=== PATIENT | male | born 1935 | race African-American/Black ===

== ENCOUNTER 2016-07-03 15:00 | Inpatient (IN) | payer MEDICARE, OTHER ==
--- NOTE | 2016-07-03 16:14 | ER Document Report ---
ED General - General Chief Complaint: High Blood Sugar Stated Complaint: BLOOD SUGAR ISSUE Notes: This is a 72-year-old male diabetes, history of a flutter who presents to the ER with increased lethargy, elevated blood sugars, right foot pain and frequent falling over the past several days. Family states he's been stuck on the floor a few times for several hours because he could not get himself up. He does live alone but has a nephew that checks on him daily. He denies fevers but states he's had some chills and sweats. He's had some nausea but no vomiting. He states blood sugars up and running in the 3-400 range which is high for him. He notes that the foot has been bleeding and had a bad odor. TRAVEL OUTSIDE OF THE [place] IN LAST 30 DAYS: No - HPI Onset/Duration: Gradual - Related Data Allergies/Adverse Reactions: No Known Allergies Allergy (Unverified 02/20/14 21:28) Home Medications: Current Home Medications Amlodipine Besylate [Norvasc 10 mg Tablet] 10 mg PO DAILY 07/03/16 [History] Apixaban [Eliquis 5 mg Tablet] 5 mg PO Q12 07/03/16 [History] Aspirin [Ecotrin] 325 mg PO DAILY 07/03/16 [History] B Complex & C No.20/Folic Acid [Renal Caps Softgel] 1 cap PO DAILY 07/03/16 [ History] Bumetanide [Bumex 1 mg Tablet] 1 mg PO DAILY 07/03/16 [History] Colchicine [Colcrys 0.6 mg Tablet] 0.6 mg PO DAILY 07/03/16 [History] Ergocalciferol (Vitamin D2) [Vitamin D2] 50,000 units PO ABDALLA 07/03/16 [History] Ferrous Sulfate [Feosol 325 mg Tablet] 325 mg PO BID 07/03/16 [History] Glipizide [Glucotrol 10 mg Tablet] 10 mg PO DAILY 07/03/16 [History] Insulin Glargine,Hum.rec.anlog [Lantus] 40 units SQ QHS 07/03/16 [History] Isosorbide Mononitrate [Imdur 30 mg Tablet.er] 30 mg PO DAILY 07/03/16 [History] Metoprolol Tartrate [Lopressor 25 mg Tablet] 25 mg PO DAILY 07/03/16 [History] Pantoprazole Sodium [Protonix] 40 mg PO DAILY 07/03/16 [History] Potassium Chloride [Klor-Con 10] 10 meq PO DAILY 07/03/16 [History] Red Yeast Rice 1 cap PO DAILY 07/03/16 [History] Tiotropium [place] [Spiriva Handihaler 18 mcg/dose (30 Dose)] 1 cap IH DAILY 05/09 [History] Past Medical History - General Information source: Patient - Social History Smoking Status: Unknown if Ever Smoked Frequency of alcohol use: None Drug Abuse: None Family History: Reviewed & Not Pertinent - Past Medical History Cardiac Medical History: Reports: Hx Atrial Fibrillation, Hx Congestive Heart Failure, Hx Hypercholesterolemia, Hx Hypertension Pulmonary Medical History: Reports: Hx COPD Endocrine Medical History: Reports: Hx Diabetes Mellitus Type 2 - SINCE 1985 Malignancy Medical History: Reports Hx Prostate Cancer Psychiatric Medical History: Reports: Hx Depression Past Surgical History: Reports: Hx Nose Surgery - WHILE IN SERVICES. Denies: Hx Adenoidectomy - Immunizations Hx Diphtheria, Pertussis, Tetanus Vaccination: Yes Hx Pneumococcal Vaccination: 03/23/15 Review of Systems - Review of Systems Constitutional: Chills, Fever, Malaise, Weakness Cardiovascular: Lightheaded. denies: Chest pain, Syncope Respiratory: denies: Wheezing Musculoskeletal: Leg swelling Skin: Rash Hematologic/Lymphatic: denies: Swollen glands Neurological/Psychological: Numbness - Diabetic neuropathy Physical Exam - Vital signs Vitals: Resp Pulse Ox 29 H 95 07/03/16 15:29 07/03/16 15:29 - General General appearance: Appears well, Alert In distress: None Notes: Very pleasant jovial male in no distress - HEENT Head: Normocephalic Conjunctiva: Normal Pupils: PERRL - Respiratory Respiratory status: No respiratory distress Breath sounds: Normal - Cardiovascular Rhythm: Irregularly irregular Murmur: No - Abdominal Inspection: Normal Tenderness: Nontender - Back Back: Normal - Extremities General upper extremity: Normal inspection General lower extremity: Other - Chronic brawny edema bilateral lower extremities with severe dermatitis, the right foot has an open ulcer on the lateral aspect with a foul odor, sloughing skin and gross purulence - Neurological Orientation: AAOx4 - Psychological Associated symptoms: Normal affect - Skin Skin Temperature: Warm Skin Moisture: Dry Skin Color: Normal Course - Re-evaluation Re-evalutation: 07/03/16 18:13 discussed with Mago who will admit. Consulted Dr. Cárdenas regarding diabetic foot wound and osteomyelitis. 07/03/16 22:07 - Vital Signs Vital signs: Temp Pulse Resp BP Pulse Ox 98.0 F 78 27 H 190/72 H 95 07/03/16 18:16 07/03/16 18:16 07/03/16 19:01 07/03/16 19:01 07/03/16 19:01 - Laboratory Result Diagrams: 07/03/16 15:34 07/03/16 15:34 Laboratory results interpreted by me: 07/03/16 07/03/16 07/03/16 15:13 15:34 15:34 WBC 15.9 H RBC 4.24 L Hgb 10.7 L Hct 32.7 L MCV 77 L MCH 25.2 L RDW 14.4 H Seg Neuts % (Manual) 84 H Lymphocytes % (Manual) 5 L Abs Neuts (Manual) 13.4 H Abs Monocytes (Manual) 1.6 H PT 23.2 H APTT 48.6 H Sodium Carbon Dioxide BUN Creatinine Est GFR ( Amer) Est GFR (Non-Af Amer) Glucose POC Glucose 399 H AST ALT Creatine Kinase CK-MB (CK-2) Albumin Urine Protein Urine Glucose (UA) Urine Ketones Urine Blood 07/03/16 07/03/16 07/03/16 15:34 15:34 17:30 WBC RBC Hgb Hct MCV MCH RDW Seg Neuts % (Manual) Lymphocytes % (Manual) Abs Neuts (Manual) Abs Monocytes (Manual) PT APTT Sodium 136.9 L Carbon Dioxide 19 L BUN 34 H Creatinine 1.47 H Est GFR ( Amer) 56 L Est GFR (Non-Af Amer) 46 L Glucose 390 H POC Glucose AST 133 H ALT 88 H Creatine Kinase 4657 H CK-MB (CK-2) 7.23 H Albumin 3.2 L Urine Protein 100 H Urine Glucose (UA) >=500 H Urine Ketones 20 H Urine Blood MODERATE H Discharge - Discharge Clinical Impression: Osteomyelitis Qualifiers: Osteomyelitis location: foot Laterality: right Chronicity: acute Qualified Code (s): M86.171 - Other acute osteomyelitis, right ankle and foot Diabetic ketoacidosis Qualifiers: Diabetes mellitus type: due to underlying condition Diabetes mellitus complication detail: without coma Qualified Code(s): E08.10 - Diabetes mellitus due to underlying condition with ketoacidosis without coma Condition: Stable Disposition: ADMITTED INPATIENT Admitting Provider: [facility] Unit Admitted: SARA
[2016-07-03 16:23] LABS: HEMATOCRIT 32.7 % (37.9-51.0); HEMOGLOBIN 10.7 g/dL (13.5-17.0); HGB HCT DIFFERENCE -0.6; MEAN CORPUSCULAR HEMOGLOBIN 25.2 pg (27.0-33.4); MEAN CORPUSCULAR HGB CONC 32.7 g/dL (32.0-36.0); MEAN CORPUSCULAR VOLUME 77 fl (80-97); RED BLOOD COUNT 4.24 10^6/uL (4.35-5.55); RED CELL DISTRIBUTION WIDTH 14.4 % (11.5-14.0); WHITE BLOOD COUNT 15.9 10^3/uL (4.0-10.5)
[2016-07-03 16:26] LABS: PROTHROMBIN TIME 23.2 SEC (11.4-15.4)
[2016-07-03 16:27] LABS: PARTIAL THROMBOPLASTIN TIME 48.6 SEC (23.5-35.8)
[2016-07-03 16:34] LABS: ALANINE AMINOTRANSFERASE 88 U/L (21-72); ALBUMIN 3.2 g/dL (3.5-5.0); ALKALINE PHOSPHATASE 116 U/L (38-126); ANION GAP 19 (5-19); ASPARTATE AMINO TRANSFERASE 133 U/L (17-59); BLOOD UREA NITROGEN 34 mg/dL (7-20); CALCIUM 8.8 mg/dL (8.4-10.2); CARBON DIOXIDE 19 mmol/L (22-30); CHLORIDE 99 mmol/L (98-107); CREATININE RESULT 1.47 mg/dL (0.52-1.25); GLUCOSE 390 mg/dL (75-110); POTASSIUM 4.2 mmol/L (3.6-5.0); SODIUM 136.9 mmol/L (137-145); TOTAL PROTEIN 7.5 g/dL (6.3-8.2)
[2016-07-03 16:45] LABS: BASOPHILS % (MANUAL) 0 % (0-2); EOSINOPHILS % (MANUAL) 1 % (0-6); LYMPHOCYTES % (MANUAL) 5 % (13-45); TOTAL CELLS COUNTED 100
[2016-07-03 16:47] LABS: ANISOCYTOSIS SLIGHT; HYPOCHROMASIA SLIGHT; MICROCYTOSIS SLIGHT; TOXIC GRANULATION SLIGHT
[2016-07-03 16:52] LABS: CREATINE KINASE 4657 U/L (55-170)
[2016-07-03 17:01] LABS: CREATINE KINASE MB 7.23 ng/mL (<4.55)
[2016-07-03 17:08] LABS: TROPONIN I 0.1 ng/mL
[2016-07-03 17:56] LABS: AMORPHOUS SEDIMENT,URINE TRACE /HPF; APPEARANCE,URINE SLIGHTLY-CLOUDY; BILIRUBIN,URINE NEGATIVE (NEGATIVE); GLUCOSE, URINE >=500 mg/dL (NEGATIVE); KETONES,URINE 20 mg/dL (NEGATIVE); LEUKOCYTE ESTERASE,URINE NEGATIVE (NEGATIVE); NITRITE,URINE NEGATIVE (NEGATIVE); PROTEIN,URINE 100 mg/dL (NEGATIVE); URINE SPECIFIC GRAVITY 1.016; UROBILINOGEN,URINE NEGATIVE mg/dL (<2.0)
[2016-07-03] MEDS ORDERED: PIPERACILLIN/TAZOBACTAM 3.375 GM VIAL IV ONE (18:06)
[2016-07-03] MEDS ORDERED: VANCOMYCIN HCL INJ 1000 MG VIAL IV ONE (18:06)
[2016-07-03] MEDS ORDERED: NORMAL SALINE 1000 ML 1,000 ML IV ONE (18:06)
[2016-07-03] MEDS ORDERED: INSULIN LISPRO 100 UNIT/ML 3 ML VIAL SUBCUT ONE (18:07)
[2016-07-03] MEDS ORDERED: VANCOMYCIN HCL INJ 1000 MG VIAL ONE (21:12)
[2016-07-04] MEDS ORDERED: OXYCODONE-ACETAMINOPHEN 5-325 MG TABLET PO PRN (04:05)
[2016-07-04] MEDS ORDERED: IPRATROPIUM/ALBUTEROL 0.5-2.5 MG/3 ML AMPUL NEB PRN (04:06)
[2016-07-04] MEDS ORDERED: ZOLPIDEM TARTRATE 5 MG TABLET PO PRN (04:06)
[2016-07-04] MEDS ORDERED: PIPERACILLIN/TAZOBACTAM 2.25 GM VIAL IV PRN (04:14)
[2016-07-04] MEDS: NORMAL SALINE 1000 ML 1,000 ML IV PRN ×3 (05:43→16:16)
[2016-07-04] MEDS ORDERED: PIPERACILLIN SODIUM/TAZOBACTAM 2.25 GM in NORMAL SALINE 50 ML IV SCH (06:00)
[2016-07-04] MEDS ORDERED: PIPERACILLIN/TAZOBACTAM 2.25 GM VIAL IV ONE (06:23)
[2016-07-04] MEDS ORDERED: DEXTROSE 40% GEL 15 GM TUBE PO PRN (08:03)
[2016-07-04] MEDS ORDERED: DEXTROSE 50%-WATER SYRINGE 25 GM/50 ML DOSE IV PRN (08:03)
[2016-07-04] MEDS ORDERED: DEXTROSE 40% GEL 15 GM TUBE X 2 PO PRN (08:03)
[2016-07-04] MEDS ORDERED: DEXTROSE 50%-WATER SYRINGE 12.5 GM/25 ML DOSE IV PRN (08:03)
[2016-07-04] MEDS ORDERED: GLUCAGON,HUMAN RECOMB 1 MG INJ IM PRN (08:03)
--- NOTE | 2016-07-04 08:09 | PDOC CONSULTATION ---
History of Present Illness Admission Date/PCP: 07/04/16 05:33 SUDEEP CHEUNG History of Present Illness: CHARLA WEBB JR is a 80 year old -[place] male, poor historian, with multiple comorbidities including diabetes, a flutter/A. fib, CHF, hypertension, hypercholesterolemia, COPD, prostate cancer, depression, diabetic peripheral neuropathy, chronic lymphedema, chronic leg wounds. Patient reports that the problems with his feet began years ago when he twisted his knee on a pile of void. He has been seen locally by Dr. Curry. He does not have an accurate report for when his right foot wounds worsened to the current state. He is being admitted for uncontrolled blood sugars, lethargy, frequent falls recently , chills and sweats, right foot pain with drainage, bleeding and bad odor. X-ray of the right foot revealed degenerative changes of the right fifth phalanx and right fifth metatarsal as well as soft tissue swelling, is highly suspicious for osteomyelitis. Past Medical History Cardiac Medical History: Reports: Atrial Fibrillation, Congestive Heart Failure , Hyperlipidema, Hypertension Pulmonary Medical History: Reports: Chronic Obstructive Pulmonary Disease (COPD) Neurological Medical History: Reports: Other - Diabetic peripheral neuropathy. Frequent falls. Endocrine Medical History: Reports: Diabetes Mellitus Type 2 - SINCE 1985 Psychiatric Medical History: Reports: Depression Past Surgical History Past Surgical History: Reports: Other - No surgery many years ago while in the [place]. Social History Information Source: Patient Lives with: Alone - , no kids. Has a nephew that looks in on him occasionally. Smoking Status: Former Smoker Last Time Smoked: at least 10 years ago Frequency of Alcohol Use: None Hx Recreational Drug Use: No Drugs: None Hx Prescription Drug Abuse: No - Advance Directive Resuscitation Status: Full Code Family History Family History: CAD, CVA, DM Parental Family History Reviewed: Yes Children Family History Reviewed: NA Sibling(s) Family History Reviewed.: Yes Medication/Allergy Home Medications: Amlodipine Besylate [Norvasc 10 mg Tablet] 10 mg PO DAILY 07/03/16 Apixaban [Eliquis 5 mg Tablet] 5 mg PO Q12 07/03/16 Aspirin [Ecotrin] 325 mg PO DAILY 07/03/16 B Complex & C No.20/Folic Acid [Renal Caps Softgel] 1 cap PO DAILY 07/03/16 Bumetanide [Bumex 1 mg Tablet] 1 mg PO DAILY 07/03/16 Colchicine [Colcrys 0.6 mg Tablet] 0.6 mg PO DAILY 07/03/16 Ergocalciferol (Vitamin D2) [Vitamin D2] 50,000 units PO ABDALLA 07/03/16 Ferrous Sulfate [Feosol 325 mg Tablet] 325 mg PO BID 07/03/16 Glipizide [Glucotrol 10 mg Tablet] 10 mg PO DAILY 07/03/16 Insulin Glargine,Hum.rec.anlog [Lantus] 40 units SQ QHS 07/03/16 Isosorbide Mononitrate [Imdur 30 mg Tablet.er] 30 mg PO DAILY 07/03/16 Metoprolol Tartrate [Lopressor 25 mg Tablet] 25 mg PO DAILY 07/03/16 Pantoprazole Sodium [Protonix] 40 mg PO DAILY 07/03/16 Potassium Chloride [Klor-Con 10] 10 meq PO DAILY 07/03/16 Red Yeast Rice 1 cap PO DAILY 07/03/16 Tiotropium [place] [Spiriva Handihaler 18 mcg/dose (30 Dose)] 1 cap IH DAILY 05/09 Allergies/Adverse Reactions: No Known Allergies Allergy (Unverified 02/20/14 21:28) Review of Systems All systems: reviewed and no additional remarkable complaints except as stated Physical Exam Vital Signs: Temp Pulse Resp BP Pulse Ox 98.5 F 102 H 20 152/76 H 93 07/04/16 05:12 07/04/16 05:12 07/04/16 05:12 07/04/16 05:12 07/04/16 04:02 General appearance: PRESENT: no acute distress Head exam: PRESENT: normocephalic Eye exam: PRESENT: EOMI Mouth exam: PRESENT: tongue midline Teeth exam: PRESENT: poor dentation Neck exam: ABSENT: JVD, lymphadenopathy, thyromegaly, tracheal deviation Respiratory exam: PRESENT: clear to auscultation cornell Cardiovascular exam: PRESENT: irregular rhythm GI/Abdominal exam: PRESENT: soft. ABSENT: distended, tenderness Extremities exam: PRESENT: tenderness, +2 edema, other - Bilateral lower extremities with chronic venous stasis and lymphedema changes. Elephantiasis of the skin. Changes of the nails. No cellulitic changes in the left leg, however the right leg has erythema, induration and tenderness from the mid calf down through the foot. The foot has 3 open draining wounds oriented on the lateral and plantar surfaces. The fifth digit and surrounding areas have compromise and blisters. There is purulent drainage from the open wounds. Debridement is done. See accompanying operative note. Musculoskeletal exam: PRESENT: tenderness Neurological exam: PRESENT: alert, oriented to person, oriented to place, oriented to situation Psychiatric exam: PRESENT: appropriate affect, normal mood Skin exam: PRESENT: other - Severe skin changes to his lower extremities. Results Impressions: Chest X-Ray 07/03/16 16:13 IMPRESSION: No significant interval change. Cardiomegaly with mild pulmonary vascular congestion. No acute consolidations or pleural effusions are identified. Foot X-Ray 07/03/16 16:14 IMPRESSION: EROSIVE CHANGES INVOLVING THE HEAD OF THE 5TH METATARSAL AND BASE OF THE PROXIMAL PHALANX OF THE 5TH TOE. FINDINGS ARE SUSPICIOUS FOR OSTEOMYELITIS, PROBABLY CHRONIC. GENERAL SOFT TISSUE SWELLING. NO ACUTE FINDINGS. Assessment & Plan - Diagnosis (1) Diabetic ketoacidosis Qualifiers: Diabetes mellitus type: type 2 Diabetes mellitus complication detail: without coma Qualified Code(s): E13.10 - Other specified diabetes mellitus with ketoacidosis without coma Is this a current diagnosis for this admission?: Yes (2) Osteomyelitis Qualifiers: Osteomyelitis location: foot Laterality: right Chronicity: acute Qualified Code(s): M86.171 - Other acute osteomyelitis, right ankle and foot Is this a current diagnosis for this admission?: YesPlan: Right foot with infected, necrotic diabetic foot wounds. Consent was obtained and a bedside debridement was performed. See operative note. Recommend antibiotics, daily wound care. He will probably need more debridements and eventual amputation, but blood sugars and infection must be controlled before definitive amputation is performed. (3) Anemia of chronic disease Is this a current diagnosis for this admission?: Yes (4) Atrial flutter Is this a current diagnosis for this admission?: Yes (6) CHF exacerbation Qualifiers: Congestive heart failure type: unspecified congestive heart failure type Qualified Code(s): I50.9 - Heart failure, unspecified Is this a current diagnosis for this admission?: Yes (7) Diabetes mellitus type 2 in obese Is this a current diagnosis for this admission?: Yes (8) COPD (chronic obstructive pulmonary disease) Is this a current diagnosis for this admission?: Yes
--- NOTE | 2016-07-04 08:19 | Operative Report ---
Operative Report DATE OF SURGERY: 07/04/16 PREOPERATIVE DIAGNOSIS: Right foot diabetic wound POSTOPERATIVE DIAGNOSIS: Right foot diabetic wound OPERATION: Debridement of right foot diabetic wound SURGEON: JENNY GONZALEZ ANESTHESIA: Local TISSUE REMOVED OR ALTERED: Necrotic tissue from lateral aspect of right foot near fifth toe and fifth metatarsal. Full-thickness debridement down to tendon/ bone/ligament. COMPLICATIONS: None noted ESTIMATED BLOOD LOSS: 20 mL INTRAOPERATIVE FINDINGS: Large wound with undermining encompassing significant portion of the distal, lateral and mid foot. Necrotic tissue from lateral aspect of right foot near fifth toe and fifth metatarsal. PROCEDURE: Consent was obtained. We discussed incision and debridement of right foot diabetic wound. We discussed risks benefits alternatives. Risk included but not limited to damage to surrounding structures, bleeding, infection, reaction to local anesthetic. He understands and wishes to proceed. Time out was performed. The patient's right foot was prepped and draped in the normal sterile fashion with chlorhexidine and then again around the open wounds with Betadine swabs. The around the open wounds was infiltrated with local anesthetic. An 11 blade was used to excise skin and subcutaneous tissue connecting all 3 open wounds. There was copious return of purulent material. A culture was taken and sent to lab for analysis. The cavity was irrigated and debrided with hydrogen peroxide and swabs. The wound tracked into the medial midfoot as well as the medial forefoot. The cavity was further debrided with gauze. The cavity was packed with quarter-inch iodoform gauze. Dressing was placed over that. Patient tolerated the procedure well. All sharps were counted for and disposed of properly. There was some skin edge and wound bed bleeding. This was poorly controlled with a hand-held battery cautery. The patient is on aliquots. Direct pressure help control the uterus. The wound was then packed above the iodoform gauze with gauze 4 x 4's and then wrapped with Kerlix roll and Coban.
[2016-07-04 08:34] LABS: HEMATOCRIT 31.3 % (37.9-51.0); HGB HCT DIFFERENCE -1.3; MEAN CORPUSCULAR HEMOGLOBIN 24.6 pg (27.0-33.4); MEAN CORPUSCULAR HGB CONC 32.1 g/dL (32.0-36.0); MEAN CORPUSCULAR VOLUME 77 fl (80-97); RED BLOOD COUNT 4.08 10^6/uL (4.35-5.55); RED CELL DISTRIBUTION WIDTH 14.2 % (11.5-14.0); WHITE BLOOD COUNT 14.5 10^3/uL (4.0-10.5)
[2016-07-04 08:56] LABS: ALANINE AMINOTRANSFERASE 75 U/L (21-72); ALBUMIN 2.5 g/dL (3.5-5.0); ALKALINE PHOSPHATASE 97 U/L (38-126); ANION GAP 16 (5-19); ASPARTATE AMINO TRANSFERASE 105 U/L (17-59); BILIRUBIN,TOTAL 0.6 mg/dL (0.2-1.3); BLOOD UREA NITROGEN 27 mg/dL (7-20); CALCIUM 8.7 mg/dL (8.4-10.2); CARBON DIOXIDE 21 mmol/L (22-30); CHLORIDE 104 mmol/L (98-107); CHOLESTEROL 112.47 mg/dL (0-200); CREATININE RESULT 1.11 mg/dL (0.52-1.25); Direct HDL 23 mg/dL (>40); GLUCOSE 284 mg/dL (75-110); POTASSIUM 4.1 mmol/L (3.6-5.0); SODIUM 140.9 mmol/L (137-145); TOTAL PROTEIN 6.8 g/dL (6.3-8.2); TRIGLYCERIDES 116 mg/dL (<150)
[2016-07-04 09:08] LABS: DIRECT LDL 52 mg/dL (<100)
[2016-07-04 09:11] LABS: CREATINE KINASE 2326 U/L (55-170)
--- NOTE | 2016-07-04 09:43 | EKG REPORT ---
SEVERITY:- ABNORMAL ECG - ATRIAL FLUTTER/FIBRILLATION, A-RATE 240 PROLONGED QT INTERVAL : Confirmed by: Maria D Orourke MD 04-Jul-2016 09:41:27
[2016-07-04] MEDS ORDERED: ENOXAPARIN SODIUM INJ 30 MG/0.3 ML DISP.SYRIN SUBCUT SCH (10:00)
[2016-07-04] MEDS ORDERED: LANSOPRAZOLE 15 MG TAB.RAP.DR PO SCH (10:00)
[2016-07-04] MEDS: PIPERACILLIN SODIUM/TAZOBACTAM 3.375 GM in NORMAL SALINE 100 ML IV SCH ×3 (12:08→21:17)
[2016-07-04] MEDS: ACETAMINOPHEN 325 MG TABLET PO PRN (12:15)
[2016-07-04] MEDS: LANSOPRAZOLE 30 MG TAB.RAP.DR PO SCH (12:16)
[2016-07-04] MEDS: ASPIRIN 325 MG TABLET PO SCH (12:16)
[2016-07-04] MEDS: POTASSIUM CHLORIDE 10 MEQ TABLET.SA PO SCH (12:17)
[2016-07-04] MEDS: APIXABAN 5 MG TABLET PO SCH ×2 (12:17→21:19)
[2016-07-04] MEDS: GLIPIZIDE 10 MG TABLET PO SCH (12:17)
[2016-07-04] MEDS: AMLODIPINE BESYLATE 10 MG TABLET PO SCH (12:18)
[2016-07-04] MEDS: FERROUS SULFATE 325 MG TABLET PO SCH ×2 (12:18→16:15)
[2016-07-04] MEDS: ISOSORBIDE MONONITRATE 30 MG TAB.ER.24H PO SCH (12:18)
[2016-07-04] MEDS: TIOTROPIUM BROMIDE DPI 5 CAP/KIT (18 MCG/CAP) IH SCH (12:19)
[2016-07-04] MEDS: INSULIN LISPRO 100 UNIT/ML 3 ML VIAL SUBCUT PRN ×2 (12:21→23:43)
--- NOTE | 2016-07-04 13:36 | PDOC H&P ---
History of Present Illness Admission Date/PCP: 07/04/16 05:33 SUDEEP CHEUNG History of Present Illness: 80 yr old man with h xof DM2/DM neuropathy/HTN/Hyperlipidemia/COPD/CHF/A-fib/ JUNIOR on CPAP/CKD stage 3/Fe def. anemia/Vitamin D def/Gout/Osteoarthritis/ Ca Prostate who is non-compliant with medications, diet and follow up with his physicians. He has been having worsening wound right foot that is draining foul smelling fluid and bleeding in the past 1 week.He has had several falls lately.His BG is high due to non-compliance. He is admitted for DM right foot ulcer/Osteomyelitis of right foot/Rhabdomyolysis/DKA/CHF decompensation. Past Medical History Cardiac Medical History: Reports: Atrial Fibrillation, Congestive Heart Failure , Hyperlipidema, Hypertension Pulmonary Medical History: Reports: Chronic Obstructive Pulmonary Disease (COPD) Neurological Medical History: Reports: Other - Diabetic peripheral neuropathy. Frequent falls. Endocrine Medical History: Reports: Diabetes Mellitus Type 2 - SINCE 1985 Psychiatric Medical History: Reports: Depression Past Surgical History Past Surgical History: Reports: Other - No surgery many years ago while in the [employer]. Social History Lives with: Alone - , no kids. Has a nephew that looks in on him occasionally. Smoking Status: Former Smoker Last Time Smoked: at least 10 years ago Frequency of Alcohol Use: None Hx Recreational Drug Use: No Drugs: None Hx Prescription Drug Abuse: No - Advance Directive Resuscitation Status: Full Code Family History Family History: CAD, CVA, DM Parental Family History Reviewed: Yes Children Family History Reviewed: Yes Sibling(s) Family History Reviewed.: Yes Medication/Allergy Home Medications: Amlodipine Besylate [Norvasc 10 mg Tablet] 10 mg PO DAILY 07/03/16 Apixaban [Eliquis 5 mg Tablet] 5 mg PO Q12 07/03/16 Aspirin [Ecotrin] 325 mg PO DAILY 07/03/16 B Complex & C No.20/Folic Acid [Renal Caps Softgel] 1 cap PO DAILY 07/03/16 Bumetanide [Bumex 1 mg Tablet] 1 mg PO DAILY 07/03/16 Colchicine [Colcrys 0.6 mg Tablet] 0.6 mg PO DAILY 07/03/16 Ergocalciferol (Vitamin D2) [Vitamin D2] 50,000 units PO ABDALLA 07/03/16 Ferrous Sulfate [Feosol 325 mg Tablet] 325 mg PO BID 07/03/16 Glipizide [Glucotrol 10 mg Tablet] 10 mg PO DAILY 07/03/16 Insulin Glargine,Hum.rec.anlog [Lantus] 40 units SQ QHS 07/03/16 Isosorbide Mononitrate [Imdur 30 mg Tablet.er] 30 mg PO DAILY 07/03/16 Metoprolol Tartrate [Lopressor 25 mg Tablet] 25 mg PO DAILY 07/03/16 Pantoprazole Sodium [Protonix] 40 mg PO DAILY 07/03/16 Potassium Chloride [Klor-Con 10] 10 meq PO DAILY 07/03/16 Red Yeast Rice 1 cap PO DAILY 07/03/16 Tiotropium [place] [Spiriva Handihaler 18 mcg/dose (30 Dose)] 1 cap IH DAILY 05/09 Allergies/Adverse Reactions: No Known Allergies Allergy (Unverified 02/20/14 21:28) Review of Systems All systems: as per PMH Constitutional: PRESENT: as per HPI Nose, Mouth, and Throat: PRESENT: as per HPI Cardiovascular: PRESENT: as per HPI Respiratory: PRESENT: as per HPI Gastrointestinal: PRESENT: as per HPI Genitourinary: PRESENT: as per HPI Musculoskeletal: PRESENT: as per HPI Integumentary: PRESENT: as per HPI, erythema, wounds Neurological: PRESENT: as per HPI Psychiatric: PRESENT: as per HPI Endocrine: PRESENT: as per HPI Hematologic/Lymphatic: PRESENT: as per HPI Physical Exam Vital Signs: Temp Pulse Resp BP Pulse Ox 98.2 F 87 18 179/53 H 98 07/04/16 11:55 07/04/16 11:55 07/04/16 11:55 07/04/16 11:55 07/04/16 11:55 Intake & Output 07/03/16 07/04/16 07/05/16 06:59 06:59 06:59 Intake Total 250 Balance 250 General appearance: PRESENT: no acute distress, morbidly obese, well-developed, well-nourished Head exam: PRESENT: atraumatic, normocephalic Eye exam: PRESENT: EOMI, PERRLA Ear exam: PRESENT: normal external ear exam, TM's normal bilaterally Mouth exam: PRESENT: neck supple, tongue midline Neck exam: PRESENT: full ROM Respiratory exam: PRESENT: decreased breath sounds, symmetrical Cardiovascular exam: PRESENT: irregular rhythm, +S1, +S2 Pulses: PRESENT: +1 pedal pulses bilateral GI/Abdominal exam: PRESENT: normal bowel sounds, soft Extremities exam: PRESENT: other - Right foot- necrotic ulcer with foul smelling pus more at 4th and 5th toes with induration. Psychiatric exam: PRESENT: normal mood Results Laboratory Results: 07/04/16 07:46 07/04/16 07:46 07/04/16 07/04/16 07/04/16 07:46 07:46 07:46 WBC 14.5 H RBC 4.08 L Hgb 10.0 L Hct 31.3 L MCV 77 L MCH 24.6 L MCHC 32.1 RDW 14.2 H Plt Count 316 Sodium 140.9 Potassium 4.1 Chloride 104 Carbon Dioxide 21 L Anion Gap 16 BUN 27 H Creatinine 1.11 Est GFR ( Amer) > 60 Est GFR (Non-Af Amer) > 60 Glucose 284 H Calcium 8.7 Total Bilirubin 0.6 AST 105 H ALT 75 H Alkaline Phosphatase 97 Total Protein 6.8 Albumin 2.5 L Triglycerides 116 Cholesterol 112.47 LDL Cholesterol Direct 52 VLDL Cholesterol 23.0 HDL Cholesterol 23 L TSH 1.54 07/04/16 07/04/16 07:46 07:46 Creatine Kinase 2326 H NT-Pro-B Natriuret Pep 82460 H Impressions: Chest X-Ray 07/03/16 16:13 IMPRESSION: No significant interval change. Cardiomegaly with mild pulmonary vascular congestion. No acute consolidations or pleural effusions are identified. Foot X-Ray 07/03/16 16:14 IMPRESSION: EROSIVE CHANGES INVOLVING THE HEAD OF THE 5TH METATARSAL AND BASE OF THE PROXIMAL PHALANX OF THE 5TH TOE. FINDINGS ARE SUSPICIOUS FOR OSTEOMYELITIS, PROBABLY CHRONIC. GENERAL SOFT TISSUE SWELLING. NO ACUTE FINDINGS. Lower Extremity MRI 07/04/16 09:00 IMPRESSION: 5th metatarsal and 5th proximal phalanx osteomyelitis Extensive deep tissue cellulitis right foot without gross evidence of abscess Assessment & Plan - Diagnosis (1) Osteomyelitis of right foot Qualifiers: Chronicity: acute Qualified Code(s): M86.171 - Other acute osteomyelitis, right ankle and foot Is this a current diagnosis for this admission?: YesPlan: Ct with Zosyn 3.375 G IV q6h; IV Vancomycin as per OM protocol; Percocet 5/325 1 Q^H prn; F/u blood and wound cultures; F/u general surgeon for wound debridement. (2) Rhabdomyolysis Is this a current diagnosis for this admission?: YesPlan: Ct with IV fluids normal saline at 125cc/hour; Monitor chemistries and CK daily ; Strict input/out put chart. (3) Diabetic ketoacidosis Qualifiers: Diabetes mellitus type: type 2 Diabetes mellitus complication detail: without coma Qualified Code(s): E13.10 - Other specified diabetes mellitus with ketoacidosis without coma Plan: Ct with IV fluid normal saline at 125 cc/hr; Slidding scale with humalog insulin [facility] protocol; Lantus insulin 40 iu qhs sucut; 1800 calorie ADA diet. (4) CHF exacerbation Qualifiers: Congestive heart failure type: unspecified congestive heart failure type Qualified Code(s): I50.9 - Heart failure, unspecified Is this a current diagnosis for this admission?: YesPlan: Ct with Bumetanide 1 mg daily po; KCL 10 mEQ daily po; Isosorbide mononitrate 30 mg daily po; serial EKG/cardiac enzymes; Daily wt; strict input/out put chart ; monitor chemistries daily. (5) Atrial fibrillation Qualifiers: Atrial fibrillation type: paroxysmal Qualified Code(s): I48.0 - Paroxysmal atrial fibrillation Is this a current diagnosis for this admission?: YesPlan: Ct with Eliquis 5 mg BID po; Metoprolol 25 mg BID po. (6) Hypertension Is this a current diagnosis for this admission?: YesPlan: Ct with Amlodipine 10 mg daily po; Metoprolol 25 mg BID po; 2g sodium diet. (7) Hyperlipidemia Is this a current diagnosis for this admission?: YesPlan: Hold Atorvastatin due to rhabdomyolysis; ct with 200 mg cholesterol diet. (8) COPD (chronic obstructive pulmonary disease) Is this a current diagnosis for this admission?: YesPlan: Ct with Duonebs q6h pr; Spiriva 18 mcg daily; Oxygen by N/C 2 L/min. (9) Chronic kidney disease (CKD) Is this a current diagnosis for this admission?: YesPlan: Avoid nephrotoxics; daily chemistries; daily wt; strict input/out put chart. (10) Obstructive sleep apnea Is this a current diagnosis for this admission?: YesPlan: Ct with CPAP at night. (11) Iron deficiency anemia Is this a current diagnosis for this admission?: YesPlan: Ct with Ferrous sulfate 325 mg BID po; monitor CBC daily. (12) Vitamin D deficiency Is this a current diagnosis for this admission?: YesPlan: Ct with Vitamin D 64638ht weekly. (13) GERD (gastroesophageal reflux disease) Is this a current diagnosis for this admission?: YesPlan: Ct with Prevacid 30 mg daily po. (14) Prostate cancer Is this a current diagnosis for this admission?: NoPlan: Ct with Alfuzosin 10 mg qd po. (15) Morbid obesity Is this a current diagnosis for this admission?: YesPlan: Cty with diet/exercise counseling. (16) DVT prophylaxis Is this a current diagnosis for this admission?: YesPlan: Ct with Eliquis 5 mg BID po; SCD. - Time Time Spent: 30 to 50 Minutes Medications reviewed and adjusted accordingly: Yes Anticipated discharge: Home Within: within 72 hours - Inpatient Certification Medical Necessity: Failure to Improve With Outpatient Therapy, Significant Comorbidiites Make Outpatient Treatment Too Risky, Need Close Monitoring Due to Risk of Patient Decompensation, Need For IV Fluids, Need For Continuous Telemetry Monitoring, Need for Pain Control, Need for IV Antibiotics, Need for Surgery
[2016-07-04] MEDS: BUMETANIDE 1 MG TABLET PO SCH (13:41)
--- NOTE | 2016-07-04 14:34 | PDOC PROGRESS REPORT ---
Subjective Progress Note for:: 07/04/16 Subjective:: nad Physical Exam Vital Signs: Temp Pulse Resp BP Pulse Ox 98.2 F 87 18 179/53 H 98 07/04/16 11:55 07/04/16 11:55 07/04/16 11:55 07/04/16 11:55 07/04/16 11:55 Intake & Output 07/03/16 07/04/16 07/05/16 06:59 06:59 06:59 Intake Total 250 Balance 250 General appearance: PRESENT: no acute distress Extremities exam: PRESENT: other - right mid foot plantar wound wide open with scant drainage. minimal surrounding erythema. no grossly necrotic tissue. surprisingly clean. Results Laboratory Results: 07/04/16 07:46 07/04/16 07:46 07/04/16 07/04/16 07/04/16 07:46 07:46 07:46 WBC 14.5 H RBC 4.08 L Hgb 10.0 L Hct 31.3 L MCV 77 L MCH 24.6 L MCHC 32.1 RDW 14.2 H Plt Count 316 Sodium 140.9 Potassium 4.1 Chloride 104 Carbon Dioxide 21 L Anion Gap 16 BUN 27 H Creatinine 1.11 Est GFR ( Amer) > 60 Est GFR (Non-Af Amer) > 60 Glucose 284 H Calcium 8.7 Total Bilirubin 0.6 AST 105 H ALT 75 H Alkaline Phosphatase 97 Total Protein 6.8 Albumin 2.5 L Triglycerides 116 Cholesterol 112.47 LDL Cholesterol Direct 52 VLDL Cholesterol 23.0 HDL Cholesterol 23 L TSH 1.54 07/04/16 07/04/16 07:46 07:46 Creatine Kinase 2326 H NT-Pro-B Natriuret Pep 53598 H Impressions: Chest X-Ray 07/03/16 16:13 IMPRESSION: No significant interval change. Cardiomegaly with mild pulmonary vascular congestion. No acute consolidations or pleural effusions are identified. Foot X-Ray 07/03/16 16:14 IMPRESSION: EROSIVE CHANGES INVOLVING THE HEAD OF THE 5TH METATARSAL AND BASE OF THE PROXIMAL PHALANX OF THE 5TH TOE. FINDINGS ARE SUSPICIOUS FOR OSTEOMYELITIS, PROBABLY CHRONIC. GENERAL SOFT TISSUE SWELLING. NO ACUTE FINDINGS. Lower Extremity MRI 07/04/16 09:00 IMPRESSION: 5th metatarsal and 5th proximal phalanx osteomyelitis Extensive deep tissue cellulitis right foot without gross evidence of abscess Assessment & Plan - Diagnosis (1) Osteomyelitis of right foot Qualifiers: Chronicity: acute Qualified Code(s): M86.171 - Other acute osteomyelitis, right ankle and foot Is this a current diagnosis for this admission?: YesPlan: Evidence of osteomyelitis of the fifth metatarsal. Patient will require additional debridement but the the bedside debridement that was done yesterday has been effective in the controlling the infection for now. Will obtain cardiology consultation for guidance the concerning his anticoagulation. Considerable bleeding risk with attempt at extensive debridement on anticoagulation. Local wound care for now.
[2016-07-04] MEDS: VANCOMYCIN HCL 1,250 MG in DEXTROSE 5%-WATER 250 ML IV SCH (16:14)
[2016-07-04] MEDS: INSULIN GLARGINE,HUM.REC.ANLOG 300 UNIT/3 ML INSULN.PEN SUBCUT SCH (21:17)
[2016-07-05] MEDS: NORMAL SALINE 1000 ML 1,000 ML IV PRN ×2 (01:40→20:18)
[2016-07-05] MEDS: VANCOMYCIN HCL 1,250 MG in DEXTROSE 5%-WATER 250 ML IV SCH ×2 (02:16→13:47)
[2016-07-05] MEDS: PIPERACILLIN SODIUM/TAZOBACTAM 3.375 GM in NORMAL SALINE 100 ML IV SCH ×4 (04:00→20:44)
[2016-07-05] MEDS: INSULIN LISPRO 100 UNIT/ML 3 ML VIAL SUBCUT PRN ×3 (07:57→23:41)
[2016-07-05] MEDS: FERROUS SULFATE 325 MG TABLET PO SCH ×2 (07:58→17:29)
[2016-07-05] MEDS: GLIPIZIDE 10 MG TABLET PO SCH (07:58)
[2016-07-05] MEDS: TIOTROPIUM BROMIDE DPI 5 CAP/KIT (18 MCG/CAP) IH SCH (10:00)
[2016-07-05] MEDS: BUMETANIDE 1 MG TABLET PO SCH (11:00)
[2016-07-05] MEDS: ISOSORBIDE MONONITRATE 30 MG TAB.ER.24H PO SCH (11:01)
[2016-07-05] MEDS: AMLODIPINE BESYLATE 10 MG TABLET PO SCH (11:01)
[2016-07-05] MEDS: ASPIRIN 325 MG TABLET PO SCH (11:01)
[2016-07-05] MEDS: APIXABAN 5 MG TABLET PO SCH ×2 (11:02→21:39)
[2016-07-05] MEDS: POTASSIUM CHLORIDE 10 MEQ TABLET.SA PO SCH (11:02)
[2016-07-05] MEDS: LANSOPRAZOLE 30 MG TAB.RAP.DR PO SCH (11:02)
--- NOTE | 2016-07-05 12:26 | PDOC PROGRESS REPORT ---
Subjective Progress Note for:: 07/05/16 Subjective:: He had debridement of right foot ulcer on 07/04/2016. He is feeling much better and his BP is still uncontrolled. WE will restart his Valsartan 320 mg qd and Metoprolol 25 mg BID; add Clonidine 0.1mg q6h prn. F/u PT/OT consult. F/u Gen. surgery for wound mgt. Physical Exam Vital Signs: Temp Pulse Resp BP Pulse Ox 98.7 F 70 16 183/78 H 97 07/05/16 07:34 07/05/16 08:00 07/05/16 08:00 07/05/16 07:34 07/05/16 08:00 Intake & Output 07/04/16 07/05/16 07/06/16 06:59 06:59 06:59 Intake Total 250 3230 Output Total 875 Balance 250 2355 Weight 122.2 kg General appearance: PRESENT: no acute distress, morbidly obese, well-developed, well-nourished Head exam: PRESENT: atraumatic, normocephalic Eye exam: PRESENT: EOMI, PERRLA Ear exam: PRESENT: TM's normal bilaterally Mouth exam: PRESENT: neck supple, tongue midline Neck exam: PRESENT: full ROM Respiratory exam: PRESENT: decreased breath sounds Cardiovascular exam: PRESENT: irregular rhythm, +S1, +S2 Pulses: PRESENT: +1 pedal pulses bilateral GI/Abdominal exam: PRESENT: normal bowel sounds - [place]. lower extremities- hyperpigmented, stasis dermatitis; right foot- minimal drainage, clean, no necrotic tissue., soft Musculoskeletal exam: PRESENT: full ROM Neurological exam: PRESENT: alert, oriented to person, oriented to place, oriented to time, CN II-XII grossly intact Psychiatric exam: PRESENT: normal mood Results Laboratory Results: 07/04/16 07:46 07/04/16 07:46 07/04/16 07/04/16 07:46 07:46 Creatine Kinase 2326 H NT-Pro-B Natriuret Pep 80421 H Impressions: Chest X-Ray 07/03/16 16:13 IMPRESSION: No significant interval change. Cardiomegaly with mild pulmonary vascular congestion. No acute consolidations or pleural effusions are identified. Foot X-Ray 07/03/16 16:14 IMPRESSION: EROSIVE CHANGES INVOLVING THE HEAD OF THE 5TH METATARSAL AND BASE OF THE PROXIMAL PHALANX OF THE 5TH TOE. FINDINGS ARE SUSPICIOUS FOR OSTEOMYELITIS, PROBABLY CHRONIC. GENERAL SOFT TISSUE SWELLING. NO ACUTE FINDINGS. Lower Extremity MRI 07/04/16 09:00 IMPRESSION: 5th metatarsal and 5th proximal phalanx osteomyelitis Extensive deep tissue cellulitis right foot without gross evidence of abscess Assessment & Plan - Diagnosis (1) Osteomyelitis of right foot Qualifiers: Chronicity: acute Qualified Code(s): M86.171 - Other acute osteomyelitis, right ankle and foot Is this a current diagnosis for this admission?: YesPlan: Ct with Zosyn 3.375 G IV q6h; IV Vancom[facility]; Percocet 5/325 1 Q^H prn; F/u blood and wound cultures; F/u general surgeon for wound care post debridement. (2) Rhabdomyolysis Is this a current diagnosis for this admission?: YesPlan: Ct with IV fluids normal saline at 125cc/hour; Monitor chemistries and CK daily ; Strict input/out put chart. (3) Diabetic ketoacidosis Qualifiers: Diabetes mellitus type: type 2 Diabetes mellitus complication detail: without coma Qualified Code(s): E13.10 - Other specified diabetes mellitus with ketoacidosis without coma Is this a current diagnosis for this admission?: YesPlan: Ct with IV fluid normal saline at 125 cc/hr; Slidding scale with humalog insulin [facility] protocol; Lantus insulin 40 iu qhs sucut; 1800 calorie ADA diet. (4) CHF exacerbation Qualifiers: Congestive heart failure type: unspecified congestive heart failure type Qualified Code(s): I50.9 - Heart failure, unspecified Is this a current diagnosis for this admission?: YesPlan: Ct with Bumetanide 1 mg daily po; KCL 10 mEQ daily po; Isosorbide mononitrate 30 mg daily po; serial EKG/cardiac enzymes; Daily wt; strict input/out put chart ; monitor chemistries daily. (5) Atrial fibrillation Qualifiers: Atrial fibrillation type: paroxysmal Qualified Code(s): I48.0 - Paroxysmal atrial fibrillation Is this a current diagnosis for this admission?: YesPlan: Ct with Eliquis 5 mg BID po; Metoprolol 25 mg BID po. (6) Hypertension Is this a current diagnosis for this admission?: YesPlan: Ct with Amlodipine 10 mg daily po; Metoprolol 25 mg BID po; 2g sodium diet. Restart Valsartan 320 mg daily po; add clonidine 0.1mg q6h prn po for SBP>150 or DBP >100. (7) Hyperlipidemia Is this a current diagnosis for this admission?: YesPlan: Hold Atorvastatin due to rhabdomyolysis; ct with 200 mg cholesterol diet. (8) COPD (chronic obstructive pulmonary disease) Is this a current diagnosis for this admission?: YesPlan: Ct with Duonebs q6h pr; Spiriva 18 mcg daily; Oxygen by N/C 2 L/min. (9) Chronic kidney disease (CKD) Is this a current diagnosis for this admission?: YesPlan: Avoid nephrotoxics; daily chemistries; daily wt; strict input/out put chart. (10) Obstructive sleep apnea Is this a current diagnosis for this admission?: YesPlan: Ct with CPAP at night. (11) Iron deficiency anemia Is this a current diagnosis for this admission?: YesPlan: Ct with Ferrous sulfate 325 mg BID po; monitor CBC daily. (12) Vitamin D deficiency Is this a current diagnosis for this admission?: YesPlan: Ct with Vitamin D [id number] weekly. (13) GERD (gastroesophageal reflux disease) Is this a current diagnosis for this admission?: YesPlan: Ct with Prevacid 30 mg daily po. (14) Prostate cancer Is this a current diagnosis for this admission?: NoPlan: Ct with Alfuzosin 10 mg qd po. (15) Morbid obesity Is this a current diagnosis for this admission?: YesPlan: Cty with diet/exercise counseling. (16) DVT prophylaxis Is this a current diagnosis for this admission?: YesPlan: Ct with Eliquis 5 mg BID po; SCD.
[2016-07-05] MEDS ORDERED: VALSARTAN 160 MG TABLET PO ONE (12:30)
--- NOTE | 2016-07-05 18:38 | PROGRESS NOTE E ---
Progress Note NAME: CHARLA WEBB : 1935 AGE: 80Y DATE: 07/05/2016 ROOM: 326 SUBJECTIVE: The patient is without complaints at this time. OBJECTIVE: VITAL SIGNS: Vital signs are noted and stable. Blood pressure 163/62, temperature 98.4, pulse rate 67, respirations 18, saturation is 100%. EXTREMITIES: The patient's dressing was removed and his right foot is inspected. The patient is noted to have osteo of the fifth metatarsal head and there appears to be an ulcer at the lateral aspect of the midportion of the fifth metatarsal. This ulcer extends laterally and posteriorly at the midfoot level with some degree of exudate at the base noted. The ulcer measures approximately 6 x 3-cm. LABORATORY: The patient's white count is down to 14.5. His electrolytes are within normal limits except for mildly elevated BUN 27, creatinine 1.1. Patient's glucose is 166 today. ASSESSMENT: OSTEOMYELITIS FIFTH METATARSAL ASPECT OF THE RIGHT FOOT. I am not sure that the patient's foot is salvageable given the location and extent of the ulcer at the lateral aspect of the fifth metatarsal which extends to the plantar aspect of the right foot at the midfoot level. The patient may need an either Syme or right below-knee amputation in the future as it is questionable whether this right foot is salvageable. DICTATING PHYSICIAN: JONNY SAUER M.D. [id number] PHY#: [id number] ID: [id number] JOB#: [id number] ACCT: [id number] cc: >
[2016-07-05] MEDS: METOPROLOL TARTRATE 25 MG TABLET PO SCH (21:39)
[2016-07-05] MEDS: INSULIN GLARGINE,HUM.REC.ANLOG 300 UNIT/3 ML INSULN.PEN SUBCUT SCH (21:39)
[2016-07-06 02:28] LABS: CREATININE RESULT 1.05 mg/dL (0.52-1.25)
[2016-07-06] MEDS: VANCOMYCIN HCL 1,250 MG in DEXTROSE 5%-WATER 250 ML IV SCH ×2 (02:52→13:20)
[2016-07-06] MEDS: PIPERACILLIN SODIUM/TAZOBACTAM 3.375 GM in NORMAL SALINE 100 ML IV SCH ×4 (04:25→20:34)
[2016-07-06 06:56] LABS: ABSOLUTE BASOPHILS # (AUTO) 0.1 10^3/uL (0.0-0.2); ABSOLUTE EOSINOPHILS # (AUTO) 0.1 10^3/uL (0.0-0.6); ABSOLUTE LYMPHOCYTES (AUTO) 1.3 10^3/uL (0.5-4.7); ABSOLUTE NEUT (AUTO) 8.9 10^3/uL (1.7-8.2); BASOPHILS % (AUTO) 0.6 % (0-2); EOSINOPHILS % (AUTO) 1.2 % (0-6); HEMATOCRIT 27.7 % (37.9-51.0); HEMOGLOBIN 8.5 g/dL (13.5-17.0); HGB HCT DIFFERENCE -2.2; LYMPHOCYTES % (AUTO) 11.5 % (13-45); MEAN CORPUSCULAR HGB CONC 30.8 g/dL (32.0-36.0); MEAN CORPUSCULAR VOLUME 78 fl (80-97); MONOCYTES % (AUTO) 8.5 % (3-13); RED BLOOD COUNT 3.56 10^6/uL (4.35-5.55); RED CELL DISTRIBUTION WIDTH 14.7 % (11.5-14.0); SEGMENTED NEUTROPHILS % (AUTO) 78.2 % (42-78); WHITE BLOOD COUNT 11.4 10^3/uL (4.0-10.5)
[2016-07-06 07:15] LABS: ALANINE AMINOTRANSFERASE 78 U/L (21-72); ALBUMIN 2.6 g/dL (3.5-5.0); ALKALINE PHOSPHATASE 86 U/L (38-126); ANION GAP 10 (5-19); ASPARTATE AMINO TRANSFERASE 94 U/L (17-59); BILIRUBIN,TOTAL 0.9 mg/dL (0.2-1.3); BLOOD UREA NITROGEN 12 mg/dL (7-20); CARBON DIOXIDE 24 mmol/L (22-30); CHLORIDE 105 mmol/L (98-107); CREATINE KINASE 691 U/L (55-170); CREATININE RESULT 1.05 mg/dL (0.52-1.25); GLUCOSE 123 mg/dL (75-110); POTASSIUM 3.4 mmol/L (3.6-5.0); SODIUM 138.8 mmol/L (137-145); TOTAL PROTEIN 6.4 g/dL (6.3-8.2)
[2016-07-06] MEDS: GLIPIZIDE 10 MG TABLET PO SCH (07:52)
[2016-07-06] MEDS: FERROUS SULFATE 325 MG TABLET PO SCH ×2 (07:52→17:02)
[2016-07-06] MEDS: POTASSIUM CHLORIDE 10 MEQ TABLET.SA PO SCH (10:32)
[2016-07-06] MEDS: LANSOPRAZOLE 30 MG TAB.RAP.DR PO SCH (10:32)
[2016-07-06] MEDS: METOPROLOL TARTRATE 25 MG TABLET PO SCH ×2 (10:32→22:11)
[2016-07-06] MEDS: ISOSORBIDE MONONITRATE 30 MG TAB.ER.24H PO SCH (10:33)
[2016-07-06] MEDS: VALSARTAN 160 MG TABLET PO SCH (10:33)
[2016-07-06] MEDS: ASPIRIN 325 MG TABLET PO SCH (10:33)
[2016-07-06] MEDS: AMLODIPINE BESYLATE 10 MG TABLET PO SCH (10:33)
[2016-07-06] MEDS: TIOTROPIUM BROMIDE DPI 5 CAP/KIT (18 MCG/CAP) IH SCH (10:34)
[2016-07-06] MEDS: APIXABAN 5 MG TABLET PO SCH ×2 (10:34→22:11)
[2016-07-06] MEDS: BUMETANIDE 1 MG TABLET PO SCH (10:34)
[2016-07-06] MEDS ORDERED: NORMAL SALINE 1000 ML 1,000 ML IV PRN (11:42)
--- NOTE | 2016-07-06 11:57 | PDOC PROGRESS REPORT ---
Subjective Progress Note for:: 07/06/16 Subjective:: Patient reports that he is doing well. Denies any chills or fever. Denies any diarrhea. No chest pain or shortness of breath. No orthopnea nor paroxysmal nocturnal dyspnea. Hemoglobin and hematocrit dropped today. Potassium is low. Physical Exam Vital Signs: Temp Pulse Resp BP Pulse Ox 99.1 F 61 18 156/72 H 99 07/06/16 07:09 07/06/16 07:09 07/06/16 07:09 07/06/16 07:09 07/06/16 07:09 Intake & Output 07/05/16 07/06/16 07/07/16 06:59 06:59 06:59 Intake Total 3230 4386 Output Total 875 300 Balance 2355 4086 Weight 122.2 kg 122.3 kg General appearance: PRESENT: no acute distress, cooperative, morbidly obese Head exam: PRESENT: normocephalic Eye exam: PRESENT: EOMI Mouth exam: PRESENT: moist, neck supple Neck exam: ABSENT: JVD Respiratory exam: PRESENT: clear to auscultation cornell. ABSENT: rhonchi, wheezes Cardiovascular exam: PRESENT: irregular rhythm. ABSENT: gallop GI/Abdominal exam: PRESENT: normal bowel sounds, soft. ABSENT: distended, tenderness Extremities exam: PRESENT: +1 edema, other - Skin with lichenification bilateral lower extremity. Wound dressing on the right foot clean and dry. Neurological exam: PRESENT: alert, awake, oriented to situation Skin exam: PRESENT: dry, warm. ABSENT: cyanosis Results Laboratory Results: 07/06/16 06:05 07/06/16 06:05 07/06/16 07/06/16 07/06/16 01:52 06:05 06:05 WBC 11.4 H RBC 3.56 L Hgb 8.5 L Hct 27.7 L MCV 78 L MCH 24.0 L MCHC 30.8 L RDW 14.7 H Plt Count 270 Seg Neutrophils % 78.2 H Lymphocytes % 11.5 L Monocytes % 8.5 Eosinophils % 1.2 Basophils % 0.6 Absolute Neutrophils 8.9 H Absolute Lymphocytes 1.3 Absolute Monocytes 1.0 Absolute Eosinophils 0.1 Absolute Basophils 0.1 Sodium 138.8 Potassium 3.4 L Chloride 105 Carbon Dioxide 24 Anion Gap 10 BUN 12 Creatinine 1.05 1.05 Est GFR ( Amer) > 60 > 60 Est GFR (Non-Af Amer) > 60 > 60 Glucose 123 H Calcium 8.0 L Total Bilirubin 0.9 AST 94 H ALT 78 H Alkaline Phosphatase 86 Total Protein 6.4 Albumin 2.6 L 07/04/16 07/04/16 07/06/16 07:46 07:46 06:05 Creatine Kinase 2326 H 691 H NT-Pro-B Natriuret Pep 18244 H Impressions: Chest X-Ray 07/03/16 16:13 IMPRESSION: No significant interval change. Cardiomegaly with mild pulmonary vascular congestion. No acute consolidations or pleural effusions are identified. Foot X-Ray 07/03/16 16:14 IMPRESSION: EROSIVE CHANGES INVOLVING THE HEAD OF THE 5TH METATARSAL AND BASE OF THE PROXIMAL PHALANX OF THE 5TH TOE. FINDINGS ARE SUSPICIOUS FOR OSTEOMYELITIS, PROBABLY CHRONIC. GENERAL SOFT TISSUE SWELLING. NO ACUTE FINDINGS. Lower Extremity MRI 07/04/16 09:00 IMPRESSION: 5th metatarsal and 5th proximal phalanx osteomyelitis Extensive deep tissue cellulitis right foot without gross evidence of abscess Assessment & Plan - Diagnosis (1) Osteomyelitis of right foot Qualifiers: Chronicity: acute Qualified Code(s): M86.171 - Other acute osteomyelitis, right ankle and foot Is this a current diagnosis for this admission?: Yes (2) Cellulitis of foot, right Is this a current diagnosis for this admission?: Yes (3) Rhabdomyolysis Qualifiers: Rhabdomyolysis type: non-traumatic Qualified Code(s): M62.82 - Rhabdomyolysis Is this a current diagnosis for this admission?: Yes (4) Hypokalemia Is this a current diagnosis for this admission?: Yes (5) Coagulopathy Is this a current diagnosis for this admission?: Yes (6) Abnormal liver function tests Is this a current diagnosis for this admission?: Yes (7) Type 2 diabetes mellitus with hyperglycemia Qualifiers: Diabetes mellitus intermediate card tender insulin use: unspecified intermediate card tender insulin use status Qualified Code(s): E11.65 - Type 2 diabetes mellitus with hyperglycemia Is this a current diagnosis for this admission?: Yes (8) Atrial fibrillation Qualifiers: Atrial fibrillation type: paroxysmal Qualified Code(s): I48.0 - Paroxysmal atrial fibrillation Is this a current diagnosis for this admission?: Yes (9) GERD (gastroesophageal reflux disease) Qualifiers: Esophagitis presence: without esophagitis Qualified Code(s): K21.9 - Gastro-esophageal reflux disease without esophagitis Is this a current diagnosis for this admission?: Yes (10) Hyperlipidemia Qualifiers: Hyperlipidemia type: unspecified Qualified Code(s): E78.5 - Hyperlipidemia, unspecified Is this a current diagnosis for this admission?: Yes (11) Morbid obesity Qualifiers: Obesity type: unspecified obesity type Qualified Code(s): E66.01 - Morbid (severe) obesity due to excess calories Is this a current diagnosis for this admission?: Yes (12) Obstructive sleep apnea Is this a current diagnosis for this admission?: Yes (13) Vitamin D deficiency Is this a current diagnosis for this admission?: Yes (14) Anemia of chronic disease Is this a current diagnosis for this admission?: Yes (15) Gout Qualifiers: Gout site: unspecified site Gout etiology: unspecified cause Chronicity: unspecified Qualified Code(s): M10.9 - Gout, unspecified Is this a current diagnosis for this admission?: Yes (16) Hypertension Qualifiers: Hypertension type: essential hypertension Qualified Code(s): I10 - Essential (primary) hypertension Is this a current diagnosis for this admission?: Yes (17) Prostate cancer Is this a current diagnosis for this admission?: No (18) COPD (chronic obstructive pulmonary disease) Qualifiers: COPD type: unspecified COPD Qualified Code(s): J44.9 - Chronic obstructive pulmonary disease, unspecified Is this a current diagnosis for this admission?: Yes - Time Time Spent with patient: 25-34 minutes - Plan Summary Plan Summary: Continue antibiotics. Decrease intravenous fluids. Replace potassium and monitor electrolytes. Recheck hemoglobin and hematocrit. Possible amputation.
[2016-07-06] MEDS ORDERED: POTASSIUM CHLORIDE 10 MEQ TABLET.SA PO ONE (13:00)
--- NOTE | 2016-07-06 21:33 | PDOC PROGRESS REPORT ---
Subjective Progress Note for:: 07/06/16 Subjective:: Pt. has no chest pain today Physical Exam Vital Signs: Temp Pulse Resp BP Pulse Ox 98.1 F 65 18 155/75 H 98 07/06/16 15:59 07/06/16 19:00 07/06/16 15:59 07/06/16 15:59 07/06/16 15:59 Intake & Output 07/05/16 07/06/16 07/07/16 06:59 06:59 06:59 Intake Total 3230 4386 815 Output Total 875 300 325 Balance 2355 4086 490 Weight 122.2 kg 122.3 kg General appearance: PRESENT: no acute distress GI/Abdominal exam: PRESENT: normal bowel sounds, soft. ABSENT: distended, guarding, mass, organolmegaly, rebound, tenderness Results Laboratory Results: 07/06/16 06:05 07/06/16 06:05 07/06/16 07/06/16 07/06/16 01:52 06:05 06:05 WBC 11.4 H RBC 3.56 L Hgb 8.5 L Hct 27.7 L MCV 78 L MCH 24.0 L MCHC 30.8 L RDW 14.7 H Plt Count 270 Seg Neutrophils % 78.2 H Lymphocytes % 11.5 L Monocytes % 8.5 Eosinophils % 1.2 Basophils % 0.6 Absolute Neutrophils 8.9 H Absolute Lymphocytes 1.3 Absolute Monocytes 1.0 Absolute Eosinophils 0.1 Absolute Basophils 0.1 Sodium 138.8 Potassium 3.4 L Chloride 105 Carbon Dioxide 24 Anion Gap 10 BUN 12 Creatinine 1.05 1.05 Est GFR ( Amer) > 60 > 60 Est GFR (Non-Af Amer) > 60 > 60 Glucose 123 H Calcium 8.0 L Total Bilirubin 0.9 AST 94 H ALT 78 H Alkaline Phosphatase 86 Total Protein 6.4 Albumin 2.6 L 07/04/16 07/04/16 07/06/16 07:46 07:46 06:05 Creatine Kinase 2326 H 691 H NT-Pro-B Natriuret Pep 54353 H Impressions: Chest X-Ray 07/03/16 16:13 IMPRESSION: No significant interval change. Cardiomegaly with mild pulmonary vascular congestion. No acute consolidations or pleural effusions are identified. Foot X-Ray 07/03/16 16:14 IMPRESSION: EROSIVE CHANGES INVOLVING THE HEAD OF THE 5TH METATARSAL AND BASE OF THE PROXIMAL PHALANX OF THE 5TH TOE. FINDINGS ARE SUSPICIOUS FOR OSTEOMYELITIS, PROBABLY CHRONIC. GENERAL SOFT TISSUE SWELLING. NO ACUTE FINDINGS. Lower Extremity MRI 07/04/16 09:00 IMPRESSION: 5th metatarsal and 5th proximal phalanx osteomyelitis Extensive deep tissue cellulitis right foot without gross evidence of abscess Assessment & Plan - Plan Summary Plan Summary: Hida Scan ordered for to r/o GB dyskinesia. Pt. has intractable nausea,post-prandial bloating, gaseousness, and early satiety. These soft symtoms are most often associated with GB dysfunction.
[2016-07-06] MEDS: INSULIN GLARGINE,HUM.REC.ANLOG 300 UNIT/3 ML INSULN.PEN SUBCUT SCH (22:16)
[2016-07-07] MEDS: VANCOMYCIN HCL 1,250 MG in DEXTROSE 5%-WATER 250 ML IV SCH ×2 (01:05→14:47)
[2016-07-07] MEDS: PIPERACILLIN SODIUM/TAZOBACTAM 3.375 GM in NORMAL SALINE 100 ML IV SCH ×4 (03:00→20:27)
[2016-07-07] MEDS: CLONIDINE HCL 0.1 MG TABLET PO PRN ×2 (04:23→20:27)
[2016-07-07 06:40] LABS: ABSOLUTE BASOPHILS # (AUTO) 0.1 10^3/uL (0.0-0.2); ABSOLUTE EOSINOPHILS # (AUTO) 0.1 10^3/uL (0.0-0.6); ABSOLUTE MONOCYTES (AUTO) 0.9 10^3/uL (0.1-1.4); ABSOLUTE NEUT (AUTO) 7.5 10^3/uL (1.7-8.2); BASOPHILS % (AUTO) 0.6 % (0-2); EOSINOPHILS % (AUTO) 1.3 % (0-6); HEMATOCRIT 28.9 % (37.9-51.0); HEMOGLOBIN 9.1 g/dL (13.5-17.0); HGB HCT DIFFERENCE -1.6; LYMPHOCYTES % (AUTO) 10.9 % (13-45); MEAN CORPUSCULAR HEMOGLOBIN 24.4 pg (27.0-33.4); MEAN CORPUSCULAR HGB CONC 31.4 g/dL (32.0-36.0); MEAN CORPUSCULAR VOLUME 78 fl (80-97); RED BLOOD COUNT 3.73 10^6/uL (4.35-5.55); RED CELL DISTRIBUTION WIDTH 14.6 % (11.5-14.0); SEGMENTED NEUTROPHILS % (AUTO) 78.2 % (42-78); WHITE BLOOD COUNT 9.5 10^3/uL (4.0-10.5)
[2016-07-07 07:04] LABS: ALANINE AMINOTRANSFERASE 80 U/L (21-72); ALBUMIN 2.4 g/dL (3.5-5.0); ALKALINE PHOSPHATASE 95 U/L (38-126); ANION GAP 12 (5-19); ASPARTATE AMINO TRANSFERASE 93 U/L (17-59); BILIRUBIN,TOTAL 0.9 mg/dL (0.2-1.3); BLOOD UREA NITROGEN 11 mg/dL (7-20); CARBON DIOXIDE 23 mmol/L (22-30); CHLORIDE 104 mmol/L (98-107); CREATINE KINASE 502 U/L (55-170); CREATININE RESULT 1.23 mg/dL (0.52-1.25); GLUCOSE 92 mg/dL (75-110); POTASSIUM 3.8 mmol/L (3.6-5.0); SODIUM 139.1 mmol/L (137-145); TOTAL PROTEIN 6.6 g/dL (6.3-8.2)
[2016-07-07] MEDS: GLIPIZIDE 10 MG TABLET PO SCH (08:46)
[2016-07-07] MEDS: FERROUS SULFATE 325 MG TABLET PO SCH ×2 (08:46→17:27)
[2016-07-07] MEDS: VALSARTAN 160 MG TABLET PO SCH (10:52)
[2016-07-07] MEDS: TIOTROPIUM BROMIDE DPI 5 CAP/KIT (18 MCG/CAP) IH SCH (10:52)
[2016-07-07] MEDS: METOPROLOL TARTRATE 25 MG TABLET PO SCH ×2 (10:53→21:08)
[2016-07-07] MEDS: AMLODIPINE BESYLATE 10 MG TABLET PO SCH (10:53)
[2016-07-07] MEDS: LANSOPRAZOLE 30 MG TAB.RAP.DR PO SCH (10:53)
[2016-07-07] MEDS: BUMETANIDE 1 MG TABLET PO SCH (10:53)
[2016-07-07] MEDS: ASPIRIN 325 MG TABLET PO SCH (10:54)
[2016-07-07] MEDS: POTASSIUM CHLORIDE 10 MEQ TABLET.SA PO SCH (10:54)
[2016-07-07] MEDS: ISOSORBIDE MONONITRATE 30 MG TAB.ER.24H PO SCH (10:57)
[2016-07-07] MEDS: APIXABAN 5 MG TABLET PO SCH ×2 (10:57→21:07)
--- NOTE | 2016-07-07 10:59 | PDOC PROGRESS REPORT ---
Subjective Progress Note for:: 07/07/16 Subjective:: Patient reports that he fine. Denies any chills or fever. Denies any diarrhea at all. No chest pain or shortness of breath. No orthopnea nor paroxysmal nocturnal dyspnea. Physical Exam Vital Signs: Temp Pulse Resp BP Pulse Ox 98.0 F 61 20 167/62 H 99 07/07/16 07:23 07/07/16 07:23 07/07/16 07:23 07/07/16 07:23 07/07/16 07:23 Intake & Output 07/06/16 07/07/16 07/08/16 06:59 06:59 06:59 Intake Total 4386 1705 Output Total 300 615 Balance 4086 1090 Weight 122.3 kg 121.653 kg General appearance: PRESENT: no acute distress, cooperative, obese Head exam: PRESENT: normocephalic Eye exam: PRESENT: EOMI Mouth exam: PRESENT: moist, neck supple Neck exam: ABSENT: JVD Respiratory exam: PRESENT: unlabored. ABSENT: crackles, rhonchi, wheezes Cardiovascular exam: PRESENT: RRR. ABSENT: gallop GI/Abdominal exam: PRESENT: hypoactive bowel sounds, soft. ABSENT: distended, tenderness Extremities exam: PRESENT: +1 edema, other - Wound dressing on the foot is clean and dry Neurological exam: PRESENT: alert, awake, oriented to situation Results Laboratory Results: 07/07/16 05:43 07/07/16 05:43 07/07/16 07/07/16 05:43 05:43 WBC 9.5 RBC 3.73 L Hgb 9.1 L Hct 28.9 L MCV 78 L MCH 24.4 L MCHC 31.4 L RDW 14.6 H Plt Count 274 Seg Neutrophils % 78.2 H Lymphocytes % 10.9 L Monocytes % 9.0 Eosinophils % 1.3 Basophils % 0.6 Absolute Neutrophils 7.5 Absolute Lymphocytes 1.0 Absolute Monocytes 0.9 Absolute Eosinophils 0.1 Absolute Basophils 0.1 Sodium 139.1 Potassium 3.8 Chloride 104 Carbon Dioxide 23 Anion Gap 12 BUN 11 Creatinine 1.23 Est GFR ( Amer) > 60 Est GFR (Non-Af Amer) 57 L Glucose 92 Calcium 8.0 L Total Bilirubin 0.9 AST 93 H ALT 80 H Alkaline Phosphatase 95 Total Protein 6.6 Albumin 2.4 L 07/04/16 07/04/16 07/06/16 07:46 07:46 06:05 Creatine Kinase 2326 H 691 H NT-Pro-B Natriuret Pep 81973 H 07/07/16 05:43 Creatine Kinase 502 H NT-Pro-B Natriuret Pep Impressions: Chest X-Ray 07/03/16 16:13 IMPRESSION: No significant interval change. Cardiomegaly with mild pulmonary vascular congestion. No acute consolidations or pleural effusions are identified. Foot X-Ray 07/03/16 16:14 IMPRESSION: EROSIVE CHANGES INVOLVING THE HEAD OF THE 5TH METATARSAL AND BASE OF THE PROXIMAL PHALANX OF THE 5TH TOE. FINDINGS ARE SUSPICIOUS FOR OSTEOMYELITIS, PROBABLY CHRONIC. GENERAL SOFT TISSUE SWELLING. NO ACUTE FINDINGS. Lower Extremity MRI 07/04/16 09:00 IMPRESSION: 5th metatarsal and 5th proximal phalanx osteomyelitis Extensive deep tissue cellulitis right foot without gross evidence of abscess Assessment & Plan - Diagnosis (1) Osteomyelitis of right foot Qualifiers: Chronicity: acute Qualified Code(s): M86.171 - Other acute osteomyelitis, right ankle and foot Is this a current diagnosis for this admission?: Yes (2) Cellulitis of foot, right Is this a current diagnosis for this admission?: Yes (3) Rhabdomyolysis Qualifiers: Rhabdomyolysis type: non-traumatic Qualified Code(s): M62.82 - Rhabdomyolysis Is this a current diagnosis for this admission?: Yes (4) Hypokalemia Is this a current diagnosis for this admission?: Yes (5) Coagulopathy Is this a current diagnosis for this admission?: Yes (6) Abnormal liver function tests Is this a current diagnosis for this admission?: Yes (7) Type 2 diabetes mellitus with hyperglycemia Qualifiers: Diabetes mellitus terminal makeup operator insulin use: unspecified fci insulin use status Qualified Code(s): E11.65 - Type 2 diabetes mellitus with hyperglycemia Is this a current diagnosis for this admission?: Yes (8) Atrial fibrillation Qualifiers: Atrial fibrillation type: paroxysmal Qualified Code(s): I48.0 - Paroxysmal atrial fibrillation Is this a current diagnosis for this admission?: Yes (9) GERD (gastroesophageal reflux disease) Qualifiers: Esophagitis presence: without esophagitis Qualified Code(s): K21.9 - Gastro-esophageal reflux disease without esophagitis Is this a current diagnosis for this admission?: Yes (10) Hyperlipidemia Qualifiers: Hyperlipidemia type: unspecified Qualified Code(s): E78.5 - Hyperlipidemia, unspecified Is this a current diagnosis for this admission?: Yes (11) Morbid obesity Qualifiers: Obesity type: unspecified obesity type Qualified Code(s): E66.01 - Morbid (severe) obesity due to excess calories Is this a current diagnosis for this admission?: Yes (12) Obstructive sleep apnea Is this a current diagnosis for this admission?: Yes (13) Vitamin D deficiency Is this a current diagnosis for this admission?: Yes (14) Anemia of chronic disease Is this a current diagnosis for this admission?: Yes (15) Gout Qualifiers: Gout site: unspecified site Gout etiology: unspecified cause Chronicity: unspecified Qualified Code(s): M10.9 - Gout, unspecified Is this a current diagnosis for this admission?: Yes (16) Hypertension Qualifiers: Hypertension type: essential hypertension Qualified Code(s): I10 - Essential (primary) hypertension Is this a current diagnosis for this admission?: Yes (17) Prostate cancer Is this a current diagnosis for this admission?: No (18) COPD (chronic obstructive pulmonary disease) Qualifiers: COPD type: unspecified COPD Qualified Code(s): J44.9 - Chronic obstructive pulmonary disease, unspecified Is this a current diagnosis for this admission?: Yes - Time Time Spent with patient: Less than 15 minutes - Plan Summary Plan Summary: Continue current antibiotics for now. Blood culture likely a contamination. Will keep the vancomycin pending identity of the gram-positive organism in the wound. Awaiting decision by surgery for amputation. Continue other medications and supportive care. Continue hydration gently and recheck liver functions and repeat CPK.
[2016-07-07] MEDS: NORMAL SALINE 1000 ML 1,000 ML IV PRN (19:30)
[2016-07-07] MEDS: INSULIN GLARGINE,HUM.REC.ANLOG 300 UNIT/3 ML INSULN.PEN SUBCUT SCH (21:41)
[2016-07-08] MEDS: VANCOMYCIN HCL 1,250 MG in DEXTROSE 5%-WATER 250 ML IV SCH ×2 (01:11→15:28)
[2016-07-08] MEDS: PIPERACILLIN SODIUM/TAZOBACTAM 3.375 GM in NORMAL SALINE 100 ML IV SCH ×4 (03:16→20:45)
[2016-07-08] MEDS: CLONIDINE HCL 0.1 MG TABLET PO PRN (05:50)
[2016-07-08 06:02] LABS: ABSOLUTE BASOPHILS # (AUTO) 0.1 10^3/uL (0.0-0.2); ABSOLUTE EOSINOPHILS # (AUTO) 0.1 10^3/uL (0.0-0.6); ABSOLUTE LYMPHOCYTES (AUTO) 0.8 10^3/uL (0.5-4.7); ABSOLUTE MONOCYTES (AUTO) 0.7 10^3/uL (0.1-1.4); ABSOLUTE NEUT (AUTO) 6.2 10^3/uL (1.7-8.2); BASOPHILS % (AUTO) 0.9 % (0-2); EOSINOPHILS % (AUTO) 1.2 % (0-6); HEMOGLOBIN 9.3 g/dL (13.5-17.0); HGB HCT DIFFERENCE -2.1; LYMPHOCYTES % (AUTO) 10.6 % (13-45); MEAN CORPUSCULAR HEMOGLOBIN 24.4 pg (27.0-33.4); MEAN CORPUSCULAR VOLUME 79 fl (80-97); MONOCYTES % (AUTO) 9.3 % (3-13); RED BLOOD COUNT 3.81 10^6/uL (4.35-5.55); RED CELL DISTRIBUTION WIDTH 14.8 % (11.5-14.0); WHITE BLOOD COUNT 7.9 10^3/uL (4.0-10.5)
[2016-07-08 06:26] LABS: ALBUMIN 2.5 g/dL (3.5-5.0); GLUCOSE 109 mg/dL (75-110); POTASSIUM 3.8 mmol/L (3.6-5.0); TOTAL PROTEIN 6.6 g/dL (6.3-8.2)
[2016-07-08 06:28] LABS: ALANINE AMINOTRANSFERASE 71 U/L (21-72); ALKALINE PHOSPHATASE 110 U/L (38-126); ANION GAP 11 (5-19); ASPARTATE AMINO TRANSFERASE 75 U/L (17-59); BLOOD UREA NITROGEN 11 mg/dL (7-20); CALCIUM 8.1 mg/dL (8.4-10.2); CARBON DIOXIDE 26 mmol/L (22-30); CHLORIDE 103 mmol/L (98-107); CREATINE KINASE 355 U/L (55-170); CREATININE RESULT 1.33 mg/dL (0.52-1.25); SODIUM 139.6 mmol/L (137-145)
[2016-07-08] MEDS: FERROUS SULFATE 325 MG TABLET PO SCH ×2 (09:37→15:28)
[2016-07-08] MEDS: BUMETANIDE 1 MG TABLET PO SCH (09:37)
[2016-07-08] MEDS: GLIPIZIDE 10 MG TABLET PO SCH (09:37)
[2016-07-08] MEDS: VALSARTAN 160 MG TABLET PO SCH (09:37)
[2016-07-08] MEDS: AMLODIPINE BESYLATE 10 MG TABLET PO SCH (09:38)
[2016-07-08] MEDS: POTASSIUM CHLORIDE 10 MEQ TABLET.SA PO SCH (09:38)
[2016-07-08] MEDS: ERGOCALCIFEROL (VITAMIN D2) 50000 UNIT (1.25 MG) CAPSULE PO SCH (09:38)
[2016-07-08] MEDS: METOPROLOL TARTRATE 25 MG TABLET PO SCH ×2 (09:38→22:28)
[2016-07-08] MEDS: ISOSORBIDE MONONITRATE 30 MG TAB.ER.24H PO SCH (09:38)
[2016-07-08] MEDS: LANSOPRAZOLE 30 MG TAB.RAP.DR PO SCH (09:38)
[2016-07-08] MEDS: APIXABAN 5 MG TABLET PO SCH ×2 (09:38→22:23)
[2016-07-08] MEDS: TIOTROPIUM BROMIDE DPI 5 CAP/KIT (18 MCG/CAP) IH SCH (12:18)
[2016-07-08] MEDS: HYDRALAZINE HCL 25 MG TABLET PO SCH ×2 (15:28→22:27)
--- NOTE | 2016-07-08 17:28 | PDOC PROGRESS REPORT ---
Subjective Progress Note for:: 07/15/16 Subjective:: He had debridement of right foot ulcer on 07/04/2016. He is feeling much better and his BP is still uncontrolled. We will restart his Valsartan 320 mg qd and Metoprolol 25 mg BID; add Clonidine 0.1mg q6h prn. F/u PT/OT consult. F/u Gen. surgery for wound mgt. We will add Hydralazine 25 mg q8h PO to help optimize BP control. The surgeons plan possible right BKA ; f/u with surgeons for that. Physical Exam Vital Signs: Temp Pulse Resp BP Pulse Ox 97.7 F 81 20 162/74 H 97 07/08/16 16:07 07/08/16 16:07 07/08/16 16:07 07/08/16 16:07 07/08/16 16:07 Intake & Output 07/07/16 07/08/16 07/09/16 06:59 06:59 06:59 Intake Total 1705 1464 941 Output Total 615 350 Balance 1090 1114 941 Weight 121.653 kg 122.8 kg General appearance: PRESENT: no acute distress, morbidly obese, well-developed, well-nourished Head exam: PRESENT: atraumatic, normocephalic Eye exam: PRESENT: EOMI, PERRLA Ear exam: PRESENT: normal external ear exam, TM's normal bilaterally Mouth exam: PRESENT: moist, neck supple, tongue midline Neck exam: PRESENT: full ROM Respiratory exam: PRESENT: decreased breath sounds Cardiovascular exam: PRESENT: irregular rhythm, +S1, +S2 Pulses: PRESENT: +1 pedal pulses bilateral GI/Abdominal exam: PRESENT: normal bowel sounds, soft Musculoskeletal exam: PRESENT: ambulatory Neurological exam: PRESENT: alert, awake, oriented to person, oriented to place , oriented to time, CN II-XII grossly intact Psychiatric exam: PRESENT: normal mood Results Laboratory Results: 07/08/16 05:43 07/08/16 05:43 07/08/16 07/08/16 05:43 05:43 WBC 7.9 RBC 3.81 L Hgb 9.3 L Hct 30.0 L MCV 79 L MCH 24.4 L MCHC 31.0 L RDW 14.8 H Plt Count 272 Seg Neutrophils % 78.0 Lymphocytes % 10.6 L Monocytes % 9.3 Eosinophils % 1.2 Basophils % 0.9 Absolute Neutrophils 6.2 Absolute Lymphocytes 0.8 Absolute Monocytes 0.7 Absolute Eosinophils 0.1 Absolute Basophils 0.1 Sodium 139.6 Potassium 3.8 Chloride 103 Carbon Dioxide 26 Anion Gap 11 BUN 11 Creatinine 1.33 H Est GFR ( Amer) > 60 Est GFR (Non-Af Amer) 52 L Glucose 109 Calcium 8.1 L Total Bilirubin 1.0 AST 75 H ALT 71 Alkaline Phosphatase 110 Total Protein 6.6 Albumin 2.5 L 07/04/16 08:00 Foot - Right Gram Stain - Final 07/04/16 08:00 Foot - Right Wound Culture - Final Proteus Vulgaris Morganella Morganii Mrsa (Meth Resis Staph Aureus) Enterococcus Faecalis(Group D) No Anaerobic Organisms 07/04/16 07/04/16 07/06/16 07:46 07:46 06:05 Creatine Kinase 2326 H 691 H NT-Pro-B Natriuret Pep 05732 H 07/07/16 07/08/16 05:43 05:43 Creatine Kinase 502 H 355 H NT-Pro-B Natriuret Pep Impressions: Chest X-Ray 07/03/16 16:13 IMPRESSION: No significant interval change. Cardiomegaly with mild pulmonary vascular congestion. No acute consolidations or pleural effusions are identified. Foot X-Ray 07/03/16 16:14 IMPRESSION: EROSIVE CHANGES INVOLVING THE HEAD OF THE 5TH METATARSAL AND BASE OF THE PROXIMAL PHALANX OF THE 5TH TOE. FINDINGS ARE SUSPICIOUS FOR OSTEOMYELITIS, PROBABLY CHRONIC. GENERAL SOFT TISSUE SWELLING. NO ACUTE FINDINGS. Lower Extremity MRI 07/04/16 09:00 IMPRESSION: 5th metatarsal and 5th proximal phalanx osteomyelitis Extensive deep tissue cellulitis right foot without gross evidence of abscess Assessment & Plan - Diagnosis (1) Osteomyelitis of right foot Qualifiers: Chronicity: acute Qualified Code(s): M86.171 - Other acute osteomyelitis, right ankle and foot Is this a current diagnosis for this admission?: YesPlan: Ct with Zosyn 3.375 G IV q6h; IV Vancomycin as per OM protocol; Percocet 5/325 1 Q^H prn; F/u blood and wound cultures; F/u general surgeon for wound care post debridement. (2) Hypertensive urgency Is this a current diagnosis for this admission?: YesPlan: Ct with Amlodipine 10 mg daily po; Diovan 320 mg daily po; Metoprolol 25 mg BID PO; Clonidine 0.1mg q6h prn po; we will add Hydralazine 25 mg q8h PO to optimize BP control. Ct with 2 G sodium diet. (3) Diabetic ketoacidosis Qualifiers: Diabetes mellitus type: type 2 Diabetes mellitus complication detail: without coma Qualified Code(s): E13.10 - Other specified diabetes mellitus with ketoacidosis without coma Is this a current diagnosis for this admission?: YesPlan: Ct with IV fluid normal saline at 125 cc/hr; Slidding scale with humalog insulin OM protocol; Lantus insulin 40 iu qhs sucut; 1800 calorie ADA diet. (4) Rhabdomyolysis Qualifiers: Rhabdomyolysis type: non-traumatic Qualified Code(s): M62.82 - Rhabdomyolysis Is this a current diagnosis for this admission?: YesPlan: Ct with IV fluids normal saline at 125cc/hour; Monitor chemistries and CK daily ; Strict input/out put chart. (5) CHF exacerbation Qualifiers: Congestive heart failure type: unspecified congestive heart failure type Qualified Code(s): I50.9 - Heart failure, unspecified Is this a current diagnosis for this admission?: YesPlan: Ct with Bumetanide 1 mg daily po; KCL 10 mEQ daily po; Isosorbide mononitrate 30 mg daily po; serial EKG/cardiac enzymes; Daily wt; strict input/out put chart ; monitor chemistries daily. (6) Atrial fibrillation Qualifiers: Atrial fibrillation type: paroxysmal Qualified Code(s): I48.0 - Paroxysmal atrial fibrillation Is this a current diagnosis for this admission?: YesPlan: Ct with Eliquis 5 mg BID po; Metoprolol 25 mg BID po. (7) COPD (chronic obstructive pulmonary disease) Qualifiers: COPD type: unspecified COPD Qualified Code(s): J44.9 - Chronic obstructive pulmonary disease, unspecified Is this a current diagnosis for this admission?: YesPlan: Ct with Duonebs q6h pr; Spiriva 18 mcg daily; Oxygen by N/C 2 L/min. (8) Hypertension Qualifiers: Hypertension type: essential hypertension Qualified Code(s): I10 - Essential (primary) hypertension Is this a current diagnosis for this admission?: YesPlan: Ct with Amlodipine 10 mg daily po; Metoprolol 25 mg BID po; 2g sodium diet. Restart Valsartan 320 mg daily po; add clonidine 0.1mg q6h prn po for SBP>150 or DBP >100. (9) Hyperlipidemia Qualifiers: Hyperlipidemia type: unspecified Qualified Code(s): E78.5 - Hyperlipidemia, unspecified Is this a current diagnosis for this admission?: YesPlan: Hold Atorvastatin due to rhabdomyolysis; ct with 200 mg cholesterol diet. (10) Chronic kidney disease (CKD) Is this a current diagnosis for this admission?: YesPlan: Avoid nephrotoxics; daily chemistries; daily wt; strict input/out put chart. (11) Obstructive sleep apnea Is this a current diagnosis for this admission?: YesPlan: Ct with CPAP at night. (12) Iron deficiency anemia Qualifiers: Iron deficiency anemia type: unspecified iron deficiency Qualified Code(s): D50.9 - Iron deficiency anemia, unspecified Is this a current diagnosis for this admission?: YesPlan: Ct with Ferrous sulfate 325 mg BID po; monitor CBC daily. (13) Vitamin D deficiency Is this a current diagnosis for this admission?: YesPlan: Ct with Vitamin D 15674nc weekly. (14) GERD (gastroesophageal reflux disease) Qualifiers: Esophagitis presence: without esophagitis Qualified Code(s): K21.9 - Gastro-esophageal reflux disease without esophagitis Is this a current diagnosis for this admission?: YesPlan: Ct with Prevacid 30 mg daily po. (15) Prostate cancer Is this a current diagnosis for this admission?: NoPlan: Ct with Alfuzosin 10 mg qd po. (16) Morbid obesity Qualifiers: Obesity type: unspecified obesity type Qualified Code(s): E66.01 - Morbid (severe) obesity due to excess calories Is this a current diagnosis for this admission?: YesPlan: Cty with diet/exercise counseling. (17) DVT prophylaxis Is this a current diagnosis for this admission?: YesPlan: Ct with Eliquis 5 mg BID po; SCD.
--- NOTE | 2016-07-08 17:41 | PDOC PROGRESS REPORT ---
Subjective Progress Note for:: 07/08/16 Subjective:: No complaints Physical Exam Vital Signs: Temp Pulse Resp BP Pulse Ox 97.7 F 81 20 162/74 H 97 07/08/16 16:07 07/08/16 16:07 07/08/16 16:07 07/08/16 16:07 07/08/16 16:07 Intake & Output 07/07/16 07/08/16 07/09/16 06:59 06:59 06:59 Intake Total 1705 1464 941 Output Total 615 350 Balance 1090 1114 941 Weight 121.653 kg 122.8 kg General appearance: PRESENT: no acute distress Extremities exam: PRESENT: other - Unable to palpate pulses in the knee or foot ; there is marked venous stasis changes, with sloughing exfoliating skin; edema reasonably controlled at the foot and ankle. Open wound plantar fifth metatarsal region. Lateral fifth metatarsal region with second wound. Chronic overlying nonviable tissue 2 x 3 cm. There is purulent drainage coming from the lateral and plantar sides of the right foot. Results Laboratory Results: 07/08/16 05:43 07/08/16 05:43 07/08/16 07/08/16 05:43 05:43 WBC 7.9 RBC 3.81 L Hgb 9.3 L Hct 30.0 L MCV 79 L MCH 24.4 L MCHC 31.0 L RDW 14.8 H Plt Count 272 Seg Neutrophils % 78.0 Lymphocytes % 10.6 L Monocytes % 9.3 Eosinophils % 1.2 Basophils % 0.9 Absolute Neutrophils 6.2 Absolute Lymphocytes 0.8 Absolute Monocytes 0.7 Absolute Eosinophils 0.1 Absolute Basophils 0.1 Sodium 139.6 Potassium 3.8 Chloride 103 Carbon Dioxide 26 Anion Gap 11 BUN 11 Creatinine 1.33 H Est GFR ( Amer) > 60 Est GFR (Non-Af Amer) 52 L Glucose 109 Calcium 8.1 L Total Bilirubin 1.0 AST 75 H ALT 71 Alkaline Phosphatase 110 Total Protein 6.6 Albumin 2.5 L 07/04/16 08:00 Foot - Right Gram Stain - Final 07/04/16 08:00 Foot - Right Wound Culture - Final Proteus Vulgaris Morganella Morganii Mrsa (Meth Resis Staph Aureus) Enterococcus Faecalis(Group D) No Anaerobic Organisms 07/04/16 07/04/16 07/06/16 07:46 07:46 06:05 Creatine Kinase 2326 H 691 H NT-Pro-B Natriuret Pep 74051 H 07/07/16 07/08/16 05:43 05:43 Creatine Kinase 502 H 355 H NT-Pro-B Natriuret Pep Impressions: Chest X-Ray 07/03/16 16:13 IMPRESSION: No significant interval change. Cardiomegaly with mild pulmonary vascular congestion. No acute consolidations or pleural effusions are identified. Foot X-Ray 07/03/16 16:14 IMPRESSION: EROSIVE CHANGES INVOLVING THE HEAD OF THE 5TH METATARSAL AND BASE OF THE PROXIMAL PHALANX OF THE 5TH TOE. FINDINGS ARE SUSPICIOUS FOR OSTEOMYELITIS, PROBABLY CHRONIC. GENERAL SOFT TISSUE SWELLING. NO ACUTE FINDINGS. Lower Extremity MRI 07/04/16 09:00 IMPRESSION: 5th metatarsal and 5th proximal phalanx osteomyelitis Extensive deep tissue cellulitis right foot without gross evidence of abscess Assessment & Plan - Diagnosis (1) Cellulitis of foot, right Is this a current diagnosis for this admission?: YesPlan: 1. The right foot has purulent discharge emanating from multiple surfaces. Right foot needs operative debridement. We'll keep the patient nothing by mouth after midnight, plan for right foot debridement, likely right fifth toe amputation including the metatarsal head. 2. Will pursue results of arterial duplex study and determine whether patient needs angiographic evaluation and/or angioplasty, versus eventual amputation. - Time Time Spent with patient: 15-24 minutes
[2016-07-08] MEDS: INSULIN GLARGINE,HUM.REC.ANLOG 300 UNIT/3 ML INSULN.PEN SUBCUT SCH (22:24)
[2016-07-08] MEDS: INSULIN LISPRO 100 UNIT/ML 3 ML VIAL SUBCUT PRN (22:27)
[2016-07-09] MEDS: CLONIDINE HCL 0.1 MG TABLET PO PRN ×2 (00:42→14:21)
[2016-07-09] MEDS: VANCOMYCIN HCL 1,250 MG in DEXTROSE 5%-WATER 250 ML IV SCH ×2 (01:24→14:13)
[2016-07-09] MEDS: PIPERACILLIN SODIUM/TAZOBACTAM 3.375 GM in NORMAL SALINE 100 ML IV SCH ×4 (03:08→22:46)
[2016-07-09] MEDS: HYDRALAZINE HCL 25 MG TABLET PO SCH ×3 (05:12→22:46)
[2016-07-09 06:37] LABS: ABSOLUTE EOSINOPHILS # (AUTO) 0.1 10^3/uL (0.0-0.6); ABSOLUTE LYMPHOCYTES (AUTO) 0.9 10^3/uL (0.5-4.7); ABSOLUTE MONOCYTES (AUTO) 0.9 10^3/uL (0.1-1.4); BASOPHILS % (AUTO) 0.5 % (0-2); EOSINOPHILS % (AUTO) 0.7 % (0-6); HEMATOCRIT 29.4 % (37.9-51.0); HEMOGLOBIN 9.2 g/dL (13.5-17.0); HGB HCT DIFFERENCE -1.8; LYMPHOCYTES % (AUTO) 11.3 % (13-45); MEAN CORPUSCULAR HEMOGLOBIN 24.2 pg (27.0-33.4); MEAN CORPUSCULAR HGB CONC 31.2 g/dL (32.0-36.0); MEAN CORPUSCULAR VOLUME 78 fl (80-97); MONOCYTES % (AUTO) 11.7 % (3-13); RED BLOOD COUNT 3.79 10^6/uL (4.35-5.55); RED CELL DISTRIBUTION WIDTH 15.1 % (11.5-14.0); SEGMENTED NEUTROPHILS % (AUTO) 75.8 % (42-78); WHITE BLOOD COUNT 7.9 10^3/uL (4.0-10.5)
[2016-07-09 06:56] LABS: ALANINE AMINOTRANSFERASE 65 U/L (21-72); ALBUMIN 2.3 g/dL (3.5-5.0); ALKALINE PHOSPHATASE 115 U/L (38-126); ANION GAP 13 (5-19); ASPARTATE AMINO TRANSFERASE 59 U/L (17-59); BILIRUBIN,TOTAL 0.9 mg/dL (0.2-1.3); BLOOD UREA NITROGEN 11 mg/dL (7-20); CALCIUM 7.9 mg/dL (8.4-10.2); CARBON DIOXIDE 22 mmol/L (22-30); CHLORIDE 102 mmol/L (98-107); CREATININE RESULT 1.29 mg/dL (0.52-1.25); GLUCOSE 193 mg/dL (75-110); POTASSIUM 3.6 mmol/L (3.6-5.0); SODIUM 137.4 mmol/L (137-145); TOTAL PROTEIN 6.4 g/dL (6.3-8.2)
--- NOTE | 2016-07-09 09:51 | PDOC PROGRESS REPORT ---
Subjective Progress Note for:: 07/09/16 Subjective:: Feels well. No complaints. Physical Exam Vital Signs: Temp Pulse Resp BP Pulse Ox 98.7 F 62 19 180/77 H 97 07/09/16 07:19 07/09/16 07:19 07/09/16 07:19 07/09/16 07:19 07/09/16 07:19 Intake & Output 07/08/16 07/09/16 07/10/16 06:59 06:59 06:59 Intake Total 1464 2447 Output Total 350 Balance 1114 2447 Weight 122.8 kg 124.7 kg General appearance: PRESENT: no acute distress Respiratory exam: PRESENT: clear to auscultation cornell Cardiovascular exam: PRESENT: irregular rhythm GI/Abdominal exam: PRESENT: other - Soft, nondistended nontender to palpation Extremities exam: PRESENT: other - Right mid lateral foot at the plantar surface with wound defect with necrotic tissue laterally with the small amount of purulent drainage at the base of the wound. Results Laboratory Results: 07/09/16 06:24 07/09/16 06:24 07/09/16 07/09/16 06:24 06:24 WBC 7.9 RBC 3.79 L Hgb 9.2 L Hct 29.4 L MCV 78 L MCH 24.2 L MCHC 31.2 L RDW 15.1 H Plt Count 260 Seg Neutrophils % 75.8 Lymphocytes % 11.3 L Monocytes % 11.7 Eosinophils % 0.7 Basophils % 0.5 Absolute Neutrophils 6.0 Absolute Lymphocytes 0.9 Absolute Monocytes 0.9 Absolute Eosinophils 0.1 Absolute Basophils 0.0 Sodium 137.4 Potassium 3.6 Chloride 102 Carbon Dioxide 22 Anion Gap 13 BUN 11 Creatinine 1.29 H Est GFR ( Amer) > 60 Est GFR (Non-Af Amer) 54 L Glucose 193 H Calcium 7.9 L Total Bilirubin 0.9 AST 59 ALT 65 Alkaline Phosphatase 115 Total Protein 6.4 Albumin 2.3 L 07/04/16 08:00 Foot - Right Gram Stain - Final 07/04/16 08:00 Foot - Right Wound Culture - Final Proteus Vulgaris Morganella Morganii Mrsa (Meth Resis Staph Aureus) Enterococcus Faecalis(Group D) No Anaerobic Organisms 07/04/16 07/04/16 07/06/16 07:46 07:46 06:05 Creatine Kinase 2326 H 691 H NT-Pro-B Natriuret Pep 18351 H 07/07/16 07/08/16 05:43 05:43 Creatine Kinase 502 H 355 H NT-Pro-B Natriuret Pep Impressions: Chest X-Ray 07/03/16 16:13 IMPRESSION: No significant interval change. Cardiomegaly with mild pulmonary vascular congestion. No acute consolidations or pleural effusions are identified. Foot X-Ray 07/03/16 16:14 IMPRESSION: EROSIVE CHANGES INVOLVING THE HEAD OF THE 5TH METATARSAL AND BASE OF THE PROXIMAL PHALANX OF THE 5TH TOE. FINDINGS ARE SUSPICIOUS FOR OSTEOMYELITIS, PROBABLY CHRONIC. GENERAL SOFT TISSUE SWELLING. NO ACUTE FINDINGS. Lower Extremity MRI 07/04/16 09:00 IMPRESSION: 5th metatarsal and 5th proximal phalanx osteomyelitis Extensive deep tissue cellulitis right foot without gross evidence of abscess Assessment & Plan - Diagnosis (1) Osteomyelitis of right foot Qualifiers: Chronicity: acute Qualified Code(s): M86.171 - Other acute osteomyelitis, right ankle and foot Is this a current diagnosis for this admission?: Yes (2) Osteomyelitis Qualifiers: Osteomyelitis location: foot Laterality: right Chronicity: acute Qualified Code(s): M86.171 - Other acute osteomyelitis, right ankle and foot Is this a current diagnosis for this admission?: YesPlan: Osteomyelitis involving the fifth metatarsal head and the base of the fifth phalanx. Diabetic foot infection not sufficiently debrided. Plan excisional debridement today. We'll plan fifth toe amputation and will plan partial excision of the fifth metatarsal. I have discussed with the patient the risk and benefits of the procedure including risk of worsening infection and possible loss of limb, risk of bleeding, risk of cardiopulmonary complications. Patient understands and agrees to proceed.
[2016-07-09] MEDS ORDERED: LIDOCAINE 2% INJ-PF (20 MG/ML) 10 ML AMPUL ONE (10:20)
[2016-07-09] MEDS: POTASSIUM CHLORIDE 10 MEQ TABLET.SA PO SCH (10:26)
[2016-07-09] MEDS: METOPROLOL TARTRATE 25 MG TABLET PO SCH ×2 (10:26→22:47)
[2016-07-09] MEDS: ISOSORBIDE MONONITRATE 30 MG TAB.ER.24H PO SCH (10:26)
[2016-07-09] MEDS: LANSOPRAZOLE 30 MG TAB.RAP.DR PO SCH (10:26)
[2016-07-09] MEDS: FERROUS SULFATE 325 MG TABLET PO SCH ×2 (10:26→20:02)
[2016-07-09] MEDS: VALSARTAN 160 MG TABLET PO SCH (10:26)
[2016-07-09] MEDS: AMLODIPINE BESYLATE 10 MG TABLET PO SCH (10:26)
[2016-07-09] MEDS: GLIPIZIDE 10 MG TABLET PO SCH (10:27)
[2016-07-09] MEDS: APIXABAN 5 MG TABLET PO SCH ×2 (10:42→22:47)
[2016-07-09] MEDS: ASPIRIN 325 MG TABLET PO SCH (10:42)
[2016-07-09] MEDS: BUMETANIDE 1 MG TABLET PO SCH (10:46)
[2016-07-09] MEDS: TIOTROPIUM BROMIDE DPI 5 CAP/KIT (18 MCG/CAP) IH SCH (10:46)
--- NOTE | 2016-07-09 17:07 | PDOC PROGRESS REPORT ---
Subjective Progress Note for:: 07/09/16 Subjective:: He had debridement of right foot ulcer on 07/04/2016. He is feeling much better and his BP is still uncontrolled. We will restart his Valsartan 320 mg qd and Metoprolol 25 mg BID; add Clonidine 0.1mg q6h prn. F/u PT/OT consult. F/u Gen. surgery for wound mgt. We will add Hydralazine 25 mg q8h PO to help optimize BP control. He is for repeat debridement and amputation of right 5th toe and partial excision of 5th metatarsal today. Physical Exam Vital Signs: Temp Pulse Resp BP Pulse Ox 98.2 F 40 L 19 183/64 H 93 07/09/16 15:05 07/09/16 15:05 07/09/16 15:05 07/09/16 15:05 07/09/16 15:05 Intake & Output 07/08/16 07/09/16 07/10/16 06:59 06:59 06:59 Intake Total 1464 2447 0 Output Total 350 Balance 1114 2447 0 Weight 122.8 kg 124.7 kg General appearance: PRESENT: no acute distress, morbidly obese, well-developed, well-nourished Head exam: PRESENT: atraumatic, normocephalic Eye exam: PRESENT: EOMI, PERRLA Ear exam: PRESENT: normal external ear exam Mouth exam: PRESENT: moist, neck supple Respiratory exam: PRESENT: decreased breath sounds, symmetrical Cardiovascular exam: PRESENT: irregular rhythm, +S1, +S2 GI/Abdominal exam: PRESENT: normal bowel sounds, soft Neurological exam: PRESENT: alert, awake, oriented to person, oriented to place , oriented to time, CN II-XII grossly intact Psychiatric exam: PRESENT: normal mood Results Laboratory Results: 07/09/16 06:24 07/09/16 06:24 07/09/16 07/09/16 06:24 06:24 WBC 7.9 RBC 3.79 L Hgb 9.2 L Hct 29.4 L MCV 78 L MCH 24.2 L MCHC 31.2 L RDW 15.1 H Plt Count 260 Seg Neutrophils % 75.8 Lymphocytes % 11.3 L Monocytes % 11.7 Eosinophils % 0.7 Basophils % 0.5 Absolute Neutrophils 6.0 Absolute Lymphocytes 0.9 Absolute Monocytes 0.9 Absolute Eosinophils 0.1 Absolute Basophils 0.0 Sodium 137.4 Potassium 3.6 Chloride 102 Carbon Dioxide 22 Anion Gap 13 BUN 11 Creatinine 1.29 H Est GFR ( Amer) > 60 Est GFR (Non-Af Amer) 54 L Glucose 193 H Calcium 7.9 L Total Bilirubin 0.9 AST 59 ALT 65 Alkaline Phosphatase 115 Total Protein 6.4 Albumin 2.3 L 07/04/16 07/04/16 07/06/16 07:46 07:46 06:05 Creatine Kinase 2326 H 691 H NT-Pro-B Natriuret Pep 89698 H 07/07/16 07/08/16 05:43 05:43 Creatine Kinase 502 H 355 H NT-Pro-B Natriuret Pep Impressions: Chest X-Ray 07/03/16 16:13 IMPRESSION: No significant interval change. Cardiomegaly with mild pulmonary vascular congestion. No acute consolidations or pleural effusions are identified. Foot X-Ray 07/03/16 16:14 IMPRESSION: EROSIVE CHANGES INVOLVING THE HEAD OF THE 5TH METATARSAL AND BASE OF THE PROXIMAL PHALANX OF THE 5TH TOE. FINDINGS ARE SUSPICIOUS FOR OSTEOMYELITIS, PROBABLY CHRONIC. GENERAL SOFT TISSUE SWELLING. NO ACUTE FINDINGS. Lower Extremity MRI 07/04/16 09:00 IMPRESSION: 5th metatarsal and 5th proximal phalanx osteomyelitis Extensive deep tissue cellulitis right foot without gross evidence of abscess Assessment & Plan - Diagnosis (1) Osteomyelitis of right foot Qualifiers: Chronicity: acute Qualified Code(s): M86.171 - Other acute osteomyelitis, right ankle and foot Is this a current diagnosis for this admission?: YesPlan: Ct with Zosyn 3.375 G IV q6h; IV Vancomycin as per [facility] protocol; Percocet 5/325 1 Q^H prn; F/u blood and wound cultures; F/u DR Blankenship for repeat debridement and amputation of 5th toe and 5th metatarsal today. (2) Hypertensive urgency Is this a current diagnosis for this admission?: YesPlan: Ct with Amlodipine 10 mg daily po; Diovan 320 mg daily po; Metoprolol 25 mg BID PO; Clonidine 0.1mg q6h prn po; we will add Hydralazine 25 mg q8h PO to optimize BP control. Ct with 2 G sodium diet. (3) Diabetic ketoacidosis Qualifiers: Diabetes mellitus type: type 2 Diabetes mellitus complication detail: without coma Qualified Code(s): E13.10 - Other specified diabetes mellitus with ketoacidosis without coma Is this a current diagnosis for this admission?: YesPlan: Ct with IV fluid normal saline at 125 cc/hr; Slidding scale with humalog insulin [facility] protocol; Lantus insulin 40 iu qhs sucut; 1800 calorie ADA diet. (4) Rhabdomyolysis Qualifiers: Rhabdomyolysis type: non-traumatic Qualified Code(s): M62.82 - Rhabdomyolysis Is this a current diagnosis for this admission?: YesPlan: Ct with IV fluids normal saline at 125cc/hour; Monitor chemistries and CK daily ; Strict input/out put chart. (5) CHF exacerbation Qualifiers: Congestive heart failure type: unspecified congestive heart failure type Qualified Code(s): I50.9 - Heart failure, unspecified Is this a current diagnosis for this admission?: YesPlan: Ct with Bumetanide 1 mg daily po; KCL 10 mEQ daily po; Isosorbide mononitrate 30 mg daily po; serial EKG/cardiac enzymes; Daily wt; strict input/out put chart ; monitor chemistries daily. (6) Atrial fibrillation Qualifiers: Atrial fibrillation type: paroxysmal Qualified Code(s): I48.0 - Paroxysmal atrial fibrillation Is this a current diagnosis for this admission?: YesPlan: Ct with Eliquis 5 mg BID po; Metoprolol 25 mg BID po. (7) COPD (chronic obstructive pulmonary disease) Qualifiers: COPD type: unspecified COPD Qualified Code(s): J44.9 - Chronic obstructive pulmonary disease, unspecified Is this a current diagnosis for this admission?: YesPlan: Ct with Duonebs q6h pr; Spiriva 18 mcg daily; Oxygen by N/C 2 L/min. (8) Hypertension Qualifiers: Hypertension type: essential hypertension Qualified Code(s): I10 - Essential (primary) hypertension Is this a current diagnosis for this admission?: YesPlan: Ct with Amlodipine 10 mg daily po; Metoprolol 25 mg BID po; 2g sodium diet. Restart Valsartan 320 mg daily po; add clonidine 0.1mg q6h prn po for SBP>150 or DBP >100. (9) Hyperlipidemia Qualifiers: Hyperlipidemia type: unspecified Qualified Code(s): E78.5 - Hyperlipidemia, unspecified Is this a current diagnosis for this admission?: YesPlan: Hold Atorvastatin due to rhabdomyolysis; ct with 200 mg cholesterol diet. (10) Chronic kidney disease (CKD) Is this a current diagnosis for this admission?: YesPlan: Avoid nephrotoxics; daily chemistries; daily wt; strict input/out put chart. (11) Obstructive sleep apnea Is this a current diagnosis for this admission?: YesPlan: Ct with CPAP at night. (12) Iron deficiency anemia Qualifiers: Iron deficiency anemia type: unspecified iron deficiency Qualified Code(s): D50.9 - Iron deficiency anemia, unspecified Is this a current diagnosis for this admission?: YesPlan: Ct with Ferrous sulfate 325 mg BID po; monitor CBC daily. (13) Vitamin D deficiency Is this a current diagnosis for this admission?: YesPlan: Ct with Vitamin D [id number] weekly. (14) GERD (gastroesophageal reflux disease) Qualifiers: Esophagitis presence: without esophagitis Qualified Code(s): K21.9 - Gastro-esophageal reflux disease without esophagitis Is this a current diagnosis for this admission?: YesPlan: Ct with Prevacid 30 mg daily po. (15) Prostate cancer Is this a current diagnosis for this admission?: NoPlan: Ct with Alfuzosin 10 mg qd po. (16) Morbid obesity Qualifiers: Obesity type: unspecified obesity type Qualified Code(s): E66.01 - Morbid (severe) obesity due to excess calories Is this a current diagnosis for this admission?: YesPlan: Cty with diet/exercise counseling. (17) DVT prophylaxis Is this a current diagnosis for this admission?: YesPlan: Ct with Eliquis 5 mg BID po; SCD.
[2016-07-09] MEDS ORDERED: BUPIVACAINE HCL 0.25 % INJ/PF (2.5 MG/1 ML) 30 ML VIAL ONE (17:49)
[2016-07-09] MEDS ORDERED: LIDOCAINE 1%/EPINEPHRINE INJ 20 ML VIAL ONE (17:49)
[2016-07-09] MEDS ORDERED: PROPOFOL INJ 200 MG/20 ML VIAL IV ONE (18:26)
[2016-07-09] MEDS ORDERED: DEXMEDETOMIDINE INJ 80 MCG/20 ML VIAL IV ONE (19:01)
[2016-07-09] MEDS ORDERED: MORPHINE SULFATE 10 MG/ML INJ IV PRN (19:50)
--- NOTE | 2016-07-09 21:45 | Operative Report ---
Operative Report DATE OF SURGERY: 07/04/16 PREOPERATIVE DIAGNOSIS: Right foot diabetic wound POSTOPERATIVE DIAGNOSIS: Right foot diabetic wound OPERATION: Excisional debridement of right foot diabetic wound with right fifth toe amputation and partial amputation of fifth metatarsal bone. SURGEON: MAL ERWIN ANESTHESIA: LMAC TISSUE REMOVED OR ALTERED: Necrotic tissue from lateral aspect of right foot near fifth toe and fifth metatarsal. Full-thickness debridement down to tendon/ bone/ligament. COMPLICATIONS: none ESTIMATED BLOOD LOSS: 100 mL INTRAOPERATIVE FINDINGS: Large wound with undermining encompassing significant portion of the distal, lateral and mid foot. Necrotic tissue from lateral aspect of right foot near fifth toe and fifth metatarsal. Pus around fifth prox phalanx and metatarsal head. PROCEDURE: Informed consent obtained. Patient was brought to the operating room placed operating table in supine position. Since patient had little to no sensation of his right foot, procedure was done under LMAC. Patient's right foot was prepped and draped in usual sterile fashion. Local anesthetic was injected. Necrotic the skin edges from his open wound was sharply debrided with a scalpel. There was a opening at the base of the fifth toe with purulent drainage the skin overlying the base of the fifth toe appeared discolored. Fifth toe amputation was performed and this was taken in continuity with the proximal two third of the fifth metatarsal which was transected with a bone cutter. There was copious amounts of pus around the base of the fifth toe soft tissue space tissue in this area was sharply debrided down to viable tissue all necrotic tissue was debrided using combination of cautery and the scalpel. At the plantar aspect of the wound there were some necrotic tissue which was also sharply debrided. skin edges were trimmed back to viable skin edges that bled. Hemostasis was achieved with electrocautery. All tissue left behind appeared viable. The wound was then irrigated and the wound was packed with gauze patient tolerated procedure well with no apparent complications and was taken to the recovery area in stable condition.
[2016-07-09] MEDS: INSULIN GLARGINE,HUM.REC.ANLOG 300 UNIT/3 ML INSULN.PEN SUBCUT SCH (22:46)
[2016-07-09] MEDS: INSULIN LISPRO 100 UNIT/ML 3 ML VIAL SUBCUT PRN (22:46)
[2016-07-10] MEDS: VANCOMYCIN HCL 1,250 MG in DEXTROSE 5%-WATER 250 ML IV SCH ×2 (02:02→15:09)
[2016-07-10] MEDS: PIPERACILLIN SODIUM/TAZOBACTAM 3.375 GM in NORMAL SALINE 100 ML IV SCH ×4 (03:46→20:59)
[2016-07-10 05:09] LABS: ABSOLUTE EOSINOPHILS # (AUTO) 0.1 10^3/uL (0.0-0.6); ABSOLUTE LYMPHOCYTES (AUTO) 0.9 10^3/uL (0.5-4.7); ABSOLUTE NEUT (AUTO) 5.9 10^3/uL (1.7-8.2); BASOPHILS % (AUTO) 0.5 % (0-2); EOSINOPHILS % (AUTO) 1.2 % (0-6); HEMATOCRIT 27.3 % (37.9-51.0); HEMOGLOBIN 8.9 g/dL (13.5-17.0); HGB HCT DIFFERENCE -0.6; LYMPHOCYTES % (AUTO) 11.2 % (13-45); MEAN CORPUSCULAR HEMOGLOBIN 25.1 pg (27.0-33.4); MEAN CORPUSCULAR HGB CONC 32.4 g/dL (32.0-36.0); MEAN CORPUSCULAR VOLUME 77 fl (80-97); MONOCYTES % (AUTO) 12.8 % (3-13); RED BLOOD COUNT 3.53 10^6/uL (4.35-5.55); RED CELL DISTRIBUTION WIDTH 14.9 % (11.5-14.0); SEGMENTED NEUTROPHILS % (AUTO) 74.3 % (42-78)
[2016-07-10 05:28] LABS: ALANINE AMINOTRANSFERASE 56 U/L (21-72); ALBUMIN 2.7 g/dL (3.5-5.0); ALKALINE PHOSPHATASE 108 U/L (38-126); ANION GAP 10 (5-19); ASPARTATE AMINO TRANSFERASE 52 U/L (17-59); BILIRUBIN,TOTAL 0.8 mg/dL (0.2-1.3); BLOOD UREA NITROGEN 11 mg/dL (7-20); CALCIUM 8.1 mg/dL (8.4-10.2); CARBON DIOXIDE 26 mmol/L (22-30); CHLORIDE 103 mmol/L (98-107); CREATININE RESULT 1.36 mg/dL (0.52-1.25); GLUCOSE 190 mg/dL (75-110); POTASSIUM 3.7 mmol/L (3.6-5.0); SODIUM 139.1 mmol/L (137-145); TOTAL PROTEIN 6.6 g/dL (6.3-8.2)
[2016-07-10] MEDS: HYDRALAZINE HCL 25 MG TABLET PO SCH (05:43)
--- NOTE | 2016-07-10 07:55 | XCELERA REPORT ---
[address] [address] Lower Extremity Arterial Evaluation Name: CHARLA WEBB JR Age: 80 yrs Gender: Male : 1935 Patient Status: Inpatient Patient Location: [id number]\326\[id number] Study Date: 07/08/2016 10:05 AM Procedure: A color flow and duplex scan of the lower extremity arteries was performed on the right with velocity and waveform anaylsis. Reason For Study: osteo right fifth MT Ordering Physician: [employer] Performed By: May Jennings Measurements and Calculations Right Left PEANUT SHELLER PSV 164.2 cm/sec Prox PFA PSV -154.5 cm/sec Prox SFA PSV 79.5 cm/sec Mid SFA PSV -142.1 cm/sec Dist SFA PSV -92.1 cm/sec Prox Pop A PSV 87.3 cm/sec Dist Pop A PSV -77.3 cm/sec Dist DAVIS PSV 55.2 cm/sec Dist TRAFFIC INVESTIGATOR PSV -76.8 cm/sec Casey Pedis PSV -108.7 70.1 cm/sec Right Side Arterial Evaluation Normal velocity, waveform and triphasic flow are present, from the Common Femoral artery to the Femoral. Biphasic in the Popliteal, then monophasic in the infrageniculate vessels. The ankle-brachial index was not done. 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 With sequential disease. Left Side Arterial Evaluation Limited study on the left, showing monophasic, decreased flow in the Dorsalis Pedis. Interpretation Summary Severe hemodynamically significant lesions in the right lower extremity only, on duplex imaging, at rest. Severe disease suggested on very limited study on the left. : [employer] [place]
[2016-07-10] MEDS: INSULIN LISPRO 100 UNIT/ML 3 ML VIAL SUBCUT PRN (08:51)
[2016-07-10] MEDS: FERROUS SULFATE 325 MG TABLET PO SCH ×2 (08:52→17:48)
[2016-07-10] MEDS: GLIPIZIDE 10 MG TABLET PO SCH (08:52)
[2016-07-10] MEDS: POTASSIUM CHLORIDE 10 MEQ TABLET.SA PO SCH (11:01)
[2016-07-10] MEDS: ISOSORBIDE MONONITRATE 30 MG TAB.ER.24H PO SCH (11:01)
[2016-07-10] MEDS: BUMETANIDE 1 MG TABLET PO SCH (11:01)
[2016-07-10] MEDS: LANSOPRAZOLE 30 MG TAB.RAP.DR PO SCH (11:02)
[2016-07-10] MEDS: VALSARTAN 160 MG TABLET PO SCH (11:02)
[2016-07-10] MEDS: ASPIRIN 325 MG TABLET PO SCH (11:02)
[2016-07-10] MEDS: METOPROLOL TARTRATE 25 MG TABLET PO SCH ×2 (11:02→22:36)
[2016-07-10] MEDS: AMLODIPINE BESYLATE 10 MG TABLET PO SCH (11:02)
[2016-07-10] MEDS: TIOTROPIUM BROMIDE DPI 5 CAP/KIT (18 MCG/CAP) IH SCH (11:03)
--- NOTE | 2016-07-10 12:13 | PDOC PROGRESS REPORT ---
Subjective Progress Note for:: 07/10/16 Subjective:: He had debridement of right foot ulcer on 07/04/2016. He is feeling much better and his BP is still uncontrolled. We will restart his Valsartan 320 mg qd and Metoprolol 25 mg BID; add Clonidine 0.1mg q6h prn. F/u PT/OT consult. F/u Gen. surgery for wound mgt. We will increase to Hydralazine 50 mg q8h PO to help optimize BP control. He had repeat debridement and amputation of right 5th toe and partial excision of 5th metatarsal today. Physical Exam Vital Signs: Temp Pulse Resp BP Pulse Ox 98.3 F 58 L 18 183/68 H 100 07/10/16 07:04 07/10/16 07:04 07/10/16 07:04 07/10/16 07:04 07/10/16 07:04 Intake & Output 07/09/16 07/10/16 07/11/16 06:59 06:59 06:59 Intake Total 2447 4014 Output Total 750 Balance 2447 3264 Weight 124.7 kg 125.5 kg General appearance: PRESENT: no acute distress, morbidly obese, well-developed, well-nourished Head exam: PRESENT: atraumatic, normocephalic Eye exam: PRESENT: EOMI, PERRLA Mouth exam: PRESENT: moist, neck supple, tongue midline Respiratory exam: PRESENT: decreased breath sounds Cardiovascular exam: PRESENT: irregular rhythm, +S1, +S2 GI/Abdominal exam: PRESENT: normal bowel sounds, soft Neurological exam: PRESENT: alert, awake, oriented to person, oriented to place , oriented to time, CN II-XII grossly intact Psychiatric exam: PRESENT: normal mood Results Laboratory Results: 07/10/16 04:27 07/10/16 04:27 07/10/16 07/10/16 04:27 04:27 WBC 8.0 RBC 3.53 L Hgb 8.9 L Hct 27.3 L MCV 77 L MCH 25.1 L MCHC 32.4 RDW 14.9 H Plt Count 249 Seg Neutrophils % 74.3 Lymphocytes % 11.2 L Monocytes % 12.8 Eosinophils % 1.2 Basophils % 0.5 Absolute Neutrophils 5.9 Absolute Lymphocytes 0.9 Absolute Monocytes 1.0 Absolute Eosinophils 0.1 Absolute Basophils 0.0 Sodium 139.1 Potassium 3.7 Chloride 103 Carbon Dioxide 26 Anion Gap 10 BUN 11 Creatinine 1.36 H Est GFR ( Amer) > 60 Est GFR (Non-Af Amer) 51 L Glucose 190 H Calcium 8.1 L Total Bilirubin 0.8 AST 52 ALT 56 Alkaline Phosphatase 108 Total Protein 6.6 Albumin 2.7 L 07/04/16 07/04/16 07/06/16 07:46 07:46 06:05 Creatine Kinase 2326 H 691 H NT-Pro-B Natriuret Pep 33845 H 07/07/16 07/08/16 05:43 05:43 Creatine Kinase 502 H 355 H NT-Pro-B Natriuret Pep Impressions: Chest X-Ray 07/03/16 16:13 IMPRESSION: No significant interval change. Cardiomegaly with mild pulmonary vascular congestion. No acute consolidations or pleural effusions are identified. Foot X-Ray 07/03/16 16:14 IMPRESSION: EROSIVE CHANGES INVOLVING THE HEAD OF THE 5TH METATARSAL AND BASE OF THE PROXIMAL PHALANX OF THE 5TH TOE. FINDINGS ARE SUSPICIOUS FOR OSTEOMYELITIS, PROBABLY CHRONIC. GENERAL SOFT TISSUE SWELLING. NO ACUTE FINDINGS. Lower Extremity MRI 07/04/16 09:00 IMPRESSION: 5th metatarsal and 5th proximal phalanx osteomyelitis Extensive deep tissue cellulitis right foot without gross evidence of abscess Assessment & Plan - Diagnosis (1) Osteomyelitis of right foot Qualifiers: Chronicity: acute Qualified Code(s): M86.171 - Other acute osteomyelitis, right ankle and foot Is this a current diagnosis for this admission?: YesPlan: Ct with Zosyn 3.375 G IV q6h; IV Vancomycin as per [facility] protocol; Percocet 5/325 1 Q6H prn; F/u blood and wound cultures; He had repeat debridement and amputation of 5th toe and 5th metatarsal yesterday by Dr Blankenship. (2) Hypertensive urgency Is this a current diagnosis for this admission?: YesPlan: Ct with Amlodipine 10 mg daily po; Diovan 320 mg daily po; Metoprolol 25 mg BID PO; Clonidine 0.1mg q6h prn po; we will increase Hydralazine to 50 mg q8h PO to optimize BP control. Ct with 2 G sodium diet. (3) Diabetic ketoacidosis Qualifiers: Diabetes mellitus type: type 2 Diabetes mellitus complication detail: without coma Qualified Code(s): E13.10 - Other specified diabetes mellitus with ketoacidosis without coma Is this a current diagnosis for this admission?: YesPlan: Ct with IV fluid normal saline at 125 cc/hr; Slidding scale with humalog insulin [facility] protocol; Lantus insulin 40 iu qhs sucut; 1800 calorie ADA diet. (4) Rhabdomyolysis Qualifiers: Rhabdomyolysis type: non-traumatic Qualified Code(s): M62.82 - Rhabdomyolysis Is this a current diagnosis for this admission?: YesPlan: Ct with IV fluids normal saline at 125cc/hour; Monitor chemistries and CK daily ; Strict input/out put chart. 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 (6) CHF exacerbation Qualifiers: Congestive heart failure type: unspecified congestive heart failure type Qualified Code(s): I50.9 - Heart failure, unspecified Is this a current diagnosis for this admission?: Yes (7) Atrial fibrillation Qualifiers: Atrial fibrillation type: paroxysmal Qualified Code(s): I48.0 - Paroxysmal atrial fibrillation Is this a current diagnosis for this admission?: YesPlan: Ct with Eliquis 5 mg BID po; Metoprolol 25 mg BID po. (8) COPD (chronic obstructive pulmonary disease) Qualifiers: COPD type: unspecified COPD Qualified Code(s): J44.9 - Chronic obstructive pulmonary disease, unspecified Is this a current diagnosis for this admission?: YesPlan: Ct with Duonebs q6h pr; Spiriva 18 mcg daily; Oxygen by N/C 2 L/min. (9) Hypertension Qualifiers: Hypertension type: essential hypertension Qualified Code(s): I10 - Essential (primary) hypertension Is this a current diagnosis for this admission?: YesPlan: Ct with Amlodipine 10 mg daily po; Metoprolol 25 mg BID po; 2g sodium diet. Restart Valsartan 320 mg daily po; add clonidine 0.1mg q6h prn po for SBP>150 or DBP >100. (10) Hyperlipidemia Qualifiers: Hyperlipidemia type: unspecified Qualified Code(s): E78.5 - Hyperlipidemia, unspecified Is this a current diagnosis for this admission?: YesPlan: Hold Atorvastatin due to rhabdomyolysis; ct with 200 mg cholesterol diet. (11) Chronic kidney disease (CKD) Is this a current diagnosis for this admission?: YesPlan: Avoid nephrotoxics; daily chemistries; daily wt; strict input/out put chart. (12) Obstructive sleep apnea Is this a current diagnosis for this admission?: YesPlan: Ct with CPAP at night. (13) Iron deficiency anemia Qualifiers: Iron deficiency anemia type: unspecified iron deficiency Qualified Code(s): D50.9 - Iron deficiency anemia, unspecified Is this a current diagnosis for this admission?: YesPlan: Ct with Ferrous sulfate 325 mg BID po; monitor CBC daily. (14) Vitamin D deficiency Is this a current diagnosis for this admission?: YesPlan: Ct with Vitamin D 49279nb weekly. (15) GERD (gastroesophageal reflux disease) Qualifiers: Esophagitis presence: without esophagitis Qualified Code(s): K21.9 - Gastro-esophageal reflux disease without esophagitis Is this a current diagnosis for this admission?: YesPlan: Ct with Prevacid 30 mg daily po. (16) Prostate cancer Is this a current diagnosis for this admission?: NoPlan: Ct with Alfuzosin 10 mg qd po. (17) Morbid obesity Qualifiers: Obesity type: unspecified obesity type Qualified Code(s): E66.01 - Morbid (severe) obesity due to excess calories Is this a current diagnosis for this admission?: YesPlan: Cty with diet/exercise counseling. (18) DVT prophylaxis Is this a current diagnosis for this admission?: YesPlan: Ct with Eliquis 5 mg BID po; SCD.
[2016-07-10] MEDS: HYDRALAZINE HCL 50 MG TABLET PO SCH ×2 (15:08→22:35)
[2016-07-10] MEDS: INSULIN GLARGINE,HUM.REC.ANLOG 300 UNIT/3 ML INSULN.PEN SUBCUT SCH (22:37)
[2016-07-11] MEDS: VANCOMYCIN HCL 1,250 MG in DEXTROSE 5%-WATER 250 ML IV SCH (01:45)
[2016-07-11] MEDS: NORMAL SALINE 1000 ML 1,000 ML IV PRN (01:45)
[2016-07-11] MEDS: PIPERACILLIN SODIUM/TAZOBACTAM 3.375 GM in NORMAL SALINE 100 ML IV SCH (03:54)
[2016-07-11] MEDS: HYDRALAZINE HCL 50 MG TABLET PO SCH ×3 (05:49→22:04)
--- NOTE | 2016-07-11 08:17 | PDOC PROGRESS REPORT ---
Subjective Progress Note for:: 07/10/16 Subjective:: The patient was seen earlier. He had an additional operative debridement with Dr. Blankenship yesterday. No complaints. Physical Exam Vital Signs: Temp Pulse Resp BP Pulse Ox 97.6 F 57 L 20 146/63 H 99 07/11/16 04:16 07/11/16 04:16 07/11/16 04:16 07/11/16 04:16 07/11/16 04:16 Intake & Output 07/10/16 07/11/16 07/12/16 06:59 06:59 06:59 Intake Total 4014 1877 Output Total 750 Balance 3264 1877 Weight 125.5 kg General appearance: PRESENT: no acute distress Head exam: PRESENT: normocephalic Respiratory exam: PRESENT: unlabored Extremities exam: PRESENT: other - Right foot dressing removed. Extensive wound with lateral aspect of right foot open and fifth toe and metatarsal amp. Wound extends to midfoot with undermining and some forefoot undermining. Both the undermined areas are probed with hydrogen peroxide soaked Q-tips. Scant fibril purulent material. Wound is scrubbed with hydrogen peroxide and gauze and then repacked with iodoform gauze, gauze 4 x 4's and Kerlix roll. Patient tolerated with some discomfort. Neurological exam: PRESENT: alert, oriented to situation Results Laboratory Results: 07/10/16 04:27 07/10/16 04:27 07/09/16 19:32 Toe - Right Fifth Gram Stain - Final 07/04/16 07/04/16 07/06/16 07:46 07:46 06:05 Creatine Kinase 2326 H 691 H NT-Pro-B Natriuret Pep 08170 H 07/07/16 07/08/16 05:43 05:43 Creatine Kinase 502 H 355 H NT-Pro-B Natriuret Pep Impressions: Chest X-Ray 07/03/16 16:13 IMPRESSION: No significant interval change. Cardiomegaly with mild pulmonary vascular congestion. No acute consolidations or pleural effusions are identified. Foot X-Ray 07/03/16 16:14 IMPRESSION: EROSIVE CHANGES INVOLVING THE HEAD OF THE 5TH METATARSAL AND BASE OF THE PROXIMAL PHALANX OF THE 5TH TOE. FINDINGS ARE SUSPICIOUS FOR OSTEOMYELITIS, PROBABLY CHRONIC. GENERAL SOFT TISSUE SWELLING. NO ACUTE FINDINGS. Lower Extremity MRI 07/04/16 09:00 IMPRESSION: 5th metatarsal and 5th proximal phalanx osteomyelitis Extensive deep tissue cellulitis right foot without gross evidence of abscess Assessment & Plan - Diagnosis (1) Diabetic ketoacidosis Qualifiers: Diabetes mellitus type: type 2 Diabetes mellitus complication detail: without coma Qualified Code(s): E13.10 - Other specified diabetes mellitus with ketoacidosis without coma Is this a current diagnosis for this admission?: Yes (2) Osteomyelitis Qualifiers: Osteomyelitis location: foot Laterality: right Chronicity: acute Qualified Code(s): M86.171 - Other acute osteomyelitis, right ankle and foot Is this a current diagnosis for this admission?: Yes (3) Anemia of chronic disease Is this a current diagnosis for this admission?: Yes (4) Atrial flutter Is this a current diagnosis for this admission?: Yes (6) CHF exacerbation Qualifiers: Congestive heart failure type: unspecified congestive heart failure type Qualified Code(s): I50.9 - Heart failure, unspecified Is this a current diagnosis for this admission?: Yes (7) Diabetes mellitus type 2 in obese Is this a current diagnosis for this admission?: Yes (8) COPD (chronic obstructive pulmonary disease) Qualifiers: COPD type: unspecified COPD Qualified Code(s): J44.9 - Chronic obstructive pulmonary disease, unspecified Is this a current diagnosis for this admission?: Yes (9) Osteomyelitis of right foot Qualifiers: Chronicity: acute Qualified Code(s): M86.171 - Other acute osteomyelitis, right ankle and foot Is this a current diagnosis for this admission?: YesPlan: Doing well from yesterday's surgery. The wound is still extensive with some undermining. Still declaring itself, may need further debridement in the future. Continue daily wound care.
[2016-07-11] MEDS: POTASSIUM CHLORIDE 10 MEQ TABLET.SA PO SCH (09:06)
[2016-07-11] MEDS: VALSARTAN 160 MG TABLET PO SCH (09:06)
[2016-07-11] MEDS: LANSOPRAZOLE 30 MG TAB.RAP.DR PO SCH (09:06)
[2016-07-11] MEDS: ASPIRIN 325 MG TABLET PO SCH (09:06)
[2016-07-11] MEDS: ISOSORBIDE MONONITRATE 30 MG TAB.ER.24H PO SCH (09:09)
[2016-07-11] MEDS: AMLODIPINE BESYLATE 10 MG TABLET PO SCH (09:09)
[2016-07-11] MEDS: FERROUS SULFATE 325 MG TABLET PO SCH ×2 (09:09→17:05)
[2016-07-11] MEDS: METOPROLOL TARTRATE 25 MG TABLET PO SCH ×2 (09:09→22:04)
[2016-07-11] MEDS: BUMETANIDE 1 MG TABLET PO SCH (09:10)
[2016-07-11] MEDS: TIOTROPIUM BROMIDE DPI 5 CAP/KIT (18 MCG/CAP) IH SCH (09:11)
[2016-07-11] MEDS: GLIPIZIDE 10 MG TABLET PO SCH (09:11)
[2016-07-11 11:17] LABS: ABSOLUTE EOSINOPHILS # (AUTO) 0.2 10^3/uL (0.0-0.6); ABSOLUTE MONOCYTES (AUTO) 0.8 10^3/uL (0.1-1.4); ABSOLUTE NEUT (AUTO) 4.4 10^3/uL (1.7-8.2); BASOPHILS % (AUTO) 0.7 % (0-2); EOSINOPHILS % (AUTO) 2.5 % (0-6); HEMATOCRIT 26.6 % (37.9-51.0); HEMOGLOBIN 8.2 g/dL (13.5-17.0); LYMPHOCYTES % (AUTO) 15.7 % (13-45); MEAN CORPUSCULAR HEMOGLOBIN 24.3 pg (27.0-33.4); MEAN CORPUSCULAR HGB CONC 30.8 g/dL (32.0-36.0); MEAN CORPUSCULAR VOLUME 79 fl (80-97); MONOCYTES % (AUTO) 12.7 % (3-13); RED BLOOD COUNT 3.37 10^6/uL (4.35-5.55); RED CELL DISTRIBUTION WIDTH 15.3 % (11.5-14.0); SEGMENTED NEUTROPHILS % (AUTO) 68.4 % (42-78); WHITE BLOOD COUNT 6.5 10^3/uL (4.0-10.5)
[2016-07-11 11:34] LABS: ALANINE AMINOTRANSFERASE 51 U/L (21-72); ALBUMIN 2.6 g/dL (3.5-5.0); ALKALINE PHOSPHATASE 109 U/L (38-126); ANION GAP 10 (5-19); ASPARTATE AMINO TRANSFERASE 49 U/L (17-59); BILIRUBIN,TOTAL 0.7 mg/dL (0.2-1.3); BLOOD UREA NITROGEN 10 mg/dL (7-20); CALCIUM 8.3 mg/dL (8.4-10.2); CARBON DIOXIDE 27 mmol/L (22-30); CHLORIDE 104 mmol/L (98-107); GLUCOSE 101 mg/dL (75-110); POTASSIUM 3.8 mmol/L (3.6-5.0); SODIUM 140.8 mmol/L (137-145); TOTAL PROTEIN 6.3 g/dL (6.3-8.2)
--- NOTE | 2016-07-11 16:51 | PDOC PROGRESS REPORT ---
Subjective Progress Note for:: 07/11/16 Subjective:: He had debridement of right foot ulcer on 07/04/2016. He is feeling much better and his BP is still uncontrolled. We will restart his Valsartan 320 mg qd and Metoprolol 25 mg BID; add Clonidine 0.1mg q6h prn. F/u PT/OT consult. F/u Gen. surgery for wound mgt. We will increase to Hydralazine 50 mg q8h PO to help optimize BP control. He had repeat debridement and amputation of right 5th toe and partial excision of 5th metatarsal on 07/09/2016. Physical Exam Vital Signs: Temp Pulse Resp BP Pulse Ox 97.6 F 57 L 22 H 143/61 H 100 07/11/16 11:17 07/11/16 14:00 07/11/16 11:17 07/11/16 11:17 07/11/16 11:17 Intake & Output 07/10/16 07/11/16 07/12/16 06:59 06:59 06:59 Intake Total 4014 1877 Output Total 750 Balance 3264 1877 Weight 125.5 kg 124.9 kg General appearance: PRESENT: morbidly obese, well-developed, well-nourished Head exam: PRESENT: atraumatic, normocephalic Eye exam: PRESENT: EOMI, PERRLA Ear exam: PRESENT: TM's normal bilaterally Neck exam: PRESENT: full ROM Respiratory exam: PRESENT: clear to auscultation [place], symmetrical Cardiovascular exam: PRESENT: +S1, +S2 Pulses: PRESENT: +1 pedal pulses bilateral GI/Abdominal exam: PRESENT: normal bowel sounds - Right foot covered with dressing., soft Neurological exam: PRESENT: alert, awake, oriented to person, oriented to place , oriented to time Psychiatric exam: PRESENT: normal mood Results Laboratory Results: 07/11/16 10:56 07/11/16 10:56 07/11/16 07/11/16 10:56 10:56 WBC 6.5 RBC 3.37 L Hgb 8.2 L Hct 26.6 L MCV 79 L MCH 24.3 L MCHC 30.8 L RDW 15.3 H Plt Count 247 Seg Neutrophils % 68.4 Lymphocytes % 15.7 Monocytes % 12.7 Eosinophils % 2.5 Basophils % 0.7 Absolute Neutrophils 4.4 Absolute Lymphocytes 1.0 Absolute Monocytes 0.8 Absolute Eosinophils 0.2 Absolute Basophils 0.0 Sodium 140.8 Potassium 3.8 Chloride 104 Carbon Dioxide 27 Anion Gap 10 BUN 10 Creatinine 1.60 H Est GFR ( Amer) 51 L Est GFR (Non-Af Amer) 42 L Glucose 101 Calcium 8.3 L Total Bilirubin 0.7 AST 49 ALT 51 Alkaline Phosphatase 109 Total Protein 6.3 Albumin 2.6 L 07/09/16 19:32 Toe - Right Fifth Gram Stain - Final 07/04/16 07/04/16 07/06/16 07:46 07:46 06:05 Creatine Kinase 2326 H 691 H NT-Pro-B Natriuret Pep 11340 H 07/07/16 07/08/16 05:43 05:43 Creatine Kinase 502 H 355 H NT-Pro-B Natriuret Pep Impressions: Chest X-Ray 07/03/16 16:13 IMPRESSION: No significant interval change. Cardiomegaly with mild pulmonary vascular congestion. No acute consolidations or pleural effusions are identified. Foot X-Ray 07/03/16 16:14 IMPRESSION: EROSIVE CHANGES INVOLVING THE HEAD OF THE 5TH METATARSAL AND BASE OF THE PROXIMAL PHALANX OF THE 5TH TOE. FINDINGS ARE SUSPICIOUS FOR OSTEOMYELITIS, PROBABLY CHRONIC. GENERAL SOFT TISSUE SWELLING. NO ACUTE FINDINGS. Lower Extremity MRI 07/04/16 09:00 IMPRESSION: 5th metatarsal and 5th proximal phalanx osteomyelitis Extensive deep tissue cellulitis right foot without gross evidence of abscess Assessment & Plan - Diagnosis (1) Osteomyelitis of right foot Qualifiers: Chronicity: acute Qualified Code(s): M86.171 - Other acute osteomyelitis, right ankle and foot Is this a current diagnosis for this admission?: YesPlan: Ct with Zosyn 3.375 G IV q6h; IV Vancomycin as per [facility] protocol; Percocet 5/325 1 Q6H prn; F/u blood and wound cultures; He had repeat debridement and amputation of 5th toe and 5th metatarsal on 07/09/[address] Blankenship. (2) Hypertensive urgency Is this a current diagnosis for this admission?: YesPlan: Ct with Amlodipine 10 mg daily po; Diovan 320 mg daily po; Metoprolol 25 mg BID PO; Clonidine 0.1mg q6h prn po; we will increase Hydralazine to 50 mg q8h PO to optimize BP control. Ct with 2 G sodium diet. (3) Diabetic ketoacidosis Qualifiers: Diabetes mellitus type: type 2 Diabetes mellitus complication detail: without coma Qualified Code(s): E13.10 - Other specified diabetes mellitus with ketoacidosis without coma Is this a current diagnosis for this admission?: YesPlan: Ct with IV fluid normal saline at 125 cc/hr; Slidding scale with humalog insulin [facility] protocol; Lantus insulin 40 iu qhs sucut; 1800 calorie ADA diet. (4) Rhabdomyolysis Qualifiers: Rhabdomyolysis type: non-traumatic Qualified Code(s): M62.82 - Rhabdomyolysis Is this a current diagnosis for this admission?: YesPlan: Ct with IV fluids normal saline at 125cc/hour; Monitor chemistries and CK daily ; Strict input/out put chart. 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 (6) CHF exacerbation Qualifiers: Congestive heart failure type: unspecified congestive heart failure type Qualified Code(s): I50.9 - Heart failure, unspecified Is this a current diagnosis for this admission?: YesPlan: Ct with Bumetanide 1 mg daily po; KCL 10 mEQ daily po; Isosorbide mononitrate 30 mg daily po; serial EKG/cardiac enzymes; Daily wt; strict input/out put chart ; monitor chemistries daily. (7) Atrial fibrillation Qualifiers: Atrial fibrillation type: paroxysmal Qualified Code(s): I48.0 - Paroxysmal atrial fibrillation Is this a current diagnosis for this admission?: YesPlan: Ct with Eliquis 5 mg BID po; Metoprolol 25 mg BID po. (8) COPD (chronic obstructive pulmonary disease) Qualifiers: COPD type: unspecified COPD Qualified Code(s): J44.9 - Chronic obstructive pulmonary disease, unspecified Is this a current diagnosis for this admission?: YesPlan: Ct with Duonebs q6h pr; Spiriva 18 mcg daily; Oxygen by N/C 2 L/min. (9) Hypertension Qualifiers: Hypertension type: essential hypertension Qualified Code(s): I10 - Essential (primary) hypertension Is this a current diagnosis for this admission?: YesPlan: Ct with Amlodipine 10 mg daily po; Metoprolol 25 mg BID po; 2g sodium diet. Restart Valsartan 320 mg daily po; add clonidine 0.1mg q6h prn po for SBP>150 or DBP >100. (10) Hyperlipidemia Qualifiers: Hyperlipidemia type: unspecified Qualified Code(s): E78.5 - Hyperlipidemia, unspecified Is this a current diagnosis for this admission?: YesPlan: Hold Atorvastatin due to rhabdomyolysis; ct with 200 mg cholesterol diet. (11) Chronic kidney disease (CKD) Is this a current diagnosis for this admission?: YesPlan: Avoid nephrotoxics; daily chemistries; daily wt; strict input/out put chart. (12) Obstructive sleep apnea Is this a current diagnosis for this admission?: YesPlan: Ct with CPAP at night. (13) Iron deficiency anemia Qualifiers: Iron deficiency anemia type: unspecified iron deficiency Qualified Code(s): D50.9 - Iron deficiency anemia, unspecified Is this a current diagnosis for this admission?: YesPlan: Ct with Ferrous sulfate 325 mg BID po; monitor CBC daily. (14) Vitamin D deficiency Is this a current diagnosis for this admission?: YesPlan: Ct with Vitamin D 54282bv weekly. (15) GERD (gastroesophageal reflux disease) Qualifiers: Esophagitis presence: without esophagitis Qualified Code(s): K21.9 - Gastro-esophageal reflux disease without esophagitis Is this a current diagnosis for this admission?: YesPlan: Ct with Prevacid 30 mg daily po. (16) Prostate cancer Is this a current diagnosis for this admission?: NoPlan: Ct with Alfuzosin 10 mg qd po. (17) Morbid obesity Qualifiers: Obesity type: unspecified obesity type Qualified Code(s): E66.01 - Morbid (severe) obesity due to excess calories Is this a current diagnosis for this admission?: YesPlan: Cty with diet/exercise counseling. (18) DVT prophylaxis Is this a current diagnosis for this admission?: YesPlan: Ct with Eliquis 5 mg BID po; SCD.
[2016-07-11] MEDS: INSULIN GLARGINE,HUM.REC.ANLOG 300 UNIT/3 ML INSULN.PEN SUBCUT SCH (22:05)
[2016-07-12 05:07] LABS: ABSOLUTE EOSINOPHILS # (AUTO) 0.1 10^3/uL (0.0-0.6); ABSOLUTE LYMPHOCYTES (AUTO) 1.1 10^3/uL (0.5-4.7); ABSOLUTE MONOCYTES (AUTO) 0.7 10^3/uL (0.1-1.4); ABSOLUTE NEUT (AUTO) 4.1 10^3/uL (1.7-8.2); BASOPHILS % (AUTO) 0.4 % (0-2); HEMATOCRIT 27.4 % (37.9-51.0); HEMOGLOBIN 8.4 g/dL (13.5-17.0); HGB HCT DIFFERENCE -2.2; LYMPHOCYTES % (AUTO) 18.2 % (13-45); MEAN CORPUSCULAR HEMOGLOBIN 24.2 pg (27.0-33.4); MEAN CORPUSCULAR HGB CONC 30.9 g/dL (32.0-36.0); MEAN CORPUSCULAR VOLUME 78 fl (80-97); MONOCYTES % (AUTO) 12.4 % (3-13); RED CELL DISTRIBUTION WIDTH 14.9 % (11.5-14.0)
[2016-07-12 05:30] LABS: ALANINE AMINOTRANSFERASE 53 U/L (21-72); ALBUMIN 2.7 g/dL (3.5-5.0); ALKALINE PHOSPHATASE 121 U/L (38-126); ANION GAP 10 (5-19); ASPARTATE AMINO TRANSFERASE 49 U/L (17-59); BILIRUBIN,TOTAL 0.7 mg/dL (0.2-1.3); BLOOD UREA NITROGEN 9 mg/dL (7-20); CALCIUM 8.5 mg/dL (8.4-10.2); CARBON DIOXIDE 28 mmol/L (22-30); CHLORIDE 104 mmol/L (98-107); CREATININE RESULT 1.55 mg/dL (0.52-1.25); GLUCOSE 58 mg/dL (75-110); POTASSIUM 3.8 mmol/L (3.6-5.0); SODIUM 141.6 mmol/L (137-145); TOTAL PROTEIN 6.7 g/dL (6.3-8.2)
[2016-07-12] MEDS: HYDRALAZINE HCL 50 MG TABLET PO SCH ×3 (05:52→22:55)
--- NOTE | 2016-07-12 09:01 | PDOC PROGRESS REPORT ---
Subjective Subjective:: No complaints. Physical Exam Vital Signs: Temp Pulse Resp BP Pulse Ox 97.6 F 58 L 20 173/73 H 97 07/12/16 07:15 07/12/16 07:15 07/12/16 07:15 07/12/16 07:15 07/12/16 07:15 Intake & Output 07/11/16 07/12/16 07/13/16 06:59 06:59 06:59 Intake Total 1877 1771 Balance 1877 1771 Weight 124.9 kg 124.9 kg General appearance: PRESENT: no acute distress Head exam: PRESENT: normocephalic Extremities exam: PRESENT: other - Right foot wound. Status post 2 debridements. Fifth toe/metatarsal area. Wound still has 2 areas of undermining. Wound looks better than yesterday. Less erythema, induration, edema. Both undermined areas are probed and debrided with hygiene peroxide Q- tips. The wound is repacked with iodoform gauze and redressed with gauze 4 x 4' s and Kerlix roll. Patient tolerated with some pain. Neurological exam: PRESENT: alert, oriented to situation Results Laboratory Results: 07/12/16 04:17 07/12/16 04:17 07/11/16 07/11/16 07/12/16 10:56 10:56 04:17 WBC 6.5 6.0 RBC 3.37 L 3.50 L Hgb 8.2 L 8.4 L Hct 26.6 L 27.4 L MCV 79 L 78 L MCH 24.3 L 24.2 L MCHC 30.8 L 30.9 L RDW 15.3 H 14.9 H Plt Count 247 262 Seg Neutrophils % 68.4 67.0 Lymphocytes % 15.7 18.2 Monocytes % 12.7 12.4 Eosinophils % 2.5 2.0 Basophils % 0.7 0.4 Absolute Neutrophils 4.4 4.1 Absolute Lymphocytes 1.0 1.1 Absolute Monocytes 0.8 0.7 Absolute Eosinophils 0.2 0.1 Absolute Basophils 0.0 0.0 Sodium 140.8 Potassium 3.8 Chloride 104 Carbon Dioxide 27 Anion Gap 10 BUN 10 Creatinine 1.60 H Est GFR ( Amer) 51 L Est GFR (Non-Af Amer) 42 L Glucose 101 Calcium 8.3 L Total Bilirubin 0.7 AST 49 ALT 51 Alkaline Phosphatase 109 Total Protein 6.3 Albumin 2.6 L 07/12/16 04:17 WBC RBC Hgb Hct MCV MCH MCHC RDW Plt Count Seg Neutrophils % Lymphocytes % Monocytes % Eosinophils % Basophils % Absolute Neutrophils Absolute Lymphocytes Absolute Monocytes Absolute Eosinophils Absolute Basophils Sodium 141.6 Potassium 3.8 Chloride 104 Carbon Dioxide 28 Anion Gap 10 BUN 9 Creatinine 1.55 H Est GFR ( Amer) 53 L Est GFR (Non-Af Amer) 44 L Glucose 58 L Calcium 8.5 Total Bilirubin 0.7 AST 49 ALT 53 Alkaline Phosphatase 121 Total Protein 6.7 Albumin 2.7 L 07/09/16 19:32 Toe - Right Fifth Gram Stain - Final 07/04/16 07/04/16 07/06/16 07:46 07:46 06:05 Creatine Kinase 2326 H 691 H NT-Pro-B Natriuret Pep 55210 H 07/07/16 07/08/16 05:43 05:43 Creatine Kinase 502 H 355 H NT-Pro-B Natriuret Pep Impressions: Chest X-Ray 07/03/16 16:13 IMPRESSION: No significant interval change. Cardiomegaly with mild pulmonary vascular congestion. No acute consolidations or pleural effusions are identified. Foot X-Ray 07/03/16 16:14 IMPRESSION: EROSIVE CHANGES INVOLVING THE HEAD OF THE 5TH METATARSAL AND BASE OF THE PROXIMAL PHALANX OF THE 5TH TOE. FINDINGS ARE SUSPICIOUS FOR OSTEOMYELITIS, PROBABLY CHRONIC. GENERAL SOFT TISSUE SWELLING. NO ACUTE FINDINGS. Lower Extremity MRI 07/04/16 09:00 IMPRESSION: 5th metatarsal and 5th proximal phalanx osteomyelitis Extensive deep tissue cellulitis right foot without gross evidence of abscess Assessment & Plan - Diagnosis (1) Diabetic ketoacidosis Qualifiers: Diabetes mellitus type: type 2 Diabetes mellitus complication detail: without coma Qualified Code(s): E13.10 - Other specified diabetes mellitus with ketoacidosis without coma Is this a current diagnosis for this admission?: Yes (2) Osteomyelitis Qualifiers: Osteomyelitis location: foot Laterality: right Chronicity: acute Qualified Code(s): M86.171 - Other acute osteomyelitis, right ankle and foot Is this a current diagnosis for this admission?: Yes (3) Anemia of chronic disease Is this a current diagnosis for this admission?: Yes (4) Atrial flutter Is this a current diagnosis for this admission?: Yes (6) CHF exacerbation Qualifiers: Congestive heart failure type: unspecified congestive heart failure type Qualified Code(s): I50.9 - Heart failure, unspecified Is this a current diagnosis for this admission?: Yes (7) Diabetes mellitus type 2 in obese Is this a current diagnosis for this admission?: Yes (8) COPD (chronic obstructive pulmonary disease) Qualifiers: COPD type: unspecified COPD Qualified Code(s): J44.9 - Chronic obstructive pulmonary disease, unspecified Is this a current diagnosis for this admission?: Yes (9) Osteomyelitis of right foot Qualifiers: Chronicity: acute Qualified Code(s): M86.171 - Other acute osteomyelitis, right ankle and foot Is this a current diagnosis for this admission?: YesPlan: Late note. Rounding late for 07/11/2016. Wound Care performed. Doing well. Foot is looking better. Continue daily wound care..
[2016-07-12] MEDS: ASPIRIN 325 MG TABLET PO SCH (09:14)
[2016-07-12] MEDS: FERROUS SULFATE 325 MG TABLET PO SCH ×2 (09:14→18:06)
[2016-07-12] MEDS: LANSOPRAZOLE 30 MG TAB.RAP.DR PO SCH (09:15)
[2016-07-12] MEDS: VALSARTAN 160 MG TABLET PO SCH (09:15)
[2016-07-12] MEDS: BUMETANIDE 1 MG TABLET PO SCH (09:16)
[2016-07-12] MEDS: AMLODIPINE BESYLATE 10 MG TABLET PO SCH (09:16)
[2016-07-12] MEDS: POTASSIUM CHLORIDE 10 MEQ TABLET.SA PO SCH (09:16)
[2016-07-12] MEDS: METOPROLOL TARTRATE 25 MG TABLET PO SCH ×2 (09:16→22:55)
[2016-07-12] MEDS: TIOTROPIUM BROMIDE DPI 5 CAP/KIT (18 MCG/CAP) IH SCH (09:16)
[2016-07-12] MEDS: ISOSORBIDE MONONITRATE 30 MG TAB.ER.24H PO SCH (09:16)
[2016-07-12] MEDS: GLIPIZIDE 10 MG TABLET PO SCH (09:17)
--- NOTE | 2016-07-12 12:55 | PDOC PROGRESS REPORT ---
Subjective Progress Note for:: 07/12/16 Subjective:: He had debridement of right foot ulcer on 07/04/2016. He is feeling much better and his BP is still uncontrolled. We restarted his Valsartan 320 mg qd and Metoprolol 25 mg BID; add Clonidine 0.1mg q6h prn. F/u PT/OT consult. F/u Gen. surgery for wound mgt. We increased Hydralazine 50 mg q8h PO to help optimize BP control. He had repeat debridement and amputation of right 5th toe and partial excision of 5th metatarsal on 07/09/2016. Physical Exam Vital Signs: Temp Pulse Resp BP Pulse Ox 97.6 F 58 L 20 173/73 H 97 07/12/16 07:15 07/12/16 07:15 07/12/16 07:15 07/12/16 07:15 07/12/16 07:15 Intake & Output 07/11/16 07/12/16 07/13/16 06:59 06:59 06:59 Intake Total 1876 1771 Balance 187 1771 Weight 124.9 kg 124.9 kg General appearance: PRESENT: morbidly obese, well-developed, well-nourished Head exam: PRESENT: atraumatic, normocephalic Eye exam: PRESENT: EOMI, PERRLA Ear exam: PRESENT: normal external ear exam, TM's normal bilaterally Mouth exam: PRESENT: moist, neck supple Neck exam: PRESENT: full ROM Respiratory exam: PRESENT: decreased breath sounds Cardiovascular exam: PRESENT: irregular rhythm, +S1, +S2 GI/Abdominal exam: PRESENT: normal bowel sounds - Right foot wound- covered with dressing but is healing., soft Neurological exam: PRESENT: alert, oriented to person, oriented to place, oriented to time Psychiatric exam: PRESENT: normal mood Results Laboratory Results: 07/12/16 04:17 07/12/16 04:17 07/12/16 07/12/16 04: 04:17 WBC 6.0 RBC 3.50 L Hgb 8.4 L Hct 27.4 L MCV 78 L MCH 24.2 L MCHC 30.9 L RDW 14.9 H Plt Count 262 Seg Neutrophils % 67.0 Lymphocytes % 18.2 Monocytes % 12.4 Eosinophils % 2.0 Basophils % 0.4 Absolute Neutrophils 4.1 Absolute Lymphocytes 1.1 Absolute Monocytes 0.7 Absolute Eosinophils 0.1 Absolute Basophils 0.0 Sodium 141.6 Potassium 3.8 Chloride 104 Carbon Dioxide 28 Anion Gap 10 BUN 9 Creatinine 1.55 H Est GFR ( Amer) 53 L Est GFR (Non-Af Amer) 44 L Glucose 58 L Calcium 8.5 Total Bilirubin 0.7 AST 49 ALT 53 Alkaline Phosphatase 121 Total Protein 6.7 Albumin 2.7 L 07/09/16 19:32 Toe - Right Fifth Gram Stain - Final 07/09/16 19:32 Toe - Right Fifth Wound Culture - Final Mrsa (Meth Resis Staph Aureus) Proteus Vulgaris Corynebacterium Species No Anaerobic Organisms 07/04/16 07/04/16 07/06/16 07:46 07:46 06:05 Creatine Kinase 2326 H 691 H NT-Pro-B Natriuret Pep 96886 H 07/07/16 07/08/16 05:43 05:43 Creatine Kinase 502 H 355 H NT-Pro-B Natriuret Pep Impressions: Chest X-Ray 07/03/16 16:13 IMPRESSION: No significant interval change. Cardiomegaly with mild pulmonary vascular congestion. No acute consolidations or pleural effusions are identified. Foot X-Ray 07/03/16 16:14 IMPRESSION: EROSIVE CHANGES INVOLVING THE HEAD OF THE 5TH METATARSAL AND BASE OF THE PROXIMAL PHALANX OF THE 5TH TOE. FINDINGS ARE SUSPICIOUS FOR OSTEOMYELITIS, PROBABLY CHRONIC. GENERAL SOFT TISSUE SWELLING. NO ACUTE FINDINGS. Lower Extremity MRI 07/04/16 09:00 IMPRESSION: 5th metatarsal and 5th proximal phalanx osteomyelitis Extensive deep tissue cellulitis right foot without gross evidence of abscess Assessment & Plan - Diagnosis (1) Osteomyelitis of right foot Qualifiers: Chronicity: acute Qualified Code(s): M86.171 - Other acute osteomyelitis, right ankle and foot Is this a current diagnosis for this admission?: YesPlan: Ct with Zosyn 3.375 G IV q6h; IV Vancomycin as per OM protocol; Percocet 5/325 1 Q6H prn; F/u blood and wound cultures; He had repeat debridement and amputation of 5th toe and 5th metatarsal on 07/09/[address] Blankenship. (2) Hypertensive urgency Is this a current diagnosis for this admission?: YesPlan: Ct with Amlodipine 10 mg daily po; Diovan 320 mg daily po; Metoprolol 25 mg BID PO; Clonidine 0.1mg q6h prn po; we will increase Hydralazine to 50 mg q8h PO to optimize BP control. Ct with 2 G sodium diet. (3) Diabetic ketoacidosis Qualifiers: Diabetes mellitus type: type 2 Diabetes mellitus complication detail: without coma Qualified Code(s): E13.10 - Other specified diabetes mellitus with ketoacidosis without coma Is this a current diagnosis for this admission?: YesPlan: Ct with IV fluid normal saline at 125 cc/hr; Slidding scale with humalog insulin [facility] protocol; Lantus insulin 40 iu qhs sucut; 1800 calorie ADA diet. (4) Rhabdomyolysis Qualifiers: Rhabdomyolysis type: non-traumatic Qualified Code(s): M62.82 - Rhabdomyolysis Is this a current diagnosis for this admission?: YesPlan: Ct with IV fluids normal saline at 125cc/hour; Monitor chemistries and CK daily ; Strict input/out put chart. 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 (6) CHF exacerbation Qualifiers: Congestive heart failure type: unspecified congestive heart failure type Qualified Code(s): I50.9 - Heart failure, unspecified Is this a current diagnosis for this admission?: Yes (7) Atrial fibrillation Qualifiers: Atrial fibrillation type: paroxysmal Qualified Code(s): I48.0 - Paroxysmal atrial fibrillation Is this a current diagnosis for this admission?: YesPlan: Ct with Eliquis 5 mg BID po; Metoprolol 25 mg BID po. (8) COPD (chronic obstructive pulmonary disease) Qualifiers: COPD type: unspecified COPD Qualified Code(s): J44.9 - Chronic obstructive pulmonary disease, unspecified Is this a current diagnosis for this admission?: YesPlan: Ct with Duonebs q6h pr; Spiriva 18 mcg daily; Oxygen by N/C 2 L/min. (9) Hypertension Qualifiers: Hypertension type: essential hypertension Qualified Code(s): I10 - Essential (primary) hypertension Is this a current diagnosis for this admission?: Yes (10) Hyperlipidemia Qualifiers: Hyperlipidemia type: unspecified Qualified Code(s): E78.5 - Hyperlipidemia, unspecified Is this a current diagnosis for this admission?: YesPlan: Hold Atorvastatin due to rhabdomyolysis; ct with 200 mg cholesterol diet. (11) Chronic kidney disease (CKD) Is this a current diagnosis for this admission?: YesPlan: Avoid nephrotoxics; daily chemistries; daily wt; strict input/out put chart. (12) Obstructive sleep apnea Is this a current diagnosis for this admission?: YesPlan: Ct with CPAP at night. (13) Iron deficiency anemia Qualifiers: Iron deficiency anemia type: unspecified iron deficiency Qualified Code(s): D50.9 - Iron deficiency anemia, unspecified Is this a current diagnosis for this admission?: YesPlan: Ct with Ferrous sulfate 325 mg BID po; monitor CBC daily. (14) Vitamin D deficiency Is this a current diagnosis for this admission?: YesPlan: Ct with Vitamin D 39398mj weekly. (15) GERD (gastroesophageal reflux disease) Qualifiers: Esophagitis presence: without esophagitis Qualified Code(s): K21.9 - Gastro-esophageal reflux disease without esophagitis Is this a current diagnosis for this admission?: YesPlan: Ct with Prevacid 30 mg daily po. (16) Prostate cancer Is this a current diagnosis for this admission?: NoPlan: Ct with Alfuzosin 10 mg qd po. (17) Morbid obesity Qualifiers: Obesity type: unspecified obesity type Qualified Code(s): E66.01 - Morbid (severe) obesity due to excess calories Is this a current diagnosis for this admission?: YesPlan: Cty with diet/exercise counseling. (18) DVT prophylaxis Is this a current diagnosis for this admission?: YesPlan: Ct with Eliquis 5 mg BID po; SCD.
--- NOTE | 2016-07-12 17:28 | PROGRESS NOTE E ---
Progress Note NAME: CHARLA WEBB : 1935 AGE: 80Y DATE: 07/12/2016 ROOM: [facility] SUBJECTIVE: The patient is without complaints at this time. As noted above, the patient is status post debridement of the right lower extremity foot ulcer x2 by Dr. Blankenship and *------*. OBJECTIVE: VITAL SIGNS: Noted. Blood pressure 161/68, temperature 98.1, pulse 57, respirations 20, saturations 96% on room air. ASSESSMENT: ABOVE, STATUS POST DEBRIDEMENT OF RIGHT LOWER EXTREMITY FOOT ULCER. PLAN: The patient is to be started back on Eliquis, which will be noted for the Internal Medicine physician to resume. DICTATING PHYSICIAN: JONNY SAUER M.D. [id number] PHY#: [id number] ID: [id number] JOB#: [id number] ACCT: [id number] cc: >
[2016-07-12] MEDS: APIXABAN 5 MG TABLET PO SCH (18:06)
[2016-07-12] MEDS: INSULIN GLARGINE,HUM.REC.ANLOG 300 UNIT/3 ML INSULN.PEN SUBCUT SCH (22:55)
[2016-07-13] MEDS: INSULIN LISPRO 100 UNIT/ML 3 ML VIAL SUBCUT PRN ×3 (02:43→22:54)
[2016-07-13] MEDS: HYDRALAZINE HCL 50 MG TABLET PO SCH ×3 (05:07→22:51)
[2016-07-13] MEDS: NORMAL SALINE 1000 ML 1,000 ML IV PRN (05:08)
[2016-07-13 06:07] LABS: ABSOLUTE EOSINOPHILS # (AUTO) 0.1 10^3/uL (0.0-0.6); ABSOLUTE LYMPHOCYTES (AUTO) 0.8 10^3/uL (0.5-4.7); ABSOLUTE MONOCYTES (AUTO) 0.5 10^3/uL (0.1-1.4); ABSOLUTE NEUT (AUTO) 4.2 10^3/uL (1.7-8.2); BASOPHILS % (AUTO) 0.8 % (0-2); HEMATOCRIT 27.7 % (37.9-51.0); HEMOGLOBIN 8.6 g/dL (13.5-17.0); HGB HCT DIFFERENCE -1.9; LYMPHOCYTES % (AUTO) 14.2 % (13-45); MEAN CORPUSCULAR HEMOGLOBIN 24.1 pg (27.0-33.4); MEAN CORPUSCULAR HGB CONC 30.9 g/dL (32.0-36.0); MEAN CORPUSCULAR VOLUME 78 fl (80-97); MONOCYTES % (AUTO) 9.4 % (3-13); RED BLOOD COUNT 3.54 10^6/uL (4.35-5.55); RED CELL DISTRIBUTION WIDTH 15.7 % (11.5-14.0); SEGMENTED NEUTROPHILS % (AUTO) 74.6 % (42-78); WHITE BLOOD COUNT 5.7 10^3/uL (4.0-10.5)
[2016-07-13 06:26] LABS: ALANINE AMINOTRANSFERASE 51 U/L (21-72); ALBUMIN 2.5 g/dL (3.5-5.0); ALKALINE PHOSPHATASE 142 U/L (38-126); ANION GAP 11 (5-19); ASPARTATE AMINO TRANSFERASE 54 U/L (17-59); BILIRUBIN,TOTAL 0.6 mg/dL (0.2-1.3); BLOOD UREA NITROGEN 11 mg/dL (7-20); CALCIUM 8.6 mg/dL (8.4-10.2); CARBON DIOXIDE 26 mmol/L (22-30); CHLORIDE 104 mmol/L (98-107); CREATININE RESULT 1.41 mg/dL (0.52-1.25); GLUCOSE 133 mg/dL (75-110); POTASSIUM 3.7 mmol/L (3.6-5.0); SODIUM 140.6 mmol/L (137-145); TOTAL PROTEIN 6.7 g/dL (6.3-8.2)
[2016-07-13] MEDS: FERROUS SULFATE 325 MG TABLET PO SCH ×2 (08:52→18:23)
[2016-07-13] MEDS: GLIPIZIDE 10 MG TABLET PO SCH (08:53)
[2016-07-13] MEDS: ASPIRIN 325 MG TABLET PO SCH (09:05)
[2016-07-13] MEDS: METOPROLOL TARTRATE 25 MG TABLET PO SCH ×2 (09:06→22:35)
[2016-07-13] MEDS: AMLODIPINE BESYLATE 10 MG TABLET PO SCH (09:06)
[2016-07-13] MEDS: LANSOPRAZOLE 30 MG TAB.RAP.DR PO SCH (09:06)
[2016-07-13] MEDS: APIXABAN 5 MG TABLET PO SCH ×2 (09:07→18:23)
[2016-07-13] MEDS: ISOSORBIDE MONONITRATE 30 MG TAB.ER.24H PO SCH (09:07)
[2016-07-13] MEDS: VALSARTAN 160 MG TABLET PO SCH (09:07)
[2016-07-13] MEDS: BUMETANIDE 1 MG TABLET PO SCH (09:08)
[2016-07-13] MEDS: POTASSIUM CHLORIDE 10 MEQ TABLET.SA PO SCH (09:08)
--- NOTE | 2016-07-13 11:09 | PDOC PROGRESS REPORT ---
Subjective Progress Note for:: 07/13/16 Subjective:: Denies any complaints. Physical Exam Vital Signs: Temp Pulse Resp BP Pulse Ox 98.1 F 57 L 20 168/69 H 100 07/13/16 07:46 07/13/16 07:46 07/13/16 07:46 07/13/16 07:46 07/13/16 07:46 Intake & Output 07/12/16 07/13/16 07/14/16 06:59 06:59 06:59 Intake Total 1771 2734 Output Total 450 Balance 1771 2284 Weight 124.9 kg 125.6 kg General appearance: PRESENT: no acute distress Eye exam: PRESENT: conjunctiva pink. ABSENT: scleral icterus Mouth exam: PRESENT: moist, tongue midline Neck exam: ABSENT: JVD Respiratory exam: PRESENT: clear to auscultation [place]ell. ABSENT: rales, rhonchi, wheezes Cardiovascular exam: PRESENT: RRR. ABSENT: diastolic murmur, rubs, systolic murmur GI/Abdominal exam: PRESENT: normal bowel sounds, soft. ABSENT: distended, guarding, mass, organolmegaly, rebound, tenderness Extremities exam: PRESENT: other - Dressing in place on the right foot.. ABSENT : calf tenderness, clubbing, pedal edema Neurological exam: PRESENT: alert, awake, oriented to person, oriented to place , oriented to time, oriented to situation Psychiatric exam: PRESENT: appropriate affect Skin exam: PRESENT: other Results Laboratory Results: 07/13/16 05:44 07/13/16 05:44 07/13/16 07/13/16 05:44 05:44 WBC 5.7 RBC 3.54 L Hgb 8.6 L Hct 27.7 L MCV 78 L MCH 24.1 L MCHC 30.9 L RDW 15.7 H Plt Count 264 Seg Neutrophils % 74.6 Lymphocytes % 14.2 Monocytes % 9.4 Eosinophils % 1.0 Basophils % 0.8 Absolute Neutrophils 4.2 Absolute Lymphocytes 0.8 Absolute Monocytes 0.5 Absolute Eosinophils 0.1 Absolute Basophils 0.0 Sodium 140.6 Potassium 3.7 Chloride 104 Carbon Dioxide 26 Anion Gap 11 BUN 11 Creatinine 1.41 H Est GFR ( Amer) 59 L Est GFR (Non-Af Amer) 49 L Glucose 133 H Calcium 8.6 Total Bilirubin 0.6 AST 54 ALT 51 Alkaline Phosphatase 142 H Total Protein 6.7 Albumin 2.5 L 07/09/16 19:32 Toe - Right Fifth Gram Stain - Final 07/09/16 19:32 Toe - Right Fifth Wound Culture - Final Mrsa (Meth Resis Staph Aureus) Proteus Vulgaris Corynebacterium Species No Anaerobic Organisms 07/04/16 07/04/16 07/06/16 07:46 07:46 06:05 Creatine Kinase 2326 H 691 H NT-Pro-B Natriuret Pep [id number] H 07/07/16 07/08/16 05:43 05:43 Creatine Kinase 502 H 355 H NT-Pro-B Natriuret Pep Impressions: Chest X-Ray 07/03/16 16:13 IMPRESSION: No significant interval change. Cardiomegaly with mild pulmonary vascular congestion. No acute consolidations or pleural effusions are identified. Foot X-Ray 07/03/16 16:14 IMPRESSION: EROSIVE CHANGES INVOLVING THE HEAD OF THE 5TH METATARSAL AND BASE OF THE PROXIMAL PHALANX OF THE 5TH TOE. FINDINGS ARE SUSPICIOUS FOR OSTEOMYELITIS, PROBABLY CHRONIC. GENERAL SOFT TISSUE SWELLING. NO ACUTE FINDINGS. Lower Extremity MRI 07/04/16 09:00 IMPRESSION: 5th metatarsal and 5th proximal phalanx osteomyelitis Extensive deep tissue cellulitis right foot without gross evidence of abscess Assessment & Plan - Diagnosis (1) Osteomyelitis of right foot Qualifiers: Chronicity: acute Qualified Code(s): M86.171 - Other acute osteomyelitis, right ankle and foot Is this a current diagnosis for this admission?: YesPlan: Patient has had amputation of the fifth toe on the right. We'll continue with the vancomycin and Zosyn for treatment of the osteomyelitis. (2) Rhabdomyolysis Qualifiers: Rhabdomyolysis type: non-traumatic Qualified Code(s): M62.82 - Rhabdomyolysis Is this a current diagnosis for this admission?: YesPlan: Resolving. (3) Acute on chronic diastolic congestive heart failure Is this a current diagnosis for this admission?: YesPlan: Patient is euvolemic on exam today. (4) Atrial fibrillation Qualifiers: Atrial fibrillation type: paroxysmal Qualified Code(s): I48.0 - Paroxysmal atrial fibrillation Is this a current diagnosis for this admission?: YesPlan: Patient is rate controlled today. (5) GERD (gastroesophageal reflux disease) Qualifiers: Esophagitis presence: without esophagitis Qualified Code(s): K21.9 - Gastro-esophageal reflux disease without esophagitis Is this a current diagnosis for this admission?: Yes (6) Hyperlipidemia Qualifiers: Hyperlipidemia type: unspecified Qualified Code(s): E78.5 - Hyperlipidemia, unspecified Is this a current diagnosis for this admission?: Yes (7) Hypokalemia Is this a current diagnosis for this admission?: YesPlan: Resolved. (8) Morbid obesity Qualifiers: Obesity type: unspecified obesity type Qualified Code(s): E66.01 - Morbid (severe) obesity due to excess calories Is this a current diagnosis for this admission?: Yes (9) Obstructive sleep apnea Is this a current diagnosis for this admission?: YesPlan: Continue CPAP daily at bedtime (10) Type 2 diabetes mellitus with hyperglycemia Qualifiers: Diabetes mellitus buttermaker helper insulin use: unspecified jail insulin use status Qualified Code(s): E11.65 - Type 2 diabetes mellitus with hyperglycemia Is this a current diagnosis for this admission?: YesPlan: Continue with his Lantus, glipizide and sliding scale insulin. (11) Gout Qualifiers: Gout site: unspecified site Gout etiology: unspecified cause Chronicity: unspecified Qualified Code(s): M10.9 - Gout, unspecified Is this a current diagnosis for this admission?: YesPlan: Asymptomatic (12) Hypertension Qualifiers: Hypertension type: essential hypertension Qualified Code(s): I10 - Essential (primary) hypertension Is this a current diagnosis for this admission?: YesPlan: Patient's blood pressure is elevated in spite of being on Diovan, Lopressor, clonidine, Norvasc, hydralazine. (13) COPD (chronic obstructive pulmonary disease) Qualifiers: COPD type: unspecified COPD Qualified Code(s): J44.9 - Chronic obstructive pulmonary disease, unspecified Is this a current diagnosis for this admission?: YesPlan: Stable. (14) Chronic kidney disease (CKD) Is this a current diagnosis for this admission?: YesPlan: His creatinine is elevated at 1.4 but this appears to be his baseline. - Time Time Spent with patient: 25-34 minutes - Inpatient Certification Medical Necessity: Need for IV Antibiotics
[2016-07-13] MEDS ORDERED: VANCOMYCIN HCL 1,250 MG in DEXTROSE 5%-WATER 250 ML IV ONE (13:45)
[2016-07-13] MEDS: TIOTROPIUM BROMIDE DPI 5 CAP/KIT (18 MCG/CAP) IH SCH (14:20)
[2016-07-13] MEDS: PIPERACILLIN SODIUM/TAZOBACTAM 3.375 GM in NORMAL SALINE 100 ML IV SCH (18:23)
[2016-07-13 22:35] LABS: CREATININE RESULT 1.54 mg/dL (0.52-1.25)
[2016-07-13] MEDS: INSULIN GLARGINE,HUM.REC.ANLOG 300 UNIT/3 ML INSULN.PEN SUBCUT SCH (22:48)
[2016-07-13] MEDS: VANCOMYCIN HCL 1,250 MG in DEXTROSE 5%-WATER 250 ML IV SCH (22:52)
[2016-07-14] MEDS: PIPERACILLIN SODIUM/TAZOBACTAM 3.375 GM in NORMAL SALINE 100 ML IV SCH ×4 (01:11→19:00)
[2016-07-14] MEDS: NORMAL SALINE 1000 ML 1,000 ML IV PRN (01:12)
[2016-07-14] MEDS: CLONIDINE HCL 0.1 MG TABLET PO PRN (02:02)
[2016-07-14] MEDS: HYDRALAZINE HCL 50 MG TABLET PO SCH ×3 (05:40→23:00)
[2016-07-14 05:45] LABS: ABSOLUTE EOSINOPHILS # (AUTO) 0.1 10^3/uL (0.0-0.6); ABSOLUTE LYMPHOCYTES (AUTO) 0.5 10^3/uL (0.5-4.7); ABSOLUTE MONOCYTES (AUTO) 0.4 10^3/uL (0.1-1.4); ABSOLUTE NEUT (AUTO) 3.7 10^3/uL (1.7-8.2); BASOPHILS % (AUTO) 0.7 % (0-2); EOSINOPHILS % (AUTO) 1.3 % (0-6); HEMOGLOBIN 8.3 g/dL (13.5-17.0); HGB HCT DIFFERENCE -1.1; LYMPHOCYTES % (AUTO) 11.1 % (13-45); MEAN CORPUSCULAR HEMOGLOBIN 24.7 pg (27.0-33.4); MEAN CORPUSCULAR HGB CONC 31.9 g/dL (32.0-36.0); MEAN CORPUSCULAR VOLUME 77 fl (80-97); MONOCYTES % (AUTO) 9.1 % (3-13); RED BLOOD COUNT 3.36 10^6/uL (4.35-5.55); RED CELL DISTRIBUTION WIDTH 15.3 % (11.5-14.0); SEGMENTED NEUTROPHILS % (AUTO) 77.8 % (42-78); WHITE BLOOD COUNT 4.8 10^3/uL (4.0-10.5)
[2016-07-14 06:16] LABS: ALANINE AMINOTRANSFERASE 50 U/L (21-72); ALBUMIN 2.7 g/dL (3.5-5.0); ALKALINE PHOSPHATASE 126 U/L (38-126); ANION GAP 10 (5-19); ASPARTATE AMINO TRANSFERASE 39 U/L (17-59); BILIRUBIN,TOTAL 0.5 mg/dL (0.2-1.3); BLOOD UREA NITROGEN 10 mg/dL (7-20); CALCIUM 8.4 mg/dL (8.4-10.2); CARBON DIOXIDE 28 mmol/L (22-30); CHLORIDE 104 mmol/L (98-107); CREATININE RESULT 1.48 mg/dL (0.52-1.25); GLUCOSE 166 mg/dL (75-110); POTASSIUM 3.7 mmol/L (3.6-5.0); SODIUM 141.7 mmol/L (137-145); TOTAL PROTEIN 6.3 g/dL (6.3-8.2)
[2016-07-14] MEDS: FERROUS SULFATE 325 MG TABLET PO SCH ×2 (08:56→19:00)
[2016-07-14] MEDS: GLIPIZIDE 10 MG TABLET PO SCH (08:57)
[2016-07-14] MEDS: VANCOMYCIN HCL 1,250 MG in DEXTROSE 5%-WATER 250 ML IV SCH ×2 (10:30→23:02)
[2016-07-14] MEDS: BUMETANIDE 1 MG TABLET PO SCH (10:31)
[2016-07-14] MEDS: METOPROLOL TARTRATE 25 MG TABLET PO SCH ×2 (10:32→23:01)
[2016-07-14] MEDS: POTASSIUM CHLORIDE 10 MEQ TABLET.SA PO SCH (10:32)
[2016-07-14] MEDS: VALSARTAN 160 MG TABLET PO SCH (10:32)
[2016-07-14] MEDS: ISOSORBIDE MONONITRATE 30 MG TAB.ER.24H PO SCH (10:32)
[2016-07-14] MEDS: APIXABAN 5 MG TABLET PO SCH ×2 (10:33→18:59)
[2016-07-14] MEDS: ASPIRIN 325 MG TABLET PO SCH (10:33)
[2016-07-14] MEDS: LANSOPRAZOLE 30 MG TAB.RAP.DR PO SCH (10:33)
[2016-07-14] MEDS: TIOTROPIUM BROMIDE DPI 5 CAP/KIT (18 MCG/CAP) IH SCH (10:33)
[2016-07-14] MEDS: AMLODIPINE BESYLATE 10 MG TABLET PO SCH (10:41)
--- NOTE | 2016-07-14 11:58 | PDOC PROGRESS REPORT ---
Subjective Progress Note for:: 07/14/16 Subjective:: Denies any complaints. Physical Exam Vital Signs: Temp Pulse Resp BP Pulse Ox 97.8 F 57 L 24 H 160/62 H 100 07/14/16 07:58 07/14/16 07:58 07/14/16 07:58 07/14/16 07:58 07/14/16 07:58 Intake & Output 07/13/16 07/14/16 07/15/16 06:59 06:59 06:59 Intake Total 2734 2962 Output Total 450 1175 Balance 2284 1787 Weight 125.6 kg 125.8 kg General appearance: PRESENT: no acute distress Eye exam: PRESENT: conjunctiva pink. ABSENT: scleral icterus Ear exam: PRESENT: normal external ear exam Mouth exam: PRESENT: moist, tongue midline Neck exam: ABSENT: JVD Respiratory exam: PRESENT: clear to auscultation cornell. ABSENT: rales, rhonchi, wheezes Cardiovascular exam: PRESENT: RRR. ABSENT: diastolic murmur, rubs, systolic murmur GI/Abdominal exam: PRESENT: normal bowel sounds, soft. ABSENT: distended, guarding, mass, organolmegaly, rebound, tenderness Extremities exam: PRESENT: other - Dressing in place on the foot Neurological exam: PRESENT: alert, awake, oriented to person, oriented to place , oriented to time, oriented to situation Psychiatric exam: PRESENT: appropriate affect Skin exam: PRESENT: other - Dressing in place on his foot Results Laboratory Results: 07/14/16 04:58 07/14/16 04:58 07/13/16 07/14/16 07/14/16 21:45 04:58 04:58 WBC 4.8 RBC 3.36 L Hgb 8.3 L Hct 26.0 L MCV 77 L MCH 24.7 L MCHC 31.9 L RDW 15.3 H Plt Count 234 Seg Neutrophils % 77.8 Lymphocytes % 11.1 L Monocytes % 9.1 Eosinophils % 1.3 Basophils % 0.7 Absolute Neutrophils 3.7 Absolute Lymphocytes 0.5 Absolute Monocytes 0.4 Absolute Eosinophils 0.1 Absolute Basophils 0.0 Sodium 141.7 Potassium 3.7 Chloride 104 Carbon Dioxide 28 Anion Gap 10 BUN 10 Creatinine 1.54 H 1.48 H Est GFR ( Amer) 53 L 56 L Est GFR (Non-Af Amer) 44 L 46 L Glucose 166 H Calcium 8.4 Total Bilirubin 0.5 AST 39 ALT 50 Alkaline Phosphatase 126 Total Protein 6.3 Albumin 2.7 L 07/09/16 19:32 Toe - Right Fifth Gram Stain - Final 07/09/16 19:32 Toe - Right Fifth Wound Culture - Final Mrsa (Meth Resis Staph Aureus) Proteus Vulgaris Corynebacterium Species No Anaerobic Organisms 07/04/16 07/04/16 07/06/16 07:46 07:46 06:05 Creatine Kinase 2326 H 691 H NT-Pro-B Natriuret Pep 16945 H 07/07/16 07/08/16 05:43 05:43 Creatine Kinase 502 H 355 H NT-Pro-B Natriuret Pep Impressions: Chest X-Ray 07/03/16 16:13 IMPRESSION: No significant interval change. Cardiomegaly with mild pulmonary vascular congestion. No acute consolidations or pleural effusions are identified. Foot X-Ray 07/03/16 16:14 IMPRESSION: EROSIVE CHANGES INVOLVING THE HEAD OF THE 5TH METATARSAL AND BASE OF THE PROXIMAL PHALANX OF THE 5TH TOE. FINDINGS ARE SUSPICIOUS FOR OSTEOMYELITIS, PROBABLY CHRONIC. GENERAL SOFT TISSUE SWELLING. NO ACUTE FINDINGS. Lower Extremity MRI 07/04/16 09:00 IMPRESSION: 5th metatarsal and 5th proximal phalanx osteomyelitis Extensive deep tissue cellulitis right foot without gross evidence of abscess Assessment & Plan - Diagnosis (1) Osteomyelitis of right foot Qualifiers: Chronicity: acute Qualified Code(s): M86.171 - Other acute osteomyelitis, right ankle and foot Is this a current diagnosis for this admission?: YesPlan: Patient has had amputation of the fifth toe on the right. We'll continue with the vancomycin and Zosyn for treatment of the osteomyelitis. (2) Rhabdomyolysis Qualifiers: Rhabdomyolysis type: non-traumatic Qualified Code(s): M62.82 - Rhabdomyolysis Is this a current diagnosis for this admission?: YesPlan: Resolving. (3) Acute on chronic diastolic congestive heart failure Is this a current diagnosis for this admission?: YesPlan: Patient is euvolemic on exam today. (4) Atrial fibrillation Qualifiers: Atrial fibrillation type: paroxysmal Qualified Code(s): I48.0 - Paroxysmal atrial fibrillation Is this a current diagnosis for this admission?: YesPlan: Patient is rate controlled today. (5) GERD (gastroesophageal reflux disease) Qualifiers: Esophagitis presence: without esophagitis Qualified Code(s): K21.9 - Gastro-esophageal reflux disease without esophagitis Is this a current diagnosis for this admission?: Yes (6) Hyperlipidemia Qualifiers: Hyperlipidemia type: unspecified Qualified Code(s): E78.5 - Hyperlipidemia, unspecified Is this a current diagnosis for this admission?: Yes (7) Hypokalemia Is this a current diagnosis for this admission?: YesPlan: Resolved. (8) Morbid obesity Qualifiers: Obesity type: unspecified obesity type Qualified Code(s): E66.01 - Morbid (severe) obesity due to excess calories Is this a current diagnosis for this admission?: Yes (9) Obstructive sleep apnea Is this a current diagnosis for this admission?: YesPlan: Continue CPAP daily at bedtime (10) Type 2 diabetes mellitus with hyperglycemia Qualifiers: Diabetes mellitus senior living insulin use: unspecified termite inspector insulin use status Qualified Code(s): E11.65 - Type 2 diabetes mellitus with hyperglycemia Is this a current diagnosis for this admission?: YesPlan: Continue with his Lantus, glipizide and sliding scale insulin. (11) Gout Qualifiers: Gout site: unspecified site Gout etiology: unspecified cause Chronicity: unspecified Qualified Code(s): M10.9 - Gout, unspecified Is this a current diagnosis for this admission?: YesPlan: Asymptomatic (12) Hypertension Qualifiers: Hypertension type: essential hypertension Qualified Code(s): I10 - Essential (primary) hypertension Is this a current diagnosis for this admission?: YesPlan: Patient's blood pressure is elevated in spite of being on Diovan, Lopressor, clonidine, Norvasc, hydralazine. (13) COPD (chronic obstructive pulmonary disease) Qualifiers: COPD type: unspecified COPD Qualified Code(s): J44.9 - Chronic obstructive pulmonary disease, unspecified Is this a current diagnosis for this admission?: YesPlan: Stable. (14) Chronic kidney disease (CKD) Is this a current diagnosis for this admission?: YesPlan: His creatinine is elevated at 1.4 but this appears to be his baseline. - Time Time Spent with patient: 25-34 minutes - Inpatient Certification Medical Necessity: Need for IV Antibiotics
[2016-07-14] MEDS: INSULIN LISPRO 100 UNIT/ML 3 ML VIAL SUBCUT PRN (12:54)
--- NOTE | 2016-07-14 19:43 | PROGRESS NOTE E ---
Progress Note NAME: CHARLA WEBB : 1935 AGE: 80Y DATE: 07/14/2016 ROOM: 326 SUBJECTIVE: The patient remains somnolent throughout my visits each day. He has not received any narcotics. OBJECTIVE: VITAL SIGNS: Blood pressure 142/58. Temperature 97.8. Pulse 56. Respirations 22. Saturations 100%. EXTREMITIES: The patient's dressing on the right foot ulcer has not been changed today as of yet. Nurses report no changes in the wound. ASSESSMENT: THE PATIENT IS STATUS POST DEBRIDEMENT X2 BY DR. GONZALEZ. PLAN: The patient's Eliquis has been resumed, and his right foot ulcer will be inspected in the a.m. for any adjustment in the wound care. DICTATING PHYSICIAN: JONNY SAUER M.D. [id number] PHY#: [id number] ID: [id number] JOB#: [id number] ACCT: [id number] cc:JONNY SAUER M.D. >
[2016-07-14 22:18] LABS: CREATININE RESULT 1.73 mg/dL (0.52-1.25)
[2016-07-14] MEDS: INSULIN GLARGINE,HUM.REC.ANLOG 300 UNIT/3 ML INSULN.PEN SUBCUT SCH (23:04)
[2016-07-15] MEDS: PIPERACILLIN SODIUM/TAZOBACTAM 3.375 GM in NORMAL SALINE 100 ML IV SCH ×4 (00:54→17:55)
[2016-07-15] MEDS: NORMAL SALINE 1000 ML 1,000 ML IV PRN (00:55)
[2016-07-15 05:32] LABS: ABSOLUTE EOSINOPHILS # (AUTO) 0.1 10^3/uL (0.0-0.6); ABSOLUTE LYMPHOCYTES (AUTO) 0.9 10^3/uL (0.5-4.7); ABSOLUTE MONOCYTES (AUTO) 0.5 10^3/uL (0.1-1.4); ABSOLUTE NEUT (AUTO) 3.9 10^3/uL (1.7-8.2); BASOPHILS % (AUTO) 0.7 % (0-2); EOSINOPHILS % (AUTO) 1.5 % (0-6); HEMATOCRIT 28.9 % (37.9-51.0); HEMOGLOBIN 8.9 g/dL (13.5-17.0); HGB HCT DIFFERENCE -2.2; LYMPHOCYTES % (AUTO) 16.7 % (13-45); MEAN CORPUSCULAR HEMOGLOBIN 24.2 pg (27.0-33.4); MEAN CORPUSCULAR HGB CONC 30.8 g/dL (32.0-36.0); MEAN CORPUSCULAR VOLUME 79 fl (80-97); MONOCYTES % (AUTO) 8.8 % (3-13); RED BLOOD COUNT 3.67 10^6/uL (4.35-5.55); RED CELL DISTRIBUTION WIDTH 15.8 % (11.5-14.0); SEGMENTED NEUTROPHILS % (AUTO) 72.3 % (42-78); WHITE BLOOD COUNT 5.4 10^3/uL (4.0-10.5)
[2016-07-15 05:52] LABS: ANION GAP 10 (5-19); BLOOD UREA NITROGEN 9 mg/dL (7-20); CALCIUM 8.6 mg/dL (8.4-10.2); CARBON DIOXIDE 30 mmol/L (22-30); CHLORIDE 104 mmol/L (98-107); CREATININE RESULT 1.76 mg/dL (0.52-1.25); GLUCOSE 101 mg/dL (75-110); POTASSIUM 4.1 mmol/L (3.6-5.0); SODIUM 143.7 mmol/L (137-145)
[2016-07-15] MEDS: HYDRALAZINE HCL 50 MG TABLET PO SCH ×3 (06:53→23:05)
[2016-07-15] MEDS: FERROUS SULFATE 325 MG TABLET PO SCH ×2 (08:33→17:56)
[2016-07-15] MEDS: GLIPIZIDE 10 MG TABLET PO SCH (08:33)
[2016-07-15] MEDS: TIOTROPIUM BROMIDE DPI 5 CAP/KIT (18 MCG/CAP) IH SCH (10:39)
[2016-07-15] MEDS: ERGOCALCIFEROL (VITAMIN D2) 50000 UNIT (1.25 MG) CAPSULE PO SCH (10:39)
[2016-07-15] MEDS: VALSARTAN 160 MG TABLET PO SCH (10:39)
[2016-07-15] MEDS: AMLODIPINE BESYLATE 10 MG TABLET PO SCH (10:39)
[2016-07-15] MEDS: APIXABAN 5 MG TABLET PO SCH ×2 (10:39→17:56)
[2016-07-15] MEDS: BUMETANIDE 1 MG TABLET PO SCH (10:39)
[2016-07-15] MEDS: ISOSORBIDE MONONITRATE 30 MG TAB.ER.24H PO SCH (10:39)
[2016-07-15] MEDS: LANSOPRAZOLE 30 MG TAB.RAP.DR PO SCH (10:39)
[2016-07-15] MEDS: POTASSIUM CHLORIDE 10 MEQ TABLET.SA PO SCH (10:39)
[2016-07-15] MEDS: ASPIRIN 325 MG TABLET PO SCH (10:39)
[2016-07-15] MEDS: METOPROLOL TARTRATE 25 MG TABLET PO SCH ×2 (10:39→23:05)
--- NOTE | 2016-07-15 17:03 | PDOC PROGRESS REPORT ---
Subjective Progress Note for:: 07/15/16 Subjective:: He had debridement of right foot ulcer on 07/04/2016. He is feeling much better and his BP is still uncontrolled. We restarted his Valsartan 320 mg qd and Metoprolol 25 mg BID; add Clonidine 0.1mg q6h prn. F/u PT/OT consult. F/u Gen. surgery for wound mgt. We increased Hydralazine 100 mg q8h PO to help optimize BP control. He had repeat debridement and amputation of right 5th toe and partial excision of 5th metatarsal on 07/09/2016. Physical Exam Vital Signs: Temp Pulse Resp BP Pulse Ox 97.4 F 65 18 176/73 H 99 07/15/16 15:10 07/15/16 15:10 07/15/16 15:10 07/15/16 15:10 07/15/16 15:10 Intake & Output 07/14/16 07/15/16 07/16/16 06:59 06:59 06:59 Intake Total 2962 2910 473 Output Total 1175 500 200 Balance 1787 2410 273 Weight 125.8 kg 129 kg General appearance: PRESENT: no acute distress, morbidly obese, well-developed, well-nourished Head exam: PRESENT: atraumatic, normocephalic Eye exam: PRESENT: EOMI, PERRLA Ear exam: PRESENT: TM's normal bilaterally Mouth exam: PRESENT: moist, tongue midline Respiratory exam: PRESENT: decreased breath sounds, symmetrical Cardiovascular exam: PRESENT: irregular rhythm, +S1, +S2 GI/Abdominal exam: PRESENT: normal bowel sounds, soft Neurological exam: PRESENT: alert, awake, oriented to person, oriented to place , oriented to time Psychiatric exam: PRESENT: normal mood Results Laboratory Results: 07/15/16 04:40 07/15/16 04:40 07/14/16 07/15/16 07/15/16 21:30 04:40 04:40 WBC 5.4 RBC 3.67 L Hgb 8.9 L Hct 28.9 L MCV 79 L MCH 24.2 L MCHC 30.8 L RDW 15.8 H Plt Count 229 Seg Neutrophils % 72.3 Lymphocytes % 16.7 Monocytes % 8.8 Eosinophils % 1.5 Basophils % 0.7 Absolute Neutrophils 3.9 Absolute Lymphocytes 0.9 Absolute Monocytes 0.5 Absolute Eosinophils 0.1 Absolute Basophils 0.0 Sodium 143.7 Potassium 4.1 Chloride 104 Carbon Dioxide 30 Anion Gap 10 BUN 9 Creatinine 1.73 H 1.76 H Est GFR ( Amer) 46 L 46 L Est GFR (Non-Af Amer) 38 L 38 L Glucose 101 Calcium 8.6 07/04/16 07/04/16 07/06/16 07:46 07:46 06:05 Creatine Kinase 2326 H 691 H NT-Pro-B Natriuret Pep 92467 H 07/07/16 07/08/16 05:43 05:43 Creatine Kinase 502 H 355 H NT-Pro-B Natriuret Pep Impressions: Chest X-Ray 07/03/16 16:13 IMPRESSION: No significant interval change. Cardiomegaly with mild pulmonary vascular congestion. No acute consolidations or pleural effusions are identified. Foot X-Ray 07/03/16 16:14 IMPRESSION: EROSIVE CHANGES INVOLVING THE HEAD OF THE 5TH METATARSAL AND BASE OF THE PROXIMAL PHALANX OF THE 5TH TOE. FINDINGS ARE SUSPICIOUS FOR OSTEOMYELITIS, PROBABLY CHRONIC. GENERAL SOFT TISSUE SWELLING. NO ACUTE FINDINGS. Lower Extremity MRI 07/04/16 09:00 IMPRESSION: 5th metatarsal and 5th proximal phalanx osteomyelitis Extensive deep tissue cellulitis right foot without gross evidence of abscess Assessment & Plan - Diagnosis (1) Osteomyelitis of right foot Qualifiers: Chronicity: acute Qualified Code(s): M86.171 - Other acute osteomyelitis, right ankle and foot Is this a current diagnosis for this admission?: YesPlan: Ct with Zosyn 3.375 G IV q6h; IV Vancomycin as per [facility] protocol; Percocet 5/325 1 Q6H prn; F/u blood and wound cultures; He had repeat debridement and amputation of 5th toe and 5th metatarsal on 07/09/[address] Blankenship. (2) Hypertensive urgency Is this a current diagnosis for this admission?: YesPlan: Ct with Amlodipine 10 mg daily po; Diovan 320 mg daily po; Metoprolol 25 mg BID PO; Clonidine 0.1mg q6h prn po; we will increase Hydralazine to 100 mg q8h PO to optimize BP control. Ct with 2 G sodium diet. (3) Diabetic ketoacidosis Qualifiers: Diabetes mellitus type: type 2 Diabetes mellitus complication detail: without coma Qualified Code(s): E13.10 - Other specified diabetes mellitus with ketoacidosis without coma Is this a current diagnosis for this admission?: YesPlan: Ct with IV fluid normal saline at 125 cc/hr; Slidding scale with humalog insulin [facility] protocol; Lantus insulin 40 iu qhs sucut; 1800 calorie ADA diet. (4) Rhabdomyolysis Qualifiers: Rhabdomyolysis type: non-traumatic Qualified Code(s): M62.82 - Rhabdomyolysis Is this a current diagnosis for this admission?: YesPlan: Ct with IV fluids normal saline at 125cc/hour; Monitor chemistries and CK daily ; Strict input/out put chart. 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 (6) CHF exacerbation Qualifiers: Congestive heart failure type: unspecified congestive heart failure type Qualified Code(s): I50.9 - Heart failure, unspecified Is this a current diagnosis for this admission?: Yes (7) Atrial fibrillation Qualifiers: Atrial fibrillation type: paroxysmal Qualified Code(s): I48.0 - Paroxysmal atrial fibrillation Is this a current diagnosis for this admission?: YesPlan: Ct with Eliquis 5 mg BID po; Metoprolol 25 mg BID po. (8) COPD (chronic obstructive pulmonary disease) Qualifiers: COPD type: unspecified COPD Qualified Code(s): J44.9 - Chronic obstructive pulmonary disease, unspecified Is this a current diagnosis for this admission?: YesPlan: Ct with Duonebs q6h pr; Spiriva 18 mcg daily; Oxygen by N/C 2 L/min. (9) Hypertension Qualifiers: Hypertension type: essential hypertension Qualified Code(s): I10 - Essential (primary) hypertension Is this a current diagnosis for this admission?: Yes (10) Hyperlipidemia Qualifiers: Hyperlipidemia type: unspecified Qualified Code(s): E78.5 - Hyperlipidemia, unspecified Is this a current diagnosis for this admission?: YesPlan: Hold Atorvastatin due to rhabdomyolysis; ct with 200 mg cholesterol diet. (11) Chronic kidney disease (CKD) Is this a current diagnosis for this admission?: YesPlan: Avoid nephrotoxics; daily chemistries; daily wt; strict input/out put chart. (12) Obstructive sleep apnea Is this a current diagnosis for this admission?: YesPlan: Ct with CPAP at night. (13) Iron deficiency anemia Qualifiers: Iron deficiency anemia type: unspecified iron deficiency Qualified Code(s): D50.9 - Iron deficiency anemia, unspecified Is this a current diagnosis for this admission?: YesPlan: Ct with Ferrous sulfate 325 mg BID po; monitor CBC daily. (14) Vitamin D deficiency Is this a current diagnosis for this admission?: YesPlan: Ct with Vitamin D 49578em weekly. (15) GERD (gastroesophageal reflux disease) Qualifiers: Esophagitis presence: without esophagitis Qualified Code(s): K21.9 - Gastro-esophageal reflux disease without esophagitis Is this a current diagnosis for this admission?: YesPlan: Ct with Prevacid 30 mg daily po. (16) Prostate cancer Is this a current diagnosis for this admission?: NoPlan: Ct with Alfuzosin 10 mg qd po. (17) Morbid obesity Qualifiers: Obesity type: unspecified obesity type Qualified Code(s): E66.01 - Morbid (severe) obesity due to excess calories Is this a current diagnosis for this admission?: YesPlan: Cty with diet/exercise counseling. (18) DVT prophylaxis Is this a current diagnosis for this admission?: YesPlan: Ct with Eliquis 5 mg BID po; SCD.
--- NOTE | 2016-07-15 21:01 | Operative Report ---
Nonrecallable Operative Report DATE OF SURGERY: 07/15/16 PREOPERATIVE DIAGNOSIS: Open Right Foot wound POSTOPERATIVE DIAGNOSIS: same with necrotis tissue, tendon OPERATION: Sharp debridement right foot including skin, tendons, SQ tissue SURGEON: [employer] ANESTHESIA: Other - none TISSUE REMOVED OR ALTERED: skin, fascia, tendon COMPLICATIONS: none ESTIMATED BLOOD LOSS: scant INTRAOPERATIVE FINDINGS: see below PROCEDURE: Consent provided. Right foot elevated, exposed. Timeout conducted. RIght foot sharply debrided of skin, eschar, and tendon with knife and tenotomy scissors. Tissue was on the lateral and plantar aspects of the exposed wound. There are pockets exposing the lateral aspect of the right third toe, and the deeper plantar bed. Amount of tissue debrided was approximately 3 x 2 x 2 cm. Wound irrigated, dressed with wet-to-dry dressing. Plan: 1. Anticipate VAC placement tomorrow.
[2016-07-15] MEDS: INSULIN GLARGINE,HUM.REC.ANLOG 300 UNIT/3 ML INSULN.PEN SUBCUT SCH (23:04)
[2016-07-15] MEDS: INSULIN LISPRO 100 UNIT/ML 3 ML VIAL SUBCUT PRN (23:04)
[2016-07-15] MEDS: VANCOMYCIN HCL 1,500 MG in DEXTROSE 5%-WATER 250 ML IV SCH (23:04)
[2016-07-16] MEDS: PIPERACILLIN SODIUM/TAZOBACTAM 3.375 GM in NORMAL SALINE 100 ML IV SCH ×4 (01:22→17:16)
[2016-07-16 06:36] LABS: ABSOLUTE BASOPHILS # (AUTO) 0.1 10^3/uL (0.0-0.2); ABSOLUTE EOSINOPHILS # (AUTO) 0.1 10^3/uL (0.0-0.6); ABSOLUTE LYMPHOCYTES (AUTO) 0.9 10^3/uL (0.5-4.7); ABSOLUTE MONOCYTES (AUTO) 0.6 10^3/uL (0.1-1.4); ABSOLUTE NEUT (AUTO) 4.1 10^3/uL (1.7-8.2); BASOPHILS % (AUTO) 1.2 % (0-2); EOSINOPHILS % (AUTO) 0.9 % (0-6); HEMATOCRIT 27.5 % (37.9-51.0); HEMOGLOBIN 8.8 g/dL (13.5-17.0); HGB HCT DIFFERENCE -1.1; LYMPHOCYTES % (AUTO) 15.9 % (13-45); MEAN CORPUSCULAR HEMOGLOBIN 24.8 pg (27.0-33.4); MEAN CORPUSCULAR VOLUME 78 fl (80-97); MONOCYTES % (AUTO) 11.1 % (3-13); RED BLOOD COUNT 3.55 10^6/uL (4.35-5.55); RED CELL DISTRIBUTION WIDTH 15.8 % (11.5-14.0); SEGMENTED NEUTROPHILS % (AUTO) 70.9 % (42-78); WHITE BLOOD COUNT 5.8 10^3/uL (4.0-10.5)
[2016-07-16] MEDS: HYDRALAZINE HCL 50 MG TABLET PO SCH ×3 (06:50→22:30)
[2016-07-16 07:58] LABS: ALANINE AMINOTRANSFERASE 52 U/L (21-72); ALBUMIN 2.8 g/dL (3.5-5.0); ALKALINE PHOSPHATASE 136 U/L (38-126); ANION GAP 11 (5-19); ASPARTATE AMINO TRANSFERASE 46 U/L (17-59); BLOOD UREA NITROGEN 11 mg/dL (7-20); CALCIUM 8.9 mg/dL (8.4-10.2); CARBON DIOXIDE 29 mmol/L (22-30); CHLORIDE 103 mmol/L (98-107); CREATININE RESULT 1.71 mg/dL (0.52-1.25); GLUCOSE 130 mg/dL (75-110); POTASSIUM 4.1 mmol/L (3.6-5.0); SODIUM 142.5 mmol/L (137-145); TOTAL PROTEIN 7.2 g/dL (6.3-8.2)
[2016-07-16] MEDS: NORMAL SALINE 1000 ML 1,000 ML IV PRN (09:09)
[2016-07-16] MEDS: TIOTROPIUM BROMIDE DPI 5 CAP/KIT (18 MCG/CAP) IH SCH (09:09)
[2016-07-16] MEDS: BUMETANIDE 1 MG TABLET PO SCH (09:10)
[2016-07-16] MEDS: GLIPIZIDE 10 MG TABLET PO SCH (09:10)
[2016-07-16] MEDS: LANSOPRAZOLE 30 MG TAB.RAP.DR PO SCH (09:10)
[2016-07-16] MEDS: POTASSIUM CHLORIDE 10 MEQ TABLET.SA PO SCH (09:10)
[2016-07-16] MEDS: APIXABAN 5 MG TABLET PO SCH ×2 (09:11→17:16)
[2016-07-16] MEDS: ASPIRIN 325 MG TABLET PO SCH (09:11)
[2016-07-16] MEDS: AMLODIPINE BESYLATE 10 MG TABLET PO SCH (09:11)
[2016-07-16] MEDS: METOPROLOL TARTRATE 25 MG TABLET PO SCH ×2 (09:11→22:30)
[2016-07-16] MEDS: VALSARTAN 160 MG TABLET PO SCH (09:11)
[2016-07-16] MEDS: ISOSORBIDE MONONITRATE 30 MG TAB.ER.24H PO SCH (09:11)
[2016-07-16] MEDS: FERROUS SULFATE 325 MG TABLET PO SCH ×2 (09:11→17:16)
[2016-07-16] MEDS: INSULIN LISPRO 100 UNIT/ML 3 ML VIAL SUBCUT PRN ×3 (11:51→22:30)
--- NOTE | 2016-07-16 17:03 | PDOC PROGRESS REPORT ---
Subjective Progress Note for:: 07/16/16 Subjective:: He had debridement of right foot ulcer on 07/04/2016. He is feeling much better and his BP is still uncontrolled. We restarted his Valsartan 320 mg qd and Metoprolol 25 mg BID; add Clonidine 0.1mg q6h prn. F/u PT/OT consult. F/u Gen. surgery for wound mgt. We increased Hydralazine 100 mg q8h PO to help optimize BP control. He had repeat debridement and amputation of right 5th toe and partial excision of 5th metatarsal on 07/09/2016. He had another debridement at bedside on 07/15/[address] Rosa[address]The plan is to start him on wound VAC on 07/16/2016. Physical Exam Vital Signs: Temp Pulse Resp BP Pulse Ox 97.3 F 57 L 20 151/60 H 95 07/16/16 11:14 07/16/16 14:00 07/16/16 11:14 07/16/16 11:14 07/16/16 11:14 Intake & Output 07/15/16 07/16/16 07/17/16 06:59 06:59 06:59 Intake Total 2910 2608 695 Output Total 500 500 100 Balance 2410 2108 595 Weight 129 kg 129 kg General appearance: PRESENT: no acute distress Head exam: PRESENT: atraumatic, normocephalic Eye exam: PRESENT: EOMI, PERRLA Mouth exam: PRESENT: moist, neck supple Neck exam: PRESENT: full ROM Respiratory exam: PRESENT: decreased breath sounds Cardiovascular exam: PRESENT: irregular rhythm, +S1, +S2 Pulses: PRESENT: +1 pedal pulses bilateral GI/Abdominal exam: PRESENT: normal bowel sounds, soft Neurological exam: PRESENT: alert, awake, oriented to person, oriented to place , oriented to time Psychiatric exam: PRESENT: normal mood Skin exam: PRESENT: normal color Results Laboratory Results: 07/16/16 06:00 07/16/16 07:16 07/16/16 07/16/16 07/16/16 06:00 06:00 07:16 WBC 5.8 RBC 3.55 L Hgb 8.8 L Hct 27.5 L MCV 78 L MCH 24.8 L MCHC 32.0 RDW 15.8 H Plt Count 256 Seg Neutrophils % 70.9 Lymphocytes % 15.9 Monocytes % 11.1 Eosinophils % 0.9 Basophils % 1.2 Absolute Neutrophils 4.1 Absolute Lymphocytes 0.9 Absolute Monocytes 0.6 Absolute Eosinophils 0.1 Absolute Basophils 0.1 Sodium Cancelled 142.5 Potassium Cancelled 4.1 Chloride Cancelled 103 Carbon Dioxide Cancelled 29 Anion Gap Cancelled 11 BUN Cancelled 11 Creatinine Cancelled 1.71 H Est GFR ( Amer) Cancelled 47 L Est GFR (Non-Af Amer) Cancelled 39 L Glucose Cancelled 130 H Calcium Cancelled 8.9 Total Bilirubin Cancelled 1.0 AST Cancelled 46 ALT Cancelled 52 Alkaline Phosphatase Cancelled 136 H Total Protein Cancelled 7.2 Albumin Cancelled 2.8 L 07/04/16 07/04/16 07/06/16 07:46 07:46 06:05 Creatine Kinase 2326 H 691 H NT-Pro-B Natriuret Pep 92022 H 07/07/16 07/08/16 05:43 05:43 Creatine Kinase 502 H 355 H NT-Pro-B Natriuret Pep Impressions: Chest X-Ray 07/03/16 16:13 IMPRESSION: No significant interval change. Cardiomegaly with mild pulmonary vascular congestion. No acute consolidations or pleural effusions are identified. Foot X-Ray 07/03/16 16:14 IMPRESSION: EROSIVE CHANGES INVOLVING THE HEAD OF THE 5TH METATARSAL AND BASE OF THE PROXIMAL PHALANX OF THE 5TH TOE. FINDINGS ARE SUSPICIOUS FOR OSTEOMYELITIS, PROBABLY CHRONIC. GENERAL SOFT TISSUE SWELLING. NO ACUTE FINDINGS. Lower Extremity MRI 07/04/16 09:00 IMPRESSION: 5th metatarsal and 5th proximal phalanx osteomyelitis Extensive deep tissue cellulitis right foot without gross evidence of abscess Assessment & Plan - Diagnosis (1) Osteomyelitis of right foot Qualifiers: Chronicity: acute Qualified Code(s): M86.171 - Other acute osteomyelitis, right ankle and foot Is this a current diagnosis for this admission?: YesPlan: Ct with Zosyn 3.375 G IV q6h; IV Vancomycin as per [facility] protocol; Percocet 5/325 1 Q6H prn; F/u blood and wound cultures; He had repeat debridement and amputation of 5th toe and 5th metatarsal on 07/09/[address] Blankenship. (2) Hypertensive urgency Is this a current diagnosis for this admission?: YesPlan: Ct with Amlodipine 10 mg daily po; Diovan 320 mg daily po; Metoprolol 25 mg BID PO; Clonidine 0.1mg q6h prn po; we will increase Hydralazine to 100 mg q8h PO to optimize BP control. Ct with 2 G sodium diet. (3) Diabetic ketoacidosis Qualifiers: Diabetes mellitus type: type 2 Diabetes mellitus complication detail: without coma Qualified Code(s): E13.10 - Other specified diabetes mellitus with ketoacidosis without coma Is this a current diagnosis for this admission?: YesPlan: Ct with IV fluid normal saline at 125 cc/hr; Slidding scale with humalog insulin [facility] protocol; Lantus insulin 40 iu qhs sucut; 1800 calorie ADA diet. (4) Rhabdomyolysis Qualifiers: Rhabdomyolysis type: non-traumatic Qualified Code(s): M62.82 - Rhabdomyolysis Is this a current diagnosis for this admission?: YesPlan: Ct with IV fluids normal saline at 125cc/hour; Monitor chemistries and CK daily ; Strict input/out put chart. 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 (6) CHF exacerbation Qualifiers: Congestive heart failure type: unspecified congestive heart failure type Qualified Code(s): I50.9 - Heart failure, unspecified Is this a current diagnosis for this admission?: Yes (7) Atrial fibrillation Qualifiers: Atrial fibrillation type: paroxysmal Qualified Code(s): I48.0 - Paroxysmal atrial fibrillation Is this a current diagnosis for this admission?: YesPlan: Ct with Eliquis 5 mg BID po; Metoprolol 25 mg BID po. (8) COPD (chronic obstructive pulmonary disease) Qualifiers: COPD type: unspecified COPD Qualified Code(s): J44.9 - Chronic obstructive pulmonary disease, unspecified Is this a current diagnosis for this admission?: YesPlan: Ct with Duonebs q6h pr; Spiriva 18 mcg daily; Oxygen by N/C 2 L/min. (9) Hypertension Qualifiers: Hypertension type: essential hypertension Qualified Code(s): I10 - Essential (primary) hypertension Is this a current diagnosis for this admission?: Yes (10) Hyperlipidemia Qualifiers: Hyperlipidemia type: unspecified Qualified Code(s): E78.5 - Hyperlipidemia, unspecified Is this a current diagnosis for this admission?: YesPlan: Hold Atorvastatin due to rhabdomyolysis; ct with 200 mg cholesterol diet. (11) Chronic kidney disease (CKD) Is this a current diagnosis for this admission?: YesPlan: Avoid nephrotoxics; daily chemistries; daily wt; strict input/out put chart. (12) Obstructive sleep apnea Is this a current diagnosis for this admission?: YesPlan: Ct with CPAP at night. (13) Iron deficiency anemia Qualifiers: Iron deficiency anemia type: unspecified iron deficiency Qualified Code(s): D50.9 - Iron deficiency anemia, unspecified Is this a current diagnosis for this admission?: YesPlan: Ct with Ferrous sulfate 325 mg BID po; monitor CBC daily. (14) Vitamin D deficiency Is this a current diagnosis for this admission?: YesPlan: Ct with Vitamin D 63284bl weekly. (15) GERD (gastroesophageal reflux disease) Qualifiers: Esophagitis presence: without esophagitis Qualified Code(s): K21.9 - Gastro-esophageal reflux disease without esophagitis Is this a current diagnosis for this admission?: YesPlan: Ct with Prevacid 30 mg daily po. (16) Prostate cancer Is this a current diagnosis for this admission?: NoPlan: Ct with Alfuzosin 10 mg qd po. (17) Morbid obesity Qualifiers: Obesity type: unspecified obesity type Qualified Code(s): E66.01 - Morbid (severe) obesity due to excess calories Is this a current diagnosis for this admission?: YesPlan: Cty with diet/exercise counseling. (18) DVT prophylaxis Is this a current diagnosis for this admission?: YesPlan: Ct with Eliquis 5 mg BID po; SCD.
[2016-07-16] MEDS: CLONIDINE HCL 0.1 MG TABLET PO PRN (18:58)
--- NOTE | 2016-07-16 20:31 | PDOC PROGRESS REPORT ---
Subjective Subjective:: Denies any problems. Patient is found sitting at the bedside with feet on the ground. Nursing reports he's been noncompliant with leg elevation. Physical Exam Vital Signs: Temp Pulse Resp BP Pulse Ox 97.5 F 59 L 20 182/70 H 98 07/16/16 16:21 07/16/16 16:21 07/16/16 16:21 07/16/16 16:21 07/16/16 19:10 Intake & Output 07/15/16 07/16/16 07/17/16 06:59 06:59 06:59 Intake Total 2910 2608 1797 Output Total 500 500 101 Balance 2410 2108 1696 Weight 129 kg 129 kg General appearance: PRESENT: no acute distress Head exam: PRESENT: normocephalic Extremities exam: PRESENT: other - Right foot status post fifth toe and metatarsal amputation. Wound bed appears clean with granulation tissue. Undermining in 2 parts the wound is probed with Q-tip. No purulent pockets discovered. The wound is packed with half-inch iodoform gauze, then dressed with 4 x 4's and Kerlix roll. Patient tolerated with some discomfort. Neurological exam: PRESENT: alert, oriented to situation Results Laboratory Results: 07/16/16 06:00 07/16/16 07:16 07/16/16 07/16/16 07/16/16 06:00 06:00 07:16 WBC 5.8 RBC 3.55 L Hgb 8.8 L Hct 27.5 L MCV 78 L MCH 24.8 L MCHC 32.0 RDW 15.8 H Plt Count 256 Seg Neutrophils % 70.9 Lymphocytes % 15.9 Monocytes % 11.1 Eosinophils % 0.9 Basophils % 1.2 Absolute Neutrophils 4.1 Absolute Lymphocytes 0.9 Absolute Monocytes 0.6 Absolute Eosinophils 0.1 Absolute Basophils 0.1 Sodium Cancelled 142.5 Potassium Cancelled 4.1 Chloride Cancelled 103 Carbon Dioxide Cancelled 29 Anion Gap Cancelled 11 BUN Cancelled 11 Creatinine Cancelled 1.71 H Est GFR ( Amer) Cancelled 47 L Est GFR (Non-Af Amer) Cancelled 39 L Glucose Cancelled 130 H Calcium Cancelled 8.9 Total Bilirubin Cancelled 1.0 AST Cancelled 46 ALT Cancelled 52 Alkaline Phosphatase Cancelled 136 H Total Protein Cancelled 7.2 Albumin Cancelled 2.8 L 07/04/16 07/04/16 07/06/16 07:46 07:46 06:05 Creatine Kinase 2326 H 691 H NT-Pro-B Natriuret Pep 95371 H 07/07/16 07/08/16 05:43 05:43 Creatine Kinase 502 H 355 H NT-Pro-B Natriuret Pep Impressions: Chest X-Ray 07/03/16 16:13 IMPRESSION: No significant interval change. Cardiomegaly with mild pulmonary vascular congestion. No acute consolidations or pleural effusions are identified. Foot X-Ray 07/03/16 16:14 IMPRESSION: EROSIVE CHANGES INVOLVING THE HEAD OF THE 5TH METATARSAL AND BASE OF THE PROXIMAL PHALANX OF THE 5TH TOE. FINDINGS ARE SUSPICIOUS FOR OSTEOMYELITIS, PROBABLY CHRONIC. GENERAL SOFT TISSUE SWELLING. NO ACUTE FINDINGS. Lower Extremity MRI 07/04/16 09:00 IMPRESSION: 5th metatarsal and 5th proximal phalanx osteomyelitis Extensive deep tissue cellulitis right foot without gross evidence of abscess Assessment & Plan - Diagnosis (1) Diabetic ketoacidosis Qualifiers: Diabetes mellitus type: type 2 Diabetes mellitus complication detail: without coma Qualified Code(s): E13.10 - Other specified diabetes mellitus with ketoacidosis without coma Is this a current diagnosis for this admission?: Yes (2) Osteomyelitis Qualifiers: Osteomyelitis location: foot Laterality: right Chronicity: acute Qualified Code(s): M86.171 - Other acute osteomyelitis, right ankle and foot Is this a current diagnosis for this admission?: Yes (3) Anemia of chronic disease Is this a current diagnosis for this admission?: Yes (4) Atrial flutter Is this a current diagnosis for this admission?: Yes (6) CHF exacerbation Qualifiers: Congestive heart failure type: unspecified congestive heart failure type Qualified Code(s): I50.9 - Heart failure, unspecified Is this a current diagnosis for this admission?: Yes (7) Diabetes mellitus type 2 in obese Is this a current diagnosis for this admission?: Yes (8) COPD (chronic obstructive pulmonary disease) Qualifiers: COPD type: unspecified COPD Qualified Code(s): J44.9 - Chronic obstructive pulmonary disease, unspecified Is this a current diagnosis for this admission?: Yes (9) Osteomyelitis of right foot Qualifiers: Chronicity: acute Qualified Code(s): M86.171 - Other acute osteomyelitis, right ankle and foot Is this a current diagnosis for this admission?: YesPlan: Status post fifth toe and metatarsal amputation. Debrided skin at bedside last evening by Dr. Rosa. Wound bed looks good, although still has 2 areas of undermining. Consider wound VAC tomorrow versus continue dressing changes. Both legs still with considerable edema, reemphasized the need for elevation.
[2016-07-16] MEDS: VANCOMYCIN HCL 1,500 MG in DEXTROSE 5%-WATER 250 ML IV SCH (22:29)
[2016-07-16] MEDS: INSULIN GLARGINE,HUM.REC.ANLOG 300 UNIT/3 ML INSULN.PEN SUBCUT SCH (22:30)
[2016-07-17] MEDS: PIPERACILLIN SODIUM/TAZOBACTAM 3.375 GM in NORMAL SALINE 100 ML IV SCH ×4 (00:44→18:05)
[2016-07-17 05:50] LABS: ABSOLUTE EOSINOPHILS # (AUTO) 0.1 10^3/uL (0.0-0.6); ABSOLUTE LYMPHOCYTES (AUTO) 1.1 10^3/uL (0.5-4.7); ABSOLUTE MONOCYTES (AUTO) 0.7 10^3/uL (0.1-1.4); ABSOLUTE NEUT (AUTO) 3.7 10^3/uL (1.7-8.2); BASOPHILS % (AUTO) 0.5 % (0-2); EOSINOPHILS % (AUTO) 1.6 % (0-6); HEMATOCRIT 27.5 % (37.9-51.0); HEMOGLOBIN 8.7 g/dL (13.5-17.0); HGB HCT DIFFERENCE -1.4; LYMPHOCYTES % (AUTO) 19.4 % (13-45); MEAN CORPUSCULAR HEMOGLOBIN 24.6 pg (27.0-33.4); MEAN CORPUSCULAR HGB CONC 31.7 g/dL (32.0-36.0); MEAN CORPUSCULAR VOLUME 78 fl (80-97); MONOCYTES % (AUTO) 12.5 % (3-13); RED BLOOD COUNT 3.54 10^6/uL (4.35-5.55); RED CELL DISTRIBUTION WIDTH 15.9 % (11.5-14.0); WHITE BLOOD COUNT 5.6 10^3/uL (4.0-10.5)
[2016-07-17 06:14] LABS: ALANINE AMINOTRANSFERASE 48 U/L (21-72); ALBUMIN 3.1 g/dL (3.5-5.0); ALKALINE PHOSPHATASE 122 U/L (38-126); ANION GAP 12 (5-19); ASPARTATE AMINO TRANSFERASE 35 U/L (17-59); BILIRUBIN,TOTAL 0.7 mg/dL (0.2-1.3); BLOOD UREA NITROGEN 11 mg/dL (7-20); CALCIUM 8.8 mg/dL (8.4-10.2); CARBON DIOXIDE 27 mmol/L (22-30); CHLORIDE 105 mmol/L (98-107); CREATININE RESULT 1.68 mg/dL (0.52-1.25); GLUCOSE 61 mg/dL (75-110); POTASSIUM 3.7 mmol/L (3.6-5.0); SODIUM 143.6 mmol/L (137-145); TOTAL PROTEIN 7.1 g/dL (6.3-8.2)
[2016-07-17] MEDS: HYDRALAZINE HCL 50 MG TABLET PO SCH ×3 (06:20→20:48)
[2016-07-17] MEDS: NORMAL SALINE 1000 ML 1,000 ML IV PRN (06:24)
[2016-07-17] MEDS: TIOTROPIUM BROMIDE DPI 5 CAP/KIT (18 MCG/CAP) IH SCH (09:21)
[2016-07-17] MEDS: ASPIRIN 325 MG TABLET PO SCH (09:22)
[2016-07-17] MEDS: VALSARTAN 160 MG TABLET PO SCH (09:22)
[2016-07-17] MEDS: APIXABAN 5 MG TABLET PO SCH ×2 (09:23→18:05)
[2016-07-17] MEDS: LANSOPRAZOLE 30 MG TAB.RAP.DR PO SCH (09:23)
[2016-07-17] MEDS: ISOSORBIDE MONONITRATE 30 MG TAB.ER.24H PO SCH (09:23)
[2016-07-17] MEDS: FERROUS SULFATE 325 MG TABLET PO SCH ×2 (09:23→18:04)
[2016-07-17] MEDS: AMLODIPINE BESYLATE 10 MG TABLET PO SCH (09:23)
[2016-07-17] MEDS: METOPROLOL TARTRATE 25 MG TABLET PO SCH ×2 (09:23→20:49)
[2016-07-17] MEDS: POTASSIUM CHLORIDE 10 MEQ TABLET.SA PO SCH (09:23)
[2016-07-17] MEDS: GLIPIZIDE 10 MG TABLET PO SCH (09:23)
[2016-07-17] MEDS: BUMETANIDE 1 MG TABLET PO SCH (10:30)
--- NOTE | 2016-07-17 12:29 | PDOC PROGRESS REPORT ---
Subjective Progress Note for:: 07/17/16 Subjective:: He had debridement of right foot ulcer on 07/04/2016. He is feeling much better and his BP is still uncontrolled. We restarted his Valsartan 320 mg qd and Metoprolol 25 mg BID; add Clonidine 0.1mg q6h prn. F/u PT/OT consult. F/u Gen. surgery for wound mgt. We increased Hydralazine 100 mg q8h PO to help optimize BP control. He had repeat debridement and amputation of right 5th toe and partial excision of 5th metatarsal on 07/09/2016. He had another debridement at bedside on 07/15/[address] Rosa[address]The plan is to consider him on wound VAC on 07/17/2016 vs continuing with dressing . Pt refused both physical therapy and assistant track coach on 07/17/2016 and they have signed off on him. Physical Exam Vital Signs: Temp Pulse Resp BP Pulse Ox 98.1 F 57 L 16 158/65 H 100 07/17/16 11:11 07/17/16 11:11 07/17/16 11:11 07/17/16 11:11 07/17/16 11:11 Intake & Output 07/16/16 07/17/16 07/18/16 06:59 06:59 06:59 Intake Total 2608 3092 Output Total 500 101 Balance 2108 2991 Weight 129 kg 130.7 kg General appearance: PRESENT: no acute distress, morbidly obese, well-developed, well-nourished Head exam: PRESENT: atraumatic, normocephalic Eye exam: PRESENT: EOMI, PERRLA Ear exam: PRESENT: normal external ear exam Mouth exam: PRESENT: moist, neck supple Neck exam: PRESENT: full ROM Respiratory exam: PRESENT: decreased breath sounds Cardiovascular exam: PRESENT: irregular rhythm, +S1, +S2 GI/Abdominal exam: PRESENT: normal bowel sounds, soft Additional comments: Right foot- covered with dressing- not soaked; wound is healing as per surgical note. Musculoskeletal exam: PRESENT: ambulatory Neurological exam: PRESENT: awake, oriented to person, oriented to place, oriented to time Psychiatric exam: PRESENT: normal mood Results Laboratory Results: 07/17/16 05:33 07/17/16 05:33 07/17/16 07/17/16 05:33 05:33 WBC 5.6 RBC 3.54 L Hgb 8.7 L Hct 27.5 L MCV 78 L MCH 24.6 L MCHC 31.7 L RDW 15.9 H Plt Count 212 Seg Neutrophils % 66.0 Lymphocytes % 19.4 Monocytes % 12.5 Eosinophils % 1.6 Basophils % 0.5 Absolute Neutrophils 3.7 Absolute Lymphocytes 1.1 Absolute Monocytes 0.7 Absolute Eosinophils 0.1 Absolute Basophils 0.0 Sodium 143.6 Potassium 3.7 Chloride 105 Carbon Dioxide 27 Anion Gap 12 BUN 11 Creatinine 1.68 H Est GFR ( Amer) 48 L Est GFR (Non-Af Amer) 40 L Glucose 61 L Calcium 8.8 Total Bilirubin 0.7 AST 35 ALT 48 Alkaline Phosphatase 122 Total Protein 7.1 Albumin 3.1 L 07/04/16 07/04/16 07/06/16 07:46 07:46 06:05 Creatine Kinase 2326 H 691 H NT-Pro-B Natriuret Pep 10952 H 07/07/16 07/08/16 05:43 05:43 Creatine Kinase 502 H 355 H NT-Pro-B Natriuret Pep Impressions: Chest X-Ray 07/03/16 16:13 IMPRESSION: No significant interval change. Cardiomegaly with mild pulmonary vascular congestion. No acute consolidations or pleural effusions are identified. Foot X-Ray 07/03/16 16:14 IMPRESSION: EROSIVE CHANGES INVOLVING THE HEAD OF THE 5TH METATARSAL AND BASE OF THE PROXIMAL PHALANX OF THE 5TH TOE. FINDINGS ARE SUSPICIOUS FOR OSTEOMYELITIS, PROBABLY CHRONIC. GENERAL SOFT TISSUE SWELLING. NO ACUTE FINDINGS. Lower Extremity MRI 07/04/16 09:00 IMPRESSION: 5th metatarsal and 5th proximal phalanx osteomyelitis Extensive deep tissue cellulitis right foot without gross evidence of abscess Assessment & Plan - Diagnosis (1) Osteomyelitis of right foot Qualifiers: Chronicity: acute Qualified Code(s): M86.171 - Other acute osteomyelitis, right ankle and foot Is this a current diagnosis for this admission?: YesPlan: Ct with Zosyn 3.375 G IV q6h; IV Vancomycin as per [facility] protocol; Percocet 5/325 1 Q6H prn; F/u blood and wound cultures; He had repeat debridement and amputation of 5th toe and 5th metatarsal on 07/09/[address] Blankenship. (2) Hypertensive urgency Is this a current diagnosis for this admission?: YesPlan: Ct with Amlodipine 10 mg daily po; Diovan 320 mg daily po; Metoprolol 25 mg BID PO; Clonidine 0.1mg q6h prn po; we will increase Hydralazine to 100 mg q8h PO to optimize BP control. Ct with 2 G sodium diet. (3) Diabetic ketoacidosis Qualifiers: Diabetes mellitus type: type 2 Diabetes mellitus complication detail: without coma Qualified Code(s): E13.10 - Other specified diabetes mellitus with ketoacidosis without coma Is this a current diagnosis for this admission?: YesPlan: Ct with IV fluid normal saline at 125 cc/hr; Slidding scale with humalog insulin [facility] protocol; Lantus insulin 40 iu qhs sucut; 1800 calorie ADA diet. (4) Rhabdomyolysis Qualifiers: Rhabdomyolysis type: non-traumatic Qualified Code(s): M62.82 - Rhabdomyolysis Is this a current diagnosis for this admission?: YesPlan: Ct with IV fluids normal saline at 125cc/hour; Monitor chemistries and CK daily ; Strict input/out put chart. 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 (6) CHF exacerbation Qualifiers: Congestive heart failure type: unspecified congestive heart failure type Qualified Code(s): I50.9 - Heart failure, unspecified Is this a current diagnosis for this admission?: Yes (7) Atrial fibrillation Qualifiers: Atrial fibrillation type: paroxysmal Qualified Code(s): I48.0 - Paroxysmal atrial fibrillation Is this a current diagnosis for this admission?: YesPlan: Ct with Eliquis 5 mg BID po; Metoprolol 25 mg BID po. (8) COPD (chronic obstructive pulmonary disease) Qualifiers: COPD type: unspecified COPD Qualified Code(s): J44.9 - Chronic obstructive pulmonary disease, unspecified Is this a current diagnosis for this admission?: YesPlan: Ct with Duonebs q6h pr; Spiriva 18 mcg daily; Oxygen by N/C 2 L/min. (9) Hypertension Qualifiers: Hypertension type: essential hypertension Qualified Code(s): I10 - Essential (primary) hypertension Is this a current diagnosis for this admission?: Yes (10) Hyperlipidemia Qualifiers: Hyperlipidemia type: unspecified Qualified Code(s): E78.5 - Hyperlipidemia, unspecified Is this a current diagnosis for this admission?: YesPlan: Hold Atorvastatin due to rhabdomyolysis; ct with 200 mg cholesterol diet. (11) Chronic kidney disease (CKD) Is this a current diagnosis for this admission?: YesPlan: Avoid nephrotoxics; daily chemistries; daily wt; strict input/out put chart. (12) Obstructive sleep apnea Is this a current diagnosis for this admission?: YesPlan: Ct with CPAP at night. (13) Iron deficiency anemia Qualifiers: Iron deficiency anemia type: unspecified iron deficiency Qualified Code(s): D50.9 - Iron deficiency anemia, unspecified Is this a current diagnosis for this admission?: YesPlan: Ct with Ferrous sulfate 325 mg BID po; monitor CBC daily. (14) Vitamin D deficiency Is this a current diagnosis for this admission?: YesPlan: Ct with Vitamin D [id number] weekly. (15) GERD (gastroesophageal reflux disease) Qualifiers: Esophagitis presence: without esophagitis Qualified Code(s): K21.9 - Gastro-esophageal reflux disease without esophagitis Is this a current diagnosis for this admission?: YesPlan: Ct with Prevacid 30 mg daily po. (16) Prostate cancer Is this a current diagnosis for this admission?: NoPlan: Ct with Alfuzosin 10 mg qd po. (17) Morbid obesity Qualifiers: Obesity type: unspecified obesity type Qualified Code(s): E66.01 - Morbid (severe) obesity due to excess calories Is this a current diagnosis for this admission?: YesPlan: Cty with diet/exercise counseling. (18) DVT prophylaxis Is this a current diagnosis for this admission?: YesPlan: Ct with Eliquis 5 mg BID po; SCD.
[2016-07-17] MEDS: VANCOMYCIN HCL 1,500 MG in DEXTROSE 5%-WATER 250 ML IV SCH (20:57)
[2016-07-17] MEDS: INSULIN GLARGINE,HUM.REC.ANLOG 300 UNIT/3 ML INSULN.PEN SUBCUT SCH (22:31)
[2016-07-18] MEDS: PIPERACILLIN SODIUM/TAZOBACTAM 3.375 GM in NORMAL SALINE 100 ML IV SCH ×5 (00:10→23:15)
[2016-07-18] MEDS: HYDRALAZINE HCL 50 MG TABLET PO SCH ×3 (05:19→21:02)
[2016-07-18 06:01] LABS: ABSOLUTE EOSINOPHILS # (AUTO) 0.1 10^3/uL (0.0-0.6); ABSOLUTE LYMPHOCYTES (AUTO) 1.1 10^3/uL (0.5-4.7); ABSOLUTE MONOCYTES (AUTO) 0.6 10^3/uL (0.1-1.4); ABSOLUTE NEUT (AUTO) 3.2 10^3/uL (1.7-8.2); BASOPHILS % (AUTO) 0.8 % (0-2); EOSINOPHILS % (AUTO) 1.9 % (0-6); HEMATOCRIT 26.4 % (37.9-51.0); HEMOGLOBIN 8.3 g/dL (13.5-17.0); HGB HCT DIFFERENCE -1.5; LYMPHOCYTES % (AUTO) 21.2 % (13-45); MEAN CORPUSCULAR HEMOGLOBIN 24.7 pg (27.0-33.4); MEAN CORPUSCULAR HGB CONC 31.6 g/dL (32.0-36.0); MEAN CORPUSCULAR VOLUME 78 fl (80-97); MONOCYTES % (AUTO) 12.2 % (3-13); RED BLOOD COUNT 3.38 10^6/uL (4.35-5.55); RED CELL DISTRIBUTION WIDTH 16.3 % (11.5-14.0); SEGMENTED NEUTROPHILS % (AUTO) 63.9 % (42-78)
[2016-07-18 06:21] LABS: ALANINE AMINOTRANSFERASE 51 U/L (21-72); ALBUMIN 2.6 g/dL (3.5-5.0); ALKALINE PHOSPHATASE 123 U/L (38-126); ANION GAP 10 (5-19); ASPARTATE AMINO TRANSFERASE 39 U/L (17-59); BILIRUBIN,TOTAL 0.7 mg/dL (0.2-1.3); BLOOD UREA NITROGEN 12 mg/dL (7-20); CALCIUM 8.6 mg/dL (8.4-10.2); CARBON DIOXIDE 27 mmol/L (22-30); CHLORIDE 105 mmol/L (98-107); CREATININE RESULT 1.76 mg/dL (0.52-1.25); GLUCOSE 122 mg/dL (75-110); POTASSIUM 4.2 mmol/L (3.6-5.0); SODIUM 142.4 mmol/L (137-145)
--- NOTE | 2016-07-18 06:58 | PDOC PROGRESS REPORT ---
Subjective Progress Note for:: 07/17/16 Subjective:: Late entry. No complaints with foot. With multiple comorbidities, PCP still working on blood pressure control and management of multiple comorbidities. On Eliquis for A. fib. Physical Exam Vital Signs: Temp Pulse Resp BP Pulse Ox 97.7 F 57 L 20 173/65 H 100 07/18/16 05:21 07/18/16 05:21 07/18/16 05:21 07/18/16 05:21 07/18/16 05:21 Intake & Output 07/16/16 07/17/16 07/18/16 06:59 06:59 06:59 Intake Total 2608 3092 2820 Output Total 471 639 1679 Balance 2108 2991 970 Weight 129 kg 130.7 kg 128.5 kg General appearance: PRESENT: no acute distress Head exam: PRESENT: normocephalic Extremities exam: PRESENT: other - Right foot status post multiple debridements for osteomyelitis. Wound is probed with Q-tips. No purulence in the undermined areas. The wound is repacked with iodoform gauze, dressed with gauze 4 x 4's, Kerlix roll. Neurological exam: PRESENT: alert, oriented to situation Psychiatric exam: PRESENT: appropriate affect, normal mood Results Laboratory Results: 07/18/16 05:26 07/18/16 05:26 07/18/16 07/18/16 05:26 05:26 WBC 5.0 RBC 3.38 L Hgb 8.3 L Hct 26.4 L MCV 78 L MCH 24.7 L MCHC 31.6 L RDW 16.3 H Plt Count 219 Seg Neutrophils % 63.9 Lymphocytes % 21.2 Monocytes % 12.2 Eosinophils % 1.9 Basophils % 0.8 Absolute Neutrophils 3.2 Absolute Lymphocytes 1.1 Absolute Monocytes 0.6 Absolute Eosinophils 0.1 Absolute Basophils 0.0 Sodium 142.4 Potassium 4.2 Chloride 105 Carbon Dioxide 27 Anion Gap 10 BUN 12 Creatinine 1.76 H Est GFR ( Amer) 46 L Est GFR (Non-Af Amer) 38 L Glucose 122 H Calcium 8.6 Total Bilirubin 0.7 AST 39 ALT 51 Alkaline Phosphatase 123 Total Protein 7.0 Albumin 2.6 L 07/04/16 07/04/16 07/06/16 07:46 07:46 06:05 Creatine Kinase 2326 H 691 H NT-Pro-B Natriuret Pep 81954 H 07/07/16 07/08/16 05:43 05:43 Creatine Kinase 502 H 355 H NT-Pro-B Natriuret Pep Impressions: Chest X-Ray 07/03/16 16:13 IMPRESSION: No significant interval change. Cardiomegaly with mild pulmonary vascular congestion. No acute consolidations or pleural effusions are identified. Foot X-Ray 07/03/16 16:14 IMPRESSION: EROSIVE CHANGES INVOLVING THE HEAD OF THE 5TH METATARSAL AND BASE OF THE PROXIMAL PHALANX OF THE 5TH TOE. FINDINGS ARE SUSPICIOUS FOR OSTEOMYELITIS, PROBABLY CHRONIC. GENERAL SOFT TISSUE SWELLING. NO ACUTE FINDINGS. Lower Extremity MRI 07/04/16 09:00 IMPRESSION: 5th metatarsal and 5th proximal phalanx osteomyelitis Extensive deep tissue cellulitis right foot without gross evidence of abscess Assessment & Plan - Diagnosis (1) Diabetic ketoacidosis Qualifiers: Diabetes mellitus type: type 2 Diabetes mellitus complication detail: without coma Qualified Code(s): E13.10 - Other specified diabetes mellitus with ketoacidosis without coma Is this a current diagnosis for this admission?: Yes (2) Osteomyelitis Qualifiers: Osteomyelitis location: foot Laterality: right Chronicity: acute Qualified Code(s): M86.171 - Other acute osteomyelitis, right ankle and foot Is this a current diagnosis for this admission?: YesPlan: Foot looks good with bed of healthy-appearing granulation tissue. Undermined areas have no pockets of purulence. Plan is to apply wound VAC in the a.m. With multiple comorbidities managed by [facility] for A. fib, DVT PE prophylaxis. (3) Anemia of chronic disease Is this a current diagnosis for this admission?: Yes (4) Atrial flutter Is this a current diagnosis for this admission?: Yes (6) CHF exacerbation Qualifiers: Congestive heart failure type: unspecified congestive heart failure type Qualified Code(s): I50.9 - Heart failure, unspecified Is this a current diagnosis for this admission?: Yes (7) Diabetes mellitus type 2 in obese Is this a current diagnosis for this admission?: Yes (8) COPD (chronic obstructive pulmonary disease) Qualifiers: COPD type: unspecified COPD Qualified Code(s): J44.9 - Chronic obstructive pulmonary disease, unspecified Is this a current diagnosis for this admission?: Yes (9) Osteomyelitis of right foot Qualifiers: Chronicity: acute Qualified Code(s): M86.171 - Other acute osteomyelitis, right ankle and foot Is this a current diagnosis for this admission?: Yes
[2016-07-18] MEDS: FERROUS SULFATE 325 MG TABLET PO SCH ×2 (08:06→17:20)
[2016-07-18] MEDS: GLIPIZIDE 10 MG TABLET PO SCH (08:06)
[2016-07-18] MEDS: AMLODIPINE BESYLATE 10 MG TABLET PO SCH (09:46)
[2016-07-18] MEDS: POTASSIUM CHLORIDE 10 MEQ TABLET.SA PO SCH (09:46)
[2016-07-18] MEDS: ASPIRIN 325 MG TABLET PO SCH (09:46)
[2016-07-18] MEDS: VALSARTAN 160 MG TABLET PO SCH (09:48)
[2016-07-18] MEDS: BUMETANIDE 1 MG TABLET PO SCH (09:48)
[2016-07-18] MEDS: LANSOPRAZOLE 30 MG TAB.RAP.DR PO SCH (09:49)
[2016-07-18] MEDS: ISOSORBIDE MONONITRATE 30 MG TAB.ER.24H PO SCH (09:49)
[2016-07-18] MEDS: APIXABAN 5 MG TABLET PO SCH ×2 (09:49→17:20)
[2016-07-18] MEDS: METOPROLOL TARTRATE 25 MG TABLET PO SCH ×2 (09:49→21:02)
[2016-07-18] MEDS: TIOTROPIUM BROMIDE DPI 5 CAP/KIT (18 MCG/CAP) IH SCH (09:49)
--- NOTE | 2016-07-18 13:33 | PDOC PROGRESS REPORT ---
Subjective Progress Note for:: 07/18/16 Subjective:: No complaints Physical Exam Vital Signs: Temp Pulse Resp BP Pulse Ox 98.2 F 51 L 24 H 143/54 H 94 07/18/16 11:42 07/18/16 11:42 07/18/16 11:42 07/18/16 11:42 07/18/16 11:42 Intake & Output 07/17/16 07/18/16 07/19/16 06:59 06:59 06:59 Intake Total 3092 2820 Output Total 101 1850 Balance 2991 970 Weight 130.7 kg 128.5 kg Extremities exam: PRESENT: other - Foot wound clean with no necrotic necrotic debris no drainage. Results Laboratory Results: 07/18/16 05:26 07/18/16 05:26 07/18/16 07/18/16 05:26 05:26 WBC 5.0 RBC 3.38 L Hgb 8.3 L Hct 26.4 L MCV 78 L MCH 24.7 L MCHC 31.6 L RDW 16.3 H Plt Count 219 Seg Neutrophils % 63.9 Lymphocytes % 21.2 Monocytes % 12.2 Eosinophils % 1.9 Basophils % 0.8 Absolute Neutrophils 3.2 Absolute Lymphocytes 1.1 Absolute Monocytes 0.6 Absolute Eosinophils 0.1 Absolute Basophils 0.0 Sodium 142.4 Potassium 4.2 Chloride 105 Carbon Dioxide 27 Anion Gap 10 BUN 12 Creatinine 1.76 H Est GFR ( Amer) 46 L Est GFR (Non-Af Amer) 38 L Glucose 122 H Calcium 8.6 Total Bilirubin 0.7 AST 39 ALT 51 Alkaline Phosphatase 123 Total Protein 7.0 Albumin 2.6 L 07/04/16 07/04/16 07/06/16 07:46 07:46 06:05 Creatine Kinase 2326 H 691 H NT-Pro-B Natriuret Pep [id number] H 07/07/16 07/08/16 05:43 05:43 Creatine Kinase 502 H 355 H NT-Pro-B Natriuret Pep Impressions: Chest X-Ray 07/03/16 16:13 IMPRESSION: No significant interval change. Cardiomegaly with mild pulmonary vascular congestion. No acute consolidations or pleural effusions are identified. Foot X-Ray 07/03/16 16:14 IMPRESSION: EROSIVE CHANGES INVOLVING THE HEAD OF THE 5TH METATARSAL AND BASE OF THE PROXIMAL PHALANX OF THE 5TH TOE. FINDINGS ARE SUSPICIOUS FOR OSTEOMYELITIS, PROBABLY CHRONIC. GENERAL SOFT TISSUE SWELLING. NO ACUTE FINDINGS. Lower Extremity MRI 07/04/16 09:00 IMPRESSION: 5th metatarsal and 5th proximal phalanx osteomyelitis Extensive deep tissue cellulitis right foot without gross evidence of abscess Assessment & Plan - Diagnosis (1) Osteomyelitis of right foot Qualifiers: Chronicity: acute Qualified Code(s): M86.171 - Other acute osteomyelitis, right ankle and foot Is this a current diagnosis for this admission?: YesPlan: Status post multiple debridements. Wound looks very clean. Will apply wound VAC today. (2) Osteomyelitis Qualifiers: Osteomyelitis location: foot Laterality: right Chronicity: acute Qualified Code(s): M86.171 - Other acute osteomyelitis, right ankle and foot Is this a current diagnosis for this admission?: Yes
--- NOTE | 2016-07-18 17:09 | PDOC PROGRESS REPORT ---
Subjective Progress Note for:: 07/18/16 Subjective:: He had debridement of right foot ulcer on 07/04/2016. He is feeling much better and his BP is still uncontrolled. We restarted his Valsartan 320 mg qd and Metoprolol 25 mg BID; add Clonidine 0.1mg q6h prn. F/u PT/OT consult. F/u Gen. surgery for wound mgt. We increased Hydralazine 100 mg q8h PO to help optimize BP control. He had repeat debridement and amputation of right 5th toe and partial excision of 5th metatarsal on 07/09/2016. He had another debridement at bedside on 07/15/[address] Rosa. Pt refused both physical therapy and transitional care nurse on 07/17/2016 and they have signed off on him. Wound VAC applied today. Physical Exam Vital Signs: Temp Pulse Resp BP Pulse Ox 98.2 F 79 24 H 143/54 H 94 07/18/16 11:42 07/18/16 14:00 07/18/16 11:42 07/18/16 11:42 07/18/16 11:42 Intake & Output 07/17/16 07/18/16 07/19/16 06:59 06:59 06:59 Intake Total 3092 2820 118 Output Total 101 1850 0 Balance 2991 970 118 Weight 130.7 kg 128.5 kg General appearance: PRESENT: no acute distress, morbidly obese, well-developed, well-nourished Head exam: PRESENT: atraumatic, normocephalic Eye exam: PRESENT: EOMI, PERRLA Ear exam: PRESENT: normal external ear exam, TM's normal bilaterally Mouth exam: PRESENT: neck supple, tongue midline Neck exam: PRESENT: full ROM Respiratory exam: PRESENT: decreased breath sounds Cardiovascular exam: PRESENT: irregular rhythm, +S1, +S2 Pulses: PRESENT: +1 pedal pulses bilateral GI/Abdominal exam: PRESENT: normal bowel sounds, soft Neurological exam: PRESENT: alert, awake, oriented to person, oriented to place , oriented to time Psychiatric exam: PRESENT: normal mood Results Laboratory Results: 07/18/16 05:26 07/18/16 05:26 07/18/16 07/18/16 05:26 05:26 WBC 5.0 RBC 3.38 L Hgb 8.3 L Hct 26.4 L MCV 78 L MCH 24.7 L MCHC 31.6 L RDW 16.3 H Plt Count 219 Seg Neutrophils % 63.9 Lymphocytes % 21.2 Monocytes % 12.2 Eosinophils % 1.9 Basophils % 0.8 Absolute Neutrophils 3.2 Absolute Lymphocytes 1.1 Absolute Monocytes 0.6 Absolute Eosinophils 0.1 Absolute Basophils 0.0 Sodium 142.4 Potassium 4.2 Chloride 105 Carbon Dioxide 27 Anion Gap 10 BUN 12 Creatinine 1.76 H Est GFR ( Amer) 46 L Est GFR (Non-Af Amer) 38 L Glucose 122 H Calcium 8.6 Total Bilirubin 0.7 AST 39 ALT 51 Alkaline Phosphatase 123 Total Protein 7.0 Albumin 2.6 L 07/04/16 07/04/16 07/06/16 07:46 07:46 06:05 Creatine Kinase 2326 H 691 H NT-Pro-B Natriuret Pep 79538 H 07/07/16 07/08/16 05:43 05:43 Creatine Kinase 502 H 355 H NT-Pro-B Natriuret Pep Impressions: Chest X-Ray 07/03/16 16:13 IMPRESSION: No significant interval change. Cardiomegaly with mild pulmonary vascular congestion. No acute consolidations or pleural effusions are identified. Foot X-Ray 07/03/16 16:14 IMPRESSION: EROSIVE CHANGES INVOLVING THE HEAD OF THE 5TH METATARSAL AND BASE OF THE PROXIMAL PHALANX OF THE 5TH TOE. FINDINGS ARE SUSPICIOUS FOR OSTEOMYELITIS, PROBABLY CHRONIC. GENERAL SOFT TISSUE SWELLING. NO ACUTE FINDINGS. Lower Extremity MRI 07/04/16 09:00 IMPRESSION: 5th metatarsal and 5th proximal phalanx osteomyelitis Extensive deep tissue cellulitis right foot without gross evidence of abscess Assessment & Plan - Diagnosis (1) Osteomyelitis of right foot Qualifiers: Chronicity: acute Qualified Code(s): M86.171 - Other acute osteomyelitis, right ankle and foot Is this a current diagnosis for this admission?: YesPlan: Ct with Zosyn 3.375 G IV q6h; IV Vancomycin as per [facility] protocol; Percocet 5/325 1 Q6H prn; F/u blood and wound cultures; He had repeat debridement and amputation of 5th toe and 5th metatarsal on 07/09/[address] Blankenship. Wound VAC applied on 07/18/2016. (2) Hypertensive urgency Is this a current diagnosis for this admission?: YesPlan: Ct with Amlodipine 10 mg daily po; Diovan 320 mg daily po; Metoprolol 25 mg BID PO; Clonidine 0.1mg q6h prn po; we will increase Hydralazine to 100 mg q8h PO to optimize BP control. Ct with 2 G sodium diet. (3) Diabetic ketoacidosis Qualifiers: Diabetes mellitus type: type 2 Diabetes mellitus complication detail: without coma Qualified Code(s): E13.10 - Other specified diabetes mellitus with ketoacidosis without coma Is this a current diagnosis for this admission?: YesPlan: Ct with IV fluid normal saline at 125 cc/hr; Slidding scale with humalog insulin [facility] protocol; Lantus insulin 40 iu qhs sucut; 1800 calorie ADA diet. (4) Rhabdomyolysis Qualifiers: Rhabdomyolysis type: non-traumatic Qualified Code(s): M62.82 - Rhabdomyolysis Is this a current diagnosis for this admission?: YesPlan: Ct with IV fluids normal saline at 125cc/hour; Monitor chemistries and CK daily ; Strict input/out put chart. 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 (6) CHF exacerbation Qualifiers: Congestive heart failure type: unspecified congestive heart failure type Qualified Code(s): I50.9 - Heart failure, unspecified Is this a current diagnosis for this admission?: Yes (7) Atrial fibrillation Qualifiers: Atrial fibrillation type: paroxysmal Qualified Code(s): I48.0 - Paroxysmal atrial fibrillation Is this a current diagnosis for this admission?: YesPlan: Ct with Eliquis 5 mg BID po; Metoprolol 25 mg BID po. (8) COPD (chronic obstructive pulmonary disease) Qualifiers: COPD type: unspecified COPD Qualified Code(s): J44.9 - Chronic obstructive pulmonary disease, unspecified Is this a current diagnosis for this admission?: YesPlan: Ct with Duonebs q6h pr; Spiriva 18 mcg daily; Oxygen by N/C 2 L/min. (9) Hypertension Qualifiers: Hypertension type: essential hypertension Qualified Code(s): I10 - Essential (primary) hypertension Is this a current diagnosis for this admission?: Yes (10) Hyperlipidemia Qualifiers: Hyperlipidemia type: unspecified Qualified Code(s): E78.5 - Hyperlipidemia, unspecified Is this a current diagnosis for this admission?: YesPlan: Hold Atorvastatin due to rhabdomyolysis; ct with 200 mg cholesterol diet. (11) Chronic kidney disease (CKD) Is this a current diagnosis for this admission?: YesPlan: Avoid nephrotoxics; daily chemistries; daily wt; strict input/out put chart. (12) Obstructive sleep apnea Is this a current diagnosis for this admission?: YesPlan: Ct with CPAP at night. (13) Iron deficiency anemia Qualifiers: Iron deficiency anemia type: unspecified iron deficiency Qualified Code(s): D50.9 - Iron deficiency anemia, unspecified Is this a current diagnosis for this admission?: YesPlan: Ct with Ferrous sulfate 325 mg BID po; monitor CBC daily. (14) Vitamin D deficiency Is this a current diagnosis for this admission?: YesPlan: Ct with Vitamin D 27164va weekly. (15) GERD (gastroesophageal reflux disease) Qualifiers: Esophagitis presence: without esophagitis Qualified Code(s): K21.9 - Gastro-esophageal reflux disease without esophagitis Is this a current diagnosis for this admission?: YesPlan: Ct with Prevacid 30 mg daily po. (16) Prostate cancer Is this a current diagnosis for this admission?: NoPlan: Ct with Alfuzosin 10 mg qd po. (17) Morbid obesity Qualifiers: Obesity type: unspecified obesity type Qualified Code(s): E66.01 - Morbid (severe) obesity due to excess calories Is this a current diagnosis for this admission?: YesPlan: Cty with diet/exercise counseling. (18) DVT prophylaxis Is this a current diagnosis for this admission?: YesPlan: Ct with Eliquis 5 mg BID po; SCD.
[2016-07-18] MEDS: VANCOMYCIN HCL 1,500 MG in DEXTROSE 5%-WATER 250 ML IV SCH (21:01)
[2016-07-19] MEDS: HYDRALAZINE HCL 50 MG TABLET PO SCH ×3 (05:10→22:09)
[2016-07-19] MEDS: PIPERACILLIN SODIUM/TAZOBACTAM 3.375 GM in NORMAL SALINE 100 ML IV SCH ×2 (05:10→12:49)
[2016-07-19 06:40] LABS: ABSOLUTE BASOPHILS # (AUTO) 0.1 10^3/uL (0.0-0.2); ABSOLUTE LYMPHOCYTES (AUTO) 1.4 10^3/uL (0.5-4.7); ABSOLUTE MONOCYTES (AUTO) 0.7 10^3/uL (0.1-1.4); ABSOLUTE NEUT (AUTO) 4.1 10^3/uL (1.7-8.2); BASOPHILS % (AUTO) 1.1 % (0-2); EOSINOPHILS % (AUTO) 0.7 % (0-6); HEMATOCRIT 27.7 % (37.9-51.0); HEMOGLOBIN 8.6 g/dL (13.5-17.0); HGB HCT DIFFERENCE -1.9; LYMPHOCYTES % (AUTO) 21.7 % (13-45); MEAN CORPUSCULAR HEMOGLOBIN 24.4 pg (27.0-33.4); MEAN CORPUSCULAR HGB CONC 31.2 g/dL (32.0-36.0); MEAN CORPUSCULAR VOLUME 78 fl (80-97); MONOCYTES % (AUTO) 10.5 % (3-13); RED BLOOD COUNT 3.54 10^6/uL (4.35-5.55); RED CELL DISTRIBUTION WIDTH 16.6 % (11.5-14.0); WHITE BLOOD COUNT 6.2 10^3/uL (4.0-10.5)
[2016-07-19 06:58] LABS: ALANINE AMINOTRANSFERASE 54 U/L (21-72); ALBUMIN 3.3 g/dL (3.5-5.0); ALKALINE PHOSPHATASE 148 U/L (38-126); ANION GAP 14 (5-19); ASPARTATE AMINO TRANSFERASE 39 U/L (17-59); BILIRUBIN,TOTAL 0.9 mg/dL (0.2-1.3); BLOOD UREA NITROGEN 13 mg/dL (7-20); CARBON DIOXIDE 24 mmol/L (22-30); CHLORIDE 106 mmol/L (98-107); CREATININE RESULT 1.76 mg/dL (0.52-1.25); GLUCOSE 156 mg/dL (75-110); POTASSIUM 4.3 mmol/L (3.6-5.0); SODIUM 143.5 mmol/L (137-145); TOTAL PROTEIN 7.5 g/dL (6.3-8.2)
[2016-07-19] MEDS: INSULIN LISPRO 100 UNIT/ML 3 ML VIAL SUBCUT PRN ×3 (08:02→22:45)
[2016-07-19] MEDS: TIOTROPIUM BROMIDE DPI 5 CAP/KIT (18 MCG/CAP) IH SCH (09:41)
[2016-07-19] MEDS: VALSARTAN 160 MG TABLET PO SCH (09:42)
[2016-07-19] MEDS: LANSOPRAZOLE 30 MG TAB.RAP.DR PO SCH (09:42)
[2016-07-19] MEDS: ISOSORBIDE MONONITRATE 30 MG TAB.ER.24H PO SCH (09:43)
[2016-07-19] MEDS: AMLODIPINE BESYLATE 10 MG TABLET PO SCH (09:44)
[2016-07-19] MEDS: METOPROLOL TARTRATE 25 MG TABLET PO SCH ×2 (09:44→22:12)
[2016-07-19] MEDS: ASPIRIN 325 MG TABLET PO SCH (09:44)
[2016-07-19] MEDS: BUMETANIDE 1 MG TABLET PO SCH (09:45)
[2016-07-19] MEDS: POTASSIUM CHLORIDE 10 MEQ TABLET.SA PO SCH (09:45)
[2016-07-19] MEDS: APIXABAN 5 MG TABLET PO SCH (09:47)
[2016-07-19] MEDS: GLIPIZIDE 10 MG TABLET PO SCH (09:47)
[2016-07-19] MEDS: FERROUS SULFATE 325 MG TABLET PO SCH ×2 (09:48→18:08)
--- NOTE | 2016-07-19 13:35 | PDOC PROGRESS REPORT ---
Subjective Subjective:: The patient is sitting at bedside again. He is refusing to elevate legs because it makes his breathing worse. No other complaints. VAC is in place was placed yesterday. Physical Exam Vital Signs: Temp Pulse Resp BP Pulse Ox 97.5 F 64 24 H 159/97 H 94 07/19/16 11:51 07/19/16 11:51 07/19/16 11:51 07/19/16 11:51 07/19/16 11:51 Intake & Output 07/18/16 07/19/16 07/20/16 06:59 06:59 06:59 Intake Total 2820 2676 Output Total 1850 550 Balance 970 2126 Weight 128.5 kg 127.732 kg General appearance: PRESENT: obese Head exam: PRESENT: normocephalic Respiratory exam: PRESENT: other - Breathing is labored while in supine position. Extremities exam: PRESENT: other - Moderate to severe bilateral lower extremity edema. Right foot with VAC in place. Good seal. No erythema or induration around the wound edge. Neurological exam: PRESENT: alert, oriented to situation Psychiatric exam: PRESENT: normal mood Results Laboratory Results: 07/19/16 05:47 07/19/16 05:47 07/19/16 07/19/16 05:47 05:47 WBC 6.2 RBC 3.54 L Hgb 8.6 L Hct 27.7 L MCV 78 L MCH 24.4 L MCHC 31.2 L RDW 16.6 H Plt Count 224 Seg Neutrophils % 66.0 Lymphocytes % 21.7 Monocytes % 10.5 Eosinophils % 0.7 Basophils % 1.1 Absolute Neutrophils 4.1 Absolute Lymphocytes 1.4 Absolute Monocytes 0.7 Absolute Eosinophils 0.0 Absolute Basophils 0.1 Sodium 143.5 Potassium 4.3 Chloride 106 Carbon Dioxide 24 Anion Gap 14 BUN 13 Creatinine 1.76 H Est GFR ( Amer) 46 L Est GFR (Non-Af Amer) 38 L Glucose 156 H Calcium 9.0 Total Bilirubin 0.9 AST 39 ALT 54 Alkaline Phosphatase 148 H Total Protein 7.5 Albumin 3.3 L 07/04/16 07/04/16 07/06/16 07:46 07:46 06:05 Creatine Kinase 2326 H 691 H NT-Pro-B Natriuret Pep 38654 H 07/07/16 07/08/16 07/19/16 05:43 05:43 05:47 Creatine Kinase 502 H 355 H NT-Pro-B Natriuret Pep [id number] H Impressions: Chest X-Ray 07/03/16 16:13 IMPRESSION: No significant interval change. Cardiomegaly with mild pulmonary vascular congestion. No acute consolidations or pleural effusions are identified. Foot X-Ray 07/03/16 16:14 IMPRESSION: EROSIVE CHANGES INVOLVING THE HEAD OF THE 5TH METATARSAL AND BASE OF THE PROXIMAL PHALANX OF THE 5TH TOE. FINDINGS ARE SUSPICIOUS FOR OSTEOMYELITIS, PROBABLY CHRONIC. GENERAL SOFT TISSUE SWELLING. NO ACUTE FINDINGS. Lower Extremity MRI 07/04/16 09:00 IMPRESSION: 5th metatarsal and 5th proximal phalanx osteomyelitis Extensive deep tissue cellulitis right foot without gross evidence of abscess Assessment & Plan - Diagnosis (1) Diabetic ketoacidosis Qualifiers: Diabetes mellitus type: type 2 Diabetes mellitus complication detail: without coma Qualified Code(s): E13.10 - Other specified diabetes mellitus with ketoacidosis without coma Is this a current diagnosis for this admission?: Yes (2) Osteomyelitis Qualifiers: Osteomyelitis location: foot Laterality: right Chronicity: acute Qualified Code(s): M86.171 - Other acute osteomyelitis, right ankle and foot Is this a current diagnosis for this admission?: YesPlan: Status post right fifth toe and fifth metatarsal amputation. Wound is progressing nicely. VAC was placed yesterday. VAC is in place with good seal. Spoke to the patient extensively about control of his blood pressure, diabetes , congestive heart failure and bilateral lower extremity edema. Concerned about some degree of heart failure. Spoke with Dr. Mercedes as well as the hospitalist service which will be taking over this weekend. Stopped his maintenance IV fluids. Ordered a BNP, which is elevated. Touched base with hospitalist about elevated BNP. Encouraged the patient to consider discharge to rehabilitation instead of discharge home. Ordered a PICC line, as he will need long-term IV antibiotics. He grew MRSA from the wound as well as several other bacteria. (3) Anemia of chronic disease Is this a current diagnosis for this admission?: Yes (4) Atrial flutter Is this a current diagnosis for this admission?: Yes (6) CHF exacerbation Qualifiers: Congestive heart failure type: unspecified congestive heart failure type Qualified Code(s): I50.9 - Heart failure, unspecified Is this a current diagnosis for this admission?: Yes (7) Diabetes mellitus type 2 in obese Is this a current diagnosis for this admission?: Yes (8) COPD (chronic obstructive pulmonary disease) Qualifiers: COPD type: unspecified COPD Qualified Code(s): J44.9 - Chronic obstructive pulmonary disease, unspecified Is this a current diagnosis for this admission?: Yes (9) Osteomyelitis of right foot Qualifiers: Chronicity: acute Qualified Code(s): M86.171 - Other acute osteomyelitis, right ankle and foot Is this a current diagnosis for this admission?: Yes
[2016-07-19] MEDS ORDERED: FUROSEMIDE INJ/PF 20 MG/2 ML SDV IV ONE (14:30)
[2016-07-19] MEDS ORDERED: NORMAL SALINE 10 ML SDV (AFTER EACH USE) IV PRN (14:47)
--- NOTE | 2016-07-19 15:20 | PDOC PROGRESS REPORT ---
Subjective Progress Note for:: 07/19/16 Subjective:: Patient has had increased lower extremity swelling and increasing shortness of breath. He normally does not require oxygen but has become hypoxic in the hospital. He does require CPAP at home for obstructive sleep apnea. Patient denies fever, chills, headache, new focal weakness, chest pain, abdominal pain, nausea, vomiting, diarrhea, constipation. Physical Exam Vital Signs: Temp Pulse Resp BP Pulse Ox 97.5 F 64 24 H 159/97 H 94 07/19/16 11:51 07/19/16 11:51 07/19/16 11:51 07/19/16 11:51 07/19/16 11:51 Intake & Output 07/18/16 07/19/16 07/20/16 06:59 06:59 06:59 Intake Total 2820 2676 237 Output Total 1850 550 100 Balance 970 2126 137 Weight 128.5 kg 127.732 kg GENERAL: No acute distress HEENT: Conjunctiva clear, nonicteric, moist mucous membranes, no JVD, midline trachea RESPIRATORY: Bibasilar crackles CARDIAC: Irregular ABDOMEN: Soft, nondistended, nontender, positive bowel sounds, no rebound, no guarding EXTREMETIES: 3+ edema in bilateral lower extremities with chronic skin changes NEUROLOGIC: Alert, oriented to person/place/time, CN's grossly intact, no focal deficits SKIN: Skin changes in bilateral lower extremities consistent with chronic venous stasis, dressing to right foot intact PSYCH: Normal mood, normal affect Results Laboratory Results: 07/19/16 05:47 07/19/16 05:47 07/19/16 07/19/16 07/19/16 05:47 05:47 05:47 WBC 6.2 RBC 3.54 L Hgb 8.6 L Hct 27.7 L MCV 78 L MCH 24.4 L MCHC 31.2 L RDW 16.6 H Plt Count 224 Seg Neutrophils % 66.0 Lymphocytes % 21.7 Monocytes % 10.5 Eosinophils % 0.7 Basophils % 1.1 Absolute Neutrophils 4.1 Absolute Lymphocytes 1.4 Absolute Monocytes 0.7 Absolute Eosinophils 0.0 Absolute Basophils 0.1 Retic Count (auto) 3.51 H Absolute Retic 0.124 H Sodium 143.5 Potassium 4.3 Chloride 106 Carbon Dioxide 24 Anion Gap 14 BUN 13 Creatinine 1.76 H Est GFR ( Amer) 46 L Est GFR (Non-Af Amer) 38 L Glucose 156 H Calcium 9.0 Total Bilirubin 0.9 AST 39 ALT 54 Alkaline Phosphatase 148 H Total Protein 7.5 Albumin 3.3 L 07/04/16 07/04/16 07/06/16 07:46 07:46 06:05 Creatine Kinase 2326 H 691 H NT-Pro-B Natriuret Pep 76899 H 07/07/16 07/08/16 07/19/16 05:43 05:43 05:47 Creatine Kinase 502 H 355 H NT-Pro-B Natriuret Pep 95734 H Impressions: Foot X-Ray 07/03/16 16:14 IMPRESSION: EROSIVE CHANGES INVOLVING THE HEAD OF THE 5TH METATARSAL AND BASE OF THE PROXIMAL PHALANX OF THE 5TH TOE. FINDINGS ARE SUSPICIOUS FOR OSTEOMYELITIS, PROBABLY CHRONIC. GENERAL SOFT TISSUE SWELLING. NO ACUTE FINDINGS. Lower Extremity MRI 07/04/16 09:00 IMPRESSION: 5th metatarsal and 5th proximal phalanx osteomyelitis Extensive deep tissue cellulitis right foot without gross evidence of abscess Guidance Fluoroscopy 07/19/16 00:00 IMPRESSION: SUCCESSFUL PLACEMENT OF A 5 FR DUAL LUMEN 40 CM PICC IN THE left basilic VEIN. Interventional Vascular Procedure 07/19/16 00:00 IMPRESSION: SUCCESSFUL PLACEMENT OF A 5 FR DUAL LUMEN 40 CM PICC IN THE left basilic VEIN. PICC Line Insertion 07/19/16 00:00 IMPRESSION: SUCCESSFUL PLACEMENT OF A 5 FR DUAL LUMEN 40 CM PICC IN THE left basilic VEIN. Chest X-Ray 07/19/16 13:44 IMPRESSION: Left PICC line tip superior vena cava Diffuse airspace disease left lung, asymmetric edema versus pneumonia Assessment & Plan - Diagnosis (1) Acute hypoxemic respiratory failure Is this a current diagnosis for this admission?: YesPlan: Continue oxygen supplementation to maintain O2 sat greater than 93%. (2) Acute on chronic diastolic congestive heart failure Is this a current diagnosis for this admission?: YesPlan: Patient has acutely decompensated congestive heart failure with reported diastolic dysfunction. There is no echocardiogram in electronic medical record. I will check echocardiogram. Discontinue IV fluids. Start Lasix 40 mg IV every 12 hours. Monitor strict I's/O. Follow-up chest x-ray. Continue metoprolol tartrate 25 mg twice daily. Patient is followed by Dr. Orourke as an outpatient. (3) Atrial fibrillation Qualifiers: Atrial fibrillation type: paroxysmal Qualified Code(s): I48.0 - Paroxysmal atrial fibrillation Is this a current diagnosis for this admission?: YesPlan: Continue metoprolol. Continue Eliquis (this may need dose adjustment if renal function worsens). (4) Osteomyelitis of right foot Qualifiers: Chronicity: acute Qualified Code(s): M86.171 - Other acute osteomyelitis, right ankle and foot Is this a current diagnosis for this admission?: YesPlan: Status post right fifth toe and fifth metatarsal amputation. Surgery following. VAC was placed yesterday. Wound culture with Proteus, Morganella, enterococcus, MRSA. Discontinue Zosyn and vancomycin. Start ertapenem and Zyvox. PICC line has been placed for prolonged antibiotic course. (5) Cellulitis of foot, right Is this a current diagnosis for this admission?: Yes (6) Chronic kidney disease (CKD) Is this a current diagnosis for this admission?: YesPlan: Patient has acute kidney injury/chronic kidney disease stage III. I will discontinue Diovan for now due to worsening renal function. Treat decompensated CHF as mentioned above. Monitor renal function closely with aggressive diuresis. Discontinue IV fluids. (7) Iron deficiency anemia Qualifiers: Iron deficiency anemia type: unspecified iron deficiency Qualified Code(s): D50.9 - Iron deficiency anemia, unspecified Is this a current diagnosis for this admission?: YesPlan: Check anemia panel. Monitor H&H for stability. (8) Type 2 diabetes mellitus with hyperglycemia Qualifiers: Diabetes mellitus exterminator termite insulin use: unspecified exterminator termite insulin use status Qualified Code(s): E11.65 - Type 2 diabetes mellitus with hyperglycemia Is this a current diagnosis for this admission?: YesPlan: Continue glipizide. Continue sliding scale insulin. (9) Vitamin D deficiency Is this a current diagnosis for this admission?: Yes (10) Prostate cancer Is this a current diagnosis for this admission?: Yes (11) COPD (chronic obstructive pulmonary disease) Qualifiers: COPD type: unspecified COPD Qualified Code(s): J44.9 - Chronic obstructive pulmonary disease, unspecified Is this a current diagnosis for this admission?: Yes (12) Hypertension Qualifiers: Hypertension type: essential hypertension Qualified Code(s): I10 - Essential (primary) hypertension Is this a current diagnosis for this admission?: YesPlan: Continue Norvasc, metoprolol, hydralazine. Discontinue Diovan secondary to worsening renal function. (13) Obstructive sleep apnea Is this a current diagnosis for this admission?: YesPlan: Patient has home CPAP unit but does not have this device in the hospital. - Time Time Spent with patient: 35 or more minutes - Inpatient Certification Based on my medical assessment, after consideration of the patient's comorbidities, presenting symptoms, or acuity I expect that the services needed warrant INPATIENT care.: Yes I certify that my determination is in accordance with my understanding of Medicare's requirements for reasonable and necessary INPATIENT services [42 CFR 412.3e].: Yes Medical Necessity: Need For Continuous Telemetry Monitoring, Need for IV Antibiotics
[2016-07-19] MEDS: ERTAPENEM SODIUM 1 GM in NORMAL SALINE 50 ML IV SCH (18:08)
[2016-07-19] MEDS ORDERED: VANCOMYCIN HCL 1,000 MG in DEXTROSE 5%-WATER 250 ML IV SCH (22:00)
[2016-07-19] MEDS: FUROSEMIDE INJ/PF 20 MG/2 ML SDV IV SCH (22:13)
[2016-07-19] MEDS: LINEZOLID 300 ML IV SCH (22:17)
[2016-07-19] MEDS: NORMAL SALINE 10 ML SDV (SCHEDULED) IV SCH (22:23)
[2016-07-20] MEDS: CLONIDINE HCL 0.1 MG TABLET PO PRN ×2 (04:41→12:07)
[2016-07-20] MEDS: ACETAMINOPHEN 325 MG TABLET PO PRN (05:47)
[2016-07-20] MEDS: HYDRALAZINE HCL 50 MG TABLET PO SCH ×3 (05:56→21:59)
[2016-07-20 06:14] LABS: ABSOLUTE LYMPHOCYTES (AUTO) 1.2 10^3/uL (0.5-4.7); ABSOLUTE MONOCYTES (AUTO) 0.5 10^3/uL (0.1-1.4); ABSOLUTE NEUT (AUTO) 4.5 10^3/uL (1.7-8.2); BASOPHILS % (AUTO) 0.6 % (0-2); EOSINOPHILS % (AUTO) 0.1 % (0-6); HEMATOCRIT 26.7 % (37.9-51.0); HEMOGLOBIN 8.4 g/dL (13.5-17.0); HGB HCT DIFFERENCE -1.5; LYMPHOCYTES % (AUTO) 18.8 % (13-45); MEAN CORPUSCULAR HEMOGLOBIN 24.6 pg (27.0-33.4); MEAN CORPUSCULAR HGB CONC 31.4 g/dL (32.0-36.0); MEAN CORPUSCULAR VOLUME 79 fl (80-97); RED CELL DISTRIBUTION WIDTH 17.1 % (11.5-14.0); SEGMENTED NEUTROPHILS % (AUTO) 72.5 % (42-78); WHITE BLOOD COUNT 6.2 10^3/uL (4.0-10.5)
[2016-07-20 06:38] LABS: ALANINE AMINOTRANSFERASE 48 U/L (21-72); ALKALINE PHOSPHATASE 132 U/L (38-126); ANION GAP 14 (5-19); ASPARTATE AMINO TRANSFERASE 36 U/L (17-59); BILIRUBIN,TOTAL 0.8 mg/dL (0.2-1.3); BLOOD UREA NITROGEN 16 mg/dL (7-20); CALCIUM 8.8 mg/dL (8.4-10.2); CARBON DIOXIDE 25 mmol/L (22-30); CHLORIDE 105 mmol/L (98-107); GLUCOSE 173 mg/dL (75-110); MAGNESIUM 1.9 mg/dL (1.6-2.3); SODIUM 143.8 mmol/L (137-145); TOTAL PROTEIN 7.6 g/dL (6.3-8.2)
[2016-07-20] MEDS: GLIPIZIDE 10 MG TABLET PO SCH (08:18)
[2016-07-20] MEDS: INSULIN LISPRO 100 UNIT/ML 3 ML VIAL SUBCUT PRN ×4 (08:18→21:59)
[2016-07-20] MEDS: FERROUS SULFATE 325 MG TABLET PO SCH ×2 (08:18→16:52)
[2016-07-20] MEDS: POTASSIUM CHLORIDE 10 MEQ TABLET.SA PO SCH (09:25)
[2016-07-20] MEDS: AMLODIPINE BESYLATE 10 MG TABLET PO SCH (09:25)
[2016-07-20] MEDS: ASPIRIN 325 MG TABLET PO SCH (09:25)
[2016-07-20] MEDS: METOPROLOL TARTRATE 25 MG TABLET PO SCH ×2 (09:25→22:00)
[2016-07-20] MEDS: ISOSORBIDE MONONITRATE 30 MG TAB.ER.24H PO SCH (09:25)
[2016-07-20] MEDS: LANSOPRAZOLE 30 MG TAB.RAP.DR PO SCH (09:25)
[2016-07-20] MEDS: APIXABAN 5 MG TABLET PO SCH ×2 (09:25→16:51)
[2016-07-20] MEDS: FUROSEMIDE INJ/PF 20 MG/2 ML SDV IV SCH ×2 (09:26→21:59)
[2016-07-20] MEDS: NORMAL SALINE 10 ML SDV (SCHEDULED) IV SCH ×2 (09:26→22:08)
[2016-07-20] MEDS: TIOTROPIUM BROMIDE DPI 5 CAP/KIT (18 MCG/CAP) IH SCH (09:26)
[2016-07-20] MEDS: LINEZOLID 300 ML IV SCH ×2 (09:27→22:08)
--- NOTE | 2016-07-20 10:43 | PROGRESS NOTE E ---
Progress Note NAME: CHARLA WEBB : 1935 AGE: 80Y DATE: 07/20/2016 ROOM: 326 SUBJECTIVE: The patient is a pleasant 80-year-old male who had chronic lower extremity swelling. The patient had a history of osteomyelitis of the right foot, iron deficiency anemia, type-2 diabetes. He was admitted with osteomyelitis of the right foot. He is on antibiotic and he had wound debridement. OBJECTIVE: GENERAL: The patient is lying in bed, comfortable, not in distress. The patient is very obese. VITAL SIGNS: Temperature 97.6, heart rate 49, respiratory rate 18, blood pressure 169/52, saturation is 98% on 3 L. HEENT: Head normocephalic, atraumatic. Pupils are round, reactive to light and accommodation bilaterally. Ears: Tympanic membranes are intact bilaterally. NECK: No thyromegaly. No lymphadenopathy. CARDIOVASCULAR: Normal S1, S2. Regular rate and rhythm. No murmur. No gallops. RESPIRATORY: Lungs are clear. ABDOMEN: Obese. Bowel sounds active. MUSCULOSKELETAL: Swollen. NEUROLOGICAL: Awake, alert. SKIN: Intact. LABORATORY DATA: White blood count 6.2, hemoglobin 8.4, hematocrit 26.7, creatinine 1.8, sodium 142. ASSESSMENT: 1. ACUTE HYPOXIC RESPIRATORY FAILURE. 2. [id number] DIASTOLIC CONGESTIVE HEART FAILURE. 3. ATRIAL FIBRILLATION. 4. CELLULITIS OF THE RIGHT FOOT. 5. OSTEOMYELITIS OF THE RIGHT FOOT. 6. CHRONIC KIDNEY DISEASE STAGE 3. 7. IRON DEFICIENCY ANEMIA. 8. 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 9. VITAMIN D DEFICIENCY. 10. PROSTATE CANCER. 11. COPD. 12. HYPERTENSION. 13. OBSTRUCTIVE SLEEP APNEA. PLAN: 1. Continue antibiotics. 2. Surgery on case for wound debridement and a wound VAC was placed. MEDICAL NECESSITY: The patient is expected to stay here, as he had a wound infection with osteomyelitis and he is on IV antibiotics. This qualifies for inpatient status and he will need wound debridement. TIME SPENT: Thirty-five minutes. DICTATING PHYSICIAN: ORTIZ MORAN M.D. [id number] PHY#: [id number] ID: [id number] JOB#: [id number] ACCT: [id number] cc: >
--- NOTE | 2016-07-20 13:34 | XCELERA REPORT ---
[address] [address] Transthoracic Echocardiogram Report Name: CHRALA WEBB JR Age: 80 yrs Gender: Male : 1935 Patient Status: Inpatient Patient Location: 3S\S\326\S\A Study Date: 07/19/2016 06:41 PM Height: 73 in Weight: 281 lb BSA: 2.5 m2 Procedure: A complete two-dimensional transthoracic echocardiogram was performed (2D, M-mode, spectral and color flow Doppler). The study was technically difficult with many images being suboptimal in quality. Reason For Study: CHF Ordering Physician: SHAYY PRATT Performed By: Eva Robertson Interpretation Summary The left ventricular ejection fraction is normal. There is mild concentric left ventricular hypertrophy. The left ventricle is grossly normal size. Doppler measurements suggest reversible restrictive left ventricular relaxation, which is associated with grade III/IV or moderate diastolic dysfunction Wall motion cannot be accurately commented on, but no definite regional wall motion abnormalities noted. The right ventricle is moderately dilated. There is normal right ventricular wall thickness. The right atrium is mildly dilated. The left atrium is moderately dilated. There is no mitral valve stenosis. There is a mild to moderate amount of mitral regurgitation There is no aortic valve stenosis No aortic regurgitation is present. There is a trace to mild amount of tricuspid regurgitation There is moderate pulmonary hypertension by echo Right ventricular systolic pressure is estimated to be elevated at 50- 60mmHg. There is no pericardial effusion. MMode/2D Measurements \T\ Calculations RVDd: 3.7 cm LVIDd: 4.9 cmFS: 34.1 % Ao root diam: 3.2 cm IVSd: 1.4 cm LVIDs: 3.2 cmEDV(Teich): 110.6 ml LVPWd: 1.3 cmESV(Teich): 41.1 ml Ao root area: 7.9 cm2 EF(Teich): 62.9 % LA dimension: 4.7 cm LVOT diam: 2.0 cm LVOT area: 3.2 cm2 Doppler Measurements \T\ Calculations MV E max radha: MV P1/2t max radha: Ao V2 max: LV V1 max P.6 cm/sec 156.1 cm/sec 149.5 cm/sec 5.3 mmHg MV A max radha: MV P1/2t: 41.2 msec Ao max PG: LV V1 max: 71.0 cm/sec MVA(P1/2t): 5.3 cm2 8.9 mmHg 115.2 cm/sec MV E/A: 2.2 MV dec slope: YENIFER(V,D): 2.4 cm2 1110 cm/sec2 MV dec time: 0.15 sec MR max radha: PA V2 max: TR max radha: 506.8 cm/sec 82.9 cm/sec 369.2 cm/sec MR max PG: PA max P.8 mmHg TR max P.8 mmHg 54.5 mmHg Left Ventricle The left ventricle is grossly normal size. There is mild concentric left ventricular hypertrophy. The left ventricular ejection fraction is normal. Doppler measurements suggest reversible restrictive left ventricular relaxation, which is associated with grade III/IV or moderate diastolic dysfunction. Wall motion cannot be accurately commented on, but no definite regional wall motion abnormalities noted. Right Ventricle The right ventricle is moderately dilated. There is normal right ventricular wall thickness. The right ventricular systolic function is normal. Atria The right atrium is mildly dilated. The left atrium is moderately dilated. Interarterial septum not well visualized and not well dopplered. Cannot comment on ASD/PFO presence. Mitral Valve The mitral valve is grossly normal. There is no mitral valve stenosis. There is a mild to moderate amount of mitral regurgitation. Aortic Valve The aortic valve is sclerotic, but shows no functional abnormality. There is no aortic valve stenosis. No aortic regurgitation is present. Tricuspid Valve The tricuspid valve is not well visualized secondary to technical limitations. There is no tricuspid stenosis. There is a trace to mild amount of tricuspid regurgitation. There is moderate pulmonary hypertension by echo. Right ventricular systolic pressure is estimated to be elevated at 50-60mmHg. Pulmonic Valve The pulmonic valve is not well visualized. Great Vessels The aortic root is not well visualized. The inferior vena cava appeared normal and decreased < 50% with respiration (RAP 10-15 mmHg). Effusions There is no pericardial effusion. : SHAYY PRATT > Rehan Lloyd
[2016-07-20] MEDS: ERTAPENEM SODIUM 1 GM in NORMAL SALINE 50 ML IV SCH (16:52)
--- NOTE | 2016-07-20 19:05 | PDOC PROGRESS REPORT ---
Physical Exam Vital Signs: Temp Pulse Resp BP Pulse Ox 97.6 F 49 L 18 169/52 H 98 07/20/16 07:16 07/20/16 07:16 07/20/16 07:16 07/20/16 07:16 07/20/16 07:16 Intake & Output 07/19/16 07/20/16 07/21/16 06:59 06:59 06:59 Intake Total 2676 1671 Output Total 550 450 Balance 2126 1221 Weight 127.732 kg 127.051 kg Extremities exam: PRESENT: other - right leg and foot, chronic edema with ulcer in the foot clean, wound vac in place Results Laboratory Results: 07/20/16 05:59 07/20/16 05:59 07/19/16 07/19/16 07/20/16 05:47 05:47 05:59 WBC RBC Hgb Hct MCV MCH MCHC RDW Plt Count Seg Neutrophils % Lymphocytes % Monocytes % Eosinophils % Basophils % Absolute Neutrophils Absolute Lymphocytes Absolute Monocytes Absolute Eosinophils Absolute Basophils Retic Count (auto) 3.51 H Absolute Retic 0.124 H Sodium 143.8 Potassium 4.0 Chloride 105 Carbon Dioxide 25 Anion Gap 14 BUN 16 Creatinine 1.80 H Est GFR ( Amer) 44 L Est GFR (Non-Af Amer) 37 L Glucose 173 H Calcium 8.8 Magnesium 1.9 Iron 56 TIBC 214 L % Saturation 26 Ferritin 223.00 Total Bilirubin 0.8 AST 36 ALT 48 Alkaline Phosphatase 132 H Total Protein 7.6 Albumin 3.0 L Vitamin B12 > 1000.0 H Folate 17.00 07/20/16 05:59 WBC 6.2 RBC 3.40 L Hgb 8.4 L Hct 26.7 L MCV 79 L MCH 24.6 L MCHC 31.4 L RDW 17.1 H Plt Count 212 Seg Neutrophils % 72.5 Lymphocytes % 18.8 Monocytes % 8.0 Eosinophils % 0.1 Basophils % 0.6 Absolute Neutrophils 4.5 Absolute Lymphocytes 1.2 Absolute Monocytes 0.5 Absolute Eosinophils 0.0 Absolute Basophils 0.0 Retic Count (auto) Absolute Retic Sodium Potassium Chloride Carbon Dioxide Anion Gap BUN Creatinine Est GFR ( Amer) Est GFR (Non-Af Amer) Glucose Calcium Magnesium Iron TIBC % Saturation Ferritin Total Bilirubin AST ALT Alkaline Phosphatase Total Protein Albumin Vitamin B12 Folate 07/04/16 07/04/16 07/06/16 07:46 07:46 06:05 Creatine Kinase 2326 H 691 H NT-Pro-B Natriuret Pep 06151 H 07/07/16 07/08/16 07/19/16 05:43 05:43 05:47 Creatine Kinase 502 H 355 H NT-Pro-B Natriuret Pep 60823 H Impressions: Foot X-Ray 07/03/16 16:14 IMPRESSION: EROSIVE CHANGES INVOLVING THE HEAD OF THE 5TH METATARSAL AND BASE OF THE PROXIMAL PHALANX OF THE 5TH TOE. FINDINGS ARE SUSPICIOUS FOR OSTEOMYELITIS, PROBABLY CHRONIC. GENERAL SOFT TISSUE SWELLING. NO ACUTE FINDINGS. Lower Extremity MRI 07/04/16 09:00 IMPRESSION: 5th metatarsal and 5th proximal phalanx osteomyelitis Extensive deep tissue cellulitis right foot without gross evidence of abscess Guidance Fluoroscopy 07/19/16 00:00 IMPRESSION: SUCCESSFUL PLACEMENT OF A 5 FR DUAL LUMEN 40 CM PICC IN THE left basilic VEIN. Interventional Vascular Procedure 07/19/16 00:00 IMPRESSION: SUCCESSFUL PLACEMENT OF A 5 FR DUAL LUMEN 40 CM PICC IN THE left basilic VEIN. PICC Line Insertion 07/19/16 00:00 IMPRESSION: SUCCESSFUL PLACEMENT OF A 5 FR DUAL LUMEN 40 CM PICC IN THE left basilic VEIN. Chest X-Ray 07/20/16 06:00 IMPRESSION: Fluid overload or congestive failure with bilateral alveolar and interstitial edema, increased compared to 07/19/2016.
[2016-07-21] MEDS: CLONIDINE HCL 0.1 MG TABLET PO PRN (03:35)
[2016-07-21 04:59] LABS: ABSOLUTE EOSINOPHILS # (AUTO) 0.1 10^3/uL (0.0-0.6); ABSOLUTE LYMPHOCYTES (AUTO) 1.1 10^3/uL (0.5-4.7); ABSOLUTE MONOCYTES (AUTO) 0.6 10^3/uL (0.1-1.4); ABSOLUTE NEUT (AUTO) 3.7 10^3/uL (1.7-8.2); BASOPHILS % (AUTO) 0.8 % (0-2); HEMATOCRIT 26.9 % (37.9-51.0); HEMOGLOBIN 8.4 g/dL (13.5-17.0); HGB HCT DIFFERENCE -1.7; LYMPHOCYTES % (AUTO) 20.3 % (13-45); MEAN CORPUSCULAR HEMOGLOBIN 24.7 pg (27.0-33.4); MEAN CORPUSCULAR HGB CONC 31.3 g/dL (32.0-36.0); MEAN CORPUSCULAR VOLUME 79 fl (80-97); MONOCYTES % (AUTO) 10.2 % (3-13); RED BLOOD COUNT 3.42 10^6/uL (4.35-5.55); RED CELL DISTRIBUTION WIDTH 17.4 % (11.5-14.0); SEGMENTED NEUTROPHILS % (AUTO) 67.7 % (42-78); WHITE BLOOD COUNT 5.4 10^3/uL (4.0-10.5)
[2016-07-21 05:23] LABS: ALANINE AMINOTRANSFERASE 45 U/L (21-72); ALBUMIN 3.3 g/dL (3.5-5.0); ALKALINE PHOSPHATASE 139 U/L (38-126); ANION GAP 13 (5-19); ASPARTATE AMINO TRANSFERASE 32 U/L (17-59); BILIRUBIN,TOTAL 0.6 mg/dL (0.2-1.3); BLOOD UREA NITROGEN 16 mg/dL (7-20); CALCIUM 8.7 mg/dL (8.4-10.2); CARBON DIOXIDE 27 mmol/L (22-30); CHLORIDE 103 mmol/L (98-107); GLUCOSE 169 mg/dL (75-110); POTASSIUM 3.9 mmol/L (3.6-5.0); TOTAL PROTEIN 7.2 g/dL (6.3-8.2)
[2016-07-21] MEDS: HYDRALAZINE HCL 50 MG TABLET PO SCH ×3 (05:30→21:10)
[2016-07-21] MEDS: FERROUS SULFATE 325 MG TABLET PO SCH ×2 (08:24→17:10)
[2016-07-21] MEDS: INSULIN LISPRO 100 UNIT/ML 3 ML VIAL SUBCUT PRN ×4 (08:25→22:14)
[2016-07-21] MEDS: GLIPIZIDE 10 MG TABLET PO SCH (08:25)
[2016-07-21] MEDS: POTASSIUM CHLORIDE 10 MEQ TABLET.SA PO SCH (10:59)
[2016-07-21] MEDS: LANSOPRAZOLE 30 MG TAB.RAP.DR PO SCH (10:59)
[2016-07-21] MEDS: AMLODIPINE BESYLATE 10 MG TABLET PO SCH (10:59)
[2016-07-21] MEDS: APIXABAN 5 MG TABLET PO SCH ×2 (10:59→17:10)
[2016-07-21] MEDS: METOPROLOL TARTRATE 25 MG TABLET PO SCH ×2 (10:59→22:15)
[2016-07-21] MEDS: ASPIRIN 325 MG TABLET PO SCH (10:59)
[2016-07-21] MEDS: NORMAL SALINE 10 ML SDV (SCHEDULED) IV SCH ×2 (11:00→21:16)
[2016-07-21] MEDS: FUROSEMIDE INJ/PF 20 MG/2 ML SDV IV SCH ×2 (11:00→21:11)
[2016-07-21] MEDS: TIOTROPIUM BROMIDE DPI 5 CAP/KIT (18 MCG/CAP) IH SCH (11:00)
[2016-07-21] MEDS: ISOSORBIDE MONONITRATE 30 MG TAB.ER.24H PO SCH (11:01)
[2016-07-21] MEDS: LINEZOLID 300 ML IV SCH ×2 (11:01→21:15)
--- NOTE | 2016-07-21 11:53 | PROGRESS NOTE E ---
Progress Note NAME: CHARLA WEBB : 1935 AGE: 80Y DATE: 07/21/2016 ROOM: 326 SUBJECTIVE: The patient is a pleasant 80-year-old male who has a past medical history of diabetes, iron deficiency anemia, COPD, morbid obesity, sleep apnea. Admitted with wound to the right foot suspicious for osteomyelitis and he had a wound VAC placed as well as he also is on IV antibiotic. He is doing better today. OBJECTIVE: GENERAL: The patient looks very obese. VITAL SIGNS: Temperature 97.6, heart rate 58, blood pressure 162/60, saturation is 97% on 3 L, respiratory is 16. HEENT: Head normocephalic, atraumatic. Ears: Tympanic membranes are intact bilaterally. No discharge from the ears. Eyes: Pupils are round, reactive to light and accommodation bilaterally. Conjunctive is clear. Extraocular movements intact. Nose: There is no discharge from the nose. NECK: Supple. No JVD. No thyromegaly. No lymphadenopathy. RESPIRATORY: Lungs are clear. Good air entry bilaterally. No deformity of the chest. CARDIOVASCULAR: Normal S1, S2. Edema +1-2 edema. No murmur. ABDOMEN: Very obese. No organomegaly. Nontender. No guarding. Bowel sounds active. MUSCULOSKELETAL: He has edema and wound in the right leg. NEUROLOGICAL: Awake, alert, grossly intact. No focal deficit. HEMOCYTIC/LYMPHACYTIC: No lymphadenopathy. Had anemia. LABORATORY DATA: White blood count 5.9, hemoglobin 8.4, hematocrit 26.9. Sodium 143, potassium 3.9, chloride 103, creatinine is 1.8. ASSESSMENT: 1. ACUTE HYPOXIC RESPIRATORY FAILURE. 2. [id number] DIASTOLIC CONGESTIVE HEART FAILURE. 3. ATRIAL FIBRILLATION. 4. CELLULITIS OF THE RIGHT FOOT POSSIBLE OSTEOMYELITIS. 5. OSTEOMYELITIS OF THE RIGHT FOOT STATUS POST WOUND VAC PLACEMENT. 6. CHRONIC KIDNEY DISEASE STAGE 3. 7. IRON DEFICIENCY ANEMIA. 8. TYPE 2 DIABETES POORLY CONTROLLED WITH PERIPHERAL VASCULAR DISEASE. 9. VITAMIN D DEFICIENCY. 10. PROSTATE CANCER. 11. COPD. 12. HYPERTENSION. 13. OBSTRUCTIVE SLEEP APNEA. 14. MORBID OBESITY. PLAN: 1. Continue antibiotics as the patient is now on Zyvox IV. Continue Zyvox IV. 2. Adjust his blood pressure medication. His blood pressure is still high. MEDICAL NECESSITY: The patient is on IV antibiotic. DICTATING PHYSICIAN: ORTIZ MORAN M.D. [id number] PHY#: [id number] ID: [id number] JOB#: [id number] ACCT: [id number] cc: >
--- NOTE | 2016-07-21 14:05 | PDOC PROGRESS REPORT ---
Subjective Progress Note for:: 07/21/16 Subjective:: feels comfortable , no pain Physical Exam Vital Signs: Temp Pulse Resp BP Pulse Ox 97.3 F 53 L 20 164/67 H 99 07/21/16 11:37 07/21/16 11:37 07/21/16 11:37 07/21/16 11:37 07/21/16 11:37 Intake & Output 07/20/16 07/21/16 07/22/16 06:59 06:59 06:59 Intake Total 1671 1700 Output Total 450 125 Balance 1221 1575 Weight 127.051 kg 130.2 kg Extremities exam: PRESENT: other - Right foot - wound clean , granulating. Wound vac and dressings changed . Chronic Lymphadema Results Laboratory Results: 07/21/16 03:35 07/21/16 03:35 07/19/16 07/21/16 07/21/16 05:47 03:35 03:35 WBC 5.4 RBC 3.42 L Hgb 8.4 L Hct 26.9 L MCV 79 L MCH 24.7 L MCHC 31.3 L RDW 17.4 H Plt Count 222 Seg Neutrophils % 67.7 Lymphocytes % 20.3 Monocytes % 10.2 Eosinophils % 1.0 Basophils % 0.8 Absolute Neutrophils 3.7 Absolute Lymphocytes 1.1 Absolute Monocytes 0.6 Absolute Eosinophils 0.1 Absolute Basophils 0.0 Sodium 143.0 Potassium 3.9 Chloride 103 Carbon Dioxide 27 Anion Gap 13 BUN 16 Creatinine 1.80 H Est GFR ( Amer) 44 L Est GFR (Non-Af Amer) 37 L Glucose 169 H Calcium 8.7 Transferrin 155 L Total Bilirubin 0.6 AST 32 ALT 45 Alkaline Phosphatase 139 H Total Protein 7.2 Albumin 3.3 L 07/04/16 07/04/16 07/06/16 07:46 07:46 06:05 Creatine Kinase 2326 H 691 H NT-Pro-B Natriuret Pep 46326 H 07/07/16 07/08/16 07/19/16 05:43 05:43 05:47 Creatine Kinase 502 H 355 H NT-Pro-B Natriuret Pep [id number] H Impressions: Foot X-Ray 07/03/16 16:14 IMPRESSION: EROSIVE CHANGES INVOLVING THE HEAD OF THE 5TH METATARSAL AND BASE OF THE PROXIMAL PHALANX OF THE 5TH TOE. FINDINGS ARE SUSPICIOUS FOR OSTEOMYELITIS, PROBABLY CHRONIC. GENERAL SOFT TISSUE SWELLING. NO ACUTE FINDINGS. Lower Extremity MRI 07/04/16 09:00 IMPRESSION: 5th metatarsal and 5th proximal phalanx osteomyelitis Extensive deep tissue cellulitis right foot without gross evidence of abscess Guidance Fluoroscopy 07/19/16 00:00 IMPRESSION: SUCCESSFUL PLACEMENT OF A 5 FR DUAL LUMEN 40 CM PICC IN THE left basilic VEIN. Interventional Vascular Procedure 07/19/16 00:00 IMPRESSION: SUCCESSFUL PLACEMENT OF A 5 FR DUAL LUMEN 40 CM PICC IN THE left basilic VEIN. PICC Line Insertion 07/19/16 00:00 IMPRESSION: SUCCESSFUL PLACEMENT OF A 5 FR DUAL LUMEN 40 CM PICC IN THE left basilic VEIN. Chest X-Ray 07/20/16 06:00 IMPRESSION: Fluid overload or congestive failure with bilateral alveolar and interstitial edema, increased compared to 07/19/2016.
[2016-07-21] MEDS: ERTAPENEM SODIUM 1 GM in NORMAL SALINE 50 ML IV SCH (17:10)
[2016-07-22] MEDS: CLONIDINE HCL 0.1 MG TABLET PO PRN (03:37)
[2016-07-22] MEDS: HYDRALAZINE HCL 50 MG TABLET PO SCH ×3 (05:05→22:47)
[2016-07-22 06:58] LABS: ABSOLUTE EOSINOPHILS # (AUTO) 0.1 10^3/uL (0.0-0.6); ABSOLUTE LYMPHOCYTES (AUTO) 1.1 10^3/uL (0.5-4.7); ABSOLUTE MONOCYTES (AUTO) 0.5 10^3/uL (0.1-1.4); ABSOLUTE NEUT (AUTO) 2.8 10^3/uL (1.7-8.2); EOSINOPHILS % (AUTO) 1.6 % (0-6); HEMATOCRIT 26.2 % (37.9-51.0); HEMOGLOBIN 8.1 g/dL (13.5-17.0); HGB HCT DIFFERENCE -1.9; LYMPHOCYTES % (AUTO) 23.9 % (13-45); MEAN CORPUSCULAR HEMOGLOBIN 24.7 pg (27.0-33.4); MEAN CORPUSCULAR VOLUME 79 fl (80-97); RED CELL DISTRIBUTION WIDTH 17.7 % (11.5-14.0); SEGMENTED NEUTROPHILS % (AUTO) 62.5 % (42-78); WHITE BLOOD COUNT 4.5 10^3/uL (4.0-10.5)
[2016-07-22 07:14] LABS: ALBUMIN 2.7 g/dL (3.5-5.0); ANION GAP 10 (5-19); BLOOD UREA NITROGEN 16 mg/dL (7-20); CALCIUM 8.6 mg/dL (8.4-10.2); CARBON DIOXIDE 30 mmol/L (22-30); CHLORIDE 103 mmol/L (98-107); CREATININE RESULT 1.84 mg/dL (0.52-1.25); GLUCOSE 127 mg/dL (75-110); PHOSPHORUS 4.2 mg/dL (2.5-4.5); POTASSIUM 3.8 mmol/L (3.6-5.0); SODIUM 142.6 mmol/L (137-145)
[2016-07-22] MEDS: GLIPIZIDE 10 MG TABLET PO SCH (08:00)
[2016-07-22] MEDS: FERROUS SULFATE 325 MG TABLET PO SCH ×2 (08:01→17:13)
--- NOTE | 2016-07-22 10:16 | PDOC PROGRESS REPORT ---
Subjective Progress Note for:: 07/22/16 Subjective:: No complaints Physical Exam Vital Signs: Temp Pulse Resp BP Pulse Ox 97.3 F 58 L 20 157/58 H 100 07/22/16 07:12 07/22/16 07:12 07/22/16 07:12 07/22/16 07:12 07/22/16 07:12 Intake & Output 07/21/16 07/22/16 07/23/16 06:59 06:59 06:59 Intake Total 1700 1015 Output Total 125 301 Balance 1575 714 Weight 130.2 kg 130 kg General appearance: PRESENT: no acute distress Extremities exam: PRESENT: other - VAC in place, good suction limited drainage Results Laboratory Results: 07/22/16 05:52 07/22/16 05:52 07/22/16 07/22/16 05:52 05:52 WBC 4.5 RBC 3.30 L Hgb 8.1 L Hct 26.2 L MCV 79 L MCH 24.7 L MCHC 31.0 L RDW 17.7 H Plt Count 203 Seg Neutrophils % 62.5 Lymphocytes % 23.9 Monocytes % 11.0 Eosinophils % 1.6 Basophils % 1.0 Absolute Neutrophils 2.8 Absolute Lymphocytes 1.1 Absolute Monocytes 0.5 Absolute Eosinophils 0.1 Absolute Basophils 0.0 Sodium 142.6 Potassium 3.8 Chloride 103 Carbon Dioxide 30 Anion Gap 10 BUN 16 Creatinine 1.84 H Est GFR ( Amer) 43 L Est GFR (Non-Af Amer) 36 L Glucose 127 H Calcium 8.6 Phosphorus 4.2 Albumin 2.7 L 07/04/16 07/04/16 07/06/16 07:46 07:46 06:05 Creatine Kinase 2326 H 691 H NT-Pro-B Natriuret Pep 19981 H 07/07/16 07/08/16 07/19/16 05:43 05:43 05:47 Creatine Kinase 502 H 355 H NT-Pro-B Natriuret Pep [id number] H Impressions: Foot X-Ray 07/03/16 16:14 IMPRESSION: EROSIVE CHANGES INVOLVING THE HEAD OF THE 5TH METATARSAL AND BASE OF THE PROXIMAL PHALANX OF THE 5TH TOE. FINDINGS ARE SUSPICIOUS FOR OSTEOMYELITIS, PROBABLY CHRONIC. GENERAL SOFT TISSUE SWELLING. NO ACUTE FINDINGS. Lower Extremity MRI 07/04/16 09:00 IMPRESSION: 5th metatarsal and 5th proximal phalanx osteomyelitis Extensive deep tissue cellulitis right foot without gross evidence of abscess Guidance Fluoroscopy 07/19/16 00:00 IMPRESSION: SUCCESSFUL PLACEMENT OF A 5 FR DUAL LUMEN 40 CM PICC IN THE left basilic VEIN. Interventional Vascular Procedure 07/19/16 00:00 IMPRESSION: SUCCESSFUL PLACEMENT OF A 5 FR DUAL LUMEN 40 CM PICC IN THE left basilic VEIN. PICC Line Insertion 07/19/16 00:00 IMPRESSION: SUCCESSFUL PLACEMENT OF A 5 FR DUAL LUMEN 40 CM PICC IN THE left basilic VEIN. Chest X-Ray 07/20/16 06:00 IMPRESSION: Fluid overload or congestive failure with bilateral alveolar and interstitial edema, increased compared to 07/19/2016. Assessment & Plan - Diagnosis (1) Cellulitis of foot, right Is this a current diagnosis for this admission?: Yes (2) Osteomyelitis of right foot Qualifiers: Chronicity: acute Qualified Code(s): M86.171 - Other acute osteomyelitis, right ankle and foot Is this a current diagnosis for this admission?: YesPlan: 1. Continue VAC therapy 2. [facility] with wound VAC in place 3. Patient needs to be on intravenous antibiotics or several more weeks to dress the deep soft tissue infection and osteomyelitis secondary to polymicrobial sepsis; patient does have a PICC line. 4. [facility] care
[2016-07-22] MEDS: LANSOPRAZOLE 30 MG TAB.RAP.DR PO SCH (10:36)
[2016-07-22] MEDS: ERGOCALCIFEROL (VITAMIN D2) 50000 UNIT (1.25 MG) CAPSULE PO SCH (10:36)
[2016-07-22] MEDS: ASPIRIN 325 MG TABLET PO SCH (10:36)
[2016-07-22] MEDS: POTASSIUM CHLORIDE 10 MEQ TABLET.SA PO SCH (10:36)
[2016-07-22] MEDS: APIXABAN 5 MG TABLET PO SCH ×2 (10:36→17:13)
[2016-07-22] MEDS: ISOSORBIDE MONONITRATE 30 MG TAB.ER.24H PO SCH (10:37)
[2016-07-22] MEDS: AMLODIPINE BESYLATE 10 MG TABLET PO SCH (10:37)
[2016-07-22] MEDS: FUROSEMIDE INJ/PF 20 MG/2 ML SDV IV SCH (10:37)
[2016-07-22] MEDS: METOPROLOL TARTRATE 25 MG TABLET PO SCH ×2 (10:37→22:48)
[2016-07-22] MEDS: NORMAL SALINE 10 ML SDV (SCHEDULED) IV SCH ×2 (10:38→22:50)
[2016-07-22] MEDS: LINEZOLID 300 ML IV SCH ×2 (10:38→22:49)
[2016-07-22] MEDS: TIOTROPIUM BROMIDE DPI 5 CAP/KIT (18 MCG/CAP) IH SCH (10:39)
[2016-07-22] MEDS: INSULIN LISPRO 100 UNIT/ML 3 ML VIAL SUBCUT PRN ×2 (13:44→22:47)
--- NOTE | 2016-07-22 16:45 | PDOC PROGRESS REPORT ---
Subjective Progress Note for:: 07/22/16 Subjective:: He had debridement of right foot ulcer on 07/04/2016. He is feeling much better and his BP is still uncontrolled. We restarted his Valsartan 320 mg qd and Metoprolol 25 mg BID; add Clonidine 0.1mg q6h prn. F/u PT/OT consult. F/u Gen. surgery for wound mgt. We increased Hydralazine 100 mg q8h PO to help optimize BP control. He had repeat debridement and amputation of right 5th toe and partial excision of 5th metatarsal on 07/09/2016. He had another debridement at bedside on 07/15/[address] Rosa. Pt refused both physical therapy and cricket coach on 07/17/2016 and they have signed off on him. Wound VAC applied on 07/18/2016. I followed up with pt's nurse and discharge concerning transfer to SNF. I left a message with manufacturing planner that pt does not have cancer presently and not on chemotherapy. Pt will be transferred to SNF as soon bed is available on wound VAC with PICC line for IV antibiotics. Physical Exam Vital Signs: Temp Pulse Resp BP Pulse Ox 97.4 F 57 L 21 H 169/58 H 100 07/22/16 11:29 07/22/16 14:00 07/22/16 11:29 07/22/16 11:29 07/22/16 11:29 Intake & Output 07/21/16 07/22/16 07/23/16 06:59 06:59 06:59 Intake Total 1700 1015 0 Output Total 125 301 Balance 1575 714 0 Weight 130.2 kg 130 kg General appearance: PRESENT: no acute distress, morbidly obese, well-developed, well-nourished Head exam: PRESENT: atraumatic, normocephalic Eye exam: PRESENT: EOMI, PERRLA Ear exam: PRESENT: normal external ear exam Mouth exam: PRESENT: moist, neck supple, tongue midline Neck exam: PRESENT: full ROM Respiratory exam: PRESENT: decreased breath sounds Cardiovascular exam: PRESENT: RRR, +S2 GI/Abdominal exam: PRESENT: normal bowel sounds, soft Neurological exam: PRESENT: alert, awake, oriented to person, oriented to place , oriented to time Psychiatric exam: PRESENT: normal mood Results Laboratory Results: 07/22/16 05:52 07/22/16 05:52 07/22/16 07/22/16 05:52 05:52 WBC 4.5 RBC 3.30 L Hgb 8.1 L Hct 26.2 L MCV 79 L MCH 24.7 L MCHC 31.0 L RDW 17.7 H Plt Count 203 Seg Neutrophils % 62.5 Lymphocytes % 23.9 Monocytes % 11.0 Eosinophils % 1.6 Basophils % 1.0 Absolute Neutrophils 2.8 Absolute Lymphocytes 1.1 Absolute Monocytes 0.5 Absolute Eosinophils 0.1 Absolute Basophils 0.0 Sodium 142.6 Potassium 3.8 Chloride 103 Carbon Dioxide 30 Anion Gap 10 BUN 16 Creatinine 1.84 H Est GFR ( Amer) 43 L Est GFR (Non-Af Amer) 36 L Glucose 127 H Calcium 8.6 Phosphorus 4.2 Albumin 2.7 L 07/04/16 07/04/16 07/06/16 07:46 07:46 06:05 Creatine Kinase 2326 H 691 H NT-Pro-B Natriuret Pep [id number] H 07/07/16 07/08/16 07/19/16 05:43 05:43 05:47 Creatine Kinase 502 H 355 H NT-Pro-B Natriuret Pep [id number] H Impressions: Foot X-Ray 07/03/16 16:14 IMPRESSION: EROSIVE CHANGES INVOLVING THE HEAD OF THE 5TH METATARSAL AND BASE OF THE PROXIMAL PHALANX OF THE 5TH TOE. FINDINGS ARE SUSPICIOUS FOR OSTEOMYELITIS, PROBABLY CHRONIC. GENERAL SOFT TISSUE SWELLING. NO ACUTE FINDINGS. Lower Extremity MRI 07/04/16 09:00 IMPRESSION: 5th metatarsal and 5th proximal phalanx osteomyelitis Extensive deep tissue cellulitis right foot without gross evidence of abscess Guidance Fluoroscopy 07/19/16 00:00 IMPRESSION: SUCCESSFUL PLACEMENT OF A 5 FR DUAL LUMEN 40 CM PICC IN THE left basilic VEIN. Interventional Vascular Procedure 07/19/16 00:00 IMPRESSION: SUCCESSFUL PLACEMENT OF A 5 FR DUAL LUMEN 40 CM PICC IN THE left basilic VEIN. PICC Line Insertion 07/19/16 00:00 IMPRESSION: SUCCESSFUL PLACEMENT OF A 5 FR DUAL LUMEN 40 CM PICC IN THE left basilic VEIN. Chest X-Ray 07/20/16 06:00 IMPRESSION: Fluid overload or congestive failure with bilateral alveolar and interstitial edema, increased compared to 07/19/2016. Assessment & Plan - Diagnosis (1) Osteomyelitis of right foot Qualifiers: Chronicity: acute Qualified Code(s): M86.171 - Other acute osteomyelitis, right ankle and foot Is this a current diagnosis for this admission?: YesPlan: Ct with ERtapenem 1 daily IV; Linezolid 600 mg q12h IV; Percocet 5/325 1 Q6H prn ; F/u blood and wound cultures; He had repeat debridement and amputation of 5th toe and 5th metatarsal on 07/09/[address] Blankenship. Wound VAC applied on 2016. (2) Hypertensive urgency Is this a current diagnosis for this admission?: YesPlan: Ct with Amlodipine 10 mg daily po; Diovan 320 mg daily po; Metoprolol 25 mg BID PO; Clonidine 0.1mg q6h prn po; we will increase Hydralazine to 100 mg q8h PO to optimize BP control. Ct with 2 G sodium diet. (3) Diabetic ketoacidosis Qualifiers: Diabetes mellitus type: type 2 Diabetes mellitus complication detail: without coma Qualified Code(s): E13.10 - Other specified diabetes mellitus with ketoacidosis without coma Is this a current diagnosis for this admission?: YesPlan: Ct with IV fluid normal saline at 125 cc/hr; Slidding scale with humalog insulin [facility] protocol; Lantus insulin 40 iu qhs sucut; 1800 calorie ADA diet. (4) Rhabdomyolysis Qualifiers: Rhabdomyolysis type: non-traumatic Qualified Code(s): M62.82 - Rhabdomyolysis Is this a current diagnosis for this admission?: YesPlan: Ct with IV fluids normal saline at 125cc/hour; Monitor chemistries and CK daily ; Strict input/out put chart. (5) Acute on chronic diastolic congestive heart failure Is this a current diagnosis for this admission?: YesPlan: Ct with Lasix 40 mg q12h IV; Isosorbide mononitrate 30 mg daily po; KCL 10 MEQ daily po; daily wt; strict input/out put chart; monitor chemistries daily. (6) CHF exacerbation Qualifiers: Congestive heart failure type: unspecified congestive heart failure type Qualified Code(s): I50.9 - Heart failure, unspecified Is this a current diagnosis for this admission?: Yes (7) Atrial fibrillation Qualifiers: Atrial fibrillation type: paroxysmal Qualified Code(s): I48.0 - Paroxysmal atrial fibrillation Is this a current diagnosis for this admission?: YesPlan: Ct with Eliquis 5 mg BID po; Metoprolol 25 mg BID po. (8) COPD (chronic obstructive pulmonary disease) Qualifiers: COPD type: unspecified COPD Qualified Code(s): J44.9 - Chronic obstructive pulmonary disease, unspecified Is this a current diagnosis for this admission?: YesPlan: Ct with Duonebs q6h pr; Spiriva 18 mcg daily; Oxygen by N/C 2 L/min. (9) Hypertension Qualifiers: Hypertension type: essential hypertension Qualified Code(s): I10 - Essential (primary) hypertension Is this a current diagnosis for this admission?: Yes (10) Hyperlipidemia Qualifiers: Hyperlipidemia type: unspecified Qualified Code(s): E78.5 - Hyperlipidemia, unspecified Is this a current diagnosis for this admission?: YesPlan: Hold Atorvastatin due to rhabdomyolysis; ct with 200 mg cholesterol diet. (11) Chronic kidney disease (CKD) Is this a current diagnosis for this admission?: YesPlan: Avoid nephrotoxics; daily chemistries; daily wt; strict input/out put chart. (12) Obstructive sleep apnea Is this a current diagnosis for this admission?: YesPlan: Ct with CPAP at night. (13) Iron deficiency anemia Qualifiers: Iron deficiency anemia type: unspecified iron deficiency Qualified Code(s): D50.9 - Iron deficiency anemia, unspecified Is this a current diagnosis for this admission?: YesPlan: Ct with Ferrous sulfate 325 mg BID po; monitor CBC daily. (14) Vitamin D deficiency Is this a current diagnosis for this admission?: YesPlan: Ct with Vitamin D 13935mv weekly. (15) GERD (gastroesophageal reflux disease) Qualifiers: Esophagitis presence: without esophagitis Qualified Code(s): K21.9 - Gastro-esophageal reflux disease without esophagitis Is this a current diagnosis for this admission?: YesPlan: Ct with Prevacid 30 mg daily po. (16) Prostate cancer Is this a current diagnosis for this admission?: YesPlan: Ct with Alfuzosin 10 mg qd po. (17) Morbid obesity Qualifiers: Obesity type: unspecified obesity type Qualified Code(s): E66.01 - Morbid (severe) obesity due to excess calories Is this a current diagnosis for this admission?: YesPlan: Cty with diet/exercise counseling. (18) DVT prophylaxis Is this a current diagnosis for this admission?: YesPlan: Ct with Eliquis 5 mg BID po; SCD. - Time Time Spent with patient: 35 or more minutes Medications reviewed and adjusted accordingly: Yes Anticipated discharge: SNF Within: within 24 hours
[2016-07-22] MEDS: FUROSEMIDE INJ/PF 40 MG/4 ML SDV IV SCH (17:13)
[2016-07-22] MEDS: ERTAPENEM SODIUM 1 GM in NORMAL SALINE 50 ML IV SCH (19:09)
[2016-07-23] MEDS: HYDRALAZINE HCL 50 MG TABLET PO SCH ×3 (06:47→21:46)
[2016-07-23] MEDS: FUROSEMIDE INJ/PF 40 MG/4 ML SDV IV SCH (06:47)
[2016-07-23 07:17] LABS: ABSOLUTE MONOCYTES (AUTO) 0.5 10^3/uL (0.1-1.4); ABSOLUTE NEUT (AUTO) 2.9 10^3/uL (1.7-8.2); EOSINOPHILS % (AUTO) 0.9 % (0-6); HEMATOCRIT 27.5 % (37.9-51.0); HEMOGLOBIN 8.7 g/dL (13.5-17.0); HGB HCT DIFFERENCE -1.4; LYMPHOCYTES % (AUTO) 22.6 % (13-45); MEAN CORPUSCULAR HEMOGLOBIN 24.9 pg (27.0-33.4); MEAN CORPUSCULAR HGB CONC 31.7 g/dL (32.0-36.0); MEAN CORPUSCULAR VOLUME 79 fl (80-97); MONOCYTES % (AUTO) 10.5 % (3-13); RED CELL DISTRIBUTION WIDTH 17.5 % (11.5-14.0); WHITE BLOOD COUNT 4.5 10^3/uL (4.0-10.5)
[2016-07-23 07:31] LABS: ALANINE AMINOTRANSFERASE 50 U/L (21-72); ALBUMIN 2.9 g/dL (3.5-5.0); ALKALINE PHOSPHATASE 134 U/L (38-126); ANION GAP 11 (5-19); ASPARTATE AMINO TRANSFERASE 42 U/L (17-59); BILIRUBIN,TOTAL 0.7 mg/dL (0.2-1.3); BLOOD UREA NITROGEN 15 mg/dL (7-20); CARBON DIOXIDE 32 mmol/L (22-30); CHLORIDE 100 mmol/L (98-107); CREATININE RESULT 1.97 mg/dL (0.52-1.25); GLUCOSE 132 mg/dL (75-110); SODIUM 142.9 mmol/L (137-145); TOTAL PROTEIN 7.3 g/dL (6.3-8.2)
[2016-07-23] MEDS: GLIPIZIDE 10 MG TABLET PO SCH (08:37)
[2016-07-23] MEDS: FERROUS SULFATE 325 MG TABLET PO SCH ×2 (08:37→17:37)
[2016-07-23] MEDS: POTASSIUM CHLORIDE 10 MEQ TABLET.SA PO SCH (09:15)
[2016-07-23] MEDS: ASPIRIN 325 MG TABLET PO SCH (09:15)
[2016-07-23] MEDS: LANSOPRAZOLE 30 MG TAB.RAP.DR PO SCH (09:16)
[2016-07-23] MEDS: ISOSORBIDE MONONITRATE 30 MG TAB.ER.24H PO SCH (09:16)
[2016-07-23] MEDS: METOPROLOL TARTRATE 25 MG TABLET PO SCH ×2 (09:16→21:46)
[2016-07-23] MEDS: NORMAL SALINE 10 ML SDV (SCHEDULED) IV SCH ×2 (09:16→22:01)
[2016-07-23] MEDS: AMLODIPINE BESYLATE 10 MG TABLET PO SCH (09:16)
[2016-07-23] MEDS: APIXABAN 5 MG TABLET PO SCH ×2 (09:16→17:37)
[2016-07-23] MEDS: LINEZOLID 300 ML IV SCH ×2 (09:18→21:47)
[2016-07-23] MEDS: TIOTROPIUM BROMIDE DPI 5 CAP/KIT (18 MCG/CAP) IH SCH (09:18)
[2016-07-23] MEDS: INSULIN LISPRO 100 UNIT/ML 3 ML VIAL SUBCUT PRN (12:37)
[2016-07-23] MEDS ORDERED: POLYETHYLENE GLYCOL 3350 POWDER 17 GM/1 PACKET PO ONE (15:00)
[2016-07-23] MEDS: ERTAPENEM SODIUM 1 GM in NORMAL SALINE 50 ML IV SCH (17:37)
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
[2016-07-23] MEDS ORDERED: NA PHOS,M-B/NA PHOS,DI-BA (ADULT) 133 ML ENEMA PR ONE (19:30)
[2016-07-24] MEDS: HYDRALAZINE HCL 50 MG TABLET PO SCH (05:20)
[2016-07-24 06:35] LABS: ABSOLUTE LYMPHOCYTES (AUTO) 1.6 10^3/uL (0.5-4.7); ABSOLUTE MONOCYTES (AUTO) 0.5 10^3/uL (0.1-1.4); ABSOLUTE NEUT (AUTO) 3.1 10^3/uL (1.7-8.2); BASOPHILS % (AUTO) 0.6 % (0-2); EOSINOPHILS % (AUTO) 0.8 % (0-6); LYMPHOCYTES % (AUTO) 30.5 % (13-45); MEAN CORPUSCULAR HEMOGLOBIN 25.4 pg (27.0-33.4); MEAN CORPUSCULAR HGB CONC 32.2 g/dL (32.0-36.0); MEAN CORPUSCULAR VOLUME 79 fl (80-97); MONOCYTES % (AUTO) 10.2 % (3-13); RED BLOOD COUNT 3.56 10^6/uL (4.35-5.55); RED CELL DISTRIBUTION WIDTH 17.9 % (11.5-14.0); SEGMENTED NEUTROPHILS % (AUTO) 57.9 % (42-78); WHITE BLOOD COUNT 5.4 10^3/uL (4.0-10.5)
[2016-07-24 06:56] LABS: ALANINE AMINOTRANSFERASE 52 U/L (21-72); ALBUMIN 2.9 g/dL (3.5-5.0); ALKALINE PHOSPHATASE 137 U/L (38-126); ANION GAP 11 (5-19); ASPARTATE AMINO TRANSFERASE 45 U/L (17-59); BILIRUBIN,TOTAL 0.7 mg/dL (0.2-1.3); BLOOD UREA NITROGEN 16 mg/dL (7-20); CARBON DIOXIDE 32 mmol/L (22-30); CHLORIDE 99 mmol/L (98-107); CREATININE RESULT 1.81 mg/dL (0.52-1.25); GLUCOSE 150 mg/dL (75-110); POTASSIUM 3.9 mmol/L (3.6-5.0); SODIUM 142.4 mmol/L (137-145); TOTAL PROTEIN 7.3 g/dL (6.3-8.2)
[2016-07-24] MEDS: ASPIRIN 325 MG TABLET PO SCH (09:14)
[2016-07-24] MEDS: GLIPIZIDE 10 MG TABLET PO SCH (09:15)
[2016-07-24] MEDS: METOPROLOL TARTRATE 25 MG TABLET PO SCH (09:16)
[2016-07-24] MEDS: AMLODIPINE BESYLATE 10 MG TABLET PO SCH (09:16)
[2016-07-24] MEDS: APIXABAN 5 MG TABLET PO SCH (09:16)
[2016-07-24] MEDS: FERROUS SULFATE 325 MG TABLET PO SCH (09:16)
[2016-07-24] MEDS: POTASSIUM CHLORIDE 10 MEQ TABLET.SA PO SCH (09:16)
[2016-07-24] MEDS: ISOSORBIDE MONONITRATE 30 MG TAB.ER.24H PO SCH (09:16)
[2016-07-24] MEDS: LANSOPRAZOLE 30 MG TAB.RAP.DR PO SCH (09:16)
[2016-07-24] MEDS: NORMAL SALINE 10 ML SDV (SCHEDULED) IV SCH (09:17)
[2016-07-24] MEDS: INSULIN LISPRO 100 UNIT/ML 3 ML VIAL SUBCUT PRN (09:17)
[2016-07-24] MEDS ORDERED: POLYETHYLENE GLYCOL 3350 POWDER 17 GM/1 PACKET PO SCH (10:00)
[2016-07-24] MEDS ORDERED: FUROSEMIDE 40 MG TABLET PO SCH (10:00)
--- NOTE | 2016-07-24 10:10 | PDOC DISCHARGE SUMMARY ---
General - Admit/Disc Date/PCP Admission Date/Primary Care Provider: 07/04/16 05:33 SUDEEP CHEUNG 81 yr old man who was admitted for right foot acute osteomyelitis s.p amputation of 5th metatarsal/debridementx2/Rhabdomyolysis- resolved/DKA- resolved/Acute on chronic CHF decompensation- diastolic dysfunction/HTN urgency. He had wound cultures and blood cultures that confirmed mutiple organisms including MRSA that are multi resistant. He was initially on Vancomycin and Zosyn and was later switched to Ertapenem and Linezolid. He also had PICC line and wound VAC in situ. He was been accepted at [facility] for REHAB and to continue with IV Ertapenem for 2 more weeks together with Bactrim DS for 2 weeks and wound care- instructions to be given by surgeons.He will continue with Wound VAC and will need to follow up with [facility] wound for wound care. Both patient and his nephew, Mr Linder are in agreement with this plan of care. Discharge Date: 07/24/16 - Discharge Diagnosis (1) Osteomyelitis of right foot Is this a current diagnosis for this admission?: Yes (2) Hypertensive urgency Is this a current diagnosis for this admission?: Yes (3) Diabetic ketoacidosis Is this a current diagnosis for this admission?: Yes (4) Rhabdomyolysis Is this a current diagnosis for this admission?: Yes (5) Acute on chronic diastolic congestive heart failure Is this a current diagnosis for this admission?: Yes (6) CHF exacerbation Is this a current diagnosis for this admission?: Yes (7) Atrial fibrillation Is this a current diagnosis for this admission?: Yes (8) COPD (chronic obstructive pulmonary disease) Is this a current diagnosis for this admission?: Yes (9) Hypertension Is this a current diagnosis for this admission?: Yes (10) Hyperlipidemia Is this a current diagnosis for this admission?: Yes (11) Chronic kidney disease (CKD) Is this a current diagnosis for this admission?: Yes (12) Obstructive sleep apnea Is this a current diagnosis for this admission?: Yes (13) Iron deficiency anemia Is this a current diagnosis for this admission?: Yes (14) Vitamin D deficiency Is this a current diagnosis for this admission?: Yes (15) GERD (gastroesophageal reflux disease) Is this a current diagnosis for this admission?: Yes (16) Prostate cancer Is this a current diagnosis for this admission?: Yes (17) Morbid obesity Is this a current diagnosis for this admission?: Yes (18) DVT prophylaxis Is this a current diagnosis for this admission?: Yes (19) Constipation Is this a current diagnosis for this admission?: Yes - Additional Information Resuscitation Status: Full Code Discharge Activity: Activity As Tolerated, Balance Activity w/Rest, Weigh Daily Home Medications: Amlodipine Besylate [Norvasc 10 mg Tablet] 10 mg PO DAILY 07/03/16 Apixaban [Eliquis 5 mg Tablet] 5 mg PO Q12 07/03/16 Aspirin [Ecotrin] 325 mg PO DAILY 07/03/16 B Complex & C No.20/Folic Acid [Renal Caps Softgel] 1 cap PO DAILY 07/03/16 Ergocalciferol (Vitamin D2) [Vitamin D2] 50,000 units PO ABDALLA 07/03/16 Ferrous Sulfate [Feosol 325 mg Tablet] 325 mg PO BID 07/03/16 Glipizide [Glucotrol 10 mg Tablet] 10 mg PO DAILY 07/03/16 Isosorbide Mononitrate [Imdur 30 mg Tablet.er] 30 mg PO DAILY 07/03/16 Metoprolol Tartrate [Lopressor 25 mg Tablet] 25 mg PO DAILY 07/03/16 Pantoprazole Sodium [Protonix] 40 mg PO DAILY 07/03/16 Potassium Chloride [Klor-Con 10] 10 meq PO DAILY 07/03/16 Tiotropium [place] [Spiriva Handihaler 18 mcg/dose (30 Dose)] 1 cap IH DAILY 05/09 Ertapenem Sodium [Invanz Inj 1 gm Vial] 1 gm IV QPM #0 vial 07/24/16 Furosemide [Lasix 40 mg Tablet] 40 mg PO DAILY #0 tablet 07/24/16 Hydralazine HCl [Apresoline 50 mg Tablet] 100 mg PO Q8 #0 tablet 07/24/16 Insulin Glargine,Hum.rec.anlog [Lantus] 30 units SQ QHS #0 07/24/16 Insulin Lispro [Humalog Insulin (Lispro) 100 unit/mL] 0 - 12 unit SUBCUT ACHSP PRN #0 unit 07/24/16 Ipratropium/Albuterol Sulfate [Duoneb 3 ml Ampul] 3 ml NEB [id number] PRN #0 vial.neb 07/24/16 Polyethylene Glycol 3350 [Miralax Powder 17 gm/Packet] 17 gm PO DAILY #0 powd.pack 07/24/16 Sulfamethoxazole/Trimethoprim [Bactrim Ds Tablet] 1 each PO BID #28 tablet 07/24 Hospital Course Hospital Course: 81 yr old man who was admitted for right foot acute osteomyelitis s.p amputation of 5th metatarsal/debridementx2/Rhabdomyolysis- resolved/DKA- resolved/Acute on chronic CHF decompensation- diastolic dysfunction/HTN urgency. He had wound cultures and blood cultures that confirmed mutiple organisms including MRSA that are multi resistant. He was initially on Vancomycin and Zosyn and was later switched to Ertapenem and Linezolid. He also had PICC line and wound VAC in situ. He was been accepted at [facility] for REHAB and to continue with IV Ertapenem for 2 more weeks together with Bactrim DS for 2 weeks and wound care- instructions to be given by surgeons.He will continue with Wound VAC and will need to follow up with [facility] wound for wound care. Both patient and his nephew, Mr Linder are in agreement with this plan of care. Physical Exam Vital Signs: Temp Pulse Resp BP Pulse Ox 98.2 F 58 L 20 174/59 H 98 07/24/16 07:20 07/24/16 07:20 07/24/16 07:20 07/24/16 07:20 07/24/16 07:20 Intake & Output 07/23/16 07/24/16 07/25/16 06:59 06:59 06:59 Intake Total 1314 1942 Output Total 675 1120 Balance 639 822 Weight 129.3 kg 127 kg General appearance: PRESENT: morbidly obese, well-developed, well-nourished Head exam: PRESENT: atraumatic, normocephalic Eye exam: PRESENT: EOMI, PERRLA Ear exam: PRESENT: normal external ear exam Mouth exam: PRESENT: moist, neck supple, tongue midline Respiratory exam: PRESENT: decreased breath sounds Cardiovascular exam: PRESENT: irregular rhythm, +S1, +S2 Additional comments: Wound VAC in situ on right foot Neurological exam: PRESENT: alert, awake, oriented to person, oriented to place , oriented to time, CN II-XII grossly intact Psychiatric exam: PRESENT: normal mood Results Laboratory Results: 07/24/16 05:33 07/24/16 05:33 07/24/16 07/24/16 05:33 05:33 WBC 5.4 RBC 3.56 L Hgb 9.0 L Hct 28.0 L MCV 79 L MCH 25.4 L MCHC 32.2 RDW 17.9 H Plt Count 236 Seg Neutrophils % 57.9 Lymphocytes % 30.5 Monocytes % 10.2 Eosinophils % 0.8 Basophils % 0.6 Absolute Neutrophils 3.1 Absolute Lymphocytes 1.6 Absolute Monocytes 0.5 Absolute Eosinophils 0.0 Absolute Basophils 0.0 Sodium 142.4 Potassium 3.9 Chloride 99 Carbon Dioxide 32 H Anion Gap 11 BUN 16 Creatinine 1.81 H Est GFR ( Amer) 44 L Est GFR (Non-Af Amer) 36 L Glucose 150 H Calcium 9.0 Total Bilirubin 0.7 AST 45 ALT 52 Alkaline Phosphatase 137 H Total Protein 7.3 Albumin 2.9 L 07/04/16 07/04/16 07/06/16 07:46 07:46 06:05 Creatine Kinase 2326 H 691 H NT-Pro-B Natriuret Pep 43097 H 07/07/16 07/08/16 07/19/16 05:43 05:43 05:47 Creatine Kinase 502 H 355 H NT-Pro-B Natriuret Pep 37093 H Impressions: Foot X-Ray 07/03/16 16:14 IMPRESSION: EROSIVE CHANGES INVOLVING THE HEAD OF THE 5TH METATARSAL AND BASE OF THE PROXIMAL PHALANX OF THE 5TH TOE. FINDINGS ARE SUSPICIOUS FOR OSTEOMYELITIS, PROBABLY CHRONIC. GENERAL SOFT TISSUE SWELLING. NO ACUTE FINDINGS. Lower Extremity MRI 07/04/16 09:00 IMPRESSION: 5th metatarsal and 5th proximal phalanx osteomyelitis Extensive deep tissue cellulitis right foot without gross evidence of abscess Guidance Fluoroscopy 07/19/16 00:00 IMPRESSION: SUCCESSFUL PLACEMENT OF A 5 FR DUAL LUMEN 40 CM PICC IN THE left basilic VEIN. Interventional Vascular Procedure 07/19/16 00:00 IMPRESSION: SUCCESSFUL PLACEMENT OF A 5 FR DUAL LUMEN 40 CM PICC IN THE left basilic VEIN. PICC Line Insertion 07/19/16 00:00 IMPRESSION: SUCCESSFUL PLACEMENT OF A 5 FR DUAL LUMEN 40 CM PICC IN THE left basilic VEIN. Chest X-Ray 07/20/16 06:00 IMPRESSION: Fluid overload or congestive failure with bilateral alveolar and interstitial edema, increased compared to 07/19/2016.
[2016-07-24] MEDS: LINEZOLID 300 ML IV SCH (10:58)
[2016-07-24 11:48] VITALS: BP 147/53
[2016-07-24] MEDS: TIOTROPIUM BROMIDE DPI 5 CAP/KIT (18 MCG/CAP) IH SCH (13:32)
== END 2016-07-24 14:02 | DRG 616 ==
LOC: ER 15:00 → UNDOADMIN 18:19 → EH 18:19 → 3S 07-04 05:10 → EH 07-04 05:10 → 3S 07-04 05:33
PROVIDERS: ADMIT Internal Medicine; ATTEND Internal Medicine
PROC: 0Y6X0Z0 Detachment at Right 5th Toe, Complete, Open Approach (ICD-10-PCS; principal; 2016-07-04)
PROC: 0LBN0ZZ Excision of Right Lower Leg Tendon, Open Approach (ICD-10-PCS; 2016-07-04)
PROC: 0LBN0ZZ Excision of Right Lower Leg Tendon, Open Approach (ICD-10-PCS; 2016-07-04)
PROC: 3E0F73Z Introduction of Anti-inflammatory into Respiratory Tract, Via Natural or Artificial Opening (ICD-10-PCS; 2016-07-04)
PROC: 3E0F73Z Introduction of Anti-inflammatory into Respiratory Tract, Via Natural or Artificial Opening (ICD-10-PCS; 2016-07-04)
PROC: 0JBQ0ZZ Excision of Right Foot Subcutaneous Tissue and Fascia, Open Approach (ICD-10-PCS; 2016-07-15)
PROC: 02HV33Z Insertion of Infusion Device into Superior Vena Cava, Percutaneous Approach (ICD-10-PCS; 2016-07-19)
PROC: B518ZZA Fluoroscopy of Superior Vena Cava, Guidance (ICD-10-PCS; 2016-07-19)
DX: E11.621 Type 2 diabetes mellitus with foot ulcer (principal); I50.33 Acute on chronic diastolic (congestive) heart failure; J96.01 Acute respiratory failure with hypoxia; I13.0 Hypertensive heart and chronic kidney disease with heart failure and stage 1 through stage 4 chronic kidney disease, or unspecified chronic kidney disease; M86.171 Other acute osteomyelitis, right ankle and foot; M62.82 Rhabdomyolysis; M86.671 Other chronic osteomyelitis, right ankle and foot; L03.115 Cellulitis of right lower limb; I48.92 Unspecified atrial flutter; E13.10 Other specified diabetes mellitus with ketoacidosis without coma; I16.0 Hypertensive urgency; E11.69 Type 2 diabetes mellitus with other specified complication; Z22.322 Carrier or suspected carrier of Methicillin resistant Staphylococcus aureus; I48.0 Paroxysmal atrial fibrillation; J44.9 Chronic obstructive pulmonary disease, unspecified; E78.5 Hyperlipidemia, unspecified; N18.9 Chronic kidney disease, unspecified; G47.33 Obstructive sleep apnea (adult) (pediatric); D50.9 Iron deficiency anemia, unspecified; E55.9 Vitamin D deficiency, unspecified; K21.9 Gastro-esophageal reflux disease without esophagitis; C61 Malignant neoplasm of prostate; E66.01 Morbid (severe) obesity due to excess calories; Z68.39 Body mass index [BMI] 39.0-39.9, adult; K59.00 Constipation, unspecified; E78.00 Pure hypercholesterolemia, unspecified; F32.9 Major depressive disorder, single episode, unspecified; E11.42 Type 2 diabetes mellitus with diabetic polyneuropathy; I89.0 Lymphedema, not elsewhere classified; D63.1 Anemia in chronic kidney disease; M10.9 Gout, unspecified; E87.6 Hypokalemia; B96.4 Proteus (mirabilis) (morganii) as the cause of diseases classified elsewhere; B95.62 Methicillin resistant Staphylococcus aureus infection as the cause of diseases classified elsewhere; B95.2 Enterococcus as the cause of diseases classified elsewhere; Z60.2 Problems related to living alone; Z91.11 Patient's noncompliance with dietary regimen; Z91.14 Patient's other noncompliance with medication regimen; Z91.19 Patient's noncompliance with other medical treatment and regimen; Z87.891 Personal history of nicotine dependence; Z79.899 Other long term (current) drug therapy; Z83.3 Family history of diabetes mellitus; Z82.3 Family history of stroke; Z82.49 Family history of ischemic heart disease and other diseases of the circulatory system
CPT/HCPCS: 01480; 36415; 36569; 71010; 71020; 76937; 77001; 80048; 80053; 80061; 80069; 80202; 81001; 82550; 82553; 82565; 82607; 82728; 82746; 82962; 83036; 83540; 83550; 83735; 83880; 84443; 84466; 84484; 85025; 85027; 85045; 85610; 85730; 87040; 87070; 87075; 87077; 87186; 87205; 88305; 93005; 93010; 93306; 93926; 99285; G8978-GP; G8979-GP; G8987-GO; G8988-GO; J1335; J1642; J1815; J1940; J2020; J2543; J2704; J3370; J3490; J7030; J7060

== ENCOUNTER → 2016-08-02 | Day surgery (SDC) | payer MEDICARE, OTHER | LOC: RAD 13:05 | PROVIDERS: ATTEND Internal Medicine | PROC: 05HC33Z Insertion of Infusion Device into Left Basilic Vein, Percutaneous Approach (ICD-10-PCS; principal; 2016-08-02) | DX: A49.02 Methicillin resistant Staphylococcus aureus infection, unspecified site (principal) | CPT/HCPCS: 36569; 77001; 76937; J1642 ==

== ENCOUNTER 2016-08-04 16:04 | Inpatient (IN) | payer MEDICARE, OTHER ==
--- NOTE | 2016-08-04 19:31 | ER Document Report ---
ED General - General Chief Complaint: Other Stated Complaint: PICC LINE REPLACEMENT Time seen by provider: 19:31 Mode of Arrival: Medic Information source: Patient TRAVEL OUTSIDE OF THE [place] IN LAST 30 DAYS: No - HPI Patient complains to provider of: PICC line accidentally removed Onset: Just prior to arrival Onset/Duration: Sudden Quality of pain: No pain Associated symptoms: None Exacerbated by: Denies Relieved by: Denies Similar symptoms previously: No Recently seen / treated by doctor: Yes Notes: Patient is a 81-year-old male sent from [facility] because his PICC line accidentally was removed this evening, patient has a PICC line in place for delivery of IV antibiotics related to osteomyelitis, he denies any complaints at time of evaluation - Related Data Allergies/Adverse Reactions: PPD black rubber mix Allergy (Verified 08/05/16 00:06) Home Medications: Current Home Medications Insulin Lispro [Humalog] See Protocol SQ ACHS PRN 08/05/16 [History] Past Medical History - General Information source: Patient, Outside Facility Records - Social History Smoking Status: Unknown if Ever Smoked Family History: CAD, CVA, DM - Past Medical History Cardiac Medical History: Reports: Hx Atrial Fibrillation, Hx Congestive Heart Failure, Hx Hypercholesterolemia, Hx Hypertension Pulmonary Medical History: Reports: Hx COPD Endocrine Medical History: Reports: Hx Diabetes Mellitus Type 2 - SINCE 1985 Malignancy Medical History: Reports Hx Prostate Cancer Psychiatric Medical History: Reports: Hx Depression Past Surgical History: Reports: Hx 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 Denies: Hx Adenoidectomy - Immunizations Hx Diphtheria, Pertussis, Tetanus Vaccination: Yes Hx Pneumococcal Vaccination: 03/23/15 Review of Systems - Review of Systems Constitutional: No symptoms reported EENT: No symptoms reported Cardiovascular: No symptoms reported Respiratory: No symptoms reported Gastrointestinal: No symptoms reported Genitourinary: No symptoms reported Male Genitourinary: No symptoms reported Musculoskeletal: No symptoms reported Skin: No symptoms reported Hematologic/Lymphatic: No symptoms reported Neurological/Psychological: No symptoms reported -: Yes All other systems reviewed and negative Physical Exam - Vital signs Vitals: Temp Pulse Resp BP Pulse Ox 98.4 F 65 18 124/83 97 08/04/16 16:51 08/04/16 16:51 08/04/16 16:51 08/04/16 16:51 08/04/16 16:51 Interpretation: Normal - General General appearance: Appears well, Alert - HEENT Head: Normocephalic, Atraumatic Eyes: Normal Pupils: PERRL - Respiratory Respiratory status: No respiratory distress Chest status: Nontender Breath sounds: Normal Chest palpation: Normal - Cardiovascular Rhythm: Regular Heart sounds: Normal auscultation Murmur: No - Abdominal Inspection: Normal Distension: No distension Bowel sounds: Normal Tenderness: Nontender Organomegaly: No organomegaly - Back Back: Normal, Nontender - Extremities General upper extremity: Nontender, Normal color, Normal ROM, Normal temperature , Other - Small amount of blood coming from left upper arm where PICC line was previously placed General lower extremity: No: Kojo's sign - Neurological Neuro grossly intact: Yes Cognition: Normal Orientation: AAOx4 Bren Coma Scale Eye Opening: Spontaneous Bren Coma Scale Verbal: Oriented [place] Coma Scale Motor: Obeys Commands [place] Coma Scale Total: 15 Speech: Normal Motor strength normal: LUE, RUE, LLE, RLE Sensory: Normal - Psychological Associated symptoms: Normal affect, Normal mood - Skin Skin Temperature: Warm Skin Moisture: Dry Skin Color: Normal Course - Re-evaluation Re-evalutation: 08/04/16 19:35 [employer] Painter to hernando Mercedes 08/04/16 19:57 Spoke with Julia in the radiology department who spoke with , who states patient simply needs an order to have an elevation PICC line placed, he can be given information to call and schedule as an outpatient which can be passed on to the [facility] so that they can call tomorrow and schedule him for this procedure, they request that basic labs to rule out renal disease and coagulation studies be ordered this evening 08/05/16 03:49 Patient's lab consistent with anemia, with a hemoglobin is 7.1, potassium is increased with worsening kidney function than previous studies, patient was discussed with the hospitalist who agrees to admit for further evaluation and treatment - Vital Signs Vital signs: Temp Pulse Resp BP Pulse Ox 97.9 F 79 26 H 126/55 H 90 L 08/05/16 02:51 08/05/16 02:51 08/05/16 02:51 08/05/16 02:51 08/05/16 02:51 - Laboratory Result Diagrams: 08/04/16 20:01 08/05/16 02:57 Laboratory results interpreted by me: 08/04/16 08/04/16 08/04/16 20:01 20:01 20:01 RBC 2.77 L Hgb 7.1 L Hct 22.2 L MCH 25.6 L MCHC 31.8 L RDW 20.7 H PT 17.5 H APTT 48.9 H Potassium 5.7 H BUN 45 H Creatinine 3.71 H Est GFR ( Amer) 19 L Est GFR (Non-Af Amer) 16 L Glucose 197 H POC Glucose Crossmatch 08/04/16 08/04/16 22:18 22:54 RBC Hgb Hct MCH MCHC RDW PT APTT Potassium BUN Creatinine Est GFR ( Amer) Est GFR (Non-Af Amer) Glucose POC Glucose 233 H Crossmatch See Detail - Diagnostic Test Radiology reviewed: Image reviewed, Reports reviewed Discharge - Discharge Clinical Impression: Anemia of chronic disease, Acute on chronic renal failure, Hyperkalemia Condition: Fair Disposition: ADMITTED INPATIENT Admitting Provider: Hospitalist Unit Admitted: Telemetry
[2016-08-04 20:40] LABS: PROTHROMBIN TIME 17.5 SEC (11.4-15.4)
[2016-08-04 20:41] LABS: PARTIAL THROMBOPLASTIN TIME 48.9 SEC (23.5-35.8)
[2016-08-04] MEDS ORDERED: ERTAPENEM SODIUM INJ 1 GM VIAL IV ONE (20:42)
[2016-08-04 20:47] LABS: ABSOLUTE LYMPHOCYTES (AUTO) 1.1 10^3/uL (0.5-4.7); ABSOLUTE MONOCYTES (AUTO) 0.6 10^3/uL (0.1-1.4); ABSOLUTE NEUT (AUTO) 4.4 10^3/uL (1.7-8.2); BASOPHILS % (AUTO) 0.5 % (0-2); EOSINOPHILS % (AUTO) 0.8 % (0-6); HEMATOCRIT 22.2 % (37.9-51.0); HGB HCT DIFFERENCE -0.9; LYMPHOCYTES % (AUTO) 17.6 % (13-45); MEAN CORPUSCULAR HEMOGLOBIN 25.6 pg (27.0-33.4); MEAN CORPUSCULAR HGB CONC 31.8 g/dL (32.0-36.0); MEAN CORPUSCULAR VOLUME 80 fl (80-97); MONOCYTES % (AUTO) 9.5 % (3-13); RED BLOOD COUNT 2.77 10^6/uL (4.35-5.55); RED CELL DISTRIBUTION WIDTH 20.7 % (11.5-14.0); SEGMENTED NEUTROPHILS % (AUTO) 71.6 % (42-78); WHITE BLOOD COUNT 6.1 10^3/uL (4.0-10.5)
[2016-08-04 20:51] LABS: ANION GAP 9 (5-19); BLOOD UREA NITROGEN 45 mg/dL (7-20); CALCIUM 8.5 mg/dL (8.4-10.2); CARBON DIOXIDE 29 mmol/L (22-30); CHLORIDE 99 mmol/L (98-107); CREATININE RESULT 3.71 mg/dL (0.52-1.25); GLUCOSE 197 mg/dL (75-110); POTASSIUM 5.7 mmol/L (3.6-5.0); SODIUM 137.4 mmol/L (137-145)
[2016-08-04 20:59] LABS: HEMOGLOBIN 7.1 g/dL (13.5-17.0)
--- NOTE | 2016-08-04 21:39 | EKG REPORT ---
SEVERITY:- ABNORMAL ECG - A-FLUTTER W/ PREDOM 3:1 AV BLOCK, A-RATE 220 NONSPECIFIC T ABNORMALITIES, LATERAL LEADS : Confirmed by: Suhail Kaufman MD 04-Aug-2016 21:38:49
[2016-08-04] MEDS ORDERED: NORMAL SALINE 250 ML IV PRN (21:41)
[2016-08-04] MEDS ORDERED: CALCIUM GLUCONATE 1000 MG/10 ML INJ IV ONE (22:23)
[2016-08-04] MEDS ORDERED: DEXTROSE 50%-WATER 25 GM/50 ML DISP.SYRIN IV ONE (22:23)
[2016-08-04] MEDS ORDERED: SODIUM POLYSTYRENE SULFONATE 15 GM/60 ML PO ONE (22:23)
[2016-08-04] MEDS ORDERED: INSULIN REG, HUMAN 100 UNIT/ML 3 ML VIAL (PYX) IV ONE (22:23)
[2016-08-04] MEDS ORDERED: DEXTROSE 50%-WATER 25 GM/50 ML DISP.SYRIN IV PRN ×2 (23:28)
[2016-08-04] MEDS ORDERED: GLUCAGON,HUMAN RECOMB 1 MG INJ IM PRN (23:28)
[2016-08-04] MEDS ORDERED: DEXTROSE 40% GEL 15 GM TUBE PO PRN ×2 (23:28)
[2016-08-04] MEDS ORDERED: GENTAMICIN SULFATE 0 MG in DEXTROSE 5%-WATER 100 ML IV NR (23:45)
[2016-08-04] MEDS ORDERED: ACETAMINOPHEN 325 MG TABLET PO PRN (23:47)
--- NOTE | 2016-08-05 00:24 | PDOC H&P ---
History of Present Illness Admission Date/PCP: 08/04/16 22:18 SUDEEP [place] Patient complains of: PICC line out History of Present Illness: CHARLA WEBB JR is a 81 year old morbidly obese -Hungarian male, with multiple chronic comorbidities, including type I diabetes mellitus, stage III chronic kidney disease, atrial fibrillation, on Eliquis for same, currently undergoing 2-week regimen of ertapenem for osteomyelitis of the right foot, transferred from [facility] after his PICC line came out. Basic labs were drawn, revealing multiple abnormalities. Otherwise, patient has no specific complaint, including nausea vomiting, fever or chills, diarrhea or dysuria, chest or abdominal pain. Patient has been discussed with emergency room physician who evaluated the patient. . Hospitalized on the service of his primary care provider July 04 through 06/2016 with discharge diagnoses including osteomyelitis of the right foot, rhabdomyolysis, diabetic ketoacidosis, hypertensive urgency, and acute on chronic diastolic congestive heart failure. Underwent a number of procedures during that hospital stay, including amputation of the right fifth metatarsal. Several week regimen of intravenous antibiotics, including an additional 2 weeks of ertapenem at discharge. Bactrim double strength was also ordered. Copies of the history and physical and discharge summary have been reviewed. Laboratory results are listed in [facility] and are reviewed. X-ray summary results are listed below, with full report(s) reviewed. . EKG reviewed. And compared to tracing from 07/03/2016. Social history/personal habits: . Retired. No children. Prior to the above hospital stay, lived alone; discharged for the above antibiotic regimen and rehabilitation. No tobacco or alcohol use for many years. No illicit drug use. Allergies/adverse reactions are listed in [facility] and are reviewed. Home medications are reviewed from a copy of the medication administration record from [facility] [place] and are to be reconciled by nursing staff in [facility]. Home medications initially autopopulated into [facility] may not accurately reflect patient's true medications, dosages, and/or frequencies. REVIEW OF SYSTEMS: Constitutional: No fever or chills. Eyes: Wears glasses. ENT: No swallowing problems or complaints. No hearing problems or complaints. Pulmonary: No current complaints. Cardiovascular: No current complaints, including chest pain. Gastrointestinal: No current complaints, including nausea or vomiting. Skin: No current complaints, including rashes. Hematologic: Easy bruising. Neurologic: No current complaints, including numbness or tingling. Musculoskeletal: No current complaints, including painful joints. Psychiatric: Mild depression; denies suicidal or homicidal ideation. Endocrine: No current complaints, including polyuria. Genitourinary: No current complaints, including dysuria. PHYSICAL EXAMINATION: Neither height nor weight are recorded on the chart. Temperature 98.4. Blood pressure 154/68. Pulse 75 and regular. 94% saturation on 4 L oxygen per nasal cannula. Respirations are 24 and unlabored. Morbidly obese otherwise well-developed -Hungarian male who appears a number of years younger than his stated age. Sitting up in bed, Pleasant awake alert and cooperative. No obvious distress other than mildly anxious. Emergency room nurse Jackelin is present. Skin is warm and dry. No grossly obvious evidence of rash in areas of skin examined. No subcutaneous nodules palpated. ENT: Hearing grossly normal to normal conversation. Tongue midline on protrusion pink and slightly moist. Eyes: No scleral icterus. Pupils equal and reactive to light at 4 mm. [place] conjunctivae. Neck is supple and nontender to gentle active range of motion and palpation. Midline trachea. No palpable thyroid nodule mass enlargement or tenderness. Lymphatic: No palpable cervical or clavicular nodes. Neck and lymphatic exams limited by patient body habitus. Psychiatric: Reasonable insight into acute and chronic medical issues. Oriented to time location and why here. Lungs: Auscultation reveals clear and equal breath sounds bilaterally. No use of accessory respiratory muscles. Cardiovascular: Heart regular rate and rhythm, without gallop murmur or rub. No carotid or abdominal aortic bruits. Bilateral mild to moderate slightly pitting ankle and pedal edema. Not able to detect left posterior tibial or dorsalis pedis pulses due to edema; similar limitation in terms of the right posterior tibial pulse.. Right foot exam slightly limited by dressing in place , circumferentially covering mid- and distal aspect of foot. This is clean dry and intact and is left in place. Right toes are warm and dry with quite acceptable capillary refill. Abdomen: soft, obese, nontender with positive bowel sounds. Unable to adequately evaluate abdomen for masses or organomegaly due to body habitus. Extremities: Feet are warm and dry. No calf tenderness to compression. No grossly obvious visual evidence of calf swelling. Gentle manipulation of lower extremities fails to reveal any obvious evidence of injury or instability to ankles. 2 clean dry and intact opaque adherent dressings on his anterior medial left lower leg, as result of patient scratching himself. Nontender to compression of the area. Dressings are left in place. Neurologic: Moves upper extremities grossly normally. Patellar reflexes absent. Absent left Babinski; can't adequately check on right due to dressing on right foot.. Light touch is intact at feet. Dorsiflexion and plantarflexion of feet 5 / 5 and symmetric. Past Medical History Cardiac Medical History: Reports: Atrial Fibrillation, Congestive Heart Failure - Diastolic, Hyperlipidema, Hypertension Denies: DVT, Myocardial Infarction, Pulmonary Embolism Pulmonary Medical History: Reports: Chronic Obstructive Pulmonary Disease (COPD) , Sleep Apnea EENT Medical History: Reports: Eyes - Reading glasses Denies: Ears, Throat Neurological Medical History: Denies: Hemorrhagic CVA, Ischemic CVA, Seizures Endocrine Medical History: Reports: Diabetes Mellitus Type 1, Diabetes Mellitus Type 2 Denies: Hyperthyroidism, Hypothyroidism Renal/ Medical History: Reports: Chronic Kidney Disease GI Medical History: Denies: Gastroesophageal Reflux Disease, Peptic Ulcer Disease Musculoskeltal Medical History: Denies: Arthritis Skin Medical History: Reports: None Psychiatric Medical History: Reports: Depression Denies: Alcohol Dependency, Substance Abuse, Tobacco Dependency Hematology: Reports: Anemia Infectious Medical History: Reports: Methicillin-Resistant Staph Aureus Past Surgical History Past Surgical History: Reports: Orthopedic Surgery - Right fifth metatarsal amputation, Other - Nasal surgery many years ago while in the [facility]). Social History Information Source: Patient, Emergency Med Personnel, [facility] Records Lives with: [facility] Smoking Status: Former Smoker Frequency of Alcohol Use: None Hx Recreational Drug Use: No Drugs: None Hx Prescription Drug Abuse: No - Advance Directive Resuscitation Status: Full Code Surrogate healthcare decision maker:: Nephew Enoch Angulo Family History Family History: CAD, CVA, DM Parental Family History Reviewed: Yes Children Family History Reviewed: NA Sibling(s) Family History Reviewed.: Yes Medication/Allergy Home Medications: RX: Amlodipine Besylate [Norvasc 10 mg Tablet] 10 mg PO DAILY 07/03/16 RX: Apixaban [Eliquis 5 mg Tablet] 5 mg PO Q12 07/03/16 RX: Aspirin [Ecotrin] 325 mg PO DAILY 07/03/16 RX: B Complex & C No.20/Folic Acid [Renal Caps Softgel] 1 cap PO DAILY 07/03/16 RX: Ergocalciferol (Vitamin D2) [Vitamin D2] 50,000 units PO ABDALLA 07/03/16 RX: Ferrous Sulfate [Feosol 325 mg Tablet] 325 mg PO BID 07/03/16 RX: Glipizide [Glucotrol 10 mg Tablet] 10 mg PO DAILY 07/03/16 RX: Isosorbide Mononitrate [Imdur 30 mg Tablet.er] 30 mg PO DAILY 07/03/16 RX: Metoprolol Tartrate [Lopressor 25 mg Tablet] 25 mg PO DAILY 07/03/16 RX: Pantoprazole Sodium [Protonix] 40 mg PO DAILY 07/03/16 RX: Potassium Chloride [Klor-Con 10] 10 meq PO DAILY 07/03/16 RX: Tiotropium [place] [Spiriva Handihaler 18 mcg/dose (30 Dose)] 1 cap IH DAILY 07/03/16 RX: Ertapenem Sodium [Invanz Inj 1 gm Vial] 1 gm IV QPM #0 vial 07/24/16 RX: Furosemide [Lasix 40 mg Tablet] 40 mg PO DAILY #0 tablet 07/24/16 RX: Hydralazine HCl [Apresoline 50 mg Tablet] 100 mg PO Q8 #0 tablet 07/24/16 RX: Insulin Glargine,Hum.rec.anlog [Lantus] 30 units SQ QHS #0 07/24/16 RX: Ipratropium/Albuterol Sulfate [Duoneb 3 ml Ampul] 3 ml [facility] [id number] PRN #0 vial.neb 07/24/16 RX: Polyethylene Glycol 3350 [Miralax Powder 17 gm/Packet] 17 gm PO DAILY #0 powd.pack 07/24/16 Sulfamethoxazole/Trimethoprim [Bactrim Ds Tablet] 1 each PO BID #28 tablet 07/24 Insulin Lispro [Humalog] See Protocol SQ ACHS PRN 08/05/16 Allergies/Adverse Reactions: PPD black rubber mix Allergy (Verified 08/05/16 00:06) Physical Exam Vital Signs: Temp Pulse Resp BP Pulse Ox 98.4 F 65 22 H 154/68 H 92 08/04/16 16:51 08/04/16 16:51 08/04/16 22:18 08/04/16 22:02 08/04/16 22:17 Results Impressions: Chest X-Ray 08/04/16 00:00 IMPRESSION: PULMONARY EDEMA. SLIGHT IMPROVEMENT SINCE THE PRIOR STUDY. NO RADIOPAQUE FOREIGN BODY. Humerus X-Ray 08/04/16 00:00 IMPRESSION: NO SIGNIFICANT RADIOGRAPHIC ABNORMALITY. NO RADIOPAQUE FOREIGN BODY. Assessment & Plan - Diagnosis (1) Diastolic CHF Qualifiers: Congestive heart failure chronicity: chronic Qualified Code(s): I50.32 - Chronic diastolic (congestive) heart failure Is this a current diagnosis for this admission?: YesPlan: Clinically stable at present.Resume home medications as appropriate once these have been reviewed. (2) Acute worsening of stage 3 chronic kidney disease Is this a current diagnosis for this admission?: YesPlan: Renal ultrasound. Nephrology consult. Serial chemistry. Consider judicious use of IV fluid, with patient's underlying congestive heart failure, with acute on chronic episode during above recent hospital stay. I have strongly encouraged patient not to get out of bed without notifying staff , to avoid a fall with injury. Knee high SCDs to be held, due to osteomyelitis of the right foot, along with left leg wounds. Patient already on Eliquis; will therefore hold Lovenox or heparin. Impression and plans were discussed with patient, who concurs. Time spent in evaluation and management of patient: 73 minutes. (3) Hyperkalemia Is this a current diagnosis for this admission?: YesPlan: Hyperkalemia protocol per emergency room physician. Follow-up chemistry. (4) Osteomyelitis of right foot Is this a current diagnosis for this admission?: YesPlan: Wound culture results from recent hospital stay reviewed. Antibiotics changed to gentamicin. Pharmacy to assist with dosing. (5) Anemia Qualifiers: Anemia type: unspecified type Qualified Code(s): D64.9 - Anemia, unspecified Is this a current diagnosis for this admission?: YesPlan: 2 units ordered transfused by emergency room physician. Follow-up posttransfusion hemoglobin and hematocrit. No outward evidence of active bleeding at present time. Chronic anemia. (6) Anticoagulated Is this a current diagnosis for this admission?: YesPlan: Resume home medications as appropriate once these have been reviewed. (7) Atrial fibrillation Qualifiers: Atrial fibrillation type: unspecified Qualified Code(s): I48.91 - Unspecified atrial fibrillation Is this a current diagnosis for this admission?: YesPlan: Clinically stable at present.Resume home medications as appropriate once these have been reviewed. (8) COPD (chronic obstructive pulmonary disease) Qualifiers: COPD type: unspecified COPD Qualified Code(s): J44.9 - Chronic obstructive pulmonary disease, unspecified Is this a current diagnosis for this admission?: YesPlan: Clinically stable at present.Resume home medications as appropriate once these have been reviewed. (9) Obstructive sleep apnea Is this a current diagnosis for this admission?: YesPlan: At bedtime and when necessary CPAP. (10) Diabetes mellitus type 1 with complications Is this a current diagnosis for this admission?: YesPlan: Accuchecks with appropriate sliding scale coverage. Home medications to be reviewed and resumed as appropriate. - Inpatient Certification Based on my medical assessment, after consideration of the patient's comorbidities, presenting symptoms, or acuity I expect that the services needed warrant INPATIENT care.: Yes I certify that my determination is in accordance with my understanding of Medicare's requirements for reasonable and necessary INPATIENT services [42 CFR 412.3e].: Yes Medical Necessity: Significant Comorbidiites Make Outpatient Treatment Too Risky , Need Close Monitoring Due to Risk of Patient Decompensation, Need For Continuous Telemetry Monitoring, Need for IV Antibiotics, Risk of Diagnosis Which Will Require Inpatient Eval/Care/Monitoring Post Hospital Care: D/C or Transfer Summary
[2016-08-05] MEDS ORDERED: TIOTROPIUM BROMIDE DPI 5 CAP/KIT (18 MCG/CAP) IH SCH ×2 (00:45→10:00)
[2016-08-05 03:26] LABS: ALANINE AMINOTRANSFERASE 70 U/L (21-72); ALKALINE PHOSPHATASE 149 U/L (38-126); ANION GAP 11 (5-19); ASPARTATE AMINO TRANSFERASE 97 U/L (17-59); BILIRUBIN,TOTAL 0.6 mg/dL (0.2-1.3); BLOOD UREA NITROGEN 42 mg/dL (7-20); CALCIUM 8.8 mg/dL (8.4-10.2); CARBON DIOXIDE 27 mmol/L (22-30); CHLORIDE 101 mmol/L (98-107); CREATININE RESULT 3.79 mg/dL (0.52-1.25); GLUCOSE 195 mg/dL (75-110); SODIUM 138.6 mmol/L (137-145); TOTAL PROTEIN 7.4 g/dL (6.3-8.2)
[2016-08-05] MEDS ORDERED: TIOTROPIUM BROMIDE DPI 5 CAP/KIT (18 MCG/CAP) IH ONE (04:06)
[2016-08-05] MEDS ORDERED: NORMAL SALINE 1000 ML 500 ML IV PRN (04:16)
[2016-08-05] MEDS: HYDRALAZINE HCL 50 MG TABLET PO SCH ×3 (05:20→21:53)
[2016-08-05] MEDS ORDERED: GENTAMICIN SULFATE/PF INJ 20 MG/2 ML VIAL ONE (05:36)
[2016-08-05] MEDS ORDERED: GENTAMICIN SULFATE INJ 80 MG/2 ML VIAL ONE (05:36)
[2016-08-05] MEDS: IPRATROPIUM/ALBUTEROL 0.5-2.5 MG/3 ML AMPUL NEB PRN ×2 (05:51→09:00)
[2016-08-05] MEDS ORDERED: GENTAMICIN SULFATE INJ 80 MG/2 ML VIAL IV PRN (06:00)
[2016-08-05] MEDS ORDERED: GENTAMICIN SULFATE 120 MG in DEXTROSE 5%-WATER 100 ML IV ONE (06:00)
--- NOTE | 2016-08-05 07:33 | CONSULTATION REPORT E ---
Consultation Report NAME: CHARLA WEBB : 1935 AGE: 81Y DATE: 08/05/2016 323 A TO: CHRISTINA PENNY M.D. FROM: NAVYA KIRBY M.D. Requesting Physician HISTORY: A 81-year-old male with patient morbidly obese with diabetes, COPD, peripheral vascular disease, chronic renal stasis, lymphedema with right foot lateral aspect chronic wound with possible osteomyelitis, admitted. Consulted for the same. PAST MEDICAL HISTORY: 1. History of COPD. 2. Diabetes. 3. Morbid obesity. 4. Peripheral vascular disease. 5. Venous stasis. 6. Osteomyelitis. 7. Right foot ulcer. 8. Amputation of the 4th toe done in the past. PHYSICAL EXAMINATION: GENERAL: He is in respiratory difficulty to some degree. Afebrile. HEENT: Head is atraumatic, normocephalic. NECK: No lymphadenopathy in the neck. CHEST: Both lungs good air entry, but some wheeze present. CARDIOVASCULAR: Both heart sounds are regular. ABDOMEN: Soft, nontender. EXTREMITIES: Warm, well perfused. He has a chronic edema, venous stasis. Right foot lateral aspect open wound with small amount of debris. No obvious necrotic tissue. IMPRESSION: Possible osteomyelitis, peripheral vascular studies, but mostly medical management at this point and wound care. DICTATING PHYSICIAN: CHRISTINA PENNY M.D. [id number] PHY#: [id number] ID: [id number] JOB#: [id number] ACCT: [id number] cc:CHRISTINA PENNY M.D. >
[2016-08-05] MEDS ORDERED: METOPROLOL SUCCINATE 25 MG TAB.SR.24H PO SCH (10:00)
[2016-08-05] MEDS ORDERED: AMLODIPINE BESYLATE 10 MG TABLET PO SCH (10:00)
[2016-08-05 10:29] LABS: ABSOLUTE LYMPHOCYTES (AUTO) 0.4 10^3/uL (0.5-4.7); ABSOLUTE MONOCYTES (AUTO) 0.4 10^3/uL (0.1-1.4); ABSOLUTE NEUT (AUTO) 6.5 10^3/uL (1.7-8.2); BASOPHILS % (AUTO) 0.4 % (0-2); EOSINOPHILS % (AUTO) 0.1 % (0-6); HEMATOCRIT 24.9 % (37.9-51.0); HGB HCT DIFFERENCE -0.9; LYMPHOCYTES % (AUTO) 5.7 % (13-45); MEAN CORPUSCULAR HEMOGLOBIN 25.8 pg (27.0-33.4); MEAN CORPUSCULAR VOLUME 81 fl (80-97); MONOCYTES % (AUTO) 4.9 % (3-13); RED BLOOD COUNT 3.08 10^6/uL (4.35-5.55); RED CELL DISTRIBUTION WIDTH 20.7 % (11.5-14.0); SEGMENTED NEUTROPHILS % (AUTO) 88.9 % (42-78); WHITE BLOOD COUNT 7.3 10^3/uL (4.0-10.5)
[2016-08-05] MEDS: GLIPIZIDE 10 MG TABLET PO SCH (10:40)
[2016-08-05] MEDS: POLYETHYLENE GLYCOL 3350 POWDER 17 GM/1 PACKET PO SCH (10:40)
[2016-08-05] MEDS: FOLIC ACID/VITAMIN B COMP W-C CAPSULE PO SCH (10:41)
[2016-08-05] MEDS: ASPIRIN 325 MG TABLET, ENT COATED PO SCH (10:41)
[2016-08-05] MEDS: DOCUSATE SODIUM 100 MG CAPSULE PO SCH ×2 (10:41→18:32)
[2016-08-05] MEDS: APIXABAN 5 MG TABLET PO SCH ×2 (10:42→21:54)
[2016-08-05] MEDS: FERROUS SULFATE 325 MG TABLET PO SCH ×2 (10:42→18:32)
[2016-08-05] MEDS: ISOSORBIDE MONONITRATE 30 MG TAB.ER.24H PO SCH (10:43)
[2016-08-05] MEDS ORDERED: NORMAL SALINE 10 ML SDV (AFTER EACH USE) IV PRN (10:44)
[2016-08-05 10:48] LABS: ANION GAP 11 (5-19); BLOOD UREA NITROGEN 39 mg/dL (7-20); CALCIUM 8.9 mg/dL (8.4-10.2); CARBON DIOXIDE 27 mmol/L (22-30); CHLORIDE 100 mmol/L (98-107); CREATININE RESULT 3.64 mg/dL (0.52-1.25); GLUCOSE 261 mg/dL (75-110); POTASSIUM 5.3 mmol/L (3.6-5.0); SODIUM 138.4 mmol/L (137-145)
[2016-08-05] MEDS ORDERED: LEVALBUTEROL HCL NEB 1.25 MG/3 ML AMPUL NEB PRN (11:01)
--- NOTE | 2016-08-05 11:13 | PDOC PROGRESS REPORT ---
Subjective Progress Note for:: 08/05/16 Subjective:: Patient reports that his foot is getting better in terms of the infection. Patient however has shortness of breath. Minimal coughing. Intermittent wheezing. No nausea or vomiting. No chills or fever. No chest pain. Patient has pulmonary edema findings on chest x-ray on presentation. Patient received intravenous fluids and packed RBC Physical Exam Vital Signs: Temp Pulse Resp BP Pulse Ox 98.0 F 85 26 H 152/70 H 94 08/05/16 07:47 08/05/16 08:52 08/05/16 08:52 08/05/16 07:47 08/05/16 08:52 Intake & Output 08/04/16 08/05/16 08/06/16 06:59 06:59 06:59 Intake Total 733 Balance 733 Weight 124.3 kg General appearance: PRESENT: no acute distress, obese Head exam: PRESENT: normocephalic Eye exam: PRESENT: conjunctiva pale, EOMI Mouth exam: PRESENT: moist, neck supple Neck exam: ABSENT: JVD Respiratory exam: PRESENT: rales - few on the lower lung garcia. ABSENT: crackles, wheezes Cardiovascular exam: PRESENT: RRR. ABSENT: gallop GI/Abdominal exam: PRESENT: soft. ABSENT: distended, tenderness Extremities exam: PRESENT: +1 edema, other - For dressing and the right clean, no foul-smelling drainage noted Neurological exam: PRESENT: alert, awake Skin exam: PRESENT: dry, warm. ABSENT: cyanosis Results Laboratory Results: 08/05/16 10:08 08/05/16 10:08 08/05/16 08/05/16 08/05/16 02:57 10:08 10:08 WBC 7.3 RBC 3.08 L Hgb 8.0 L Hct 24.9 L MCV 81 MCH 25.8 L MCHC 32.0 RDW 20.7 H Plt Count 237 Seg Neutrophils % 88.9 H Lymphocytes % 5.7 L Monocytes % 4.9 Eosinophils % 0.1 Basophils % 0.4 Absolute Neutrophils 6.5 Absolute Lymphocytes 0.4 L Absolute Monocytes 0.4 Absolute Eosinophils 0.0 Absolute Basophils 0.0 Sodium 138.6 138.4 Potassium 5.0 5.3 H Chloride 101 100 Carbon Dioxide 27 27 Anion Gap 11 11 BUN 42 H 39 H Creatinine 3.79 H 3.64 H Est GFR ( Amer) 19 L 20 L Est GFR (Non-Af Amer) 15 L 16 L Glucose 195 H 261 H Calcium 8.8 8.9 Total Bilirubin 0.6 AST 97 H ALT 70 Alkaline Phosphatase 149 H Total Protein 7.4 Albumin 3.0 L Impressions: Humerus X-Ray 08/04/16 00:00 IMPRESSION: NO SIGNIFICANT RADIOGRAPHIC ABNORMALITY. NO RADIOPAQUE FOREIGN BODY. Renal Ultrasound 08/05/16 00:00 IMPRESSION: No hydronephrosis. Increased echogenicity of the bilateral renal parenchyma, may be seen with medical renal disease. Chest X-Ray 08/05/16 06:30 IMPRESSION: Rehydration versus progressing sepsis or edema. Assessment & Plan - Diagnosis (1) Fluid overload Qualifiers: Hypervolemia type: unspecified Qualified Code(s): E87.70 - Fluid overload, unspecified Is this a current diagnosis for this admission?: Yes (2) Acute on chronic renal failure Is this a current diagnosis for this admission?: Yes (3) Anemia of chronic disease Is this a current diagnosis for this admission?: Yes (4) Osteomyelitis of right foot Qualifiers: Qualified Code(s): M86.171 - Other acute osteomyelitis, right ankle and foot Is this a current diagnosis for this admission?: Yes (5) Hyperlipidemia Qualifiers: Hyperlipidemia type: unspecified Qualified Code(s): E78.5 - Hyperlipidemia, unspecified Is this a current diagnosis for this admission?: Yes (6) Hypertension Qualifiers: Hypertension type: essential hypertension Qualified Code(s): I10 - Essential (primary) hypertension Is this a current diagnosis for this admission?: Yes (7) COPD (chronic obstructive pulmonary disease) Qualifiers: COPD type: unspecified COPD Qualified Code(s): J44.9 - Chronic obstructive pulmonary disease, unspecified Is this a current diagnosis for this admission?: Yes (8) Diabetes mellitus type 2 in obese Is this a current diagnosis for this admission?: Yes (9) Atrial fibrillation Qualifiers: Atrial fibrillation type: chronic Qualified Code(s): I48.2 - Chronic atrial fibrillation Is this a current diagnosis for this admission?: Yes (10) Obstructive sleep apnea Is this a current diagnosis for this admission?: Yes - Time Time Spent with patient: 25-34 minutes - Plan Summary Plan Summary: We are going to start the patient on intravenous Lasix and oral Zaroxolyn. Monitor creatinine as well as hematocrit. We will give as needed bronchodilators for wheezing. Awaiting nephrology evaluation. We will discontinue gentamicin and keep prior antibiotic with Invanz and Zyvox. Continue wound care.
[2016-08-05] MEDS ORDERED: METOLAZONE 5 MG TABLET PO ONE (11:30)
[2016-08-05] MEDS ORDERED: FUROSEMIDE INJ/PF 40 MG/4 ML SDV IV ONE (11:30)
--- NOTE | 2016-08-05 14:46 | Physician Advisory Note ---
Physician Advisor ProgressNote .: [facility] medical [facility] for this patient. Physician Advisor Statement: Nice documentation of chronic diastolic CHF, (& then acute on chronic diastolic CHF), ARF, CKD-stage 3, chronic Afib. Possible documentation opportunities if attending agrees: 1. "Anemia of acute blood loss due to accidental removal of PICC line (Hgb drop from 9.0 this mo), on top of chronic anemia of chronic kidney dz & chronic blood loss from labs" [Hgb was 9.0 on 07/24/16; RDW steadily increasing since 14's in mid-Jun up to 17s @end Jun.) 2. "ARF, suspected ____ type, on top of CKD stage 3 with baseline Cr 1.8" [ATN , Acute cortical necrosis, medullary necrosis, post-procedural, post-traumatic , SPECIFY other type ] 3. Please make it very clear which type of DM this pt has. H&P states DM type 1 in HPI, then both DM-1 & DM-2 under PMH. 1st PN states DM type 2. As always, if concerned about any unstable VS or abnormal labs, please comment on them & note what doing about them, & please document each day the potential clinical problems you are concerned could occur if pt not kept in hospital for tx at this time. Discussion: 81yo male w/ chronic co-morbidities including chronic Afib, HTN, diastolic CHF, CKD-3, COPD, DM type __, prostate CA, depression, obesity - presented 2/12 PM to ED w/recent accidental removal of PICC line he's needing for IV abx for osteomyelitis. (+) "small amt of blood at the site" on arm in ED per ED dr. farooq,, HR 65, RR18- 26, BP 124/83. Hgb 7.1, K 5.7, BUN 42, Cr 3.71. CXR w/pulm edema pattern & cardiomegaly. Attending ordered renal U/S, change in IV abx to gent, nephrol consult, serial labs, judicious IVF given CHF tendency. Status: Pt with ARF/hyperkalemia, need for transfusion for chronic anemia, is most appropriate for Outpt Obs status initially. However, this pt also at high risk for developing acute CHF with IVF/transfusion, especially given the initial CXR info, and indeed has done so while still having no appreciable improvement in ARF (Cr 3.79 then 3.64), recurrent hypokalemia to 5.3, & Hgb only coming up to 8.0 after transfusion. Pt now w/new sx of SOB, with coughing. Needing IV Lasix with close monitoring of lytes & renal fn, nephrol consult input. Pt requiring O2 for hypoxemia recurrently since arrival, even when not middle of night/CPAP times for his JUNIOR. Ongoing tx in inpatient hospital setting definitely medically reasonable & necessary to protect pt's health, safety, & medical condition. This pt clearly appropriate for Inpt status at present. Thanks for your help with documentation accuracy/specificity improvement! Tanika Mathews MD [facility] Physician Advisor, Fellow of Hospital Medicine
[2016-08-05] MEDS ORDERED: ERTAPENEM SODIUM 0.5 GM in NORMAL SALINE 50 ML IV ONE (15:00)
[2016-08-05] MEDS ORDERED: FUROSEMIDE INJ/PF 40 MG/4 ML SDV IV SCH (18:00)
[2016-08-05] MEDS ORDERED: LINEZOLID 600 MG RTU 300 ML IV SCH ×2 (18:00→22:00)
[2016-08-05] MEDS: INSULIN LISPRO 100 UNIT/ML 3 ML VIAL SUBCUT PRN (18:36)
[2016-08-05] MEDS ORDERED: FUROSEMIDE INJ/PF 40 MG/4 ML SDV IV PRN (19:09)
--- NOTE | 2016-08-05 19:25 | PDOC CONSULTATION ---
Consultation Consult Date: 08/05/16 Consult reason:: Acute on chronic kidney disease in the setting of the right foot osteomyelitis on chronic antibiotics. History of Present Illness Admission Date/PCP: 08/04/16 23:47 SUDEEP CHEUNG History of Present Illness: Mr. 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 His discharge creatinine in the middle of June was 1.7-1.9 and present admission creatinine is 3.7. Past Medical History Cardiac Medical History: Reports: Atrial Fibrillation, Hyperlipidemia, Hypertension-primary Denies: DVT, Myocardial Infarction, Pulmonary Embolism Pulmonary Medical History: Reports: Chronic Obstructive Pulmonary Disease (COPD) , Sleep Apnea EENT Medical History: Reports: Eyes - Reading glasses Denies: Ears, Throat Neurological Medical History: Denies: Hemorrhagic CVA, Ischemic CVA, Seizures Endocrine Medical History: Reports: Diabetes Mellitus Type 2 - SINCE 1985 Denies: Hyperthyroidism, Hypothyroidism Renal/ Medical History: Reports: Chronic Kidney Disease Stage III GI Medical History: Denies: Gastroesophageal Reflux Disease, Peptic Ulcer Disease Musculoskeltal Medical History: Denies: Arthritis Skin Medical History: Reports: None Psychiatric Medical History: Reports: Depression Denies: Alcohol Dependency, Substance Abuse, Tobacco Dependency Infectious Medical History: Reports: Methicillin-resist Staph Aureus Hematology Medical History: Reports Anemia of Chronic Kidney Disease Past Surgical History Past Surgical History: Reports: Orthopedic Surgery - Right fifth metatarsal amputation, Other - No surgery many years ago while in the [place]. Social History Lives with: Halfway Smoking Status: Unknown if Ever Smoked Frequency of Alcohol Use: None Hx Recreational Drug Use: No Drugs: None Hx Prescription Drug Abuse: No - Advance Directive Resuscitation Status: Full Code Family History Parental Family History Reviewed: Yes - negative for ESRD Children Family History Reviewed: No Sibling(s) Family History Reviewed.: No Medication/Allergy Home Medications: Amlodipine Besylate [Norvasc 10 mg Tablet] 10 mg PO DAILY 07/03/16 Apixaban [Eliquis 5 mg Tablet] 5 mg PO Q12 07/03/16 Aspirin [Ecotrin] 325 mg PO DAILY 07/03/16 B Complex & C No.20/Folic Acid [Renal Caps Softgel] 1 cap PO DAILY 07/03/16 Ergocalciferol (Vitamin D2) [Vitamin D2] 50,000 units PO ABDALLA 07/03/16 Ferrous Sulfate [Feosol 325 mg Tablet] 325 mg PO BID 07/03/16 Glipizide [Glucotrol 10 mg Tablet] 10 mg PO DAILY 07/03/16 Isosorbide Mononitrate [Imdur 30 mg Tablet.er] 30 mg PO DAILY 07/03/16 Metoprolol Tartrate [Lopressor 25 mg Tablet] 25 mg PO DAILY 07/03/16 Pantoprazole Sodium [Protonix] 40 mg PO DAILY 07/03/16 Potassium Chloride [Klor-Con 10] 10 meq PO DAILY 07/03/16 Tiotropium Pitts [Spiriva Handihaler 18 mcg/dose (30 Dose)] 1 cap IH DAILY 05/09 Ertapenem Sodium [Invanz Inj 1 gm Vial] 1 gm IV QPM #0 vial 07/24/16 Furosemide [Lasix 40 mg Tablet] 40 mg PO DAILY #0 tablet 07/24/16 Hydralazine HCl [Apresoline 50 mg Tablet] 100 mg PO Q8 #0 tablet 07/24/16 Insulin Glargine,Hum.rec.anlog [Lantus] 30 units SQ QHS #0 07/24/16 Ipratropium/Albuterol Sulfate [Duoneb 3 ml Ampul] 3 ml NEB [id number] PRN #0 vial.neb 07/24/16 Polyethylene Glycol 3350 [Miralax Powder 17 gm/Packet] 17 gm PO DAILY #0 powd.pack 07/24/16 Sulfamethoxazole/Trimethoprim [Bactrim Ds Tablet] 1 each PO BID #28 tablet 07/24 Insulin Lispro [Humalog] See Protocol SQ ACHS PRN 08/05/16 Allergies/Adverse Reactions: PPD black rubber mix Allergy (Verified 08/05/16 00:06) Review of Systems Constitutional: PRESENT: weakness. ABSENT: fever(s), headache(s), night sweats Nose, Mouth, and Throat: ABSENT: mouth pain Cardiovascular: PRESENT: dyspnea on exertion, edema. ABSENT: orthropnea Respiratory: PRESENT: dyspnea. ABSENT: hemoptysis Gastrointestinal: ABSENT: abdominal pain, bloating, coffee ground emesis, diarrhea, heartburn, hematochezia, melena, nausea, vomiting Genitourinary: ABSENT: dysuria, hematuria Integumentary: ABSENT: pruritus Neurological: ABSENT: confusion, focal weakness Physical Exam Vital Signs: Temp Pulse Resp BP Pulse Ox 97.7 F 72 23 H 144/52 H 92 08/05/16 16:10 08/05/16 16:10 08/05/16 16:10 08/05/16 16:10 08/05/16 16:10 Intake & Output 08/04/16 08/05/16 08/06/16 06:59 06:59 06:59 Intake Total 733 290 Balance 733 290 Weight 124.3 kg General appearance: PRESENT: mild distress Eye exam: PRESENT: EOMI, PERRLA. ABSENT: nystagmus Ear exam: PRESENT: normal external ear exam Mouth exam: PRESENT: moist Neck exam: ABSENT: lymphadenopathy, meningismus, tenderness, thyromegaly, tracheal deviation Respiratory exam: PRESENT: clear to auscultation cornell, symmetrical. ABSENT: crackles - In basis, rhonchi, unlabored Cardiovascular exam: PRESENT: irregular rhythm, +S1, +S2 GI/Abdominal exam: PRESENT: distended, soft. ABSENT: firm, guarding, mass, tenderness Extremities exam: PRESENT: +2 edema - with changes of combination of venous stasis and lymphedema Neurological exam: PRESENT: alert, awake, oriented to person, oriented to place , oriented to time Psychiatric exam: PRESENT: appropriate affect Skin exam: PRESENT: mottled - The lower extremities with diffuse venostasis changes. ABSENT: cyanosis, erythema, skin tears, vesicles Results Laboratory Results: 08/05/16 10:08 08/05/16 10:08 08/05/16 08/05/16 08/05/16 02:57 10:08 10:08 WBC 7.3 RBC 3.08 L Hgb 8.0 L Hct 24.9 L MCV 81 MCH 25.8 L MCHC 32.0 RDW 20.7 H Plt Count 237 Seg Neutrophils % 88.9 H Lymphocytes % 5.7 L Monocytes % 4.9 Eosinophils % 0.1 Basophils % 0.4 Absolute Neutrophils 6.5 Absolute Lymphocytes 0.4 L Absolute Monocytes 0.4 Absolute Eosinophils 0.0 Absolute Basophils 0.0 Sodium 138.6 138.4 Potassium 5.0 5.3 H Chloride 101 100 Carbon Dioxide 27 27 Anion Gap 11 11 BUN 42 H 39 H Creatinine 3.79 H 3.64 H Est GFR ( Amer) 19 L 20 L Est GFR (Non-Af Amer) 15 L 16 L Glucose 195 H 261 H Calcium 8.8 8.9 Total Bilirubin 0.6 AST 97 H ALT 70 Alkaline Phosphatase 149 H Total Protein 7.4 Albumin 3.0 L Impressions: Humerus X-Ray 08/04/16 00:00 IMPRESSION: NO SIGNIFICANT RADIOGRAPHIC ABNORMALITY. NO RADIOPAQUE FOREIGN BODY. Guidance Fluoroscopy 08/05/16 00:00 IMPRESSION: SUCCESSFUL PLACEMENT OF A 5 FR DUAL LUMEN 44 CM PICC IN THE left basilic VEIN. Interventional Vascular Procedure 08/05/16 00:00 IMPRESSION: SUCCESSFUL PLACEMENT OF A 5 FR DUAL LUMEN 44 CM PICC IN THE left basilic VEIN. PICC Line Insertion 08/05/16 00:00 IMPRESSION: SUCCESSFUL PLACEMENT OF A 5 FR DUAL LUMEN 44 CM PICC IN THE left basilic VEIN. Renal Ultrasound 08/05/16 00:00 IMPRESSION: No hydronephrosis. Increased echogenicity of the bilateral renal parenchyma, may be seen with medical renal disease. Chest X-Ray 08/05/16 06:30 IMPRESSION: Rehydration versus progressing sepsis or edema. Assessment & Plan - Diagnosis (1) Acute on chronic renal failure Is this a current diagnosis for this admission?: YesPlan: Patient is having worsening of his ckd stage III. Most likely causes would be ATN and worsening heart failure. I did review his echo from June of this year which shows that he has moderate diastolic heart failure in combination with cor pulmonale and raise right ventricular pressure of 50-60 mmHg. Most likely a combination of sleep apnea and pickwickian syndrome. Obviously if the osteomyelitis is nonhealing and it is highly likely that it that could be a possibility given his morbid obesity and the fact that it could be having vascular lesions given the long-standing history of diabetes hypertension and ckd. If that's the case to treatments he is currently on for MRSA might not be helping in the long run which could reflect in his worsening renal functions. Signs that he is also showing for evidences of oh worsening heart failure predominantly right heart even though obviously she has got diastolic left ventricular dysfunction as well. His attention is also rising. The overall situation looks quite leading to a possibility of he needing to be on dialysis for both congestive heart failure and electrolytes issues. Continue to monitor this high-risk patient (2) Anemia of chronic disease Is this a current diagnosis for this admission?: Yes (3) Atrial fibrillation Qualifiers: Atrial fibrillation type: chronic Qualified Code(s): I48.2 - Chronic atrial fibrillation Is this a current diagnosis for this admission?: YesPlan: On Elquis. Please dose for GFR of approximately 25 mL/m. (4) Diastolic CHF Qualifiers: Congestive heart failure chronicity: chronic Qualified Code(s): I50.32 - Chronic diastolic (congestive) heart failure Is this a current diagnosis for this admission?: YesPlan: He is in a combination of left or right heart failure. See his response to current diuretic regimen and if he is not responding he'll need to go on dialysis. Discussed the pros and cons of dialysis patient willing to proceed. (5) Fluid overload Qualifiers: Hypervolemia type: unspecified Qualified Code(s): E87.70 - Fluid overload, unspecified Is this a current diagnosis for this admission?: Yes (6) Hyperkalemia Is this a current diagnosis for this admission?: YesPlan: Put on low K diet and monitor. (7) Acute on chronic diastolic congestive heart failure Plan: As mentioned earlier. See response to current diuretic regimen. (8) Acute worsening of stage 3 chronic kidney disease Is this a current diagnosis for this admission?: YesPlan: Patient is proceeded into ckd stage IV with fluid overload and electrolyte disturbances in the form of hyperkalemia. If patient is not responding to current medication regimen he will need to go on dialysis. (9) Anemia due to acute blood loss Plan: Check iron status and see if he needs iron replacement (11) Hypertension Qualifiers: Hypertension type: essential hypertension Qualified Code(s): I10 - Essential (primary) hypertension Is this a current diagnosis for this admission?: Yes (12) Morbid obesity Qualifiers: Obesity type: unspecified obesity type Qualified Code(s): E66.01 - Morbid (severe) obesity due to excess calories (13) Osteomyelitis of right foot Qualifiers: Qualified Code(s): M86.171 - Other acute osteomyelitis, right ankle and foot Is this a current diagnosis for this admission?: YesPlan: With MRSA osteomyelitis. Patient currently on ertapenem and linezolid (14) Atrial fibrillation Qualifiers: Atrial fibrillation type: unspecified Qualified Code(s): I48.91 - Unspecified atrial fibrillation Is this a current diagnosis for this admission?: Yes (15) Obstructive sleep apnea Is this a current diagnosis for this admission?: YesPlan: She should be on C Pap. Obviously he has got features of cor pulmonale
[2016-08-05] MEDS: METOPROLOL SUCCINATE 50 MG TAB.SR.24H PO SCH (21:51)
[2016-08-05] MEDS: METOLAZONE 5 MG TABLET PO SCH (21:52)
[2016-08-05] MEDS: NORMAL SALINE 10 ML SDV (SCHEDULED) IV SCH (21:56)
[2016-08-05] MEDS: INSULIN GLARGINE,HUM.REC.ANLOG 300 UNIT/3 ML INSULN.PEN SUBCUT SCH (21:57)
[2016-08-05] MEDS ORDERED: ERTAPENEM SODIUM 0.5 GM in NORMAL SALINE 50 ML IV SCH (22:00)
[2016-08-05] MEDS ORDERED: INSULIN GLARGINE,HUM.REC.ANLOG 1,000 UNIT/10 ML UNIT SUBCUT SCH (22:00)
[2016-08-05] MEDS: LINEZOLID 600 MG RTU 300 ML IV SCH (22:16)
[2016-08-06 01:14] LABS: APPEARANCE,URINE SLIGHTLY-CLOUDY; BILIRUBIN,URINE NEGATIVE (NEGATIVE); GLUCOSE, URINE 50 mg/dL (NEGATIVE); KETONES,URINE NEGATIVE (NEGATIVE); LEUKOCYTE ESTERASE,URINE NEGATIVE (NEGATIVE); NITRITE,URINE NEGATIVE (NEGATIVE); PROTEIN,URINE 30 mg/dL (NEGATIVE); URINE SPECIFIC GRAVITY 1.011; UROBILINOGEN,URINE NEGATIVE mg/dL (<2.0)
[2016-08-06 02:37] LABS: ABSOLUTE LYMPHOCYTES (AUTO) 0.8 10^3/uL (0.5-4.7); ABSOLUTE MONOCYTES (AUTO) 0.6 10^3/uL (0.1-1.4); ABSOLUTE NEUT (AUTO) 6.2 10^3/uL (1.7-8.2); BASOPHILS % (AUTO) 0.1 % (0-2); EOSINOPHILS % (AUTO) 0.3 % (0-6); HEMOGLOBIN 8.8 g/dL (13.5-17.0); HGB HCT DIFFERENCE -0.6; LYMPHOCYTES % (AUTO) 10.3 % (13-45); MEAN CORPUSCULAR HEMOGLOBIN 26.1 pg (27.0-33.4); MEAN CORPUSCULAR HGB CONC 32.5 g/dL (32.0-36.0); MEAN CORPUSCULAR VOLUME 80 fl (80-97); MONOCYTES % (AUTO) 7.5 % (3-13); RED BLOOD COUNT 3.36 10^6/uL (4.35-5.55); RED CELL DISTRIBUTION WIDTH 19.7 % (11.5-14.0); SEGMENTED NEUTROPHILS % (AUTO) 81.8 % (42-78); WHITE BLOOD COUNT 7.6 10^3/uL (4.0-10.5)
[2016-08-06] MEDS: HYDRALAZINE HCL 50 MG TABLET PO SCH ×3 (05:13→21:28)
[2016-08-06 05:35] LABS: HEMATOCRIT 25.9 % (37.9-51.0); HEMOGLOBIN 8.5 g/dL (13.5-17.0); HGB HCT DIFFERENCE -0.4; MEAN CORPUSCULAR HEMOGLOBIN 26.5 pg (27.0-33.4); MEAN CORPUSCULAR HGB CONC 32.8 g/dL (32.0-36.0); MEAN CORPUSCULAR VOLUME 81 fl (80-97); RED BLOOD COUNT 3.21 10^6/uL (4.35-5.55); RED CELL DISTRIBUTION WIDTH 19.7 % (11.5-14.0); WHITE BLOOD COUNT 7.6 10^3/uL (4.0-10.5)
[2016-08-06 05:50] LABS: ANION GAP 11 (5-19); BLOOD UREA NITROGEN 39 mg/dL (7-20); CALCIUM 8.6 mg/dL (8.4-10.2); CARBON DIOXIDE 27 mmol/L (22-30); CHLORIDE 100 mmol/L (98-107); CREATININE RESULT 3.33 mg/dL (0.52-1.25); GLUCOSE 134 mg/dL (75-110); PHOSPHORUS 5.2 mg/dL (2.5-4.5); POTASSIUM 4.9 mmol/L (3.6-5.0); SODIUM 138.2 mmol/L (137-145)
[2016-08-06] MEDS ORDERED: FUROSEMIDE INJ/PF 40 MG/4 ML SDV IV SCH (09:54)
--- NOTE | 2016-08-06 10:00 | PDOC PROGRESS REPORT ---
Subjective Progress Note for:: 08/06/16 Subjective:: Patient reports that his foot is getting better in terms of the infection. Patient however has shortness of breath but improved compared to yesterday. Minimal coughing. Intermittent wheezing. No nausea or vomiting. No chills or fever. No chest pain. Patient has pulmonary edema findings on chest x-ray on presentation. No increasing congestion after transfusion. Physical Exam Vital Signs: Temp Pulse Resp BP Pulse Ox 98.1 F 70 24 H 139/60 H 90 L 08/06/16 05:00 08/06/16 07:00 08/06/16 05:00 08/06/16 05:00 08/06/16 05:00 Intake & Output 08/05/16 08/06/16 08/07/16 06:59 06:59 06:59 Intake Total 733 1884 Output Total 200 Balance 733 1684 Weight 124.3 kg 122.9 kg General appearance: PRESENT: no acute distress, obese Head exam: PRESENT: normocephalic Eye exam: PRESENT: EOMI Mouth exam: PRESENT: moist, neck supple Neck exam: ABSENT: JVD Respiratory exam: PRESENT: rales - Bilateral. ABSENT: rhonchi, wheezes Cardiovascular exam: PRESENT: RRR. ABSENT: gallop GI/Abdominal exam: PRESENT: distended - Obese, soft. ABSENT: tenderness Extremities exam: PRESENT: +2 edema Neurological exam: PRESENT: alert, awake, oriented to situation Skin exam: PRESENT: dry, warm. ABSENT: cyanosis Results Laboratory Results: 08/06/16 04:51 08/06/16 04:51 08/05/16 08/05/16 08/06/16 10:08 10:08 00:34 WBC 7.3 RBC 3.08 L Hgb 8.0 L Hct 24.9 L MCV 81 MCH 25.8 L MCHC 32.0 RDW 20.7 H Plt Count 237 Seg Neutrophils % 88.9 H Lymphocytes % 5.7 L Monocytes % 4.9 Eosinophils % 0.1 Basophils % 0.4 Absolute Neutrophils 6.5 Absolute Lymphocytes 0.4 L Absolute Monocytes 0.4 Absolute Eosinophils 0.0 Absolute Basophils 0.0 Retic Count (auto) Absolute Retic Sodium 138.4 Potassium 5.3 H Chloride 100 Carbon Dioxide 27 Anion Gap 11 BUN 39 H Creatinine 3.64 H Est GFR ( Amer) 20 L Est GFR (Non-Af Amer) 16 L Glucose 261 H Calcium 8.9 Phosphorus Iron TIBC % Saturation Transferrin Ferritin Vitamin B12 Folate Urine Color YELLOW Urine Appearance SLIGHTLY-CLOUDY Urine pH 5.0 Ur Specific Randle 1.011 Urine Protein 30 H Urine Glucose (UA) 50 H Urine Ketones NEGATIVE Urine Blood NEGATIVE Urine Nitrite NEGATIVE Ur Leukocyte Esterase NEGATIVE Urine WBC (Auto) 1 Urine RBC (Auto) 1 08/06/16 08/06/16 08/06/16 02:17 04:51 04:51 WBC 7.6 7.6 RBC 3.36 L 3.21 L Hgb 8.8 L 8.5 L Hct 27.0 L 25.9 L MCV 80 81 MCH 26.1 L 26.5 L MCHC 32.5 32.8 RDW 19.7 H 19.7 H Plt Count 236 231 Seg Neutrophils % 81.8 H Lymphocytes % 10.3 L Monocytes % 7.5 Eosinophils % 0.3 Basophils % 0.1 Absolute Neutrophils 6.2 Absolute Lymphocytes 0.8 Absolute Monocytes 0.6 Absolute Eosinophils 0.0 Absolute Basophils 0.0 Retic Count (auto) 3.55 H Absolute Retic 0.114 Sodium 138.2 Potassium 4.9 Chloride 100 Carbon Dioxide 27 Anion Gap 11 BUN 39 H Creatinine 3.33 H Est GFR ( Amer) 22 L Est GFR (Non-Af Amer) 18 L Glucose 134 H Calcium 8.6 Phosphorus 5.2 H Iron 21 L TIBC 208 L % Saturation 10 Transferrin Ferritin 222.00 Vitamin B12 890.0 Folate 14.80 Urine Color Urine Appearance Urine pH Ur Specific Randle Urine Protein Urine Glucose (UA) Urine Ketones Urine Blood Urine Nitrite Ur Leukocyte Esterase Urine WBC (Auto) Urine RBC (Auto) 08/06/16 09:05 WBC RBC Hgb Hct MCV MCH MCHC RDW Plt Count Seg Neutrophils % Lymphocytes % Monocytes % Eosinophils % Basophils % Absolute Neutrophils Absolute Lymphocytes Absolute Monocytes Absolute Eosinophils Absolute Basophils Retic Count (auto) Absolute Retic Sodium Potassium Chloride Carbon Dioxide Anion Gap BUN Creatinine Est GFR ( Amer) Est GFR (Non-Af Amer) Glucose Calcium Phosphorus Iron TIBC % Saturation Transferrin Cancelled Ferritin Vitamin B12 Folate Urine Color Urine Appearance Urine pH Ur Specific Randle Urine Protein Urine Glucose (UA) Urine Ketones Urine Blood Urine Nitrite Ur Leukocyte Esterase Urine WBC (Auto) Urine RBC (Auto) Impressions: Humerus X-Ray 08/04/16 00:00 IMPRESSION: NO SIGNIFICANT RADIOGRAPHIC ABNORMALITY. NO RADIOPAQUE FOREIGN BODY. Guidance Fluoroscopy 08/05/16 00:00 IMPRESSION: SUCCESSFUL PLACEMENT OF A 5 FR DUAL LUMEN 44 CM PICC IN THE left basilic VEIN. Interventional Vascular Procedure 08/05/16 00:00 IMPRESSION: SUCCESSFUL PLACEMENT OF A 5 FR DUAL LUMEN 44 CM PICC IN THE left basilic VEIN. PICC Line Insertion 08/05/16 00:00 IMPRESSION: SUCCESSFUL PLACEMENT OF A 5 FR DUAL LUMEN 44 CM PICC IN THE left basilic VEIN. Renal Ultrasound 08/05/16 00:00 IMPRESSION: No hydronephrosis. Increased echogenicity of the bilateral renal parenchyma, may be seen with medical renal disease. Chest X-Ray 08/05/16 06:30 IMPRESSION: Rehydration versus progressing sepsis or edema. Assessment & Plan - Diagnosis (1) Fluid overload Qualifiers: Hypervolemia type: unspecified Qualified Code(s): E87.70 - Fluid overload, unspecified Is this a current diagnosis for this admission?: Yes (2) Diastolic CHF Qualifiers: Congestive heart failure chronicity: chronic Qualified Code(s): I50.32 - Chronic diastolic (congestive) heart failure Is this a current diagnosis for this admission?: Yes (3) Acute on chronic renal failure Is this a current diagnosis for this admission?: Yes (4) Anemia of chronic disease Is this a current diagnosis for this admission?: Yes (5) Osteomyelitis of right foot Qualifiers: Qualified Code(s): M86.171 - Other acute osteomyelitis, right ankle and foot Is this a current diagnosis for this admission?: Yes (6) Hyperlipidemia Qualifiers: Hyperlipidemia type: unspecified Qualified Code(s): E78.5 - Hyperlipidemia, unspecified Is this a current diagnosis for this admission?: Yes (7) Hypertension Qualifiers: Hypertension type: essential hypertension Qualified Code(s): I10 - Essential (primary) hypertension Is this a current diagnosis for this admission?: Yes (8) COPD (chronic obstructive pulmonary disease) Qualifiers: COPD type: unspecified COPD Qualified Code(s): J44.9 - Chronic obstructive pulmonary disease, unspecified Is this a current diagnosis for this admission?: Yes (9) Diabetes mellitus type 2 in obese Is this a current diagnosis for this admission?: Yes (10) Atrial fibrillation Qualifiers: Atrial fibrillation type: chronic Qualified Code(s): I48.2 - Chronic atrial fibrillation Is this a current diagnosis for this admission?: Yes (11) Obstructive sleep apnea Is this a current diagnosis for this admission?: Yes - Time Time Spent with patient: 25-34 minutes - Plan Summary Plan Summary: Patient seems to have a positive balance posttransfusion. I am going to increase the patient's diuretic dose today and recheck chest x-ray in the morning. Continue to monitor strict input and output. Continue other medications and supportive care. Continue antibiotics.
[2016-08-06] MEDS: FOLIC ACID/VITAMIN B COMP W-C CAPSULE PO SCH (10:38)
[2016-08-06] MEDS: DOCUSATE SODIUM 100 MG CAPSULE PO SCH ×2 (10:38→17:47)
[2016-08-06] MEDS: APIXABAN 5 MG TABLET PO SCH ×2 (10:39→21:28)
[2016-08-06] MEDS: GLIPIZIDE 10 MG TABLET PO SCH (10:40)
[2016-08-06] MEDS: ASPIRIN 325 MG TABLET, ENT COATED PO SCH (10:40)
[2016-08-06] MEDS: METOLAZONE 5 MG TABLET PO SCH ×2 (10:41→21:25)
[2016-08-06] MEDS: FERROUS SULFATE 325 MG TABLET PO SCH ×2 (10:41→17:47)
[2016-08-06] MEDS: POLYETHYLENE GLYCOL 3350 POWDER 17 GM/1 PACKET PO SCH (10:42)
[2016-08-06] MEDS: ISOSORBIDE MONONITRATE 30 MG TAB.ER.24H PO SCH (10:42)
[2016-08-06] MEDS: NORMAL SALINE 10 ML SDV (SCHEDULED) IV SCH ×2 (10:43→21:25)
[2016-08-06] MEDS: LINEZOLID 600 MG RTU 300 ML IV SCH ×2 (10:43→21:21)
[2016-08-06] MEDS ORDERED: FUROSEMIDE INJ/PF 100 MG/10 ML SDV IV ONE (11:30)
[2016-08-06] MEDS: ERTAPENEM SODIUM 0.5 GM in NORMAL SALINE 50 ML IV SCH (11:58)
[2016-08-06] MEDS: INSULIN LISPRO 100 UNIT/ML 3 ML VIAL SUBCUT PRN ×2 (12:13→19:01)
[2016-08-06] MEDS: FUROSEMIDE INJ/PF 100 MG/10 ML SDV IV SCH (17:48)
--- NOTE | 2016-08-06 18:26 | PDOC PROGRESS REPORT ---
Subjective Progress Note for:: 08/06/16 Subjective:: Seen in the hospital today. Patient seems to be late in labored breathing and admits to some progressive worsening of his breathing difficulty. Patient denies any of chest pain no history of any coughing spells fever chills. His legs are still quite distended and swollen. Denies any history of fever or chills. IV Lasix for modified by me is in the morning and it was modified further by Dr. Hernandez/hospitalist because of decreasing urinary output. We again discussed the possibility of hemodialysis if these measures are not enough to relieve him of his heart failure. I am also going to increase his metolazone to10 twice daily. Physical Exam Vital Signs: Temp Pulse Resp BP Pulse Ox 97.5 F 111 H 24 H 144/73 H 90 L 08/06/16 15:23 08/06/16 15:23 08/06/16 15:23 08/06/16 15:23 08/06/16 15:23 Intake & Output 08/05/16 08/06/16 08/07/16 06:59 06:59 06:59 Intake Total 733 1884 358 Output Total 200 Balance 733 1684 358 Weight 124.3 kg 122.9 kg Cardiovascular exam: PRESENT: irregular rhythm, +S1, +S2 GI/Abdominal exam: PRESENT: distended, soft. ABSENT: firm, guarding, mass, tenderness Results Laboratory Results: 08/06/16 04:51 08/06/16 04:51 08/06/16 08/06/16 08/06/16 00:34 02: 04:51 WBC 7.6 7.6 RBC 3.36 L 3.21 L Hgb 8.8 L 8.5 L Hct 27.0 L 25.9 L MCV 80 81 MCH 26.1 L 26.5 L MCHC 32.5 32.8 RDW 19.7 H 19.7 H Plt Count 236 231 Seg Neutrophils % 81.8 H Lymphocytes % 10.3 L Monocytes % 7.5 Eosinophils % 0.3 Basophils % 0.1 Absolute Neutrophils 6.2 Absolute Lymphocytes 0.8 Absolute Monocytes 0.6 Absolute Eosinophils 0.0 Absolute Basophils 0.0 Retic Count (auto) 3.55 H Absolute Retic 0.114 Sodium Potassium Chloride Carbon Dioxide Anion Gap BUN Creatinine Est GFR ( Amer) Est GFR (Non-Af Amer) Glucose Calcium Phosphorus Iron TIBC % Saturation Transferrin Ferritin Vitamin B12 Folate Urine Color YELLOW Urine Appearance SLIGHTLY-CLOUDY Urine pH 5.0 Ur Specific Calhoun 1.011 Urine Protein 30 H Urine Glucose (UA) 50 H Urine Ketones NEGATIVE Urine Blood NEGATIVE Urine Nitrite NEGATIVE Ur Leukocyte Esterase NEGATIVE Urine WBC (Auto) 1 Urine RBC (Auto) 1 08/06/16 08/06/16 04:51 09:05 WBC RBC Hgb Hct MCV MCH MCHC RDW Plt Count Seg Neutrophils % Lymphocytes % Monocytes % Eosinophils % Basophils % Absolute Neutrophils Absolute Lymphocytes Absolute Monocytes Absolute Eosinophils Absolute Basophils Retic Count (auto) Absolute Retic Sodium 138.2 Potassium 4.9 Chloride 100 Carbon Dioxide 27 Anion Gap 11 BUN 39 H Creatinine 3.33 H Est GFR ( Amer) 22 L Est GFR (Non-Af Amer) 18 L Glucose 134 H Calcium 8.6 Phosphorus 5.2 H Iron 21 L TIBC 208 L % Saturation 10 Transferrin Cancelled Ferritin 222.00 Vitamin B12 890.0 Folate 14.80 Urine Color Urine Appearance Urine pH Ur Specific Calhoun Urine Protein Urine Glucose (UA) Urine Ketones Urine Blood Urine Nitrite Ur Leukocyte Esterase Urine WBC (Auto) Urine RBC (Auto) Impressions: Humerus X-Ray 08/04/16 00:00 IMPRESSION: NO SIGNIFICANT RADIOGRAPHIC ABNORMALITY. NO RADIOPAQUE FOREIGN BODY. Guidance Fluoroscopy 08/05/16 00:00 IMPRESSION: SUCCESSFUL PLACEMENT OF A 5 FR DUAL LUMEN 44 CM PICC IN THE left basilic VEIN. Interventional Vascular Procedure 08/05/16 00:00 IMPRESSION: SUCCESSFUL PLACEMENT OF A 5 FR DUAL LUMEN 44 CM PICC IN THE left basilic VEIN. PICC Line Insertion 08/05/16 00:00 IMPRESSION: SUCCESSFUL PLACEMENT OF A 5 FR DUAL LUMEN 44 CM PICC IN THE left basilic VEIN. Renal Ultrasound 08/05/16 00:00 IMPRESSION: No hydronephrosis. Increased echogenicity of the bilateral renal parenchyma, may be seen with medical renal disease. Chest X-Ray 08/05/16 06:30 IMPRESSION: Rehydration versus progressing sepsis or edema. Assessment & Plan - Diagnosis (1) Acute on chronic renal failure Is this a current diagnosis for this admission?: Yes (2) Anemia of chronic disease Is this a current diagnosis for this admission?: YesPlan: History of CKD induced anemia and also has got moderate iron deficiency. We will plan to infuse IV iron. Discussed the pros and cons of the infusion patient willing to proceed. (3) Atrial fibrillation Qualifiers: Atrial fibrillation type: chronic Qualified Code(s): I48.2 - Chronic atrial fibrillation Is this a current diagnosis for this admission?: Yes (4) Diastolic CHF Qualifiers: Congestive heart failure chronicity: chronic Qualified Code(s): I50.32 - Chronic diastolic (congestive) heart failure Is this a current diagnosis for this admission?: YesPlan: He is in a combination of left and right heart failure. See how he responds to the above measures. Patient has not been so compliant with the CPAP for his sleep apnea. He met probably be ending on dialysis if he is not responding to the current measures. (5) Fluid overload Qualifiers: Hypervolemia type: unspecified Qualified Code(s): E87.70 - Fluid overload, unspecified Is this a current diagnosis for this admission?: Yes (6) Hyperkalemia Is this a current diagnosis for this admission?: YesPlan: Stable. Monitor (8) Acute worsening of stage 3 chronic kidney disease Is this a current diagnosis for this admission?: YesPlan: Patient is still having worsening of his renal functions with the heart failure as an added on feature. Currently patient seems to be having decreasing urine output along with progression of his heart failure. We have adjusted his medications and and diuretics and will see how he responds. Is quite likely that he is going to end up on dialysis. We again discussed the procedure of dialysis including the placement of right IJ catheter. Patient willing to proceed if needs be. (9) Anemia due to acute blood loss Plan: Combination of CKD plus some blood loss from pulling out his catheter. We will infuse IV iron and monitor. We will also start him on erythropoietin. (11) Hypertension Qualifiers: Hypertension type: essential hypertension Qualified Code(s): I10 - Essential (primary) hypertension Is this a current diagnosis for this admission?: YesPlan: Monitor. (12) Morbid obesity Qualifiers: Obesity type: unspecified obesity type Qualified Code(s): E66.01 - Morbid (severe) obesity due to excess calories (13) Osteomyelitis of right foot Qualifiers: Qualified Code(s): M86.171 - Other acute osteomyelitis, right ankle and foot Is this a current diagnosis for this admission?: YesPlan: Patient on antibiotics for MRSA. The patient obviously looks like he has got lymphedema and venous stasis. Besides that being a diabetic vascular and hypertensive with CKD it is quite likely he has got vascular insult also which might mean that he has got difficulty in healing of his infections down below. Surgical monitoring is quite important. (14) Atrial fibrillation Qualifiers: Atrial fibrillation type: unspecified Qualified Code(s): I48.91 - Unspecified atrial fibrillation Is this a current diagnosis for this admission?: Yes (15) Obstructive sleep apnea Is this a current diagnosis for this admission?: YesPlan: He should be on C Pap. Obviously he has got features of cor pulmonale
[2016-08-06] MEDS ORDERED: HYDRALAZINE HCL INJ/PF 20 MG/1 ML SDV ONE (19:56)
[2016-08-06 20:03] LABS: ARTERIAL BLOOD BASE EXCESS 1.3 mmol/L; ARTERIAL BLOOD O2 SATURATION 95.8 % (94-98)
[2016-08-06 20:04] LABS: ABSOLUTE LYMPHOCYTES (AUTO) 1.2 10^3/uL (0.5-4.7); ABSOLUTE MONOCYTES (AUTO) 0.5 10^3/uL (0.1-1.4); ABSOLUTE NEUT (AUTO) 6.5 10^3/uL (1.7-8.2); BASOPHILS % (AUTO) 0.4 % (0-2); EOSINOPHILS % (AUTO) 0.3 % (0-6); HEMATOCRIT 26.7 % (37.9-51.0); HEMOGLOBIN 8.6 g/dL (13.5-17.0); HGB HCT DIFFERENCE -0.9; LYMPHOCYTES % (AUTO) 14.6 % (13-45); MEAN CORPUSCULAR HEMOGLOBIN 26.2 pg (27.0-33.4); MEAN CORPUSCULAR HGB CONC 32.4 g/dL (32.0-36.0); MEAN CORPUSCULAR VOLUME 81 fl (80-97); MONOCYTES % (AUTO) 5.6 % (3-13); RED CELL DISTRIBUTION WIDTH 19.3 % (11.5-14.0); SEGMENTED NEUTROPHILS % (AUTO) 79.1 % (42-78); WHITE BLOOD COUNT 8.2 10^3/uL (4.0-10.5)
[2016-08-06 20:29] LABS: ANION GAP 12 (5-19); BLOOD UREA NITROGEN 39 mg/dL (7-20); CALCIUM 8.7 mg/dL (8.4-10.2); CARBON DIOXIDE 28 mmol/L (22-30); CHLORIDE 96 mmol/L (98-107); GLUCOSE 242 mg/dL (75-110); POTASSIUM 4.6 mmol/L (3.6-5.0); SODIUM 135.8 mmol/L (137-145)
[2016-08-06] MEDS: METOPROLOL SUCCINATE 50 MG TAB.SR.24H PO SCH (21:28)
[2016-08-06] MEDS: INSULIN GLARGINE,HUM.REC.ANLOG 300 UNIT/3 ML INSULN.PEN SUBCUT SCH (21:29)
[2016-08-06] MEDS ORDERED: AMLODIPINE BESYLATE 5 MG TABLET PO ONE (23:45)
[2016-08-07] MEDS: INSULIN LISPRO 100 UNIT/ML 3 ML VIAL SUBCUT PRN (00:36)
[2016-08-07] MEDS: HYDRALAZINE HCL INJ/PF 20 MG/1 ML SDV IV PRN ×2 (02:24→18:23)
[2016-08-07] MEDS ORDERED: AMLODIPINE BESYLATE 5 MG TABLET PO ONE (04:30)
[2016-08-07] MEDS: HYDRALAZINE HCL 50 MG TABLET PO SCH ×3 (05:48→21:22)
[2016-08-07] MEDS: FUROSEMIDE INJ/PF 100 MG/10 ML SDV IV SCH ×2 (05:49→17:26)
[2016-08-07 06:39] LABS: ANION GAP 9 (5-19); BLOOD UREA NITROGEN 38 mg/dL (7-20); CALCIUM 8.8 mg/dL (8.4-10.2); CARBON DIOXIDE 31 mmol/L (22-30); CHLORIDE 99 mmol/L (98-107); CREATININE RESULT 2.97 mg/dL (0.52-1.25); GLUCOSE 67 mg/dL (75-110); POTASSIUM 4.4 mmol/L (3.6-5.0); SODIUM 138.9 mmol/L (137-145)
[2016-08-07 08:36] LABS: TRANSFERRIN 164 mg/dL (200-370)
[2016-08-07] MEDS ORDERED: FERUMOXYTOL 510 MG in NORMAL SALINE 100 ML IV ONE (09:00)
[2016-08-07] MEDS ORDERED: INSULIN GLARGINE,HUM.REC.ANLOG 300 UNIT/3 ML INSULN.PEN SUBCUT SCH (09:07)
--- NOTE | 2016-08-07 09:17 | PDOC PROGRESS REPORT ---
Subjective Progress Note for:: 08/07/16 Subjective:: Patient is breathing better. Last night the patient developed confusion and alteration in mental status, reportedly he was sundowning. Blood pressure was noted to be elevated and was given Norvasc. Patient without any hypoxia reported. Patient was brought back to bed and was placed on BiPAP. This morning he is more awake and responsive. Patient somehow does not remember what happened. Patient has some mild wheezing. Likewise on chemistry his blood sugar is low. Chest x-ray shows significant improvement in congestion. Physical Exam Vital Signs: Temp Pulse Resp BP Pulse Ox 98.2 F 59 L 25 H 139/54 H 95 08/07/16 07:40 08/07/16 07:53 08/07/16 07:53 08/07/16 07:40 08/07/16 07:53 Intake & Output 08/06/16 08/07/16 08/08/16 06:59 06:59 06:59 Intake Total 1884 1358 Output Total 200 Balance 1684 1358 Weight 122.9 kg General appearance: PRESENT: no acute distress, cooperative, morbidly obese, other - On BiPAP Head exam: PRESENT: normocephalic Eye exam: PRESENT: conjunctiva pale, EOMI Mouth exam: PRESENT: moist, neck supple Neck exam: ABSENT: JVD Respiratory exam: PRESENT: unlabored, wheezes - Mild bilateral Cardiovascular exam: PRESENT: irregular rhythm. ABSENT: gallop GI/Abdominal exam: PRESENT: distended - Obese, soft, other - Slight tympany to percussion. ABSENT: tenderness Extremities exam: PRESENT: other - Lower extremity edema decreased. Skin is dry with multiple scaling bilaterally. Foot dressing on the right is clean. Neurological exam: PRESENT: alert, awake, other - Appropriately responds to questions Skin exam: PRESENT: dry, warm. ABSENT: cyanosis Results Laboratory Results: 08/06/16 19:50 08/07/16 05:59 08/06/16 08/06/16 08/06/16 05:49 09:05 19:47 WBC RBC Hgb Hct MCV MCH MCHC RDW Plt Count Seg Neutrophils % Lymphocytes % Monocytes % Eosinophils % Basophils % Absolute Neutrophils Absolute Lymphocytes Absolute Monocytes Absolute Eosinophils Absolute Basophils Carbonic Acid 1.33 HCO3/H2CO3 Ratio 19:1 ABG pH 7.39 ABG pCO2 44.3 ABG pO2 80.5 ABG HCO3 26.5 H ABG O2 Saturation 95.8 ABG Base Excess 1.3 FiO2 100% Sodium Potassium Chloride Carbon Dioxide Anion Gap BUN Creatinine Est GFR ( Amer) Est GFR (Non-Af Amer) Glucose Calcium Transferrin 164 L Cancelled 08/06/16 08/06/16 08/07/16 19:50 19:50 05:59 WBC 8.2 RBC 3.30 L Hgb 8.6 L Hct 26.7 L MCV 81 MCH 26.2 L MCHC 32.4 RDW 19.3 H Plt Count 219 Seg Neutrophils % 79.1 H Lymphocytes % 14.6 Monocytes % 5.6 Eosinophils % 0.3 Basophils % 0.4 Absolute Neutrophils 6.5 Absolute Lymphocytes 1.2 Absolute Monocytes 0.5 Absolute Eosinophils 0.0 Absolute Basophils 0.0 Carbonic Acid HCO3/H2CO3 Ratio ABG pH ABG pCO2 ABG pO2 ABG HCO3 ABG O2 Saturation ABG Base Excess FiO2 Sodium 135.8 L 138.9 Potassium 4.6 4.4 Chloride 96 L 99 Carbon Dioxide 28 31 H Anion Gap 12 9 BUN 39 H 38 H Creatinine 3.20 H 2.97 H Est GFR ( Amer) 23 L 25 L Est GFR (Non-Af Amer) 19 L 21 L Glucose 242 H 67 L Calcium 8.7 8.8 Transferrin Impressions: Humerus X-Ray 08/04/16 00:00 IMPRESSION: NO SIGNIFICANT RADIOGRAPHIC ABNORMALITY. NO RADIOPAQUE FOREIGN BODY. Guidance Fluoroscopy 08/05/16 00:00 IMPRESSION: SUCCESSFUL PLACEMENT OF A 5 FR DUAL LUMEN 44 CM PICC IN THE left basilic VEIN. Interventional Vascular Procedure 08/05/16 00:00 IMPRESSION: SUCCESSFUL PLACEMENT OF A 5 FR DUAL LUMEN 44 CM PICC IN THE left basilic VEIN. PICC Line Insertion 08/05/16 00:00 IMPRESSION: SUCCESSFUL PLACEMENT OF A 5 FR DUAL LUMEN 44 CM PICC IN THE left basilic VEIN. Renal Ultrasound 08/05/16 00:00 IMPRESSION: No hydronephrosis. Increased echogenicity of the bilateral renal parenchyma, may be seen with medical renal disease. Chest X-Ray 08/07/16 06:00 IMPRESSION: Significant improvement both lungs particular on the left with considerable residual opacity bilaterally. Tip of the left PICC line is now at or near the junction of the right internal jugular and right subclavian veins. Assessment & Plan - Diagnosis (1) Fluid overload Qualifiers: Hypervolemia type: unspecified Qualified Code(s): E87.70 - Fluid overload, unspecified Is this a current diagnosis for this admission?: Yes (2) Diastolic CHF Qualifiers: Congestive heart failure chronicity: chronic Qualified Code(s): I50.32 - Chronic diastolic (congestive) heart failure Is this a current diagnosis for this admission?: Yes (3) Acute on chronic renal failure Is this a current diagnosis for this admission?: Yes (4) Anemia of chronic disease Is this a current diagnosis for this admission?: Yes (5) Osteomyelitis of right foot Qualifiers: Qualified Code(s): M86.171 - Other acute osteomyelitis, right ankle and foot Is this a current diagnosis for this admission?: Yes (6) Hyperlipidemia Qualifiers: Hyperlipidemia type: unspecified Qualified Code(s): E78.5 - Hyperlipidemia, unspecified Is this a current diagnosis for this admission?: Yes (7) Hypertension Qualifiers: Hypertension type: essential hypertension Qualified Code(s): I10 - Essential (primary) hypertension Is this a current diagnosis for this admission?: Yes (8) COPD (chronic obstructive pulmonary disease) Qualifiers: COPD type: unspecified COPD Qualified Code(s): J44.9 - Chronic obstructive pulmonary disease, unspecified Is this a current diagnosis for this admission?: Yes (9) Diabetes mellitus type 2 in obese Is this a current diagnosis for this admission?: Yes (10) Atrial fibrillation Qualifiers: Atrial fibrillation type: chronic Qualified Code(s): I48.2 - Chronic atrial fibrillation Is this a current diagnosis for this admission?: Yes (11) Obstructive sleep apnea Is this a current diagnosis for this admission?: Yes - Time Time Spent with patient: 25-34 minutes - Plan Summary Plan Summary: We will continue ventilatory support for now and wean it. Begin intravenous steroids. Possible COPD exacerbation. We will give scheduled bronchodilator treatment. I will discontinue the patient's glipizide and decrease the basal insulin dose due to hypoglycemia. Continue current diuretics, as chest x-ray improving and creatinine continues to improve. We will continue supportive care. Continue antibiotics for the osteomyelitis.
[2016-08-07 09:50] LABS: PTH INTACT 65 pg/mL (15-65)
[2016-08-07] MEDS: ERTAPENEM SODIUM 0.5 GM in NORMAL SALINE 50 ML IV SCH (10:02)
[2016-08-07] MEDS: NORMAL SALINE 10 ML SDV (SCHEDULED) IV SCH ×2 (10:03→21:24)
[2016-08-07] MEDS: POLYETHYLENE GLYCOL 3350 POWDER 17 GM/1 PACKET PO SCH (10:05)
[2016-08-07] MEDS: DOCUSATE SODIUM 100 MG CAPSULE PO SCH ×2 (10:07→17:28)
[2016-08-07] MEDS: METOLAZONE 5 MG TABLET PO SCH ×2 (10:07→21:22)
[2016-08-07] MEDS: APIXABAN 5 MG TABLET PO SCH ×2 (10:08→21:20)
[2016-08-07] MEDS: FOLIC ACID/VITAMIN B COMP W-C CAPSULE PO SCH (10:08)
[2016-08-07] MEDS: ISOSORBIDE MONONITRATE 30 MG TAB.ER.24H PO SCH (10:10)
[2016-08-07] MEDS: LINEZOLID 600 MG RTU 300 ML IV SCH ×2 (10:10→21:25)
[2016-08-07] MEDS: ASPIRIN 325 MG TABLET, ENT COATED PO SCH (10:10)
[2016-08-07] MEDS ORDERED: METHYLPREDNISOLONE INJ 40 MG/1 ML SDV IV SCH (14:00)
[2016-08-07] MEDS: IPRATROPIUM/ALBUTEROL 0.5-2.5 MG/3 ML AMPUL NEB SCH ×2 (14:01→20:37)
[2016-08-07] MEDS: METHYLPREDNISOLONE INJ 125 MG/2 ML SDV IV SCH ×2 (14:56→21:23)
[2016-08-07 16:39] LABS: A/G RATIO 0.6 (0.7-1.7); ALBUMIN 2 2.7 g/dL (2.9-4.4); ALPHA-1-GLOBULIN 2 0.4 g/dL (0.0-0.4); GAMMA GLOBULIN 1.7 g/dL (0.4-1.8); PROTEIN TOTAL SERUM 6.9 g/dL (6.0-8.5)
--- NOTE | 2016-08-07 17:01 | PDOC PROGRESS REPORT ---
Subjective Progress Note for:: 08/07/16 Subjective:: Patient was seen this morning. Discussed this case with the treating nurse Porsche. Patient had some altered mental status last night and was found to be confused. Even though he was not desaturating he had BiPAP put on him and he is doing well this morning. This morning he is got the BiPAP on but feels much better. He says his breathing is much better. He is awake and oriented 3. Patient has had not much urine output but he says he feels the urge. No history of any fever chills no history of any chest pain. Medications were reviewed. Physical Exam Vital Signs: Temp Pulse Resp BP Pulse Ox 98.7 F 57 L 29 H 164/65 H 94 08/07/16 15:28 08/07/16 15:28 08/07/16 16:49 08/07/16 16:02 08/07/16 16:49 Intake & Output 08/06/16 08/07/16 08/08/16 06:59 06:59 06:59 Intake Total 1884 1358 75 Output Total 200 1400 Balance 1684 1358 -1325 Weight 122.9 kg General appearance: PRESENT: mild distress - He is on BiPAP but comfortable. Respiratory exam: PRESENT: clear to auscultation cornell, rales - Few basilar crackles was heard., rhonchi - Few scattered were heard.. ABSENT: stridor Cardiovascular exam: PRESENT: irregular rhythm, +S1, +S2 GI/Abdominal exam: PRESENT: distended, soft. ABSENT: firm, guarding, mass, tenderness Extremities exam: PRESENT: +2 edema Neurological exam: PRESENT: awake, oriented to person, oriented to place, oriented to time. ABSENT: aphasic Psychiatric exam: PRESENT: flat affect. ABSENT: agitated Skin exam: PRESENT: rash - On both lower extremities with venous stasis changes.. ABSENT: erythema Results Laboratory Results: 08/06/16 19:50 08/07/16 05:59 08/06/16 08/06/16 08/06/16 05:49 19:47 19:50 WBC 8.2 RBC 3.30 L Hgb 8.6 L Hct 26.7 L MCV 81 MCH 26.2 L MCHC 32.4 RDW 19.3 H Plt Count 219 Seg Neutrophils % 79.1 H Lymphocytes % 14.6 Monocytes % 5.6 Eosinophils % 0.3 Basophils % 0.4 Absolute Neutrophils 6.5 Absolute Lymphocytes 1.2 Absolute Monocytes 0.5 Absolute Eosinophils 0.0 Absolute Basophils 0.0 Carbonic Acid 1.33 HCO3/H2CO3 Ratio 19:1 ABG pH 7.39 ABG pCO2 44.3 ABG pO2 80.5 ABG HCO3 26.5 H ABG O2 Saturation 95.8 ABG Base Excess 1.3 FiO2 100% Sodium Potassium Chloride Carbon Dioxide Anion Gap BUN Creatinine Est GFR ( Amer) Est GFR (Non-Af Amer) Glucose Calcium Transferrin 164 L PTH Intact 65 08/06/16 08/07/16 19:50 05:59 WBC RBC Hgb Hct MCV MCH MCHC RDW Plt Count Seg Neutrophils % Lymphocytes % Monocytes % Eosinophils % Basophils % Absolute Neutrophils Absolute Lymphocytes Absolute Monocytes Absolute Eosinophils Absolute Basophils Carbonic Acid HCO3/H2CO3 Ratio ABG pH ABG pCO2 ABG pO2 ABG HCO3 ABG O2 Saturation ABG Base Excess FiO2 Sodium 135.8 L 138.9 Potassium 4.6 4.4 Chloride 96 L 99 Carbon Dioxide 28 31 H Anion Gap 12 9 BUN 39 H 38 H Creatinine 3.20 H 2.97 H Est GFR ( Amer) 23 L 25 L Est GFR (Non-Af Amer) 19 L 21 L Glucose 242 H 67 L Calcium 8.7 8.8 Transferrin PTH Intact Impressions: Humerus X-Ray 08/04/16 00:00 IMPRESSION: NO SIGNIFICANT RADIOGRAPHIC ABNORMALITY. NO RADIOPAQUE FOREIGN BODY. Guidance Fluoroscopy 08/05/16 00:00 IMPRESSION: SUCCESSFUL PLACEMENT OF A 5 FR DUAL LUMEN 44 CM PICC IN THE left basilic VEIN. Interventional Vascular Procedure 08/05/16 00:00 IMPRESSION: SUCCESSFUL PLACEMENT OF A 5 FR DUAL LUMEN 44 CM PICC IN THE left basilic VEIN. PICC Line Insertion 08/05/16 00:00 IMPRESSION: SUCCESSFUL PLACEMENT OF A 5 FR DUAL LUMEN 44 CM PICC IN THE left basilic VEIN. Renal Ultrasound 08/05/16 00:00 IMPRESSION: No hydronephrosis. Increased echogenicity of the bilateral renal parenchyma, may be seen with medical renal disease. Chest X-Ray 08/07/16 06:00 IMPRESSION: Significant improvement both lungs particular on the left with considerable residual opacity bilaterally. Tip of the left PICC line is now at or near the junction of the right internal jugular and right subclavian veins. Assessment & Plan - Diagnosis (1) Acute on chronic renal failure Is this a current diagnosis for this admission?: YesPlan: His renal numbers are better but he is not making much of urine output. I wonder if he has got some evidences of prostatic hypertrophy. Discussed with the patient and will introduce a Daniels catheter and see the response. No evidence as to start him on dialysis in the moment especially if his urine output is better. Will follow up on the chest x-ray ordered this morning. He seems to have improved his breathing. Heart failure seems improving and maybe he has an element of COPD. (2) Anemia of chronic disease Is this a current diagnosis for this admission?: YesPlan: He also had moderate iron deficiency for which 1 dose of IV Feraheme was ordered this morning. See response and if later on will need to start him on erythropoietin. (3) Atrial fibrillation Qualifiers: Atrial fibrillation type: chronic Qualified Code(s): I48.2 - Chronic atrial fibrillation Is this a current diagnosis for this admission?: YesPlan: Rate controlled (4) Diastolic CHF Qualifiers: Congestive heart failure chronicity: chronic Qualified Code(s): I50.32 - Chronic diastolic (congestive) heart failure Is this a current diagnosis for this admission?: YesPlan: Patient is a combination of diastolic left heart failure along with the right heart failure. Patient seems to be responding to current medications including enhanced doses of diuretics. Hopefully will be able to get off without the need to be on dialysis. (5) Fluid overload Qualifiers: Hypervolemia type: unspecified Qualified Code(s): E87.70 - Fluid overload, unspecified Is this a current diagnosis for this admission?: Yes (6) Hyperkalemia Is this a current diagnosis for this admission?: YesPlan: Stable. Monitor (7) Acute worsening of stage 3 chronic kidney disease Is this a current diagnosis for this admission?: Yes (8) Acute on chronic diastolic congestive heart failure Plan: As mentioned earlier. See response to current diuretic regimen. (9) Anemia due to acute blood loss Plan: Is got IV iron. Stable numbers and will monitor. (10) History of MRSA infection Plan: With osteomyelitis. Patient on on appropriate antibiotics. Will monitor response. (11) Hypertension Qualifiers: Hypertension type: essential hypertension Qualified Code(s): I10 - Essential (primary) hypertension Is this a current diagnosis for this admission?: YesPlan: Monitor. (12) Morbid obesity Qualifiers: Obesity type: unspecified obesity type Qualified Code(s): E66.01 - Morbid (severe) obesity due to excess calories (13) Osteomyelitis of right foot Qualifiers: Qualified Code(s): M86.171 - Other acute osteomyelitis, right ankle and foot Is this a current diagnosis for this admission?: YesPlan: Patient on antibiotics for MRSA. See the clinical response to the antibiotics and as well as the renal response to them. . (14) Atrial fibrillation Qualifiers: Atrial fibrillation type: unspecified Qualified Code(s): I48.91 - Unspecified atrial fibrillation Is this a current diagnosis for this admission?: Yes (15) Obstructive sleep apnea Is this a current diagnosis for this admission?: YesPlan: Recommend that he be put on BiPAP every night so that he does not have further altered mental status and secondary to possible CO2 narcosis and such.
[2016-08-07] MEDS: METOPROLOL SUCCINATE 50 MG TAB.SR.24H PO SCH (21:23)
[2016-08-07] MEDS: INSULIN GLARGINE,HUM.REC.ANLOG 300 UNIT/3 ML INSULN.PEN SUBCUT SCH (23:23)
[2016-08-08] MEDS: HYDRALAZINE HCL INJ/PF 20 MG/1 ML SDV IV PRN ×2 (01:15→15:18)
[2016-08-08] MEDS: IPRATROPIUM/ALBUTEROL 0.5-2.5 MG/3 ML AMPUL NEB SCH ×4 (02:11→20:00)
[2016-08-08] MEDS: FUROSEMIDE INJ/PF 100 MG/10 ML SDV IV SCH ×2 (05:59→18:18)
[2016-08-08] MEDS: METHYLPREDNISOLONE INJ 125 MG/2 ML SDV IV SCH (06:00)
[2016-08-08] MEDS: HYDRALAZINE HCL 50 MG TABLET PO SCH ×3 (06:00→22:37)
[2016-08-08 06:47] LABS: ANION GAP 10 (5-19); BLOOD UREA NITROGEN 37 mg/dL (7-20); CALCIUM 8.7 mg/dL (8.4-10.2); CARBON DIOXIDE 30 mmol/L (22-30); CHLORIDE 96 mmol/L (98-107); GLUCOSE 158 mg/dL (75-110); POTASSIUM 4.9 mmol/L (3.6-5.0); SODIUM 136.1 mmol/L (137-145)
[2016-08-08] MEDS ORDERED: METHYLPREDNISOLONE INJ 125 MG/2 ML SDV IV SCH (07:41)
[2016-08-08 09:08] LABS: ABSOLUTE LYMPHOCYTES (AUTO) 0.4 10^3/uL (0.5-4.7); ABSOLUTE MONOCYTES (AUTO) 0.1 10^3/uL (0.1-1.4); ABSOLUTE NEUT (AUTO) 4.8 10^3/uL (1.7-8.2); BASOPHILS % (AUTO) 0.4 % (0-2); EOSINOPHILS % (AUTO) 0.1 % (0-6); HEMATOCRIT 27.3 % (37.9-51.0); HEMOGLOBIN 8.9 g/dL (13.5-17.0); HGB HCT DIFFERENCE -0.6; LYMPHOCYTES % (AUTO) 7.3 % (13-45); MEAN CORPUSCULAR HEMOGLOBIN 26.2 pg (27.0-33.4); MEAN CORPUSCULAR HGB CONC 32.4 g/dL (32.0-36.0); MEAN CORPUSCULAR VOLUME 81 fl (80-97); MONOCYTES % (AUTO) 1.8 % (3-13); RED BLOOD COUNT 3.39 10^6/uL (4.35-5.55); RED CELL DISTRIBUTION WIDTH 19.5 % (11.5-14.0); SEGMENTED NEUTROPHILS % (AUTO) 90.4 % (42-78); WHITE BLOOD COUNT 5.3 10^3/uL (4.0-10.5)
[2016-08-08] MEDS: APIXABAN 5 MG TABLET PO SCH ×2 (10:00→22:37)
[2016-08-08] MEDS ORDERED: PHARMACY COMMUNICATION ORDER MC NR ×2 (10:45→23:30)
[2016-08-08] MEDS ORDERED: TIOTROPIUM BROMIDE DPI 5 CAP/KIT (18 MCG/CAP) IH SCH (12:00)
[2016-08-08] MEDS: ERTAPENEM SODIUM 0.5 GM in NORMAL SALINE 50 ML IV SCH (12:13)
[2016-08-08] MEDS: METOLAZONE 5 MG TABLET PO SCH ×2 (12:14→22:35)
[2016-08-08] MEDS: LINEZOLID 600 MG TABLET PO SCH ×2 (12:14→22:38)
[2016-08-08] MEDS: FOLIC ACID/VITAMIN B COMP W-C CAPSULE PO SCH (12:14)
[2016-08-08] MEDS: ASPIRIN 325 MG TABLET, ENT COATED PO SCH (12:14)
[2016-08-08] MEDS: ISOSORBIDE MONONITRATE 30 MG TAB.ER.24H PO SCH (12:14)
[2016-08-08] MEDS: NITROGLYCERIN 2% OINTMENT 1 GM PACKET TP SCH ×3 (12:16→23:15)
[2016-08-08] MEDS: DOCUSATE SODIUM 100 MG CAPSULE PO SCH ×2 (12:32→18:22)
[2016-08-08] MEDS: POLYETHYLENE GLYCOL 3350 POWDER 17 GM/1 PACKET PO SCH (12:32)
[2016-08-08] MEDS: METHYLPREDNISOLONE INJ 40 MG/1 ML SDV IV SCH ×2 (15:17→22:38)
[2016-08-08] MEDS: NORMAL SALINE 10 ML SDV (SCHEDULED) IV SCH ×2 (15:18→22:39)
[2016-08-08] MEDS: INSULIN LISPRO 100 UNIT/ML 3 ML VIAL SUBCUT PRN ×2 (18:43→23:16)
--- NOTE | 2016-08-08 18:56 | PDOC PROGRESS REPORT ---
Subjective Progress Note for:: 08/08/16 Subjective:: Good urine output after placement of olvera catheter.Generally feeling better with some improvement in his dyspnea. Also has noticed some decrease in swelling of legs.No fever or chills. Physical Exam Vital Signs: Temp Pulse Resp BP Pulse Ox 98.6 F 70 19 151/65 H 96 08/08/16 15:48 08/08/16 15:48 08/08/16 15:48 08/08/16 15:48 08/08/16 15:48 Intake & Output 08/07/16 08/08/16 08/09/16 06:59 06:59 06:59 Intake Total 1358 1590 627 Output Total 3950 800 Balance 3838 -7080 -108 Weight 120.1 kg General appearance: PRESENT: mild distress Respiratory exam: PRESENT: clear to auscultation cornell, crackles, tachypnea. ABSENT: rhonchi, unlabored Cardiovascular exam: PRESENT: irregular rhythm, +S1, +S2 GI/Abdominal exam: PRESENT: distended, soft. ABSENT: firm, guarding, mass, tenderness Extremities exam: PRESENT: +2 edema Neurological exam: PRESENT: oriented to person, oriented to place, oriented to time Psychiatric exam: PRESENT: appropriate affect Skin exam: PRESENT: mottled Results Laboratory Results: 08/08/16 08:58 08/08/16 06:10 08/06/16 08/08/16 08/08/16 05:49 06:10 08:58 WBC 5.3 RBC 3.39 L Hgb 8.9 L Hct 27.3 L MCV 81 MCH 26.2 L MCHC 32.4 RDW 19.5 H Plt Count 240 Seg Neutrophils % 90.4 H Lymphocytes % 7.3 L Monocytes % 1.8 L Eosinophils % 0.1 Basophils % 0.4 Absolute Neutrophils 4.8 Absolute Lymphocytes 0.4 L Absolute Monocytes 0.1 Absolute Eosinophils 0.0 Absolute Basophils 0.0 Sodium 136.1 L Potassium 4.9 Chloride 96 L Carbon Dioxide 30 Anion Gap 10 BUN 37 H Creatinine 2.90 H Est GFR ( Amer) 26 L Est GFR (Non-Af Amer) 21 L Glucose 158 H Calcium 8.7 Transferrin 164 L Total Protein 6.9 Albumin 2.7 L PTH Intact 65 Impressions: Humerus X-Ray 08/04/16 00:00 IMPRESSION: NO SIGNIFICANT RADIOGRAPHIC ABNORMALITY. NO RADIOPAQUE FOREIGN BODY. Guidance Fluoroscopy 08/05/16 00:00 IMPRESSION: SUCCESSFUL PLACEMENT OF A 5 FR DUAL LUMEN 44 CM PICC IN THE left basilic VEIN. Interventional Vascular Procedure 08/05/16 00:00 IMPRESSION: SUCCESSFUL PLACEMENT OF A 5 FR DUAL LUMEN 44 CM PICC IN THE left basilic VEIN. PICC Line Insertion 08/05/16 00:00 IMPRESSION: SUCCESSFUL PLACEMENT OF A 5 FR DUAL LUMEN 44 CM PICC IN THE left basilic VEIN. Renal Ultrasound 08/05/16 00:00 IMPRESSION: No hydronephrosis. Increased echogenicity of the bilateral renal parenchyma, may be seen with medical renal disease. Chest X-Ray 08/07/16 06:00 IMPRESSION: Significant improvement both lungs particular on the left with considerable residual opacity bilaterally. Tip of the left PICC line is now at or near the junction of the right internal jugular and right subclavian veins. Assessment & Plan - Diagnosis (1) Acute on chronic renal failure Is this a current diagnosis for this admission?: YesPlan: some better. non oliguric.continue same (2) Anemia of chronic disease Is this a current diagnosis for this admission?: YesPlan: stable.S/P IV Iron.Start Procrit now. (3) Atrial fibrillation Qualifiers: Atrial fibrillation type: chronic Qualified Code(s): I48.2 - Chronic atrial fibrillation Is this a current diagnosis for this admission?: Yes (4) Diastolic CHF Qualifiers: Congestive heart failure chronicity: chronic Qualified Code(s): I50.32 - Chronic diastolic (congestive) heart failure Is this a current diagnosis for this admission?: Yes (5) Fluid overload Qualifiers: Hypervolemia type: unspecified Qualified Code(s): E87.70 - Fluid overload, unspecified Is this a current diagnosis for this admission?: Yes (6) Hyperkalemia Is this a current diagnosis for this admission?: Yes (7) Acute worsening of stage 3 chronic kidney disease Is this a current diagnosis for this admission?: Yes (8) Acute on chronic diastolic congestive heart failure Plan: improving. Better response to current diuretic regimen.no indications for dialysis. (11) Hypertension Qualifiers: Hypertension type: essential hypertension Qualified Code(s): I10 - Essential (primary) hypertension Is this a current diagnosis for this admission?: Yes (12) Morbid obesity Qualifiers: Obesity type: unspecified obesity type Qualified Code(s): E66.01 - Morbid (severe) obesity due to excess calories (13) Osteomyelitis of right foot Qualifiers: Qualified Code(s): M86.171 - Other acute osteomyelitis, right ankle and foot Is this a current diagnosis for this admission?: YesPlan: Patient on antibiotics for MRSA. See the clinical response to the antibiotics and as well as the renal response to them. . (14) Atrial fibrillation Qualifiers: Atrial fibrillation type: unspecified Qualified Code(s): I48.91 - Unspecified atrial fibrillation Is this a current diagnosis for this admission?: Yes (15) Obstructive sleep apnea Is this a current diagnosis for this admission?: YesPlan: Recommend that he be put on BiPAP every night so that he does not have further altered mental status and secondary to possible CO2 narcosis and such.
[2016-08-08] MEDS ORDERED: EPOETIN ALFA INJ 20000 UNIT/1 ML VIAL (RENAL) SUBCUT SCH (22:00)
[2016-08-08] MEDS: METOPROLOL SUCCINATE 50 MG TAB.SR.24H PO SCH (22:37)
[2016-08-08] MEDS: SENNOSIDES/DOCUSATE 8.6-50 MG 1 EACH TABLET PO SCH (22:39)
[2016-08-08] MEDS: INSULIN GLARGINE,HUM.REC.ANLOG 300 UNIT/3 ML INSULN.PEN SUBCUT SCH (23:16)
--- NOTE | 2016-08-09 00:25 | PDOC PROGRESS REPORT ---
Subjective Progress Note for:: 08/08/16 Subjective:: Patient is seen this morning and is currently on BiPAP. He reports he feels better wearing BiPAP. Patient denies chest pain, abdominal pain, nausea, vomiting, fevers, chills, diarrhea, constipation, headache, new onset weakness. Physical Exam Vital Signs: Temp Pulse Resp BP Pulse Ox 99.7 F 64 28 H 164/59 H 94 08/08/16 00:00 08/08/16 02:11 08/08/16 05:19 08/08/16 00:00 08/08/16 05:19 Intake & Output 08/07/16 08/08/16 08/09/16 06:59 06:59 06:59 Intake Total 1358 1200 Output Total 3200 Balance 1358 -2000 Exam: General: Awake alert and oriented x3, mild to moderate respiratory distress HEENT: AT/NC, PERRL, EOMI, oropharynx is moist, pink, no scleral icterus, no conjunctival injection Neck: +JVD, trachea midline Chest: Bilateral bibasilar rales, tachypnea, no retractions, CV: IRR, normal S1 and S2, no rub or gallop Abdomen: Soft, nontender to palpation, mildly distended, active bowel sounds; no rebound, rigidity, or guarding Extremities: No cyanosis, clubbing; 2+edema Neuro: Cranial nerves II through XII are grossly intact without focal deficits; awake alert and oriented x3 Psych: Normal mood and affect Results Laboratory Results: 08/06/16 19:50 08/08/16 06:10 08/06/16 08/08/16 05:49 06:10 Sodium 136.1 L Potassium 4.9 Chloride 96 L Carbon Dioxide 30 Anion Gap 10 BUN 37 H Creatinine 2.90 H Est GFR ( Amer) 26 L Est GFR (Non-Af Amer) 21 L Glucose 158 H Calcium 8.7 Transferrin 164 L PTH Intact 65 Impressions: Humerus X-Ray 08/04/16 00:00 IMPRESSION: NO SIGNIFICANT RADIOGRAPHIC ABNORMALITY. NO RADIOPAQUE FOREIGN BODY. Guidance Fluoroscopy 08/05/16 00:00 IMPRESSION: SUCCESSFUL PLACEMENT OF A 5 FR DUAL LUMEN 44 CM PICC IN THE left basilic VEIN. Interventional Vascular Procedure 08/05/16 00:00 IMPRESSION: SUCCESSFUL PLACEMENT OF A 5 FR DUAL LUMEN 44 CM PICC IN THE left basilic VEIN. PICC Line Insertion 08/05/16 00:00 IMPRESSION: SUCCESSFUL PLACEMENT OF A 5 FR DUAL LUMEN 44 CM PICC IN THE left basilic VEIN. Renal Ultrasound 08/05/16 00:00 IMPRESSION: No hydronephrosis. Increased echogenicity of the bilateral renal parenchyma, may be seen with medical renal disease. Chest X-Ray 08/07/16 06:00 IMPRESSION: Significant improvement both lungs particular on the left with considerable residual opacity bilaterally. Tip of the left PICC line is now at or near the junction of the right internal jugular and right subclavian veins. Assessment & Plan - Diagnosis (1) Acute on chronic diastolic (congestive) heart failure Is this a current diagnosis for this admission?: YesPlan: Patient has grade 3 diastolic congestive heart failure. No David/ARB secondary to renal failure. Preserved EF. Also with pulmonary hypertension. Patient on metoprolol, Lasix, Eliquis, Imdur, and have added Nitropaste. (2) Acute on chronic renal failure Is this a current diagnosis for this admission?: YesPlan: Appreciate nephrology input (3) Anemia of chronic disease Is this a current diagnosis for this admission?: YesPlan: Patient receiving Procrit every 7 days (4) Atrial fibrillation Qualifiers: Atrial fibrillation type: chronic Qualified Code(s): I48.2 - Chronic atrial fibrillation Is this a current diagnosis for this admission?: Yes (5) Acute worsening of stage 3 chronic kidney disease Is this a current diagnosis for this admission?: Yes (6) BPH (benign prostatic hyperplasia) Qualifiers: Prostatic enlargement morphology: unspecified morphology Lower urinary tract symptom presence: symptoms present Qualified Code(s): N40.1 - Benign prostatic hyperplasia with lower urinary tract symptoms Is this a current diagnosis for this admission?: YesPlan: Continue use Daniels catheter as needed (7) Hyperlipidemia Qualifiers: Hyperlipidemia type: unspecified Qualified Code(s): E78.5 - Hyperlipidemia, unspecified Is this a current diagnosis for this admission?: Yes (8) Hypertensive urgency Is this a current diagnosis for this admission?: YesPlan: Have given Nitropaste. 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 Is this a current diagnosis for this admission?: Yes (11) Osteomyelitis of right foot Qualifiers: Qualified Code(s): M86.171 - Other acute osteomyelitis, right ankle and foot Is this a current diagnosis for this admission?: YesPlan: Continue antibiotics (12) Prostate cancer Is this a current diagnosis for this admission?: Yes (13) Type 2 diabetes mellitus with hyperglycemia Qualifiers: Diabetes mellitus terminal press operator insulin use: unspecified skilled nursing insulin use status Qualified Code(s): E11.65 - Type 2 diabetes mellitus with hyperglycemia Is this a current diagnosis for this admission?: Yes (14) Vitamin D deficiency Is this a current diagnosis for this admission?: Yes (15) Anticoagulated Is this a current diagnosis for this admission?: Yes (16) Atrial fibrillation Qualifiers: Atrial fibrillation type: unspecified Qualified Code(s): I48.91 - Unspecified atrial fibrillation Is this a current diagnosis for this admission?: Yes (17) COPD (chronic obstructive pulmonary disease) Qualifiers: COPD type: unspecified COPD Qualified Code(s): J44.9 - Chronic obstructive pulmonary disease, unspecified Is this a current diagnosis for this admission?: YesPlan: Decrease IV steroids. Feel these are contributing to volume overload. (18) Diabetes mellitus type 2 in obese Is this a current diagnosis for this admission?: Yes (19) Obstructive sleep apnea Is this a current diagnosis for this admission?: YesPlan: Continue BiPAP as needed. Patient reports that he's had positive sleep study in the past. - Time Time Spent with patient: 25-34 minutes Medications reviewed and adjusted accordingly: Yes
[2016-08-09] MEDS: IPRATROPIUM/ALBUTEROL 0.5-2.5 MG/3 ML AMPUL NEB SCH ×3 (02:28→13:57)
[2016-08-09] MEDS: HYDRALAZINE HCL 50 MG TABLET PO SCH ×3 (07:12→22:28)
[2016-08-09] MEDS: FUROSEMIDE INJ/PF 100 MG/10 ML SDV IV SCH ×2 (07:12→17:31)
[2016-08-09] MEDS: NITROGLYCERIN 2% OINTMENT 1 GM PACKET TP SCH ×2 (07:13→12:00)
[2016-08-09] MEDS: METHYLPREDNISOLONE INJ 40 MG/1 ML SDV IV SCH ×2 (07:13→14:00)
[2016-08-09 07:56] LABS: ABSOLUTE LYMPHOCYTES (AUTO) 0.3 10^3/uL (0.5-4.7); ABSOLUTE MONOCYTES (AUTO) 0.3 10^3/uL (0.1-1.4); ABSOLUTE NEUT (AUTO) 4.1 10^3/uL (1.7-8.2); HEMATOCRIT 26.4 % (37.9-51.0); HEMOGLOBIN 8.3 g/dL (13.5-17.0); HGB HCT DIFFERENCE -1.5; LYMPHOCYTES % (AUTO) 6.8 % (13-45); MEAN CORPUSCULAR HEMOGLOBIN 25.7 pg (27.0-33.4); MEAN CORPUSCULAR HGB CONC 31.5 g/dL (32.0-36.0); MEAN CORPUSCULAR VOLUME 82 fl (80-97); MONOCYTES % (AUTO) 5.5 % (3-13); RED BLOOD COUNT 3.23 10^6/uL (4.35-5.55); RED CELL DISTRIBUTION WIDTH 19.8 % (11.5-14.0); SEGMENTED NEUTROPHILS % (AUTO) 87.7 % (42-78); WHITE BLOOD COUNT 4.7 10^3/uL (4.0-10.5)
[2016-08-09 08:02] LABS: ALANINE AMINOTRANSFERASE 54 U/L (21-72); ALBUMIN 3.3 g/dL (3.5-5.0); ALKALINE PHOSPHATASE 106 U/L (38-126); ANION GAP 9 (5-19); ASPARTATE AMINO TRANSFERASE 40 U/L (17-59); BILIRUBIN,TOTAL 0.7 mg/dL (0.2-1.3); BLOOD UREA NITROGEN 48 mg/dL (7-20); CARBON DIOXIDE 32 mmol/L (22-30); CHLORIDE 96 mmol/L (98-107); CREATININE RESULT 2.93 mg/dL (0.52-1.25); GLUCOSE 211 mg/dL (75-110); MAGNESIUM 2.6 mg/dL (1.6-2.3); PHOSPHORUS 6.3 mg/dL (2.5-4.5); POTASSIUM 4.9 mmol/L (3.6-5.0); SODIUM 137.2 mmol/L (137-145)
[2016-08-09 08:09] LABS: PREALBUMIN 11.4 mg/dL (17.6-36.0)
[2016-08-09] MEDS: FOLIC ACID/VITAMIN B COMP W-C CAPSULE PO SCH (09:51)
[2016-08-09] MEDS: METOLAZONE 5 MG TABLET PO SCH ×2 (09:51→22:27)
[2016-08-09] MEDS: ISOSORBIDE MONONITRATE 30 MG TAB.ER.24H PO SCH (09:52)
[2016-08-09] MEDS: LINEZOLID 600 MG TABLET PO SCH ×2 (09:52→22:28)
[2016-08-09] MEDS: ASPIRIN 325 MG TABLET, ENT COATED PO SCH (09:52)
[2016-08-09] MEDS: NORMAL SALINE 10 ML SDV (SCHEDULED) IV SCH ×2 (09:53→22:29)
[2016-08-09] MEDS: APIXABAN 5 MG TABLET PO SCH ×2 (09:55→22:28)
[2016-08-09] MEDS: INSULIN LISPRO 100 UNIT/ML 3 ML VIAL SUBCUT PRN ×3 (09:59→22:28)
[2016-08-09] MEDS: ERTAPENEM SODIUM 0.5 GM in NORMAL SALINE 50 ML IV SCH (10:00)
[2016-08-09] MEDS: POLYETHYLENE GLYCOL 3350 POWDER 17 GM/1 PACKET PO SCH (10:02)
[2016-08-09] MEDS: DOCUSATE SODIUM 100 MG CAPSULE PO SCH ×2 (10:02→17:38)
--- NOTE | 2016-08-09 17:04 | PDOC PROGRESS REPORT ---
Subjective Progress Note for:: 08/09/16 Subjective:: Patient's blood pressure is improved over last 24 hours. His breathing is also improved according to him. Patient denies chest pain, abdominal pain, nausea, vomiting, fevers, chills, diarrhea, constipation, headache, new onset weakness. Physical Exam Vital Signs: Temp Pulse Resp BP Pulse Ox 98.2 F 56 L 23 H 154/63 H 98 08/09/16 04:18 08/09/16 04:18 08/09/16 04:30 08/09/16 04:18 08/09/16 04:18 Intake & Output 08/08/16 08/09/16 08/10/16 06:59 06:59 06:59 Intake Total 1590 1287 Output Total 3950 1900 Balance -2360 -613 Weight 120.1 kg Exam: General: Awake alert and oriented x3, no acute respiratory distress HEENT: AT/NC, PERRL, EOMI, oropharynx is moist, pink, no scleral icterus, no conjunctival injection Neck: +JVD, trachea midline Chest: Bilateral bibasilar rales, mild tachypnea, no retractions, CV: IRR, normal S1 and S2, no rub or gallop Abdomen: Soft, nontender to palpation, not distended, active bowel sounds; no rebound, rigidity, or guarding Extremities: No cyanosis, clubbing; trace edema Neuro: Cranial nerves II through XII are grossly intact without focal deficits; awake alert and oriented x3 Psych: Normal mood and affect Results Laboratory Results: 08/09/16 07:20 08/06/16 08/08/16 08/09/16 05:49 08:58 07:20 WBC 5.3 4.7 RBC 3.39 L 3.23 L Hgb 8.9 L 8.3 L Hct 27.3 L 26.4 L MCV 81 82 MCH 26.2 L 25.7 L MCHC 32.4 31.5 L RDW 19.5 H 19.8 H Plt Count 240 233 Seg Neutrophils % 90.4 H 87.7 H Lymphocytes % 7.3 L 6.8 L Monocytes % 1.8 L 5.5 Eosinophils % 0.1 0.0 Basophils % 0.4 0.0 Absolute Neutrophils 4.8 4.1 Absolute Lymphocytes 0.4 L 0.3 L Absolute Monocytes 0.1 0.3 Absolute Eosinophils 0.0 0.0 Absolute Basophils 0.0 0.0 Transferrin 164 L Total Protein 6.9 Albumin 2.7 L PTH Intact 65 Impressions: Humerus X-Ray 08/04/16 00:00 IMPRESSION: NO SIGNIFICANT RADIOGRAPHIC ABNORMALITY. NO RADIOPAQUE FOREIGN BODY. Guidance Fluoroscopy 08/05/16 00:00 IMPRESSION: SUCCESSFUL PLACEMENT OF A 5 FR DUAL LUMEN 44 CM PICC IN THE left basilic VEIN. Interventional Vascular Procedure 08/05/16 00:00 IMPRESSION: SUCCESSFUL PLACEMENT OF A 5 FR DUAL LUMEN 44 CM PICC IN THE left basilic VEIN. PICC Line Insertion 08/05/16 00:00 IMPRESSION: SUCCESSFUL PLACEMENT OF A 5 FR DUAL LUMEN 44 CM PICC IN THE left basilic VEIN. Renal Ultrasound 08/05/16 00:00 IMPRESSION: No hydronephrosis. Increased echogenicity of the bilateral renal parenchyma, may be seen with medical renal disease. Chest X-Ray 08/07/16 06:00 IMPRESSION: Significant improvement both lungs particular on the left with considerable residual opacity bilaterally. Tip of the left PICC line is now at or near the junction of the right internal jugular and right subclavian veins. Assessment & Plan - Diagnosis (1) Acute on chronic diastolic (congestive) heart failure Is this a current diagnosis for this admission?: YesPlan: Patient has grade 3 diastolic congestive heart failure. No David/ARB secondary to renal failure. Preserved EF. Also with pulmonary hypertension. Patient on metoprolol, Lasix, Eliquis, Imdur, and have added Nitropaste. Transition Nitropaste to Imdur. (2) Acute on chronic renal failure Is this a current diagnosis for this admission?: YesPlan: Patient appears to have a baseline creatinine of 1.6 to 1.8. Currently 2.93. Appreciate nephrology input (3) Anemia of chronic disease Is this a current diagnosis for this admission?: Yes (4) Atrial fibrillation Qualifiers: Atrial fibrillation type: chronic Qualified Code(s): I48.2 - Chronic atrial fibrillation Is this a current diagnosis for this admission?: Yes (5) Acute worsening of stage 3 chronic kidney disease Is this a current diagnosis for this admission?: Yes (6) BPH (benign prostatic hyperplasia) Qualifiers: Prostatic enlargement morphology: unspecified morphology Lower urinary tract symptom presence: symptoms present Qualified Code(s): N40.1 - Benign prostatic hyperplasia with lower urinary tract symptoms Is this a current diagnosis for this admission?: YesPlan: Continue use Daniels catheter as needed (7) Hyperlipidemia Qualifiers: Hyperlipidemia type: unspecified Qualified Code(s): E78.5 - Hyperlipidemia, unspecified Is this a current diagnosis for this admission?: Yes (8) Hypertensive urgency Is this a current diagnosis for this admission?: YesPlan: Have place when necessary hydralazine (9) Iron deficiency anemia Qualifiers: Iron deficiency anemia type: unspecified iron deficiency Qualified Code(s): D50.9 - Iron deficiency anemia, unspecified Is this a current diagnosis for this admission?: Yes (10) Osteomyelitis of right foot Is this a current diagnosis for this admission?: Yes (11) Prostate cancer Is this a current diagnosis for this admission?: Yes (12) Type 2 diabetes mellitus with hyperglycemia Qualifiers: Diabetes mellitus superintendent terminal insulin use: unspecified superintendent terminal insulin use status Qualified Code(s): E11.65 - Type 2 diabetes mellitus with hyperglycemia Is this a current diagnosis for this admission?: YesPlan: Have increased Lantus and will likely improve as steroids are tapered off. (13) Vitamin D deficiency Is this a current diagnosis for this admission?: Yes (14) Anticoagulated Is this a current diagnosis for this admission?: Yes (15) Atrial fibrillation Qualifiers: Atrial fibrillation type: unspecified Qualified Code(s): I48.91 - Unspecified atrial fibrillation Is this a current diagnosis for this admission?: Yes (16) COPD (chronic obstructive pulmonary disease) Qualifiers: COPD type: unspecified COPD Qualified Code(s): J44.9 - Chronic obstructive pulmonary disease, unspecified Is this a current diagnosis for this admission?: Yes (17) Diabetes mellitus type 2 in obese Is this a current diagnosis for this admission?: Yes (18) Obstructive sleep apnea Is this a current diagnosis for this admission?: Yes (19) Morbid obesity Qualifiers: Obesity type: with alveolar hypoventilation Qualified Code(s): E66.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
[2016-08-09] MEDS: PREDNISONE 20 MG TABLET PO SCH (17:31)
[2016-08-09] MEDS: ISOSORBIDE MONONITRATE 60 MG TAB.ER.24H PO SCH (17:32)
[2016-08-09] MEDS ORDERED: ISOSORBIDE MONONITRATE 30 MG TAB.ER.24H PO SCH (18:00)
--- NOTE | 2016-08-09 19:24 | PDOC PROGRESS REPORT ---
Subjective Progress Note for:: 08/09/16 Subjective:: She is seen today in the hospital. He is feeling better. His breathing satisfactorily with the nasal cannula. He states he tries to use the BiPAP at night. He denies any history of chest pains no history of any fever chills. Good Urinary output to the current diuretic regimen. Physical Exam Vital Signs: Temp Pulse Resp BP Pulse Ox 97.4 F 58 L 17 161/65 H 92 08/09/16 11:48 08/09/16 14:00 08/09/16 13:57 08/09/16 11:48 08/09/16 11:48 Intake & Output 08/08/16 08/09/16 08/10/16 06:59 06:59 06:59 Intake Total 1590 1347 992 Output Total 3950 1900 1550 Balance -3210 -553 -558 Weight 120.1 kg General appearance: PRESENT: no acute distress Respiratory exam: PRESENT: clear to auscultation cornell, crackles, symmetrical, tachypnea Cardiovascular exam: PRESENT: irregular rhythm, +S1, +S2 GI/Abdominal exam: PRESENT: distended, soft. ABSENT: firm, guarding, mass, tenderness Extremities exam: PRESENT: +2 edema Neurological exam: PRESENT: alert, awake, oriented to person, oriented to place , oriented to time Skin exam: PRESENT: mottled, rash Results Laboratory Results: 08/09/16 07:20 08/09/16 07:20 08/09/16 08/09/16 07:20 07:20 WBC 4.7 RBC 3.23 L Hgb 8.3 L Hct 26.4 L MCV 82 MCH 25.7 L MCHC 31.5 L RDW 19.8 H Plt Count 233 Seg Neutrophils % 87.7 H Lymphocytes % 6.8 L Monocytes % 5.5 Eosinophils % 0.0 Basophils % 0.0 Absolute Neutrophils 4.1 Absolute Lymphocytes 0.3 L Absolute Monocytes 0.3 Absolute Eosinophils 0.0 Absolute Basophils 0.0 Sodium 137.2 Potassium 4.9 Chloride 96 L Carbon Dioxide 32 H Anion Gap 9 BUN 48 H Creatinine 2.93 H Est GFR ( Amer) 25 L Est GFR (Non-Af Amer) 21 L Glucose 211 H Calcium 9.0 Phosphorus 6.3 H Magnesium 2.6 H Total Bilirubin 0.7 AST 40 ALT 54 Alkaline Phosphatase 106 Total Protein 7.0 Albumin 3.3 L Prealbumin 11.4 L Impressions: Humerus X-Ray 08/04/16 00:00 IMPRESSION: NO SIGNIFICANT RADIOGRAPHIC ABNORMALITY. NO RADIOPAQUE FOREIGN BODY. Guidance Fluoroscopy 08/05/16 00:00 IMPRESSION: SUCCESSFUL PLACEMENT OF A 5 FR DUAL LUMEN 44 CM PICC IN THE left basilic VEIN. Interventional Vascular Procedure 08/05/16 00:00 IMPRESSION: SUCCESSFUL PLACEMENT OF A 5 FR DUAL LUMEN 44 CM PICC IN THE left basilic VEIN. PICC Line Insertion 08/05/16 00:00 IMPRESSION: SUCCESSFUL PLACEMENT OF A 5 FR DUAL LUMEN 44 CM PICC IN THE left basilic VEIN. Renal Ultrasound 08/05/16 00:00 IMPRESSION: No hydronephrosis. Increased echogenicity of the bilateral renal parenchyma, may be seen with medical renal disease. Chest X-Ray 08/09/16 06:00 IMPRESSION: No change in the diffuse bilateral airspace disease compared to Assessment & Plan - Diagnosis (1) Acute on chronic renal failure Is this a current diagnosis for this admission?: YesPlan: Nonoliguric. Stable renal functions currently. Continue present medications. No indications for dialysis. (2) Anemia of chronic disease Is this a current diagnosis for this admission?: YesPlan: Began on erythropoietin. Monitor. (3) Atrial fibrillation Qualifiers: Atrial fibrillation type: chronic Qualified Code(s): I48.2 - Chronic atrial fibrillation Is this a current diagnosis for this admission?: Yes (4) Diastolic CHF Qualifiers: Congestive heart failure chronicity: chronic Qualified Code(s): I50.32 - Chronic diastolic (congestive) heart failure Is this a current diagnosis for this admission?: Yes (5) Fluid overload Qualifiers: Hypervolemia type: unspecified Qualified Code(s): E87.70 - Fluid overload, unspecified Is this a current diagnosis for this admission?: Yes (6) Hyperkalemia Is this a current diagnosis for this admission?: Yes (7) Acute worsening of stage 3 chronic kidney disease Is this a current diagnosis for this admission?: YesPlan: Mentioned earlier. See response to current medications. (8) Acute on chronic diastolic congestive heart failure Plan: improving. Better response to current diuretic regimen.no indications for dialysis. 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 See the clinical response to the antibiotics and as well as the renal response to them. . (14) Atrial fibrillation Qualifiers: Atrial fibrillation type: unspecified Qualified Code(s): I48.91 - Unspecified atrial fibrillation Is this a current diagnosis for this admission?: Yes (15) Obstructive sleep apnea Is this a current diagnosis for this admission?: YesPlan: Recommend that he be put on BiPAP every night so that he does not have further altered mental status and secondary to possible CO2 narcosis and such.
[2016-08-09] MEDS ORDERED: IPRATROPIUM/ALBUTEROL 0.5-2.5 MG/3 ML AMPUL NEB SCH (20:00)
[2016-08-09] MEDS ORDERED: INSULIN GLARGINE,HUM.REC.ANLOG 300 UNIT/3 ML INSULN.PEN SUBCUT SCH (22:00)
[2016-08-09] MEDS: METOPROLOL SUCCINATE 50 MG TAB.SR.24H PO SCH (22:42)
[2016-08-09] MEDS: SENNOSIDES/DOCUSATE 8.6-50 MG 1 EACH TABLET PO SCH (22:42)
[2016-08-10] MEDS: FUROSEMIDE INJ/PF 100 MG/10 ML SDV IV SCH (06:30)
[2016-08-10] MEDS: HYDRALAZINE HCL 50 MG TABLET PO SCH ×3 (06:31→21:46)
[2016-08-10] MEDS: INSULIN LISPRO 100 UNIT/ML 3 ML VIAL SUBCUT PRN ×4 (08:40→21:45)
[2016-08-10 09:02] LABS: ABSOLUTE BASOPHILS # (AUTO) 0.1 10^3/uL (0.0-0.2); ABSOLUTE LYMPHOCYTES (AUTO) 0.4 10^3/uL (0.5-4.7); ABSOLUTE MONOCYTES (AUTO) 0.4 10^3/uL (0.1-1.4); ABSOLUTE NEUT (AUTO) 6.6 10^3/uL (1.7-8.2); BASOPHILS % (AUTO) 0.9 % (0-2); HEMATOCRIT 27.9 % (37.9-51.0); HEMOGLOBIN 8.8 g/dL (13.5-17.0); HGB HCT DIFFERENCE -1.5; LYMPHOCYTES % (AUTO) 5.8 % (13-45); MEAN CORPUSCULAR HEMOGLOBIN 25.8 pg (27.0-33.4); MEAN CORPUSCULAR HGB CONC 31.5 g/dL (32.0-36.0); MEAN CORPUSCULAR VOLUME 82 fl (80-97); MONOCYTES % (AUTO) 5.6 % (3-13); RED CELL DISTRIBUTION WIDTH 18.9 % (11.5-14.0); SEGMENTED NEUTROPHILS % (AUTO) 87.7 % (42-78); WHITE BLOOD COUNT 7.5 10^3/uL (4.0-10.5)
[2016-08-10 09:20] LABS: ANION GAP 9 (5-19); BLOOD UREA NITROGEN 58 mg/dL (7-20); CALCIUM 9.1 mg/dL (8.4-10.2); CARBON DIOXIDE 35 mmol/L (22-30); CHLORIDE 94 mmol/L (98-107); CREATININE RESULT 2.85 mg/dL (0.52-1.25); GLUCOSE 261 mg/dL (75-110); POTASSIUM 4.9 mmol/L (3.6-5.0); SODIUM 138.3 mmol/L (137-145)
[2016-08-10] MEDS: IPRATROPIUM/ALBUTEROL 0.5-2.5 MG/3 ML AMPUL NEB PRN ×2 (09:54→10:36)
[2016-08-10] MEDS: LINEZOLID 600 MG TABLET PO SCH ×2 (11:07→21:46)
[2016-08-10] MEDS: METOLAZONE 5 MG TABLET PO SCH ×2 (11:07→21:46)
[2016-08-10] MEDS: ISOSORBIDE MONONITRATE 60 MG TAB.ER.24H PO SCH ×2 (11:07→18:20)
[2016-08-10] MEDS: ASPIRIN 325 MG TABLET, ENT COATED PO SCH (11:09)
[2016-08-10] MEDS: PREDNISONE 20 MG TABLET PO SCH ×2 (11:09→18:20)
[2016-08-10] MEDS: TIOTROPIUM BROMIDE DPI 5 CAP/KIT (18 MCG/CAP) IH SCH (11:09)
[2016-08-10] MEDS: FOLIC ACID/VITAMIN B COMP W-C CAPSULE PO SCH (11:09)
[2016-08-10] MEDS: NORMAL SALINE 10 ML SDV (SCHEDULED) IV SCH ×2 (11:10→21:47)
[2016-08-10] MEDS: APIXABAN 5 MG TABLET PO SCH ×2 (11:11→21:45)
[2016-08-10] MEDS: DOCUSATE SODIUM 100 MG CAPSULE PO SCH ×2 (11:22→18:21)
[2016-08-10] MEDS: ERTAPENEM SODIUM 0.5 GM in NORMAL SALINE 50 ML IV SCH (11:22)
[2016-08-10] MEDS: POLYETHYLENE GLYCOL 3350 POWDER 17 GM/1 PACKET PO SCH (11:22)
[2016-08-10] MEDS ORDERED: AMLODIPINE BESYLATE 10 MG TABLET PO ONE (13:15)
[2016-08-10] MEDS: BUMETANIDE INJ/PF 1 MG/4 ML SDV IV SCH ×2 (15:15→21:44)
--- NOTE | 2016-08-10 16:15 | PDOC PROGRESS REPORT ---
Subjective Progress Note for:: 08/10/16 Subjective:: He is looking better. He admits to improving breathing as well. No complaints of any chest pain, fever chills or Rigor's. Physical Exam Vital Signs: Temp Pulse Resp BP Pulse Ox 97.6 F 59 L 23 H 154/56 H 98 08/10/16 15:57 08/10/16 15:57 08/10/16 15:57 08/10/16 15:57 08/10/16 15:57 Intake & Output 08/09/16 08/10/16 08/11/16 06:59 06:59 06:59 Intake Total 1347 1457 Output Total 1900 3645 Balance -553 -5217 Weight 117.7 kg General appearance: PRESENT: no acute distress Respiratory exam: PRESENT: clear to auscultation cornell, symmetrical. ABSENT: crackles, rhonchi Cardiovascular exam: PRESENT: irregular rhythm, +S1, +S2 GI/Abdominal exam: PRESENT: distended, soft. ABSENT: firm, guarding, mass, tenderness Extremities exam: PRESENT: +1 edema Neurological exam: PRESENT: alert, awake, oriented to person, oriented to place , oriented to time Results Laboratory Results: 08/10/16 08:40 08/10/16 08:40 08/10/16 08/10/16 08:40 08:40 WBC 7.5 RBC 3.40 L Hgb 8.8 L Hct 27.9 L MCV 82 MCH 25.8 L MCHC 31.5 L RDW 18.9 H Plt Count 235 Seg Neutrophils % 87.7 H Lymphocytes % 5.8 L Monocytes % 5.6 Eosinophils % 0.0 Basophils % 0.9 Absolute Neutrophils 6.6 Absolute Lymphocytes 0.4 L Absolute Monocytes 0.4 Absolute Eosinophils 0.0 Absolute Basophils 0.1 Sodium 138.3 Potassium 4.9 Chloride 94 L Carbon Dioxide 35 H Anion Gap 9 BUN 58 H Creatinine 2.85 H Est GFR ( Amer) 26 L Est GFR (Non-Af Amer) 22 L Glucose 261 H Calcium 9.1 Impressions: Humerus X-Ray 08/04/16 00:00 IMPRESSION: NO SIGNIFICANT RADIOGRAPHIC ABNORMALITY. NO RADIOPAQUE FOREIGN BODY. Guidance Fluoroscopy 08/05/16 00:00 IMPRESSION: SUCCESSFUL PLACEMENT OF A 5 FR DUAL LUMEN 44 CM PICC IN THE left basilic VEIN. Interventional Vascular Procedure 08/05/16 00:00 IMPRESSION: SUCCESSFUL PLACEMENT OF A 5 FR DUAL LUMEN 44 CM PICC IN THE left basilic VEIN. PICC Line Insertion 08/05/16 00:00 IMPRESSION: SUCCESSFUL PLACEMENT OF A 5 FR DUAL LUMEN 44 CM PICC IN THE left basilic VEIN. Renal Ultrasound 08/05/16 00:00 IMPRESSION: No hydronephrosis. Increased echogenicity of the bilateral renal parenchyma, may be seen with medical renal disease. Chest X-Ray 08/09/16 06:00 IMPRESSION: No change in the diffuse bilateral airspace disease compared to Assessment & Plan - Diagnosis (1) Acute on chronic renal failure Is this a current diagnosis for this admission?: YesPlan: Nonoliguric. Stable renal functions currently. Continue present medications. No indications for dialysis. (2) Anemia of chronic disease Is this a current diagnosis for this admission?: YesPlan: Began on erythropoietin. Stable. Monitor. (3) Atrial fibrillation Qualifiers: Atrial fibrillation type: chronic Qualified Code(s): I48.2 - Chronic atrial fibrillation Is this a current diagnosis for this admission?: Yes (4) Diastolic CHF Qualifiers: Congestive heart failure chronicity: chronic Qualified Code(s): I50.32 - Chronic diastolic (congestive) heart failure Is this a current diagnosis for this admission?: Yes (5) Fluid overload Qualifiers: Hypervolemia type: unspecified Qualified Code(s): E87.70 - Fluid overload, unspecified Is this a current diagnosis for this admission?: Yes (6) Hyperkalemia Is this a current diagnosis for this admission?: YesPlan: Stable. Monitor (7) Acute worsening of stage 3 chronic kidney disease Is this a current diagnosis for this admission?: YesPlan: Mentioned earlier. See response to current medications. (8) Acute on chronic diastolic congestive heart failure Plan: He has biventricular failure which seems to be improving. Better response to current diuretic regimen.no indications for dialysis. (9) Anemia due to acute blood loss Plan: The status post IV iron. Has been begun on erythropoietin which will have to be continued as an outpatient. Monitor. 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 See the clinical response to the antibiotics and as well as the renal response to them. . (14) Atrial fibrillation Qualifiers: Atrial fibrillation type: unspecified Qualified Code(s): I48.91 - Unspecified atrial fibrillation Is this a current diagnosis for this admission?: Yes (15) Obstructive sleep apnea Is this a current diagnosis for this admission?: Yes
--- NOTE | 2016-08-10 16:47 | PDOC PROGRESS REPORT ---
Subjective Progress Note for:: 08/10/16 Subjective:: Patient denies chest pain, shortness of breath, abdominal pain, nausea, vomiting , fevers, chills, diarrhea, constipation, headache, new onset weakness. Physical Exam Vital Signs: Temp Pulse Resp BP Pulse Ox 98.1 F 57 L 33 H 160/63 H 96 08/10/16 03:11 08/10/16 03:11 08/10/16 06:00 08/10/16 03:11 08/10/16 03:11 Intake & Output 08/09/16 08/10/16 08/11/16 06:59 06:59 06:59 Intake Total 1347 1367 Output Total 1900 3625 Balance -553 -5024 Weight 117.7 kg Exam: General: Awake alert and oriented x3, no acute respiratory distress HEENT: AT/NC, PERRL, EOMI, oropharynx is moist, pink, no scleral icterus, no conjunctival injection Neck: +JVD, trachea midline Chest: Bilateral bibasilar rales, mild tachypnea, no retractions, CV: IRR, normal S1 and S2, no rub or gallop Abdomen: Soft, nontender to palpation, not distended, active bowel sounds; no rebound, rigidity, or guarding Extremities: No cyanosis, clubbing; trace edema Neuro: Cranial nerves II through XII are grossly intact without focal deficits; awake alert and oriented x3 Psych: Normal mood and affect Results Laboratory Results: 08/09/16 07:20 08/09/16 07:20 08/09/16 08/09/16 07:20 07:20 WBC 4.7 RBC 3.23 L Hgb 8.3 L Hct 26.4 L MCV 82 MCH 25.7 L MCHC 31.5 L RDW 19.8 H Plt Count 233 Seg Neutrophils % 87.7 H Lymphocytes % 6.8 L Monocytes % 5.5 Eosinophils % 0.0 Basophils % 0.0 Absolute Neutrophils 4.1 Absolute Lymphocytes 0.3 L Absolute Monocytes 0.3 Absolute Eosinophils 0.0 Absolute Basophils 0.0 Sodium 137.2 Potassium 4.9 Chloride 96 L Carbon Dioxide 32 H Anion Gap 9 BUN 48 H Creatinine 2.93 H Est GFR ( Amer) 25 L Est GFR (Non-Af Amer) 21 L Glucose 211 H Calcium 9.0 Phosphorus 6.3 H Magnesium 2.6 H Total Bilirubin 0.7 AST 40 ALT 54 Alkaline Phosphatase 106 Total Protein 7.0 Albumin 3.3 L Prealbumin 11.4 L Impressions: Humerus X-Ray 08/04/16 00:00 IMPRESSION: NO SIGNIFICANT RADIOGRAPHIC ABNORMALITY. NO RADIOPAQUE FOREIGN BODY. Guidance Fluoroscopy 08/05/16 00:00 IMPRESSION: SUCCESSFUL PLACEMENT OF A 5 FR DUAL LUMEN 44 CM PICC IN THE left basilic VEIN. Interventional Vascular Procedure 08/05/16 00:00 IMPRESSION: SUCCESSFUL PLACEMENT OF A 5 FR DUAL LUMEN 44 CM PICC IN THE left basilic VEIN. PICC Line Insertion 08/05/16 00:00 IMPRESSION: SUCCESSFUL PLACEMENT OF A 5 FR DUAL LUMEN 44 CM PICC IN THE left basilic VEIN. Renal Ultrasound 08/05/16 00:00 IMPRESSION: No hydronephrosis. Increased echogenicity of the bilateral renal parenchyma, may be seen with medical renal disease. Chest X-Ray 08/09/16 06:00 IMPRESSION: No change in the diffuse bilateral airspace disease compared to Assessment & Plan - Diagnosis (1) Acute on chronic diastolic (congestive) heart failure Is this a current diagnosis for this admission?: YesPlan: Patient has grade 3 diastolic congestive heart failure. No David/ARB secondary to renal failure. Preserved EF. Also with pulmonary hypertension. Patient on metoprolol, Eliquis, Imdur, and hydralazine. Transition Lasix to Bumex (2) Acute on chronic renal failure Is this a current diagnosis for this admission?: YesPlan: Patient appears to have a baseline creatinine of 1.6 to 1.8. Currently 2.85. Appreciate nephrology input (3) Anemia of chronic disease Is this a current diagnosis for this admission?: YesPlan: Patient receiving Procrit every 7 days (4) Atrial fibrillation Qualifiers: Atrial fibrillation type: chronic Qualified Code(s): I48.2 - Chronic atrial fibrillation Is this a current diagnosis for this admission?: Yes (5) Acute worsening of stage 3 chronic kidney disease Is this a current diagnosis for this admission?: Yes (6) BPH (benign prostatic hyperplasia) Qualifiers: Prostatic enlargement morphology: unspecified morphology Lower urinary tract symptom presence: symptoms present Qualified Code(s): N40.1 - Benign prostatic hyperplasia with lower urinary tract symptoms Is this a current diagnosis for this admission?: YesPlan: Continue use Daniels catheter as needed (7) Hyperlipidemia Qualifiers: Hyperlipidemia type: unspecified Qualified Code(s): E78.5 - Hyperlipidemia, unspecified Is this a current diagnosis for this admission?: Yes (8) Hypertensive urgency Is this a current diagnosis for this admission?: YesPlan: Have place when necessary hydralazine (9) Iron deficiency anemia Qualifiers: Iron deficiency anemia type: unspecified iron deficiency Qualified Code(s): D50.9 - Iron deficiency anemia, unspecified Is this a current diagnosis for this admission?: Yes (10) Osteomyelitis of right foot Is this a current diagnosis for this admission?: YesPlan: Continue antibiotics and wound care. Tissue looks good with pink granulation. (11) Prostate cancer Is this a current diagnosis for this admission?: Yes (12) Type 2 diabetes mellitus with hyperglycemia Qualifiers: Diabetes mellitus terminal computer operator insulin use: unspecified terminal computer operator insulin use status Qualified Code(s): E11.65 - Type 2 diabetes mellitus with hyperglycemia Is this a current diagnosis for this admission?: Yes (13) Vitamin D deficiency Is this a current diagnosis for this admission?: Yes (14) Anticoagulated Is this a current diagnosis for this admission?: Yes (15) Atrial fibrillation Qualifiers: Atrial fibrillation type: unspecified Qualified Code(s): I48.91 - Unspecified atrial fibrillation Is this a current diagnosis for this admission?: Yes (16) COPD (chronic obstructive pulmonary disease) Qualifiers: COPD type: unspecified COPD Qualified Code(s): J44.9 - Chronic obstructive pulmonary disease, unspecified Is this a current diagnosis for this admission?: Yes (17) Diabetes mellitus type 2 in obese Is this a current diagnosis for this admission?: Yes (18) Obstructive sleep apnea Is this a current diagnosis for this admission?: Yes (19) Morbid obesity Qualifiers: Obesity type: with alveolar hypoventilation Qualified Code(s): E66.2 - Morbid (severe) obesity with alveolar hypoventilation Is this a current diagnosis for this admission?: Yes (20) Discussion about advance care planning held with family member Is this a current diagnosis for this admission?: YesPlan: Discussed with patient's nephew and have discussed CODE STATUS as well as discharge planning with him. - Time Time Spent with patient: 35 or more minutes Medications reviewed and adjusted accordingly: Yes Anticipated discharge: Acute Rehab
[2016-08-10] MEDS: HYDRALAZINE HCL INJ/PF 20 MG/1 ML SDV IV PRN (20:45)
[2016-08-10] MEDS: METOPROLOL SUCCINATE 50 MG TAB.SR.24H PO SCH (21:45)
[2016-08-10] MEDS: SENNOSIDES/DOCUSATE 8.6-50 MG 1 EACH TABLET PO SCH (21:45)
[2016-08-10] MEDS ORDERED: INSULIN GLARGINE,HUM.REC.ANLOG 300 UNIT/3 ML INSULN.PEN SUBCUT SCH (22:00)
[2016-08-11] MEDS: BUMETANIDE INJ/PF 1 MG/4 ML SDV IV SCH ×3 (06:02→17:15)
[2016-08-11] MEDS: HYDRALAZINE HCL 50 MG TABLET PO SCH ×3 (06:02→22:25)
[2016-08-11 06:57] LABS: ANION GAP 8 (5-19); BLOOD UREA NITROGEN 58 mg/dL (7-20); CALCIUM 9.1 mg/dL (8.4-10.2); CARBON DIOXIDE 38 mmol/L (22-30); CHLORIDE 93 mmol/L (98-107); CREATININE RESULT 2.43 mg/dL (0.52-1.25); GLUCOSE 205 mg/dL (75-110); MAGNESIUM 2.2 mg/dL (1.6-2.3); POTASSIUM 4.8 mmol/L (3.6-5.0); SODIUM 138.9 mmol/L (137-145)
[2016-08-11] MEDS: INSULIN LISPRO 100 UNIT/ML 3 ML VIAL SUBCUT PRN ×4 (07:58→22:57)
[2016-08-11] MEDS ORDERED: ERGOCALCIFEROL (VITAMIN D2) 50000 UNIT (1.25 MG) CAPSULE PO SCH ×2 (09:00→10:00)
[2016-08-11] MEDS ORDERED: PREDNISONE 20 MG TABLET PO SCH (10:00)
[2016-08-11] MEDS: LINEZOLID 600 MG TABLET PO SCH ×2 (11:14→22:25)
[2016-08-11] MEDS: ISOSORBIDE MONONITRATE 60 MG TAB.ER.24H PO SCH ×2 (11:14→17:15)
[2016-08-11] MEDS: ASPIRIN 325 MG TABLET, ENT COATED PO SCH (11:14)
[2016-08-11] MEDS: METOLAZONE 5 MG TABLET PO SCH ×2 (11:14→22:25)
[2016-08-11] MEDS: APIXABAN 5 MG TABLET PO SCH ×2 (11:15→22:25)
[2016-08-11] MEDS: AMLODIPINE BESYLATE 10 MG TABLET PO SCH (11:15)
[2016-08-11] MEDS: FOLIC ACID/VITAMIN B COMP W-C CAPSULE PO SCH (11:16)
[2016-08-11] MEDS: TIOTROPIUM BROMIDE DPI 5 CAP/KIT (18 MCG/CAP) IH SCH (11:17)
[2016-08-11] MEDS: NORMAL SALINE 10 ML SDV (SCHEDULED) IV SCH ×2 (11:18→22:27)
[2016-08-11] MEDS: ERTAPENEM SODIUM 0.5 GM in NORMAL SALINE 50 ML IV SCH (11:22)
[2016-08-11] MEDS: POLYETHYLENE GLYCOL 3350 POWDER 17 GM/1 PACKET PO SCH (11:22)
[2016-08-11] MEDS: DOCUSATE SODIUM 100 MG CAPSULE PO SCH ×2 (11:22→17:17)
--- NOTE | 2016-08-11 16:26 | PDOC PROGRESS REPORT ---
Subjective Progress Note for:: 08/11/16 Subjective:: Patient reports he's feeling better. He denies new complaints. Patient denies chest pain, shortness of breath, abdominal pain, nausea, vomiting, fevers, chills, diarrhea, constipation, headache, new onset weakness. Physical Exam Vital Signs: Temp Pulse Resp BP Pulse Ox 97.4 F 58 L 18 180/62 H 99 08/10/16 23:47 08/11/16 05:48 08/11/16 05:48 08/11/16 05:48 08/11/16 05:48 Intake & Output 08/10/16 08/11/16 08/12/16 06:59 06:59 06:59 Intake Total 1457 1522 Output Total 3121 5000 Balance -6053 -5775 Weight 117.7 kg 116.3 kg Exam: General: Awake alert and oriented x3, no acute respiratory distress HEENT: AT/NC, PERRL, EOMI, oropharynx is moist, pink, no scleral icterus, no conjunctival injection Neck: +JVD, trachea midline Chest: Bilateral bibasilar rales, CV: IRR, normal S1 and S2, no rub or gallop Abdomen: Soft, nontender to palpation, not distended, active bowel sounds; no rebound, rigidity, or guarding Extremities: No cyanosis, clubbing; trace edema Neuro: Cranial nerves II through XII are grossly intact without focal deficits; awake alert and oriented x3 Psych: Normal mood and affect Results Laboratory Results: 08/10/16 08:40 08/11/16 06:15 08/10/16 08/10/16 08/11/16 08:40 08:40 06:15 WBC 7.5 RBC 3.40 L Hgb 8.8 L Hct 27.9 L MCV 82 MCH 25.8 L MCHC 31.5 L RDW 18.9 H Plt Count 235 Seg Neutrophils % 87.7 H Lymphocytes % 5.8 L Monocytes % 5.6 Eosinophils % 0.0 Basophils % 0.9 Absolute Neutrophils 6.6 Absolute Lymphocytes 0.4 L Absolute Monocytes 0.4 Absolute Eosinophils 0.0 Absolute Basophils 0.1 Sodium 138.3 138.9 Potassium 4.9 4.8 Chloride 94 L 93 L Carbon Dioxide 35 H 38 H Anion Gap 9 8 BUN 58 H 58 H Creatinine 2.85 H 2.43 H Est GFR ( Amer) 26 L 31 L Est GFR (Non-Af Amer) 22 L 26 L Glucose 261 H 205 H Calcium 9.1 9.1 Magnesium 2.2 Impressions: Humerus X-Ray 08/04/16 00:00 IMPRESSION: NO SIGNIFICANT RADIOGRAPHIC ABNORMALITY. NO RADIOPAQUE FOREIGN BODY. Guidance Fluoroscopy 08/05/16 00:00 IMPRESSION: SUCCESSFUL PLACEMENT OF A 5 FR DUAL LUMEN 44 CM PICC IN THE left basilic VEIN. Interventional Vascular Procedure 08/05/16 00:00 IMPRESSION: SUCCESSFUL PLACEMENT OF A 5 FR DUAL LUMEN 44 CM PICC IN THE left basilic VEIN. PICC Line Insertion 08/05/16 00:00 IMPRESSION: SUCCESSFUL PLACEMENT OF A 5 FR DUAL LUMEN 44 CM PICC IN THE left basilic VEIN. Renal Ultrasound 08/05/16 00:00 IMPRESSION: No hydronephrosis. Increased echogenicity of the bilateral renal parenchyma, may be seen with medical renal disease. Chest X-Ray 08/09/16 06:00 IMPRESSION: No change in the diffuse bilateral airspace disease compared to Assessment & Plan - Diagnosis (1) Acute on chronic diastolic (congestive) heart failure Is this a current diagnosis for this admission?: YesPlan: Patient has grade 3 diastolic congestive heart failure. No David/ARB secondary to renal failure. Preserved EF. Also with pulmonary hypertension. Patient on metoprolol, Eliquis, Imdur, and hydralazine. Improved diuresis with Bumex (2) Acute on chronic renal failure Is this a current diagnosis for this admission?: YesPlan: Patient appears to have a baseline creatinine of 1.6 to 1.8. Currently 2.43. Appreciate nephrology input (3) Anemia of chronic disease Is this a current diagnosis for this admission?: YesPlan: Patient receiving Procrit every 7 days (4) Atrial fibrillation Qualifiers: Atrial fibrillation type: chronic Qualified Code(s): I48.2 - Chronic atrial fibrillation Is this a current diagnosis for this admission?: YesPlan: Currently bradycardic. On metoprolol. (5) Acute worsening of stage 3 chronic kidney disease Is this a current diagnosis for this admission?: Yes (6) BPH (benign prostatic hyperplasia) Qualifiers: Prostatic enlargement morphology: unspecified morphology Lower urinary tract symptom presence: symptoms present Qualified Code(s): N40.1 - Benign prostatic hyperplasia with lower urinary tract symptoms Is this a current diagnosis for this admission?: Yes (7) Hyperlipidemia Qualifiers: Hyperlipidemia type: unspecified Qualified Code(s): E78.5 - Hyperlipidemia, unspecified Is this a current diagnosis for this admission?: Yes (8) Hypertensive urgency Is this a current diagnosis for this admission?: YesPlan: Have increased patient's hydralazine and added Cardura. (9) Iron deficiency anemia Qualifiers: Iron deficiency anemia type: unspecified iron deficiency Qualified Code(s): D50.9 - Iron deficiency anemia, unspecified Is this a current diagnosis for this admission?: Yes (10) Osteomyelitis of right foot Is this a current diagnosis for this admission?: Yes (11) Prostate cancer Is this a current diagnosis for this admission?: Yes (12) Type 2 diabetes mellitus with hyperglycemia Qualifiers: Diabetes mellitus halfway insulin use: unspecified halfway insulin use status Qualified Code(s): E11.65 - Type 2 diabetes mellitus with hyperglycemia Is this a current diagnosis for this admission?: Yes (13) Vitamin D deficiency Is this a current diagnosis for this admission?: Yes (14) Anticoagulated Is this a current diagnosis for this admission?: Yes (15) Atrial fibrillation Qualifiers: Atrial fibrillation type: unspecified Qualified Code(s): I48.91 - Unspecified atrial fibrillation Is this a current diagnosis for this admission?: Yes (16) COPD (chronic obstructive pulmonary disease) Qualifiers: COPD type: unspecified COPD Qualified Code(s): J44.9 - Chronic obstructive pulmonary disease, unspecified Is this a current diagnosis for this admission?: Yes (17) Diabetes mellitus type 2 in obese Is this a current diagnosis for this admission?: Yes (18) Obstructive sleep apnea Is this a current diagnosis for this admission?: Yes (19) Morbid obesity Qualifiers: Obesity type: with alveolar hypoventilation Qualified Code(s): E66.2 - Morbid (severe) obesity with alveolar hypoventilation Is this a current diagnosis for this admission?: Yes - Time Time Spent with patient: 25-34 minutes Medications reviewed and adjusted accordingly: Yes Anticipated discharge: Acute Rehab Within: within 72 hours
--- NOTE | 2016-08-11 17:03 | PDOC PROGRESS REPORT ---
Subjective Progress Note for:: 08/11/16 Subjective:: Patient was seen in the hospital today. He is continuing to improve. He has got a really good urine output now of coming. He denies any history of chest pain or shortness of breath which is a whole lot better. He is getting impatient and would like to go to the sn[facility] for rehab. Not really ambulatory at the moment. Physical Exam Vital Signs: Temp Pulse Resp BP Pulse Ox 97.4 F 60 22 H 175/61 H 100 08/11/16 12:00 08/11/16 14:00 08/11/16 12:00 08/11/16 12:00 08/11/16 12:00 Intake & Output 08/10/16 08/11/16 08/12/16 06:59 06:59 06:59 Intake Total 1457 1522 240 Output Total 3125 5000 1000 Balance -1668 -3478 -760 Weight 117.7 kg 116.3 kg 116.3 kg General appearance: PRESENT: no acute distress Respiratory exam: PRESENT: clear to auscultation cornell. ABSENT: crackles, rhonchi Cardiovascular exam: PRESENT: irregular rhythm, +S1, +S2 GI/Abdominal exam: PRESENT: distended, soft. ABSENT: firm, guarding, mass, tenderness Extremities exam: PRESENT: pedal edema - -Trace Neurological exam: PRESENT: alert, awake, oriented to person, oriented to place , oriented to time Results Laboratory Results: 08/10/16 08:40 08/11/16 06:15 08/11/16 06:15 Sodium 138.9 Potassium 4.8 Chloride 93 L Carbon Dioxide 38 H Anion Gap 8 BUN 58 H Creatinine 2.43 H Est GFR ( Amer) 31 L Est GFR (Non-Af Amer) 26 L Glucose 205 H Calcium 9.1 Magnesium 2.2 Impressions: Humerus X-Ray 08/04/16 00:00 IMPRESSION: NO SIGNIFICANT RADIOGRAPHIC ABNORMALITY. NO RADIOPAQUE FOREIGN BODY. Guidance Fluoroscopy 08/05/16 00:00 IMPRESSION: SUCCESSFUL PLACEMENT OF A 5 FR DUAL LUMEN 44 CM PICC IN THE left basilic VEIN. Interventional Vascular Procedure 08/05/16 00:00 IMPRESSION: SUCCESSFUL PLACEMENT OF A 5 FR DUAL LUMEN 44 CM PICC IN THE left basilic VEIN. PICC Line Insertion 08/05/16 00:00 IMPRESSION: SUCCESSFUL PLACEMENT OF A 5 FR DUAL LUMEN 44 CM PICC IN THE left basilic VEIN. Renal Ultrasound 08/05/16 00:00 IMPRESSION: No hydronephrosis. Increased echogenicity of the bilateral renal parenchyma, may be seen with medical renal disease. Chest X-Ray 08/09/16 06:00 IMPRESSION: No change in the diffuse bilateral airspace disease compared to Assessment & Plan - Diagnosis (1) Acute on chronic renal failure Is this a current diagnosis for this admission?: YesPlan: Nonoliguric. Stable renal functions currently. Continue present medications. No indications for dialysis.I discussed the case with Dr. Petty, the hospitalist. Agree with conversion of his diuretic regimen to Bumex but I would consider concurrent wording that into p.o. by tomorrow as he is getting ready to be discharged to a snf for rehab in the next couple of days. In the meanwhile he is also deconditioned and I would encourage initiation of physical therapy while he is in the hospital. (2) Anemia of chronic disease Is this a current diagnosis for this admission?: YesPlan: Began on erythropoietin. Stable. Monitor. (3) Atrial fibrillation Qualifiers: Atrial fibrillation type: chronic Qualified Code(s): I48.2 - Chronic atrial fibrillation Is this a current diagnosis for this admission?: Yes (4) Diastolic CHF Qualifiers: Congestive heart failure chronicity: chronic Qualified Code(s): I50.32 - Chronic diastolic (congestive) heart failure Is this a current diagnosis for this admission?: Yes (5) Fluid overload Qualifiers: Hypervolemia type: unspecified Qualified Code(s): E87.70 - Fluid overload, unspecified Is this a current diagnosis for this admission?: Yes (6) Hyperkalemia Is this a current diagnosis for this admission?: Yes (7) Acute worsening of stage 3 chronic kidney disease Is this a current diagnosis for this admission?: YesPlan: Stable. See response to current medications. (8) Acute on chronic diastolic congestive heart failure Plan: He has biventricular failure which seems to be improving. Better response to current diuretic regimen.no indications for dialysis. (9) Anemia due to acute blood loss Plan: Stable.status post IV iron. Has been begun on erythropoietin which will have to be continued as an outpatient. Monitor. (11) Hypertension Qualifiers: Hypertension type: essential hypertension Qualified Code(s): I10 - Essential (primary) hypertension Is this a current diagnosis for this admission?: Yes (12) Morbid obesity Qualifiers: Obesity type: with alveolar hypoventilation Qualified Code(s): E66.2 - Morbid (severe) obesity with alveolar hypoventilation Is this a current diagnosis for this admission?: Yes (13) Osteomyelitis of right foot Is this a current diagnosis for this admission?: Yes (14) Atrial fibrillation Qualifiers: Atrial fibrillation type: unspecified Qualified Code(s): I48.91 - Unspecified atrial fibrillation Is this a current diagnosis for this admission?: Yes (15) Obstructive sleep apnea Is this a current diagnosis for this admission?: YesPlan: Recommend that he be put on BiPAP every night so that he does not have further altered mental status and secondary to possible CO2 narcosis and such.
[2016-08-11] MEDS ORDERED: INSULIN GLARGINE,HUM.REC.ANLOG 300 UNIT/3 ML INSULN.PEN SUBCUT SCH ×2 (22:00)
[2016-08-11] MEDS ORDERED: MINOXIDIL 2.5 MG TABLET PO SCH (22:00)
[2016-08-11] MEDS: METOPROLOL SUCCINATE 50 MG TAB.SR.24H PO SCH (22:26)
[2016-08-11] MEDS: DOXAZOSIN MESYLATE 4 MG TABLET PO SCH (22:26)
[2016-08-11] MEDS: SENNOSIDES/DOCUSATE 8.6-50 MG 1 EACH TABLET PO SCH (22:28)
[2016-08-12] MEDS: HYDRALAZINE HCL 50 MG TABLET PO SCH ×3 (06:05→22:52)
[2016-08-12] MEDS ORDERED: INSULIN GLARGINE,HUM.REC.ANLOG 1,000 UNIT/10 ML UNIT SUBCUT SCH (08:00)
[2016-08-12] MEDS ORDERED: INSULIN LISPRO 100 UNIT/ML 3 ML VIAL SUBCUT SCH (08:00)
[2016-08-12] MEDS: AMLODIPINE BESYLATE 10 MG TABLET PO SCH (09:32)
[2016-08-12] MEDS: FOLIC ACID/VITAMIN B COMP W-C CAPSULE PO SCH (09:32)
[2016-08-12] MEDS: ASPIRIN 325 MG TABLET, ENT COATED PO SCH (09:32)
[2016-08-12] MEDS: METOLAZONE 5 MG TABLET PO SCH (09:32)
[2016-08-12] MEDS: LINEZOLID 600 MG TABLET PO SCH ×2 (09:32→22:52)
[2016-08-12] MEDS: ISOSORBIDE MONONITRATE 60 MG TAB.ER.24H PO SCH ×2 (09:32→18:59)
[2016-08-12] MEDS: TIOTROPIUM BROMIDE DPI 5 CAP/KIT (18 MCG/CAP) IH SCH (09:35)
[2016-08-12] MEDS: NORMAL SALINE 10 ML SDV (SCHEDULED) IV SCH ×2 (09:35→22:53)
[2016-08-12] MEDS: DOCUSATE SODIUM 100 MG CAPSULE PO SCH ×2 (09:50→18:59)
[2016-08-12] MEDS: POLYETHYLENE GLYCOL 3350 POWDER 17 GM/1 PACKET PO SCH (09:50)
[2016-08-12] MEDS: APIXABAN 5 MG TABLET PO SCH ×2 (09:54→22:50)
[2016-08-12] MEDS: INSULIN LISPRO 100 UNIT/ML 3 ML VIAL SUBCUT PRN ×3 (09:55→19:03)
[2016-08-12] MEDS: INSULIN LISPRO 100 UNIT/ML 3 ML VIAL SUBCUT SCH ×3 (09:55→18:59)
[2016-08-12] MEDS: BUMETANIDE INJ/PF 1 MG/4 ML SDV IV SCH (10:19)
[2016-08-12] MEDS: ERTAPENEM SODIUM 0.5 GM in NORMAL SALINE 50 ML IV SCH (10:19)
[2016-08-12 10:29] LABS: BLOOD UREA NITROGEN 58 mg/dL (7-20); CALCIUM 9.1 mg/dL (8.4-10.2); CHLORIDE 92 mmol/L (98-107); CREATININE RESULT 2.25 mg/dL (0.52-1.25); GLUCOSE 128 mg/dL (75-110); POTASSIUM 4.1 mmol/L (3.6-5.0)
[2016-08-12 10:46] LABS: ANION GAP 7 (5-19)
[2016-08-12 10:52] LABS: CARBON DIOXIDE 40 mmol/L (22-30)
--- NOTE | 2016-08-12 21:19 | PDOC PROGRESS REPORT ---
Subjective Progress Note for:: 08/12/16 Subjective:: Patient denies chest pain, shortness of breath, abdominal pain, nausea, vomiting , fevers, chills, diarrhea, constipation, headache, new onset weakness. Physical Exam Vital Signs: Temp Pulse Resp BP Pulse Ox 97.7 F 59 L 22 H 134/46 H 100 08/12/16 07:45 08/12/16 07:45 08/12/16 07:45 08/12/16 07:45 08/12/16 07:45 Intake & Output 08/11/16 08/12/16 08/13/16 06:59 06:59 06:59 Intake Total 1522 1716 Output Total 5000 4100 Balance -1295 -8115 Weight 116.3 kg 115.6 kg Exam: General: Awake alert and oriented x3, no acute respiratory distress HEENT: AT/NC, PERRL, EOMI, oropharynx is moist, pink, no scleral icterus, no conjunctival injection Neck: no JVD, trachea midline Chest: Clear to auscultation bilaterally CV: IRR, normal S1 and S2, no rub or gallop Abdomen: Soft, nontender to palpation, not distended, active bowel sounds; no rebound, rigidity, or guarding Extremities: No cyanosis, clubbing; trace edema Neuro: Cranial nerves II through XII are grossly intact without focal deficits; awake alert and oriented x3 Psych: Normal mood and affect Results Laboratory Results: 08/10/16 08:40 08/11/16 06:15 Impressions: Humerus X-Ray 08/04/16 00:00 IMPRESSION: NO SIGNIFICANT RADIOGRAPHIC ABNORMALITY. NO RADIOPAQUE FOREIGN BODY. Guidance Fluoroscopy 08/05/16 00:00 IMPRESSION: SUCCESSFUL PLACEMENT OF A 5 FR DUAL LUMEN 44 CM PICC IN THE left basilic VEIN. Interventional Vascular Procedure 08/05/16 00:00 IMPRESSION: SUCCESSFUL PLACEMENT OF A 5 FR DUAL LUMEN 44 CM PICC IN THE left basilic VEIN. PICC Line Insertion 08/05/16 00:00 IMPRESSION: SUCCESSFUL PLACEMENT OF A 5 FR DUAL LUMEN 44 CM PICC IN THE left basilic VEIN. Renal Ultrasound 08/05/16 00:00 IMPRESSION: No hydronephrosis. Increased echogenicity of the bilateral renal parenchyma, may be seen with medical renal disease. Chest X-Ray 08/09/16 06:00 IMPRESSION: No change in the diffuse bilateral airspace disease compared to Assessment & Plan - Diagnosis (1) Acute on chronic diastolic (congestive) heart failure Is this a current diagnosis for this admission?: YesPlan: Patient now euvolemic to mildly dehydrated. Patient has grade 3 diastolic congestive heart failure. No David/ARB secondary to renal failure. Preserved EF. Also with pulmonary hypertension. Patient on metoprolol, Eliquis, Imdur, and hydralazine. Improved diuresis with Bumex transition to Lasix oral. (2) Acute on chronic renal failure Is this a current diagnosis for this admission?: YesPlan: Patient appears to have a baseline creatinine of 1.6 to 1.8. Currently 2.25. Appreciate nephrology input (3) Anemia of chronic disease Is this a current diagnosis for this admission?: YesPlan: Patient receiving Procrit every 7 days (4) Atrial fibrillation Qualifiers: Atrial fibrillation type: chronic Qualified Code(s): I48.2 - Chronic atrial fibrillation Is this a current diagnosis for this admission?: YesPlan: Currently bradycardic. On metoprolol. Also on Eliquis (5) Acute worsening of stage 3 chronic kidney disease Is this a current diagnosis for this admission?: YesPlan: Improved (6) BPH (benign prostatic hyperplasia) Qualifiers: Prostatic enlargement morphology: unspecified morphology Lower urinary tract symptom presence: symptoms present Qualified Code(s): N40.1 - Benign prostatic hyperplasia with lower urinary tract symptoms Is this a current diagnosis for this admission?: YesPlan: Continue use Daniels catheter as needed. Unable to tolerate Daniels removal. (7) Hyperlipidemia Qualifiers: Hyperlipidemia type: unspecified Qualified Code(s): E78.5 - Hyperlipidemia, unspecified Is this a current diagnosis for this admission?: Yes (8) Hypertensive urgency Is this a current diagnosis for this admission?: Yes (9) Iron deficiency anemia Qualifiers: Iron deficiency anemia type: unspecified iron deficiency Qualified Code(s): D50.9 - Iron deficiency anemia, unspecified Is this a current diagnosis for this admission?: Yes (10) Osteomyelitis of right foot Is this a current diagnosis for this admission?: YesPlan: Continue antibiotics and wound care. Tissue looks good with pink granulation. Continue current antibiotics. (11) Prostate cancer Is this a current diagnosis for this admission?: Yes (12) Type 2 diabetes mellitus with hyperglycemia Qualifiers: Diabetes mellitus fdc insulin use: unspecified proposal coordinator insulin use status Qualified Code(s): E11.65 - Type 2 diabetes mellitus with hyperglycemia Is this a current diagnosis for this admission?: Yes (13) Vitamin D deficiency Is this a current diagnosis for this admission?: Yes (14) Anticoagulated Is this a current diagnosis for this admission?: Yes (15) Atrial fibrillation Qualifiers: Atrial fibrillation type: unspecified Qualified Code(s): I48.91 - Unspecified atrial fibrillation Is this a current diagnosis for this admission?: Yes (16) COPD (chronic obstructive pulmonary disease) Qualifiers: COPD type: unspecified COPD Qualified Code(s): J44.9 - Chronic obstructive pulmonary disease, unspecified Is this a current diagnosis for this admission?: Yes (17) Diabetes mellitus type 2 in obese Is this a current diagnosis for this admission?: YesPlan: Improved off steroids. Continue Lantus and sliding scale. (18) Obstructive sleep apnea Is this a current diagnosis for this admission?: YesPlan: Continue BiPAP as needed. Patient reports that he's had positive sleep study in the past. Patient will need repeat sleep study as an outpatient. (19) Morbid obesity Qualifiers: Obesity type: with alveolar hypoventilation Qualified Code(s): E66.2 - Morbid (severe) obesity with alveolar hypoventilation Is this a current diagnosis for this admission?: Yes - Time Time Spent with patient: 25-34 minutes Medications reviewed and adjusted accordingly: Yes Anticipated discharge: Acute Rehab Within: within 48 hours, within 72 hours
[2016-08-12] MEDS ORDERED: INSULIN GLARGINE,HUM.REC.ANLOG 300 UNIT/3 ML INSULN.PEN SUBCUT SCH (22:00)
[2016-08-12] MEDS: DOXAZOSIN MESYLATE 4 MG TABLET PO SCH (22:52)
[2016-08-12] MEDS: METOPROLOL SUCCINATE 50 MG TAB.SR.24H PO SCH (22:52)
[2016-08-13] MEDS: HYDRALAZINE HCL 50 MG TABLET PO SCH ×2 (05:58→14:54)
[2016-08-13 07:32] LABS: BLOOD UREA NITROGEN 60 mg/dL (7-20); CALCIUM 8.8 mg/dL (8.4-10.2); CHLORIDE 91 mmol/L (98-107); CREATININE RESULT 2.02 mg/dL (0.52-1.25); GLUCOSE 94 mg/dL (75-110); SODIUM 137.6 mmol/L (137-145)
[2016-08-13 07:40] LABS: ANION GAP 7 (5-19)
[2016-08-13 07:48] LABS: CARBON DIOXIDE 40 mmol/L (22-30)
[2016-08-13] MEDS: TIOTROPIUM BROMIDE DPI 5 CAP/KIT (18 MCG/CAP) IH SCH (09:45)
[2016-08-13] MEDS: LINEZOLID 600 MG TABLET PO SCH (09:48)
[2016-08-13] MEDS: AMLODIPINE BESYLATE 10 MG TABLET PO SCH (09:50)
[2016-08-13] MEDS: ISOSORBIDE MONONITRATE 60 MG TAB.ER.24H PO SCH (09:50)
[2016-08-13] MEDS: ASPIRIN 325 MG TABLET, ENT COATED PO SCH (09:50)
[2016-08-13] MEDS: FOLIC ACID/VITAMIN B COMP W-C CAPSULE PO SCH (09:51)
[2016-08-13] MEDS: ERTAPENEM SODIUM 0.5 GM in NORMAL SALINE 50 ML IV SCH (09:52)
[2016-08-13] MEDS: NORMAL SALINE 10 ML SDV (SCHEDULED) IV SCH (09:52)
[2016-08-13] MEDS ORDERED: FUROSEMIDE 20 MG TABLET PO SCH (10:00)
[2016-08-13] MEDS: APIXABAN 5 MG TABLET PO SCH (10:00)
[2016-08-13] MEDS: DOCUSATE SODIUM 100 MG CAPSULE PO SCH (10:12)
[2016-08-13] MEDS: INSULIN LISPRO 100 UNIT/ML 3 ML VIAL SUBCUT SCH ×2 (10:12→12:13)
[2016-08-13] MEDS: POLYETHYLENE GLYCOL 3350 POWDER 17 GM/1 PACKET PO SCH (10:12)
--- NOTE | 2016-08-13 10:52 | PDOC TRANSFER SUMMARY ---
General - Admit/Disc Date/PCP Admission Date/Primary Care Provider: 08/04/16 23:47 SUDEEP CHEUNG Discharge Date: 08/13/16 - Discharge Diagnosis (1) CHF exacerbation Is this a current diagnosis for this admission?: Yes (2) Osteomyelitis of right foot Is this a current diagnosis for this admission?: Yes (3) History of MRSA infection Is this a current diagnosis for this admission?: Yes (4) Hyperlipidemia Is this a current diagnosis for this admission?: Yes (5) Hypertension Is this a current diagnosis for this admission?: Yes (6) Prostate cancer Is this a current diagnosis for this admission?: Yes (7) Vitamin D deficiency Is this a current diagnosis for this admission?: Yes (8) Anemia Is this a current diagnosis for this admission?: Yes (9) Anticoagulated Is this a current diagnosis for this admission?: Yes (10) Atrial fibrillation Is this a current diagnosis for this admission?: Yes (11) COPD (chronic obstructive pulmonary disease) Is this a current diagnosis for this admission?: Yes (12) Chronic kidney disease (CKD) Is this a current diagnosis for this admission?: Yes (13) Diabetes mellitus type 2 in obese Is this a current diagnosis for this admission?: Yes (14) Obstructive sleep apnea Is this a current diagnosis for this admission?: Yes - Additional Information Resuscitation Status: Full Code Discharge Diet: Cardiac, Diabetic Discharge Activity: Activity As Tolerated Home Medications: Apixaban [Eliquis 5 mg Tablet] 5 mg PO Q12 07/03/16 B Complex & C No.20/Folic Acid [Renal Caps Softgel] 1 cap PO DAILY 07/03/16 Ergocalciferol (Vitamin D2) [Vitamin D2] 50,000 units PO ABDALLA 07/03/16 Ferrous Sulfate [Feosol 325 mg Tablet] 325 mg PO BID 07/03/16 Isosorbide Mononitrate [Imdur 30 mg Tablet.er] 30 mg PO DAILY 07/03/16 Pantoprazole Sodium [Protonix] 40 mg PO DAILY 07/03/16 Tiotropium [place] [Spiriva Handihaler 18 mcg/dose (30 Dose)] 1 cap IH DAILY 05/09 Furosemide [Lasix 40 mg Tablet] 40 mg PO DAILY #0 tablet 07/24/16 Hydralazine HCl [Apresoline 50 mg Tablet] 100 mg PO Q8 #0 tablet 07/24/16 Polyethylene Glycol 3350 [Miralax Powder 17 gm/Packet] 17 gm PO DAILY #0 powd.pack 07/24/16 Acetaminophen [Tylenol 325 mg Tablet] 650 mg PO Q4HP PRN tablet 08/13/16 Amlodipine Besylate [Norvasc 10 mg Tablet] 10 mg PO DAILY tablet 08/13/16 Aspirin [Adult Low Dose Aspirin EC] 81 mg PO DAILY #30 tablet. 08/13/16 Docusate Sodium [Colace 100 mg Capsule] 100 mg PO BID capsule 08/13/16 Doxazosin Mesylate [Cardura 4 mg Tablet] 4 mg PO QHS tablet 08/13/16 Epoetin Ernesto [Procrit Inj 20,000 Unit/1 ml Vial (Renal)] 20,000 unit SUBCUT Q7D ml 08/13/16 Insulin Glargine,Hum.rec.anlog [Lantus] 20 units SQ QHS #0 08/13/16 Insulin Lispro [Humalog Insulin (Lispro) 100 unit/mL] 0 - 12 unit SUBCUT ACHSP PRN unit 08/13/16 Levalbuterol HCl [Xopenex Neb 1.25 mg/3 ml Ampul] 1.25 mg NEB RTQ4HP PRN vial.neb 08/13/16 Metoprolol Succinate [Toprol Xl 50 mg Tab.sr] 50 mg PO QHS tab.sr.24h 08/13/16 History of Present Illness Admission Date/PCP: 08/04/16 23:47 SUDEEP CHEUNG History of Present Illness: CHARLA WEBB JR is a 81 year old morbidly obese -English male, with multiple chronic comorbidities, including type I diabetes mellitus, stage III chronic kidney disease, atrial fibrillation, on Eliquis for same, currently undergoing 2-week regimen of ertapenem for osteomyelitis of the right foot, transferred from [facility] after his PICC line came out. Basic labs were drawn, revealing multiple abnormalities. Otherwise, patient has no specific complaint, including nausea vomiting, fever or chills, diarrhea or dysuria, chest or abdominal pain. Hospitalized on the service of his primary care provider July 04 through 06/2016 with discharge diagnoses including osteomyelitis of the right foot, rhabdomyolysis, diabetic ketoacidosis, hypertensive urgency, and acute on chronic diastolic congestive heart failure. Underwent a number of procedures during that hospital stay, including amputation of the right fifth metatarsal. Several week regimen of intravenous antibiotics, including an additional 2 weeks of ertapenem at discharge. Bactrim double strength was also ordered. Copies of the history and physical and discharge summary have been reviewed. Hospital Course Hospital Course: Patient was transferred back to [facility] from [facility] secondary to PICC line falling out. Patient had another week of IV antibiotics left for right foot osteomyelitis. This was to complete on . PICC line was replaced and patient has completed IV antibiotic course for right foot osteomyelitis secondary to MRSA and Proteus species. Antibiotics will be discontinued upon discharge from the hospital. Patient will need continued wet-to-dry dressing changes daily. Monitor for recurrence of infection. Follow-up at the wound clinic. Patient was noted to have acute on chronic kidney injury. Possibly this was secondary to an outpatient Bactrim administration with known chronic kidney disease. Kidney function is now basically around baseline at time of discharge. Patient will need to follow-up with Dr. Gary Samayoa of nephrology. Patient had acute decompensation of congestive heart failure secondary to grade 3 diastolic dysfunction. He was diuresed during hospitalization. He is euvolemic at time of discharge and will be discharged home on oral Lasix, metoprolol. Patient has chronic atrial fibrillation and is on metoprolol for heart rate control. He is on Eliquis for stroke prevention. Patient has ambulatory dysfunction and generalized weakness. He will return to [facility] for ongoing rehabilitation prior to returning home. He normally resides at home alone. Physical Exam Vital Signs: Temp Pulse Resp BP Pulse Ox 98.0 F 59 L 20 139/74 H 100 08/13/16 07:13 08/13/16 10:08/13/16 07:13 08/13/16 10:08/13/16 07:13 Intake & Output 08/12/16 08/13/16 08/14/16 06:59 06:59 06:59 Intake Total 1716 1772 Output Total 4100 0061 Balance -4011 -9987 Weight 115.6 kg 111.5 kg GENERAL: No acute distress HEENT: Conjunctiva clear, nonicteric, moist mucous membranes, no JVD, midline trachea RESPIRATORY: Clear to auscultation bilaterally, no wheezes, no rhonchi CARDIAC: Irregular ABDOMEN: Soft, nondistended, nontender, positive bowel sounds, no rebound, no guarding EXTREMETIES: No edema, cyanosis, clubbing NEUROLOGIC: Alert, oriented to person/place/time, CN's grossly intact, no focal deficits SKIN: Large vascular wounds to lateral plantar aspect of right foot with healthy tissue and no surrounding erythema, no exudate PSYCH: Normal mood, normal affect Results Laboratory Results: 08/10/16 08:40 08/13/16 07:04 08/12/16 08/13/16 09:40 07:04 Sodium 139.0 137.6 Potassium 4.1 4.0 Chloride 92 L 91 L Carbon Dioxide 40 H* 40 H* Anion Gap 7 7 BUN 58 H 60 H Creatinine 2.25 H 2.02 H Est GFR ( Amer) 34 L 39 L Est GFR (Non-Af Amer) 28 L 32 L Glucose 128 H 94 Calcium 9.1 8.8 Magnesium 2.0 Labs- Last Values WBC 7.5 10^3/uL (4.0-10.5) 08/10/16 08:40 RBC 3.40 10^6/uL (4.35-5.55) L 08/10/16 08:40 Hgb 8.8 g/dL (13.5-17.0) L 08/10/16 08:40 Hct 27.9 % (37.9-51.0) L 08/10/16 08:40 MCV 82 fl (80-97) 08/10/16 08:40 MCH 25.8 pg (27.0-33.4) L 08/10/16 08:40 MCHC 31.5 g/dL (32.0-36.0) L 08/10/16 08:40 RDW 18.9 % (11.5-14.0) H 08/10/16 08:40 Plt Count 235 10^3/uL (150-450) 08/10/16 08:40 Seg Neutrophils % 87.7 % (42-78) H 08/10/16 08:40 Lymphocytes % 5.8 % (13-45) L 08/10/16 08:40 Monocytes % 5.6 % (3-13) 08/10/16 08:40 Eosinophils % 0.0 % (0-6) 08/10/16 08:40 Basophils % 0.9 % (0-2) 08/10/16 08:40 Absolute Neutrophils 6.6 10^3/uL (1.7-8.2) 08/10/16 08:40 Absolute Lymphocytes 0.4 10^3/uL (0.5-4.7) L 08/10/16 08:40 Absolute Monocytes 0.4 10^3/uL (0.1-1.4) 08/10/16 08:40 Absolute Eosinophils 0.0 10^3/uL (0.0-0.6) 08/10/16 08:40 Absolute Basophils 0.1 10^3/uL (0.0-0.2) 08/10/16 08:40 Retic Count (auto) 3.55 % (0.66-2.85) H 08/06/16 04:51 Absolute Retic 0.114 10^6/uL (0.028-0.122) 08/06/16 04:51 PT 17.5 SEC (11.4-15.4) H 08/04/16 20:01 INR 1.39 08/04/16 20:01 APTT 48.9 SEC (23.5-35.8) H 08/04/16 20:01 Carbonic Acid 1.33 mmol/L (1.05-1.35) 08/06/16 19:47 HCO3/H2CO3 Ratio 19:1 08/06/16 19:47 ABG pH 7.39 (7.35-7.45) 08/06/16 19:47 ABG pCO2 44.3 mmHg (35-45) 08/06/16 19:47 ABG pO2 80.5 mmHg (80-100) 08/06/16 19:47 ABG HCO3 26.5 mmol/L (20-26) H 08/06/16 19:47 ABG Total CO2 27.8 mmol/L (23-27) H 08/06/16 19:47 ABG O2 Saturation 95.8 % (94-98) 08/06/16 19:47 ABG Base Excess 1.3 mmol/L 08/06/16 19:47 FiO2 100% 08/06/16 19:47 Sodium 137.6 mmol/L (137-145) 08/13/16 07:04 Potassium 4.0 mmol/L (3.6-5.0) 08/13/16 07:04 Chloride 91 mmol/L (98-107) L 08/13/16 07:04 Carbon Dioxide 40 mmol/L (22-30) H* 08/13/16 07:04 Anion Gap 7 (5-19) 08/13/16 07:04 BUN 60 mg/dL (7-20) H 08/13/16 07:04 Creatinine 2.02 mg/dL (0.52-1.25) H 08/13/16 07:04 Est GFR ( Amer) 39 (>60) L 08/13/16 07:04 Est GFR (Non-Af Amer) 32 (>60) L 08/13/16 07:04 Glucose 94 mg/dL (75-110) 08/13/16 07:04 POC Glucose 103 mg/dL (70-110) 08/13/16 07:01 Calcium 8.8 mg/dL (8.4-10.2) 08/13/16 07:04 Phosphorus 6.3 mg/dL (2.5-4.5) H 08/09/16 07:20 Magnesium 2.0 mg/dL (1.6-2.3) 08/13/16 07:04 Iron 21 ug/dL (49-181) L 08/06/16 04:51 TIBC 208 ug/dL (250-450) L 08/06/16 04:51 % Saturation 10 % 08/06/16 04:51 Transferrin Cancelled 08/06/16 09:05 Ferritin 222.00 ng/mL (17.9-464.0) 08/06/16 04:51 Total Bilirubin 0.7 mg/dL (0.2-1.3) 08/09/16 07:20 Direct Bilirubin 0.0 mg/dL (0.0-0.3) 08/09/16 07:20 AST 40 U/L (17-59) 08/09/16 07:20 ALT 54 U/L (21-72) 08/09/16 07:20 Alkaline Phosphatase 106 U/L (38-126) 08/09/16 07:20 Total Protein 7.0 g/dL (6.3-8.2) 08/09/16 07:20 Albumin 3.3 g/dL (3.5-5.0) L 08/09/16 07:20 Globulin 4.2 g/dL (2.2-3.9) H 08/06/16 05:49 Albumin/Globulin Ratio 0.6 (0.7-1.7) L 08/06/16 05:49 Prealbumin 11.4 mg/dL (17.6-36.0) L 08/09/16 07:20 Iahoq-5-Jzwvqfvre 0.9 g/dL (0.4-1.0) 08/06/16 05:49 Beta Globulins 1.2 g/dL (0.7-1.3) 08/06/16 05:49 Gamma Globulins 1.7 g/dL (0.4-1.8) 08/06/16 05:49 M-Thai Not Observed g/dL (Not Observed) 08/06/16 05:49 PEP Note Comment (.) 08/06/16 05:49 PEP Interpretation Comment (.) 08/06/16 05:49 Vitamin B12 890.0 pg/mL (239-931) 08/06/16 04:51 Folate 14.80 ng/mL (>2.76) 08/06/16 04:51 PTH Intact 65 pg/mL (15-65) 08/06/16 05:49 Urine Color YELLOW 08/06/16 00:34 Urine Appearance SLIGHTLY-CLOUDY 08/06/16 00:34 Urine pH 5.0 (5.0-9.0) 08/06/16 00:34 Ur Specific [place] 1.011 08/06/16 00:34 Urine Protein 30 mg/dL (NEGATIVE) H 08/06/16 00:34 Urine Glucose (UA) 50 mg/dL (NEGATIVE) H 08/06/16 00:34 Urine Ketones NEGATIVE mg/dL (NEGATIVE) 08/06/16 00:34 Urine Blood NEGATIVE (NEGATIVE) 08/06/16 00:34 Urine Nitrite NEGATIVE (NEGATIVE) 08/06/16 00:34 Urine Bilirubin NEGATIVE (NEGATIVE) 08/06/16 00:34 Urine Urobilinogen NEGATIVE mg/dL (<2.0) 08/06/16 00:34 Ur Leukocyte Esterase NEGATIVE (NEGATIVE) 08/06/16 00:34 Urine WBC (Auto) 1 /HPF 08/06/16 00:34 Urine RBC (Auto) 1 /HPF 08/06/16 00:34 U Hyaline Cast (Auto) 32 /LPF 08/06/16 00:34 Squamous Epi Cells Auto 8 /HPF 08/06/16 00:34 Urine Mucus (Auto) RARE /LPF 08/06/16 00:34 Urine Ascorbic Acid NEGATIVE (NEGATIVE) 08/06/16 00:34 Blood Type B POSITIVE 08/04/16 22:18 Antibody Screen NEGATIVE 08/04/16 22:18 Crossmatch See Detail 08/04/16 22:18 Impressions: Humerus X-Ray 08/04/16 00:00 IMPRESSION: NO SIGNIFICANT RADIOGRAPHIC ABNORMALITY. NO RADIOPAQUE FOREIGN BODY. Guidance Fluoroscopy 08/05/16 00:00 IMPRESSION: SUCCESSFUL PLACEMENT OF A 5 FR DUAL LUMEN 44 CM PICC IN THE left basilic VEIN. Interventional Vascular Procedure 08/05/16 00:00 IMPRESSION: SUCCESSFUL PLACEMENT OF A 5 FR DUAL LUMEN 44 CM PICC IN THE left basilic VEIN. PICC Line Insertion 08/05/16 00:00 IMPRESSION: SUCCESSFUL PLACEMENT OF A 5 FR DUAL LUMEN 44 CM PICC IN THE left basilic VEIN. Renal Ultrasound 08/05/16 00:00 IMPRESSION: No hydronephrosis. Increased echogenicity of the bilateral renal parenchyma, may be seen with medical renal disease. Chest X-Ray 08/09/16 06:00 IMPRESSION: No change in the diffuse bilateral airspace disease compared to Transfer Plan - Disposition Transfer Plan: Wet-to-dry dressing changes daily to right foot wound until follow-up at the wound clinic. Resume home CPAP. - Time Spent with Patient Time spent with patient: Greater than 30 Minutes
[2016-08-13] MEDS ORDERED: NORMAL SALINE 1000 ML 1,000 ML IV PRN (13:43)
--- NOTE | 2016-08-13 14:12 | PDOC PROGRESS REPORT ---
Subjective Progress Note for:: 08/13/16 Subjective:: Seen on rounds today. Overall he is feeling better. His breathing is almost back to baseline. He denies any history of chest pain. Labs were reviewed with the patient shows improving renal numbers but worsening metabolic alkalosis. Physical Exam Vital Signs: Temp Pulse Resp BP Pulse Ox 97.5 F 59 L 18 159/53 H 100 08/13/16 12:06 08/13/16 12:06 08/13/16 12:06 08/13/16 12:06 08/13/16 12:06 Intake & Output 08/12/16 08/13/16 08/14/16 06:59 06:59 06:59 Intake Total 1716 1772 400 Output Total 4100 3000 400 Balance -2384 -1228 0 Weight 115.6 kg 111.5 kg General appearance: PRESENT: no acute distress Cardiovascular exam: PRESENT: irregular rhythm, +S1, +S2 GI/Abdominal exam: PRESENT: distended, soft. ABSENT: firm, guarding, mass, tenderness Extremities exam: ABSENT: pedal edema Skin exam: PRESENT: dry, mottled, rash Results Laboratory Results: 08/10/16 08:40 08/13/16 07:04 08/13/16 07:04 Sodium 137.6 Potassium 4.0 Chloride 91 L Carbon Dioxide 40 H* Anion Gap 7 BUN 60 H Creatinine 2.02 H Est GFR ( Amer) 39 L Est GFR (Non-Af Amer) 32 L Glucose 94 Calcium 8.8 Magnesium 2.0 Impressions: Humerus X-Ray 08/04/16 00:00 IMPRESSION: NO SIGNIFICANT RADIOGRAPHIC ABNORMALITY. NO RADIOPAQUE FOREIGN BODY. Guidance Fluoroscopy 08/05/16 00:00 IMPRESSION: SUCCESSFUL PLACEMENT OF A 5 FR DUAL LUMEN 44 CM PICC IN THE left basilic VEIN. Interventional Vascular Procedure 08/05/16 00:00 IMPRESSION: SUCCESSFUL PLACEMENT OF A 5 FR DUAL LUMEN 44 CM PICC IN THE left basilic VEIN. PICC Line Insertion 08/05/16 00:00 IMPRESSION: SUCCESSFUL PLACEMENT OF A 5 FR DUAL LUMEN 44 CM PICC IN THE left basilic VEIN. Renal Ultrasound 08/05/16 00:00 IMPRESSION: No hydronephrosis. Increased echogenicity of the bilateral renal parenchyma, may be seen with medical renal disease. Chest X-Ray 08/09/16 06:00 IMPRESSION: No change in the diffuse bilateral airspace disease compared to Assessment & Plan - Diagnosis (1) Acute on chronic renal failure Is this a current diagnosis for this admission?: YesPlan: Nonoliguric. Stable renal functions currently. Continue present medications. Even though his renal numbers are better is clinically on the dry side. Would like to do a gentle hydration for at least half a liter. Discussed with the treating nurse. (2) Anemia of chronic disease Is this a current diagnosis for this admission?: YesPlan: Needs to continue getting erythropoietin initially q. weekly and then then titrate accordingly. (3) Atrial fibrillation Qualifiers: Atrial fibrillation type: chronic Qualified Code(s): I48.2 - Chronic atrial fibrillation Is this a current diagnosis for this admission?: Yes (4) Diastolic CHF Qualifiers: Congestive heart failure chronicity: chronic Qualified Code(s): I50.32 - Chronic diastolic (congestive) heart failure Is this a current diagnosis for this admission?: Yes (5) Fluid overload Qualifiers: Hypervolemia type: unspecified Qualified Code(s): E87.70 - Fluid overload, unspecified Is this a current diagnosis for this admission?: Yes (6) Hyperkalemia Is this a current diagnosis for this admission?: Yes (7) Acute worsening of stage 3 chronic kidney disease Is this a current diagnosis for this admission?: Yes (8) Acute on chronic diastolic congestive heart failure Plan: Much improved. Continue on diuretics starting a couple of days post discharge. (10) History of MRSA infection Is this a current diagnosis for this admission?: Yes (11) Hypertension Qualifiers: Hypertension type: essential hypertension Qualified Code(s): I10 - Essential (primary) hypertension Is this a current diagnosis for this admission?: Yes (12) Morbid obesity Qualifiers: Obesity type: with alveolar hypoventilation Qualified Code(s): E66.2 - Morbid (severe) obesity with alveolar hypoventilation Is this a current diagnosis for this admission?: Yes (13) Osteomyelitis of right foot Is this a current diagnosis for this admission?: YesPlan: Plan as per surgeon/hospitalist (14) Atrial fibrillation Qualifiers: Atrial fibrillation type: unspecified Qualified Code(s): I48.91 - Unspecified atrial fibrillation Is this a current diagnosis for this admission?: Yes (15) Obstructive sleep apnea Is this a current diagnosis for this admission?: Yes
[2016-08-13 14:47] VITALS: BP 139/74
== END 2016-08-13 17:09 | DRG 682 ==
LOC: ER 16:04 → UNDOADMIN 22:18 → EH 22:18 → 3W 23:47 → EH 08-05 01:55 → 3W 08-05 01:55
PROVIDERS: ADMIT Family Medicine; ATTEND Family Medicine
PROC: 02HV33Z Insertion of Infusion Device into Superior Vena Cava, Percutaneous Approach (ICD-10-PCS; principal; 2016-08-05)
PROC: B518ZZA Fluoroscopy of Superior Vena Cava, Guidance (ICD-10-PCS; 2016-08-05)
PROC: B548ZZA Ultrasonography of Superior Vena Cava, Guidance (ICD-10-PCS; 2016-08-05)
DX: N17.9 Acute kidney failure, unspecified (principal); I50.33 Acute on chronic diastolic (congestive) heart failure; M86.171 Other acute osteomyelitis, right ankle and foot; D62 Acute posthemorrhagic anemia; E66.2 Morbid (severe) obesity with alveolar hypoventilation; E78.5 Hyperlipidemia, unspecified; E55.9 Vitamin D deficiency, unspecified; J44.9 Chronic obstructive pulmonary disease, unspecified; I48.2 Chronic atrial fibrillation; E11.22 Type 2 diabetes mellitus with diabetic chronic kidney disease; I12.9 Hypertensive chronic kidney disease with stage 1 through stage 4 chronic kidney disease, or unspecified chronic kidney disease; N18.3 Chronic kidney disease, stage 3 (moderate); D63.1 Anemia in chronic kidney disease; B96.4 Proteus (mirabilis) (morganii) as the cause of diseases classified elsewhere; F32.9 Major depressive disorder, single episode, unspecified; E87.5 Hyperkalemia; E11.51 Type 2 diabetes mellitus with diabetic peripheral angiopathy without gangrene; I87.8 Other specified disorders of veins; I27.2 Other secondary pulmonary hypertension; I16.0 Hypertensive urgency; N40.1 Benign prostatic hyperplasia with lower urinary tract symptoms; D50.9 Iron deficiency anemia, unspecified; Z87.891 Personal history of nicotine dependence; Z68.34 Body mass index [BMI] 34.0-34.9, adult; Z79.01 Long term (current) use of anticoagulants; Z86.14 Personal history of Methicillin resistant Staphylococcus aureus infection; Z85.46 Personal history of malignant neoplasm of prostate; Z79.4 Long term (current) use of insulin; Z79.899 Other long term (current) drug therapy; Z79.2 Long term (current) use of antibiotics; Z60.2 Problems related to living alone; Z89.421 Acquired absence of other right toe(s); Z84.1 Family history of disorders of kidney and ureter; Z82.49 Family history of ischemic heart disease and other diseases of the circulatory system; Z82.3 Family history of stroke; Z83.3 Family history of diabetes mellitus
CPT/HCPCS: 36415; 36430; 36569; 36600; 71010; 76770; 76937; 77001; 80048; 80053; 81001; 82607; 82728; 82746; 82803; 82962; 83540; 83550; 83735; 83970; 84100; 84134; 84165; 84466; 85025; 85027; 85045; 85610; 85730; 86850; 86900; 86901; 86920; 93005; 93010; 94640; 94660; 96365; 99285; G8978-GP; G8979-GP; J0360; J0610; J1335; J1580; J1642; J1815; J1940; J2020; J2920; J2930; J3490; J7512; J7620; P9016; Q0138; Q4081

== ENCOUNTER 2016-09-13 15:39 | Inpatient (IN) | payer MEDICARE, OTHER ==
--- NOTE | 2016-09-13 16:43 | ER Document Report ---
ED General - General Chief Complaint: Shortness Of Breath Stated Complaint: SHORTNESS OF BREATH Mode of Arrival: Medic Information source: Patient Notes: 81-year-old male presents with complaints of shortness breath difficulty breathing. Patient notes symptoms of been ongoing for a few days denies any fevers or chills notes when he lays flat he has difficulty breathing. Patient has bilateral lower extremity edema notes this happens on and off TRAVEL OUTSIDE OF THE [place] IN LAST 30 DAYS: No - HPI Onset: Other Onset/Duration: Persistent Quality of pain: No pain Severity: Mild Pain Level: Denies Associated symptoms: Nonproductive cough, Shortness of breath Exacerbated by: Supine, Walking Relieved by: Denies Similar symptoms previously: Yes Recently seen / treated by doctor: Yes - Related Data Allergies/Adverse Reactions: PPD black rubber mix Allergy (Verified 08/05/16 00:06) Past Medical History - Social History Smoking Status: Never Smoker Cigarette use (# per day): No Chew tobacco use (# tins/day): No Smoking Education Provided: No Frequency of alcohol use: None Family History: CAD, CVA, DM Patient has suicidal ideation: No Patient has homicidal ideation: No - Past Medical History Cardiac Medical History: Reports: Hx Atrial Fibrillation, Hx Congestive Heart Failure - Diastolic, Hx Hypercholesterolemia, Hx Hypertension Denies: Hx DVT, Hx Heart Attack, Hx Pulmonary Embolism Pulmonary Medical History: Reports: Hx COPD, Hx Sleep Apnea Neurological Medical History: Denies: Hx Seizures Endocrine Medical History: Reports: Hx Diabetes Mellitus Type 1, Hx Diabetes Mellitus Type 2. 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 Denies: Hx Adenoidectomy - Immunizations Hx Diphtheria, Pertussis, Tetanus Vaccination: Yes Hx Pneumococcal Vaccination: 03/23/15 Review of Systems - Review of Systems Notes: REVIEW OF SYSTEMS: CONSTITUTIONAL : Denies fever, chills, or sweats. Denies recent illness. EENT: Denies eye, ear, throat, or mouth pain or symptoms. Denies nasal or sinus congestion or discharge. Denies throat, tongue, or mouth swelling or difficulty swallowing. CARDIOVASCULAR: Denies chest pain. Denies palpitations or racing or irregular heart beat. Denies ankle edema. RESPIRATORY: Admits shortness breath difficulty breathing GASTROINTESTINAL: Denies abdominal pain or distention. Denies nausea, vomiting , or diarrhea. Denies blood in vomitus, stools, or per rectum. Denies black, tarry stools. Denies constipation. GENITOURINARY: Denies difficulty urinating, painful urination, burning, frequency, blood in urine, or discharge. MUSCULOSKELETAL: Admits peripheral edema SKIN: Denies rash, lesions or sores. HEMATOLOGIC : Denies easy bruising or bleeding. LYMPHATIC: Denies swollen, enlarged glands. NEUROLOGICAL: Denies confusion or altered mental status. Denies passing out or loss of consciousness. Denies dizziness or lightheadedness. Denies headache. Denies weakness or paralysis or loss of use of either side. Denies problems with gait or speech. Denies sensory loss, numbness, or tingling. Denies seizures. PSYCHIATRIC: Denies anxiety or stress. Denies depression, suicidal ideation, or homicidal ideation. ALL OTHER SYSTEMS REVIEWED AND NEGATIVE. Dictation was performed using [employer] voice recognition software PHYSICAL EXAMINATION: GENERAL: Well-appearing, well-nourished and in mild respiratory distress HEAD: Atraumatic, normocephalic. EYES: Pupils equal round and reactive to light, extraocular movements intact, sclera anicteric, conjunctiva are normal. ENT: Nares patent, oropharynx clear without exudates. Moist mucous membranes. NECK: Normal range of motion, supple without lymphadenopathy LUNGS: Rhonchi noted all throughout HEART: Regular rate and rhythm without murmurs ABDOMEN: Soft, nontender, nondistended abdomen. No guarding, no rebound. No masses appreciated. Musculoskeletal: Bilateral pitting edema +3 NEUROLOGICAL: Cranial nerves grossly intact. Normal speech, normal gait. Normal sensory, motor exams PSYCH: Normal mood, normal affect. SKIN: Warm, Dry, normal turgor, no rashes or lesions noted. Physical Exam - Vital signs Vitals: Pulse Ox 94 09/13/16 16:00 Course - Re-evaluation Re-evalutation: 09/13/16 16:46 Patient has probable CHF exacerbation laboratory imaging is pending 09/13/16 17:48 dr thad szymanski 09/13/16 18:14 Thad states to admit to hospitalist - Vital Signs Vital signs: Temp Pulse Resp BP Pulse Ox 94 09/13/16 16:00 - Laboratory Result Diagrams: 09/13/16 16:15 09/13/16 16:15 Laboratory results interpreted by me: 09/13/16 09/13/16 09/13/16 16:15 16:15 16:15 RBC 3.55 L Hgb 8.7 L Hct 28.0 L MCV 79 L MCH 24.4 L MCHC 30.9 L RDW 19.4 H Seg Neutrophils % 81.3 H Lymphocytes % 11.3 L BUN 21 H Creatinine 1.91 H Est GFR ( Amer) 41 L Est GFR (Non-Af Amer) 34 L Glucose 239 H NT-Pro-B Natriuret Pep 8460 H Albumin 3.2 L Urine Protein Urine Glucose (UA) Ur Leukocyte Esterase 09/13/16 16:40 RBC Hgb Hct MCV MCH MCHC RDW Seg Neutrophils % Lymphocytes % BUN Creatinine Est GFR ( Amer) Est GFR (Non-Af Amer) Glucose NT-Pro-B Natriuret Pep Albumin Urine Protein 100 H Urine Glucose (UA) 50 H Ur Leukocyte Esterase LARGE H Discharge - Discharge Clinical Impression: Acute hypoxemic respiratory failure COPD (chronic obstructive pulmonary disease) Qualifiers: COPD type: unspecified COPD Qualified Code(s): J44.9 - Chronic obstructive pulmonary disease, unspecified Osteomyelitis of right foot Qualifiers: Osteomyelitis type: other chronic hematogenous Qualified Code(s): M86.571 - Other chronic hematogenous osteomyelitis, right ankle and foot Condition: Stable Disposition: ADMITTED INPATIENT Admitting Provider: Hospitalist Unit Admitted: Telemetry
[2016-09-13 16:57] LABS: ABSOLUTE EOSINOPHILS # (AUTO) 0.1 10^3/uL (0.0-0.6); ABSOLUTE LYMPHOCYTES (AUTO) 0.9 10^3/uL (0.5-4.7); ABSOLUTE MONOCYTES (AUTO) 0.5 10^3/uL (0.1-1.4); ABSOLUTE NEUT (AUTO) 6.8 10^3/uL (1.7-8.2); BASOPHILS % (AUTO) 0.6 % (0-2); EOSINOPHILS % (AUTO) 0.6 % (0-6); HEMOGLOBIN 8.7 g/dL (13.5-17.0); HGB HCT DIFFERENCE -1.9; LYMPHOCYTES % (AUTO) 11.3 % (13-45); MEAN CORPUSCULAR HEMOGLOBIN 24.4 pg (27.0-33.4); MEAN CORPUSCULAR HGB CONC 30.9 g/dL (32.0-36.0); MEAN CORPUSCULAR VOLUME 79 fl (80-97); MONOCYTES % (AUTO) 6.2 % (3-13); RED BLOOD COUNT 3.55 10^6/uL (4.35-5.55); RED CELL DISTRIBUTION WIDTH 19.4 % (11.5-14.0); SEGMENTED NEUTROPHILS % (AUTO) 81.3 % (42-78); WHITE BLOOD COUNT 8.4 10^3/uL (4.0-10.5)
[2016-09-13 17:27] LABS: ALANINE AMINOTRANSFERASE 27 U/L (21-72); ALBUMIN 3.2 g/dL (3.5-5.0); ALKALINE PHOSPHATASE 118 U/L (38-126); ANION GAP 12 (5-19); ASPARTATE AMINO TRANSFERASE 21 U/L (17-59); BILIRUBIN,DIRECT 0.4 mg/dL (0.0-0.4); BILIRUBIN,TOTAL 0.6 mg/dL (0.2-1.3); BLOOD UREA NITROGEN 21 mg/dL (7-20); CALCIUM 8.9 mg/dL (8.4-10.2); CARBON DIOXIDE 29 mmol/L (22-30); CHLORIDE 100 mmol/L (98-107); CREATINE KINASE 63 U/L (55-170); CREATININE RESULT 1.91 mg/dL (0.52-1.25); GLUCOSE 239 mg/dL (75-110); POTASSIUM 4.7 mmol/L (3.6-5.0); SODIUM 141.4 mmol/L (137-145); TOTAL PROTEIN 7.3 g/dL (6.3-8.2)
[2016-09-13 17:39] LABS: CREATINE KINASE MB 1.6 ng/mL (<4.55)
[2016-09-13 17:45] LABS: APPEARANCE,URINE TURBID; BILIRUBIN,URINE NEGATIVE (NEGATIVE); GLUCOSE, URINE 50 mg/dL (NEGATIVE); KETONES,URINE NEGATIVE (NEGATIVE); LEUKOCYTE ESTERASE,URINE LARGE (NEGATIVE); NITRITE,URINE NEGATIVE (NEGATIVE); PROTEIN,URINE 100 mg/dL (NEGATIVE); URINE SPECIFIC GRAVITY 1.009; UROBILINOGEN,URINE NEGATIVE mg/dL (<2.0)
[2016-09-13] MEDS ORDERED: LEVOFLOXACIN 750 MG/D5W RTU 150 ML IV ONE (17:47)
[2016-09-13 17:51] LABS: TROPONIN I 0.038 ng/mL
--- NOTE | 2016-09-13 18:15 | EKG REPORT ---
SEVERITY:- ABNORMAL ECG - A-FLUTTER W/ PREDOM 3:1 AV BLOCK, A-RATE 230 : Confirmed by: Suhail Kaufman MD 13-Sep-2016 18:14:33
[2016-09-13] MEDS ORDERED: GLUCAGON,HUMAN RECOMB 1 MG INJ IM PRN (21:54)
[2016-09-13] MEDS ORDERED: DEXTROSE 40% GEL 15 GM TUBE PO PRN ×2 (21:54)
[2016-09-13] MEDS ORDERED: DEXTROSE 50%-WATER 25 GM/50 ML DISP.SYRIN IV PRN ×2 (21:54)
[2016-09-13] MEDS ORDERED: ALBUTEROL SULFATE 0.083% NEB 2.5 MG/3 ML AMPUL NEB PRN (21:56)
[2016-09-13] MEDS ORDERED: GUAIFENESIN SYRP 200 MG/10 ML UDC PO PRN (21:56)
[2016-09-13] MEDS ORDERED: ACETAMINOPHEN 325 MG TABLET PO PRN ×2 (21:56→22:11)
[2016-09-13] MEDS ORDERED: PHARMACY COMMUNICATION ORDER MC NR (22:00)
[2016-09-13] MEDS ORDERED: PREDNISONE 20 MG TABLET PO ONE ×2 (22:15)
[2016-09-13] MEDS ORDERED: FUROSEMIDE INJ/PF 40 MG/4 ML SDV IV ONE (22:15)
--- NOTE | 2016-09-13 22:26 | PDOC H&P ---
History of Present Illness Admission Date/PCP: 09/13/16 18:[address] Samayoa Patient complains of: Short of breath History of Present Illness: CHARLA EWBB JR is a 81 year old -[place] male, with multiple chronic comorbidities, including diastolic congestive heart failure, insulin-dependent diabetes mellitus, atrial fibrillation, on Eliquis for same, stage III chronic kidney disease, chronic open wound of right foot, currently undergoing daily dressing changes, who presents to the emergency room for evaluation of above complaint. Patient has been discussed with daytime hospitalist who discussed the patient with emergency room physician who evaluated the patient. Several day history of slowly progressive shortness of breath, in particular over the last 24 hours. No fever or chills, nausea vomiting, diarrhea or dysuria. No chest or abdominal pain. Mild dry cough. Hospitalized on our service August 04 of the of this year with final diagnoses including diastolic congestive heart failure exacerbation, osteomyelitis of the right foot. History and physical and discharge summary have been reviewed.. Laboratory results are listed in [facility] and are reviewed. X-ray summary results are listed below, with full report(s) reviewed. . EKG's reviewed. And compared to a tracing from 08/04/2016. Social history/personal habits: . Retired. No children. Currently in correction rehabilitation, due to his underlying right foot wound. No illicit drug use. No tobacco or alcohol use for many years. Allergies/adverse reactions are listed in [facility] and are reviewed. Home medications are reviewed and have been reconciled by pharmacy services representative in [facility]. Home medications initially autopopulated into [facility] may not accurately reflect patient's true medications, dosages, and/or frequencies. REVIEW OF SYSTEMS: Constitutional: No fever or chills. Eyes: Wears glasses. ENT: No swallowing problems or complaints. No hearing problems or complaints. Pulmonary: See history and present illness. Cardiovascular: No current complaints, including chest pain. Gastrointestinal: No current complaints, including nausea or vomiting. Skin: Chronic right foot wound. Hematologic: Easy bruising. Neurologic: No current complaints, including numbness or tingling. Musculoskeletal: Chronic Pain from right foot wound. Psychiatric: Mild depression; denies suicidal or homicidal ideation. Endocrine: No current complaints, including polyuria. Genitourinary: No current complaints, including dysuria. PHYSICAL EXAMINATION: Neither height nor weight are recorded on the chart. Temperature not recorded on the chart. Skin feels normothermic. Blood pressure 151/81. Pulse 80 and regular. 96% saturation on 2 L oxygen per nasal cannula. Respirations are 24 and unlabored. Obese otherwise well-developed -[place] male appearing a bit younger than his stated age. Pleasant awake alert and cooperative. Mildly anxious. Mildly tachypnea. Otherwise, no obvious distress. No agitation. Skin is warm and dry. No grossly obvious evidence of rash in areas of skin examined. No subcutaneous nodules palpated. ENT: Hearing grossly normal to normal conversation. Tongue midline on protrusion pink and slightly moist. Eyes: No scleral icterus. Pupils equal and reactive to light at 4 mm. Galliano conjunctivae. Neck is supple and nontender to gentle active range of motion and palpation. Midline trachea. No palpable thyroid nodule mass enlargement or tenderness. Lymphatic: No palpable cervical or clavicular nodes. Neck and lymphatic exams limited by patient body habitus. Psychiatric: Reasonable insight into acute and chronic medical issues. Oriented to time location and why here. Lungs: Auscultation reveals clear and equal breath sounds bilaterally. No use of accessory respiratory muscles. Cardiovascular: Heart regular rate and rhythm, without gallop murmur or rub. No carotid or abdominal aortic bruits. Bilateral nonpitting moderate calf ankle and pedal edema. Faintly palpable dorsalis pedis pulses. Abdomen: soft, somewhat obese, nontender with positive bowel sounds. Unable to adequately evaluate abdomen for masses or organomegaly due to body habitus. Extremities: Feet are warm and dry. No calf tenderness to compression. Gentle manipulation of lower extremities reveals mild to moderate chronic decreased range of motion due to at least in part to soft tissue swelling, according to patient. Clean dry and intact opaque adherent dressing is present over the lateral aspect of his distal right foot. Also covers lateral distal portion of plantar surface. This is left in place. Neurologic: Moves upper extremities grossly normally. Patellar reflexes absent. Absent Babinski. Light touch is intact at feet. Dorsiflexion and plantarflexion of feet 5 / 5 and symmetric. Past Medical History Cardiac Medical History: Reports: Atrial Fibrillation, Congestive Heart Failure - Diastolic, Hyperlipidema, Hypertension Denies: DVT, Myocardial Infarction, Pulmonary Embolism Pulmonary Medical History: Reports: Chronic Obstructive Pulmonary Disease (COPD) , Sleep Apnea Neurological Medical History: Denies: Seizures Endocrine Medical History: Reports: Diabetes Mellitus Type 1, Diabetes Mellitus Type 2 Denies: Hyperthyroidism, Hypothyroidism GI Medical History: Denies: Cirrhosis, Gastroesophageal Reflux Disease, Hepatitis Musculoskeltal Medical History: Denies: Arthritis Psychiatric Medical History: Reports: Depression Hematology: Reports: Anemia Infectious Medical History: Reports: Methicillin-Resistant Staph Aureus Past Surgical History Past Surgical History: Reports: Orthopedic Surgery - Right fifth metatarsal amputation, Other - Nasal surgery many years ago while in the [employer]. Social History Information Source: Patient, Emergency Med Personnel, [facility] Records Lives with: [facility] Smoking Status: Never Smoker Frequency of Alcohol Use: None Hx Recreational Drug Use: No Drugs: None Hx Prescription Drug Abuse: No - Advance Directive Resuscitation Status: Full Code Surrogate healthcare decision maker:: Nephew Eb Cotoer Family History Family History: CAD, CVA, DM Parental Family History Reviewed: Yes Children Family History Reviewed: NA Sibling(s) Family History Reviewed.: Yes Medication/Allergy Home Medications: RX: Apixaban [Eliquis 5 mg Tablet] 5 mg PO Q12 07/03/16 RX: B Complex & C No.20/Folic Acid [Renal Caps Softgel] 1 cap PO DAILY 07/03/16 RX: Ergocalciferol (Vitamin D2) [Vitamin D2] 50,000 units PO ABDALLA 07/03/16 RX: Ferrous Sulfate [Feosol 325 mg Tablet] 325 mg PO BID 07/03/16 RX: Isosorbide Mononitrate [Imdur 30 mg Tablet.er] 30 mg PO DAILY 07/03/16 RX: Pantoprazole Sodium [Protonix] 40 mg PO DAILY 07/03/16 RX: Tiotropium [place] [Spiriva Handihaler 18 mcg/dose (30 Dose)] 1 cap IH DAILY 07/03/16 RX: Furosemide [Lasix 40 mg Tablet] 40 mg PO DAILY #0 tablet 07/24/16 RX: Hydralazine HCl [Apresoline 50 mg Tablet] 100 mg PO Q8 #0 tablet 07/24/16 RX: Polyethylene Glycol 3350 [Miralax Powder 17 gm/Packet] 17 gm PO DAILY #0 powd.pack 07/24/16 RX: Acetaminophen [Tylenol 325 mg Tablet] 650 mg PO Q4HP PRN tablet 08/13/16 RX: Amlodipine Besylate [Norvasc 10 mg Tablet] 10 mg PO DAILY tablet 08/13/16 RX: Aspirin [Adult Low Dose Aspirin EC] 81 mg PO DAILY #30 tablet. 08/13/16 RX: Docusate Sodium [Colace 100 mg Capsule] 100 mg PO BID capsule 08/13/16 RX: Doxazosin Mesylate [Cardura 4 mg Tablet] 4 mg PO QHS tablet 08/13/16 RX: Epoetin Ernesto [Procrit Inj 20,000 Unit/1 ml Vial (Renal)] 20,000 unit SUBCUT Q7D ml 08/13/16 RX: Insulin Lispro [Humalog Insulin (Lispro) 100 unit/mL] 0 - 12 unit SUBCUT ACHSP PRN unit 08/13/16 RX: Levalbuterol HCl [Xopenex Neb 1.25 mg/3 ml Ampul] 1.25 mg NEB RTQ4HP PRN vial.neb 08/13/16 RX: Metoprolol Succinate [Toprol Xl 50 mg Tab.sr] 50 mg PO QHS tab.sr.24h 08/13 Imipenem/Cilastatin Sodium [Imipenem-Cilastatin 500 mg Vl] 500 mg IV Q6H #120 vial 09/17/16 RX: Insulin Glargine,Hum.rec.anlog [Lantus Insulin 100 Unit/mL] 30 unit SUBCUT QHS #1 insuln.pen 09/17/16 RX: Linezolid [Zyvox RTU 600 mg/300 ml Premixed] 600 mg IV Q12 #60 rtupb RX: Prednisone [Deltasone 20 mg Tablet] 40 mg PO DAILY #30 tablet 09/17/16 Allergies/Adverse Reactions: PPD black rubber mix Allergy (Verified 08/05/16 00:06) Physical Exam Vital Signs: Temp Pulse Resp BP Pulse Ox 20 168/82 H 91 L 09/13/16 21:02 09/13/16 21:02 09/13/16 21:02 Intake & Output 09/12/16 09/13/16 09/14/16 00:59 00:59 00:59 Output Total 400 Balance -400 Results Impressions: Chest X-Ray 09/13/16 16:00 IMPRESSION: PROBABLE ASYMMETRIC PULMONARY EDEMA. UNDERLYING PNEUMONIA ALSO POSSIBLE. Assessment & Plan - Diagnosis (1) UTI (urinary tract infection) Qualifiers: Urinary tract infection type: site unspecified Is this a current diagnosis for this admission?: YesPlan: Blood and urine cultures. IV antibiotics. (2) Abnormal chest xray Is this a current diagnosis for this admission?: YesPlan: Pneumonia/copd exacerbation and/or congestive heart failure exacerbation. IV Lasix tonight and tomorrow. Incentive spirometry twice a day. Scheduled DuoNeb's. PRN albuterol nebs daily prednisone. Prevacid for gastritis prophylaxis. Antibiotics will consist of intravenous Zithromax, along with cefepime. Pharmacy to assist with dosing. Patient is a full code. I have strongly encouraged patient not to get out of bed without notifying staff , , to avoid a fall with injury. Knee high SCDs for DVT prophylaxis, left lower extremity only. With patient on Eliquis, no need for Lovenox or heparin. Impression and plans were discussed with patient, who concurs. Time spent in evaluation and management of patient: 72 minutes. (3) Atrial fibrillation Qualifiers: Atrial fibrillation type: chronic Qualified Code(s): I48.2 - Chronic atrial fibrillation Is this a current diagnosis for this admission?: YesPlan: Resume home medications as appropriate once these have been determined and reviewed. (4) Acute on chronic diastolic (congestive) heart failure Is this a current diagnosis for this admission?: Yes (5) Diabetes mellitus type 1 with complications Is this a current diagnosis for this admission?: YesPlan: Diabetic cardiac prerenal diet. Accu-Cheks with appropriate sliding scale coverage.Resume home medications as appropriate once these have been determined and reviewed. (6) History of MRSA infection Is this a current diagnosis for this admission?: YesPlan: Contact precautions. (7) Anticoagulated Plan: Resume home medications as appropriate once these have been determined and reviewed. (8) Obstructive sleep apnea Is this a current diagnosis for this admission?: YesPlan: CPAP. (9) Unspecified open wound, right foot, initial encounter Qualifiers: Encounter type: initial encounter Qualified Code(s): S91.301A - Unspecified open wound, right foot, initial encounter Is this a current diagnosis for this admission?: YesPlan: Surgery consult. - Inpatient Certification Based on my medical assessment, after consideration of the patient's comorbidities, presenting symptoms, or acuity I expect that the services needed warrant INPATIENT care.: Yes I certify that my determination is in accordance with my understanding of Medicare's requirements for reasonable and necessary INPATIENT services [42 CFR 412.3e].: Yes Medical Necessity: Significant Comorbidiites Make Outpatient Treatment Too Risky , Need Close Monitoring Due to Risk of Patient Decompensation, Need For Continuous Telemetry Monitoring, Need for Nebulizer Therapy and Monitoring of Response, Need for IV Antibiotics, Risk of Complication if Not Cared For in Hospital, Risk of Diagnosis Which Will Require Inpatient Eval/Care/Monitoring Post Hospital Care: D/C or Transfer Summary
[2016-09-13] MEDS ORDERED: INSULIN GLARGINE,HUM.REC.ANLOG 1,000 UNIT/10 ML UNIT SUBCUT ONE (23:00)
[2016-09-13] MEDS ORDERED: INSULIN GLARGINE,HUM.REC.ANLOG 300 UNIT/3 ML INSULN.PEN SUBCUT SCH (23:00)
[2016-09-13] MEDS: INSULIN LISPRO 100 UNIT/ML 3 ML VIAL SUBCUT PRN (23:29)
[2016-09-14] MEDS: LANSOPRAZOLE 30 MG TAB.RAP.DR PO SCH (05:41)
[2016-09-14] MEDS: HYDRALAZINE HCL 50 MG TABLET PO SCH ×3 (05:41→22:06)
[2016-09-14 06:51] LABS: ABSOLUTE LYMPHOCYTES (AUTO) 0.5 10^3/uL (0.5-4.7); ABSOLUTE MONOCYTES (AUTO) 0.1 10^3/uL (0.1-1.4); ABSOLUTE NEUT (AUTO) 7.5 10^3/uL (1.7-8.2); BASOPHILS % (AUTO) 0.1 % (0-2); HEMOGLOBIN 8.5 g/dL (13.5-17.0); HGB HCT DIFFERENCE -1.5; LYMPHOCYTES % (AUTO) 6.1 % (13-45); MEAN CORPUSCULAR HEMOGLOBIN 24.8 pg (27.0-33.4); MEAN CORPUSCULAR HGB CONC 31.7 g/dL (32.0-36.0); MEAN CORPUSCULAR VOLUME 78 fl (80-97); RED BLOOD COUNT 3.44 10^6/uL (4.35-5.55); RED CELL DISTRIBUTION WIDTH 19.8 % (11.5-14.0); SEGMENTED NEUTROPHILS % (AUTO) 92.8 % (42-78); WHITE BLOOD COUNT 8.1 10^3/uL (4.0-10.5)
[2016-09-14 07:01] LABS: ANION GAP 14 (5-19); BLOOD UREA NITROGEN 21 mg/dL (7-20); CALCIUM 8.9 mg/dL (8.4-10.2); CARBON DIOXIDE 27 mmol/L (22-30); CHLORIDE 100 mmol/L (98-107); CREATININE RESULT 1.71 mg/dL (0.52-1.25); GLUCOSE 227 mg/dL (75-110); POTASSIUM 5.2 mmol/L (3.6-5.0); SODIUM 140.7 mmol/L (137-145)
[2016-09-14] MEDS: IPRATROPIUM/ALBUTEROL 0.5-2.5 MG/3 ML AMPUL NEB SCH ×3 (08:22→19:36)
[2016-09-14] MEDS ORDERED: CEFEPIME 2 GM/D5W RTU 50 ML IV SCH (10:00)
[2016-09-14] MEDS ORDERED: CEFEPIME HCL 2 GM in DEXTROSE 5%-WATER 50 ML IV SCH (10:00)
[2016-09-14] MEDS ORDERED: AZITHROMYCIN 500 MG in DEXTROSE 5%-WATER 250 ML IV SCH (10:00)
[2016-09-14] MEDS ORDERED: FUROSEMIDE INJ/PF 40 MG/4 ML SDV IV ONE (10:00)
--- NOTE | 2016-09-14 11:36 | PDOC CONSULTATION ---
Consultation Consult Date: 09/14/16 Attending physician:: CHRISTINA PENNY - FOR RIGHT Consult reason:: Right foort ulcer History of Present Illness Admission Date/PCP: 09/13/16 21:56 SUDEEP CHEUNG Patient complains of: known to have ulcer History of Present Illness: KNOWN TO HAVE ULCER, GOES TO WOUND CLINIC Past Medical History Cardiac Medical History: Reports: Atrial Fibrillation, Congestive Heart Failure - Diastolic, Hyperlipidema, Hypertension Denies: DVT, Myocardial Infarction, Pulmonary Embolism Pulmonary Medical History: Reports: Chronic Obstructive Pulmonary Disease (COPD) , Sleep Apnea Neurological Medical History: Denies: Seizures Endocrine Medical History: Reports: Diabetes Mellitus Type 1, Diabetes Mellitus Type 2 - Lymphadema and chronic venous stasis Denies: Hyperthyroidism, Hypothyroidism GI Medical History: Denies: Cirrhosis, Gastroesophageal Reflux Disease, Hepatitis Musculoskeltal Medical History: Denies: Arthritis Psychiatric Medical History: Reports: Depression Hematology: Reports: Anemia Infectious Medical History: Reports: Methicillin-Resistant Staph Aureus Past Surgical History Past Surgical History: Reports: Orthopedic Surgery - Right fifth metatarsal amputation, Other - Nasal surgery many years ago while in the [facility]. Social History Lives with: Snf Smoking Status: Never Smoker Number of Years Smokin Frequency of Alcohol Use: None Hx Recreational Drug Use: No Drugs: None Hx Prescription Drug Abuse: No - Advance Directive Resuscitation Status: Full Code Family History Family History: CAD, CVA, DM Medication/Allergy Home Medications: Apixaban [Eliquis 5 mg Tablet] 5 mg PO Q12 07/03/16 B Complex & C No.20/Folic Acid [Renal Caps Softgel] 1 cap PO DAILY 07/03/16 Ergocalciferol (Vitamin D2) [Vitamin D2] 50,000 units PO ABDALLA 07/03/16 Ferrous Sulfate [Feosol 325 mg Tablet] 325 mg PO BID 07/03/16 Isosorbide Mononitrate [Imdur 30 mg Tablet.er] 30 mg PO DAILY 07/03/16 Pantoprazole Sodium [Protonix] 40 mg PO DAILY 07/03/16 Tiotropium [place] [Spiriva Handihaler 18 mcg/dose (30 Dose)] 1 cap IH DAILY 05/09 Furosemide [Lasix 40 mg Tablet] 40 mg PO DAILY #0 tablet 07/24/16 Hydralazine HCl [Apresoline 50 mg Tablet] 100 mg PO Q8 #0 tablet 07/24/16 Polyethylene Glycol 3350 [Miralax Powder 17 gm/Packet] 17 gm PO DAILY #0 powd.pack 07/24/16 Acetaminophen [Tylenol 325 mg Tablet] 650 mg PO Q4HP PRN tablet 08/13/16 Amlodipine Besylate [Norvasc 10 mg Tablet] 10 mg PO DAILY tablet 08/13/16 Aspirin [Adult Low Dose Aspirin EC] 81 mg PO DAILY #30 tablet. 08/13/16 Docusate Sodium [Colace 100 mg Capsule] 100 mg PO BID capsule 08/13/16 Doxazosin Mesylate [Cardura 4 mg Tablet] 4 mg PO QHS tablet 08/13/16 Epoetin Ernesto [Procrit Inj 20,000 Unit/1 ml Vial (Renal)] 20,000 unit SUBCUT Q7D ml 08/13/16 Insulin Glargine,Hum.rec.anlog [Lantus] 20 units SQ QHS #0 08/13/16 Insulin Lispro [Humalog Insulin (Lispro) 100 unit/mL] 0 - 12 unit SUBCUT ACHSP PRN unit 08/13/16 Levalbuterol HCl [Xopenex Neb 1.25 mg/3 ml Ampul] 1.25 mg NEB RTQ4HP PRN vial.neb 08/13/16 Metoprolol Succinate [Toprol Xl 50 mg Tab.sr] 50 mg PO QHS tab.sr.24h 08/13/16 Allergies/Adverse Reactions: PPD black rubber mix Allergy (Verified 08/05/16 00:06) Review of Systems Constitutional: ABSENT: chills, fever(s), headache(s), weight gain, weight loss Eyes: ABSENT: visual disturbances Ears: ABSENT: hearing changes Cardiovascular: ABSENT: chest pain, dyspnea on exertion, edema, orthropnea, palpitations Respiratory: ABSENT: cough, hemoptysis Gastrointestinal: ABSENT: abdominal pain, constipation, diarrhea, hematemesis, hematochezia, nausea, vomiting Genitourinary: ABSENT: dysuria, hematuria Musculoskeletal: ABSENT: joint swelling Integumentary: ABSENT: rash, wounds Neurological: ABSENT: abnormal gait, abnormal speech, confusion, dizziness, focal weakness, syncope Psychiatric: ABSENT: anxiety, depression, homidical ideation, suicidal ideation Endocrine: ABSENT: cold intolerance, heat intolerance, polydipsia, polyuria Hematologic/Lymphatic: ABSENT: easy bleeding, easy bruising Physical Exam Vital Signs: Temp Pulse Resp BP Pulse Ox 98.3 F 88 26 H 176/74 H 98 09/14/16 07:26 09/14/16 08:22 09/14/16 11:17 09/14/16 07:26 09/14/16 08:22 Intake & Output 09/13/16 09/14/16 09/15/16 06:59 06:59 06:59 Intake Total 10 Output Total 200 Balance -190 Weight 124.3 kg General appearance: PRESENT: no acute distress, well-developed, well-nourished Head exam: PRESENT: atraumatic, normocephalic Eye exam: PRESENT: conjunctiva pink, EOMI, PERRLA. ABSENT: scleral icterus Ear exam: PRESENT: normal external ear exam Mouth exam: PRESENT: moist, tongue midline Neck exam: ABSENT: carotid bruit, JVD, lymphadenopathy, thyromegaly Respiratory exam: PRESENT: clear to auscultation cornell. ABSENT: rales, rhonchi, wheezes Cardiovascular exam: PRESENT: RRR. ABSENT: diastolic murmur, rubs, systolic murmur Pulses: PRESENT: normal dorsalis pedis pul Vascular exam: PRESENT: normal capillary refill GI/Abdominal exam: PRESENT: normal bowel sounds, soft. ABSENT: distended, guarding, mass, organolmegaly, rebound, tenderness Rectal exam: PRESENT: deferred Extremities exam: PRESENT: other - Right foot 4 x3 cm wound on the plantar aspect of the right foot Small amount of necrotic debris Neurological exam: PRESENT: alert, awake, oriented to person, oriented to place , oriented to time, oriented to situation, CN II-XII grossly intact. ABSENT: motor sensory deficit Psychiatric exam: PRESENT: appropriate affect, normal mood. ABSENT: homicidal ideation, suicidal ideation Skin exam: PRESENT: dry, intact, warm. ABSENT: cyanosis, rash Results Laboratory Results: 09/14/16 06:18 09/14/16 06:18 09/14/16 09/14/16 06:18 06:18 WBC 8.1 RBC 3.44 L Hgb 8.5 L Hct 27.0 L MCV 78 L MCH 24.8 L MCHC 31.7 L RDW 19.8 H Plt Count 257 Seg Neutrophils % 92.8 H Lymphocytes % 6.1 L Monocytes % 1.0 L Eosinophils % 0.0 Basophils % 0.1 Absolute Neutrophils 7.5 Absolute Lymphocytes 0.5 Absolute Monocytes 0.1 Absolute Eosinophils 0.0 Absolute Basophils 0.0 Sodium 140.7 Potassium 5.2 H Chloride 100 Carbon Dioxide 27 Anion Gap 14 BUN 21 H Creatinine 1.71 H Est GFR ( Amer) 47 L Est GFR (Non-Af Amer) 39 L Glucose 227 H Calcium 8.9 Impressions: Chest X-Ray 09/13/16 16:00 IMPRESSION: PROBABLE ASYMMETRIC PULMONARY EDEMA. UNDERLYING PNEUMONIA ALSO POSSIBLE. Assessment & Plan - Diagnosis (1) Right foot ulcer Qualifiers: Non-pressure ulcer stage: with necrosis of muscle Qualified Code(s) : L97.513 - Non-pressure chronic ulcer of other part of right foot with necrosis of muscle Is this a current diagnosis for this admission?: No - Time Time Spent: 50 to 70 Minutes - INCLUDING FOR DEBRIDEMENT - Inpatient Certification Medical Necessity: Failure to Improve With Outpatient Therapy - Plan Summary Plan Summary: Right foot - Necrotic wound pLAN bED SIDE EXCISIONAL SHARP DEBRIDEMENT OF THE NECROTIC ULCER DONE TO THE FASCIAL LEVEL AFTER CLEANING AND DRAPING THE AREA. Dressings applied Apply wet to dry dressings daily Follow in the wound clinc after the discharge.
[2016-09-14] MEDS ORDERED: IMIPENEM/CILASTATIN SODIUM 500 MG in NORMAL SALINE 100 ML IV SCH (12:00)
[2016-09-14] MEDS: POLYETHYLENE GLYCOL 3350 POWDER 17 GM/1 PACKET PO SCH (12:19)
[2016-09-14] MEDS: DOCUSATE SODIUM 100 MG CAPSULE PO SCH ×2 (12:20→17:29)
[2016-09-14] MEDS: APIXABAN 5 MG TABLET PO SCH ×2 (12:20→22:08)
[2016-09-14] MEDS: ISOSORBIDE MONONITRATE 30 MG TAB.ER.24H PO SCH (12:20)
[2016-09-14] MEDS: PREDNISONE 20 MG TABLET PO SCH (12:21)
[2016-09-14] MEDS: FOLIC ACID/VITAMIN B COMP W-C CAPSULE PO SCH (12:21)
[2016-09-14] MEDS: ASPIRIN 81 MG TABLET, ENT COATED PO SCH (12:22)
[2016-09-14] MEDS: FERROUS SULFATE 325 MG TABLET PO SCH ×2 (12:22→17:29)
[2016-09-14] MEDS: LINEZOLID 300 ML IV SCH ×2 (12:23→22:07)
[2016-09-14] MEDS: AMLODIPINE BESYLATE 10 MG TABLET PO SCH (12:25)
[2016-09-14] MEDS: TIOTROPIUM BROMIDE DPI 5 CAP/KIT (18 MCG/CAP) IH SCH (12:28)
[2016-09-14] MEDS: INSULIN LISPRO 100 UNIT/ML 3 ML VIAL SUBCUT PRN ×2 (13:07→17:28)
--- NOTE | 2016-09-14 13:10 | PDOC PROGRESS REPORT ---
Subjective Progress Note for:: 09/14/16 Subjective:: Reason for visit: Follow-up pneumonia, CHF exacerbation, UTI, lower extremity foot ulcer Hospital course: Per H&P "CHARLA WEBB JR is a 81 year old -Luxembourger male, with multiple chronic comorbidities, including diastolic congestive heart failure, insulin-dependent diabetes mellitus, atrial fibrillation, on Eliquis for same stage III chronic kidney disease, chronic open wound of right foot, currently undergoing daily dressing changes, who presents to the emergency room for evaluation of above complaint. Patient has been discussed with daytime hospitalist to discuss the patient with emergency room physician who evaluated the patient. Several day history of slowly progressive shortness of breath, in particular over the last 24 hours. No fever or chills, nausea vomiting, diarrhea or dysuria. No chest or abdominal pain. Mild dry cough. Hospitalized on our service August 04 of the of this year with final diagnoses including diastolic congestive heart failure exacerbation, osteomyelitis of the right foot. History and physical and discharge summary have been reviewed." He remains on BiPAP and becomes very anxious with any attempt to take him off. He feels like he smothering without the BiPAP in place. He is calling out to the nursing staff come change the channel on his TV, reposition his pillow, reposition him in the bed, sips of water and other various and things because he fears being in the room alone. Subjective: Continues to complain of dyspnea, wheezing, weakness. He denies chest pain, palpitations, fevers, chills, nausea, vomiting, diarrhea. ROS: per HPI plus a total of 10 systems reviewed, pertinent positives and negatives noted above, remaining systems negative. Physical Exam Vital Signs: Temp Pulse Resp BP Pulse Ox 98.3 F 96 22 H 169/78 H 97 09/14/16 07:26 09/14/16 11:41 09/14/16 11:41 09/14/16 11:41 09/14/16 11:41 Intake & Output 09/13/16 09/14/16 09/15/16 06:59 06:59 06:59 Intake Total 10 Output Total 200 Balance -190 Weight 124.3 kg EXAM GENERAL: NAD; well developed, well nourished; morbidly obese; alert and oriented to person, place, time, HEENT: normocephalic, atraumatic; no conjunctival injection, no scleral icterus ; oral mucosa moist; RESPIRATORY: abdominal accessory muscle use, mod increased WOB, poor air entry bilaterally; no wheezes, rales, rhonchi; diffuse inspiratory crackles CARDIO: Unsure of JVD due to the size and girth of his neck; RRR; no systolic murmur; no tachycardia GI: soft; nondistended; normal bowel sounds; no rebound, rigidity, guarding; massive pannus VASCULAR: no pallor; 2+ radial, DP pulse; dry scaling skin below the knees, plantar surface the right foot has a approximately 3 x 3 cm ulceration, dry, some necrotic tissue at the center and around rim EXTREMITIES: no calf tender; no palpable cords in calf; no clubbing, cyanosis ; bilateral 2+ pedal edema PSYCH: normal affect, very anxious SKIN: warm; very dry; no petechiae; no telengectasias; no jaundice; Results Laboratory Results: 09/14/16 06:18 09/14/16 06:18 09/14/16 09/14/16 06:18 06:18 WBC 8.1 RBC 3.44 L Hgb 8.5 L Hct 27.0 L MCV 78 L MCH 24.8 L MCHC 31.7 L RDW 19.8 H Plt Count 257 Seg Neutrophils % 92.8 H Lymphocytes % 6.1 L Monocytes % 1.0 L Eosinophils % 0.0 Basophils % 0.1 Absolute Neutrophils 7.5 Absolute Lymphocytes 0.5 Absolute Monocytes 0.1 Absolute Eosinophils 0.0 Absolute Basophils 0.0 Sodium 140.7 Potassium 5.2 H Chloride 100 Carbon Dioxide 27 Anion Gap 14 BUN 21 H Creatinine 1.71 H Est GFR ( Amer) 47 L Est GFR (Non-Af Amer) 39 L Glucose 227 H Calcium 8.9 Labs and old record reviewed, H&H. Because to baseline, as does his serum creatinine Impressions: Chest X-Ray 09/13/16 16:00 IMPRESSION: PROBABLE ASYMMETRIC PULMONARY EDEMA. UNDERLYING PNEUMONIA ALSO POSSIBLE. Status: Image reviewed by me - Appears to be significant change from last chest x-ray with near white out of the left lung Assessment & Plan - Diagnosis (1) Acute on chronic diastolic (congestive) heart failure Is this a current diagnosis for this admission?: Yes (2) Pneumonia Qualifiers: Pneumonia type: due to unspecified organism Lung location: unspecified part of lung Is this a current diagnosis for this admission?: Yes (3) Acute hypoxemic respiratory failure Is this a current diagnosis for this admission?: Yes (4) COPD exacerbation Is this a current diagnosis for this admission?: Yes (5) Osteomyelitis of right foot Qualifiers: Osteomyelitis type: other chronic hematogenous Qualified Code(s): M86.571 - Other chronic hematogenous osteomyelitis, right ankle and foot Is this a current diagnosis for this admission?: YesPlan: Polymicrobial with multidrug resistances, carbapenems and Zyvox were the only 2 drugs in combination that will cover all the organisms cultured earlier this month. We'll change his antibiotics accordingly. This will also cover the pneumonia. (6) UTI (urinary tract infection) Qualifiers: Urinary tract infection type: site unspecified Is this a current diagnosis for this admission?: Yes (7) COPD (chronic obstructive pulmonary disease) Qualifiers: COPD type: unspecified COPD Qualified Code(s): J44.9 - Chronic obstructive pulmonary disease, unspecified (9) Type 2 diabetes mellitus with hyperglycemia Qualifiers: Diabetes mellitus chcf insulin use: unspecified chcf insulin use status Qualified Code(s): E11.65 - Type 2 diabetes mellitus with hyperglycemia (10) Obstructive sleep apnea Is this a current diagnosis for this admission?: Yes - Time Time Spent with patient: 35 or more minutes Medications reviewed and adjusted accordingly: Yes - Plan Summary Plan Summary: Continue home medicines for his chronic medical conditions. Continue attempts to wean BiPAP as he will tolerate. Monitor volume status and adjust diuresis accordingly. Increased his Lasix by shortening the interval to every 8 hours.
--- NOTE | 2016-09-14 15:03 | CONSULTATION REPORT E ---
Consultation Report NAME: CHARLA WEBB : 1935 AGE: 81Y DATE: 09/14/2016 317 A TO: CHRISTINA PENNY M.D. FROM: Requesting Physician CHIEF COMPLAINT/HISTORY OF PRESENT ILLNESS: The patient was consulted from hospitalist group of evaluation and management of right foot ulcer wound. The patient is known to have chronic venostasis lymphedema. He has plantar aspect of the right foot, a chronic wound. Basically this time he was admitted to the hospital for exacerbation of COPD and respiratory issues. Consulted for a surgical evaluation was for the chronic right foot wound. The patient does not complain of any pain. PAST MEDICAL HISTORY: 1. History of COPD. 2. Chronic venostasis. 3. Diabetes. 4. Vascular disease. PHYSICAL EXAMINATION: GENERAL: He is awake, alert and oriented. EXTREMITIES: Limited examination of right extremity: right foot with about a 4 cm long and 3 cm wide wound present on the plantar aspect of the right foot and there is a small amount of necrotic tissue on the adjacent part of the wound up to the muscular tendinous level. IMPRESSION OVERALL: Wound of the right foot with some necrotic tissue. PLAN: I performed an excisional sharp debridement of the necrotic part of the wound. It was debrided up to the fascial level by using sharp scissors after cleaning the area. The wound was now irrigated and dressings were applied. Further wound care with dry dressings. PROCEDURE: Incision and sharp debridement of the right foot wound up to the fascial muscle layer. DICTATING PHYSICIAN: CHRISTINA PENNY M.D. [id number] PHY#: [id number] ID: [id number] JOB#: [id number] ACCT: [id number] cc:CHRISTINA PENNY M.D. > MTDShemar
[2016-09-14] MEDS: FUROSEMIDE INJ/PF 20 MG/2 ML SDV IV SCH ×2 (15:08→17:29)
[2016-09-14] MEDS: IMIPENEM/CILASTATIN SODIUM 500 MG in NORMAL SALINE 100 ML IV SCH (20:43)
[2016-09-14] MEDS: DOXAZOSIN MESYLATE 4 MG TABLET PO SCH (22:07)
[2016-09-14] MEDS: METOPROLOL SUCCINATE 50 MG TAB.SR.24H PO SCH (22:07)
[2016-09-15] MEDS: IMIPENEM/CILASTATIN SODIUM 500 MG in NORMAL SALINE 100 ML IV SCH ×4 (03:30→20:40)
[2016-09-15 06:16] LABS: ABSOLUTE LYMPHOCYTES (AUTO) 0.5 10^3/uL (0.5-4.7); ABSOLUTE MONOCYTES (AUTO) 0.4 10^3/uL (0.1-1.4); ABSOLUTE NEUT (AUTO) 6.8 10^3/uL (1.7-8.2); BASOPHILS % (AUTO) 0.2 % (0-2); HEMATOCRIT 25.7 % (37.9-51.0); HGB HCT DIFFERENCE -1.7; LYMPHOCYTES % (AUTO) 6.3 % (13-45); MEAN CORPUSCULAR HEMOGLOBIN 24.2 pg (27.0-33.4); MEAN CORPUSCULAR HGB CONC 31.2 g/dL (32.0-36.0); MEAN CORPUSCULAR VOLUME 78 fl (80-97); MONOCYTES % (AUTO) 5.2 % (3-13); RED BLOOD COUNT 3.31 10^6/uL (4.35-5.55); RED CELL DISTRIBUTION WIDTH 19.4 % (11.5-14.0); SEGMENTED NEUTROPHILS % (AUTO) 88.3 % (42-78); WHITE BLOOD COUNT 7.7 10^3/uL (4.0-10.5)
[2016-09-15] MEDS: LANSOPRAZOLE 30 MG TAB.RAP.DR PO SCH (06:29)
[2016-09-15] MEDS: HYDRALAZINE HCL 50 MG TABLET PO SCH ×3 (06:29→21:51)
[2016-09-15 06:38] LABS: ANION GAP 11 (5-19); BLOOD UREA NITROGEN 24 mg/dL (7-20); CALCIUM 8.9 mg/dL (8.4-10.2); CARBON DIOXIDE 28 mmol/L (22-30); CHLORIDE 100 mmol/L (98-107); CREATININE RESULT 1.61 mg/dL (0.52-1.25); GLUCOSE 282 mg/dL (75-110); PHOSPHORUS 5.2 mg/dL (2.5-4.5); POTASSIUM 5.2 mmol/L (3.6-5.0); SODIUM 139.3 mmol/L (137-145)
[2016-09-15] MEDS: IPRATROPIUM/ALBUTEROL 0.5-2.5 MG/3 ML AMPUL NEB SCH ×3 (08:07→20:46)
[2016-09-15] MEDS ORDERED: ERGOCALCIFEROL (VITAMIN D2) 50000 UNIT (1.25 MG) CAPSULE PO SCH (09:00)
[2016-09-15] MEDS: INSULIN LISPRO 100 UNIT/ML 3 ML VIAL SUBCUT PRN ×4 (09:09→21:52)
[2016-09-15] MEDS: PREDNISONE 20 MG TABLET PO SCH (09:16)
[2016-09-15] MEDS: POLYETHYLENE GLYCOL 3350 POWDER 17 GM/1 PACKET PO SCH (09:16)
[2016-09-15] MEDS: FOLIC ACID/VITAMIN B COMP W-C CAPSULE PO SCH (09:17)
[2016-09-15] MEDS: DOCUSATE SODIUM 100 MG CAPSULE PO SCH ×2 (09:17→17:24)
[2016-09-15] MEDS: ASPIRIN 81 MG TABLET, ENT COATED PO SCH (09:17)
[2016-09-15] MEDS: FERROUS SULFATE 325 MG TABLET PO SCH ×2 (09:17→17:25)
[2016-09-15] MEDS: AMLODIPINE BESYLATE 10 MG TABLET PO SCH (09:17)
[2016-09-15] MEDS: ISOSORBIDE MONONITRATE 30 MG TAB.ER.24H PO SCH (09:17)
[2016-09-15] MEDS: APIXABAN 5 MG TABLET PO SCH ×2 (09:19→21:52)
[2016-09-15] MEDS: FUROSEMIDE INJ/PF 20 MG/2 ML SDV IV SCH ×3 (09:29→17:24)
[2016-09-15] MEDS: TIOTROPIUM BROMIDE DPI 5 CAP/KIT (18 MCG/CAP) IH SCH (09:33)
[2016-09-15] MEDS: LINEZOLID 300 ML IV SCH ×2 (09:34→21:51)
[2016-09-15] MEDS ORDERED: FUROSEMIDE 40 MG TABLET PO SCH (10:00)
--- NOTE | 2016-09-15 11:50 | PDOC PROGRESS REPORT ---
Subjective Progress Note for:: 09/15/16 Subjective:: Reason for visit: Follow-up pneumonia, CHF exacerbation, UTI, lower extremity foot ulcer Hospital course: Per H&P "CHARLA WEBB JR is a 81 year old -Turkmen male, with multiple chronic comorbidities, including diastolic congestive heart failure, insulin-dependent diabetes mellitus, atrial fibrillation, on Eliquis for same stage III chronic kidney disease, chronic open wound of right foot, currently undergoing daily dressing changes, who presents to the emergency room for evaluation of above complaint. Patient has been discussed with daytime hospitalist to discuss the patient with emergency room physician who evaluated the patient. Several day history of slowly progressive shortness of breath, in particular over the last 24 hours. No fever or chills, nausea vomiting, diarrhea or dysuria. No chest or abdominal pain. Mild dry cough. Hospitalized on our service August 04 of the of this year with final diagnoses including diastolic congestive heart failure exacerbation, osteomyelitis of the right foot. History and physical and discharge summary have been reviewed." He remains on BiPAP and becomes very anxious with any attempt to take him off. He feels like he smothering without the BiPAP in place. He is calling out to the nursing staff come change the channel on his TV, reposition his pillow, reposition him in the bed, sips of water and other various and things because he fears being in the room alone. he weaned off BiPAP with some reluctance this morning but is doing ok now on supplemental O2. Subjective: Continues to complain of dyspnea, wheezing, weakness. He denies chest pain, palpitations, fevers, chills, nausea, vomiting, diarrhea. ROS: per HPI plus a total of 10 systems reviewed, pertinent positives and negatives noted above, remaining systems negative. Physical Exam Vital Signs: Temp Pulse Resp BP Pulse Ox 98.3 F 77 16 153/71 H 93 09/15/16 08:31 09/15/16 08:31 09/15/16 08:31 09/15/16 08:31 09/15/16 08:31 Intake & Output 09/14/16 09/15/16 09/16/16 06:59 06:59 06:59 Intake Total 10 1499 Output Total 200 1000 Balance -190 499 Weight 124.3 kg 123.3 kg EXAM GENERAL: NAD; well developed, well nourished; morbidly obese; alert and oriented to person, place, time, HEENT: normocephalic, atraumatic; no conjunctival injection, no scleral icterus ; oral mucosa moist; RESPIRATORY:no accessory muscle use, no increased WOB, poor air entry bilaterally; bilat end exp wheezes; no rales or rhonchi; diffuse inspiratory crackles CARDIO: Unsure of JVD due to the size and girth of his neck; RRR; no systolic murmur; no tachycardia GI: soft; nondistended; normal bowel sounds; no rebound, rigidity, guarding; massive pannus VASCULAR: no pallor; 2+ radial; dry scaling skin below the knees, plantar surface the right foot has a approximately 3 x 3 cm ulceration, bandage is clean and dry EXTREMITIES: no calf tender; no palpable cords in calf; no clubbing, cyanosis ; bilateral 2+ pedal edema PSYCH: normal affect, not as anxious SKIN: warm; very dry; no petechiae; no telengectasias; no jaundice; Results Laboratory Results: 09/15/16 05:19 09/15/16 05:19 09/15/16 09/15/16 05:19 05:19 WBC 7.7 RBC 3.31 L Hgb 8.0 L Hct 25.7 L MCV 78 L MCH 24.2 L MCHC 31.2 L RDW 19.4 H Plt Count 235 Seg Neutrophils % 88.3 H Lymphocytes % 6.3 L Monocytes % 5.2 Eosinophils % 0.0 Basophils % 0.2 Absolute Neutrophils 6.8 Absolute Lymphocytes 0.5 Absolute Monocytes 0.4 Absolute Eosinophils 0.0 Absolute Basophils 0.0 Sodium 139.3 Potassium 5.2 H Chloride 100 Carbon Dioxide 28 Anion Gap 11 BUN 24 H Creatinine 1.61 H Est GFR ( Amer) 50 L Est GFR (Non-Af Amer) 42 L Glucose 282 H Calcium 8.9 Phosphorus 5.2 H Magnesium 2.0 Impressions: Chest X-Ray 09/13/16 16:00 IMPRESSION: PROBABLE ASYMMETRIC PULMONARY EDEMA. UNDERLYING PNEUMONIA ALSO POSSIBLE. Assessment & Plan - Diagnosis (1) Acute on chronic diastolic (congestive) heart failure Is this a current diagnosis for this admission?: YesPlan: continue lasix tid and monitor renal function and I/O's (2) Pneumonia Qualifiers: Pneumonia type: due to unspecified organism Lung location: unspecified part of lung Is this a current diagnosis for this admission?: YesPlan: continue imipenem and zyvox given his previous culture results. lactobacillus for cdiff proph (3) Acute hypoxemic respiratory failure Is this a current diagnosis for this admission?: YesPlan: continue prn BiPAP; continue supplemental O2 and nebs (4) COPD exacerbation Is this a current diagnosis for this admission?: YesPlan: continue abx/nebs/O2/systemic steroids (5) Osteomyelitis of right foot Qualifiers: Osteomyelitis type: other chronic hematogenous Qualified Code(s): M86.571 - Other chronic hematogenous osteomyelitis, right ankle and foot Is this a current diagnosis for this admission?: YesPlan: Polymicrobial with multidrug resistances, carbapenems and Zyvox were the only 2 drugs in combination that will cover all the organisms cultured earlier this month. We'll change his antibiotics accordingly. This has added benefit of covering the pneumonia. Surgery debrided and signed off, recommending outpt f/ u with wound care clinic. (6) UTI (urinary tract infection) Qualifiers: Urinary tract infection type: site unspecified Is this a current diagnosis for this admission?: YesPlan: GN fernando, species and susc still pending. (7) COPD (chronic obstructive pulmonary disease) Qualifiers: COPD type: unspecified COPD Qualified Code(s): J44.9 - Chronic obstructive pulmonary disease, unspecified (9) Type 2 diabetes mellitus with hyperglycemia Qualifiers: Diabetes mellitus alf insulin use: unspecified manager intermediate insulin use status Qualified Code(s): E11.65 - Type 2 diabetes mellitus with hyperglycemia (10) Obstructive sleep apnea Is this a current diagnosis for this admission?: Yes - Time Time Spent with patient: 25-34 minutes Medications reviewed and adjusted accordingly: Yes Anticipated discharge: SNF Within: within 48 hours
[2016-09-15] MEDS: LACTOBACILLUS ACIDOPHILUS 250 MG TAB PO SCH (17:25)
[2016-09-15] MEDS: DOXAZOSIN MESYLATE 4 MG TABLET PO SCH (21:50)
[2016-09-15] MEDS: METOPROLOL SUCCINATE 50 MG TAB.SR.24H PO SCH (21:51)
[2016-09-15] MEDS: INSULIN GLARGINE,HUM.REC.ANLOG 300 UNIT/3 ML INSULN.PEN SUBCUT SCH (21:52)
[2016-09-16] MEDS: IMIPENEM/CILASTATIN SODIUM 500 MG in NORMAL SALINE 100 ML IV SCH ×4 (02:37→22:12)
[2016-09-16 05:11] LABS: ABSOLUTE LYMPHOCYTES (AUTO) 0.6 10^3/uL (0.5-4.7); ABSOLUTE MONOCYTES (AUTO) 0.5 10^3/uL (0.1-1.4); ABSOLUTE NEUT (AUTO) 7.7 10^3/uL (1.7-8.2); BASOPHILS % (AUTO) 0.3 % (0-2); HEMATOCRIT 25.2 % (37.9-51.0); HEMOGLOBIN 8.1 g/dL (13.5-17.0); HGB HCT DIFFERENCE -0.9; LYMPHOCYTES % (AUTO) 6.5 % (13-45); MEAN CORPUSCULAR HEMOGLOBIN 24.8 pg (27.0-33.4); MEAN CORPUSCULAR HGB CONC 32.1 g/dL (32.0-36.0); MEAN CORPUSCULAR VOLUME 77 fl (80-97); MONOCYTES % (AUTO) 5.5 % (3-13); RED BLOOD COUNT 3.26 10^6/uL (4.35-5.55); RED CELL DISTRIBUTION WIDTH 19.8 % (11.5-14.0); SEGMENTED NEUTROPHILS % (AUTO) 87.7 % (42-78); WHITE BLOOD COUNT 8.8 10^3/uL (4.0-10.5)
[2016-09-16 05:36] LABS: ANION GAP 9 (5-19); BLOOD UREA NITROGEN 28 mg/dL (7-20); CALCIUM 9.2 mg/dL (8.4-10.2); CARBON DIOXIDE 30 mmol/L (22-30); CHLORIDE 99 mmol/L (98-107); CREATININE RESULT 1.56 mg/dL (0.52-1.25); GLUCOSE 217 mg/dL (75-110); POTASSIUM 4.7 mmol/L (3.6-5.0); SODIUM 138.3 mmol/L (137-145)
[2016-09-16] MEDS: HYDRALAZINE HCL 50 MG TABLET PO SCH ×3 (05:56→22:22)
[2016-09-16] MEDS: LANSOPRAZOLE 30 MG TAB.RAP.DR PO SCH (05:57)
[2016-09-16] MEDS: INSULIN LISPRO 100 UNIT/ML 3 ML VIAL SUBCUT PRN ×4 (07:58→22:27)
[2016-09-16] MEDS: IPRATROPIUM/ALBUTEROL 0.5-2.5 MG/3 ML AMPUL NEB SCH ×3 (08:13→20:04)
[2016-09-16] MEDS: ASPIRIN 81 MG TABLET, ENT COATED PO SCH (09:22)
[2016-09-16] MEDS: LACTOBACILLUS ACIDOPHILUS 250 MG TAB PO SCH ×2 (09:22→18:05)
[2016-09-16] MEDS: PREDNISONE 20 MG TABLET PO SCH (09:23)
[2016-09-16] MEDS: ISOSORBIDE MONONITRATE 30 MG TAB.ER.24H PO SCH (09:23)
[2016-09-16] MEDS: APIXABAN 5 MG TABLET PO SCH ×2 (09:23→22:27)
[2016-09-16] MEDS: FOLIC ACID/VITAMIN B COMP W-C CAPSULE PO SCH (09:24)
[2016-09-16] MEDS: DOCUSATE SODIUM 100 MG CAPSULE PO SCH ×2 (09:24→18:05)
[2016-09-16] MEDS: AMLODIPINE BESYLATE 10 MG TABLET PO SCH (09:24)
[2016-09-16] MEDS: FERROUS SULFATE 325 MG TABLET PO SCH ×2 (09:25→18:05)
[2016-09-16] MEDS: FUROSEMIDE INJ/PF 20 MG/2 ML SDV IV SCH ×3 (09:25→18:04)
[2016-09-16] MEDS: POLYETHYLENE GLYCOL 3350 POWDER 17 GM/1 PACKET PO SCH (09:26)
[2016-09-16] MEDS: LINEZOLID 300 ML IV SCH ×2 (10:55→23:43)
[2016-09-16] MEDS: TIOTROPIUM BROMIDE DPI 5 CAP/KIT (18 MCG/CAP) IH SCH (10:56)
--- NOTE | 2016-09-16 15:25 | PDOC PROGRESS REPORT ---
Subjective Progress Note for:: 09/16/16 Subjective:: Reason for visit: Follow-up pneumonia, CHF exacerbation, UTI, lower extremity foot ulcer Hospital course: Per H&P "CHARLA WEBB JR is a 81 year old -[place] male, with multiple chronic comorbidities, including diastolic congestive heart failure, insulin-dependent diabetes mellitus, atrial fibrillation, on Eliquis for same stage III chronic kidney disease, chronic open wound of right foot, currently undergoing daily dressing changes, who presents to the emergency room for evaluation of above complaint. Patient has been discussed with daytime hospitalist to discuss the patient with emergency room physician who evaluated the patient. Several day history of slowly progressive shortness of breath, in particular over the last 24 hours. No fever or chills, nausea vomiting, diarrhea or dysuria. No chest or abdominal pain. Mild dry cough. Hospitalized on our service August 04 of the of this year with final diagnoses including diastolic congestive heart failure exacerbation, osteomyelitis of the right foot. History and physical and discharge summary have been reviewed." He weaned off BiPAP 09/15 and is doing ok on supplemental O2. Subjective: Continues to complain of some dyspnea, wheezing, non-productive cough & weakness. He denies chest pain, palpitations, fevers, chills, nausea, vomiting, diarrhea. ROS: per HPI plus a total of 10 systems reviewed, pertinent positives and negatives noted above, remaining systems negative. Physical Exam Vital Signs: Temp Pulse Resp BP Pulse Ox 97.8 F 85 18 146/53 H 96 09/16/16 11:34 09/16/16 14:18 09/16/16 14:18 09/16/16 11:34 09/16/16 14:18 Intake & Output 09/15/16 09/16/16 09/17/16 06:59 06:59 06:59 Intake Total 1499 2054 476 Output Total 1000 1600 385 Balance 499 454 91 Weight 123.3 kg 123.3 kg EXAM GENERAL: NAD; well developed, well nourished; morbidly obese; alert and oriented to person, place, time, HEENT: normocephalic, atraumatic; no conjunctival injection, no scleral icterus ; oral mucosa moist; RESPIRATORY:no accessory muscle use, no increased WOB, poor air entry bilaterally; no wheezes or rhonchi today; diffuse inspiratory crackles with rales at Rt base CARDIO: Unsure of JVD due to the size and girth of his neck; RRR; no systolic murmur; no tachycardia GI: soft; nondistended; normal bowel sounds; no rebound, rigidity, guarding; massive pannus VASCULAR: no pallor; 2+ radial; dry scaling skin below the knees, plantar surface the right foot has a approximately 3 x 3 cm ulceration, bandage is clean and dry EXTREMITIES: no calf tender; no palpable cords in calf; no clubbing, cyanosis ; bilateral 2+ woody pedal edema to the knees PSYCH: normal affect, not as anxious SKIN: warm; very dry; no petechiae; no telengectasias; no jaundice; Results Laboratory Results: 09/16/16 04:49 09/16/16 04:49 09/16/16 09/16/16 04:49 04:49 WBC 8.8 RBC 3.26 L Hgb 8.1 L Hct 25.2 L MCV 77 L MCH 24.8 L MCHC 32.1 RDW 19.8 H Plt Count 227 Seg Neutrophils % 87.7 H Lymphocytes % 6.5 L Monocytes % 5.5 Eosinophils % 0.0 Basophils % 0.3 Absolute Neutrophils 7.7 Absolute Lymphocytes 0.6 Absolute Monocytes 0.5 Absolute Eosinophils 0.0 Absolute Basophils 0.0 Sodium 138.3 Potassium 4.7 Chloride 99 Carbon Dioxide 30 Anion Gap 9 BUN 28 H Creatinine 1.56 H Est GFR ( Amer) 52 L Est GFR (Non-Af Amer) 43 L Glucose 217 H Calcium 9.2 labs reviewed, see results above Impressions: Chest X-Ray 09/13/16 16:00 IMPRESSION: PROBABLE ASYMMETRIC PULMONARY EDEMA. UNDERLYING PNEUMONIA ALSO POSSIBLE. Assessment & Plan - Diagnosis (1) Acute on chronic diastolic (congestive) heart failure Is this a current diagnosis for this admission?: YesPlan: improved but no back to baseline; continue lasix tid and monitor renal function and I/O's (2) Pneumonia Qualifiers: Pneumonia type: due to unspecified organism Lung location: unspecified part of lung Is this a current diagnosis for this admission?: YesPlan: improved but not back to baseline; continue imipenem and zyvox given his previous culture results. lactobacillus for cdiff proph (3) Acute hypoxemic respiratory failure Is this a current diagnosis for this admission?: YesPlan: improved but not back to baseline; continue prn BiPAP; continue supplemental O2 and nebs (4) COPD exacerbation Is this a current diagnosis for this admission?: YesPlan: improved but not back to baseline; continue abx/nebs/O2/systemic steroids (5) Osteomyelitis of right foot Qualifiers: Osteomyelitis type: other chronic hematogenous Qualified Code(s): M86.571 - Other chronic hematogenous osteomyelitis, right ankle and foot Is this a current diagnosis for this admission?: YesPlan: Polymicrobial with multidrug resistances, carbapenems and Zyvox were the only 2 drugs in combination that will cover all the organisms cultured earlier this month. This has added benefit of covering the pneumonia. Surgery debrided and signed off, recommending outpt f/u with wound care clinic. (6) UTI (urinary tract infection) Qualifiers: Urinary tract infection type: site unspecified Is this a current diagnosis for this admission?: YesPlan: MDR Proteus Mirabilis without ESBL characteristics. covered with current abx (7) Anemia of chronic disease Plan: H/H at or near his baseline without evidence for acute blood loss. 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
[2016-09-16] MEDS: METOPROLOL SUCCINATE 50 MG TAB.SR.24H PO SCH (22:22)
[2016-09-16] MEDS: DOXAZOSIN MESYLATE 4 MG TABLET PO SCH (22:23)
[2016-09-16] MEDS: INSULIN GLARGINE,HUM.REC.ANLOG 300 UNIT/3 ML INSULN.PEN SUBCUT SCH (22:28)
[2016-09-17] MEDS: IMIPENEM/CILASTATIN SODIUM 500 MG in NORMAL SALINE 100 ML IV SCH ×4 (03:28→20:52)
[2016-09-17 06:31] LABS: ABSOLUTE LYMPHOCYTES (AUTO) 0.5 10^3/uL (0.5-4.7); ABSOLUTE MONOCYTES (AUTO) 0.4 10^3/uL (0.1-1.4); ABSOLUTE NEUT (AUTO) 6.3 10^3/uL (1.7-8.2); BASOPHILS % (AUTO) 0.2 % (0-2); HEMATOCRIT 25.5 % (37.9-51.0); HGB HCT DIFFERENCE -1.5; LYMPHOCYTES % (AUTO) 7.1 % (13-45); MEAN CORPUSCULAR HEMOGLOBIN 24.2 pg (27.0-33.4); MEAN CORPUSCULAR HGB CONC 31.3 g/dL (32.0-36.0); MEAN CORPUSCULAR VOLUME 77 fl (80-97); RED CELL DISTRIBUTION WIDTH 19.3 % (11.5-14.0); SEGMENTED NEUTROPHILS % (AUTO) 86.7 % (42-78); WHITE BLOOD COUNT 7.3 10^3/uL (4.0-10.5)
[2016-09-17] MEDS: LANSOPRAZOLE 30 MG TAB.RAP.DR PO SCH (06:37)
[2016-09-17] MEDS: HYDRALAZINE HCL 50 MG TABLET PO SCH ×3 (06:37→22:33)
[2016-09-17 06:55] LABS: ANION GAP 14 (5-19); BLOOD UREA NITROGEN 30 mg/dL (7-20); CALCIUM 8.8 mg/dL (8.4-10.2); CARBON DIOXIDE 28 mmol/L (22-30); CHLORIDE 96 mmol/L (98-107); CREATININE RESULT 1.65 mg/dL (0.52-1.25); GLUCOSE 184 mg/dL (75-110); POTASSIUM 4.8 mmol/L (3.6-5.0)
[2016-09-17] MEDS: IPRATROPIUM/ALBUTEROL 0.5-2.5 MG/3 ML AMPUL NEB SCH ×3 (07:42→19:49)
[2016-09-17] MEDS: INSULIN LISPRO 100 UNIT/ML 3 ML VIAL SUBCUT PRN ×3 (08:52→22:32)
--- NOTE | 2016-09-17 10:02 | PDOC TRANSFER SUMMARY ---
General Admission Date/PCP: 09/13/16 21:56 SUDEEP CHEUNG Transfer Date: 09/17/16 Resuscitation Status: Full Code - Transfer Medications Home Medications: Apixaban [Eliquis 5 mg Tablet] 5 mg PO Q12 07/03/16 B Complex & C No.20/Folic Acid [Renal Caps Softgel] 1 cap PO DAILY 07/03/16 Ergocalciferol (Vitamin D2) [Vitamin D2] 50,000 units PO ABDALLA 07/03/16 Ferrous Sulfate [Feosol 325 mg Tablet] 325 mg PO BID 07/03/16 Isosorbide Mononitrate [Imdur 30 mg Tablet.er] 30 mg PO DAILY 07/03/16 Pantoprazole Sodium [Protonix] 40 mg PO DAILY 07/03/16 Tiotropium [place]non[place] [Spiriva Handihaler 18 mcg/dose (30 Dose)] 1 cap IH DAILY 05/09 Transfer Medications: Current Medications Acetaminophen (Tylenol 325 Mg Tablet) 650 mg PO Q4HP PRN PRN Reason: pain or temp greater than 101F Stop: 10/13/16 21:55 Albuterol (Ventolin 0.083% Neb 2.5 Mg/3 Ml Ampul) 2.5 mg NEB RTQ4HP PRN PRN Reason: SHORTNESS OF BREATH Stop: 10/13/16 21:55 Albuterol/Ipratropium (Duoneb 3 Ml Ampul) 3 ml NEB [id number] DARINEL Stop: 10/14/16 07:59 Last Admin: 09/17/16 07:42 Dose: 3 ml Amlodipine Besylate (Norvasc 10 Mg Tablet) 10 mg PO DAILY DARINEL Stop: 10/14/16 09:59 Last Admin: 09/16/16 09:24 Dose: 10 mg Apixaban (Eliquis 5 Mg Tablet) 5 mg PO Q12 DARINEL Stop: 10/14/16 09:59 Last Admin: 09/16/16 22:27 Dose: 5 mg Aspirin (Ecotrin 81 Mg Ec Tablet) 81 mg PO DAILY [facility] Stop: 10/14/16 09:59 Last Admin: 09/16/16 09:22 Dose: 81 mg Dextrose (Dextrose Inj 50% Syringe (25 Gm/50 Ml)) 12.5 gm IV PRN PRN; Protocol PRN Reason: FOR BG 50-69 IN ALERT PATIENT Stop: 10/13/16 21:53 Dextrose (Dextrose Inj 50% Syringe (25 Gm/50 Ml)) 25 gm IV PRN PRN PRN Reason: Protocol Stop: 10/13/16 21:53 Docusate Sodium (Colace 100 Mg Capsule) 100 mg PO BID DARINEL Stop: 10/14/16 09:59 Last Admin: 09/16/16 18:05 Dose: 100 mg Doxazosin Mesylate (Cardura 4 Mg Tablet) 4 mg PO QHS DARINEL Stop: 10/14/16 21:59 Last Admin: 09/16/16 22:23 Dose: 4 mg Ergocalciferol (Drisdol 50,000 Unit (1.25mg) Capsule) 50,000 unit PO ABDALLA [facility] Stop: 10/15/16 08:59 Ferrous Sulfate (Feosol 325 Mg Tablet) 325 mg PO BID DARINEL Stop: 10/14/16 09:59 Last Admin: 09/16/16 18:05 Dose: 325 mg Furosemide (Lasix Inj/Pf 20 Mg/2 Ml Sdv) 20 mg IV TID DARINEL Stop: 10/14/16 13:59 Last Admin: 09/16/16 18:04 Dose: 20 mg Glucagon (Glucagen Inj 1 Mg Vial) 1 mg IM PRN PRN; Protocol PRN Reason: Evaluate for BG < 70 Stop: 10/13/16 21:53 Glucose (Glutose 40% Gel 15 Gm Tube) 15 gm PO PRN PRN; Protocol PRN Reason: FOR BG 50-69 IN ALERT PATIENT Stop: 10/13/16 21:53 Glucose (Glutose 40% Gel 15 Gm Tube) 30 gm PO PRN PRN; Protocol PRN Reason: FOR BG < 50 IN ALERT PATIENT Stop: 10/13/16 21:53 Guaifenesin (Robitussin Syrup 200 Mg/10 Ml Ud Cup) 200 mg PO Q4HP PRN PRN Reason: COUGH Stop: 10/13/16 21:55 Hydralazine HCl (Apresoline 50 Mg Tablet) 100 mg PO Q8 DARINEL Stop: 10/14/16 05:59 Last Admin: 09/17/16 06:37 Dose: 100 mg Linezolid (Zyvox Rtu 600 Mg/300 Ml Premixed) 300 mls @ 300 mls/hr IV Q12 DARINEL Stop: 09/21/16 09:59 Last Admin: 09/16/16 23:43 Dose: 300 ml Imipenem/Cilastatin Sodium 500 (mg/ Sodium Chloride) 100 mls @ 100 mls/hr IV Q6A DARINEL Stop: 09/21/16 20:59 Last Admin: 09/17/16 08:52 Dose: 500 mg Insulin Glargine (Lantus Insulin Inj 300 Unit/3 Ml Pen) 30 unit SUBCUT QHS DARINEL Stop: 10/15/16 18:59 Last Admin: 09/16/16 22:28 Dose: 30 unit Insulin Human Lispro (Humalog Insulin 100 Unit/1 Ml 3 Ml Vial) 0 - 12 unit SUBCUT ACHSP PRN PRN Reason: Protocol Stop: 10/13/16 21:53 Last Admin: 09/17/16 08:52 Dose: 6 unit Isosorbide Mononitrate (Imdur 30 Mg Tablet.Er) 30 mg PO DAILY DARINEL Stop: 10/14/16 09:59 Last Admin: 09/16/16 09:23 Dose: 30 mg Lactobacillus Acidophilus (Bacid 250 Mg Tablet) 500 mg PO BID DARINEL Stop: 10/15/16 17:59 Last Admin: 09/16/16 18:05 Dose: 500 mg Lansoprazole (Prevacid 30 Mg Odt Tablet) 30 mg PO Q6AM DARINEL Stop: 10/14/16 05:59 Last Admin: 09/17/16 06:37 Dose: 30 mg Metoprolol Succinate (Toprol Xl 50 Mg Tab.Sr) 50 mg PO QHS DARINEL Stop: 10/14/16 21:59 Last Admin: 09/16/16 22:22 Dose: 50 mg Multivit/Ca Carb/B Cmplx/FA/Prenat (Nephrocaps Multiple Vitamin Capsule) 1 cap PO DAILY DARINEL Stop: 10/14/16 09:59 Last Admin: 09/16/16 09:24 Dose: 1 cap Pharmacy Profile Note (Medication Communication Order) 1 each .NOTICE NR Stop: 10/13/16 21:59 Polyethylene Glycol (Miralax Powder 17 Gm/Packet) 17 gm PO DAILY DARINEL Stop: 10/14/16 09:59 Last Admin: 09/16/16 09:26 Dose: 17 gm Prednisone (Deltasone 20 Mg Tablet) 60 mg PO DAILY DARINEL Stop: 10/13/16 21:59 Last Admin: 09/16/16 09:23 Dose: 60 mg Sodium Chloride (Saline Flush 2.5 Ml Monoject Prefil Syrin) 2.5 ml IV Q8 DARINEL Stop: 10/13/16 21:59 Last Admin: 09/17/16 06:37 Dose: 2.5 ml Tiotropium Annona (Spiriva Handihaler 5 Cap/Kit (18 Mcg/Cap)) 1 cap IH DAILY DARINEL Stop: 10/14/16 09:59 Last Admin: 09/16/16 10:56 Dose: 1 cap - Allergies Allergies/Adverse Reactions: PPD black rubber mix Allergy (Verified 08/05/16 00:06) Physical Exam Vital Signs: Temp Pulse Resp BP Pulse Ox 97.6 F 59 L 14 150/57 H 98 09/17/16 07:31 09/17/16 07:42 09/17/16 07:42 09/17/16 07:31 09/17/16 07:42 Intake & Output 09/16/16 09/17/16 09/18/16 00:59 00:59 00:59 Intake Total 1714 3198 400 Output Total 1200 2110 75 Balance 514 1088 325 Weight 123.3 kg 123.3 kg 124 kg Results Laboratory Results: 09/17/16 05:09 09/17/16 05:09 09/17/16 09/17/16 05:09 05:09 WBC 7.3 RBC 3.30 L Hgb 8.0 L Hct 25.5 L MCV 77 L MCH 24.2 L MCHC 31.3 L RDW 19.3 H Plt Count 215 Seg Neutrophils % 86.7 H Lymphocytes % 7.1 L Monocytes % 6.0 Eosinophils % 0.0 Basophils % 0.2 Absolute Neutrophils 6.3 Absolute Lymphocytes 0.5 Absolute Monocytes 0.4 Absolute Eosinophils 0.0 Absolute Basophils 0.0 Sodium 138.0 Potassium 4.8 Chloride 96 L Carbon Dioxide 28 Anion Gap 14 BUN 30 H Creatinine 1.65 H Est GFR ( Amer) 49 L Est GFR (Non-Af Amer) 40 L Glucose 184 H Calcium 8.8 Impressions: Chest X-Ray 09/13/16 16:00 IMPRESSION: PROBABLE ASYMMETRIC PULMONARY EDEMA. UNDERLYING PNEUMONIA ALSO POSSIBLE.
--- NOTE | 2016-09-17 10:05 | PDOC TRANSFER SUMMARY ---
General - Admit/Disc Date/PCP Admission Date/Primary Care Provider: 09/13/16 21:56 SUDEEP CHEUNG Discharge Date: 09/17/16 - Discharge Diagnosis (1) Osteomyelitis of right foot Is this a current diagnosis for this admission?: YesSummary: Patient had recurrent debridement of his right foot A multiple bacteria were cultured sensitive to imipenem and linezolid 08/22/16 14:45 Gram Stain - Final Foot - Right Wound Culture - Final Enterobacter Cloacae Proteus Mirabilis Pseudomonas Aeruginosa Providencia Stuartii E.faecium Vre No Anaerobic Organisms Patient will be discharged on linezolid and imipenem for one month Patient to be followed on a weekly basis in the wound care clinic Repeat MRI may need to be scheduled as per general surgery to follow up improvement of the osteomyelitis (2) UTI (urinary tract infection) Is this a current diagnosis for this admission?: YesSummary: 09/13/16 16:40 Urine Culture - Final Clean Catch Midstream Proteus Mirabilis Proteus sensitive to imipenem (3) COPD exacerbation Is this a current diagnosis for this admission?: YesSummary: improved (4) Pneumonia Is this a current diagnosis for this admission?: YesSummary: Improved (5) Anemia Is this a current diagnosis for this admission?: YesSummary: Anemia of chronic disease Serum iron and B-12 were normal (6) Anticoagulated Is this a current diagnosis for this admission?: YesSummary: Continue Eliquis (7) Atrial fibrillation Is this a current diagnosis for this admission?: YesSummary: Fib flutter rate controlled (8) Diastolic CHF Is this a current diagnosis for this admission?: YesSummary: Chronic well compensated - Additional Information Resuscitation Status: Full Code Home Medications: Apixaban [Eliquis 5 mg Tablet] 5 mg PO Q12 07/03/16 B Complex & C No.20/Folic Acid [Renal Caps Softgel] 1 cap PO DAILY 07/03/16 Ergocalciferol (Vitamin D2) [Vitamin D2] 50,000 units PO ABDALLA 07/03/16 Ferrous Sulfate [Feosol 325 mg Tablet] 325 mg PO BID 07/03/16 Isosorbide Mononitrate [Imdur 30 mg Tablet.er] 30 mg PO DAILY 07/03/16 Pantoprazole Sodium [Protonix] 40 mg PO DAILY 07/03/16 Tiotropium [place] [Spiriva Handihaler 18 mcg/dose (30 Dose)] 1 cap IH DAILY 05/09 Furosemide [Lasix 40 mg Tablet] 40 mg PO DAILY #0 tablet 07/24/16 Hydralazine HCl [Apresoline 50 mg Tablet] 100 mg PO Q8 #0 tablet 07/24/16 Polyethylene Glycol 3350 [Miralax Powder 17 gm/Packet] 17 gm PO DAILY #0 powd.pack 07/24/16 Acetaminophen [Tylenol 325 mg Tablet] 650 mg PO Q4HP PRN tablet 08/13/16 Amlodipine Besylate [Norvasc 10 mg Tablet] 10 mg PO DAILY tablet 08/13/16 Aspirin [Adult Low Dose Aspirin EC] 81 mg PO DAILY #30 tablet. 08/13/16 Docusate Sodium [Colace 100 mg Capsule] 100 mg PO BID capsule 08/13/16 Doxazosin Mesylate [Cardura 4 mg Tablet] 4 mg PO QHS tablet 08/13/16 Epoetin Ernesto [Procrit Inj 20,000 Unit/1 ml Vial (Renal)] 20,000 unit SUBCUT Q7D ml 08/13/16 Insulin Glargine,Hum.rec.anlog [Lantus] 20 units SQ QHS #0 08/13/16 Insulin Lispro [Humalog Insulin (Lispro) 100 unit/mL] 0 - 12 unit SUBCUT ACHSP PRN unit 08/13/16 Levalbuterol HCl [Xopenex Neb 1.25 mg/3 ml Ampul] 1.25 mg NEB RTQ4HP PRN vial.neb 08/13/16 Metoprolol Succinate [Toprol Xl 50 mg Tab.sr] 50 mg PO QHS tab.sr.24h 08/13/16 History of Present Illness Admission Date/PCP: 09/13/16 21:56 SUDEEP CHEUNG Patient complains of: SOB History of Present Illness: -[place] male, with multiple chronic comorbidities, including diastolic congestive heart failure, insulin-dependent diabetes mellitus, atrial fibrillation, on Eliquis for same stage III chronic kidney disease, chronic open wound of right foot, currently undergoing daily dressing changes, who presents to the emergency room for evaluation of above complaint. Patient has been discussed with daytime hospitalist to discuss the patient with emergency room physician who evaluated the patient. Several day history of slowly progressive shortness of breath, in particular over the last 24 hours. No fever or chills, nausea vomiting, diarrhea or dysuria. No chest or abdominal pain. Mild dry cough. Hospitalized on our service August 04 of the of this year with final diagnoses including diastolic congestive heart failure exacerbation, osteomyelitis of the right foot. History and physical and discharge summary have been reviewed." He weaned off BiPAP 09/15 and is doing ok on supplemental O2. Subjective: Continues to complain of some dyspnea, wheezing, non-productive cough & weakness. He denies chest pain, palpitations, fevers, chills, nausea, vomiting, diarrhea. ROS: per HPI plus a total of 10 systems reviewed, pertinent positives and negatives noted above, remaining systems negative. Hospital Course Hospital Course: See above Patient will be discharged on IV antibiotics in ertapenem and Zosyn for 1 month Antibiotics to be reevaluated at the wound care clinic Patient will be scheduled to be seen in one week dressings. Dressing to right foot to be changed daily Wet-to-dry dressing and Kerlix Physical Exam Vital Signs: Temp Pulse Resp BP Pulse Ox 97.6 F 59 L 14 150/57 H 98 09/17/16 07:31 09/17/16 07:42 09/17/16 07:42 09/17/16 07:31 09/17/16 07:42 Intake & Output 09/16/16 09/17/16 09/18/16 00:59 00:59 00:59 Intake Total 1714 3198 400 Output Total 1200 2110 75 Balance 514 1088 325 Weight 123.3 kg 123.3 kg 124 kg General appearance: PRESENT: no acute distress, well-developed, well-nourished Head exam: PRESENT: atraumatic, normocephalic Eye exam: PRESENT: conjunctiva pink, EOMI, PERRLA. ABSENT: scleral icterus Ear exam: PRESENT: normal external ear exam Mouth exam: PRESENT: moist, tongue midline Neck exam: ABSENT: carotid bruit, JVD, lymphadenopathy, thyromegaly Respiratory exam: PRESENT: clear to auscultation cornell. ABSENT: rales, rhonchi, wheezes Cardiovascular exam: PRESENT: RRR. ABSENT: diastolic murmur, rubs, systolic murmur Pulses: PRESENT: normal dorsalis pedis pul Vascular exam: PRESENT: normal capillary refill GI/Abdominal exam: PRESENT: normal bowel sounds, soft. ABSENT: distended, guarding, mass, organolmegaly, rebound, tenderness Rectal exam: PRESENT: deferred Extremities exam: PRESENT: full ROM, other - Right foot is bandaged. ABSENT: calf tenderness, clubbing, pedal edema Neurological exam: PRESENT: awake, CN II-XII grossly intact. ABSENT: motor sensory deficit Psychiatric exam: PRESENT: appropriate affect, normal mood. ABSENT: homicidal ideation, suicidal ideation Skin exam: PRESENT: dry, intact, warm. ABSENT: cyanosis, rash Results Laboratory Results: 09/17/16 05:09 09/17/16 05:09 09/17/16 09/17/16 05:09 05:09 WBC 7.3 RBC 3.30 L Hgb 8.0 L Hct 25.5 L MCV 77 L MCH 24.2 L MCHC 31.3 L RDW 19.3 H Plt Count 215 Seg Neutrophils % 86.7 H Lymphocytes % 7.1 L Monocytes % 6.0 Eosinophils % 0.0 Basophils % 0.2 Absolute Neutrophils 6.3 Absolute Lymphocytes 0.5 Absolute Monocytes 0.4 Absolute Eosinophils 0.0 Absolute Basophils 0.0 Sodium 138.0 Potassium 4.8 Chloride 96 L Carbon Dioxide 28 Anion Gap 14 BUN 30 H Creatinine 1.65 H Est GFR ( Amer) 49 L Est GFR (Non-Af Amer) 40 L Glucose 184 H Calcium 8.8 Impressions: Chest X-Ray 09/13/16 16:00 IMPRESSION: PROBABLE ASYMMETRIC PULMONARY EDEMA. UNDERLYING PNEUMONIA ALSO POSSIBLE. Transfer Plan - Disposition Transfer Plan: Transferred back to [facility] today - Time Spent with Patient Time spent with patient: Greater than 30 Minutes
[2016-09-17] MEDS: FOLIC ACID/VITAMIN B COMP W-C CAPSULE PO SCH (10:48)
[2016-09-17] MEDS: AMLODIPINE BESYLATE 10 MG TABLET PO SCH (10:49)
[2016-09-17] MEDS: ASPIRIN 81 MG TABLET, ENT COATED PO SCH (10:49)
[2016-09-17] MEDS: DOCUSATE SODIUM 100 MG CAPSULE PO SCH ×2 (10:49→17:11)
[2016-09-17] MEDS: LACTOBACILLUS ACIDOPHILUS 250 MG TAB PO SCH ×2 (10:49→17:11)
[2016-09-17] MEDS: ISOSORBIDE MONONITRATE 30 MG TAB.ER.24H PO SCH (10:50)
[2016-09-17] MEDS: LINEZOLID 300 ML IV SCH ×2 (10:50→22:50)
[2016-09-17] MEDS: FERROUS SULFATE 325 MG TABLET PO SCH ×2 (10:50→17:12)
[2016-09-17] MEDS: FUROSEMIDE INJ/PF 20 MG/2 ML SDV IV SCH ×3 (10:50→17:12)
[2016-09-17] MEDS: APIXABAN 5 MG TABLET PO SCH (10:51)
[2016-09-17] MEDS: TIOTROPIUM BROMIDE DPI 5 CAP/KIT (18 MCG/CAP) IH SCH (10:54)
[2016-09-17] MEDS: POLYETHYLENE GLYCOL 3350 POWDER 17 GM/1 PACKET PO SCH (10:56)
[2016-09-17] MEDS: PREDNISONE 20 MG TABLET PO SCH (10:56)
[2016-09-17] MEDS: INSULIN GLARGINE,HUM.REC.ANLOG 300 UNIT/3 ML INSULN.PEN SUBCUT SCH (22:33)
[2016-09-17] MEDS: DOXAZOSIN MESYLATE 4 MG TABLET PO SCH (22:34)
[2016-09-17] MEDS: METOPROLOL SUCCINATE 50 MG TAB.SR.24H PO SCH (22:34)
[2016-09-18] MEDS: IMIPENEM/CILASTATIN SODIUM 500 MG in NORMAL SALINE 100 ML IV SCH ×3 (02:47→14:06)
[2016-09-18 06:27] LABS: ABSOLUTE LYMPHOCYTES (AUTO) 0.5 10^3/uL (0.5-4.7); ABSOLUTE MONOCYTES (AUTO) 0.5 10^3/uL (0.1-1.4); ABSOLUTE NEUT (AUTO) 5.6 10^3/uL (1.7-8.2); BASOPHILS % (AUTO) 0.1 % (0-2); EOSINOPHILS % (AUTO) 0.2 % (0-6); HEMATOCRIT 26.9 % (37.9-51.0); HEMOGLOBIN 8.5 g/dL (13.5-17.0); HGB HCT DIFFERENCE -1.4; LYMPHOCYTES % (AUTO) 7.5 % (13-45); MEAN CORPUSCULAR HEMOGLOBIN 24.3 pg (27.0-33.4); MEAN CORPUSCULAR HGB CONC 31.7 g/dL (32.0-36.0); MEAN CORPUSCULAR VOLUME 77 fl (80-97); RED CELL DISTRIBUTION WIDTH 19.8 % (11.5-14.0); SEGMENTED NEUTROPHILS % (AUTO) 85.2 % (42-78); WHITE BLOOD COUNT 6.5 10^3/uL (4.0-10.5)
[2016-09-18 06:30] LABS: PROTHROMBIN TIME 15.6 SEC (11.4-15.4)
[2016-09-18] MEDS: HYDRALAZINE HCL 50 MG TABLET PO SCH ×2 (06:40→14:05)
[2016-09-18] MEDS: LANSOPRAZOLE 30 MG TAB.RAP.DR PO SCH (06:40)
[2016-09-18] MEDS: IPRATROPIUM/ALBUTEROL 0.5-2.5 MG/3 ML AMPUL NEB SCH ×2 (07:59→13:50)
[2016-09-18] MEDS: INSULIN LISPRO 100 UNIT/ML 3 ML VIAL SUBCUT PRN (08:21)
--- NOTE | 2016-09-18 10:38 | Progress Note ---
Provider Note Provider Note: 09/18/2016 PICC line was inserted today Patient is stable no change in plan of care Patient to be discharged to SNF facility
[2016-09-18] MEDS: LACTOBACILLUS ACIDOPHILUS 250 MG TAB PO SCH (10:49)
[2016-09-18] MEDS: FERROUS SULFATE 325 MG TABLET PO SCH (10:50)
[2016-09-18] MEDS: FOLIC ACID/VITAMIN B COMP W-C CAPSULE PO SCH (10:51)
[2016-09-18] MEDS: ASPIRIN 81 MG TABLET, ENT COATED PO SCH (10:51)
[2016-09-18] MEDS: DOCUSATE SODIUM 100 MG CAPSULE PO SCH (10:51)
[2016-09-18] MEDS: TIOTROPIUM BROMIDE DPI 5 CAP/KIT (18 MCG/CAP) IH SCH (10:52)
[2016-09-18] MEDS: LINEZOLID 300 ML IV SCH (10:52)
[2016-09-18] MEDS: FUROSEMIDE INJ/PF 20 MG/2 ML SDV IV SCH ×2 (10:53→14:05)
[2016-09-18] MEDS: ISOSORBIDE MONONITRATE 30 MG TAB.ER.24H PO SCH (10:54)
[2016-09-18] MEDS: AMLODIPINE BESYLATE 10 MG TABLET PO SCH (10:54)
[2016-09-18] MEDS: POLYETHYLENE GLYCOL 3350 POWDER 17 GM/1 PACKET PO SCH (10:56)
[2016-09-18] MEDS ORDERED: NORMAL SALINE 10 ML SDV (AFTER EACH USE) IV PRN (10:57)
[2016-09-18] MEDS: PREDNISONE 20 MG TABLET PO SCH (10:57)
[2016-09-18 14:07] VITALS: BP 126/46
[2016-09-18] MEDS ORDERED: NORMAL SALINE 10 ML SDV (SCHEDULED) IV SCH (22:00)
== END 2016-09-18 17:41 | DRG 264 ==
LOC: ER 15:39 → UNDOADMIN 18:32 → EH 18:32 → 3W 09-14 00:05
PROC: 5A09457 Assistance with Respiratory Ventilation, 24-96 Consecutive Hours, Continuous Positive Airway Pressure (ICD-10-PCS; 2016-09-13)
PROC: 0JBQ0ZZ Excision of Right Foot Subcutaneous Tissue and Fascia, Open Approach (ICD-10-PCS; principal; 2016-09-14)
PROC: 02HV33Z Insertion of Infusion Device into Superior Vena Cava, Percutaneous Approach (ICD-10-PCS; 2016-09-18)
PROC: B548ZZA Ultrasonography of Superior Vena Cava, Guidance (ICD-10-PCS; 2016-09-18)
DX: I13.0 Hypertensive heart and chronic kidney disease with heart failure and stage 1 through stage 4 chronic kidney disease, or unspecified chronic kidney disease (principal); I50.33 Acute on chronic diastolic (congestive) heart failure; J96.01 Acute respiratory failure with hypoxia; J18.9 Pneumonia, unspecified organism; N39.0 Urinary tract infection, site not specified; M86.571 Other chronic hematogenous osteomyelitis, right ankle and foot; J44.1 Chronic obstructive pulmonary disease with (acute) exacerbation; J44.0 Chronic obstructive pulmonary disease with (acute) lower respiratory infection; E11.69 Type 2 diabetes mellitus with other specified complication; J44.9 Chronic obstructive pulmonary disease, unspecified; N18.3 Chronic kidney disease, stage 3 (moderate); E11.22 Type 2 diabetes mellitus with diabetic chronic kidney disease; I48.2 Chronic atrial fibrillation; G47.33 Obstructive sleep apnea (adult) (pediatric); E11.621 Type 2 diabetes mellitus with foot ulcer; L97.513 Non-pressure chronic ulcer of other part of right foot with necrosis of muscle; E11.65 Type 2 diabetes mellitus with hyperglycemia; G89.29 Other chronic pain; D63.1 Anemia in chronic kidney disease; I87.8 Other specified disorders of veins; E66.9 Obesity, unspecified; Z68.38 Body mass index [BMI] 38.0-38.9, adult; B96.4 Proteus (mirabilis) (morganii) as the cause of diseases classified elsewhere; I89.0 Lymphedema, not elsewhere classified; F32.9 Major depressive disorder, single episode, unspecified; Z86.14 Personal history of Methicillin resistant Staphylococcus aureus infection; Z89.421 Acquired absence of other right toe(s); Z79.4 Long term (current) use of insulin; Z82.49 Family history of ischemic heart disease and other diseases of the circulatory system; Z83.3 Family history of diabetes mellitus; Z82.3 Family history of stroke; Z79.82 Long term (current) use of aspirin; Z79.899 Other long term (current) drug therapy; Z79.01 Long term (current) use of anticoagulants; Z85.46 Personal history of malignant neoplasm of prostate
CPT/HCPCS: 36415; 36569; 71010; 76937; 77001; 80048; 80053; 81001; 82550; 82553; 82962; 83735; 83880; 84100; 84484; 85025; 85610; 87040; 87070; 87086; 87088; 87186; 87205; 93005; 93010; 94640; 94660; 94799; 99285; C1769; J0743; J1642; J1815; J1940; J1956; J2020; J3490; J7512; J7620

== ENCOUNTER → 2016-09-24 | Outpatient (CLI) | payer MEDICARE, OTHER | LOC: OD 12:07 | PROVIDERS: ATTEND Internal Medicine | DX: D50.9 Iron deficiency anemia, unspecified (principal); I50.9 Heart failure, unspecified; M86.9 Osteomyelitis, unspecified; I12.9 Hypertensive chronic kidney disease with stage 1 through stage 4 chronic kidney disease, or unspecified chronic kidney disease; N18.9 Chronic kidney disease, unspecified | CPT/HCPCS: 36415; 85652; 86140 ==

== ENCOUNTER 2016-10-03 01:54 | Inpatient (IN) | payer MEDICARE, OTHER ==
--- NOTE | 2016-10-03 02:18 | ER Document Report ---
ED GI Bleed / Rectal Pain - General Chief Complaint: Rectal Bleeding Stated Complaint: RECTAL BLEEDING Time seen by provider: 02:10 Notes: Patient is a 81-year-old male that comes emergency department for chief complaint of blood in his stools. [id number], they reported the patient had dark-colored stools with trace amounts of bright red blood. Patient denies any abdominal pain. This was only in a single bowel movement. Patient states he has had a normal colonoscopy within the past year. Patient is on Eliquis for afib. Patient denies any other symptoms including nausea, vomiting, constipation, chest pain, flank pain. Past medical history is extensive including type II diabetes, chronic kidney disease, COPD, hypertension, prostate cancer for which he completed treatment years ago according to patient. TRAVEL OUTSIDE OF THE [place] IN LAST 30 DAYS: No - Related Data Allergies/Adverse Reactions: PPD black rubber mix Allergy (Verified 08/05/16 00:06) Past Medical History - General Information source: Patient - Social History Smoking Status: Never Smoker Frequency of alcohol use: None Drug Abuse: None Lives with: Longterm Family History: CAD, CVA, DM - Past Medical History Cardiac Medical History: Reports: Hx Atrial Fibrillation, Hx Congestive Heart Failure - Diastolic, Hx Hypercholesterolemia, Hx Hypertension Denies: Hx DVT, Hx Heart Attack, Hx Pulmonary Embolism Pulmonary Medical History: Reports: Hx COPD, Hx Sleep Apnea Neurological Medical History: Denies: Hx Seizures Endocrine Medical History: Reports: Hx Diabetes Mellitus Type 1, Hx Diabetes Mellitus Type 2. Denies: Hx Hyperthyroidism, Hx Hypothyroidism Malignancy Medical History: Reports Hx Prostate Cancer GI Medical History: Denies: Hx Cirrhosis, Hx Gastroesophageal Reflux Disease, Hx Hepatitis Musculoskeltal Medical History: Denies Hx Arthritis Psychiatric Medical History: Reports: Hx Depression Infectious Medical History: Reports: Hx MRSA. 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 Denies: Hx Adenoidectomy - Immunizations Hx Diphtheria, Pertussis, Tetanus Vaccination: Yes Hx Pneumococcal Vaccination: 06/23/16 Review of Systems - Review of Systems Constitutional: No symptoms reported EENT: No symptoms reported Cardiovascular: No symptoms reported Respiratory: No symptoms reported Gastrointestinal: See HPI Genitourinary: No symptoms reported Male Genitourinary: No symptoms reported Musculoskeletal: No symptoms reported Skin: No symptoms reported Hematologic/Lymphatic: No symptoms reported Neurological/Psychological: No symptoms reported Physical Exam - Vital signs Vitals: Pulse Ox 99 10/03/16 03:00 Interpretation: Normal - General General appearance: Appears well, Alert In distress: None - HEENT Head: Normocephalic, Atraumatic Eyes: Normal Pupils: PERRL - Respiratory Respiratory status: No respiratory distress Chest status: Nontender Breath sounds: Normal. No: Decreased air movement, Wheezing Chest palpation: Normal - Cardiovascular Rhythm: Irregularly irregular Heart sounds: Normal auscultation, S1 appreciated, S2 appreciated - Abdominal Inspection: Normal Distension: No distension Bowel sounds: Normal Tenderness: Nontender. No: Tender, Guarding - Back Back: Normal, Nontender - Extremities General upper extremity: Normal inspection, Nontender, Normal color, Normal ROM , Normal temperature General lower extremity: Other - Patient with wound VAC attached to right lower extremity foot/wound - Neurological Neuro grossly intact: Yes Cognition: Normal Orientation: AAOx4 [place] Coma Scale Eye Opening: Spontaneous Bren Coma Scale Verbal: Oriented [place] Coma Scale Motor: Obeys Commands [place] Coma Scale Total: 15 Speech: Normal Motor strength normal: LUE, RUE, LLE, RLE Sensory: Normal - Psychological Associated symptoms: Normal affect, Normal mood - Skin Skin Temperature: Warm Skin Moisture: Dry Skin Color: Normal Course - Re-evaluation Re-evalutation: Records 01/09/2015 patient had a endoscopy and colonoscopy with multiple polyps , small hiatal hernia, mild gastritis, some internal hemorrhoids. No hemorrhoids noted on my examination. No current heavy bleeding noted although there is questionable blood in the stool on gross examination and positive stool on testing. Patient is not hypotensive, not tachycardic. Patient is on blood thinner Eliquis. Patient became sleepy, states he started to feel strange, blood glucose was checked and found to be very low at 29, patient was immediately given an amp of dextrose, given peanut butter crackers, blood glucose in the 100s, will monitor closely. CBC shows microcytic anemia with hemoglobin of 6.5, ordering blood products for transfusion. Patient reevaluated again, remains responsive, normotensive, not tachycardic. Has not had a recent bowel movement. Patient was discussed with Dr. Cortez. 10/03/16 Patient receiving transfusion, has not become hypotensive, on reevaluation is has not had decompensation. Patient was able to eat, blood glucose initially increased, however this began to downtrend, patient will be started on dextrose continuous IV fluids. Discussed with Dr. Braswell, internal medicine, patient will be admitted to the ICU. - Vital Signs Vital signs: Temp Pulse Resp BP Pulse Ox 97.6 F 21 H 158/63 H 100 10/03/16 06:58 10/03/16 07:01 10/03/16 07:01 10/03/16 07:01 - Laboratory Result Diagrams: 10/03/16 03:06 10/03/16 03:06 Laboratory results interpreted by me: 10/03/16 10/03/16 10/03/16 03:06 03:06 03:09 RBC 2.59 L Hgb 6.5 L Hct 20.0 L MCV 77 L MCH 25.2 L RDW 20.5 H Plt Count 84 L Seg Neutrophils % 79.3 H Lymphocytes % 12.2 L PT APTT BUN 26 H Creatinine 1.65 H Est GFR ( Amer) 49 L Est GFR (Non-Af Amer) 40 L Glucose 28 L* POC Glucose 49 L Total Protein 5.7 L Albumin 2.7 L Crossmatch 10/03/16 10/03/16 10/03/16 03:21 03:21 03:27 RBC Hgb Hct MCV MCH RDW Plt Count Seg Neutrophils % Lymphocytes % PT 16.2 H APTT 44.5 H BUN Creatinine Est GFR ( Amer) Est GFR (Non-Af Amer) Glucose POC Glucose < 30 L* Total Protein Albumin Crossmatch See Detail 10/03/16 03:56 RBC Hgb Hct MCV MCH RDW Plt Count Seg Neutrophils % Lymphocytes % PT APTT BUN Creatinine Est GFR ( Amer) Est GFR (Non-Af Amer) Glucose POC Glucose 115 H Total Protein Albumin Crossmatch Critical Care Note - Critical Care Note Total time excluding time spent on procedures (mins): 40 - GI bleed, anemia requiring transfusion, hypoglycemia Comments: Please allow 40 minutes of critical care time for treatment of patient with lower GI bleed, on blood thinners, anemia requiring transfusion, hypoglycemia requiring dextrose and monitoring. Multiple re-evaluations. Consultation of admission to the ICU. Discharge - Discharge Clinical Impression: Lower GI bleed, Anemia requiring transfusions, Hypoglycemia Condition: Serious Disposition: ADMITTED INPATIENT Admitting Provider: Hospitalist Unit Admitted: ICU
[2016-10-03 03:30] LABS: ALANINE AMINOTRANSFERASE 44 U/L (21-72); ALBUMIN 2.7 g/dL (3.5-5.0); ALKALINE PHOSPHATASE 66 U/L (38-126); ANION GAP 12 (5-19); ASPARTATE AMINO TRANSFERASE 37 U/L (17-59); BILIRUBIN,DIRECT 0.2 mg/dL (0.0-0.4); BILIRUBIN,TOTAL 0.6 mg/dL (0.2-1.3); BLOOD UREA NITROGEN 26 mg/dL (7-20); CALCIUM 8.5 mg/dL (8.4-10.2); CARBON DIOXIDE 29 mmol/L (22-30); CHLORIDE 101 mmol/L (98-107); CREATININE RESULT 1.65 mg/dL (0.52-1.25); POTASSIUM 4.2 mmol/L (3.6-5.0); SODIUM 141.5 mmol/L (137-145); TOTAL PROTEIN 5.7 g/dL (6.3-8.2)
[2016-10-03] MEDS ORDERED: DEXTROSE 50%-WATER 25 GM/50 ML DISP.SYRIN IV ONE ×3 (03:32→03:58)
[2016-10-03 03:59] LABS: GLUCOSE 28 mg/dL (75-110)
[2016-10-03 04:01] LABS: ABSOLUTE LYMPHOCYTES (AUTO) 0.7 10^3/uL (0.5-4.7); ABSOLUTE MONOCYTES (AUTO) 0.4 10^3/uL (0.1-1.4); ABSOLUTE NEUT (AUTO) 4.7 10^3/uL (1.7-8.2); BASOPHILS % (AUTO) 0.6 % (0-2); EOSINOPHILS % (AUTO) 0.4 % (0-6); HGB HCT DIFFERENCE -0.5; LYMPHOCYTES % (AUTO) 12.2 % (13-45); MEAN CORPUSCULAR HEMOGLOBIN 25.2 pg (27.0-33.4); MEAN CORPUSCULAR HGB CONC 32.6 g/dL (32.0-36.0); MEAN CORPUSCULAR VOLUME 77 fl (80-97); MONOCYTES % (AUTO) 7.5 % (3-13); RED BLOOD COUNT 2.59 10^6/uL (4.35-5.55); RED CELL DISTRIBUTION WIDTH 20.5 % (11.5-14.0); SEGMENTED NEUTROPHILS % (AUTO) 79.3 % (42-78); WHITE BLOOD COUNT 5.9 10^3/uL (4.0-10.5)
[2016-10-03] MEDS ORDERED: NORMAL SALINE 250 ML IV PRN ×2 (04:01)
[2016-10-03 04:02] LABS: HEMOGLOBIN 6.5 g/dL (13.5-17.0)
[2016-10-03 04:31] LABS: PROTHROMBIN TIME 16.2 SEC (11.4-15.4)
[2016-10-03 04:32] LABS: PARTIAL THROMBOPLASTIN TIME 44.5 SEC (23.5-35.8)
[2016-10-03] MEDS ORDERED: DEXTROSE 10%-WATER 1,000 ML IV PRN (04:57)
[2016-10-03] MEDS ORDERED: GLUCAGON,HUMAN RECOMB 1 MG INJ IM PRN (04:58)
[2016-10-03] MEDS ORDERED: ACETAMINOPHEN 325 MG TABLET PO PRN (04:58)
[2016-10-03] MEDS ORDERED: ONDANSETRON HCL INJ/PF 4 MG/2 ML SDV IV PRN (04:58)
[2016-10-03] MEDS ORDERED: INSULIN LISPRO 100 UNIT/ML 3 ML VIAL SUBCUT PRN (04:58)
[2016-10-03] MEDS ORDERED: DEXTROSE 40% GEL 15 GM TUBE PO PRN ×2 (04:58)
[2016-10-03] MEDS ORDERED: POTASSI CL 20 MEQ/D5NS 1L 20 MEQ/1,000 ML RTUINJ IV ONE (05:01)
[2016-10-03] MEDS ORDERED: PANTOPRAZOLE SODIUM 40 MG VIAL IV PRN (05:23)
[2016-10-03] MEDS ORDERED: PANTOPRAZOLE SODIUM 80 MG in NORMAL SALINE 100 ML IV ONE (05:30)
[2016-10-03] MEDS: NORMAL SALINE 100 ML with PANTOPRAZOLE SODIUM 80 MG IV PRN ×2 (06:23)
--- NOTE | 2016-10-03 06:52 | PDOC H&P ---
History of Present Illness Admission Date/PCP: 10/03/16 04:59 SUDEEP CHEUNG Patient complains of: Dark-colored stools History of Present Illness: CHARLA WEBB JR is a 81 year old male with an extensive past medical history of diabetes, diastolic heart failure, A. fib on Eliquis, lower extremity venous stasis, morbid obesity, obstructive sleep apnea, prostate cancer, chronic kidney disease, COPD, diabetic foot ulcer with osteomyelitis on imipenem and linezolid. Within his usual state of health until noted by detention staff to have dark-colored stool with trace bright red blood without abdominal pain nausea vomiting or chest pain. He's brought to the emergency room for evaluation where his found to have altered mental status and a blood sugar of 29 , hemoglobin of 6.5 from a baseline of 9, thrombocytopenia of 84 from baseline of 200, he started on dextrose ordered 2 units of pack red blood cells referred to the hospitalist for admission. Patient is a poor historian given his hypoglycemia having Accu-Cheks every hour on D5 half-normal saline. Past Medical History Cardiac Medical History: Reports: Atrial Fibrillation, Congestive Heart Failure - Diastolic, Hyperlipidema, Hypertension Denies: DVT, Myocardial Infarction, Pulmonary Embolism Pulmonary Medical History: Reports: Chronic Obstructive Pulmonary Disease (COPD) , Sleep Apnea Neurological Medical History: Denies: Seizures Endocrine Medical History: Reports: Diabetes Mellitus Type 1 Denies: Hyperthyroidism, Hypothyroidism GI Medical History: Denies: Cirrhosis, Gastroesophageal Reflux Disease, Hepatitis Musculoskeltal Medical History: Denies: Arthritis Skin History Note: Lateral right foot diabetic ulcer with wound VAC, chronic venous stasis bilaterally with +3 edema Psychiatric Medical History: Reports: Depression Hematology: Reports: Anemia Infectious Medical History: Reports: Methicillin-Resistant Staph Aureus Past Surgical History Past Surgical History: Reports: Orthopedic Surgery - Right fifth metatarsal amputation, Other - Nasal surgery many years ago while in the [employer]. Social History Information Source: [facility] Records Lives with: Usp Smoking Status: Never Smoker Frequency of Alcohol Use: None Hx Recreational Drug Use: No Drugs: None Hx Prescription Drug Abuse: No - Advance Directive Resuscitation Status: Full Code Family History Family History: CAD, CVA, DM Parental Family History Reviewed: Yes Children Family History Reviewed: Yes Sibling(s) Family History Reviewed.: Yes Medication/Allergy Home Medications: Apixaban [Eliquis 5 mg Tablet] 5 mg PO Q12 07/03/16 B Complex & C No.20/Folic Acid [Renal Caps Softgel] 1 cap PO DAILY 07/03/16 Ergocalciferol (Vitamin D2) [Vitamin D2] 50,000 units PO ABDALLA 07/03/16 Ferrous Sulfate [Feosol 325 mg Tablet] 325 mg PO BID 07/03/16 Isosorbide Mononitrate [Imdur 30 mg Tablet.er] 30 mg PO DAILY 07/03/16 Pantoprazole Sodium [Protonix] 40 mg PO DAILY 07/03/16 Tiotropium [place] [Spiriva Handihaler 18 mcg/dose (30 Dose)] 1 cap IH DAILY 05/09 Furosemide [Lasix 40 mg Tablet] 40 mg PO DAILY #0 tablet 07/24/16 Hydralazine HCl [Apresoline 50 mg Tablet] 100 mg PO Q8 #0 tablet 07/24/16 Polyethylene Glycol 3350 [Miralax Powder 17 gm/Packet] 17 gm PO DAILY #0 powd.pack 07/24/16 Acetaminophen [Tylenol 325 mg Tablet] 650 mg PO Q4HP PRN tablet 08/13/16 Amlodipine Besylate [Norvasc 10 mg Tablet] 10 mg PO DAILY tablet 08/13/16 Aspirin [Adult Low Dose Aspirin EC] 81 mg PO DAILY #30 tablet. 08/13/16 Docusate Sodium [Colace 100 mg Capsule] 100 mg PO BID capsule 08/13/16 Doxazosin Mesylate [Cardura 4 mg Tablet] 4 mg PO QHS tablet 08/13/16 Epoetin Ernesto [Procrit Inj 20,000 Unit/1 ml Vial (Renal)] 20,000 unit SUBCUT Q7D ml 08/13/16 Insulin Lispro [Humalog Insulin (Lispro) 100 unit/mL] 0 - 12 unit SUBCUT ACHSP PRN unit 08/13/16 Levalbuterol HCl [Xopenex Neb 1.25 mg/3 ml Ampul] 1.25 mg NEB RTQ4HP PRN vial.neb 08/13/16 Metoprolol Succinate [Toprol Xl 50 mg Tab.sr] 50 mg PO QHS tab.sr.24h 08/13/16 Imipenem/Cilastatin Sodium [Imipenem-Cilastatin 500 mg Vl] 500 mg IV Q6H #120 vial 09/17/16 Insulin Glargine,Hum.rec.anlog [Lantus Insulin 100 Unit/mL] 30 unit SUBCUT QHS # 1 insuln.pen 09/17/16 Linezolid [Zyvox RTU 600 mg/300 ml Premixed] 600 mg IV Q12 #60 rtupb 09/17/16 Prednisone [Deltasone 20 mg Tablet] 40 mg PO DAILY #30 tablet 09/17/16 Allergies/Adverse Reactions: PPD black rubber mix Allergy (Verified 08/05/16 00:06) Review of Systems ROS unobtainable: Due to mental status Physical Exam General appearance: PRESENT: disheveled, morbidly obese Head exam: PRESENT: atraumatic, normocephalic Eye exam: PRESENT: conjunctiva pink, EOMI, PERRLA. ABSENT: scleral icterus Ear exam: PRESENT: normal external ear exam Mouth exam: PRESENT: moist, tongue midline Neck exam: ABSENT: carotid bruit, JVD, lymphadenopathy, thyromegaly Respiratory exam: PRESENT: accessory muscle use, crackles, prolonged expiratory phas, symmetrical, tachypnea. ABSENT: stridor, wheezes Cardiovascular exam: PRESENT: irregular rhythm. ABSENT: diastolic murmur, rubs , systolic murmur Pulses: PRESENT: normal dorsalis pedis pul Vascular exam: PRESENT: normal capillary refill GI/Abdominal exam: PRESENT: normal bowel sounds, soft. ABSENT: distended, guarding, mass, organolmegaly, rebound, tenderness Rectal exam: PRESENT: deferred, heme (+) stool. ABSENT: hemorrhoids Extremities exam: PRESENT: pedal edema, tenderness, +2 edema. ABSENT: joint swelling Musculoskeletal exam: PRESENT: full ROM Neurological exam: PRESENT: altered, CN II-XII grossly intact Psychiatric exam: PRESENT: appropriate affect, normal mood. ABSENT: homicidal ideation, suicidal ideation Skin exam: PRESENT: other - Lateral right foot with wound VAC Assessment & Plan - Diagnosis (1) Hypoglycemia Is this a current diagnosis for this admission?: YesPlan: Patient received insulin despite poor by mouth intake, currently receiving D5 half with hypoglycemic protocol every hour Accu-Cheks every admitted to the ICU (2) Lower GI bleed Is this a current diagnosis for this admission?: YesPlan: Recent normal colonoscopy though bleeding likely unmasked by Xarelto use and thrombocytopenia, he will receive 2 units of pack red blood cells reevaluation of CBC discontinuation of linezolid given likely cause of thrombocytopenia (3) Thrombocytopenia Is this a current diagnosis for this admission?: YesPlan: Likely secondary to the linezolid will be held with follow-up CBC for evaluation (4) Anemia requiring transfusions Is this a current diagnosis for this admission?: YesPlan: Acute hemorrhage likely secondary to anticoagulated state on Xarelto and thrombocytopenia, Xarelto continued Glynase fluid discontinued secondary to likely thrombocytopenia cause follow-up reevaluation of CBC (5) Morbid obesity Qualifiers: Obesity type: with alveolar hypoventilation Qualified Code(s): 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
[2016-10-03] MEDS ORDERED: VANCOMYCIN HCL 1,000 MG in DEXTROSE 5%-WATER 250 ML IV ONE (07:18)
[2016-10-03] MEDS ORDERED: VANCOMYCIN HCL 0 MG in DEXTROSE 5%-WATER 250 ML IV NR ×2 (07:30→17:00)
[2016-10-03] MEDS: DEXTROSE 50%-WATER 25 GM/50 ML DISP.SYRIN IV PRN ×5 (08:42→22:11)
[2016-10-03] MEDS ORDERED: VANCOMYCIN HCL 1,500 MG in DEXTROSE 5%-WATER 250 ML IV ONE (09:00)
[2016-10-03] MEDS: DOCUSATE SODIUM 100 MG CAPSULE PO SCH ×2 (11:06→17:26)
[2016-10-03] MEDS: IPRATROPIUM/ALBUTEROL 0.5-2.5 MG/3 ML AMPUL NEB PRN (12:56)
[2016-10-03] MEDS: DEXTROSE 10%-WATER 1,000 ML IV PRN (16:03)
[2016-10-03 16:12] LABS: HEMATOCRIT 25.7 % (37.9-51.0); HEMOGLOBIN 8.5 g/dL (13.5-17.0); HGB HCT DIFFERENCE -0.2; MEAN CORPUSCULAR HEMOGLOBIN 26.3 pg (27.0-33.4); MEAN CORPUSCULAR HGB CONC 33.1 g/dL (32.0-36.0); MEAN CORPUSCULAR VOLUME 80 fl (80-97); RED BLOOD COUNT 3.23 10^6/uL (4.35-5.55); RED CELL DISTRIBUTION WIDTH 20.1 % (11.5-14.0); WHITE BLOOD COUNT 7.7 10^3/uL (4.0-10.5)
--- NOTE | 2016-10-03 18:06 | PDOC CONSULTATION ---
Consultation Consult Date: 10/03/16 Attending physician:: SHADI SHRESTHA Consult reason:: possible upper GI bleed History of Present Illness Admission Date/PCP: 10/03/16 04:59 SUDEEP CHEUNG History of Present Illness: patient was admitted to the ICU with Dr Miller following patient was seen by Dr Braswell who had requested the consult patient with multiple comorbidities ? of whether had is having an upper GI bleed has had a drop of his Hgb along with dark colored stools he was also noted to have some bright red blood per rectum patient noted to be anticoagulated as well was recently noted to have a profound thrombocytopenia felt to be due to use of Linezolid , although ? if could be heparin induced as well since has had previous hospitalization Hgb is low it looks as though he had an EGD done with Dr Pal in 2014 I cannot find a colonoscopy report however unless it was done as an outpatient currently in the ICU Past Medical History Cardiac Medical History: Reports: Atrial Fibrillation, Congestive Heart Failure - Diastolic, Hyperlipidema, Hypertension Denies: DVT, Myocardial Infarction, Pulmonary Embolism Pulmonary Medical History: Reports: Chronic Obstructive Pulmonary Disease (COPD) , Sleep Apnea Neurological Medical History: Denies: Seizures Endocrine Medical History: Reports: Diabetes Mellitus Type 1, Diabetes Mellitus Type 2 Denies: Hyperthyroidism, Hypothyroidism GI Medical History: Denies: Cirrhosis, Gastroesophageal Reflux Disease, Hepatitis Musculoskeltal Medical History: Denies: Arthritis Psychiatric Medical History: Reports: Depression Hematology: Reports: Anemia Infectious Medical History: Reports: Methicillin-Resistant Staph Aureus Past Surgical History Past Surgical History: Reports: Orthopedic Surgery - Right fifth metatarsal amputation, Other - Nasal surgery many years ago while in the [employer]. Social History Lives with: Intermediate Smoking Status: Former Smoker Frequency of Alcohol Use: None Hx Recreational Drug Use: No Drugs: None Hx Prescription Drug Abuse: No - Advance Directive Resuscitation Status: Full Code Family History Family History: CAD, CVA, DM Parental Family History Reviewed: Yes Children Family History Reviewed: Unknown Sibling(s) Family History Reviewed.: Unknown Medication/Allergy Home Medications: Apixaban [Eliquis 5 mg Tablet] 5 mg PO Q12 07/03/16 B Complex & C No.20/Folic Acid [Renal Caps Softgel] 1 cap PO DAILY 07/03/16 Ergocalciferol (Vitamin D2) [Vitamin D2] 50,000 units PO ABDALLA 07/03/16 Ferrous Sulfate [Feosol 325 mg Tablet] 325 mg PO BID 07/03/16 Isosorbide Mononitrate [Imdur 30 mg Tablet.er] 30 mg PO DAILY 07/03/16 Tiotropium [place] [Spiriva Handihaler 18 mcg/dose (30 Dose)] 1 cap IH DAILY 05/09 Furosemide [Lasix 40 mg Tablet] 40 mg PO DAILY #0 tablet 07/24/16 Hydralazine HCl [Apresoline 50 mg Tablet] 100 mg PO Q8 #0 tablet 07/24/16 Polyethylene Glycol 3350 [Miralax Powder 17 gm/Packet] 17 gm PO DAILY #0 powd.pack 07/24/16 Amlodipine Besylate [Norvasc 10 mg Tablet] 10 mg PO DAILY tablet 08/13/16 Aspirin [Adult Low Dose Aspirin EC] 81 mg PO DAILY #30 tablet. 08/13/16 Docusate Sodium [Colace 100 mg Capsule] 100 mg PO BID capsule 08/13/16 Doxazosin Mesylate [Cardura 4 mg Tablet] 4 mg PO QHS tablet 08/13/16 Epoetin Ernesto [Procrit Inj 20,000 Unit/1 ml Vial (Renal)] 20,000 unit SUBCUT Q7D ml 08/13/16 Insulin Lispro [Humalog Insulin (Lispro) 100 unit/mL] 0 - 12 unit SUBCUT ACHSP PRN unit 08/13/16 Metoprolol Succinate [Toprol Xl 50 mg Tab.sr] 50 mg PO QHS tab.sr.24h 08/13/16 Linezolid [Zyvox RTU 600 mg/300 ml Premixed] 600 mg IV Q12 #60 rtupb 09/17/16 Prednisone [Deltasone 20 mg Tablet] 40 mg PO DAILY #30 tablet 09/17/16 Acetaminophen [Tylenol 325 mg Tablet] 650 mg PO Q4HP PRN 10/03/16 Imipenem/Cilastatin Sodium [Imipenem-Cilastatin 500 mg Vl] 500 mg IV Q6 Insulin Glargine,Hum.rec.anlog [Lantus Insulin 100 Unit/mL] 35 unit SUBCUT QHS 10/03/16 Ipratropium/Albuterol Sulfate [Duoneb 3 ml Ampul] 1 vial NEB Q6 10/03/16 Levalbuterol HCl [Xopenex Neb 1.25 mg/3 ml Ampul] 1.25 mg NEB RTQ4HP PRN Omeprazole 20 mg PO QAM 10/03/16 Allergies/Adverse Reactions: PPD black rubber mix Allergy (Verified 08/05/16 00:06) Review of Systems Constitutional: ABSENT: fever(s), night sweats Eyes: ABSENT: visual disturbances Ears: ABSENT: hearing changes Nose, Mouth, and Throat: ABSENT: mouth pain Respiratory: PRESENT: dyspnea. ABSENT: hemoptysis Gastrointestinal: PRESENT: melena. ABSENT: diarrhea, dysphagia, hematochezia Genitourinary: ABSENT: hematuria Integumentary: ABSENT: lesions, pruritus Neurological: ABSENT: syncope Endocrine: ABSENT: polydipsia, polyphagia, polyuria Hematologic/Lymphatic: ABSENT: easy bruising Physical Exam Vital Signs: Temp Pulse Resp BP Pulse Ox 98.2 F 88 18 152/78 H 96 10/03/16 16:00 10/03/16 16:00 10/03/16 17:00 10/03/16 16:56 10/03/16 17:00 Intake & Output 10/02/16 10/03/16 10/04/16 06:59 06:59 06:59 Intake Total 650 Output Total 270 Balance 380 Weight 130.6 kg General appearance: PRESENT: well-developed Head exam: PRESENT: atraumatic, normocephalic Eye exam: PRESENT: EOMI, PERRLA. ABSENT: nystagmus, periorbital swelling, scleral icterus Mouth exam: PRESENT: neck supple Throat exam: ABSENT: tonsillar exudate, tonsillogmegaly Neck exam: ABSENT: meningismus, tenderness, thyromegaly Respiratory exam: PRESENT: decreased breath sounds, symmetrical Cardiovascular exam: PRESENT: RRR, +S1, +S2 Vascular exam: ABSENT: pallor GI/Abdominal exam: PRESENT: normal bowel sounds, soft. ABSENT: Keenan's sign, rebound, rigid, tenderness Extremities exam: ABSENT: joint swelling Neurological exam: PRESENT: CN II-XII grossly intact Skin exam: PRESENT: normal color. ABSENT: mottled, pallor, urticaria, vesicles Results Laboratory Results: 10/03/16 15:40 10/03/16 15:40 WBC 7.7 RBC 3.23 L Hgb 8.5 L Hct 25.7 L MCV 80 MCH 26.3 L MCHC 33.1 RDW 20.1 H Plt Count 88 L Assessment & Plan - Diagnosis (1) Thrombocytopenia Is this a current diagnosis for this admission?: YesPlan: would need to make diligent search for cause since patient requires anticoagulation ? due to medication vs possible heparin induced (2) Anemia due to acute blood loss Plan: could be upper GI in nature Dr Braswell seems to indicate patient had colonoscopy before I do note an EGD done in 2014 I will speak with Dr Miller to see if we would need to proceed with EGD she may cancel the consult however further recommendations to follow - Time Time Spent: 50 to 70 Minutes
[2016-10-03] MEDS ORDERED: FUROSEMIDE INJ/PF 20 MG/2 ML SDV IV ONE (18:56)
[2016-10-03] MEDS ORDERED: CILASTATIN SODIUM IV ONE (19:00)
[2016-10-03] MEDS ORDERED: NORMAL SALINE IV ONE (19:00)
[2016-10-03] MEDS ORDERED: IMIPENEM IV ONE (19:00)
[2016-10-03] MEDS: VANCOMYCIN HCL 750 MG in DEXTROSE 5%-WATER 250 ML IV SCH (22:18)
[2016-10-03 23:37] LABS: HEMATOCRIT 24.5 % (37.9-51.0); HEMOGLOBIN 8.2 g/dL (13.5-17.0); HGB HCT DIFFERENCE 0.1; MEAN CORPUSCULAR HEMOGLOBIN 26.8 pg (27.0-33.4); MEAN CORPUSCULAR HGB CONC 33.5 g/dL (32.0-36.0); MEAN CORPUSCULAR VOLUME 80 fl (80-97); RED BLOOD COUNT 3.06 10^6/uL (4.35-5.55); RED CELL DISTRIBUTION WIDTH 19.3 % (11.5-14.0); WHITE BLOOD COUNT 9.7 10^3/uL (4.0-10.5)
[2016-10-04] MEDS ORDERED: CILASTATIN SODIUM IV SCH ×2
[2016-10-04] MEDS ORDERED: NORMAL SALINE IV SCH ×2
[2016-10-04] MEDS ORDERED: IMIPENEM IV SCH ×2
[2016-10-04] MEDS: NORMAL SALINE IV SCH ×5 (01:11→23:00)
[2016-10-04] MEDS: IMIPENEM IV SCH ×5 (01:11→23:00)
[2016-10-04] MEDS: CILASTATIN SODIUM IV SCH ×5 (01:11→23:00)
[2016-10-04] MEDS: IPRATROPIUM/ALBUTEROL 0.5-2.5 MG/3 ML AMPUL NEB PRN (02:00)
[2016-10-04] MEDS: HYDRALAZINE HCL INJ/PF 20 MG/1 ML SDV IV PRN (02:08)
[2016-10-04] MEDS: NORMAL SALINE 100 ML with PANTOPRAZOLE SODIUM 80 MG IV PRN ×4 (04:11→14:42)
[2016-10-04 06:09] LABS: ABSOLUTE LYMPHOCYTES (AUTO) 0.6 10^3/uL (0.5-4.7); ABSOLUTE MONOCYTES (AUTO) 0.5 10^3/uL (0.1-1.4); ABSOLUTE NEUT (AUTO) 8.2 10^3/uL (1.7-8.2); BASOPHILS % (AUTO) 0.4 % (0-2); EOSINOPHILS % (AUTO) 0.1 % (0-6); MEAN CORPUSCULAR HEMOGLOBIN 26.4 pg (27.0-33.4); MEAN CORPUSCULAR HGB CONC 33.2 g/dL (32.0-36.0); MEAN CORPUSCULAR VOLUME 80 fl (80-97); MONOCYTES % (AUTO) 5.6 % (3-13); RED BLOOD COUNT 3.01 10^6/uL (4.35-5.55); RED CELL DISTRIBUTION WIDTH 19.5 % (11.5-14.0); SEGMENTED NEUTROPHILS % (AUTO) 87.9 % (42-78); WHITE BLOOD COUNT 9.4 10^3/uL (4.0-10.5)
[2016-10-04 06:12] LABS: ANION GAP 9 (5-19); BLOOD UREA NITROGEN 23 mg/dL (7-20); CALCIUM 8.3 mg/dL (8.4-10.2); CARBON DIOXIDE 30 mmol/L (22-30); CHLORIDE 100 mmol/L (98-107); CREATININE RESULT 1.54 mg/dL (0.52-1.25); GLUCOSE 118 mg/dL (75-110); POTASSIUM 4.4 mmol/L (3.6-5.0); SODIUM 139.1 mmol/L (137-145)
[2016-10-04 06:58] LABS: CREATINE KINASE MB 2.68 ng/mL (<4.55); TROPONIN I 0.069 ng/mL
--- NOTE | 2016-10-04 07:39 | EKG REPORT ---
SEVERITY:- ABNORMAL ECG - ATRIAL FLUTTER, A-RATE 254 MULTIFORM VENTRICULAR PREMATURE COMPLEXES BORDERLINE T ABNORMALITIES, INFERIOR LEADS : Confirmed by: Suhail Kaufman MD 04-Oct-2016 07:38:15
[2016-10-04] MEDS: DOCUSATE SODIUM 100 MG CAPSULE PO SCH ×2 (09:12→17:46)
[2016-10-04] MEDS: DEXTROSE 10%-WATER 1,000 ML IV PRN (09:12)
[2016-10-04] MEDS: VANCOMYCIN HCL 750 MG in DEXTROSE 5%-WATER 250 ML IV SCH ×2 (09:13→22:58)
[2016-10-04] MEDS ORDERED: ACETAMINOPHEN 325 MG TABLET PO PRN (09:58)
[2016-10-04] MEDS ORDERED: LEVALBUTEROL HCL NEB 1.25 MG/3 ML AMPUL NEB PRN (09:58)
[2016-10-04] MEDS ORDERED: DOCUSATE SODIUM 100 MG CAPSULE PO SCH (10:00)
[2016-10-04] MEDS ORDERED: EPOETIN ALFA INJ 20000 UNIT/1 ML VIAL (RENAL) SUBCUT SCH (10:00)
[2016-10-04] MEDS ORDERED: METOPROLOL TARTRATE PF/INJ 5 MG/5 ML SDV IV ONE ×2 (10:15→10:45)
--- NOTE | 2016-10-04 10:16 | PDOC PROGRESS REPORT ---
Subjective Progress Note for:: 10/04/16 Subjective:: patient appears quite comfortable laying flat he states he has no chest no chest pain no shortness of breath No abdominal pain nausea vomiting; tarry stools are persistent Patient is scheduled for endoscopy this morning Physical Exam Vital Signs: Temp Pulse Resp BP Pulse Ox 97.6 F 109 H 24 H 192/56 H 95 10/04/16 07:35 10/04/16 07:35 10/04/16 07:35 10/04/16 07:35 10/04/16 07:35 Intake & Output 10/03/16 10/04/16 10/05/16 00:59 00:59 00:59 Intake Total 1515 613 Output Total 780 Balance 735 613 Weight 130.6 kg 135.5 kg General appearance: PRESENT: no acute distress, morbidly obese Head exam: PRESENT: atraumatic Eye exam: PRESENT: conjunctiva pale Neck exam: ABSENT: carotid bruit, JVD, lymphadenopathy, thyromegaly Respiratory exam: PRESENT: decreased breath sounds, rales - Is. ABSENT: rhonchi , wheezes Cardiovascular exam: PRESENT: irregular rhythm Pulses: PRESENT: normal dorsalis pedis pul GI/Abdominal exam: PRESENT: normal bowel sounds, soft. ABSENT: distended, guarding, mass, organolmegaly, rebound, tenderness Neurological exam: PRESENT: alert, awake, oriented to person, oriented to place , oriented to time, oriented to situation, CN II-XII grossly intact. ABSENT: motor sensory deficit Results Laboratory Results: 10/04/16 04:30 10/04/16 04:30 10/03/16 10/03/16 10/04/16 15:40 23:30 04:30 WBC 7.7 9.7 RBC 3.23 L 3.06 L Hgb 8.5 L 8.2 L Hct 25.7 L 24.5 L MCV 80 80 MCH 26.3 L 26.8 L MCHC 33.1 33.5 RDW 20.1 H 19.3 H Plt Count 88 L 81 L Seg Neutrophils % Lymphocytes % Monocytes % Eosinophils % Basophils % Absolute Neutrophils Absolute Lymphocytes Absolute Monocytes Absolute Eosinophils Absolute Basophils Sodium 139.1 Potassium 4.4 Chloride 100 Carbon Dioxide 30 Anion Gap 9 BUN 23 H Creatinine 1.54 H Est GFR ( Amer) 53 L Est GFR (Non-Af Amer) 44 L Glucose 118 H Calcium 8.3 L 10/04/16 04:30 WBC 9.4 RBC 3.01 L Hgb 8.0 L Hct 24.0 L MCV 80 MCH 26.4 L MCHC 33.2 RDW 19.5 H Plt Count 85 L Seg Neutrophils % 87.9 H Lymphocytes % 6.0 L Monocytes % 5.6 Eosinophils % 0.1 Basophils % 0.4 Absolute Neutrophils 8.2 Absolute Lymphocytes 0.6 Absolute Monocytes 0.5 Absolute Eosinophils 0.0 Absolute Basophils 0.0 Sodium Potassium Chloride Carbon Dioxide Anion Gap BUN Creatinine Est GFR ( Amer) Est GFR (Non-Af Amer) Glucose Calcium 10/04/16 10/04/16 04:30 06:25 Creatine Kinase 43 L CK-MB (CK-2) 2.68 Troponin I 0.069 Assessment & Plan - Diagnosis (1) Anemia requiring transfusions Is this a current diagnosis for this admission?: YesPlan: We will transfuse 2 more units of packed red cells Hematocrit is 24 after 2 units yesterday (2) Diastolic CHF Qualifiers: Congestive heart failure chronicity: chronic Qualified Code(s): I50.32 - Chronic diastolic (congestive) heart failure Is this a current diagnosis for this admission?: YesPlan: Acute on chronic diastolic CHF We will give 20 mg of Lasix between transfusions (3) Fluid overload Qualifiers: Hypervolemia type: unspecified Qualified Code(s): E87.70 - Fluid overload, unspecified Is this a current diagnosis for this admission?: YesPlan: Monitor fluid balance Lasix as needed (4) GI bleed Qualifiers: GI bleed type/associated pathology: melena Qualified Code(s): K92.1 - Melena Is this a current diagnosis for this admission?: YesPlan: Patient is chronically anticoagulated We have discontinued Eliquis Endoscopy this morning Continue Protonix (6) Thrombocytopenia Is this a current diagnosis for this admission?: YesPlan: likely to be secondary to the Zyvox Zyvox was discontinued Continue vancomycin (7) Atrial flutter Is this a current diagnosis for this admission?: YesPlan: With rapid ventricular rate Metoprolol 5 mg IV push was given we will reevaluate patient's medications and discontinue Norvasc replace replace with cardizem CD - Time Time Spent with patient: 35 or more minutes
[2016-10-04] MEDS ORDERED: DIPHENHYDRAMINE HCL 50 MG/ML VIAL ONE (11:17)
[2016-10-04] MEDS ORDERED: ONDANSETRON HCL INJ/PF 4 MG/2 ML SDV ONE (11:17)
[2016-10-04] MEDS ORDERED: NALOXONE HCL INJ/PF 0.4 MG/1 ML SDV ONE (11:17)
[2016-10-04] MEDS ORDERED: FLUMAZENIL INJ 0.5 MG/5 ML VIAL IV ONE (11:18)
[2016-10-04] MEDS ORDERED: GLUCAGON,HUMAN RECOMB 1 MG INJ ONE (11:18)
[2016-10-04] MEDS ORDERED: FENTANYL CITRATE INJ/PF 100 MCG/2 ML AMPUL ONE (11:18)
[2016-10-04] MEDS ORDERED: MIDAZOLAM 2 MG/2 ML INJ ONE (11:18)
[2016-10-04] MEDS ORDERED: EPINEPHRINE INJ 1 MG/10 ML DISP.SYRIN ONE (11:18)
--- NOTE | 2016-10-04 12:11 | Operative Report ---
Operative Report DATE OF SURGERY: 10/04/16 Operative Report: The risks benefits and alternatives of the procedure explained to the patient in detail and informed consent is obtained that GIF Olympus video scope was inserted into the patient's mouth and hypopharynx the esophagus is identified intubated and insufflated the scope was then advanced through the esophagus stomach and duodenum retroflexion maneuver is done the esophagus stomach and first and second portions of the duodenum examined PREOPERATIVE DIAGNOSIS: Possible upper GI bleeding POSTOPERATIVE DIAGNOSIS: Esophagitis, gastritis, evidence of melena and in the distal portion of the stomach and the small intestine. Duodenitis. No active bleeding noted OPERATION: EGD with biopsy SURGEON: SHADI SHRESTHA ANESTHESIA: Moderate Sedation - 1 mg Versed. Conscious sedation monitoring time 30 minutes TISSUE REMOVED OR ALTERED: Gastric mucosal specimen obtained rule out Helicobacter pylori COMPLICATIONS: None. ESTIMATED BLOOD LOSS: none. INTRAOPERATIVE FINDINGS: As described above. PROCEDURE: Patient tolerated the procedure well. No immediate postprocedure complications are noted. Patient is discharged to his room in good condition. Await on biopsies. Resume diet. Resume previous activity level. Continue to monitor her respiratory status. Appears to have some shortness of breath may need to be admitted back to the ICU if worsens.
[2016-10-04 12:16] LABS: CREATINE KINASE MB 2.53 ng/mL (<4.55); TROPONIN I 0.065 ng/mL
[2016-10-04] MEDS: FOLIC ACID/VITAMIN B COMP W-C CAPSULE PO SCH (13:20)
[2016-10-04] MEDS: ISOSORBIDE MONONITRATE 30 MG TAB.ER.24H PO SCH (13:21)
[2016-10-04] MEDS: FERROUS SULFATE 325 MG TABLET PO SCH ×2 (13:21→17:46)
[2016-10-04] MEDS: FUROSEMIDE 40 MG TABLET PO SCH (13:21)
[2016-10-04] MEDS: HYDRALAZINE HCL 50 MG TABLET PO SCH ×2 (13:22→23:00)
[2016-10-04] MEDS ORDERED: FUROSEMIDE INJ/PF 20 MG/2 ML SDV IV PRN (17:31)
[2016-10-04] MEDS ORDERED: NORMAL SALINE 250 ML IV PRN ×2 (17:31)
[2016-10-04] MEDS ORDERED: FUROSEMIDE INJ/PF 100 MG/10 ML SDV IV ONE (18:15)
[2016-10-04] MEDS ORDERED: NITROGLYCERIN 2% OINTMENT 1 GM PACKET TP ONE (18:15)
[2016-10-04 19:20] LABS: CREATINE KINASE MB 3.51 ng/mL (<4.55); TROPONIN I 0.067 ng/mL
[2016-10-04] MEDS: PANTOPRAZOLE SODIUM 40 MG VIAL IV SCH (22:58)
[2016-10-04] MEDS: DOXAZOSIN MESYLATE 4 MG TABLET PO SCH (22:59)
[2016-10-04] MEDS: DILTIAZEM HCL 120 MG CAP.SR.24H PO SCH (22:59)
[2016-10-04] MEDS: METOPROLOL SUCCINATE 50 MG TAB.SR.24H PO SCH (22:59)
[2016-10-05] MEDS: CILASTATIN SODIUM IV SCH ×3 (06:22→17:14)
[2016-10-05] MEDS: NORMAL SALINE IV SCH ×3 (06:22→17:14)
[2016-10-05] MEDS: IMIPENEM IV SCH ×3 (06:22→17:14)
[2016-10-05] MEDS: HYDRALAZINE HCL 50 MG TABLET PO SCH ×3 (06:23→22:29)
[2016-10-05 06:43] LABS: ABSOLUTE LYMPHOCYTES (AUTO) 0.3 10^3/uL (0.5-4.7); ABSOLUTE MONOCYTES (AUTO) 0.4 10^3/uL (0.1-1.4); BASOPHILS % (AUTO) 0.4 % (0-2); HEMATOCRIT 19.8 % (37.9-51.0); HGB HCT DIFFERENCE -0.3; LYMPHOCYTES % (AUTO) 5.1 % (13-45); MEAN CORPUSCULAR HEMOGLOBIN 26.4 pg (27.0-33.4); MEAN CORPUSCULAR VOLUME 80 fl (80-97); RED BLOOD COUNT 2.47 10^6/uL (4.35-5.55); RED CELL DISTRIBUTION WIDTH 19.6 % (11.5-14.0); SEGMENTED NEUTROPHILS % (AUTO) 88.5 % (42-78); WHITE BLOOD COUNT 6.8 10^3/uL (4.0-10.5)
[2016-10-05 06:53] LABS: ANION GAP 9 (5-19); BLOOD UREA NITROGEN 23 mg/dL (7-20); CALCIUM 7.1 mg/dL (8.4-10.2); CARBON DIOXIDE 28 mmol/L (22-30); CHLORIDE 105 mmol/L (98-107); CREATININE RESULT 1.36 mg/dL (0.52-1.25); GLUCOSE 151 mg/dL (75-110); POTASSIUM 4.3 mmol/L (3.6-5.0); SODIUM 141.5 mmol/L (137-145)
[2016-10-05 07:05] LABS: HEMOGLOBIN 6.5 g/dL (13.5-17.0)
[2016-10-05] MEDS ORDERED: NORMAL SALINE 250 ML IV PRN ×2 (07:59)
[2016-10-05 09:17] LABS: PROTHROMBIN TIME 16.4 SEC (11.4-15.4)
[2016-10-05 09:18] LABS: FIBRINOGEN 384 mg/dL (209-497); PARTIAL THROMBOPLASTIN TIME 44.7 SEC (23.5-35.8)
[2016-10-05 09:20] LABS: D-DIMER 0.49 ug/mL (0.00-0.50)
[2016-10-05 09:26] LABS: ANION GAP 10 (5-19); BLOOD UREA NITROGEN 26 mg/dL (7-20); CALCIUM 8.5 mg/dL (8.4-10.2); CARBON DIOXIDE 32 mmol/L (22-30); CHLORIDE 98 mmol/L (98-107); CREATININE RESULT 1.57 mg/dL (0.52-1.25); GLUCOSE 167 mg/dL (75-110); POTASSIUM 4.9 mmol/L (3.6-5.0)
[2016-10-05] MEDS: ALBUMIN HUMAN 50 ML IV SCH ×2 (09:48→22:29)
[2016-10-05] MEDS: PANTOPRAZOLE SODIUM 40 MG VIAL IV SCH ×2 (09:57→22:30)
[2016-10-05] MEDS: FERROUS SULFATE 325 MG TABLET PO SCH ×2 (09:57→17:14)
[2016-10-05] MEDS: FOLIC ACID/VITAMIN B COMP W-C CAPSULE PO SCH (09:57)
[2016-10-05] MEDS: DILTIAZEM HCL 120 MG CAP.SR.24H PO SCH ×2 (09:57→22:28)
[2016-10-05] MEDS: TIOTROPIUM BROMIDE DPI 5 CAP/KIT (18 MCG/CAP) IH SCH (09:58)
[2016-10-05] MEDS: ISOSORBIDE MONONITRATE 30 MG TAB.ER.24H PO SCH (09:58)
[2016-10-05] MEDS: FUROSEMIDE 40 MG TABLET PO SCH (09:58)
[2016-10-05] MEDS ORDERED: INSULIN GLARGINE,HUM.REC.ANLOG 300 UNIT/3 ML INSULN.PEN SUBCUT ONE (10:00)
[2016-10-05] MEDS: DOCUSATE SODIUM 100 MG CAPSULE PO SCH ×2 (10:04→17:15)
[2016-10-05] MEDS: VANCOMYCIN HCL 750 MG in DEXTROSE 5%-WATER 250 ML IV SCH (10:05)
[2016-10-05 10:34] LABS: FOLATE > 20.00 ng/mL (>2.76)
[2016-10-05] MEDS: NORMAL SALINE 250 ML with FUROSEMIDE 250 MG IV PRN ×2 (11:26)
[2016-10-05] MEDS: INSULIN LISPRO 100 UNIT/ML 3 ML VIAL SUBCUT PRN (11:28)
[2016-10-05] MEDS ORDERED: DAPTOMYCIN 500 MG in NORMAL SALINE 50 ML IV SCH (12:00)
--- NOTE | 2016-10-05 12:01 | PDOC CONSULTATION ---
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 It was only sensitive to either linezolid or daptomycin. He presented with GI bleed, bright red blood per rectum, hemoglobin was down to the 6 range, he received transfusion of 2 units of packed red blood cell. He had upper endoscopy by gastroenterology but thereafter was unstable because of CHF exacerbation and overload. So now he is being diuresed gently and being prepared for colonoscopy. After he received 2 units of packed red blood cell his hemoglobin is again come down to 6.5, so does appear he still bleeding. Of note upon admission, his platelet count was 88, on discharge a few weeks prior his platelet count was normal greater than 150. In review of coagulation studies his INR is 1.4, PTT is elevated, fibrinogen however is normal. Past Medical History Cardiac Medical History: Reports: Atrial Fibrillation, Congestive Heart Failure - Diastolic, Hyperlipidema, Hypertension Denies: DVT, Myocardial Infarction, Pulmonary Embolism Pulmonary Medical History: Reports: Chronic Obstructive Pulmonary Disease (COPD) , Sleep Apnea Neurological Medical History: Denies: Seizures Endocrine Medical History: Reports: Diabetes Mellitus Type 1, Diabetes Mellitus Type 2 Denies: Hyperthyroidism, Hypothyroidism GI Medical History: Denies: Cirrhosis, Gastroesophageal Reflux Disease, Hepatitis Musculoskeltal Medical History: Denies: Arthritis Psychiatric Medical History: Reports: Depression Hematology: Reports: Anemia Infectious Medical History: Reports: Methicillin-Resistant Staph Aureus Past Surgical History Past Surgical History: Reports: Orthopedic Surgery - Right fifth metatarsal amputation, Other - Nasal surgery many years ago while in the [facility]. Social History Lives with: Retirement Smoking Status: Former Smoker Frequency of Alcohol Use: None Hx Recreational Drug Use: No Drugs: None Hx Prescription Drug Abuse: No - Advance Directive Resuscitation Status: Full Code Family History Family History: CAD, CVA, DM Parental Family History Reviewed: Yes Children Family History Reviewed: Yes Sibling(s) Family History Reviewed.: Yes Medication/Allergy Home Medications: Apixaban [Eliquis 5 mg Tablet] 5 mg PO Q12 07/03/16 B Complex & C No.20/Folic Acid [Renal Caps Softgel] 1 cap PO DAILY 07/03/16 Ergocalciferol (Vitamin D2) [Vitamin D2] 50,000 units PO ABDALLA 07/03/16 Ferrous Sulfate [Feosol 325 mg Tablet] 325 mg PO BID 07/03/16 Isosorbide Mononitrate [Imdur 30 mg Tablet.er] 30 mg PO DAILY 07/03/16 Tiotropium [place] [Spiriva Handihaler 18 mcg/dose (30 Dose)] 1 cap IH DAILY 05/09 Furosemide [Lasix 40 mg Tablet] 40 mg PO DAILY #0 tablet 07/24/16 Hydralazine HCl [Apresoline 50 mg Tablet] 100 mg PO Q8 #0 tablet 07/24/16 Polyethylene Glycol 3350 [Miralax Powder 17 gm/Packet] 17 gm PO DAILY #0 powd.pack 07/24/16 Amlodipine Besylate [Norvasc 10 mg Tablet] 10 mg PO DAILY tablet 08/13/16 Aspirin [Adult Low Dose Aspirin EC] 81 mg PO DAILY #30 tablet. 08/13/16 Docusate Sodium [Colace 100 mg Capsule] 100 mg PO BID capsule 08/13/16 Doxazosin Mesylate [Cardura 4 mg Tablet] 4 mg PO QHS tablet 08/13/16 Epoetin Ernesto [Procrit Inj 20,000 Unit/1 ml Vial (Renal)] 20,000 unit SUBCUT Q7D ml 08/13/16 Insulin Lispro [Humalog Insulin (Lispro) 100 unit/mL] 0 - 12 unit SUBCUT ACHSP PRN unit 08/13/16 Metoprolol Succinate [Toprol Xl 50 mg Tab.sr] 50 mg PO QHS tab.sr.24h 08/13/16 Linezolid [Zyvox RTU 600 mg/300 ml Premixed] 600 mg IV Q12 #60 rtupb 09/17/16 Prednisone [Deltasone 20 mg Tablet] 40 mg PO DAILY #30 tablet 09/17/16 Acetaminophen [Tylenol 325 mg Tablet] 650 mg PO Q4HP PRN 10/03/16 Imipenem/Cilastatin Sodium [Imipenem-Cilastatin 500 mg Vl] 500 mg IV Q6 Insulin Glargine,Hum.rec.anlog [Lantus Insulin 100 Unit/mL] 35 unit SUBCUT QHS 10/03/16 Ipratropium/Albuterol Sulfate [Duoneb 3 ml Ampul] 1 vial NEB Q6 10/03/16 Levalbuterol HCl [Xopenex Neb 1.25 mg/3 ml Ampul] 1.25 mg NEB RTQ4HP PRN Omeprazole 20 mg PO QAM 10/03/16 Allergies/Adverse Reactions: PPD black rubber mix Allergy (Verified 08/05/16 00:06) Review of Systems Constitutional: ABSENT: chills, fever(s), headache(s), weight gain, weight loss Eyes: ABSENT: visual disturbances Ears: ABSENT: hearing changes Cardiovascular: ABSENT: chest pain, dyspnea on exertion, edema, orthropnea, palpitations Respiratory: ABSENT: cough, hemoptysis Gastrointestinal: ABSENT: abdominal pain, constipation, diarrhea, hematemesis, hematochezia, nausea, vomiting Genitourinary: ABSENT: dysuria, hematuria Musculoskeletal: ABSENT: joint swelling Integumentary: ABSENT: rash, wounds Neurological: ABSENT: abnormal gait, abnormal speech, confusion, dizziness, focal weakness, syncope Psychiatric: ABSENT: anxiety, depression, homidical ideation, suicidal ideation Endocrine: ABSENT: cold intolerance, heat intolerance, polydipsia, polyuria Hematologic/Lymphatic: ABSENT: easy bleeding, easy bruising Physical Exam Vital Signs: Temp Pulse Resp BP Pulse Ox 97.1 F 57 L 26 H 150/65 H 97 10/05/16 11:06 10/05/16 11:06 10/05/16 11:06 10/05/16 11:06 10/05/16 11:06 Intake & Output 10/04/16 10/05/16 10/06/16 06:59 06:59 06:59 Intake Total 2128 1750 0 Output Total 780 475 Balance 1348 1275 0 Weight 135.5 kg 135.5 kg General appearance: PRESENT: no acute distress, well-developed, well-nourished Head exam: PRESENT: atraumatic, normocephalic Eye exam: PRESENT: conjunctiva pink, EOMI, PERRLA. ABSENT: scleral icterus Ear exam: PRESENT: normal external ear exam Mouth exam: PRESENT: moist, tongue midline Neck exam: ABSENT: carotid bruit, JVD, lymphadenopathy, thyromegaly Respiratory exam: PRESENT: clear to auscultation [place]. ABSENT: rales, rhonchi, wheezes Cardiovascular exam: PRESENT: RRR. ABSENT: diastolic murmur, rubs, systolic murmur Pulses: PRESENT: normal dorsalis pedis pul Vascular exam: PRESENT: normal capillary refill GI/Abdominal exam: PRESENT: normal bowel sounds, soft. ABSENT: distended, guarding, mass, organolmegaly, rebound, tenderness Rectal exam: PRESENT: deferred Extremities exam: PRESENT: full ROM. ABSENT: calf tenderness, clubbing, pedal edema Neurological exam: PRESENT: alert, awake, oriented to person, oriented to place , oriented to time, oriented to situation, CN II-XII grossly intact. ABSENT: motor sensory deficit Psychiatric exam: PRESENT: appropriate affect, normal mood. ABSENT: homicidal ideation, suicidal ideation Skin exam: PRESENT: dry, intact, warm. ABSENT: cyanosis, rash Results Laboratory Results: 10/05/16 06:25 10/05/16 08:42 10/05/16 10/05/16 10/05/16 06:25 06:25 08:42 WBC 6.8 RBC 2.47 L Hgb 6.5 L Hct 19.8 L MCV 80 MCH 26.4 L MCHC 33.0 RDW 19.6 H Plt Count 59 L Seg Neutrophils % 88.5 H Lymphocytes % 5.1 L Monocytes % 6.0 Eosinophils % 0.0 Basophils % 0.4 Absolute Neutrophils 6.0 Absolute Lymphocytes 0.3 L Absolute Monocytes 0.4 Absolute Eosinophils 0.0 Absolute Basophils 0.0 Sodium 141.5 140.0 Potassium 4.3 4.9 Chloride 105 98 Carbon Dioxide 28 32 H Anion Gap 9 10 BUN 23 H 26 H Creatinine 1.36 H 1.57 H Est GFR ( Amer) > 60 52 L Est GFR (Non-Af Amer) 51 L 43 L Glucose 151 H 167 H Calcium 7.1 L 8.5 Vitamin B12 969.0 H Folate > 20.00 10/04/16 10/04/16 10/04/16 04:30 06:25 11:25 Creatine Kinase 43 L 37 L CK-MB (CK-2) 2.68 Troponin I 0.069 0410/04/16 10/04/16 11:25 18:25 18:25 Creatine Kinase 47 L CK-MB (CK-2) 2.53 3.51 Troponin I 0.065 0.067 10/05/16 09:00 Creatine Kinase CK-MB (CK-2) Troponin I 0.077 Impressions: Chest X-Ray 10/04/16 10:05 IMPRESSION: NO CHANGE IN APPEARANCE OF THE CHEST. CARDIOMEGALY WITH DIFFUSE PARENCHYMAL OPACITIES THROUGHOUT BOTH LUNGS. DIFFERENTIAL INCLUDES PULMONARY EDEMA AND/OR WIDESPREAD PNEUMONIA. Assessment & Plan - Diagnosis (1) Thrombocytopenia Is this a current diagnosis for this admission?: YesPlan: Likely multifactorial, he probably does have an element of DIC even though the fibrinogen is normal, because the INR is elevated. Otherwise, he also does have Linezolid on board now for 30 days which is a major culprit of myelosuppression and specifically thrombocytopenia. Today had a long discussion with hospitalist team, this drug is been discontinued, but given the fact that he has VRE he needs to have daptomycin. So that will be started. In addition, the GI bleed is probably contributing to this as well as it is utilizing more platelets to compensate for the bleed. At this point, I would recommend that if the platelet count gets under 50 to transfuse 1 unit of platelets given the fact that he still actively bleeding. He may also benefit from 1 unit of FFP. However this effective that would be short lived. If his platelet count remains above 50 he can be monitored until the bleed hopefully will resolve in the next 24-48 hours. (2) Anemia requiring transfusions Is this a current diagnosis for this admission?: YesPlan: Secondary to GI bleed, iron deficiency, agree with transfusion he will require continued gentle diuresis with the transfusion. Would not recommend any iron studies be sent now, because of his acute infection I would not recommend IV iron. His B12 levels and folate levels were normal. - Time Time Spent: 50 to 70 Minutes Critical Time spent with patient: 15-24 minutes - Inpatient Certification Based on my medical assessment, after consideration of the patient's comorbidities, presenting symptoms, or acuity I expect that the services needed warrant INPATIENT care.: Yes I certify that my determination is in accordance with my understanding of Medicare's requirements for reasonable and necessary INPATIENT services [42 CFR 412.3e].: Yes Medical Necessity: Need For Continuous Telemetry Monitoring, Need for Nebulizer Therapy and Monitoring of Response, Need for IV Antibiotics, Risk of Complication if Not Cared For in Hospital
[2016-10-05] MEDS ORDERED: LIDOCAINE 2% URO-JET 5 ML KIT MM ONE (13:00)
--- NOTE | 2016-10-05 13:50 | PDOC PROGRESS REPORT ---
Subjective Progress Note for:: 10/05/16 Subjective:: Patient states that his shortness of breath is improved He has no fever no chills no chest pain and minimal pain in his right lower extremity H&H is low will be transfused 2 units of packed red cells Lasix drip was initiated as patient was in acute pulmonary edema yesterday Physical Exam Vital Signs: Temp Pulse Resp BP Pulse Ox 97.7 F 57 L 27 H 144/78 H 98 10/05/16 12:54 10/05/16 12:54 10/05/16 12:54 10/05/16 12:54 10/05/16 12:54 Intake & Output 10/04/16 10/05/16 10/06/16 00:59 00:59 00:59 Intake Total 1515 1883 905 Output Total 780 475 Balance 735 1408 905 Weight 130.6 kg 135.5 kg 135.5 kg General appearance: PRESENT: no acute distress, other - On BiPAP support Chronically ill Alert and awake Head exam: PRESENT: atraumatic, normocephalic Eye exam: PRESENT: conjunctiva pale, EOMI, PERRLA. ABSENT: scleral icterus Neck exam: ABSENT: carotid bruit, JVD, lymphadenopathy, thyromegaly Respiratory exam: PRESENT: clear to auscultation [place]. ABSENT: rales, rhonchi, wheezes Cardiovascular exam: PRESENT: irregular rhythm. ABSENT: diastolic murmur, rubs Pulses: PRESENT: normal dorsalis pedis pul Vascular exam: PRESENT: normal capillary refill GI/Abdominal exam: PRESENT: normal bowel sounds, soft. ABSENT: distended, guarding, mass, organolmegaly, rebound, tenderness Extremities exam: PRESENT: other - Right foot Dressing and wound VAC were removed Wound plantar aspect and lateral aspect of foot appears clean and healing well; no purulent drainage; granulation tissue Results Laboratory Results: 10/05/16 06:25 10/05/16 08:42 10/05/16 10/05/16 10/05/16 06:25 06:25 08:42 WBC 6.8 RBC 2.47 L Hgb 6.5 L Hct 19.8 L MCV 80 MCH 26.4 L MCHC 33.0 RDW 19.6 H Plt Count 59 L Seg Neutrophils % 88.5 H Lymphocytes % 5.1 L Monocytes % 6.0 Eosinophils % 0.0 Basophils % 0.4 Absolute Neutrophils 6.0 Absolute Lymphocytes 0.3 L Absolute Monocytes 0.4 Absolute Eosinophils 0.0 Absolute Basophils 0.0 Sodium 141.5 140.0 Potassium 4.3 4.9 Chloride 105 98 Carbon Dioxide 28 32 H Anion Gap 9 10 BUN 23 H 26 H Creatinine 1.36 H 1.57 H Est GFR ( Amer) > 60 52 L Est GFR (Non-Af Amer) 51 L 43 L Glucose 151 H 167 H Calcium 7.1 L 8.5 Vitamin B12 969.0 H Folate > 20.00 10/04/16 10/04/16 10/04/16 04:30 06:25 11:25 Creatine Kinase 43 L 37 L CK-MB (CK-2) 2.68 Troponin I 0.069 10/04/16 10/04/16 10/04/16 11:25 18:25 18:25 Creatine Kinase 47 L CK-MB (CK-2) 2.53 3.51 Troponin I 0.065 0.067 10/05/16 09:00 Creatine Kinase CK-MB (CK-2) Troponin I 0.077 Impressions: Chest X-Ray 10/04/16 10:05 IMPRESSION: NO CHANGE IN APPEARANCE OF THE CHEST. CARDIOMEGALY WITH DIFFUSE PARENCHYMAL OPACITIES THROUGHOUT BOTH LUNGS. DIFFERENTIAL INCLUDES PULMONARY EDEMA AND/OR WIDESPREAD PNEUMONIA. Assessment & Plan - Diagnosis (1) Anemia requiring transfusions Is this a current diagnosis for this admission?: YesPlan: 10/04/16 10/05/16 04:30 06:25 Hgb 8.0 L 6.5 L Hct 24.0 L 19.8 L We will transfuse 2 units of packed red cells today Lasix drip was initiated to prevent fluid overload (2) Diastolic CHF Qualifiers: Congestive heart failure chronicity: chronic Qualified Code(s): I50.32 - Chronic diastolic (congestive) heart failure Is this a current diagnosis for this admission?: YesPlan: Patient had acute pulmonary edema yesterday likely secondary to acute fluid overload Responded to Lasix IV (3) Fluid overload Qualifiers: Hypervolemia type: unspecified Qualified Code(s): E87.70 - Fluid overload, unspecified Is this a current diagnosis for this admission?: Yes (4) GI bleed Qualifiers: GI bleed type/associated pathology: melena Qualified Code(s): K92.1 - Melena Is this a current diagnosis for this admission?: YesPlan: Patient underwent endoscopy yesterday by Dr. Shrestha See attached note "Operative Report DATE OF SURGERY: 10/04/16 Operative Report: The risks benefits and alternatives of the procedure explained to the patient in detail and informed consent is obtained that GIF Olympus video scope was inserted into the patient's mouth and hypopharynx the esophagus is identified intubated and insufflated the scope was then advanced through the esophagus stomach and duodenum retroflexion maneuver is done the esophagus stomach and first and second portions of the duodenum examined PREOPERATIVE DIAGNOSIS: Possible upper GI bleeding POSTOPERATIVE DIAGNOSIS: Esophagitis, gastritis, evidence of melena and in the distal portion of the stomach and the small intestine. Duodenitis. No active bleeding noted OPERATION: EGD with biopsy SURGEON: SHADI SHERSTHA ANESTHESIA: Moderate Sedation - 1 mg Versed. Conscious sedation monitoring time 30 minutes TISSUE REMOVED OR ALTERED: Gastric mucosal specimen obtained rule out Helicobacter pylori COMPLICATIONS: None. ESTIMATED BLOOD LOSS: none. INTRAOPERATIVE FINDINGS: As described above. PROCEDURE: Patient tolerated the procedure well. No immediate postprocedure complications are noted. Patient is discharged to his room in good condition. Await on biopsies. Resume diet. Resume previous activity level. Continue to monitor her respiratory status. Appears to have some shortness of breath may need to be admitted back to the ICU if worsens." Patient was continued on Protonix 40 mg IV every 12 Reevaluate patient's needs Needed and if patient is stable enough a colonoscopy may be warranted (5) Hypoglycemia Is this a current diagnosis for this admission?: YesPlan: Has resolved (6) Thrombocytopenia Is this a current diagnosis for this admission?: YesPlan: We appreciate hematology note thrombocytopenia likely secondary to low-grade DIC and the Linezolid Linezolid was discontinued We will follow-up platelet count FFP and platelets to be given if platelet counts drop lower than 50,000 (7) Atrial flutter Is this a current diagnosis for this admission?: YesPlan: Controlled ventricular rate Continue the present management (8) Osteomyelitis Is this a current diagnosis for this admission?: YesPlan: Changed antibiotics to imipenem and daptomycin - Time Time Spent with patient: 35 or more minutes
[2016-10-05 18:17] LABS: HGB HCT DIFFERENCE -0.2; MEAN CORPUSCULAR HGB CONC 33.2 g/dL (32.0-36.0); MEAN CORPUSCULAR VOLUME 81 fl (80-97); RED CELL DISTRIBUTION WIDTH 18.8 % (11.5-14.0)
[2016-10-05 18:30] LABS: HEMOGLOBIN 8.6 g/dL (13.5-17.0)
[2016-10-05] MEDS: DOXAZOSIN MESYLATE 4 MG TABLET PO SCH (22:29)
[2016-10-05] MEDS: METOPROLOL SUCCINATE 50 MG TAB.SR.24H PO SCH (22:29)
[2016-10-05] MEDS: INSULIN GLARGINE,HUM.REC.ANLOG 300 UNIT/3 ML INSULN.PEN SUBCUT SCH (22:29)
[2016-10-06] MEDS: NORMAL SALINE IV SCH ×4 (00:13→17:33)
[2016-10-06] MEDS: IMIPENEM IV SCH ×4 (00:13→17:33)
[2016-10-06] MEDS: CILASTATIN SODIUM IV SCH ×4 (00:13→17:33)
[2016-10-06] MEDS: HYDRALAZINE HCL 50 MG TABLET PO SCH ×3 (05:42→22:28)
[2016-10-06] MEDS: DEXTROSE 50%-WATER 25 GM/50 ML DISP.SYRIN IV PRN (06:17)
[2016-10-06 06:55] LABS: ABSOLUTE LYMPHOCYTES (AUTO) 0.5 10^3/uL (0.5-4.7); ABSOLUTE MONOCYTES (AUTO) 0.5 10^3/uL (0.1-1.4); ABSOLUTE NEUT (AUTO) 4.8 10^3/uL (1.7-8.2); BASOPHILS % (AUTO) 0.5 % (0-2); EOSINOPHILS % (AUTO) 0.3 % (0-6); HEMATOCRIT 25.4 % (37.9-51.0); HEMOGLOBIN 8.4 g/dL (13.5-17.0); HGB HCT DIFFERENCE -0.2; LYMPHOCYTES % (AUTO) 8.2 % (13-45); MEAN CORPUSCULAR HEMOGLOBIN 27.1 pg (27.0-33.4); MEAN CORPUSCULAR VOLUME 82 fl (80-97); MONOCYTES % (AUTO) 8.1 % (3-13); RED CELL DISTRIBUTION WIDTH 18.9 % (11.5-14.0); SEGMENTED NEUTROPHILS % (AUTO) 82.9 % (42-78); WHITE BLOOD COUNT 5.7 10^3/uL (4.0-10.5)
[2016-10-06 07:13] LABS: ANION GAP 11 (5-19); BLOOD UREA NITROGEN 29 mg/dL (7-20); CALCIUM 8.3 mg/dL (8.4-10.2); CARBON DIOXIDE 31 mmol/L (22-30); CHLORIDE 100 mmol/L (98-107); CREATININE RESULT 1.77 mg/dL (0.52-1.25); GLUCOSE 53 mg/dL (75-110); POTASSIUM 4.4 mmol/L (3.6-5.0); SODIUM 142.3 mmol/L (137-145)
[2016-10-06] MEDS: NORMAL SALINE 250 ML with FUROSEMIDE 250 MG IV PRN ×2 (08:42)
[2016-10-06] MEDS: INSULIN GLARGINE,HUM.REC.ANLOG 300 UNIT/3 ML INSULN.PEN SUBCUT SCH ×2 (09:25→22:41)
[2016-10-06] MEDS: PANTOPRAZOLE SODIUM 40 MG VIAL IV SCH ×2 (09:26→22:22)
[2016-10-06] MEDS: DAPTOMYCIN 500 MG in NORMAL SALINE 50 ML IV SCH (09:26)
[2016-10-06] MEDS: TIOTROPIUM BROMIDE DPI 5 CAP/KIT (18 MCG/CAP) IH SCH (09:27)
[2016-10-06] MEDS: FERROUS SULFATE 325 MG TABLET PO SCH ×2 (09:28→17:32)
[2016-10-06] MEDS: ERGOCALCIFEROL (VITAMIN D2) 50000 UNIT (1.25 MG) CAPSULE PO SCH (09:28)
[2016-10-06] MEDS: ISOSORBIDE MONONITRATE 30 MG TAB.ER.24H PO SCH (09:28)
[2016-10-06] MEDS: DILTIAZEM HCL 120 MG CAP.SR.24H PO SCH ×2 (09:29→22:28)
[2016-10-06] MEDS: FOLIC ACID/VITAMIN B COMP W-C CAPSULE PO SCH (09:29)
[2016-10-06] MEDS: ALBUMIN HUMAN 50 ML IV SCH ×2 (09:30→22:22)
[2016-10-06] MEDS: FUROSEMIDE 40 MG TABLET PO SCH (09:30)
[2016-10-06] MEDS: DOCUSATE SODIUM 100 MG CAPSULE PO SCH ×2 (09:30→17:33)
[2016-10-06] MEDS ORDERED: ERGOCALCIFEROL (VITAMIN D2) 50000 UNIT (1.25 MG) CAPSULE PO SCH (09:58)
[2016-10-06] MEDS ORDERED: NORMAL SALINE 250 ML with FUROSEMIDE 250 MG IV PRN ×2 (10:12)
[2016-10-06] MEDS ORDERED: DAPTOMYCIN 500 MG in NORMAL SALINE 50 ML IV SCH (14:00)
--- NOTE | 2016-10-06 15:37 | PDOC PROGRESS REPORT ---
Subjective Progress Note for:: 10/06/16 Subjective:: Patient is doing much better today His breathing has improved; he has been diuresing with Lasix drip He is getting the second unit of packed red cells has not chest pain no abdominal pain Bleeding seems to have subsided The platelet count is stable Physical Exam Vital Signs: Temp Pulse Resp BP Pulse Ox 97.4 F 62 26 H 146/75 H 98 10/06/16 14:48 10/06/16 14:48 10/06/16 14:48 10/06/16 14:48 10/06/16 14:48 Intake & Output 10/05/16 10/06/16 10/07/16 00:59 00:59 00:59 Intake Total 1883 2424 790 Output Total 050 650 1149 Balance 1408 1699 -610 Weight 135.5 kg 135.5 kg 135.5 kg General appearance: PRESENT: no acute distress, morbidly obese Head exam: PRESENT: atraumatic, normocephalic Eye exam: PRESENT: conjunctiva pink, EOMI, PERRLA. ABSENT: scleral icterus Respiratory exam: PRESENT: decreased breath sounds. ABSENT: rales, rhonchi, wheezes Cardiovascular exam: PRESENT: RRR. ABSENT: diastolic murmur, rubs, systolic murmur Pulses: PRESENT: normal dorsalis pedis pul GI/Abdominal exam: PRESENT: normal bowel sounds, soft. ABSENT: distended, guarding, mass, organolmegaly, rebound, tenderness Neurological exam: PRESENT: alert, awake, oriented to person, oriented to place , oriented to time, oriented to situation, CN II-XII grossly intact. ABSENT: motor sensory deficit Results Laboratory Results: 10/06/16 05:50 10/06/16 05:50 10/05/16 10/06/16 10/06/16 17:50 05:50 05:50 WBC 7.0 5.7 RBC 3.20 L 3.10 L Hgb 8.6 L D 8.4 L Hct 26.0 L 25.4 L MCV 81 82 MCH 27.0 27.1 MCHC 33.2 33.0 RDW 18.8 H 18.9 H Plt Count 57 L 63 L Seg Neutrophils % 82.9 H Lymphocytes % 8.2 L Monocytes % 8.1 Eosinophils % 0.3 Basophils % 0.5 Absolute Neutrophils 4.8 Absolute Lymphocytes 0.5 Absolute Monocytes 0.5 Absolute Eosinophils 0.0 Absolute Basophils 0.0 Sodium 142.3 Potassium 4.4 Chloride 100 Carbon Dioxide 31 H Anion Gap 11 BUN 29 H Creatinine 1.77 H Est GFR ( Amer) 45 L Est GFR (Non-Af Amer) 37 L Glucose 53 L Calcium 8.3 L Iron 10/06/16 05:50 WBC RBC Hgb Hct MCV MCH MCHC RDW Plt Count Seg Neutrophils % Lymphocytes % Monocytes % Eosinophils % Basophils % Absolute Neutrophils Absolute Lymphocytes Absolute Monocytes Absolute Eosinophils Absolute Basophils Sodium Potassium Chloride Carbon Dioxide Anion Gap BUN Creatinine Est GFR ( Amer) Est GFR (Non-Af Amer) Glucose Calcium Iron 46.7 L 10/04/16 10/04/16 10/04/16 04:30 06:25 11:25 Creatine Kinase 43 L 37 L CK-MB (CK-2) 2.68 Troponin I 0.069 10/04/16 10/04/16 10/04/16 11:25 18:25 18:25 Creatine Kinase 47 L CK-MB (CK-2) 2.53 3.51 Troponin I 0.065 0.067 10/05/16 09:00 Creatine Kinase CK-MB (CK-2) Troponin I 0.077 Impressions: Chest X-Ray 10/04/16 10:05 IMPRESSION: NO CHANGE IN APPEARANCE OF THE CHEST. CARDIOMEGALY WITH DIFFUSE PARENCHYMAL OPACITIES THROUGHOUT BOTH LUNGS. DIFFERENTIAL INCLUDES PULMONARY EDEMA AND/OR WIDESPREAD PNEUMONIA. Assessment & Plan - Diagnosis (1) Anemia requiring transfusions Is this a current diagnosis for this admission?: YesPlan: Continue to transfuse a second unit of packed red cells Follow-up H&H in a.m. (2) Diastolic CHF Qualifiers: Congestive heart failure chronicity: chronic Qualified Code(s): I50.32 - Chronic diastolic (congestive) heart failure Is this a current diagnosis for this admission?: Yes (3) Fluid overload Qualifiers: Hypervolemia type: unspecified Qualified Code(s): E87.70 - Fluid overload, unspecified Is this a current diagnosis for this admission?: Yes (4) GI bleed Qualifiers: GI bleed type/associated pathology: melena Qualified Code(s): K92.1 - Melena Is this a current diagnosis for this admission?: YesPlan: Endoscopy was essentially negative Patient will need a colonoscopy a his H&H continues to drop (5) Hypoglycemia Is this a current diagnosis for this admission?: YesPlan: Has resolved (6) Thrombocytopenia Is this a current diagnosis for this admission?: YesPlan: Likely to be secondary to linezolid and or low-grade DIC Stable Platelet count is 70 today (7) Atrial flutter Is this a current diagnosis for this admission?: YesPlan: Rate controlled (8) Osteomyelitis Is this a current diagnosis for this admission?: YesPlan: continue ertapenem and daptomycin - Time Time Spent with patient: 25-34 minutes
[2016-10-06] MEDS: METOPROLOL SUCCINATE 50 MG TAB.SR.24H PO SCH (22:26)
[2016-10-06] MEDS: DOXAZOSIN MESYLATE 4 MG TABLET PO SCH (22:28)
[2016-10-07] MEDS: NORMAL SALINE IV SCH ×5 (00:48→23:23)
[2016-10-07] MEDS: IMIPENEM IV SCH ×5 (00:48→23:23)
[2016-10-07] MEDS: CILASTATIN SODIUM IV SCH ×5 (00:48→23:23)
[2016-10-07] MEDS: HYDRALAZINE HCL 50 MG TABLET PO SCH ×3 (05:10→23:25)
[2016-10-07 06:38] LABS: ANION GAP 10 (5-19); BLOOD UREA NITROGEN 35 mg/dL (7-20); CALCIUM 8.5 mg/dL (8.4-10.2); CARBON DIOXIDE 33 mmol/L (22-30); CHLORIDE 100 mmol/L (98-107); CREATININE RESULT 1.72 mg/dL (0.52-1.25); GLUCOSE 93 mg/dL (75-110); POTASSIUM 4.4 mmol/L (3.6-5.0); SODIUM 142.9 mmol/L (137-145)
[2016-10-07 07:17] LABS: ABSOLUTE LYMPHOCYTES (AUTO) 0.6 10^3/uL (0.5-4.7); ABSOLUTE MONOCYTES (AUTO) 0.5 10^3/uL (0.1-1.4); ABSOLUTE NEUT (AUTO) 4.3 10^3/uL (1.7-8.2); BASOPHILS % (AUTO) 0.3 % (0-2); EOSINOPHILS % (AUTO) 0.7 % (0-6); HEMATOCRIT 24.8 % (37.9-51.0); HEMOGLOBIN 8.1 g/dL (13.5-17.0); HGB HCT DIFFERENCE -0.5; LYMPHOCYTES % (AUTO) 10.3 % (13-45); MEAN CORPUSCULAR HGB CONC 32.8 g/dL (32.0-36.0); MEAN CORPUSCULAR VOLUME 83 fl (80-97); MONOCYTES % (AUTO) 9.2 % (3-13); RED BLOOD COUNT 3.01 10^6/uL (4.35-5.55); RED CELL DISTRIBUTION WIDTH 19.7 % (11.5-14.0); SEGMENTED NEUTROPHILS % (AUTO) 79.5 % (42-78); WHITE BLOOD COUNT 5.4 10^3/uL (4.0-10.5)
--- NOTE | 2016-10-07 08:12 | PDOC PROGRESS REPORT ---
Subjective Progress Note for:: 10/07/16 Subjective:: Patient's on BiPAP, per nursing very anxious unable to be taken/weaned from BiPAP. Physical Exam Vital Signs: Temp Pulse Resp BP Pulse Ox 98.2 F 61 26 H 132/63 H 100 10/07/16 07:34 10/07/16 07:34 10/07/16 07:34 10/07/16 07:34 10/07/16 07:34 Intake & Output 10/06/16 10/07/16 10/08/16 06:59 06:59 06:59 Intake Total 2454 1931 Output Total 1625 3000 Balance 829 -1069 Weight 135.5 kg 137.1 kg General appearance: PRESENT: no acute distress, well-developed, well-nourished Head exam: PRESENT: atraumatic, normocephalic Eye exam: PRESENT: conjunctiva pink, EOMI, PERRLA. ABSENT: scleral icterus Ear exam: PRESENT: normal external ear exam Mouth exam: PRESENT: moist, tongue midline Neck exam: ABSENT: carotid bruit, JVD, lymphadenopathy, thyromegaly Respiratory exam: PRESENT: clear to auscultation corn[place]. ABSENT: rales, rhonchi, wheezes Cardiovascular exam: PRESENT: RRR. ABSENT: diastolic murmur, rubs, systolic murmur Pulses: PRESENT: normal dorsalis pedis pul Vascular exam: PRESENT: normal capillary refill GI/Abdominal exam: PRESENT: normal bowel sounds, soft. ABSENT: distended, guarding, mass, organolmegaly, rebound, tenderness Rectal exam: PRESENT: deferred Extremities exam: PRESENT: full ROM. ABSENT: calf tenderness, clubbing, pedal edema Neurological exam: PRESENT: alert, awake, oriented to person, oriented to place , oriented to time, oriented to situation, CN II-XII grossly intact. ABSENT: motor sensory deficit Psychiatric exam: PRESENT: appropriate affect, normal mood. ABSENT: homicidal ideation, suicidal ideation Skin exam: PRESENT: dry, intact, warm. ABSENT: cyanosis, rash Results Laboratory Results: 10/07/16 05:25 10/07/16 05:25 10/06/16 10/07/16 10/07/16 05:50 05:25 05:25 WBC 5.4 RBC 3.01 L Hgb 8.1 L Hct 24.8 L MCV 83 MCH 27.0 MCHC 32.8 RDW 19.7 H Plt Count 70 L Seg Neutrophils % 79.5 H Lymphocytes % 10.3 L Monocytes % 9.2 Eosinophils % 0.7 Basophils % 0.3 Absolute Neutrophils 4.3 Absolute Lymphocytes 0.6 Absolute Monocytes 0.5 Absolute Eosinophils 0.0 Absolute Basophils 0.0 Sodium 142.9 Potassium 4.4 Chloride 100 Carbon Dioxide 33 H Anion Gap 10 BUN 35 H Creatinine 1.72 H Est GFR ( Amer) 47 L Est GFR (Non-Af Amer) 39 L Glucose 93 Calcium 8.5 Iron 46.7 L 10/04/16 10/04/16 10/04/16 04:30 06:25 11:25 Creatine Kinase 43 L 37 L CK-MB (CK-2) 2.68 Troponin I 0.069 NT-Pro-B Natriuret Pep 10/04/16 10/04/16 10/04/16 11:25 18:25 18:25 Creatine Kinase 47 L CK-MB (CK-2) 2.53 3.51 Troponin I 0.065 0.067 NT-Pro-B Natriuret Pep 10/05/16 10/07/16 09:00 05:25 Creatine Kinase CK-MB (CK-2) Troponin I 0.077 NT-Pro-B Natriuret Pep 06978 H Impressions: Chest X-Ray 10/04/16 10:05 IMPRESSION: NO CHANGE IN APPEARANCE OF THE CHEST. CARDIOMEGALY WITH DIFFUSE PARENCHYMAL OPACITIES THROUGHOUT BOTH LUNGS. DIFFERENTIAL INCLUDES PULMONARY EDEMA AND/OR WIDESPREAD PNEUMONIA. Assessment & Plan - Diagnosis (1) Thrombocytopenia Is this a current diagnosis for this admission?: YesPlan: Platelet count improving, probably multifactorial with myelosuppression from previous antibiotic as well as bleeding. Continue to monitor. (2) Anemia requiring transfusions Is this a current diagnosis for this admission?: YesPlan: Probably secondary to GI bleed, only had 1 melanotic stool yesterday, hemoglobin seems to be stabilizing, continue to monitor. - Time Time Spent with patient: 15-24 minutes Critical Time spent with patient: 15-24 minutes - Inpatient Certification Based on my medical assessment, after consideration of the patient's comorbidities, presenting symptoms, or acuity I expect that the services needed warrant INPATIENT care.: Yes I certify that my determination is in accordance with my understanding of Medicare's requirements for reasonable and necessary INPATIENT services [42 CFR 412.3e].: Yes Medical Necessity: Need for Surgery, Risk of Complication if Not Cared For in Hospital
[2016-10-07] MEDS: PANTOPRAZOLE SODIUM 40 MG VIAL IV SCH (09:36)
[2016-10-07] MEDS: DAPTOMYCIN 500 MG in NORMAL SALINE 50 ML IV SCH (09:36)
[2016-10-07] MEDS: FERROUS SULFATE 325 MG TABLET PO SCH ×2 (09:37→17:47)
[2016-10-07] MEDS: ISOSORBIDE MONONITRATE 30 MG TAB.ER.24H PO SCH (09:37)
[2016-10-07] MEDS: FOLIC ACID/VITAMIN B COMP W-C CAPSULE PO SCH (09:37)
[2016-10-07] MEDS: DILTIAZEM HCL 120 MG CAP.SR.24H PO SCH ×2 (09:37→23:26)
[2016-10-07] MEDS: INSULIN GLARGINE,HUM.REC.ANLOG 300 UNIT/3 ML INSULN.PEN SUBCUT SCH ×2 (09:39→23:36)
[2016-10-07] MEDS: TIOTROPIUM BROMIDE DPI 5 CAP/KIT (18 MCG/CAP) IH SCH (09:40)
[2016-10-07] MEDS: ALBUMIN HUMAN 50 ML IV SCH (09:41)
[2016-10-07] MEDS: DOCUSATE SODIUM 100 MG CAPSULE PO SCH ×2 (09:41→17:48)
[2016-10-07] MEDS ORDERED: FUROSEMIDE INJ/PF 100 MG/10 ML SDV IV ONE (13:30)
--- NOTE | 2016-10-07 14:13 | PDOC PROGRESS REPORT ---
Subjective Progress Note for:: 10/07/16 Subjective:: Patient is very dyspneic today and cannot be taken off BiPAP He has no chest pain The chest x-ray suggestive of acute pulmonary edema Physical Exam Vital Signs: Temp Pulse Resp BP Pulse Ox 98.2 F 105 H 25 H 150/63 H 100 10/07/16 11:22 10/07/16 11:22 10/07/16 12:30 10/07/16 11:22 10/07/16 12:30 Intake & Output 10/06/16 10/07/16 10/08/16 00:59 00:59 00:59 Intake Total 2424 1911 530 Output Total 725 2950 950 Balance 8274 -4221 -581 Weight 135.5 kg 135.5 kg 137.1 kg General appearance: PRESENT: mild distress, morbidly obese Head exam: PRESENT: atraumatic, normocephalic Eye exam: PRESENT: conjunctiva pink, EOMI, PERRLA. ABSENT: scleral icterus Neck exam: ABSENT: carotid bruit, JVD, lymphadenopathy, thyromegaly Respiratory exam: PRESENT: accessory muscle use, decreased breath sounds, rales Cardiovascular exam: PRESENT: irregular rhythm Pulses: PRESENT: normal dorsalis pedis pul GI/Abdominal exam: PRESENT: normal bowel sounds, soft. ABSENT: distended, guarding, mass, organolmegaly, rebound, tenderness Extremities exam: PRESENT: +1 edema Neurological exam: PRESENT: alert, awake, oriented to person, oriented to place , oriented to time, oriented to situation, CN II-XII grossly intact. ABSENT: motor sensory deficit Results Laboratory Results: 10/07/16 05:25 10/07/16 05:25 10/07/16 10/07/16 05:25 05:25 WBC 5.4 RBC 3.01 L Hgb 8.1 L Hct 24.8 L MCV 83 MCH 27.0 MCHC 32.8 RDW 19.7 H Plt Count 70 L Seg Neutrophils % 79.5 H Lymphocytes % 10.3 L Monocytes % 9.2 Eosinophils % 0.7 Basophils % 0.3 Absolute Neutrophils 4.3 Absolute Lymphocytes 0.6 Absolute Monocytes 0.5 Absolute Eosinophils 0.0 Absolute Basophils 0.0 Sodium 142.9 Potassium 4.4 Chloride 100 Carbon Dioxide 33 H Anion Gap 10 BUN 35 H Creatinine 1.72 H Est GFR ( Amer) 47 L Est GFR (Non-Af Amer) 39 L Glucose 93 Calcium 8.5 10/04/16 10/04/16 10/04/16 04:30 06:25 11:25 Creatine Kinase 43 L 37 L CK-MB (CK-2) 2.68 Troponin I 0.069 NT-Pro-B Natriuret Pep 10/04/16 10/04/16 10/04/16 11:25 18:25 18:25 Creatine Kinase 47 L CK-MB (CK-2) 2.53 3.51 Troponin I 0.065 0.067 NT-Pro-B Natriuret Pep 10/05/16 10/07/16 09:00 05:25 Creatine Kinase CK-MB (CK-2) Troponin I 0.077 NT-Pro-B Natriuret Pep 10892 H Impressions: Chest X-Ray 10/07/16 08:00 IMPRESSION: Stable chest, diffuse pulmonary parenchymal opacities bilaterally. PICC line remains in place. Assessment & Plan - Diagnosis (1) Anemia requiring transfusions Is this a current diagnosis for this admission?: YesPlan: Stable at this time follow-up H&H (2) Diastolic CHF Qualifiers: Congestive heart failure chronicity: chronic Qualified Code(s): I50.32 - Chronic diastolic (congestive) heart failure Is this a current diagnosis for this admission?: YesPlan: Acute on chronic diastolic CHF ; we will give the patient IV Lasix and increase drip Review of echocardiogram done in the past year shows that the patient had a normal ejection fraction and diastolic dysfunction Dr. Baer will consult to optimize medical management (3) Fluid overload Qualifiers: Hypervolemia type: unspecified Qualified Code(s): E87.70 - Fluid overload, unspecified Is this a current diagnosis for this admission?: Yes (4) GI bleed Qualifiers: GI bleed type/associated pathology: melena Qualified Code(s): K92.1 - Melena Is this a current diagnosis for this admission?: YesPlan: An endoscopy was unremarkable Patient likely has lower GI bleed Patient may need a colonoscopy when stable if bleeding recurs (5) Hypoglycemia Is this a current diagnosis for this admission?: YesPlan: At the beginning of his hospitalization Has resolved (6) Thrombocytopenia Is this a current diagnosis for this admission?: YesPlan: The etiology is unclear Maybe secondary to low-grade DIC Likely to be secondary to Zyvox Zyvox was discontinued patient needs to be treated with daptomycin (7) Atrial flutter Is this a current diagnosis for this admission?: YesPlan: Rate controlled Dr. Baer to review and optimize medical management (8) Osteomyelitis Is this a current diagnosis for this admission?: YesPlan: Osteomyelitis of the right foot Continue the imipenem and daptomycin until 10/14/2016 Continue wound vac care and dressing changes right foot - Time Time Spent with patient: 35 or more minutes
--- NOTE | 2016-10-07 14:25 | PDOC PROGRESS REPORT ---
Subjective Progress Note for:: 10/07/16 Subjective:: Patient is extremely short of breath today. Chest x-ray is very suggestive of acute pulmonary edema. He underwent upper endoscopy late last week for possible GI bleeding. Negative findings. No ulcer noted. His bleeding has not significantly improved to warrant further workup. I do not believe he'll be able to tolerate a colonoscopy. His breathing status needs to be improved prior to consideration. His hemoglobin seems stable. No gross rectal bleeding is noted. Physical Exam Vital Signs: Temp Pulse Resp BP Pulse Ox 98.2 F 105 H 25 H 150/63 H 100 10/07/16 11:22 10/07/16 11:22 10/07/16 12:30 10/07/16 11:22 10/07/16 12:30 Intake & Output 10/06/16 10/07/16 10/08/16 06:59 06:59 06:59 Intake Total 2454 1931 Output Total 1625 3000 Balance 829 -1069 Weight 135.5 kg 137.1 kg General appearance: PRESENT: severe distress Head exam: PRESENT: atraumatic, normocephalic Eye exam: PRESENT: EOMI, PERRLA. ABSENT: nystagmus, periorbital swelling, scleral icterus Mouth exam: PRESENT: neck supple Throat exam: ABSENT: tonsillar exudate, tonsillogmegaly Neck exam: ABSENT: meningismus, tenderness, thyromegaly Respiratory exam: PRESENT: accessory muscle use, crackles, tachypnea Cardiovascular exam: PRESENT: RRR, +S1, +S2 GI/Abdominal exam: PRESENT: soft. ABSENT: Keenan's sign, rebound, rigid, tenderness Extremities exam: ABSENT: joint swelling Musculoskeletal exam: PRESENT: full ROM Neurological exam: PRESENT: awake, oriented to time, oriented to situation, CN II-XII grossly intact Skin exam: PRESENT: mottled. ABSENT: pallor, petechiae, urticaria, vesicles Results Laboratory Results: 10/07/16 05:25 10/07/16 05:25 10/07/16 10/07/16 05:25 05:25 WBC 5.4 RBC 3.01 L Hgb 8.1 L Hct 24.8 L MCV 83 MCH 27.0 MCHC 32.8 RDW 19.7 H Plt Count 70 L Seg Neutrophils % 79.5 H Lymphocytes % 10.3 L Monocytes % 9.2 Eosinophils % 0.7 Basophils % 0.3 Absolute Neutrophils 4.3 Absolute Lymphocytes 0.6 Absolute Monocytes 0.5 Absolute Eosinophils 0.0 Absolute Basophils 0.0 Sodium 142.9 Potassium 4.4 Chloride 100 Carbon Dioxide 33 H Anion Gap 10 BUN 35 H Creatinine 1.72 H Est GFR ( Amer) 47 L Est GFR (Non-Af Amer) 39 L Glucose 93 Calcium 8.5 10/04/16 10/04/16 10/04/16 04:30 06:25 11:25 Creatine Kinase 43 L 37 L CK-MB (CK-2) 2.68 Troponin I 0.069 NT-Pro-B Natriuret Pep 10/04/16 10/04/16 10/04/16 11:25 18:25 18:25 Creatine Kinase 47 L CK-MB (CK-2) 2.53 3.51 Troponin I 0.065 0.067 NT-Pro-B Natriuret Pep 10/05/16 10/07/16 09:00 05:25 Creatine Kinase CK-MB (CK-2) Troponin I 0.077 NT-Pro-B Natriuret Pep 06408 H Impressions: Chest X-Ray 10/07/16 08:00 IMPRESSION: Stable chest, diffuse pulmonary parenchymal opacities bilaterally. PICC line remains in place. Assessment & Plan - Diagnosis (1) Thrombocytopenia Is this a current diagnosis for this admission?: Yes (2) Anemia due to acute blood loss Plan: Patient's anemia may be due to chronic conditions. Patient states that he's had a colonoscopy done in the past, we'll continue to search for the record. EGD noted to be normal. Currently too short of breath for further GI evaluation. Question if he needs to be taken back to the ICU for intubation. He certainly will tire at some point. We'll continue to follow. Further recommendations to follow. - Time Time Spent with patient: 25-34 minutes
[2016-10-07] MEDS ORDERED: CALCIUM CARBONATE 500 MG TAB.CHEW PO ONE (15:00)
[2016-10-07] MEDS: DOXAZOSIN MESYLATE 4 MG TABLET PO SCH (23:24)
[2016-10-07] MEDS: METOPROLOL SUCCINATE 50 MG TAB.SR.24H PO SCH (23:26)
[2016-10-07] MEDS: NORMAL SALINE 250 ML with FUROSEMIDE 250 MG IV PRN ×2 (23:26)
[2016-10-08] MEDS: HYDRALAZINE HCL INJ/PF 20 MG/1 ML SDV IV PRN (04:29)
[2016-10-08] MEDS: HYDRALAZINE HCL 50 MG TABLET PO SCH ×3 (06:42→23:15)
[2016-10-08] MEDS: CILASTATIN SODIUM IV SCH (06:44)
[2016-10-08] MEDS: NORMAL SALINE IV SCH (06:44)
[2016-10-08] MEDS: IMIPENEM IV SCH (06:44)
[2016-10-08 07:18] LABS: ABSOLUTE EOSINOPHILS # (AUTO) 0.1 10^3/uL (0.0-0.6); ABSOLUTE LYMPHOCYTES (AUTO) 0.8 10^3/uL (0.5-4.7); ABSOLUTE MONOCYTES (AUTO) 0.6 10^3/uL (0.1-1.4); ABSOLUTE NEUT (AUTO) 4.5 10^3/uL (1.7-8.2); BASOPHILS % (AUTO) 0.5 % (0-2); EOSINOPHILS % (AUTO) 1.2 % (0-6); HEMATOCRIT 24.9 % (37.9-51.0); HEMOGLOBIN 8.3 g/dL (13.5-17.0); LYMPHOCYTES % (AUTO) 13.1 % (13-45); MEAN CORPUSCULAR HEMOGLOBIN 27.1 pg (27.0-33.4); MEAN CORPUSCULAR HGB CONC 33.2 g/dL (32.0-36.0); MEAN CORPUSCULAR VOLUME 82 fl (80-97); MONOCYTES % (AUTO) 9.6 % (3-13); RED BLOOD COUNT 3.05 10^6/uL (4.35-5.55); RED CELL DISTRIBUTION WIDTH 19.6 % (11.5-14.0); SEGMENTED NEUTROPHILS % (AUTO) 75.6 % (42-78); WHITE BLOOD COUNT 5.9 10^3/uL (4.0-10.5)
[2016-10-08 07:20] LABS: ALANINE AMINOTRANSFERASE 37 U/L (21-72); ALBUMIN 2.9 g/dL (3.5-5.0); ALKALINE PHOSPHATASE 65 U/L (38-126); ANION GAP 10 (5-19); ASPARTATE AMINO TRANSFERASE 30 U/L (17-59); BILIRUBIN,DIRECT 0.4 mg/dL (0.0-0.4); BILIRUBIN,TOTAL 0.7 mg/dL (0.2-1.3); BLOOD UREA NITROGEN 33 mg/dL (7-20); CALCIUM 8.7 mg/dL (8.4-10.2); CARBON DIOXIDE 36 mmol/L (22-30); CHLORIDE 98 mmol/L (98-107); CREATININE RESULT 1.66 mg/dL (0.52-1.25); GLUCOSE 120 mg/dL (75-110); POTASSIUM 4.1 mmol/L (3.6-5.0); SODIUM 144.3 mmol/L (137-145)
--- NOTE | 2016-10-08 08:49 | PDOC PROGRESS REPORT ---
Subjective Progress Note for:: 10/08/16 Subjective:: No acute events overnight, counts are recovering, platelet count is 100 now, hemoglobin is still in the 8 range. Physical Exam Vital Signs: Temp Pulse Resp BP Pulse Ox 98.4 F 63 30 H 184/63 H 97 10/08/16 07:46 10/08/16 07:46 10/08/16 07:46 10/08/16 07:46 10/08/16 07:46 Intake & Output 10/07/16 10/08/16 10/09/16 06:59 06:59 06:59 Intake Total 1931 2276 Output Total 3000 4500 Balance -1069 -3244 Weight 137.1 kg 133.6 kg General appearance: PRESENT: no acute distress, well-developed, well-nourished Head exam: PRESENT: atraumatic, normocephalic Eye exam: PRESENT: conjunctiva pink, EOMI, PERRLA. ABSENT: scleral icterus Ear exam: PRESENT: normal external ear exam Mouth exam: PRESENT: moist, tongue midline Neck exam: ABSENT: carotid bruit, JVD, lymphadenopathy, thyromegaly Respiratory exam: PRESENT: clear to auscultation [place]. ABSENT: rales, rhonchi, wheezes Cardiovascular exam: PRESENT: RRR. ABSENT: diastolic murmur, rubs, systolic murmur Pulses: PRESENT: normal dorsalis pedis pul Vascular exam: PRESENT: normal capillary refill GI/Abdominal exam: PRESENT: normal bowel sounds, soft. ABSENT: distended, guarding, mass, organolmegaly, rebound, tenderness Rectal exam: PRESENT: deferred Extremities exam: PRESENT: full ROM. ABSENT: calf tenderness, clubbing, pedal edema Neurological exam: PRESENT: alert, awake, oriented to person, oriented to place , oriented to time, oriented to situation, CN II-XII grossly intact. ABSENT: motor sensory deficit Psychiatric exam: PRESENT: appropriate affect, normal mood. ABSENT: homicidal ideation, suicidal ideation Skin exam: PRESENT: dry, intact, warm. ABSENT: cyanosis, rash Results Laboratory Results: 10/08/16 06:45 10/08/16 06:45 10/08/16 10/08/16 06:45 06:45 WBC 5.9 RBC 3.05 L Hgb 8.3 L Hct 24.9 L MCV 82 MCH 27.1 MCHC 33.2 RDW 19.6 H Plt Count 102 L Seg Neutrophils % 75.6 Lymphocytes % 13.1 Monocytes % 9.6 Eosinophils % 1.2 Basophils % 0.5 Absolute Neutrophils 4.5 Absolute Lymphocytes 0.8 Absolute Monocytes 0.6 Absolute Eosinophils 0.1 Absolute Basophils 0.0 Sodium 144.3 Potassium 4.1 Chloride 98 Carbon Dioxide 36 H Anion Gap 10 BUN 33 H Creatinine 1.66 H Est GFR ( Amer) 49 L Est GFR (Non-Af Amer) 40 L Glucose 120 H Calcium 8.7 Total Bilirubin 0.7 AST 30 ALT 37 Alkaline Phosphatase 65 Total Protein 6.0 L Albumin 2.9 L 10/04/16 10/04/16 10/04/16 04:30 06:25 11:25 Creatine Kinase 43 L 37 L CK-MB (CK-2) 2.68 Troponin I 0.069 NT-Pro-B Natriuret Pep 10/04/16 10/04/16 10/04/16 11:25 18:25 18:25 Creatine Kinase 47 L CK-MB (CK-2) 2.53 3.51 Troponin I 0.065 0.067 NT-Pro-B Natriuret Pep 10/05/16 10/07/16 09:00 05:25 Creatine Kinase CK-MB (CK-2) Troponin I 0.077 NT-Pro-B Natriuret Pep 14305 H Impressions: Chest X-Ray 10/07/16 08:00 IMPRESSION: Stable chest, diffuse pulmonary parenchymal opacities bilaterally. PICC line remains in place. Assessment & Plan - Diagnosis (1) Thrombocytopenia Is this a current diagnosis for this admission?: YesPlan: Improved, likely drug induced from the Linezolid. he cannot receive that drug any longer, he will have to receive daptomycin if needed for VRE. Otherwise, could be from myelosuppression from either DIC versus infection itself, but overall everything is improving. (2) Anemia requiring transfusions Is this a current diagnosis for this admission?: YesPlan: Seems to have stabilized, hold on transfusion, continue to monitor. - Time Time Spent with patient: 15-24 minutes Critical Time spent with patient: 15-24 minutes Disposition: We will sign off, please call with any questions.
[2016-10-08 09:04] LABS: ARTERIAL BLOOD BASE EXCESS 9.7 mmol/L
[2016-10-08] MEDS: ISOSORBIDE MONONITRATE 30 MG TAB.ER.24H PO SCH (10:13)
[2016-10-08] MEDS: CALCIUM CARBONATE 500 MG TAB.CHEW PO SCH (10:13)
[2016-10-08] MEDS: FOLIC ACID/VITAMIN B COMP W-C CAPSULE PO SCH (10:13)
[2016-10-08] MEDS: FERROUS SULFATE 325 MG TABLET PO SCH ×2 (10:13→17:29)
[2016-10-08] MEDS: DILTIAZEM HCL 120 MG CAP.SR.24H PO SCH ×2 (10:14→23:16)
[2016-10-08] MEDS: TIOTROPIUM BROMIDE DPI 5 CAP/KIT (18 MCG/CAP) IH SCH (10:15)
[2016-10-08] MEDS: DOCUSATE SODIUM 100 MG CAPSULE PO SCH ×2 (10:16→17:30)
[2016-10-08] MEDS: INSULIN GLARGINE,HUM.REC.ANLOG 300 UNIT/3 ML INSULN.PEN SUBCUT SCH (10:16)
[2016-10-08] MEDS: DAPTOMYCIN 500 MG in NORMAL SALINE 50 ML IV SCH (10:20)
--- NOTE | 2016-10-08 13:59 | PDOC CONSULTATION ---
Consultation Consult Date: 10/08/16 Attending physician:: HERANNDO MOORE Consult reason:: CHF History of Present Illness Admission Date/PCP: 10/03/16 04:59 SUDEEP CHEUNG Patient complains of: Shortness of breath and leg edema History of Present Illness: 81-year-old male with multiple medical problems who recently was admitted for diabetic foot ulcer and VRE. Also has thrombocytopenia possibly drug induced. He admits to daily cough non pulent no hemoptysis. Patient also complaining of progressive worsening dyspnea and pedal edema. Patient gives history of congestive heart failure. Patient was also noted to have lower GI bleeding and did undergo blood transfusion. I'm been consulted to help with management of congestive heart failure. In addition he was also noted to have abnormal troponin I elevation. Patient however denied any chest pain as such. Patient denied any recent problems with syncope, near syncope. Patient physical activity quite limited. History taking was somewhat limited because patient was wearing noninvasive positive pressure ventilation mask. Past Medical History Cardiac Medical History: Reports: Atrial Fibrillation, Congestive Heart Failure - Diastolic, Hyperlipidema, Hypertension Denies: DVT, Myocardial Infarction, Pulmonary Embolism Pulmonary Medical History: Reports: Chronic Obstructive Pulmonary Disease (COPD) , Sleep Apnea Neurological Medical History: Denies: Seizures Endocrine Medical History: Reports: Diabetes Mellitus Type 1, Diabetes Mellitus Type 2 Denies: Hyperthyroidism, Hypothyroidism GI Medical History: Denies: Cirrhosis, Gastroesophageal Reflux Disease, Hepatitis Musculoskeltal Medical History: Denies: Arthritis Psychiatric Medical History: Reports: Depression Hematology: Reports: Anemia Infectious Medical History: Reports: Methicillin-Resistant Staph Aureus Past Surgical History Past Surgical History: Reports: Orthopedic Surgery - Right fifth metatarsal amputation, Other - Nasal surgery many years ago while in the [employer] Social History Information Source: Patient Lives with: [facility] Smoking Status: Former Smoker Frequency of Alcohol Use: None Hx Recreational Drug Use: No Drugs: None Hx Prescription Drug Abuse: No - Advance Directive Resuscitation Status: Full Code Family History Family History: CAD, CVA, DM Parental Family History Reviewed: Yes Children Family History Reviewed: Yes Sibling(s) Family History Reviewed.: Yes Medication/Allergy Home Medications: Apixaban [Eliquis 5 mg Tablet] 5 mg PO Q12 07/03/16 B Complex & C No.20/Folic Acid [Renal Caps Softgel] 1 cap PO DAILY 07/03/16 Ergocalciferol (Vitamin D2) [Vitamin D2] 50,000 units PO ABDALLA 07/03/16 Ferrous Sulfate [Feosol 325 mg Tablet] 325 mg PO BID 07/03/16 Isosorbide Mononitrate [Imdur 30 mg Tablet.er] 30 mg PO DAILY 07/03/16 Tiotropium [place] [Spiriva Handihaler 18 mcg/dose (30 Dose)] 1 cap IH DAILY 05/09 Furosemide [Lasix 40 mg Tablet] 40 mg PO DAILY #0 tablet 07/24/16 Hydralazine HCl [Apresoline 50 mg Tablet] 100 mg PO Q8 #0 tablet 07/24/16 Polyethylene Glycol 3350 [Miralax Powder 17 gm/Packet] 17 gm PO DAILY #0 powd.pack 07/24/16 Amlodipine Besylate [Norvasc 10 mg Tablet] 10 mg PO DAILY tablet 08/13/16 Aspirin [Adult Low Dose Aspirin EC] 81 mg PO DAILY #30 tablet. 08/13/16 Docusate Sodium [Colace 100 mg Capsule] 100 mg PO BID capsule 08/13/16 Doxazosin Mesylate [Cardura 4 mg Tablet] 4 mg PO QHS tablet 08/13/16 Epoetin Ernesto [Procrit Inj 20,000 Unit/1 ml Vial (Renal)] 20,000 unit SUBCUT Q7D ml 08/13/16 Insulin Lispro [Humalog Insulin (Lispro) 100 unit/mL] 0 - 12 unit SUBCUT ACHSP PRN unit 08/13/16 Metoprolol Succinate [Toprol Xl 50 mg Tab.sr] 50 mg PO QHS tab.sr.24h 08/13/16 Linezolid [Zyvox RTU 600 mg/300 ml Premixed] 600 mg IV Q12 #60 rtupb 09/17/16 Prednisone [Deltasone 20 mg Tablet] 40 mg PO DAILY #30 tablet 09/17/16 Acetaminophen [Tylenol 325 mg Tablet] 650 mg PO Q4HP PRN 10/03/16 Imipenem/Cilastatin Sodium [Imipenem-Cilastatin 500 mg Vl] 500 mg IV Q6 Insulin Glargine,Hum.rec.anlog [Lantus Insulin 100 Unit/mL] 35 unit SUBCUT QHS 10/03/16 Ipratropium/Albuterol Sulfate [Duoneb 3 ml Ampul] 1 vial NEB Q6 04/13/17 Levalbuterol HCl [Xopenex Neb 1.25 mg/3 ml Ampul] 1.25 mg NEB RTQ4HP PRN Omeprazole 20 mg PO QAM 10/03/16 Allergies/Adverse Reactions: PPD black rubber mix Allergy (Verified 08/05/16 00:06) Review of Systems Review of Systems: Please see history of present illness and past medical history as wall. Constitutional: No fever or chills reported. Head : No recent chronic headaches, recent head injury. Eyes: No recent eye pain, diplopia, redness, discharge, acute visual changes. Ears: No recent chronic ear pain, acute hearing loss, ear discharge. Oral cavity: No recent ulcerations, bleeding, oral cavity discomfort. Neck: No recent acute neck pain reported. Hematologic: No recent easy bruising or bleeding or hematologic malignancy reported. Lymphatic: No recent lymphatic malignancy, chronic lymphadenopathy reported yet Cardiovascular system review: See history of present illness. Respiratory system review: Patient has noted some cough with sputum production but denied hemoptysis, blood clots in the lungs reported. Significant Shortness of breath on exertion Gastrointestinal system review: Negative for any recent acute or chronic abdominal pain, hematemesis. Patient noted to have recent melena and lower GI bleed. Genitourinary system review: No recent acute or chronic hematuria, flank pain, UTI etc. reported. Skin system review: Negative for any recent abnormal bruising, no rash, no pruritus reported. Neurologic: No prior history of strokes, mini strokes, seizure disorder. Psychologic: No history of major psychosis or major depression reported. Musculoskeletal: Minor aches and pains reported. No acute joint swelling reported. Endocrine: No recent polyuria, polydipsia, recent heat or cold intolerance. Physical Exam Vital Signs: Temp Pulse Resp BP Pulse Ox 98.1 F 61 23 H 195/63 H 97 10/08/16 11:56 10/08/16 11:56 10/08/16 12:30 10/08/16 11:56 10/08/16 11:56 Intake & Output 10/07/16 10/08/16 10/09/16 06:59 06:59 06:59 Intake Total 5881 6446 360 Output Total 3000 4500 1200 Balance -1069 -2224 -840 Weight 137.1 kg 133.6 kg Exam: GENERAL: well-nourished and in no acute distress. Alert and oriented x3 HEAD: Atraumatic, normocephalic. EYES: Pupils equal round and reactive to light, extraocular movements intact, sclera anicteric, conjunctiva are normal. ENT: TMs normal, nares patent, oropharynx clear without exudates. Moist mucous membranes. No oral ulcerations or bleeding gums noted NECK: supple without lymphadenopathy. Trachea is central. No cervical or axillary lymphadenopathy noted. Carotids are 2+, JVD 10 CM LUNGS: Respiration seems nonlabored, no significant accessory muscle action noted. Breath sounds bilateral fine crackles at bases and also bilateral mild wheezing. Mild dullness noted both bases. CHEST: Palpation of the chest wall shows no significant chest wall tenderness. No other significant abnormalities noted. HEART: [place] [employer], No PSH, 1/6 JEIMY aortic area, 1/6 alfaro systolic murmur mitral area, no rubs, no gallops. ABDOMEN: Soft, no significant tenderness appreciated, normoactive bowel sounds. No guarding, no rebound. No rigidity noted . No masses appreciated. EXTREMITIES: Pedal pulses are 1-2+, no calf tenderness noted. No clubbing or cyanosis.1-2+ + pedal edema noted NEUROLOGICAL: Focused neurological exam showed no significant neurologic deficit. Normal speech, no focal weakness appreciated. PSYCH: Normal mood, normal affect. Judgment and insight within normal limits. SKIN: No significant ecchymosis, signs of pruritus noted. Patient noted to have chronic dermatitis changes probably from chronic venous insufficiency both lower legs. MUSCULOSKELETAL EXAM: No significant joint swelling noted. Results Laboratory Results: 10/08/16 06:45 10/08/16 06:45 10/08/16 10/08/16 10/08/16 06:45 06:45 08:50 WBC 5.9 RBC 3.05 L Hgb 8.3 L Hct 24.9 L MCV 82 MCH 27.1 MCHC 33.2 RDW 19.6 H Plt Count 102 L Seg Neutrophils % 75.6 Lymphocytes % 13.1 Monocytes % 9.6 Eosinophils % 1.2 Basophils % 0.5 Absolute Neutrophils 4.5 Absolute Lymphocytes 0.8 Absolute Monocytes 0.6 Absolute Eosinophils 0.1 Absolute Basophils 0.0 Carbonic Acid 1.71 H HCO3/H2CO3 Ratio 20:1 ABG pH 7.42 ABG pCO2 56.8 H ABG pO2 70.4 L ABG HCO3 35.6 H ABG O2 Saturation 94.0 ABG Base Excess 9.7 FiO2 35% Sodium 144.3 Potassium 4.1 Chloride 98 Carbon Dioxide 36 H Anion Gap 10 BUN 33 H Creatinine 1.66 H Est GFR ( Amer) 49 L Est GFR (Non-Af Amer) 40 L Glucose 120 H Calcium 8.7 Total Bilirubin 0.7 AST 30 ALT 37 Alkaline Phosphatase 65 Total Protein 6.0 L Albumin 2.9 L 10/04/16 10/04/16 10/04/16 04:30 06:25 11:25 Creatine Kinase 43 L 37 L CK-MB (CK-2) 2.68 Troponin I 0.069 NT-Pro-B Natriuret Pep 10/04/16 10/04/16 10/04/16 11:25 18:25 18:25 Creatine Kinase 47 L CK-MB (CK-2) 2.53 3.51 Troponin I 0.065 0.067 NT-Pro-B Natriuret Pep 10/05/16 10/07/16 09:00 05:25 Creatine Kinase CK-MB (CK-2) Troponin I 0.077 NT-Pro-B Natriuret Pep 32580 H Impressions: Chest X-Ray 10/07/16 08:00 IMPRESSION: Stable chest, diffuse pulmonary parenchymal opacities bilaterally. PICC line remains in place. Assessment & Plan - Diagnosis (1) Acute on chronic diastolic (congestive) heart failure Is this a current diagnosis for this admission?: Yes (2) Respiratory failure Qualifiers: Chronicity: acute on chronic Respiratory failure complication: hypoxia and hypercapnia Qualified Code(s): J96.21 - Acute and chronic respiratory failure with hypoxia Is this a current diagnosis for this admission?: Yes (3) Hypertension Qualifiers: Hypertension type: essential hypertension Qualified Code(s): I10 - Essential (primary) hypertension Is this a current diagnosis for this admission?: Yes (4) Atrial fibrillation Qualifiers: Atrial fibrillation type: chronic Qualified Code(s): I48.2 - Chronic atrial fibrillation Is this a current diagnosis for this admission?: Yes (5) COPD (chronic obstructive pulmonary disease) Qualifiers: COPD type: unspecified COPD Qualified Code(s): J44.9 - Chronic obstructive pulmonary disease, unspecified Is this a current diagnosis for this admission?: Yes (6) Chronic kidney disease (CKD) Qualifiers: Chronic kidney disease stage: stage 4 (severe) Qualified Code(s): N18.4 - Chronic kidney disease, stage 4 (severe) Is this a current diagnosis for this admission?: Yes (7) Obstructive sleep apnea Is this a current diagnosis for this admission?: Yes (8) Thrombocytopenia Is this a current diagnosis for this admission?: Yes (9) Anemia due to acute blood loss Is this a current diagnosis for this admission?: Yes - Notes Notes: Congestive heart failure: This is acute on chronic diastolic heart failure. Chest x-ray and clinical exams suggest continuing volume overload. Recommend continuing diuretic therapy and escalating it. Recommend rate control for chronic atrial fibrillation. Continue IV Lasix drip. Will add Zaroxolyn to the regimen. Respiratory failure: This is related to combination of COPD, CHF, obesity hypoventilation syndrome. It is acute on chronic, both hypercapnic and hypoxic. Agree with noninvasive ventilation and frequent monitoring of oxygenation and CO2 retention. Continue antibiotic therapy for possible underlying pneumonia. Hypertension: Blood pressure goal in this patient is 140/90 or less. Atrial fibrillation: Patient has chronic atrial fibrillation. Based on [id number] score chronic anticoagulation is indicated but currently felt to be contraindicated due to recent GI bleed. We will seek oncology and GI opinion as to when would be safe to restart it. Continue with rate control with Cardizem. CKD: Patient seems to have chronic kidney disease. Creatinine been stable. Avoid any nephrotoxic agents, IV contrast agent dye etc. consider nephrology evaluation. Presence of chronic kidney disease is a prognostic factor. Obstructive sleep apnea: Patient currently on noninvasive positive pressure ventilation. Patient being followed by move coordinator. Thrombocytopenia: Patient being followed by oncologist. Platelet counts improving. Anemia secondary to acute blood loss from GI bleed. Currently stable. Follow GI recommendations. - Time Time Spent: 50 to 70 Minutes - CODE STATUS was discussed, patient remains full code. Surrogate decision-maker Mitesh Angulo. Multiple medical problems were addressed.More than 50% of the time spent coordinating care, discussing management plans with involved caregivers. Management plans discussed with involved personnels. Medical decision making was of moderate to high complexity , patient's has multiple severe comorbidities. Medications reviewed and adjusted accordingly: Yes
[2016-10-08] MEDS: IMIPENEM/CILASTATIN SODIUM 500 MG in NORMAL SALINE 100 ML IV SCH ×2 (14:34→23:23)
--- NOTE | 2016-10-08 18:32 | PDOC CONSULTATION ---
Consultation Consult Date: 10/07/16 Attending physician:: HERNANDO MOORE Consult reason:: acute on chronic resp fail History of Present Illness Admission Date/PCP: 10/03/16 04:59 SUDEEP CHEUNG History of Present Illness: 81-year-old male with multiple medical problems who recently was admitted for diabetic foot ulcer VRE also has thrombocytopenia possibly drug inducedHe amits to daily cough non pulent no hemoptysis;states his PPD was neg date unknown.He denies history chronic alek diseease as a child.He denies passive smoke as a child 4+ passive as a adult .He smoked 2 ppd x 35 yrs w/o x 7 yrs;[facility] [place] large amounts dirt,dust and chemicalLOng hx of chf. Past Medical History Cardiac Medical History: Reports: Atrial Fibrillation, Congestive Heart Failure - Diastolic, Hyperlipidema, Hypertension Denies: DVT, Myocardial Infarction, Pulmonary Embolism Pulmonary Medical History: Reports: Chronic Obstructive Pulmonary Disease (COPD) , Respiratory Failure, Sleep Apnea Neurological Medical History: Denies: Seizures Endocrine Medical History: Reports: Diabetes Mellitus Type 1, Diabetes Mellitus Type 2 Denies: Hyperthyroidism, Hypothyroidism GI Medical History: Denies: Cirrhosis, Gastroesophageal Reflux Disease, Hepatitis Musculoskeltal Medical History: Denies: Arthritis Psychiatric Medical History: Reports: Depression Hematology: Reports: Anemia Infectious Medical History: Reports: Methicillin-Resistant Staph Aureus, Vancomycin-Resistant Enterococci Past Surgical History Past Surgical History: Reports: Orthopedic Surgery - Right fifth metatarsal amputation, Other - Nasal surgery many years ago while in the [employer]. Social History Lives with: [facility] Smoking Status: Former Smoker Cigarettes Packs Per Day: 2 Number of Years Smokin Last Time Smoked: 7 yrs Passive smoke exposure as: Adult Frequency of Alcohol Use: None Hx Recreational Drug Use: No Drugs: None Hx Prescription Drug Abuse: No Have you been exposed to any sick contacts recently?: No Have you had any recent respiratory illnesses?: No Have you travelled outside of [place] in the past 12 months?: No - Advance Directive Resuscitation Status: Full Code Family History Family History: CAD, CVA, DM Parental Family History Reviewed: No Children Family History Reviewed: No Sibling(s) Family History Reviewed.: No Medication/Allergy Home Medications: Apixaban [Eliquis 5 mg Tablet] 5 mg PO Q12 07/03/16 B Complex & C No.20/Folic Acid [Renal Caps Softgel] 1 cap PO DAILY 07/03/16 Ergocalciferol (Vitamin D2) [Vitamin D2] 50,000 units PO ABDALLA 07/03/16 Ferrous Sulfate [Feosol 325 mg Tablet] 325 mg PO BID 07/03/16 Isosorbide Mononitrate [Imdur 30 mg Tablet.er] 30 mg PO DAILY 07/03/16 Tiotropium [place] [Spiriva Handihaler 18 mcg/dose (30 Dose)] 1 cap IH DAILY 05/09 Furosemide [Lasix 40 mg Tablet] 40 mg PO DAILY #0 tablet 07/24/16 Hydralazine HCl [Apresoline 50 mg Tablet] 100 mg PO Q8 #0 tablet 07/24/16 Polyethylene Glycol 3350 [Miralax Powder 17 gm/Packet] 17 gm PO DAILY #0 powd.pack 07/24/16 Amlodipine Besylate [Norvasc 10 mg Tablet] 10 mg PO DAILY tablet 08/13/16 Aspirin [Adult Low Dose Aspirin EC] 81 mg PO DAILY #30 tablet. 08/13/16 Docusate Sodium [Colace 100 mg Capsule] 100 mg PO BID capsule 08/13/16 Doxazosin Mesylate [Cardura 4 mg Tablet] 4 mg PO QHS tablet 08/13/16 Epoetin Ernesto [Procrit Inj 20,000 Unit/1 ml Vial (Renal)] 20,000 unit SUBCUT Q7D ml 08/13/16 Insulin Lispro [Humalog Insulin (Lispro) 100 unit/mL] 0 - 12 unit SUBCUT ACHSP PRN unit 08/13/16 Metoprolol Succinate [Toprol Xl 50 mg Tab.sr] 50 mg PO QHS tab.sr.24h 08/13/16 Linezolid [Zyvox RTU 600 mg/300 ml Premixed] 600 mg IV Q12 #60 rtupb 09/17/16 Prednisone [Deltasone 20 mg Tablet] 40 mg PO DAILY #30 tablet 09/17/16 Acetaminophen [Tylenol 325 mg Tablet] 650 mg PO Q4HP PRN 10/03/16 Imipenem/Cilastatin Sodium [Imipenem-Cilastatin 500 mg Vl] 500 mg IV Q6 Insulin Glargine,Hum.rec.anlog [Lantus Insulin 100 Unit/mL] 35 unit SUBCUT QHS 10/03/16 Ipratropium/Albuterol Sulfate [Duoneb 3 ml Ampul] 1 vial NEB Q6 10/03/16 Levalbuterol HCl [Xopenex Neb 1.25 mg/3 ml Ampul] 1.25 mg NEB RTQ4HP PRN Omeprazole 20 mg PO QAM 10/03/16 Allergies/Adverse Reactions: PPD black rubber mix Allergy (Verified 08/05/16 00:06) Physical Exam Vital Signs: Temp Pulse Resp BP Pulse Ox 98.2 F 105 H 25 H 150/63 H 100 10/07/16 11:22 10/07/16 11:22 10/07/16 12:30 10/07/16 11:22 10/07/16 12:30 Intake & Output 10/06/16 10/07/16 10/08/16 06:59 06:59 06:59 Intake Total 2454 1931 Output Total 1625 3000 Balance 829 -1069 Weight 135.5 kg 137.1 kg General appearance: PRESENT: cooperative, disheveled, morbidly obese Head exam: PRESENT: atraumatic, normocephalic Eye exam: PRESENT: conjunctiva pale, EOMI Mouth exam: PRESENT: dry mucosa, neck supple Neck exam: ABSENT: carotid bruit, JVD, lymphadenopathy, thyromegaly Respiratory exam: PRESENT: crackles, prolonged expiratory phas, symmetrical Cardiovascular exam: PRESENT: irregular rhythm Pulses: PRESENT: normal radial pulses GI/Abdominal exam: PRESENT: normal bowel sounds, soft. ABSENT: distended, guarding, mass, organolmegaly, rebound, tenderness Rectal exam: PRESENT: deferred Extremities exam: PRESENT: +2 edema, other - chronic venous changes Neurological exam: PRESENT: awake Psychiatric exam: PRESENT: flat affect Skin exam: PRESENT: dry Results Laboratory Results: 10/07/16 05:25 10/07/16 05:25 10/07/16 10/07/16 05:25 05:25 WBC 5.4 RBC 3.01 L Hgb 8.1 L Hct 24.8 L MCV 83 MCH 27.0 MCHC 32.8 RDW 19.7 H Plt Count 70 L Seg Neutrophils % 79.5 H Lymphocytes % 10.3 L Monocytes % 9.2 Eosinophils % 0.7 Basophils % 0.3 Absolute Neutrophils 4.3 Absolute Lymphocytes 0.6 Absolute Monocytes 0.5 Absolute Eosinophils 0.0 Absolute Basophils 0.0 Sodium 142.9 Potassium 4.4 Chloride 100 Carbon Dioxide 33 H Anion Gap 10 BUN 35 H Creatinine 1.72 H Est GFR ( Amer) 47 L Est GFR (Non-Af Amer) 39 L Glucose 93 Calcium 8.5 10/04/16 10/04/16 10/04/16 04:30 06:25 11:25 Creatine Kinase 43 L 37 L CK-MB (CK-2) 2.68 Troponin I 0.069 NT-Pro-B Natriuret Pep 10/04/16 10/04/16 10/04/16 11:25 18:25 18:25 Creatine Kinase 47 L CK-MB (CK-2) 2.53 3.51 Troponin I 0.065 0.067 NT-Pro-B Natriuret Pep 10/05/16 10/07/16 09:00 05:25 Creatine Kinase CK-MB (CK-2) Troponin I 0.077 NT-Pro-B Natriuret Pep 47638 H Impressions: Chest X-Ray 10/07/16 08:00 IMPRESSION: Stable chest, diffuse pulmonary parenchymal opacities bilaterally. PICC line remains in place. Assessment & Plan - Diagnosis (1) Emphysema lung Is this a current diagnosis for this admission?: Yes (2) Obesity Is this a current diagnosis for this admission?: Yes (3) Obesity hypoventilation syndrome Is this a current diagnosis for this admission?: YesPlan: hypoxic hypercapnic (4) Acute and chronic respiratory failure ([id number]) Plan: emphysema,obesity-hypoventilatio,chf,crf if patient stable chest CT (5) Thrombocytopenia Is this a current diagnosis for this admission?: Yes (6) Atrial fibrillation Qualifiers: Atrial fibrillation type: chronic Qualified Code(s): I48.2 - Chronic atrial fibrillation Is this a current diagnosis for this admission?: Yes (7) Chronic kidney disease (CKD) Qualifiers: Chronic kidney disease stage: stage 4 (severe) Qualified Code(s): N18.4 - Chronic kidney disease, stage 4 (severe) Is this a current diagnosis for this admission?: Yes (8) Obstructive sleep apnea Is this a current diagnosis for this admission?: Yes
[2016-10-08] MEDS: DOXAZOSIN MESYLATE 4 MG TABLET PO SCH (23:16)
[2016-10-08] MEDS: METOPROLOL SUCCINATE 50 MG TAB.SR.24H PO SCH (23:16)
[2016-10-09] MEDS: INSULIN GLARGINE,HUM.REC.ANLOG 300 UNIT/3 ML INSULN.PEN SUBCUT SCH ×3 (00:17→22:39)
[2016-10-09] MEDS: INSULIN LISPRO 100 UNIT/ML 3 ML VIAL SUBCUT PRN ×4 (00:17→22:39)
[2016-10-09] MEDS: NORMAL SALINE 250 ML with FUROSEMIDE 250 MG IV PRN ×4 (01:09→22:38)
[2016-10-09] MEDS: HYDRALAZINE HCL INJ/PF 20 MG/1 ML SDV IV PRN (01:15)
[2016-10-09] MEDS: HYDRALAZINE HCL 50 MG TABLET PO SCH ×3 (05:50→22:38)
[2016-10-09] MEDS: IMIPENEM/CILASTATIN SODIUM 500 MG in NORMAL SALINE 100 ML IV SCH ×2 (05:51→13:00)
[2016-10-09 06:56] LABS: ANION GAP 8 (5-19); BLOOD UREA NITROGEN 35 mg/dL (7-20); CALCIUM 8.7 mg/dL (8.4-10.2); CARBON DIOXIDE 39 mmol/L (22-30); CHLORIDE 97 mmol/L (98-107); CREATININE RESULT 1.68 mg/dL (0.52-1.25); GLUCOSE 189 mg/dL (75-110); MAGNESIUM 1.9 mg/dL (1.6-2.3); POTASSIUM 3.9 mmol/L (3.6-5.0); SODIUM 144.2 mmol/L (137-145)
[2016-10-09 07:03] LABS: HEMATOCRIT 23.8 % (37.9-51.0); HGB HCT DIFFERENCE 0.2; MEAN CORPUSCULAR HEMOGLOBIN 27.3 pg (27.0-33.4); MEAN CORPUSCULAR HGB CONC 33.8 g/dL (32.0-36.0); MEAN CORPUSCULAR VOLUME 81 fl (80-97); RED BLOOD COUNT 2.95 10^6/uL (4.35-5.55); RED CELL DISTRIBUTION WIDTH 19.7 % (11.5-14.0); WHITE BLOOD COUNT 6.1 10^3/uL (4.0-10.5)
[2016-10-09 07:11] LABS: FREE T3 2.18 pg/mL (2.77-5.27)
[2016-10-09 07:24] LABS: THYROID STIMULATING HORMONE 1.39 uIU/mL (0.47-4.68)
[2016-10-09 07:40] LABS: ANISOCYTOSIS 2+; BAND NEUTROPHILS % (MANUAL) 4 % (3-5); BASOPHILS % (MANUAL) 0 % (0-2); EOSINOPHILS % (MANUAL) 2 % (0-6); HYPOCHROMASIA 1+; LYMPHOCYTES % (MANUAL) 11 % (13-45); OVALOCYTES 1+; POIKILOCYTOSIS 1+; POLYCHROMASIA SLIGHT; TOTAL CELLS COUNTED 100; TOXIC VACUOLATION PRESENT
[2016-10-09] MEDS: FERROUS SULFATE 325 MG TABLET PO SCH ×2 (09:36→17:49)
[2016-10-09] MEDS: ISOSORBIDE MONONITRATE 30 MG TAB.ER.24H PO SCH (09:36)
[2016-10-09] MEDS: CALCIUM CARBONATE 500 MG TAB.CHEW PO SCH (09:36)
[2016-10-09] MEDS: FOLIC ACID/VITAMIN B COMP W-C CAPSULE PO SCH (09:36)
[2016-10-09] MEDS: DILTIAZEM HCL 120 MG CAP.SR.24H PO SCH ×2 (09:37→22:39)
[2016-10-09] MEDS: METOLAZONE 2.5 MG TABLET PO SCH ×2 (09:37→17:48)
[2016-10-09] MEDS: TIOTROPIUM BROMIDE DPI 5 CAP/KIT (18 MCG/CAP) IH SCH (09:38)
[2016-10-09] MEDS: DOCUSATE SODIUM 100 MG CAPSULE PO SCH ×2 (09:40→17:49)
--- NOTE | 2016-10-09 10:00 | PDOC PROGRESS REPORT ---
Subjective Progress Note for:: 10/08/16 Subjective:: Patient was seen earlier today. At this time he was found resting on bilevel Pap. Patient states that he had no complaints. He felt that his breathing overall is better. No chest pain Physical Exam Vital Signs: Temp Pulse Resp BP Pulse Ox 98.2 F 63 29 H 174/53 H 90 L 10/08/16 16:35 10/08/16 16:35 10/08/16 16:35 10/08/16 16:35 10/08/16 16:35 Intake & Output 10/07/16 10/08/16 10/09/16 06:59 06:59 06:59 Intake Total 1931 2276 360 Output Total 3000 4500 1200 Balance -6619 -2224 -840 Weight 137.1 kg 133.6 kg General appearance: PRESENT: morbidly obese, well-developed, well-nourished - Resting in bed currently on bilevel Pap Eye exam: PRESENT: conjunctiva pink. ABSENT: scleral icterus Mouth exam: PRESENT: moist Respiratory exam: PRESENT: crackles. ABSENT: accessory muscle use, tachypnea Cardiovascular exam: PRESENT: RRR. ABSENT: gallop, rubs GI/Abdominal exam: PRESENT: hypoactive bowel sounds, soft - Obese. ABSENT: distended, tenderness Extremities exam: PRESENT: +2 edema. ABSENT: clubbing - No cyanosis, tenderness Neurological exam: PRESENT: alert, awake Skin exam: PRESENT: dry - Brawny skin With peripheral vascular changes of the lower extremities, normal color Results Laboratory Results: 10/08/16 06:45 10/08/16 06:45 10/08/16 10/08/16 10/08/16 06:45 06:45 08:50 WBC 5.9 RBC 3.05 L Hgb 8.3 L Hct 24.9 L MCV 82 MCH 27.1 MCHC 33.2 RDW 19.6 H Plt Count 102 L Seg Neutrophils % 75.6 Lymphocytes % 13.1 Monocytes % 9.6 Eosinophils % 1.2 Basophils % 0.5 Absolute Neutrophils 4.5 Absolute Lymphocytes 0.8 Absolute Monocytes 0.6 Absolute Eosinophils 0.1 Absolute Basophils 0.0 Carbonic Acid 1.71 H HCO3/H2CO3 Ratio 20:1 ABG pH 7.42 ABG pCO2 56.8 H ABG pO2 70.4 L ABG HCO3 35.6 H ABG O2 Saturation 94.0 ABG Base Excess 9.7 FiO2 35% Sodium 144.3 Potassium 4.1 Chloride 98 Carbon Dioxide 36 H Anion Gap 10 BUN 33 H Creatinine 1.66 H Est GFR ( Amer) 49 L Est GFR (Non-Af Amer) 40 L Glucose 120 H Calcium 8.7 Total Bilirubin 0.7 AST 30 ALT 37 Alkaline Phosphatase 65 Total Protein 6.0 L Albumin 2.9 L 10/04/16 10/04/16 10/04/16 04:30 06:25 11:25 Creatine Kinase 43 L 37 L CK-MB (CK-2) 2.68 Troponin I 0.069 NT-Pro-B Natriuret Pep 10/04/16 10/04/16 10/04/16 11:25 18:25 18:25 Creatine Kinase 47 L CK-MB (CK-2) 2.53 3.51 Troponin I 0.065 0.067 NT-Pro-B Natriuret Pep 10/05/16 10/07/16 09:00 05:25 Creatine Kinase CK-MB (CK-2) Troponin I 0.077 NT-Pro-B Natriuret Pep [id number] H Impressions: Chest X-Ray 10/07/16 08:00 IMPRESSION: Stable chest, diffuse pulmonary parenchymal opacities bilaterally. PICC line remains in place. Assessment & Plan - Diagnosis (1) Acute and chronic respiratory failure ([id number]) Plan: Continue bilevel Pap for now please. She was not able to be weaned. And has required more oxygen support as well as BiPAP over EPAP. Consult pulmonology. Likely his respiratory failure is multifactorial due to heart failure and pulmonary hypertension (2) Acute on chronic diastolic (congestive) heart failure Plan: Continue diuresis with Lasix drip. Continue to follow I's and O's. Continue fluid restriction (4) Lower GI bleed Is this a current diagnosis for this admission?: Yes - Time Time Spent with patient: 25-34 minutes - Inpatient Certification Medical Necessity: Need Close Monitoring Due to Risk of Patient Decompensation
[2016-10-09] MEDS: DAPTOMYCIN 500 MG in NORMAL SALINE 50 ML IV SCH (11:51)
[2016-10-09] MEDS: IPRATROPIUM/ALBUTEROL 0.5-2.5 MG/3 ML AMPUL NEB PRN ×2 (12:50→19:57)
--- NOTE | 2016-10-09 20:46 | PDOC PROGRESS REPORT ---
Subjective Progress Note for:: 10/09/16 Subjective:: Patient seen this morning. He was noted to be somewhat better but still very short of breath on minimal exertion. Patient was noted to be eating breakfast with nasal cannula on but subsequently needed to be placed back on BiPAP therapy. Pt is denying any chest arm or neck discomfort. Patient denying any PND, orthopnea. Patient denied any sustained palpitations, dizziness, syncope, near syncope. Patient denying any fever chills. Patient denying any other significant discomfort. Patient is maintaining atrial fibrillation. Review of systems: Rest review of systems negative. Medications: Medications have been reviewed. Physical Exam Vital Signs: Temp Pulse Resp BP Pulse Ox 99.0 F 61 29 H 159/60 H 94 10/09/16 20:00 10/09/16 20:00 10/09/16 20:00 10/09/16 20:00 10/09/16 18:05 Intake & Output 10/08/16 10/09/16 10/10/16 06:59 06:59 06:59 Intake Total 2276 1997 324 Output Total 4500 4700 2550 Balance -2224 -2703 -2226 Weight 133.6 kg 129.7 kg Exam: GENERAL: well-nourished and in no acute distress. Alert and oriented x3 HEAD: Atraumatic, normocephalic. EYES: Pupils equal round and reactive to light, extraocular movements intact, sclera anicteric, conjunctiva are normal. ENT: TMs normal, nares patent, oropharynx clear without exudates. Moist mucous membranes. No oral ulcerations or bleeding gums noted NECK: supple without lymphadenopathy. Trachea is central. No cervical or axillary lymphadenopathy noted. Carotids are 2+, JVD 10 CENTIMETERS LUNGS: Respiration seems nonlabored, no significant accessory muscle action noted. Bilateral mild wheezing, fine crackles and mild dullness noted. CHEST: Palpation of the chest wall shows no significant chest wall tenderness. No other significant abnormalities noted. HEART: [place] PIGMENT SUPPLIER, No PSH, 1/6 JEIMY aortic area, 1/6 alfar[place] systolic murmur mitral area, no rubs, no gallops. ABDOMEN: Soft, no significant tenderness appreciated, normoactive bowel sounds. No guarding, no rebound. No rigidity noted . No masses appreciated. EXTREMITIES: Pedal pulses are 1-2+, no calf tenderness noted. No clubbing or cyanosis.2+ pedal edema noted NEUROLOGICAL: Focused neurological exam showed no significant neurologic deficit. Normal speech, no focal weakness appreciated. PSYCH: Normal mood, normal affect. Judgment and insight within normal limits. SKIN: No significant ecchymosis, rash, ulcerations or signs of pruritus noted. MUSCULOSKELETAL EXAM: No significant joint swelling noted. Results Laboratory Results: 10/09/16 06:05 10/09/16 06:05 10/09/16 10/09/16 10/09/16 06:05 06:05 06:05 WBC 6.1 RBC 2.95 L Hgb 8.0 L Hct 23.8 L MCV 81 MCH 27.3 MCHC 33.8 RDW 19.7 H Plt Count 105 L Seg Neutrophils % Not Reportable Lymphocytes % Not Reportable Monocytes % Not Reportable Eosinophils % Not Reportable Basophils % Not Reportable Absolute Neutrophils Not Reportable Absolute Lymphocytes Not Reportable Absolute Monocytes Not Reportable Absolute Eosinophils Not Reportable Absolute Basophils Not Reportable Sodium 144.2 Potassium 3.9 Chloride 97 L Carbon Dioxide 39 H Anion Gap 8 BUN 35 H Creatinine 1.68 H Est GFR ( Amer) 48 L Est GFR (Non-Af Amer) 40 L Glucose 189 H Calcium 8.7 Magnesium 1.9 TSH 1.39 Free T4 1.26 Free T3 pg/mL 2.18 L 10/04/16 10/04/16 10/04/16 04:30 06:25 11:25 Creatine Kinase 43 L 37 L CK-MB (CK-2) 2.68 Troponin I 0.069 NT-Pro-B Natriuret Pep 10/04/16 10/04/16 10/04/16 11:25 18:25 18:25 Creatine Kinase 47 L CK-MB (CK-2) 2.53 3.51 Troponin I 0.065 0.067 NT-Pro-B Natriuret Pep 10/05/16 10/07/16 09:00 05:25 Creatine Kinase CK-MB (CK-2) Troponin I 0.077 NT-Pro-B Natriuret Pep 48643 H Impressions: Chest X-Ray 10/07/16 08:00 IMPRESSION: Stable chest, diffuse pulmonary parenchymal opacities bilaterally. PICC line remains in place. Assessment & Plan - Diagnosis (1) Acute on chronic diastolic (congestive) heart failure Is this a current diagnosis for this admission?: Yes (2) Respiratory failure Qualifiers: Chronicity: acute on chronic Respiratory failure complication: hypoxia and hypercapnia Qualified Code(s): J96.21 - Acute and chronic respiratory failure with hypoxia Is this a current diagnosis for this admission?: Yes (3) Hypertension Qualifiers: Hypertension type: essential hypertension Qualified Code(s): I10 - Essential (primary) hypertension Is this a current diagnosis for this admission?: Yes (4) Atrial fibrillation Qualifiers: Atrial fibrillation type: chronic Qualified Code(s): I48.2 - Chronic atrial fibrillation Is this a current diagnosis for this admission?: Yes (5) COPD (chronic obstructive pulmonary disease) Qualifiers: COPD type: unspecified COPD Qualified Code(s): J44.9 - Chronic obstructive pulmonary disease, unspecified Is this a current diagnosis for this admission?: Yes (6) Chronic kidney disease (CKD) Qualifiers: Chronic kidney disease stage: stage 4 (severe) Qualified Code(s): N18.4 - Chronic kidney disease, stage 4 (severe) Is this a current diagnosis for this admission?: Yes (7) Obstructive sleep apnea Is this a current diagnosis for this admission?: Yes (8) Thrombocytopenia Is this a current diagnosis for this admission?: Yes (9) Anemia due to acute blood loss Is this a current diagnosis for this admission?: Yes - Notes Notes: Patient continues to be significantly short of breath and seems to continue with respiratory failure. Dr. Patel was at bedside when I saw the patient. It seems patient should continue with diuretic therapy. He should continue with nonspecific positive pressure ventilation. As regards atrial fibrillation , his heart rate seems reasonably well controlled. Other labs were reviewed and they were noted to be stable. Will continue to follow patient closely. Patient is critically ill. Patient would need very close observation. Potential for needing intubation. - Time Time with patient: Greater than 35 minutes Medications reviewed and adjusted accordingly: Yes
[2016-10-09] MEDS: DOXAZOSIN MESYLATE 4 MG TABLET PO SCH (22:39)
[2016-10-09] MEDS: METOPROLOL SUCCINATE 50 MG TAB.SR.24H PO SCH (22:39)
[2016-10-09] MEDS ORDERED: IMIPENEM/CILASTATIN SODIUM INJ 500 MG VIAL IV ONE (23:12)
[2016-10-10] MEDS: IMIPENEM/CILASTATIN SODIUM 500 MG in NORMAL SALINE 100 ML IV SCH ×4 (00:09→22:02)
[2016-10-10 06:28] LABS: HEMATOCRIT 24.8 % (37.9-51.0); HEMOGLOBIN 8.4 g/dL (13.5-17.0); HGB HCT DIFFERENCE 0.4; MEAN CORPUSCULAR HEMOGLOBIN 27.3 pg (27.0-33.4); MEAN CORPUSCULAR HGB CONC 33.8 g/dL (32.0-36.0); MEAN CORPUSCULAR VOLUME 81 fl (80-97); RED BLOOD COUNT 3.07 10^6/uL (4.35-5.55); RED CELL DISTRIBUTION WIDTH 19.4 % (11.5-14.0)
[2016-10-10 06:29] LABS: BLOOD UREA NITROGEN 29 mg/dL (7-20); CALCIUM 8.9 mg/dL (8.4-10.2); CHLORIDE 92 mmol/L (98-107); CREATININE RESULT 1.59 mg/dL (0.52-1.25); GLUCOSE 103 mg/dL (75-110); MAGNESIUM 1.9 mg/dL (1.6-2.3); POTASSIUM 3.5 mmol/L (3.6-5.0); SODIUM 145.1 mmol/L (137-145)
[2016-10-10] MEDS ORDERED: IMIPENEM/CILASTATIN SODIUM INJ 500 MG VIAL IV ONE (06:33)
[2016-10-10 06:42] LABS: ANION GAP 8 (5-19)
[2016-10-10 06:43] LABS: CARBON DIOXIDE 45 mmol/L (22-30)
[2016-10-10 06:59] LABS: BASOPHILS % (MANUAL) 0 % (0-2); EOSINOPHILS % (MANUAL) 0 % (0-6); LYMPHOCYTES % (MANUAL) 18 % (13-45); TOTAL CELLS COUNTED 100
[2016-10-10 07:02] LABS: ANISOCYTOSIS 2+; OVALOCYTES 1+; POIKILOCYTOSIS 1+; POLYCHROMASIA 1+
[2016-10-10] MEDS: HYDRALAZINE HCL 50 MG TABLET PO SCH ×3 (08:17→22:03)
--- NOTE | 2016-10-10 09:16 | PDOC PROGRESS REPORT ---
Subjective Progress Note for:: 10/09/16 Subjective:: I received a call from pulmonology stating that the patient was breathing 40 times a minute and needed transfer to the ICU for likely impending intubation. When I arrived to the floor the patient was sitting on the side of the bed breathing more easily and eating breakfast. He was seen in conjunction with pulmonology at the bedside. Patient stated that he did not want to be moved to the ICU because she wanted to stay here with the nursing staff on this floor. He was spoken to by the pulmonology service, me and also by the nursing staff here. Ultimately he was convinced to be transferred down to the ICU. The concern is that he has required nearly continuous bilevel Pap with extremely high IPAP over EPAP and increased work of breathing despite efforts to reduce work. Referral to the ICU is still recommended for this reason. Now that the patient is sitting up in bed he states that he feels much better Physical Exam Vital Signs: Temp Pulse Resp BP Pulse Ox 97.8 F 61 26 H 149/67 H 92 10/09/16 07:40 10/09/16 08:05 10/09/16 08:05 10/09/16 07:40 10/09/16 08:05 Intake & Output 10/08/16 10/09/16 10/10/16 06:59 06:59 06:59 Intake Total 7 1996 Output Total 6375 2867 Balance -9882 -3899 Weight 133.6 kg 129.7 kg PHYSICAL EXAM: GENERAL: This is a well-developed well-nourished morbidly obese - [place] male resting on the side of the bed currently in no acute distress. HEART: Regular rate and rhythm. 2/6 systolic ejection murmur No rubs or gallops. LUNGS: Diminished at bases bilaterally. Occasional crackles auscultated With equal rise and fall of the chest. ABDOMEN: Soft, nontender, nondistended obese with normoactive bowel sounds EXTREMITIES: No clubbing cyanosis. 4+ pitting edema. Pulses difficult to palpate. NEURO: Awake, alert, oriented 3. Cranial nerves II through XII grossly intact. SKIN: Brawny textured skin with peripheral vascular changes of the lower extremities PSYCH: Normal affect. Results Laboratory Results: 10/09/16 06:05 10/09/16 06:05 10/09/16 10/09/1617 06:05 06:05 06:05 WBC 6.1 RBC 2.95 L Hgb 8.0 L Hct 23.8 L MCV 81 MCH 27.3 MCHC 33.8 RDW 19.7 H Plt Count 105 L Seg Neutrophils % Not Reportable Lymphocytes % Not Reportable Monocytes % Not Reportable Eosinophils % Not Reportable Basophils % Not Reportable Absolute Neutrophils Not Reportable Absolute Lymphocytes Not Reportable Absolute Monocytes Not Reportable Absolute Eosinophils Not Reportable Absolute Basophils Not Reportable Sodium 144.2 Potassium 3.9 Chloride 97 L Carbon Dioxide 39 H Anion Gap 8 BUN 35 H Creatinine 1.68 H Est GFR ( Amer) 48 L Est GFR (Non-Af Amer) 40 L Glucose 189 H Calcium 8.7 Magnesium 1.9 TSH 1.39 Free T4 1.26 Free T3 pg/mL 2.18 L 10/04/16 10/04/16 10/04/16 04:30 06:25 11:25 Creatine Kinase 43 L 37 L CK-MB (CK-2) 2.68 Troponin I 0.069 NT-Pro-B Natriuret Pep 10/04/16 10/04/16 10/04/16 11:25 18:25 18:25 Creatine Kinase 47 L CK-MB (CK-2) 2.53 3.51 Troponin I 0.065 0.067 NT-Pro-B Natriuret Pep 10/05/16 10/07/16 09:00 05:25 Creatine Kinase CK-MB (CK-2) Troponin I 0.077 NT-Pro-B Natriuret Pep 39084 H Impressions: Chest X-Ray 10/07/16 08:00 IMPRESSION: Stable chest, diffuse pulmonary parenchymal opacities bilaterally. PICC line remains in place. Assessment & Plan - Diagnosis (1) Acute and chronic respiratory failure ([id number]) Plan: Acute on chronic respiratory failure secondary to multifactorial etiologies. These include acute on chronic diastolic heart failure, acute on chronic kidney disease stage IV, acute anemia blood loss, obesity with hypoventilation syndrome , and COPD. Management as below. Continue bilevel Pap as needed for now. Patient is currently on 6 L by nasal cannula at the bedside. We'll ask respiratory to supply high flow nasal cannula so that we could deliver greater amounts of oxygen and try and keep him off of BiPAP if possible. I do agree however, that despite these efforts he may in fact need to be intubated as the day goes on. Pulmonology is following. (2) Acute on chronic diastolic (congestive) heart failure Is this a current diagnosis for this admission?: YesPlan: Continue diuresis with Lasix drip. Continue to follow I's and O's. Continue fluid restriction. Most recent echocardiogram done in June of this year shows a normal EF with diastolic dysfunction and pulmonary hypertension considered to be moderate. Continue hydralazine, metoprolol, isosorbide mononitrate, and metolazone. Cardiology is following (3) Acute on chronic renal failure Plan: Acute on chronic renal failure stage IV. We'll of course have to be cautious with the Lasix drip. We'll continue to follow. Largely stable. (4) Lower GI bleed Is this a current diagnosis for this admission?: YesPlan: Patient is status post upper endoscopy last week was which was considered to be normal. GI has signed off. No plans for colonoscopy at this point unless the patient has a profuse bleeding. This decision was made secondary to his respiratory status. Continue to monitor. (5) Anemia requiring transfusions Is this a current diagnosis for this admission?: YesPlan: Anemia of acute blood loss. Status post transfusions. H&H currently stable. Hematology oncology has signed off. (6) Obesity Qualifiers: Obesity severity: morbid Is this a current diagnosis for this admission?: YesPlan: Weight loss through dietary changes. (7) Thrombocytopenia Is this a current diagnosis for this admission?: YesPlan: Platelets stable. Likely drug-induced thrombocytopenia from use of a nasal lid. Hematology oncology has signed off. 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 Continue wound VAC. Continue wound care (9) Type 2 diabetes mellitus with hyperglycemia Qualifiers: Diabetes mellitus manager terminal insulin use: unspecified jail insulin use status Qualified Code(s): E11.65 - Type 2 diabetes mellitus with hyperglycemia Plan: Continue lispro (10) Atrial fibrillation Qualifiers: Atrial fibrillation type: chronic Qualified Code(s): I48.2 - Chronic atrial fibrillation Is this a current diagnosis for this admission?: YesPlan: Continue rate control with Cardizem and metoprolol. Cardiology following - Time Critical Time spent with patient: 35 or more minutes - Inpatient Certification Medical Necessity: Need Close Monitoring Due to Risk of Patient Decompensation
[2016-10-10 09:24] LABS: ARTERIAL BLOOD BASE EXCESS 19.8 mmol/L; ARTERIAL BLOOD O2 SATURATION 93.5 % (94-98)
--- NOTE | 2016-10-10 09:24 | PDOC PROGRESS REPORT ---
Subjective Progress Note for:: 10/10/16 Subjective:: This is a follow-up visit for acute on chronic respiratory failure with hypoxemia and hypercapnia. This morning when we see the patient the patient's BiPAP had disconnected from the machine. Other than not being able to breathe because of this the patient had no complaints. Once the tubing was reconnected and the patient took a few deep breaths he felt much better. He thinks that he is breathing quite well. He is hungry and ready for breakfast. He denies any chest pain. Physical Exam Vital Signs: Temp Pulse Resp BP Pulse Ox 97.1 F 66 25 H 164/71 H 96 10/10/16 08:00 10/10/16 08:00 10/10/16 08:04 10/10/16 08:00 10/10/16 08:04 Intake & Output 10/09/16 10/10/16 10/11/16 06:59 06:59 06:59 Intake Total 1997 780 Output Total 4700 2270 Balance -4343 -8930 Weight 129.7 kg 115.9 kg PHYSICAL EXAM: GENERAL: This is a well-developed well-nourished morbidly obese - [place] male resting on bilevel Pap in no acute distress. HEART: Irregular rate and rhythm. surveillance monitor shows a flutter at the moment. No murmurs rubs or gallops. LUNGS: Occasional crackles auscultated with equal rise and fall of the chest. Currently on bilevel Pap ABDOMEN: Soft, nontender, nondistended obese with normoactive bowel sounds EXTREMITIES: No clubbing cyanosis. Edema improved. His arms are much better. The skin is loose. 2+ Edema still in the lower extremities. But overall improved. peripheral pulses difficult to palpate. Wound VAC in place on the right lateral foot. NEURO: Awake, alert, oriented x3. Cranial nerves II through XII grossly intact. PSYCH: Normal affect. Results Laboratory Results: 10/10/16 05:40 10/10/16 05:40 10/10/16 10/10/16 05:40 05:40 WBC 6.0 RBC 3.07 L Hgb 8.4 L Hct 24.8 L MCV 81 MCH 27.3 MCHC 33.8 RDW 19.4 H Plt Count 137 L Seg Neutrophils % Not Reportable Lymphocytes % Not Reportable Monocytes % Not Reportable Eosinophils % Not Reportable Basophils % Not Reportable Absolute Neutrophils Not Reportable Absolute Lymphocytes Not Reportable Absolute Monocytes Not Reportable Absolute Eosinophils Not Reportable Absolute Basophils Not Reportable Sodium 145.1 H Potassium 3.5 L Chloride 92 L Carbon Dioxide 45 H* Anion Gap 8 BUN 29 H Creatinine 1.59 H Est GFR ( Amer) 51 L Est GFR (Non-Af Amer) 42 L Glucose 103 Calcium 8.9 Magnesium 1.9 10/04/16 10/04/16 10/04/16 04:30 06:25 11:25 Creatine Kinase 43 L 37 L CK-MB (CK-2) 2.68 Troponin I 0.069 NT-Pro-B Natriuret Pep 10/04/16 10/04/16 10/04/16 11:25 18:25 18:25 Creatine Kinase 47 L CK-MB (CK-2) 2.53 3.51 Troponin I 0.065 0.067 NT-Pro-B Natriuret Pep 10/05/16 10/07/16 10/10/16 09:00 05:25 06:15 Creatine Kinase CK-MB (CK-2) Troponin I 0.077 NT-Pro-B Natriuret Pep 09363 H 59842 H Assessment & Plan - Diagnosis (1) Acute and chronic respiratory failure ([id number]) Plan: Acute on chronic respiratory failure secondary to multifactorial etiologies. These include acute on chronic diastolic heart failure, acute on chronic kidney disease stage IV, acute anemia blood loss, obesity with hypoventilation syndrome , pulmonary hypertension and COPD. Management as below. Continue bilevel Pap as needed for now. Pulmonology is following. (2) Acute on chronic diastolic (congestive) heart failure Is this a current diagnosis for this admission?: YesPlan: Continue diuresis with Lasix drip. Continue to follow I's and O's. Continue fluid restriction. Most recent echocardiogram done in June of this year shows a normal EF with diastolic dysfunction and pulmonary hypertension considered to be moderate. Continue hydralazine, metoprolol, isosorbide mononitrate, and metolazone. Cardiology is following (3) Acute on chronic renal failure Plan: Acute on chronic renal failure stage IV. We'll of course have to be cautious with the Lasix drip. We'll continue to follow. Largely stable. (4) Lower GI bleed Is this a current diagnosis for this admission?: YesPlan: Patient is status post upper endoscopy last week was which was considered to be normal. GI has signed off. No plans for colonoscopy at this point unless the patient has a profuse bleeding. This decision was made secondary to his respiratory status. Continue to monitor. (5) Anemia requiring transfusions Is this a current diagnosis for this admission?: YesPlan: Anemia of acute blood loss. Status post transfusions. H&H currently stable. Hematology oncology has signed off. (6) Obesity Qualifiers: Obesity severity: morbid Is this a current diagnosis for this admission?: YesPlan: Weight loss through dietary changes. (7) Thrombocytopenia Is this a current diagnosis for this admission?: YesPlan: Platelets stable. Likely drug-induced thrombocytopenia from use of a nasal lid. Hematology oncology has signed off. 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 Continue wound VAC. Continue wound care (9) Type 2 diabetes mellitus with hyperglycemia Qualifiers: Diabetes mellitus marine oil terminal superintendent insulin use: unspecified marine oil terminal superintendent insulin use status Qualified Code(s): E11.65 - Type 2 diabetes mellitus with hyperglycemia Plan: Continue lispro (10) Atrial fibrillation Qualifiers: Atrial fibrillation type: chronic Qualified Code(s): I48.2 - Chronic atrial fibrillation Is this a current diagnosis for this admission?: YesPlan: Continue rate control with Cardizem and metoprolol. Cardiology following - Time Critical Time spent with patient: 25-34 minutes - Inpatient Certification Medical Necessity: Need Close Monitoring Due to Risk of Patient Decompensation - For now the patient will remain in ICU level care. We will hopefully transition him back to [facility] located by tomorrow. However if any emergencies come in he should be considered first 2 L the ICU today
[2016-10-10] MEDS: TIOTROPIUM BROMIDE DPI 5 CAP/KIT (18 MCG/CAP) IH SCH (10:16)
[2016-10-10] MEDS: ISOSORBIDE MONONITRATE 30 MG TAB.ER.24H PO SCH (10:17)
[2016-10-10] MEDS: METOLAZONE 2.5 MG TABLET PO SCH ×2 (10:17→17:12)
[2016-10-10] MEDS: CALCIUM CARBONATE 500 MG TAB.CHEW PO SCH (10:18)
[2016-10-10] MEDS: FERROUS SULFATE 325 MG TABLET PO SCH ×2 (10:19→17:12)
[2016-10-10] MEDS: INSULIN GLARGINE,HUM.REC.ANLOG 300 UNIT/3 ML INSULN.PEN SUBCUT SCH ×2 (10:19→22:04)
[2016-10-10] MEDS: DILTIAZEM HCL 120 MG CAP.SR.24H PO SCH ×2 (10:19→22:02)
[2016-10-10] MEDS: DOCUSATE SODIUM 100 MG CAPSULE PO SCH ×2 (10:19→17:12)
[2016-10-10] MEDS: FOLIC ACID/VITAMIN B COMP W-C CAPSULE PO SCH (10:19)
[2016-10-10] MEDS: DAPTOMYCIN 500 MG in NORMAL SALINE 50 ML IV SCH (10:46)
--- NOTE | 2016-10-10 12:47 | PDOC PROGRESS REPORT ---
Subjective Progress Note for:: 10/10/16 Subjective:: Patient seen this morning. He was noted to be somewhat better but still very short of breath on minimal exertion. Patient was moved to the unit for closer observation as it was felt that he may need endotracheal intubation. Currently on BiPAP therapy. Pt is denying any chest arm or neck discomfort. Patient denying any PND, orthopnea. Patient denied any sustained palpitations, dizziness, syncope, near syncope. Patient denying any fever chills. Patient denying any other significant discomfort. Patient is maintaining atrial fibrillation. Rate is well controlled. Occasional VPCs are noted. Review of systems: Rest review of systems negative. Medications: Medications have been reviewed. Physical Exam Vital Signs: Temp Pulse Resp BP Pulse Ox 97.1 F 62 22 H 145/56 H 99 10/10/16 08:00 10/10/16 10:00 10/10/16 12:00 10/10/16 10:00 10/10/16 12:00 Intake & Output 10/09/16 10/10/16 10/11/16 06:59 06:59 06:59 Intake Total 1997 780 Output Total 4700 5350 400 Balance -2703 -4570 -400 Weight 129.7 kg 115.9 kg Exam: GENERAL: well-nourished and in no acute distress. Alert and oriented x3 HEAD: Atraumatic, normocephalic. EYES: Pupils equal round and reactive to light, extraocular movements intact, sclera anicteric, conjunctiva are normal. ENT: TMs normal, nares patent, oropharynx clear without exudates. Moist mucous membranes. No oral ulcerations or bleeding gums noted NECK: supple without lymphadenopathy. Trachea is central. No cervical or axillary lymphadenopathy noted. Carotids are 2+, JVD DIFFICULT TO ASSESS TODAY. LUNGS: Respiration seems nonlabored, no significant accessory muscle action noted. Bibasilar crackles and mild wheezing noted. CHEST: Palpation of the chest wall shows no significant chest wall tenderness. No other significant abnormalities noted. HEART: [place] [employer], No PSH, 1/6 JEIMY aortic area, 1/6 alfaro systolic murmur mitral area, no rubs, no gallops. ABDOMEN: Soft, no significant tenderness appreciated, normoactive bowel sounds. No guarding, no rebound. No rigidity noted . No masses appreciated. EXTREMITIES: Pedal pulses are 1-2+, no calf tenderness noted. No clubbing or cyanosis.1-2 + pedal edema noted. This is significantly improved NEUROLOGICAL: Focused neurological exam showed no significant neurologic deficit. Normal speech, no focal weakness appreciated. PSYCH: Normal mood, normal affect. Judgment and insight within normal limits. SKIN: No significant ecchymosis, rash, ulcerations or signs of pruritus noted. MUSCULOSKELETAL EXAM: No significant joint swelling noted. Results Laboratory Results: 10/10/16 05:40 10/10/16 05:40 10/10/16 10/10/16 10/10/16 05:40 05:40 08:57 WBC 6.0 RBC 3.07 L Hgb 8.4 L Hct 24.8 L MCV 81 MCH 27.3 MCHC 33.8 RDW 19.4 H Plt Count 137 L Seg Neutrophils % Not Reportable Lymphocytes % Not Reportable Monocytes % Not Reportable Eosinophils % Not Reportable Basophils % Not Reportable Absolute Neutrophils Not Reportable Absolute Lymphocytes Not Reportable Absolute Monocytes Not Reportable Absolute Eosinophils Not Reportable Absolute Basophils Not Reportable Carbonic Acid 1.87 H HCO3/H2CO3 Ratio 24:1 ABG pH 7.49 H ABG pCO2 62.1 H ABG pO2 65.4 L ABG HCO3 45.7 H ABG O2 Saturation 93.5 L ABG Base Excess 19.8 FiO2 30% Sodium 145.1 H Potassium 3.5 L Chloride 92 L Carbon Dioxide 45 H* Anion Gap 8 BUN 29 H Creatinine 1.59 H Est GFR ( Amer) 51 L Est GFR (Non-Af Amer) 42 L Glucose 103 Calcium 8.9 Magnesium 1.9 10/04/16 10/04/16 10/04/16 04:30 06:25 11:25 Creatine Kinase 43 L 37 L CK-MB (CK-2) 2.68 Troponin I 0.069 NT-Pro-B Natriuret Pep 10/04/16 10/04/16 10/04/16 11:25 18:25 18:25 Creatine Kinase 47 L CK-MB (CK-2) 2.53 3.51 Troponin I 0.065 0.067 NT-Pro-B Natriuret Pep 10/05/16 10/07/16 10/10/16 09:00 05:25 06:15 Creatine Kinase CK-MB (CK-2) Troponin I 0.077 NT-Pro-B Natriuret Pep 66413 H 90153 H Impressions: Chest X-Ray 10/10/16 06:00 IMPRESSION: Diffuse bilateral alveolar and interstitial infiltrates unchanged from 10/07/2016 Assessment & Plan - Diagnosis (1) Acute on chronic diastolic (congestive) heart failure Is this a current diagnosis for this admission?: Yes (2) Respiratory failure Qualifiers: Chronicity: acute on chronic Respiratory failure complication: hypoxia and hypercapnia Qualified Code(s): J96.21 - Acute and chronic respiratory failure with hypoxia Is this a current diagnosis for this admission?: Yes (3) Hypertension Qualifiers: Hypertension type: essential hypertension Qualified Code(s): I10 - Essential (primary) hypertension Is this a current diagnosis for this admission?: Yes (4) Atrial fibrillation Qualifiers: Atrial fibrillation type: chronic Qualified Code(s): I48.2 - Chronic atrial fibrillation Is this a current diagnosis for this admission?: Yes (5) COPD (chronic obstructive pulmonary disease) Qualifiers: COPD type: unspecified COPD Qualified Code(s): J44.9 - Chronic obstructive pulmonary disease, unspecified Is this a current diagnosis for this admission?: Yes (6) Chronic kidney disease (CKD) Qualifiers: Chronic kidney disease stage: stage 4 (severe) Qualified Code(s): N18.4 - Chronic kidney disease, stage 4 (severe) Is this a current diagnosis for this admission?: Yes (7) Obstructive sleep apnea Is this a current diagnosis for this admission?: Yes (8) Thrombocytopenia Is this a current diagnosis for this admission?: Yes (9) Anemia due to acute blood loss Is this a current diagnosis for this admission?: Yes - Notes Notes: Patient remains critically ill with predominantly respiratory failure and also some congestive heart failure. Patient has shown the expected improvement with excessive diuresis. Will therefore order a 2-D echocardiogram. Patient lab works were reviewed. They remains stable. Patient has elevated CO2 in chemistry panel therefore he could be significantly retaining carbon dioxide. Generally overall prognosis seems to be on the poor side because of underlying severe COPD. As regards atrial fibrillation, patient currently on just rate control. Patient has history of significant anemia and history of blood loss. Also patient's arterial blood gas review shows progressive increase in CO2 level. Will continue to follow patient. - Time Time with patient: Greater than 35 minutes - CODE STATUS was discussed, patient remains full code. Surrogate decision-maker unchanged. Multiple medical problems were addressed.More than 50% of the time spent coordinating care, discussing management plans with involved caregivers. Management plans discussed with involved personnels. Medical decision making was of moderate to high complexity, patient's has multiple severe comorbidities. Medications reviewed and adjusted accordingly: Yes
[2016-10-10] MEDS: NORMAL SALINE 250 ML with FUROSEMIDE 250 MG IV PRN ×2 (17:11)
[2016-10-10] MEDS: PHARMACY COMMUNICATION ORDER MC SCH (18:23)
[2016-10-10 20:42] LABS: HEMATOCRIT 25.1 % (37.9-51.0); HEMOGLOBIN 8.3 g/dL (13.5-17.0); HGB HCT DIFFERENCE -0.2; MEAN CORPUSCULAR HEMOGLOBIN 26.9 pg (27.0-33.4); MEAN CORPUSCULAR VOLUME 82 fl (80-97); RED BLOOD COUNT 3.08 10^6/uL (4.35-5.55); RED CELL DISTRIBUTION WIDTH 20.2 % (11.5-14.0)
[2016-10-10 20:46] LABS: BLOOD UREA NITROGEN 28 mg/dL (7-20); CHLORIDE 90 mmol/L (98-107); CREATININE RESULT 1.51 mg/dL (0.52-1.25); GLUCOSE 161 mg/dL (75-110); MAGNESIUM 1.9 mg/dL (1.6-2.3); POTASSIUM 3.8 mmol/L (3.6-5.0); SODIUM 142.2 mmol/L (137-145)
[2016-10-10 20:54] LABS: ANION GAP 5 (5-19)
[2016-10-10 20:56] LABS: CARBON DIOXIDE 47 mmol/L (22-30)
[2016-10-10 20:57] LABS: BAND NEUTROPHILS % (MANUAL) 2 % (3-5); BASOPHILS % (MANUAL) 0 % (0-2); EOSINOPHILS % (MANUAL) 2 % (0-6); LYMPHOCYTES % (MANUAL) 15 % (13-45); TOTAL CELLS COUNTED 100
[2016-10-10 20:58] LABS: ANISOCYTOSIS 2+; HYPOCHROMASIA SLIGHT; TOXIC GRANULATION SLIGHT
[2016-10-10] MEDS ORDERED: POTASSI CL 20 MEQ/50 ML RIDER 20 MEQ/50 ML RTUPB IV ONE (22:00)
[2016-10-10] MEDS: DOXAZOSIN MESYLATE 4 MG TABLET PO SCH (22:03)
[2016-10-10] MEDS: METOPROLOL SUCCINATE 50 MG TAB.SR.24H PO SCH (22:03)
[2016-10-11 04:14] LABS: APPEARANCE,URINE SLIGHTLY-CLOUDY; BILIRUBIN,URINE NEGATIVE (NEGATIVE); GLUCOSE, URINE NEGATIVE (NEGATIVE); KETONES,URINE NEGATIVE (NEGATIVE); LEUKOCYTE ESTERASE,URINE LARGE (NEGATIVE); NITRITE,URINE NEGATIVE (NEGATIVE); PROTEIN,URINE NEGATIVE (NEGATIVE); URINE SPECIFIC GRAVITY 1.005; UROBILINOGEN,URINE NEGATIVE mg/dL (<2.0)
[2016-10-11] MEDS: IMIPENEM/CILASTATIN SODIUM 500 MG in NORMAL SALINE 100 ML IV SCH ×3 (05:58→21:53)
[2016-10-11] MEDS: HYDRALAZINE HCL 50 MG TABLET PO SCH ×3 (06:00→21:52)
[2016-10-11 06:18] LABS: HEMATOCRIT 26.3 % (37.9-51.0); HEMOGLOBIN 8.7 g/dL (13.5-17.0); HGB HCT DIFFERENCE -0.2; MEAN CORPUSCULAR HEMOGLOBIN 27.1 pg (27.0-33.4); MEAN CORPUSCULAR HGB CONC 33.2 g/dL (32.0-36.0); MEAN CORPUSCULAR VOLUME 82 fl (80-97); RED BLOOD COUNT 3.21 10^6/uL (4.35-5.55); RED CELL DISTRIBUTION WIDTH 20.3 % (11.5-14.0); WHITE BLOOD COUNT 6.1 10^3/uL (4.0-10.5)
[2016-10-11 06:29] LABS: ARTERIAL BLOOD BASE EXCESS 19.8 mmol/L
[2016-10-11 06:39] LABS: ALANINE AMINOTRANSFERASE 41 U/L (21-72); ALBUMIN 3.1 g/dL (3.5-5.0); ALKALINE PHOSPHATASE 73 U/L (38-126); ASPARTATE AMINO TRANSFERASE 41 U/L (17-59); BILIRUBIN,DIRECT 0.4 mg/dL (0.0-0.4); BILIRUBIN,TOTAL 0.8 mg/dL (0.2-1.3); BLOOD UREA NITROGEN 29 mg/dL (7-20); CALCIUM 9.1 mg/dL (8.4-10.2); CHLORIDE 87 mmol/L (98-107); CREATININE RESULT 1.55 mg/dL (0.52-1.25); GLUCOSE 216 mg/dL (75-110); MAGNESIUM 1.9 mg/dL (1.6-2.3); PHOSPHORUS 4.6 mg/dL (2.5-4.5); POTASSIUM 3.9 mmol/L (3.6-5.0); SODIUM 142.1 mmol/L (137-145); TOTAL PROTEIN 6.3 g/dL (6.3-8.2)
[2016-10-11 06:43] LABS: BASOPHILS % (MANUAL) 0 % (0-2); EOSINOPHILS % (MANUAL) 2 % (0-6); LYMPHOCYTES % (MANUAL) 11 % (13-45); TOTAL CELLS COUNTED 100
[2016-10-11 06:44] LABS: ANION GAP 7 (5-19)
[2016-10-11 06:46] LABS: CARBON DIOXIDE 48 mmol/L (22-30)
[2016-10-11 06:47] LABS: ANISOCYTOSIS 2+; HYPOCHROMASIA SLIGHT; OVALOCYTES SLIGHT; POIKILOCYTOSIS SLIGHT; POLYCHROMASIA SLIGHT
--- NOTE | 2016-10-11 09:24 | PDOC PROGRESS REPORT ---
Subjective Progress Note for:: 10/11/16 Subjective:: This is a follow-up visit for acute on chronic respiratory failure with hypoxemia and hypercapnia. This morning when we see the patient the patient's BiPAP. Patient complains of burning with the Daniels catheter in place. Urinalysis was done for this and does show large leukocyte esterase. Patient feels that his breathing is essentially the same. There is was a questionable 59 beats of V. tach last night. Physical Exam Vital Signs: Temp Pulse Resp BP Pulse Ox 98.1 F 62 22 H 141/59 H 96 10/11/16 08:00 10/11/16 08:00 10/11/16 08:00 10/11/16 08:00 10/11/16 08:00 Intake & Output 10/10/16 10/11/16 10/12/16 06:59 06:59 06:59 Intake Total 780 950 Output Total 5354 7539 500 Balance -4570 -6615 -500 Weight 115.9 kg 106.4 kg PHYSICAL EXAM: GENERAL: This is a well-developed well-nourished morbidly obese - [place] male resting on bilevel Pap in no acute distress. HEART: Irregular rate and rhythm. quality assurance monitor shows a flutter at the moment. No murmurs rubs or gallops. LUNGS: Left lower lobe crackles auscultated with equal rise and fall of the chest. Currently on bilevel Pap ABDOMEN: Soft, nontender, nondistended obese with normoactive bowel sounds EXTREMITIES: No clubbing cyanosis. Edema much improved. It seems to have resolved and his arms. The skin is loose. 1+ Edema now in the lower extremities. But overall improved. peripheral pulses difficult to palpate. Wound VAC in place on the right lateral foot. NEURO: Awake, alert, oriented x3. Cranial nerves II through XII grossly intact. PSYCH: Normal affect. Results Laboratory Results: 10/11/16 06:05 10/11/16 06:05 10/10/16 10/10/16 10/10/16 08:57 20:24 20:24 WBC 6.0 RBC 3.08 L Hgb 8.3 L Hct 25.1 L MCV 82 MCH 26.9 L MCHC 33.0 RDW 20.2 H Plt Count 152 Seg Neutrophils % Not Reportable Lymphocytes % Not Reportable Monocytes % Not Reportable Eosinophils % Not Reportable Basophils % Not Reportable Absolute Neutrophils Not Reportable Absolute Lymphocytes Not Reportable Absolute Monocytes Not Reportable Absolute Eosinophils Not Reportable Absolute Basophils Not Reportable Carbonic Acid 1.87 H HCO3/H2CO3 Ratio 24:1 ABG pH 7.49 H ABG pCO2 62.1 H ABG pO2 65.4 L ABG HCO3 45.7 H ABG O2 Saturation 93.5 L ABG Base Excess 19.8 FiO2 30% Sodium 142.2 Potassium 3.8 Chloride 90 L Carbon Dioxide 47 H* Anion Gap 5 BUN 28 H Creatinine 1.51 H Est GFR ( Amer) 54 L Est GFR (Non-Af Amer) 45 L Glucose 161 H Calcium 9.0 Phosphorus Magnesium 1.9 Total Bilirubin AST ALT Alkaline Phosphatase Total Protein Albumin TSH Urine Color Urine Appearance Urine pH Ur Specific [place] Urine Protein Urine Glucose (UA) Urine Ketones Urine Blood Urine Nitrite Ur Leukocyte Esterase Urine WBC (Auto) Urine RBC (Auto) 10/10/16 10/11/16 10/11/16 20:24 03:30 06:05 WBC 6.1 RBC 3.21 L Hgb 8.7 L Hct 26.3 L MCV 82 MCH 27.1 MCHC 33.2 RDW 20.3 H Plt Count 163 Seg Neutrophils % Not Reportable Lymphocytes % Not Reportable Monocytes % Not Reportable Eosinophils % Not Reportable Basophils % Not Reportable Absolute Neutrophils Not Reportable Absolute Lymphocytes Not Reportable Absolute Monocytes Not Reportable Absolute Eosinophils Not Reportable Absolute Basophils Not Reportable Carbonic Acid HCO3/H2CO3 Ratio ABG pH ABG pCO2 ABG pO2 ABG HCO3 ABG O2 Saturation ABG Base Excess FiO2 Sodium Potassium Chloride Carbon Dioxide Anion Gap BUN Creatinine Est GFR ( Amer) Est GFR (Non-Af Amer) Glucose Calcium Phosphorus Magnesium Total Bilirubin AST ALT Alkaline Phosphatase Total Protein Albumin TSH Cancelled Urine Color STRAW Urine Appearance SLIGHTLY-CLOUDY Urine pH 9.0 Ur Specific [place] 1.005 Urine Protein NEGATIVE Urine Glucose (UA) NEGATIVE Urine Ketones NEGATIVE Urine Blood NEGATIVE Urine Nitrite NEGATIVE Ur Leukocyte Esterase LARGE H Urine WBC (Auto) 33 Urine RBC (Auto) 7 10/11/16 10/11/16 06:05 06:20 WBC RBC Hgb Hct MCV MCH MCHC RDW Plt Count Seg Neutrophils % Lymphocytes % Monocytes % Eosinophils % Basophils % Absolute Neutrophils Absolute Lymphocytes Absolute Monocytes Absolute Eosinophils Absolute Basophils Carbonic Acid 1.75 H HCO3/H2CO3 Ratio 26:1 ABG pH 7.51 H ABG pCO2 58.3 H ABG pO2 85.5 ABG HCO3 45.5 H ABG O2 Saturation 97.0 ABG Base Excess 19.8 FiO2 30% Sodium 142.1 Potassium 3.9 Chloride 87 L Carbon Dioxide 48 H* Anion Gap 7 BUN 29 H Creatinine 1.55 H Est GFR ( Amer) 53 L Est GFR (Non-Af Amer) 43 L Glucose 216 H Calcium 9.1 Phosphorus 4.6 H Magnesium 1.9 Total Bilirubin 0.8 AST 41 ALT 41 Alkaline Phosphatase 73 Total Protein 6.3 Albumin 3.1 L TSH Urine Color Urine Appearance Urine pH Ur Specific [place] Urine Protein Urine Glucose (UA) Urine Ketones Urine Blood Urine Nitrite Ur Leukocyte Esterase Urine WBC (Auto) Urine RBC (Auto) 10/04/16 10/04/16 10/04/16 04:30 06:25 11:25 Creatine Kinase 43 L 37 L CK-MB (CK-2) 2.68 Troponin I 0.069 NT-Pro-B Natriuret Pep 10/04/16 10/04/16 10/04/16 11:25 18:25 18:25 Creatine Kinase 47 L CK-MB (CK-2) 2.53 3.51 Troponin I 0.065 0.067 NT-Pro-B Natriuret Pep 10/05/16 10/07/16 10/10/16 09:00 05:25 06:15 Creatine Kinase CK-MB (CK-2) Troponin I 0.077 NT-Pro-B Natriuret Pep 52071 H 66271 H Impressions: Chest X-Ray 10/10/16 06:00 IMPRESSION: Diffuse bilateral alveolar and interstitial infiltrates unchanged from 10/07/2016 Assessment & Plan - Diagnosis (1) Acute and chronic respiratory failure ([id number]) Plan: Acute on chronic respiratory failure secondary to multifactorial etiologies. These include acute on chronic diastolic heart failure, acute on chronic kidney disease stage IV, acute anemia blood loss, obesity with hypoventilation syndrome , pulmonary hypertension and COPD. Management as below. Continue bilevel Pap as needed for now. Pulmonology is following. Discussed with pulmonology about taking the bilevel Pap often putting him on high flow nasal cannula. Will try this in the unit before sending him to [facility] [place] (2) Acute on chronic diastolic (congestive) heart failure Is this a current diagnosis for this admission?: Yes (3) Acute on chronic renal failure Plan: Acute on chronic renal failure stage IV. We'll of course have to be cautious with the Lasix drip. We'll continue to follow. Largely stable. (4) Lower GI bleed Plan: Patient is status post upper endoscopy last week was which was considered to be normal. GI has signed off. No plans for colonoscopy at this point unless the patient has a profuse bleeding. This decision was made secondary to his respiratory status. Continue to monitor. (5) Anemia requiring transfusions Plan: Anemia of acute blood loss. Status post transfusions. H&H currently stable. Hematology oncology has signed off. (6) Obesity Qualifiers: Obesity severity: morbid Plan: Weight loss through dietary changes. (7) Thrombocytopenia Plan: Platelets stable. Likely drug-induced thrombocytopenia from use of a nasal lid. Hematology oncology has signed off. 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 Continue wound VAC. Continue wound care. (9) Type 2 diabetes mellitus with hyperglycemia Qualifiers: Diabetes mellitus custodial insulin use: unspecified custodial insulin use status Qualified Code(s): E11.65 - Type 2 diabetes mellitus with hyperglycemia Plan: Continue lispro. Blood sugars are reasonable (10) Atrial fibrillation Qualifiers: Atrial fibrillation type: chronic Qualified Code(s): I48.2 - Chronic atrial fibrillation Plan: Continue rate control with Cardizem and metoprolol. Cardiology following. [facility] rhythm ships with Dr. LUCAS (11) UTI (urinary tract infection) Plan: Patient with dysuria. Large leukocyte esterase in the urine. Will give him Pyridium for now. And out on a urine culture. - Time Time Spent with patient: 25-34 minutes - Inpatient Certification Medical Necessity: Need Close Monitoring Due to Risk of Patient Decompensation - Patient may step down to [facility] [place] today
[2016-10-11] MEDS: FOLIC ACID/VITAMIN B COMP W-C CAPSULE PO SCH (11:00)
[2016-10-11] MEDS: INSULIN GLARGINE,HUM.REC.ANLOG 300 UNIT/3 ML INSULN.PEN SUBCUT SCH ×2 (11:00→21:50)
[2016-10-11] MEDS: FERROUS SULFATE 325 MG TABLET PO SCH ×2 (11:03→17:20)
[2016-10-11] MEDS: ISOSORBIDE MONONITRATE 30 MG TAB.ER.24H PO SCH (11:03)
[2016-10-11] MEDS: DILTIAZEM HCL 120 MG CAP.SR.24H PO SCH ×2 (11:04→21:52)
[2016-10-11] MEDS: CALCIUM CARBONATE 500 MG TAB.CHEW PO SCH (11:04)
[2016-10-11] MEDS: DOCUSATE SODIUM 100 MG CAPSULE PO SCH ×2 (11:05→17:20)
[2016-10-11] MEDS: METOLAZONE 2.5 MG TABLET PO SCH ×2 (11:05→17:20)
[2016-10-11] MEDS: TIOTROPIUM BROMIDE DPI 5 CAP/KIT (18 MCG/CAP) IH SCH (11:06)
[2016-10-11] MEDS: INSULIN LISPRO 100 UNIT/ML 3 ML VIAL SUBCUT PRN ×2 (11:07→17:30)
[2016-10-11] MEDS: DAPTOMYCIN 500 MG in NORMAL SALINE 50 ML IV SCH (11:07)
[2016-10-11] MEDS: PHENAZOPYRIDINE HCL 100 MG TABLET PO SCH ×2 (11:09→17:20)
[2016-10-11] MEDS: NORMAL SALINE 250 ML with FUROSEMIDE 250 MG IV PRN ×2 (17:19)
--- NOTE | 2016-10-11 20:36 | PDOC PROGRESS REPORT ---
Subjective Progress Note for:: 10/11/16 Subjective:: Patient seen this morning. He was noted to be somewhat better but still very short of breath on minimal exertion. Currently still in the unit. Currently on BiPAP therapy. Pt is denying any chest arm or neck discomfort. Patient denying any PND, orthopnea. Patient was noted to have episode of wide-complex irregular tachycardia. He was noted to be asymptomatic. Technically it was unsustained. It seems patient was maintaining atrial flutter and subsequently went into transient atrial fibrillation which caused his heart rate to increase and conduction with aberrancy. Cannot entirely rule out a ventricular tachyarrhythmia. Patient denying any fever chills. Patient denying any other significant discomfort. Patient is maintaining atrial fibrillation. Rate is well controlled. Occasional VPCs are noted. Review of systems: Rest review of systems negative. Medications: Medications have been reviewed. Physical Exam Vital Signs: Temp Pulse Resp BP Pulse Ox 99.1 F 64 24 H 120/46 L 99 10/11/16 12:00 10/11/16 12:00 10/11/16 13:00 10/11/16 12:48 10/11/16 13:00 Intake & Output 10/10/16 10/11/16 10/12/16 06:59 06:59 06:59 Intake Total 780 950 240 Output Total 3352 6991 1153 Balance -1564 -3258 -9565 Weight 115.9 kg 106.4 kg Results Laboratory Results: 10/11/16 06:05 10/11/16 06:05 10/10/16 10/10/16 10/10/16 20:24 20:24 20:24 WBC 6.0 RBC 3.08 L Hgb 8.3 L Hct 25.1 L MCV 82 MCH 26.9 L MCHC 33.0 RDW 20.2 H Plt Count 152 Seg Neutrophils % Not Reportable Lymphocytes % Not Reportable Monocytes % Not Reportable Eosinophils % Not Reportable Basophils % Not Reportable Absolute Neutrophils Not Reportable Absolute Lymphocytes Not Reportable Absolute Monocytes Not Reportable Absolute Eosinophils Not Reportable Absolute Basophils Not Reportable Carbonic Acid HCO3/H2CO3 Ratio ABG pH ABG pCO2 ABG pO2 ABG HCO3 ABG O2 Saturation ABG Base Excess FiO2 Sodium 142.2 Potassium 3.8 Chloride 90 L Carbon Dioxide 47 H* Anion Gap 5 BUN 28 H Creatinine 1.51 H Est GFR ( Amer) 54 L Est GFR (Non-Af Amer) 45 L Glucose 161 H Calcium 9.0 Phosphorus Magnesium 1.9 Total Bilirubin AST ALT Alkaline Phosphatase Total Protein Albumin Vitamin B12 TSH Cancelled Urine Color Urine Appearance Urine pH Ur Specific [place] Urine Protein Urine Glucose (UA) Urine Ketones Urine Blood Urine Nitrite Ur Leukocyte Esterase Urine WBC (Auto) Urine RBC (Auto) 10/11/16 10/11/16 10/11/16 03:30 06:05 06:05 WBC 6.1 RBC 3.21 L Hgb 8.7 L Hct 26.3 L MCV 82 MCH 27.1 MCHC 33.2 RDW 20.3 H Plt Count 163 Seg Neutrophils % Not Reportable Lymphocytes % Not Reportable Monocytes % Not Reportable Eosinophils % Not Reportable Basophils % Not Reportable Absolute Neutrophils Not Reportable Absolute Lymphocytes Not Reportable Absolute Monocytes Not Reportable Absolute Eosinophils Not Reportable Absolute Basophils Not Reportable Carbonic Acid HCO3/H2CO3 Ratio ABG pH ABG pCO2 ABG pO2 ABG HCO3 ABG O2 Saturation ABG Base Excess FiO2 Sodium 142.1 Potassium 3.9 Chloride 87 L Carbon Dioxide 48 H* Anion Gap 7 BUN 29 H Creatinine 1.55 H Est GFR ( Amer) 53 L Est GFR (Non-Af Amer) 43 L Glucose 216 H Calcium 9.1 Phosphorus 4.6 H Magnesium 1.9 Total Bilirubin 0.8 AST 41 ALT 41 Alkaline Phosphatase 73 Total Protein 6.3 Albumin 3.1 L Vitamin B12 TSH Urine Color STRAW Urine Appearance SLIGHTLY-CLOUDY Urine pH 9.0 Ur Specific [place] 1.005 Urine Protein NEGATIVE Urine Glucose (UA) NEGATIVE Urine Ketones NEGATIVE Urine Blood NEGATIVE Urine Nitrite NEGATIVE Ur Leukocyte Esterase LARGE H Urine WBC (Auto) 33 Urine RBC (Auto) 7 10/11/16 10/11/16 06:05 06:20 WBC RBC Hgb Hct MCV MCH MCHC RDW Plt Count Seg Neutrophils % Lymphocytes % Monocytes % Eosinophils % Basophils % Absolute Neutrophils Absolute Lymphocytes Absolute Monocytes Absolute Eosinophils Absolute Basophils Carbonic Acid 1.75 H HCO3/H2CO3 Ratio 26:1 ABG pH 7.51 H ABG pCO2 58.3 H ABG pO2 85.5 ABG HCO3 45.5 H ABG O2 Saturation 97.0 ABG Base Excess 19.8 FiO2 30% Sodium Potassium Chloride Carbon Dioxide Anion Gap BUN Creatinine Est GFR ( Amer) Est GFR (Non-Af Amer) Glucose Calcium Phosphorus Magnesium Total Bilirubin AST ALT Alkaline Phosphatase Total Protein Albumin Vitamin B12 966.0 H TSH Urine Color Urine Appearance Urine pH Ur Specific [place] Urine Protein Urine Glucose (UA) Urine Ketones Urine Blood Urine Nitrite Ur Leukocyte Esterase Urine WBC (Auto) Urine RBC (Auto) 10/04/16 10/04/16 10/04/16 04:30 06:25 11:25 Creatine Kinase 43 L 37 L CK-MB (CK-2) 2.68 Troponin I 0.069 NT-Pro-B Natriuret Pep 10/04/16 10/04/16 10/04/16 11:25 18:25 18:25 Creatine Kinase 47 L CK-MB (CK-2) 2.53 3.51 Troponin I 0.065 0.067 NT-Pro-B Natriuret Pep 10/05/16 10/07/16 10/10/16 09:00 05:25 06:15 Creatine Kinase CK-MB (CK-2) Troponin I 0.077 NT-Pro-B Natriuret Pep 08338 H 41412 H Impressions: Chest X-Ray 10/10/16 06:00 IMPRESSION: Diffuse bilateral alveolar and interstitial infiltrates unchanged from 10/07/2016 Assessment & Plan - Diagnosis (1) NSVT (nonsustained ventricular tachycardia) Is this a current diagnosis for this admission?: Yes (2) Wide-complex tachycardia Is this a current diagnosis for this admission?: Yes (3) Acute on chronic diastolic (congestive) heart failure Is this a current diagnosis for this admission?: Yes (4) Respiratory failure Qualifiers: Chronicity: acute on chronic Respiratory failure complication: hypoxia and hypercapnia Qualified Code(s): J96.21 - Acute and chronic respiratory failure with hypoxia Is this a current diagnosis for this admission?: Yes (5) Hypertension Qualifiers: Hypertension type: essential hypertension Qualified Code(s): I10 - Essential (primary) hypertension Is this a current diagnosis for this admission?: Yes (6) Atrial fibrillation Qualifiers: Atrial fibrillation type: chronic Qualified Code(s): I48.2 - Chronic atrial fibrillation Is this a current diagnosis for this admission?: Yes (7) COPD (chronic obstructive pulmonary disease) Qualifiers: COPD type: unspecified COPD Qualified Code(s): J44.9 - Chronic obstructive pulmonary disease, unspecified Is this a current diagnosis for this admission?: Yes (8) Chronic kidney disease (CKD) Qualifiers: Chronic kidney disease stage: stage 4 (severe) Qualified Code(s): N18.4 - Chronic kidney disease, stage 4 (severe) Is this a current diagnosis for this admission?: Yes (9) Obstructive sleep apnea Is this a current diagnosis for this admission?: Yes (10) Thrombocytopenia Is this a current diagnosis for this admission?: Yes (11) Anemia due to acute blood loss Is this a current diagnosis for this admission?: Yes - Notes Notes: Patient remains critically ill with predominantly respiratory failure and also some congestive heart failure. Patient has shown the significant improvement with adequate diuresis. 2-D echocardiogram reviewed. It showed predominantly right-sided problems with some diastolic dysfunction. Patient noted to have significant intermittent atrial tachyarrhythmia. In addition patient was noted to have nonsustained runs of ventricular tachycardia versus wide-complex tachycardia. I believe it's mostly aberrant conduction but cannot rule out ventricular tachycardia arrhythmias Patient has shown significant improvement in respiratory status but still needs intermittent positive pressure ventilation noninvasively. Patient lab works were reviewed. They remains stable. Patient has elevated CO2 in chemistry panel therefore he could be significantly retaining carbon dioxide. Generally overall prognosis seems to be on the poor side because of underlying severe COPD. As regards atrial fibrillation, patient currently on just rate control. Patient has history of significant anemia and history of blood loss.. Will continue to follow patient. Patient has been also noted to be intermittently confused. Patient will need to be monitored very closely. Discussed with hospitalist. - Time Time with patient: Greater than 35 minutes - CODE STATUS was discussed, patient remains full code. Surrogate decision-maker unchanged. Multiple medical problems were addressed.More than 50% of the time spent coordinating care, discussing management plans with involved caregivers. Management plans discussed with involved personnels. Medical decision making was of moderate to high complexity, patient's has multiple severe comorbidities.
[2016-10-11] MEDS: METOPROLOL SUCCINATE 50 MG TAB.SR.24H PO SCH (21:52)
[2016-10-11] MEDS: PHARMACY COMMUNICATION ORDER MC SCH (21:53)
[2016-10-11] MEDS: DOXAZOSIN MESYLATE 4 MG TABLET PO SCH (21:53)
[2016-10-12] MEDS: PHENAZOPYRIDINE HCL 100 MG TABLET PO SCH ×3 (01:14→18:27)
[2016-10-12] MEDS: HYDRALAZINE HCL 50 MG TABLET PO SCH ×3 (05:34→22:44)
[2016-10-12] MEDS: IMIPENEM/CILASTATIN SODIUM 500 MG in NORMAL SALINE 100 ML IV SCH ×3 (05:34→22:36)
[2016-10-12 05:37] LABS: HEMATOCRIT 25.8 % (37.9-51.0); HEMOGLOBIN 8.5 g/dL (13.5-17.0); HGB HCT DIFFERENCE -0.3; MEAN CORPUSCULAR HEMOGLOBIN 26.7 pg (27.0-33.4); MEAN CORPUSCULAR VOLUME 81 fl (80-97); RED BLOOD COUNT 3.19 10^6/uL (4.35-5.55); RED CELL DISTRIBUTION WIDTH 19.5 % (11.5-14.0); WHITE BLOOD COUNT 5.7 10^3/uL (4.0-10.5)
[2016-10-12 05:57] LABS: BLOOD UREA NITROGEN 29 mg/dL (7-20); CALCIUM 8.7 mg/dL (8.4-10.2); CHLORIDE 86 mmol/L (98-107); GLUCOSE 100 mg/dL (75-110); POTASSIUM 3.5 mmol/L (3.6-5.0); SODIUM 141.7 mmol/L (137-145)
[2016-10-12 06:20] LABS: ANISOCYTOSIS 2+; BAND NEUTROPHILS % (MANUAL) 1 % (3-5); BASOPHILS % (MANUAL) 1 % (0-2); BURR CELLS SLIGHT; EOSINOPHILS % (MANUAL) 2 % (0-6); LYMPHOCYTES % (MANUAL) 12 % (13-45); OVALOCYTES SLIGHT; POIKILOCYTOSIS SLIGHT; POLYCHROMASIA SLIGHT; SCHISTOCYTES SLIGHT; TEAR DROP CELLS SLIGHT; TOTAL CELLS COUNTED 100; TOXIC GRANULATION SLIGHT
[2016-10-12 06:48] LABS: ANION GAP 9 (5-19)
[2016-10-12 06:57] LABS: CARBON DIOXIDE 47 mmol/L (22-30)
[2016-10-12] MEDS: DILTIAZEM HCL 120 MG CAP.SR.24H PO SCH ×2 (10:10→22:44)
[2016-10-12] MEDS: FERROUS SULFATE 325 MG TABLET PO SCH ×2 (10:10→17:13)
[2016-10-12] MEDS: FOLIC ACID/VITAMIN B COMP W-C CAPSULE PO SCH (10:11)
[2016-10-12] MEDS: ISOSORBIDE MONONITRATE 30 MG TAB.ER.24H PO SCH (10:11)
[2016-10-12] MEDS: DOCUSATE SODIUM 100 MG CAPSULE PO SCH ×2 (10:11→17:13)
[2016-10-12] MEDS: CALCIUM CARBONATE 500 MG TAB.CHEW PO SCH (10:11)
[2016-10-12] MEDS: INSULIN GLARGINE,HUM.REC.ANLOG 300 UNIT/3 ML INSULN.PEN SUBCUT SCH ×2 (10:11→22:42)
[2016-10-12] MEDS: TIOTROPIUM BROMIDE DPI 5 CAP/KIT (18 MCG/CAP) IH SCH (10:15)
[2016-10-12] MEDS: METOLAZONE 2.5 MG TABLET PO SCH ×2 (10:22→17:13)
[2016-10-12] MEDS: DAPTOMYCIN 500 MG in NORMAL SALINE 50 ML IV SCH (10:23)
--- NOTE | 2016-10-12 11:06 | PDOC PROGRESS REPORT ---
Subjective Progress Note for:: 10/12/16 Subjective:: Patient seen this morning. Patient has been moved out of the unit. His respiratory status is improved with improved shortness of breath however he has been noted to be confused by the nurse. Patient does respond to direct questioning. Patient's telemetry strips reviewed and showed no significant sustained tachycardia or bradycardia arrhythmias. Currently on BiPAP therapy but now on intermittent basis. Pt is denying any chest arm or neck discomfort. Patient denying any PND, orthopnea. Patient denying any fever chills. Patient denying any other significant discomfort. Patient is maintaining atrial fibrillation. Rate is well controlled. Occasional VPCs are noted. Review of systems: Rest review of systems negative. Medications: Medications have been reviewed. Physical Exam Vital Signs: Temp Pulse Resp BP Pulse Ox 98.4 F 61 28 H 113/51 L 100 10/12/16 04:46 10/12/16 07:00 10/12/16 08:00 10/12/16 04:46 10/12/16 08:00 Intake & Output 10/11/16 10/12/16 10/13/16 06:59 06:59 06:59 Intake Total 950 1348 Output Total 7529 4225 Balance -0660 -3351 Weight 106.4 kg 108.7 kg Exam: GENERAL: well-nourished and in no acute distress. Patient is alert but seems confused and only oriented to person. HEAD: Atraumatic, normocephalic. EYES: Pupils equal round and reactive to light, extraocular movements intact, sclera anicteric, conjunctiva are normal. ENT: TMs normal, nares patent, oropharynx clear without exudates. Moist mucous membranes. No oral ulcerations or bleeding gums noted NECK: supple without lymphadenopathy or JVD. Trachea is central. No cervical or axillary lymphadenopathy noted. Carotids are 2+ LUNGS: Breath sounds bibasilar fine crackles at bases. Bilateral mild wheezing noted. No significant dullness noted. CHEST: Palpation of chest wall shows no significant chest wall tenderness. HEART: [facility], No PSH, 2/6 JEIMY aortic area, 1/6 alfaro systolic murmur mitral area, rubs or gallops. ABDOMEN: Soft, no significant tenderness appreciated, normoactive bowel sounds. No guarding, no rebound. No rigidity noted . No masses appreciated. EXTREMITIES: Pedal pulses are 1-2+, no calf tenderness noted, Trace + pedal edema noted. No clubbing or cyanosis. NEUROLOGICAL: Patient is alert but is not able to participate in neurological exam because of patient's current mental status PSYCH: Patient cannot participate in a neurologic and psych exam because of the patient's current mental status SKIN: No significant ecchymosis, rash, ulcerations or signs of pruritus noted. MUSCULOSKELETAL EXAM: No significant joint swelling noted. Results Laboratory Results: 10/12/16 04:15 10/12/16 04:15 10/12/16 10/12/16 04:15 04:15 WBC 5.7 RBC 3.19 L Hgb 8.5 L Hct 25.8 L MCV 81 MCH 26.7 L MCHC 33.0 RDW 19.5 H Plt Count 193 Seg Neutrophils % Not Reportable Lymphocytes % Not Reportable Monocytes % Not Reportable Eosinophils % Not Reportable Basophils % Not Reportable Absolute Neutrophils Not Reportable Absolute Lymphocytes Not Reportable Absolute Monocytes Not Reportable Absolute Eosinophils Not Reportable Absolute Basophils Not Reportable Sodium 141.7 Potassium 3.5 L Chloride 86 L Carbon Dioxide 47 H* Anion Gap 9 BUN 29 H Creatinine 1.70 H Est GFR ( Amer) 47 L Est GFR (Non-Af Amer) 39 L Glucose 100 Calcium 8.7 Magnesium 2.0 10/04/16 10/04/16 10/04/16 04:30 06:25 11:25 Creatine Kinase 43 L 37 L CK-MB (CK-2) 2.68 Troponin I 0.069 NT-Pro-B Natriuret Pep 10/04/16 10/04/16 10/04/16 11:25 18:25 18:25 Creatine Kinase 47 L CK-MB (CK-2) 2.53 3.51 Troponin I 0.065 0.067 NT-Pro-B Natriuret Pep 10/05/16 10/07/16 10/10/16 09:00 05:25 06:15 Creatine Kinase CK-MB (CK-2) Troponin I 0.077 NT-Pro-B Natriuret Pep 29770 H 68361 H Impressions: Chest X-Ray 10/10/16 06:00 IMPRESSION: Diffuse bilateral alveolar and interstitial infiltrates unchanged from 10/07/2016 Assessment & Plan - Diagnosis (1) NSVT (nonsustained ventricular tachycardia) Is this a current diagnosis for this admission?: Yes (2) Wide-complex tachycardia Is this a current diagnosis for this admission?: Yes (3) Acute on chronic diastolic (congestive) heart failure Is this a current diagnosis for this admission?: Yes (4) Respiratory failure Qualifiers: Chronicity: acute on chronic Respiratory failure complication: hypoxia and hypercapnia Qualified Code(s): J96.21 - Acute and chronic respiratory failure with hypoxia Is this a current diagnosis for this admission?: Yes (5) Hypertension Qualifiers: Hypertension type: essential hypertension Qualified Code(s): I10 - Essential (primary) hypertension Is this a current diagnosis for this admission?: Yes (6) Atrial fibrillation Qualifiers: Atrial fibrillation type: chronic Qualified Code(s): I48.2 - Chronic atrial fibrillation Is this a current diagnosis for this admission?: Yes (7) COPD (chronic obstructive pulmonary disease) Qualifiers: COPD type: unspecified COPD Qualified Code(s): J44.9 - Chronic obstructive pulmonary disease, unspecified Is this a current diagnosis for this admission?: Yes (8) Chronic kidney disease (CKD) Qualifiers: Chronic kidney disease stage: stage 4 (severe) Qualified Code(s): N18.4 - Chronic kidney disease, stage 4 (severe) Is this a current diagnosis for this admission?: Yes (9) Obstructive sleep apnea Is this a current diagnosis for this admission?: Yes (10) Thrombocytopenia Is this a current diagnosis for this admission?: Yes (11) Anemia due to acute blood loss Is this a current diagnosis for this admission?: Yes - Notes Notes: Patient shown significant improvement but still with predominantly respiratory failure and also some congestive heart failure. Patient has shown the expected improvement with excessive diuresis. Patient now felt to be euvolemic to mildly hypovolemic and dehydrated. Patient lab works were reviewed. They remains stable. Patient has elevated CO2 in chemistry panel therefore he could be significantly retaining carbon dioxide. Have ordered a BNP level and a chest x-ray to assess pulmonary status, fluid status etc. As regards atrial fibrillation, patient currently on just rate control. Heart rate is reasonably well controlled. There was no recurrence of wide-complex tachycardia. Patient has history of significant anemia and history of blood loss. Also patient's arterial blood gas review shows progressive increase in CO2 level. Today patient was switched over to by mouth Demadex and have also added spironolactone. Patient to continue with Zaroxolyn. Prognosis remains grave. Will continue to follow patient. - Time Time with patient: Greater than 35 minutes - CODE STATUS was discussed, patient remains full code. Surrogate decision-maker LJ COKER. Multiple medical problems were addressed.More than 50% of the time spent coordinating care, discussing management plans with involved caregivers. Management plans discussed with involved personnels. Medical decision making was of moderate to high complexity, patient's has multiple severe comorbidities. Medications reviewed and adjusted accordingly: Yes
[2016-10-12] MEDS ORDERED: TORSEMIDE 20 MG TABLET PO ONE (12:00)
[2016-10-12] MEDS: INSULIN LISPRO 100 UNIT/ML 3 ML VIAL SUBCUT PRN ×3 (12:43→22:48)
--- NOTE | 2016-10-12 13:29 | PDOC PROGRESS REPORT ---
Subjective Progress Note for:: 10/12/16 Subjective:: This is a follow-up visit for acute on chronic respiratory failure with hypoxemia and hypercapnia. The patient is off of BiPAP and has been on nasal cannula to the night he has done well. He expresses concern that he is moved to to many different rooms in the hospital and is not back with the nurse that he likes best. Physical Exam Vital Signs: Temp Pulse Resp BP Pulse Ox 98.8 F 60 18 120/50 L 99 10/12/16 11:59 10/12/16 11:59 10/12/16 11:59 10/12/16 11:59 10/12/16 11:59 Intake & Output 10/11/16 10/12/16 10/13/16 06:59 06:59 06:59 Intake Total 950 1348 360 Output Total 4221 4225 1100 Balance -6615 -2877 -740 Weight 106.4 kg 108.7 kg PHYSICAL EXAM: GENERAL: This is a well-developed well-nourished morbidly obese - [place] male resting on nasal cannula in no acute distress. HEART: Irregular rate and rhythm. No murmurs rubs or gallops. LUNGS: Left lower lobe crackles auscultated with equal rise and fall of the chest. Currently on bilevel Pap ABDOMEN: Soft, nontender, nondistended obese with normoactive bowel sounds EXTREMITIES: No clubbing cyanosis. Edema much improved. It seems to have resolved and his arms. The skin is loose. Trace to 1+ Edema now in the lower extremities. overall improved. peripheral pulses difficult to palpate. Wound VAC in place on the right lateral foot. NEURO: Awake, alert, oriented x3. Cranial nerves II through XII grossly intact. PSYCH: Normal affect. Results Laboratory Results: 10/12/16 04:15 10/12/16 04:15 10/12/16 10/12/16 04:15 04:15 WBC 5.7 RBC 3.19 L Hgb 8.5 L Hct 25.8 L MCV 81 MCH 26.7 L MCHC 33.0 RDW 19.5 H Plt Count 193 Seg Neutrophils % Not Reportable Lymphocytes % Not Reportable Monocytes % Not Reportable Eosinophils % Not Reportable Basophils % Not Reportable Absolute Neutrophils Not Reportable Absolute Lymphocytes Not Reportable Absolute Monocytes Not Reportable Absolute Eosinophils Not Reportable Absolute Basophils Not Reportable Sodium 141.7 Potassium 3.5 L Chloride 86 L Carbon Dioxide 47 H* Anion Gap 9 BUN 29 H Creatinine 1.70 H Est GFR ( Amer) 47 L Est GFR (Non-Af Amer) 39 L Glucose 100 Calcium 8.7 Magnesium 2.0 10/11/16 09:30 Nasophary (Mrsa Only) MRSA Surveillance Culture - Final NO MRSA RECOVERED 10/04/16 10/04/16 10/04/16 04:30 06:25 11:25 Creatine Kinase 43 L 37 L CK-MB (CK-2) 2.68 Troponin I 0.069 NT-Pro-B Natriuret Pep 10/04/16 10/04/16 10/04/16 11:25 18:25 18:25 Creatine Kinase 47 L CK-MB (CK-2) 2.53 3.51 Troponin I 0.065 0.067 NT-Pro-B Natriuret Pep 10/05/16 10/07/16 10/10/16 09:00 05:25 06:15 Creatine Kinase CK-MB (CK-2) Troponin I 0.077 NT-Pro-B Natriuret Pep 23700 H 43017 H Impressions: Chest X-Ray 10/12/16 00:00 IMPRESSION: Chronic congestive heart failure and pulmonary edema without significant improvement. Assessment & Plan - Diagnosis (1) Acute and chronic respiratory failure ([id number]) Plan: Acute on chronic respiratory failure secondary to multifactorial etiologies. These include acute on chronic diastolic heart failure, acute on chronic kidney disease stage IV, acute anemia blood loss, obesity with hypoventilation syndrome , pulmonary hypertension and COPD. Management as below. Continue bilevel Pap as needed. For now he is doing quite well on nasal cannula. Pulmonology is following. (2) Acute on chronic diastolic (congestive) heart failure Plan: Discontinue Lasix drip and start Demadex as per cardiology recommendations. Continue to follow I's and O's. Continue fluid restriction. Most recent echocardiogram done in June of this year shows a normal EF with diastolic dysfunction and pulmonary hypertension considered to be moderate. Continue hydralazine, metoprolol, isosorbide mononitrate, and metolazone. Cardiology is following (3) Acute on chronic renal failure Plan: Acute on chronic renal failure stage IV. Caution with Demadex. We'll continue to follow. Largely stable. (4) Lower GI bleed Plan: Patient is status post upper endoscopy on this visit which was considered to be normal. GI has signed off. No plans for colonoscopy at this point unless the patient has a profuse bleeding. This decision was made secondary to his respiratory status. Continue to monitor. (5) Anemia requiring transfusions Plan: Anemia of acute blood loss. Status post transfusions. H&H currently stable. Hematology oncology has signed off. (6) Obesity Qualifiers: Obesity severity: morbid Plan: Weight loss through dietary changes. (7) Thrombocytopenia Plan: Platelets stable. Likely drug-induced thrombocytopenia from use of a linezolid. Hematology oncology has signed off. 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 Continue wound VAC. Continue wound care. (9) Type 2 diabetes mellitus with hyperglycemia Qualifiers: Diabetes mellitus [facility] insulin use: unspecified [facility] insulin use status Qualified Code(s): E11.65 - Type 2 diabetes mellitus with hyperglycemia Plan: Continue lispro. Blood sugars are reasonable (10) Atrial fibrillation Qualifiers: Atrial fibrillation type: chronic Qualified Code(s): I48.2 - Chronic atrial fibrillation Plan: Continue rate control with Cardizem and metoprolol. Cardiology following. [employer] rhythm ships with Dr. LUCAS (11) UTI (urinary tract infection) Plan: Patient with dysuria. Large leukocyte esterase in the urine. Will give him Pyridium for now. And out on a urine culture. - Time Time Spent with patient: 15-24 minutes - Inpatient Certification Medical Necessity: Need Close Monitoring Due to Risk of Patient Decompensation
[2016-10-12] MEDS ORDERED: POTASSIUM CHLORIDE 10 MEQ TABLET.SA PO ONE (14:30)
[2016-10-12] MEDS: PHARMACY COMMUNICATION ORDER MC SCH (17:33)
[2016-10-12] MEDS ORDERED: PHENAZOPYRIDINE HCL 100 MG TABLET ONE (18:22)
[2016-10-12] MEDS: OXYCODONE-ACETAMINOPHEN 5-325 MG TABLET PO PRN (20:47)
[2016-10-12] MEDS: METOPROLOL SUCCINATE 50 MG TAB.SR.24H PO SCH (22:43)
[2016-10-12] MEDS: DOXAZOSIN MESYLATE 4 MG TABLET PO SCH (22:44)
[2016-10-13] MEDS: PHENAZOPYRIDINE HCL 100 MG TABLET PO SCH ×3 (02:31→17:27)
[2016-10-13] MEDS: OXYCODONE-ACETAMINOPHEN 5-325 MG TABLET PO PRN (03:26)
[2016-10-13] MEDS: IMIPENEM/CILASTATIN SODIUM 500 MG in NORMAL SALINE 100 ML IV SCH ×3 (06:02→21:29)
[2016-10-13] MEDS: HYDRALAZINE HCL 50 MG TABLET PO SCH ×3 (06:02→21:22)
[2016-10-13] MEDS: TIOTROPIUM BROMIDE DPI 5 CAP/KIT (18 MCG/CAP) IH SCH (10:04)
[2016-10-13] MEDS: INSULIN GLARGINE,HUM.REC.ANLOG 300 UNIT/3 ML INSULN.PEN SUBCUT SCH ×2 (10:04→21:30)
[2016-10-13] MEDS: SPIRONOLACTONE 25 MG TABLET PO SCH (10:05)
[2016-10-13] MEDS: CALCIUM CARBONATE 500 MG TAB.CHEW PO SCH (10:05)
[2016-10-13] MEDS: DILTIAZEM HCL 120 MG CAP.SR.24H PO SCH ×2 (10:05→21:23)
[2016-10-13] MEDS: DOCUSATE SODIUM 100 MG CAPSULE PO SCH ×2 (10:06→17:28)
[2016-10-13] MEDS: FERROUS SULFATE 325 MG TABLET PO SCH ×2 (10:06→17:27)
[2016-10-13] MEDS: FOLIC ACID/VITAMIN B COMP W-C CAPSULE PO SCH (10:06)
[2016-10-13] MEDS: METOLAZONE 2.5 MG TABLET PO SCH ×2 (10:10→17:27)
[2016-10-13] MEDS: ERGOCALCIFEROL (VITAMIN D2) 50000 UNIT (1.25 MG) CAPSULE PO SCH (10:11)
[2016-10-13] MEDS: TORSEMIDE 20 MG TABLET PO SCH (10:14)
[2016-10-13] MEDS: ISOSORBIDE MONONITRATE 30 MG TAB.ER.24H PO SCH (10:14)
[2016-10-13] MEDS: DAPTOMYCIN 500 MG in NORMAL SALINE 50 ML IV SCH (10:31)
--- NOTE | 2016-10-13 11:40 | PDOC PROGRESS REPORT ---
Subjective Progress Note for:: 10/13/16 Subjective:: This is a follow-up visit for acute on chronic respiratory failure with hypoxemia and hypercapnia. The patient is off of BiPAP and has been on nasal cannula for the last 48 hours and has done well. He has complaints of penile and with his chronic indwelling Daniels catheter. It is less painful today. Physical Exam Vital Signs: Temp Pulse Resp BP Pulse Ox 98.1 F 59 L 16 127/57 H 98 10/13/16 07:35 10/13/16 07:35 10/13/16 07:35 10/13/16 07:35 10/13/16 07:35 Intake & Output 10/12/16 10/13/16 10/14/16 06:59 06:59 06:59 Intake Total 1348 1656 Output Total 4225 3325 Balance -3386 -5237 Weight 108.7 kg 111.5 kg PHYSICAL EXAM: GENERAL: This is a well-developed well-nourished morbidly obese - [place] male resting on nasal cannula in no acute distress. HEART: Irregular rate and rhythm. Questionable soft 1/6 murmurs. No rubs or gallops. LUNGS: Clear anteriorly with equal rise and fall of the chest. Off of BiPAP ABDOMEN: Soft, nontender, nondistended obese with normoactive bowel sounds EXTREMITIES: No clubbing cyanosis. Edema much improved. It seems to have resolved and his arms. The skin is loose. Trace to 1+ Edema now in the lower extremities. overall improved. peripheral pulses difficult to palpate. Wound VAC in place on the right lateral foot. NEURO: Awake, alert, Cranial nerves II through XII grossly intact. SKIN: Brawny texture in the lower extremities consistent with peripheral vascular disease bilaterally PSYCH: Normal affect. Results Laboratory Results: 10/12/16 04:15 10/12/16 04:15 10/11/16 09:30 Nasophary (Mrsa Only) MRSA Surveillance Culture - Final NO MRSA RECOVERED 10/04/16 10/04/16 10/04/16 04:30 06:25 11:25 Creatine Kinase 43 L 37 L CK-MB (CK-2) 2.68 Troponin I 0.069 NT-Pro-B Natriuret Pep 10/04/16 10/04/16 10/04/16 11:25 18:25 18:25 Creatine Kinase 47 L CK-MB (CK-2) 2.53 3.51 Troponin I 0.065 0.067 NT-Pro-B Natriuret Pep 10/05/16 10/07/16 10/10/16 09:00 05:25 06:15 Creatine Kinase CK-MB (CK-2) Troponin I 0.077 NT-Pro-B Natriuret Pep 57801 H 95617 H 10/12/16 13:38 Creatine Kinase CK-MB (CK-2) Troponin I NT-Pro-B Natriuret Pep 5250 H Impressions: Chest X-Ray 10/12/16 00:00 IMPRESSION: Chronic congestive heart failure and pulmonary edema without significant improvement. Assessment & Plan - Diagnosis (1) Acute and chronic respiratory failure ([id number]) Plan: Acute on chronic respiratory failure secondary to multiple etiologies. These include acute on chronic diastolic heart failure, acute on chronic kidney disease stage IV, acute anemia blood loss, obesity with hypoventilation syndrome , pulmonary hypertension and COPD. Management as below. Continue bilevel Pap as needed. For now he is doing quite well on nasal cannula. Pulmonology and cardiology are following. (2) Acute on chronic diastolic (congestive) heart failure Plan: Continue Demadex as per cardiology recommendations. Continue to follow I's and O's. Continue fluid restriction. Most recent echocardiogram done in June of this year shows a normal EF with diastolic dysfunction and moderate pulmonary hypertension. Continue hydralazine, metoprolol, isosorbide mononitrate, and metolazone. Cardiology is following (3) Acute on chronic renal failure Plan: Acute on chronic renal failure stage IV. Caution with Demadex. We'll continue to follow. Largely stable. (4) Lower GI bleed Plan: Patient is status post upper endoscopy on this visit -which was considered to be normal. GI has signed off. No plans for colonoscopy at this point unless the patient has a profuse bleeding. This decision was made secondary to his respiratory status. Continue to monitor. (5) Anemia requiring transfusions Plan: Anemia of acute blood loss. Status post transfusions. H&H currently stable. Hematology oncology has signed off. (6) Obesity Qualifiers: Obesity severity: morbid Plan: Weight loss through dietary changes. (7) Thrombocytopenia Plan: Resolved. Likely drug-induced thrombocytopenia from use of a linezolid. Hematology oncology has signed off. 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 Continue wound VAC. Continue wound care. (9) Type 2 diabetes mellitus with hyperglycemia Qualifiers: Diabetes mellitus [employer] insulin use: unspecified correction insulin use status Qualified Code(s): E11.65 - Type 2 diabetes mellitus with hyperglycemia Plan: Continue lispro. Blood sugars are reasonable (10) Atrial fibrillation Qualifiers: Atrial fibrillation type: chronic Qualified Code(s): I48.2 - Chronic atrial fibrillation Plan: Continue rate control with Cardizem and metoprolol. Cardiology following. (11) UTI (urinary tract infection) Plan: Patient with dysuria. Large leukocyte esterase in the urine. Will give him Pyridium for now. Urine culture negative after 1 day. - Time Time Spent with patient: 15-24 minutes - A discharge back to [facility] tomorrow - Inpatient Certification Medical Necessity: Significant Comorbidiites Make Outpatient Treatment Too Risky
[2016-10-13] MEDS: INSULIN LISPRO 100 UNIT/ML 3 ML VIAL SUBCUT PRN ×2 (16:46→21:43)
[2016-10-13] MEDS: PHARMACY COMMUNICATION ORDER MC SCH (17:29)
--- NOTE | 2016-10-13 19:44 | PDOC PROGRESS REPORT ---
Subjective Progress Note for:: 10/13/16 Subjective:: Patient seen this morning. Patient seems stronger. He is expressing himself a whole lot with loud voice. His respiratory status is improved with improved shortness of breath. Patient however has not ambulated much. Pt is denying any chest arm or neck discomfort. Patient denying any PND, orthopnea. Patient denying any fever chills. Patient denying any other significant discomfort. Patient is maintaining atrial flutter fibrillation. 8 beat run of wide-complex tachycardia noted. Review of systems: Rest review of systems negative. Medications: Medications have been reviewed. Physical Exam Vital Signs: Temp Pulse Resp BP Pulse Ox 98.1 F 59 L 16 127/57 H 98 10/13/16 07:35 10/13/16 07:35 10/13/16 07:35 10/13/16 07:35 10/13/16 07:35 Intake & Output 10/12/16 10/13/16 10/14/16 06:59 06:59 06:59 Intake Total 1348 1656 Output Total 4225 2725 Balance -2877 -1069 Weight 108.7 kg 111.5 kg Exam: GENERAL: well-nourished and in no acute distress. Alert and oriented x3. Nurses tell me that patient has been intermittently confused and occasionally agitated. HEAD: Atraumatic, normocephalic. EYES: Pupils equal round and reactive to light, extraocular movements intact, sclera anicteric, conjunctiva are normal. ENT: TMs normal, nares patent, oropharynx clear without exudates. Moist mucous membranes. No oral ulcerations or bleeding gums noted NECK: supple without lymphadenopathy. Trachea is central. No cervical or axillary lymphadenopathy noted. Carotids are 2+, JVD WNL LUNGS: Respiration seems nonlabored, no significant accessory muscle action noted. Bilateral mild wheezing noted. CHEST: Palpation of the chest wall shows no significant chest wall tenderness. No other significant abnormalities noted. HEART: Leland PORTFOLIO MANAGER, No PSH, 1/6 JEIMY aortic area, 1/6 alfaro systolic murmur mitral area, no rubs, no gallops. ABDOMEN: Soft, no significant tenderness appreciated, normoactive bowel sounds. No guarding, no rebound. No rigidity noted . No masses appreciated. EXTREMITIES: Pedal pulses are 1-2+, no calf tenderness noted. No clubbing or cyanosis.1+ pedal edema noted NEUROLOGICAL: Focused neurological exam showed no significant neurologic deficit. Normal speech, no focal weakness appreciated. PSYCH: Normal mood, normal affect. Judgment and insight within normal limits. SKIN: No significant ecchymosis, rash, ulcerations or signs of pruritus noted. Chronic dermatitis changes noted both legs. Patient however noted to be wearing support stockings today. MUSCULOSKELETAL EXAM: No significant joint swelling noted. Results Laboratory Results: 10/12/16 04:15 10/12/16 04:15 10/11/16 09:30 Nasophary (Mrsa Only) MRSA Surveillance Culture - Final NO MRSA RECOVERED 10/04/16 10/04/16 10/04/16 04:30 06:25 11:25 Creatine Kinase 43 L 37 L CK-MB (CK-2) 2.68 Troponin I 0.069 NT-Pro-B Natriuret Pep 10/04/16 10/04/16 10/04/16 11:25 18:25 18:25 Creatine Kinase 47 L CK-MB (CK-2) 2.53 3.51 Troponin I 0.065 0.067 NT-Pro-B Natriuret Pep 10/05/16 10/07/16 10/10/16 09:00 05:25 06:15 Creatine Kinase CK-MB (CK-2) Troponin I 0.077 NT-Pro-B Natriuret Pep 27389 H 62625 H 10/12/16 13:38 Creatine Kinase CK-MB (CK-2) Troponin I NT-Pro-B Natriuret Pep 5250 H Impressions: Chest X-Ray 10/12/16 00:00 IMPRESSION: Chronic congestive heart failure and pulmonary edema without significant improvement. Assessment & Plan - Diagnosis (1) NSVT (nonsustained ventricular tachycardia) Is this a current diagnosis for this admission?: Yes (2) Wide-complex tachycardia Is this a current diagnosis for this admission?: Yes (3) Acute on chronic diastolic (congestive) heart failure Is this a current diagnosis for this admission?: Yes (4) Respiratory failure Qualifiers: Chronicity: acute on chronic Respiratory failure complication: hypoxia and hypercapnia Qualified Code(s): J96.21 - Acute and chronic respiratory failure with hypoxia Is this a current diagnosis for this admission?: Yes (5) Hypertension Qualifiers: Hypertension type: essential hypertension Qualified Code(s): I10 - Essential (primary) hypertension Is this a current diagnosis for this admission?: Yes (6) Atrial fibrillation Qualifiers: Atrial fibrillation type: chronic Qualified Code(s): I48.2 - Chronic atrial fibrillation Is this a current diagnosis for this admission?: Yes (7) COPD (chronic obstructive pulmonary disease) Qualifiers: COPD type: unspecified COPD Qualified Code(s): J44.9 - Chronic obstructive pulmonary disease, unspecified Is this a current diagnosis for this admission?: Yes (8) Chronic kidney disease (CKD) Qualifiers: Chronic kidney disease stage: stage 4 (severe) Qualified Code(s): N18.4 - Chronic kidney disease, stage 4 (severe) Is this a current diagnosis for this admission?: Yes (9) Obstructive sleep apnea Is this a current diagnosis for this admission?: Yes (10) Thrombocytopenia Is this a current diagnosis for this admission?: Yes (11) Anemia due to acute blood loss Is this a current diagnosis for this admission?: Yes - Notes Notes: Nonsustained wide-complex tachycardia/V. tach: Most likely aberrant conduction but cannot rule out ventricular tachycardia. Patient does have normal LVEF but RVEF is low. At this point will continue beta alia, continue with oxygenation, maintain potassium over milligrams per liter and magnesium over 1.8 mg/L. Patient has been noted to be asymptomatic. Do not feel any invasive evaluation is indicated at this point. However if patient has sustained ventricular tachycardia or V. fib become symptomatic then will consider further evaluation with email deployment specialist. Acute on chronic diastolic heart failure: This has improved. Will repeat a chest x-ray and a BNP level. Respiratory failure: Improved. Patient still would benefit from nightly bilevel therapy. Atrial fibrillation: This is chronic, rate is well controlled, patient not being anticoagulated, this is stable. Continue with rate control and consider anticoagulation, if there are contraindications. However there are relative contraindication at this point.. COPD: Stable. Patient being adequately managed. Patient is being followed by desulphurizer operator. Next Obstructive sleep apnea: Patient to have nightly bilevel therapy. Anemia: Currently is stable. - Time Time with patient: Greater than 35 minutes - CODE STATUS was discussed, patient remains full code. Surrogate decision-maker unchanged. Multiple medical problems were addressed.More than 50% of the time spent coordinating care, discussing management plans with involved caregivers. Management plans discussed with involved personnels. Medical decision making was of moderate to high complexity, patient's has multiple severe comorbidities.
[2016-10-13 21:02] LABS: BLOOD UREA NITROGEN 30 mg/dL (7-20); CALCIUM 8.9 mg/dL (8.4-10.2); CHLORIDE 87 mmol/L (98-107); CREATININE RESULT 1.91 mg/dL (0.52-1.25); GLUCOSE 160 mg/dL (75-110); POTASSIUM 3.9 mmol/L (3.6-5.0)
[2016-10-13 21:13] LABS: ANION GAP 8 (5-19)
[2016-10-13 21:16] LABS: CARBON DIOXIDE 44 mmol/L (22-30)
[2016-10-13] MEDS: METOPROLOL SUCCINATE 50 MG TAB.SR.24H PO SCH (21:23)
[2016-10-13] MEDS: DOXAZOSIN MESYLATE 4 MG TABLET PO SCH (21:23)
[2016-10-14] MEDS: PHENAZOPYRIDINE HCL 100 MG TABLET PO SCH ×2 (02:25→10:10)
[2016-10-14] MEDS: IMIPENEM/CILASTATIN SODIUM 500 MG in NORMAL SALINE 100 ML IV SCH (05:21)
[2016-10-14] MEDS: HYDRALAZINE HCL 50 MG TABLET PO SCH ×2 (05:22→13:11)
[2016-10-14 05:45] LABS: ABSOLUTE BASOPHILS # (AUTO) 0.1 10^3/uL (0.0-0.2); ABSOLUTE EOSINOPHILS # (AUTO) 0.2 10^3/uL (0.0-0.6); ABSOLUTE MONOCYTES (AUTO) 0.5 10^3/uL (0.1-1.4); BASOPHILS % (AUTO) 1.5 % (0-2); EOSINOPHILS % (AUTO) 3.1 % (0-6); HEMOGLOBIN 9.1 g/dL (13.5-17.0); HGB HCT DIFFERENCE -0.7; LYMPHOCYTES % (AUTO) 17.2 % (13-45); MEAN CORPUSCULAR HEMOGLOBIN 26.4 pg (27.0-33.4); MEAN CORPUSCULAR HGB CONC 32.3 g/dL (32.0-36.0); MEAN CORPUSCULAR VOLUME 82 fl (80-97); MONOCYTES % (AUTO) 8.9 % (3-13); RED BLOOD COUNT 3.44 10^6/uL (4.35-5.55); RED CELL DISTRIBUTION WIDTH 19.2 % (11.5-14.0); SEGMENTED NEUTROPHILS % (AUTO) 69.3 % (42-78); WHITE BLOOD COUNT 5.8 10^3/uL (4.0-10.5)
[2016-10-14 05:53] LABS: BLOOD UREA NITROGEN 30 mg/dL (7-20); CHLORIDE 87 mmol/L (98-107); CREATININE RESULT 1.87 mg/dL (0.52-1.25); GLUCOSE 104 mg/dL (75-110); MAGNESIUM 2.2 mg/dL (1.6-2.3); SODIUM 140.5 mmol/L (137-145)
[2016-10-14 06:06] LABS: ANION GAP 10 (5-19)
[2016-10-14 06:09] LABS: CARBON DIOXIDE 44 mmol/L (22-30)
[2016-10-14] MEDS: METOLAZONE 2.5 MG TABLET PO SCH (10:09)
[2016-10-14] MEDS: DILTIAZEM HCL 120 MG CAP.SR.24H PO SCH (10:09)
[2016-10-14] MEDS: INSULIN GLARGINE,HUM.REC.ANLOG 300 UNIT/3 ML INSULN.PEN SUBCUT SCH (10:09)
[2016-10-14] MEDS: TORSEMIDE 20 MG TABLET PO SCH (10:10)
[2016-10-14] MEDS: OXYCODONE-ACETAMINOPHEN 5-325 MG TABLET PO PRN (10:10)
[2016-10-14] MEDS: DOCUSATE SODIUM 100 MG CAPSULE PO SCH (10:10)
[2016-10-14] MEDS: FERROUS SULFATE 325 MG TABLET PO SCH (10:10)
[2016-10-14] MEDS: CALCIUM CARBONATE 500 MG TAB.CHEW PO SCH (10:11)
[2016-10-14] MEDS: SPIRONOLACTONE 25 MG TABLET PO SCH (10:11)
[2016-10-14] MEDS: ISOSORBIDE MONONITRATE 30 MG TAB.ER.24H PO SCH (10:11)
[2016-10-14] MEDS: FOLIC ACID/VITAMIN B COMP W-C CAPSULE PO SCH (10:11)
--- NOTE | 2016-10-14 10:40 | EKG REPORT ---
SEVERITY:- ABNORMAL ECG - A FLUTTER WITH 4:1 CONDUCTION FIRST DEGREE AV BLOCK NONSPECIFIC INTRAVENTRICULAR CONDUCTION DELAY : Confirmed by: Rehan Lloyd 14-Oct-2016 10:40:28
--- NOTE | 2016-10-14 11:22 | PDOC TRANSFER SUMMARY ---
General - Admit/Disc Date/PCP Admission Date/Primary Care Provider: 10/03/16 04:59 SUDEEP CHEUNG Discharge Date: 10/14/16 - Discharge Diagnosis (1) Acute and chronic respiratory failure ([id number]) Summary: Patient is discharged on continuous oxygen keep O2 sats greater than 88%. Intermittent BiPAP may or may not be needed. Thus far he has been off of BiPAP now for the last 72 hours. Continue various nebulizer treatments and inhalers. Follow with primary care physician in one week. (2) Acute on chronic diastolic (congestive) heart failure Summary: Continue cardiac meds to include hydralazine, Cardizem, Demadex. Patient should follow with cardiology in 1 week. (3) Acute on chronic renal failure Summary: Improved overall. Creatinine quite stable. Old PCP in a week. (4) Lower GI bleed Summary: Patient went or upper endoscopy which was unrevealing. Colonoscopy was deferred. This decision was made secondary to the patient's underlying respiratory status. No plans in the future for colonoscopy as profuse bleeding. Eliquis was stopped. Will continue aspirin. (5) Anemia requiring transfusions Summary: He is status post 2 units packed red blood cells. Hemoglobin is stable. (6) Obesity Summary: Weight loss through dietary changes recommended. (7) Thrombocytopenia Is this a current diagnosis for this admission?: Yes (8) Osteomyelitis of right foot Is this a current diagnosis for this admission?: Yes (9) Type 2 diabetes mellitus with hyperglycemia Summary: Continue Lantus every 12 hours and sliding scale insulin. (10) Atrial fibrillation Summary: Unfortunately, ELQUIS was discontinued secondary to a GI bleed. Continue with aspirin. Patient is currently rate controlled. Continue various cardiac medications. (11) UTI (urinary tract infection) Summary: Status post treatment. - Additional Information Resuscitation Status: Full Code Discharge Diet: Cardiac, Other (Comments) - fluid restriction of 2 L/day Discharge Activity: Balance Activity w/Rest Home Medications: B Complex & C No.20/Folic Acid [Renal Caps Softgel] 1 cap PO DAILY 07/03/16 Ergocalciferol (Vitamin D2) [Vitamin D2] 50,000 units PO ABDALLA 07/03/16 Ferrous Sulfate [Feosol 325 mg Tablet] 325 mg PO BID 07/03/16 Isosorbide Mononitrate [Imdur 30 mg Tablet.er] 30 mg PO DAILY 07/03/16 Tiotropium Shiloh [Spiriva Handihaler 18 mcg/dose (30 Dose)] 1 cap IH DAILY 05/09 Hydralazine HCl [Apresoline 50 mg Tablet] 100 mg PO Q8 #0 tablet 07/24/16 Polyethylene Glycol 3350 [Miralax Powder 17 gm/Packet] 17 gm PO DAILY #0 powd.pack 07/24/16 Aspirin [Adult Low Dose Aspirin EC] 81 mg PO DAILY #30 tablet. 08/13/16 Docusate Sodium [Colace 100 mg Capsule] 100 mg PO BID capsule 08/13/16 Doxazosin Mesylate [Cardura 4 mg Tablet] 4 mg PO QHS tablet 08/13/16 Epoetin Ernesto [Procrit Inj 20,000 Unit/1 ml Vial (Renal)] 20,000 unit SUBCUT Q7D ml 08/13/16 Insulin Lispro [Humalog Insulin (Lispro) 100 unit/mL] 0 - 12 unit SUBCUT ACHSP PRN unit 08/13/16 Metoprolol Succinate [Toprol Xl 50 mg Tab.sr] 50 mg PO QHS tab.sr.24h 08/13/16 Prednisone [Deltasone 20 mg Tablet] 40 mg PO DAILY #30 tablet 09/17/16 Acetaminophen [Tylenol 325 mg Tablet] 650 mg PO Q4HP PRN 10/03/16 Imipenem/Cilastatin Sodium [Imipenem-Cilastatin 500 mg Vl] 500 mg IV Q6 Ipratropium/Albuterol Sulfate [Duoneb 3 ml Ampul] 1 vial NEB Q6 10/03/16 Levalbuterol HCl [Xopenex Neb 1.25 mg/3 ml Ampul] 1.25 mg NEB RTQ4HP PRN Omeprazole 20 mg PO QAM 10/03/16 Calcium Carbonate [Tums Chewable 500 mg Tab.chew] 1,000 mg PO DAILY tab.chew Daptomycin 500 mg IV DAILY #10 vial 10/14/16 Diltiazem HCl [Cardizem Cd 120 mg Capsule] 120 mg PO Q12 cap.sr.24h 10/14/16 Insulin Glargine,Hum.rec.anlog [Lantus Insulin 100 Unit/mL] 10 unit SUBCUT Q12 insuln.pen 10/14/16 Metolazone [Zaroxolyn 2.5 mg Tablet] 2.5 mg PO BID tablet 10/14/16 Oxycodone HCl/Acetaminophen [Percocet 5-325 mg Tablet] 1 tab PO Q6HP PRN #28 tablet 10/14/16 Phenazopyridine HCl [Pyridium 100 mg Tablet] 100 mg PO Q8A tablet 10/14/16 Spironolactone [Aldactone 25 mg Tablet] 25 mg PO DAILY tablet 10/14/16 Torsemide [Demadex 20 mg Tablet] 20 mg PO DAILY tablet 10/14/16 History of Present Illness Admission Date/PCP: 10/03/16 04:59 H&P as per admitting physician: Patient complains of: Dark-colored stools History of Present Illness: CHARLA WEBB JR is a 81 year old male with an extensive past medical history of diabetes, diastolic heart failure, A. fib on Eliquis, lower extremity venous stasis, morbid obesity, obstructive sleep apnea, prostate cancer, chronic kidney disease, COPD, diabetic foot ulcer with osteomyelitis on imipenem and linezolid. Within his usual state of health until noted by retirement staff to have dark-colored stool with trace bright red blood without abdominal pain nausea vomiting or chest pain. He's brought to the emergency room for evaluation where his found to have altered mental status and a blood sugar of 29 , hemoglobin of 6.5 from a baseline of 9, thrombocytopenia of 84 from baseline of 200, he started on dextrose ordered 2 units of pack red blood cells referred to the hospitalist for admission. Patient is a poor historian given his hypoglycemia having Accu-Cheks every hour on D5 half-normal saline. Hospital Course Hospital Course: The patient was on [facility] level care initially. He was first admitted for GI bleed. His counts did drop necessitating transfusion. He underwent upper endoscopy which was unremarkable. Because of his failing respiratory status, it was felt that colonoscopy will be deferred unless he suffered profuse bleeding. His ELIQUIS was stopped. Was also stopped. No further bleeding occurred. Unfortunately he had further decompensation in his respiratory status. Pulmonology consult was requested and it was determined that since the patient had further decompensation on bilevel Pap that he should be transferred to the ICU for impending intubation. In the ICU, surprisingly, the patient continued to do well. Maintain on bilevel Pap he stayed in the ICU for 48 hours. He was eventually able to be weaned down to high flow nasal cannula. During his admission he was aggressively diuresed with Lasix drip. Cardiology service followed along. Recent slow progress with getting fluid off. Overall he did quite well with improvement in his renal status. He was able to be maintained off of bilevel Pap 4. Of 72 hours. Was felt fit for discharge. Physical Exam Vital Signs: Temp Pulse Resp BP Pulse Ox 97.9 F 58 L 20 127/52 H 99 10/14/16 07:48 10/14/16 07:48 10/14/16 07:48 10/14/16 07:48 10/14/16 07:48 Intake & Output 10/13/16 10/14/16 10/15/16 06:59 06:59 06:59 Intake Total 1656 1005 Output Total 2725 693 Balance -1069 312 Weight 111.5 kg 117 kg PHYSICAL EXAM: GENERAL: This is a well-developed well-nourished morbidly obese - [place] male resting on nasal cannula in no acute distress. HEART: Irregular rate and rhythm. soft 1/6 murmurs. No rubs or gallops. LUNGS: Clear anteriorly with equal rise and fall of the chest. Off of BiPAP ABDOMEN: Soft, nontender, nondistended obese with normoactive bowel sounds EXTREMITIES: No clubbing cyanosis. Edema much improved. It seems to have resolved and his arms. The skin is loose. Trace to 1+ Edema now in the lower extremities. overall improved. peripheral pulses difficult to palpate. Wound VAC in place on the right lateral foot. NEURO: Awake, alert, Cranial nerves II through XII grossly intact. SKIN: Brawny texture in the lower extremities consistent with peripheral vascular disease bilaterally PSYCH: Normal affect. Results Laboratory Results: 10/14/16 03:33 10/14/16 03:33 10/13/16 10/14/16 10/14/16 20:15 03:33 03:33 WBC 5.8 RBC 3.44 L Hgb 9.1 L Hct 28.0 L MCV 82 MCH 26.4 L MCHC 32.3 RDW 19.2 H Plt Count 234 Seg Neutrophils % 69.3 Lymphocytes % 17.2 Monocytes % 8.9 Eosinophils % 3.1 Basophils % 1.5 Absolute Neutrophils 4.0 Absolute Lymphocytes 1.0 Absolute Monocytes 0.5 Absolute Eosinophils 0.2 Absolute Basophils 0.1 Sodium 139.0 140.5 Potassium 3.9 4.0 Chloride 87 L 87 L Carbon Dioxide 44 H* 44 H* Anion Gap 8 10 BUN 30 H 30 H Creatinine 1.91 H 1.87 H Est GFR ( Amer) 41 L 42 L Est GFR (Non-Af Amer) 34 L 35 L Glucose 160 H 104 Calcium 8.9 9.0 Magnesium 2.2 10/12/16 14:12 Daniels Catheter Urine Culture - Final C.albicans/C.dubliniensis 10/04/16 10/04/16 10/04/16 04:30 06:25 11:25 Creatine Kinase 43 L 37 L CK-MB (CK-2) 2.68 Troponin I 0.069 NT-Pro-B Natriuret Pep 10/04/16 10/04/16 10/04/16 11:25 18:25 18:25 Creatine Kinase 47 L CK-MB (CK-2) 2.53 3.51 Troponin I 0.065 0.067 NT-Pro-B Natriuret Pep 10/05/16 10/07/16 10/10/16 09:00 05:25 06:15 Creatine Kinase CK-MB (CK-2) Troponin I 0.077 NT-Pro-B Natriuret Pep 73965 H 41719 H 10/12/16 13:38 Creatine Kinase CK-MB (CK-2) Troponin I NT-Pro-B Natriuret Pep 5250 H Impressions: Chest X-Ray 10/12/16 00:00 IMPRESSION: Chronic congestive heart failure and pulmonary edema without significant improvement. Transfer Plan - Disposition Transfer Plan: Follow-up with PCP in 1 week Diet is cardiac/diabetic with a 2 L fluid restriction. PT/OT to evaluate and treat. Continue wound care with wound VAC Continue chronic indwelling Daniels Activity out of bed to chair daily - Time Spent with Patient Time spent with patient: Greater than 30 Minutes Qualifiers PATEINT BEING DISCHARGED WITH ANY OF THE FOLLOWING DIAGNOSIS?: Heart Failure VTE patient discharged on overlapping Therapy?: No Reason(s) for not prescribing Overlap Therapy:: Medical Contraindication HF Pt being discharged on ACEI for LVEF less than 40%?: No Reason(s) for not prescribing ACEI:: Medical Contraindication HF Pt being discharged on ARBS for LVEF less than 40%?: No Reason(s) for not prescribing ARBS:: Medical Contraindication HF Pt with Afib discharged with Warfarin?: No Reason(s) for not prescribing Warfarin:: Medical Contraindication HF Pt discharged on evidence-based Beta Arturo:: Yes Plan Time Spent: Greater than 30 Minutes
[2016-10-14 11:38] LABS: BAND NEUTROPHILS % (MANUAL) 3 % (3-5)
[2016-10-14] MEDS: TIOTROPIUM BROMIDE DPI 5 CAP/KIT (18 MCG/CAP) IH SCH (11:48)
[2016-10-14 16:42] VITALS: BP 120/47
--- NOTE | 2016-10-14 19:12 | PDOC PROGRESS REPORT ---
Subjective Progress Note for:: 10/14/16 Subjective:: Patient seen this morning. Patient seems stronger. He is expressing himself a whole lot with loud voice. His respiratory status is improved with improved shortness of breath. Patient however has not ambulated much. Pt is denying any chest arm or neck discomfort. Patient denying any PND, orthopnea. Patient denying any fever chills. Patient denying any other significant discomfort. Patient is maintaining atrial flutter fibrillation. Nonsustained run of wide- complex tachycardia noted again asymptomatic. Review of systems: Rest review of systems negative. A 12-lead EKG was performed because of recurrent arrhythmias. It showed atrial flutter with 4-1 conduction, no acute ST-T wave changes noted. A chest x-ray was also ordered but did not get done by the time of this dictation. A BNP level obtained 2 days ago shows marked improved. Electrolytes reviewed were noted to be satisfactory. Hemoglobin is stable. Medications: Medications have been reviewed. Physical Exam Vital Signs: Temp Pulse Resp BP Pulse Ox 98.2 F 58 L 16 120/47 L 100 10/14/16 16:19 10/14/16 16:19 10/14/16 16:19 10/14/16 16:19 10/14/16 16:49 Intake & Output 10/13/16 10/14/16 10/15/16 06:59 06:59 06:59 Intake Total 1656 1005 237 Output Total 2725 693 300 Balance -1069 312 -63 Weight 111.5 kg 117 kg Exam: GENERAL: well-nourished and in no acute distress. Alert and oriented x3 HEAD: Atraumatic, normocephalic. EYES: Pupils equal round and reactive to light, extraocular movements intact, sclera anicteric, conjunctiva are normal. ENT: TMs normal, nares patent, oropharynx clear without exudates. Moist mucous membranes. No oral ulcerations or bleeding gums noted NECK: supple without lymphadenopathy. Trachea is central. No cervical or axillary lymphadenopathy noted. Carotids are 2+, JVD WNL LUNGS: Respiration seems nonlabored, no significant accessory muscle action noted. Few bibasilar crackles and wheezing noted. These are much improved than yesterday. CHEST: Palpation of the chest wall shows no significant chest wall tenderness. No other significant abnormalities noted. 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 ABDOMEN: Soft, no significant tenderness appreciated, normoactive bowel sounds. No guarding, no rebound. No rigidity noted . No masses appreciated. EXTREMITIES: Pedal pulses are 1-2+, no calf tenderness noted. No clubbing or cyanosis.trace to 1+ pedal edema noted NEUROLOGICAL: Focused neurological exam showed no significant neurologic deficit. Normal speech, no focal weakness appreciated. PSYCH: Normal mood, normal affect. Judgment and insight within normal limits. SKIN: No significant ecchymosis, rash, ulcerations or signs of pruritus noted. On intermittent dermatitis changes noted in both lower extremity. MUSCULOSKELETAL EXAM: No significant joint swelling noted. Results Laboratory Results: 10/14/16 03:33 10/14/16 03:33 10/11/16 10/13/16 10/14/16 06:05 20:15 03:33 WBC 6.1 RBC 3.21 L Hgb 8.7 L Hct 26.3 L MCV 82 MCH 27.1 MCHC 33.2 RDW 20.3 H Plt Count 163 Seg Neutrophils % Lymphocytes % Monocytes % Eosinophils % Basophils % Absolute Neutrophils Absolute Lymphocytes Absolute Monocytes Absolute Eosinophils Absolute Basophils Sodium 139.0 140.5 Potassium 3.9 4.0 Chloride 87 L 87 L Carbon Dioxide 44 H* 44 H* Anion Gap 8 10 BUN 30 H 30 H Creatinine 1.91 H 1.87 H Est GFR ( Amer) 41 L 42 L Est GFR (Non-Af Amer) 34 L 35 L Glucose 160 H 104 Calcium 8.9 9.0 Magnesium 2.2 10/14/16 03:33 WBC 5.8 RBC 3.44 L Hgb 9.1 L Hct 28.0 L MCV 82 MCH 26.4 L MCHC 32.3 RDW 19.2 H Plt Count 234 Seg Neutrophils % 69.3 Lymphocytes % 17.2 Monocytes % 8.9 Eosinophils % 3.1 Basophils % 1.5 Absolute Neutrophils 4.0 Absolute Lymphocytes 1.0 Absolute Monocytes 0.5 Absolute Eosinophils 0.2 Absolute Basophils 0.1 Sodium Potassium Chloride Carbon Dioxide Anion Gap BUN Creatinine Est GFR ( Amer) Est GFR (Non-Af Amer) Glucose Calcium Magnesium 10/12/16 14:12 Daniels Catheter Urine Culture - Final C.albicans/C.dubliniensis 04/14/17 04/14/17 04/14/17 04:30 06:25 11:25 Creatine Kinase 43 L 37 L CK-MB (CK-2) 2.68 Troponin I 0.069 NT-Pro-B Natriuret Pep 10/04/16 10/04/16 10/04/16 11:25 18:25 18:25 Creatine Kinase 47 L CK-MB (CK-2) 2.53 3.51 Troponin I 0.065 0.067 NT-Pro-B Natriuret Pep 10/05/16 10/07/16 10/10/16 09:00 05:25 06:15 Creatine Kinase CK-MB (CK-2) Troponin I 0.077 NT-Pro-B Natriuret Pep 26963 H 00130 H 10/12/16 13:38 Creatine Kinase CK-MB (CK-2) Troponin I NT-Pro-B Natriuret Pep 5250 H Impressions: Chest X-Ray 10/12/16 00:00 IMPRESSION: Chronic congestive heart failure and pulmonary edema without significant improvement. Assessment & Plan - Diagnosis (1) NSVT (nonsustained ventricular tachycardia) Is this a current diagnosis for this admission?: Yes (2) Wide-complex tachycardia Is this a current diagnosis for this admission?: Yes (3) Acute on chronic diastolic (congestive) heart failure Is this a current diagnosis for this admission?: Yes (4) Respiratory failure Qualifiers: Chronicity: acute on chronic Respiratory failure complication: hypoxia and hypercapnia Qualified Code(s): J96.21 - Acute and chronic respiratory failure with hypoxia Is this a current diagnosis for this admission?: Yes (5) Hypertension Qualifiers: Hypertension type: essential hypertension Qualified Code(s): I10 - Essential (primary) hypertension Is this a current diagnosis for this admission?: Yes (6) Atrial fibrillation Qualifiers: Atrial fibrillation type: chronic Qualified Code(s): I48.2 - Chronic atrial fibrillation Is this a current diagnosis for this admission?: Yes (7) COPD (chronic obstructive pulmonary disease) Qualifiers: COPD type: unspecified COPD Qualified Code(s): J44.9 - Chronic obstructive pulmonary disease, unspecified Is this a current diagnosis for this admission?: Yes (8) Chronic kidney disease (CKD) Qualifiers: Chronic kidney disease stage: stage 4 (severe) Qualified Code(s): N18.4 - Chronic kidney disease, stage 4 (severe) Is this a current diagnosis for this admission?: Yes (9) Obstructive sleep apnea Is this a current diagnosis for this admission?: Yes (10) Thrombocytopenia Is this a current diagnosis for this admission?: Yes (11) Anemia due to acute blood loss Is this a current diagnosis for this admission?: Yes - Notes Notes: Nonsustained ventricular tachycardia: Asymptomatic, no sustained run, I feel these are wide-complex tachycardia from aberrant conduction. Patient advised to report any sustained palpitations, syncope, near syncope. Patient will be considered for event monitor as an outpatient. Acute on chronic diastolic heart failure with significant contribution from right heart failure: This is improved. Patient will benefit from regular cardiology follow-up. Patient will also benefit from salt and fluid restriction and these were explained to the patient. Hypertension: This is well controlled. Atrial fibrillation: Currently on rate control. Not on chronic anticoagulation due to anemia. This will be considered as an outpatient if patient hemoglobin remained stable. COPD: This has improved. Currently stable. Chronic kidney disease: Stable. Obstructive sleep apnea: Patient to receive nightly bilevel therapy. Patient being followed by repairing calibrator. Anemia: Currently stable. To be worked up further by primary care M.D./ computer equipment installer etc. Case discussed with Dr. Rubio - Time Time with patient: Greater than 35 minutes - CODE STATUS was discussed, patient remains full code. Surrogate decision-maker unchanged. Multiple medical problems were addressed.More than 50% of the time spent coordinating care, discussing management plans with involved caregivers. Management plans discussed with involved personnels. Medical decision making was of moderate to high complexity, patient's has multiple severe comorbidities. Patient has been stable after discussion with Dr. Rubio and since cardiology services changing, have signed off patient. Medications reviewed and adjusted accordingly: Yes
== END 2016-10-14 17:50 | DRG 377 ==
LOC: ER 01:54 → EH 04:59 → UNDOADMIN 05:12 → ICU 10:10 → 3W 10-04 00:28 → ICU 10-09 14:35 → 3N 10-12 01:37
PROVIDERS: ADMIT Internal Medicine; ATTEND Internal Medicine
PROC: 30233N1 Transfusion of Nonautologous Red Blood Cells into Peripheral Vein, Percutaneous Approach (ICD-10-PCS; principal; 2016-10-03)
PROC: 0DB68ZX Excision of Stomach, Via Natural or Artificial Opening Endoscopic, Diagnostic (ICD-10-PCS; 2016-10-04)
DX: K92.2 Gastrointestinal hemorrhage, unspecified (principal); I50.33 Acute on chronic diastolic (congestive) heart failure; J96.21 Acute and chronic respiratory failure with hypoxia; I13.0 Hypertensive heart and chronic kidney disease with heart failure and stage 1 through stage 4 chronic kidney disease, or unspecified chronic kidney disease; N18.4 Chronic kidney disease, stage 4 (severe); M86.571 Other chronic hematogenous osteomyelitis, right ankle and foot; D62 Acute posthemorrhagic anemia; I48.92 Unspecified atrial flutter; N17.9 Acute kidney failure, unspecified; N39.0 Urinary tract infection, site not specified; I48.2 Chronic atrial fibrillation; J44.9 Chronic obstructive pulmonary disease, unspecified; E11.22 Type 2 diabetes mellitus with diabetic chronic kidney disease; E11.649 Type 2 diabetes mellitus with hypoglycemia without coma; D69.59 Other secondary thrombocytopenia; T36.8X5A Adverse effect of other systemic antibiotics, initial encounter; E11.621 Type 2 diabetes mellitus with foot ulcer; L97.519 Non-pressure chronic ulcer of other part of right foot with unspecified severity; E11.69 Type 2 diabetes mellitus with other specified complication; G47.33 Obstructive sleep apnea (adult) (pediatric); Z16.21 Resistance to vancomycin; E66.01 Morbid (severe) obesity due to excess calories; K92.1 Melena; R00.0 Tachycardia, unspecified; B96.89 Other specified bacterial agents as the cause of diseases classified elsewhere; Z68.36 Body mass index [BMI] 36.0-36.9, adult; Z79.4 Long term (current) use of insulin; Z79.82 Long term (current) use of aspirin; Z79.01 Long term (current) use of anticoagulants; Z79.51 Long term (current) use of inhaled steroids; Z79.52 Long term (current) use of systemic steroids; Z79.899 Other long term (current) drug therapy
CPT/HCPCS: 36415; 36430; 36600; 43239; 71010; 80048; 80053; 80202; 81001; 82272; 82525; 82550; 82553; 82607; 82746; 82803; 82962; 83540; 83735; 83880; 84100; 84439; 84443; 84481; 84484; 85025; 85027; 85362; 85379; 85384; 85610; 85730; 86850; 86900; 86901; 86920; 87086; 88305; 88342; 93005; 93010; 94640; 94660; 96374; 99291; J0171; J0360; J0743; J0878; J1200; J1610; J1815; J1940; J2250; J2310; J2405; J3010; J3370; J3480; J3490; J7050; J7060; J7620; P9016; P9047; S0164

== ENCOUNTER 2016-11-27 06:11 | Emergency (ER) | payer MEDICARE, OTHER ==
--- NOTE | 2016-11-27 06:47 | ER Document Report ---
ED General <DIMITRIOS SON - Last Filed: 11/27/16 06:53> - General Mode of Arrival: Medic Information source: Patient, [facility] Records TRAVEL OUTSIDE OF THE U.S. IN LAST 30 DAYS: No - HPI Patient complains to provider of: PICC Line Problem Onset: This morning Onset/Duration: Sudden Quality of pain: No pain Associated symptoms: None <RAMAN YEH - Last Filed: 11/27/16 07:03> - General Chief Complaint: Dialysis Catheter Problem Stated Complaint: PICC Line Problem Time Seen by Provider: 11/27/16 06:28 Notes: Patient is a 81-year-old male presenting to the emergency department from [facility] due to concerns that his PICC line may be dislodged. Patient denies any symptoms, states that he feels fine and wants to go back to the senior care so he can get his breakfast of grits and eggs. Patient does not know how long the PICC line needs to stay in place. (RAMAN YEH) - Related Data Allergies/Adverse Reactions: PPD black rubber mix Allergy (Verified 08/05/16 00:06) Past Medical History - General Information source: Patient, [facility] Records - Social History Smoking Status: Unknown if Ever Smoked Family History: Reviewed & Not Pertinent, CAD, CVA, DM - Past Medical History Cardiac Medical History: Reports: Hx Atrial Fibrillation, Hx Congestive Heart Failure - Diastolic, Hx Hypercholesterolemia, Hx Hypertension Pulmonary Medical History: Reports: Hx COPD, Hx Respiratory Failure, Hx Sleep Apnea Endocrine Medical History: Reports: Hx Diabetes Mellitus Type 2 Malignancy Medical History: Reports Hx Prostate Cancer Psychiatric Medical History: Reports: Hx Depression Infectious Medical History: Reports: Hx MRSA, Hx VRE Past Surgical History: Reports: Hx Nose Surgery - WHILE IN SERVICES, Hx Orthopedic Surgery - Right fifth metatarsal amputation, Other - Nasal surgery many years ago while in the [employer]. - Immunizations Hx Diphtheria, Pertussis, Tetanus Vaccination: Yes Hx Pneumococcal Vaccination: 06/23/16 <RAMAN YEH - Last Filed: 11/27/16 07:03> Review of Systems - Review of Systems Constitutional: No symptoms reported EENT: No symptoms reported Cardiovascular: No symptoms reported Respiratory: No symptoms reported Gastrointestinal: No symptoms reported Genitourinary: No symptoms reported Male Genitourinary: No symptoms reported Musculoskeletal: No symptoms reported Skin: See HPI, Other - PICC line partially moved Hematologic/Lymphatic: No symptoms reported Neurological/Psychological: No symptoms reported <RAMAN YEH - Last Filed: 11/27/16 07:03> Physical Exam - General General appearance: Appears well, Alert In distress: None - HEENT Head: Normocephalic, Atraumatic Eyes: Normal Pupils: PERRL - Respiratory Respiratory status: No respiratory distress Chest status: Nontender Breath sounds: Normal - Cardiovascular Rhythm: Regular - Abdominal Inspection: Obese Tenderness: Nontender - Back Back: Normal, Nontender - Extremities General lower extremity: Normal inspection, Nontender Arm: Other - PICC line in left arm has been slightly pulled, distance from skin to hub is 10 cm now. - Neurological Neuro grossly intact: Yes Cognition: Normal Orientation: AAOx4 Bren Coma Scale Eye Opening: Spontaneous [place] Coma Scale Verbal: Oriented Bren Coma Scale Motor: Obeys Commands Bren Coma Scale Total: 15 Speech: Normal - Psychological Associated symptoms: Normal affect, Normal mood - Skin Skin Temperature: Warm Skin Moisture: Dry Skin Color: Normal <RAMAN YEH - Last Filed: 11/27/16 07:03> - Vital signs Vitals: Temp Pulse Resp BP Pulse Ox 97.3 F 60 20 165/62 H 98 11/27/16 06:16 11/27/16 06:16 11/27/16 06:16 11/27/16 06:16 11/27/16 06:16 Course - Diagnostic Test Radiology reviewed: Image reviewed, Reports reviewed - Chest x-ray shows the tip of the PICC line remains well in the chest, is 10 cm pulled back from its previous location. <DIMITRIOS OSN - Last Filed: 11/27/16 06:53> - Consults Dr. Velasco Time consulted: 06:50 - Discussed patient's case, Dr. Velasco does not believe it to be necessary to change PICC line at this time. <RAMAN YEH - Last Filed: 11/27/16 07:03> - Vital Signs Vital signs: Temp Pulse Resp BP Pulse Ox 97.3 F 60 20 165/62 H 98 11/27/16 06:16 11/27/16 06:16 11/27/16 06:16 11/27/16 06:16 11/27/16 06:16 Discharge <DIMITRIOS SON - Last Filed: 11/27/16 06:53> <RAMAN YEH - Last Filed: 11/27/16 07:03> - Discharge Clinical Impression: PICC (peripherally inserted central catheter) in place Disposition: HOME, SELF-CARE Additional Instructions: The PICC line was partially pulled out, about 10 cm. It is still in adequate position and can continue to be used. Follow-up with your doctor as needed. Referrals: SUDEEP CHEUNG MD [Primary Care Provider] - 11/27/16 Scribe Attestation: 11/27/16 06:54 I personally performed the services described in the documentation, reviewed and edited the documentation which was dictated to the scribe in my presence, and it accurately records my words and actions. (DIMITRIOS SON) Scribe Documentation - Scribe Written by Kevan:: Kevan Cunningham, 11/27/2016 0644 acting as scribe for :: Arely <RAMAN YEH - Last Filed: 11/27/16 07:03>
--- NOTE | 2016-11-27 06:54 | RADIOLOGY REPORT (SQ) ---
EXAM DESCRIPTION: CHEST SINGLE VIEW COMPLETED DATE/TIME: 11/27/2016 6:42 am REASON FOR STUDY: picc placement COMPARISON: 10/12/2016. EXAM PARAMETERS: NUMBER OF VIEWS: One view. TECHNIQUE: Single frontal radiographic view of the chest acquired. RADIATION DOSE: NA LIMITATIONS: None. FINDINGS: LUNGS AND PLEURA: Moderate lung volumes. Mild central pulmonary edema pattern. MEDIASTINUM AND HILAR STRUCTURES: No masses. Contour normal. HEART AND VASCULAR STRUCTURES: Moderate enlargement of the cardiac silhouette. BONES: No acute findings. HARDWARE: Left PICC catheter tip in the proximal left brachiocephalic vein ; consider 11 cm advanceme nt. OTHER: No other significant finding. IMPRESSION: Mild -early CHF pattern. Differential diagnosis includes pneumonia.Left PICC catheter t ip in the proximal left brachiocephalic vein ; consider 11 cm advancement. TECHNICAL DOCUMENTATION: JOB ID: [id number]
[2016-11-27 09:58] VITALS: BP 138/61
== END 2016-11-27 09:50 | disposition home or self-care (01) ==
LOC: ER 06:11
DX: Z45.2 Encounter for adjustment and management of vascular access device (principal); I10 Essential (primary) hypertension; J44.9 Chronic obstructive pulmonary disease, unspecified; E11.9 Type 2 diabetes mellitus without complications; Z86.14 Personal history of Methicillin resistant Staphylococcus aureus infection; Z85.46 Personal history of malignant neoplasm of prostate; Z91.048 Other nonmedicinal substance allergy status
CPT/HCPCS: 71010; 99284

== ENCOUNTER → 2016-11-28 | Outpatient (CLI) | payer MEDICARE, OTHER ==
[2016-11-28 13:10] LABS: ANION GAP 9 (5-19); BLOOD UREA NITROGEN 73 mg/dL (7-20); CALCIUM 9.4 mg/dL (8.4-10.2); CARBON DIOXIDE 32 mmol/L (22-30); CHLORIDE 93 mmol/L (98-107); CREATININE RESULT 1.89 mg/dL (0.52-1.25); GLUCOSE 158 mg/dL (75-110); POTASSIUM 4.2 mmol/L (3.6-5.0); SODIUM 133.8 mmol/L (137-145)
[2016-11-28 13:36] LABS: APPEARANCE,URINE CLEAR; GLUCOSE, URINE NEGATIVE (NEGATIVE)
[2016-11-28 13:37] LABS: BILIRUBIN,URINE NEGATIVE (NEGATIVE); KETONES,URINE NEGATIVE (NEGATIVE); LEUKOCYTE ESTERASE,URINE NEGATIVE (NEGATIVE); NITRITE,URINE POSITIVE (NEGATIVE); PROTEIN,URINE 30 mg/dL (NEGATIVE); URINE SPECIFIC GRAVITY 1.009
[2016-11-28 13:38] LABS: HYALINE CASTS, URINE RARE /LPF; RBC,URINE NONE SEEN /HPF; WBC,URINE NONE SEEN /HPF
[2016-11-29 07:59] LABS: HEMATOCRIT 38.9 % (37.9-51.0); HEMOGLOBIN 12.5 g/dL (13.5-17.0); HGB HCT DIFFERENCE -1.4; MEAN CORPUSCULAR HEMOGLOBIN 27.1 pg (27.0-33.4); MEAN CORPUSCULAR HGB CONC 32.1 g/dL (32.0-36.0); MEAN CORPUSCULAR VOLUME 84 fl (80-97); RED BLOOD COUNT 4.61 10^6/uL (4.35-5.55); RED CELL DISTRIBUTION WIDTH 22.2 % (11.5-14.0); WHITE BLOOD COUNT 5.2 10^3/uL (4.0-10.5)
== END ==
LOC: LAB 12:25
PROVIDERS: ATTEND Internal Medicine
DX: D50.9 Iron deficiency anemia, unspecified (principal); A49.02 Methicillin resistant Staphylococcus aureus infection, unspecified site; M62.82 Rhabdomyolysis; N18.9 Chronic kidney disease, unspecified; M86.9 Osteomyelitis, unspecified
CPT/HCPCS: 36415; 80048; 81001; 85025; 85027

== ENCOUNTER 2016-12-24 13:01 | Inpatient (IN) | payer MEDICARE, OTHER ==
--- NOTE | 2016-12-24 13:24 | ER Document Report ---
ED General - General Stated Complaint: ALTERED MENTAL STATUS Time Seen by Provider: 12/24/16 13:12 Mode of Arrival: Stretcher Information source: Patient TRAVEL OUTSIDE OF THE U.S. IN LAST 30 DAYS: No - HPI Patient complains to provider of: Altered mental status Onset: Yesterday Onset/Duration: Gradual Quality of pain: Achy Associated symptoms: Weakness Notes: Patient is a 81-year-old male sent from local long-term for possible change in mental status, they do report patient did not eat well yesterday, today they noted his blood sugar to be low, measured at 66 at the long-term, he was given some juice and a repeat blood sugar was 124, they report that he normally runs in the 400 range and so they were concerned about him prompting them to send him to the emergency room, patient does report some abdominal cramping, with nausea and a decreased appetite - Related Data Allergies/Adverse Reactions: PPD black rubber mix Allergy (Verified 08/05/16 00:06) Home Medications: Current Home Medications Apixaban [Eliquis 2.5 mg Tablet] 2.5 mg PO BID 12/24/16 [History] B Complex & C No.20/Folic Acid [[place]ow Caps Softgel] 1 mg PO DAILY 12/24/16 [ History] Citalopram Hydrobromide [Celexa 20 mg Tablet] 20 mg PO DAILY 12/24/16 [History] Collagenase Clostridium Hist. [Santyl Ointment 30 gm] 1 applic TP DAILY [History] Insulin Glargine,Hum.rec.anlog [Lantus Insulin 100 Unit/mL] 35 unit SUBCUT Q12 12/24/16 [History] Tiotropium [place] [Spiriva Handihaler 5 Cap/Kit (18 Mcg/Cap)] 1 cap IH DAILY [History] Past Medical History - General Information source: Patient - Social History Smoking Status: Unknown if Ever Smoked Family History: Reviewed & Not Pertinent, CAD, CVA, DM - Past Medical History Cardiac Medical History: Reports: Hx Atrial Fibrillation, Hx Congestive Heart Failure - Diastolic, Hx Hypercholesterolemia, Hx Hypertension Denies: Hx DVT, Hx Heart Attack, Hx Pulmonary Embolism Pulmonary Medical History: Reports: Hx COPD, Hx Respiratory Failure, Hx Sleep Apnea Neurological Medical History: Denies: Hx Seizures Endocrine Medical History: Reports: Hx Diabetes Mellitus Type 1, Hx Diabetes Mellitus Type 2. Denies: Hx Hyperthyroidism, Hx Hypothyroidism Malignancy Medical History: Reports Hx Prostate Cancer GI Medical History: Denies: Hx Cirrhosis, Hx Gastroesophageal Reflux Disease, Hx Hepatitis Musculoskeltal Medical History: Denies Hx Arthritis Psychiatric Medical History: Reports: Hx Depression Infectious Medical History: Reports: Hx MRSA, Hx VRE. Denies: Hx Hepatitis Past Surgical History: Reports: Hx Nose Surgery - WHILE IN SERVICES, Hx Orthopedic Surgery - Right fifth metatarsal amputation, Other - Nasal surgery many years ago while in the [employer] Denies: Hx Adenoidectomy - Immunizations Hx Diphtheria, Pertussis, Tetanus Vaccination: Yes Hx Pneumococcal Vaccination: 06/23/16 Review of Systems - Review of Systems Constitutional: Weakness EENT: No symptoms reported Cardiovascular: No symptoms reported Respiratory: No symptoms reported Gastrointestinal: See HPI Genitourinary: No symptoms reported Male Genitourinary: No symptoms reported Musculoskeletal: No symptoms reported Skin: No symptoms reported Hematologic/Lymphatic: No symptoms reported Neurological/Psychological: No symptoms reported -: Yes All other systems reviewed and negative Physical Exam - Vital signs Vitals: Temp Pulse Resp BP Pulse Ox 97.1 F 51 L 22 H 132/54 H 98 12/24/16 13:17 12/24/16 13:17 12/24/16 13:17 12/24/16 13:17 12/24/16 13:17 Interpretation: Normal - General General appearance: Alert In distress: None - HEENT Head: Normocephalic, Atraumatic Eyes: Normal Conjunctiva: Normal Extraocular movements intact: Yes Eyelashes: Normal Pupils: PERRL Mucous membranes: Dry Pharynx: Normal Neck: Normal - Respiratory Respiratory status: No respiratory distress Chest status: Nontender Breath sounds: Normal Chest palpation: Normal - Cardiovascular Rhythm: Regular Heart sounds: Normal auscultation Murmur: No - Abdominal Inspection: Normal Distension: No distension Bowel sounds: Normal Tenderness: Tender - Suprapubic, right and lower quadrant tenderness Organomegaly: No organomegaly - Back Back: Normal, Nontender - Extremities General upper extremity: Normal inspection, Nontender, Normal color, Normal ROM , Normal temperature General lower extremity: Normal ROM, Normal temperature, Other - dry appearing with shriveled skin. No: Kojo's sign - Neurological Neuro grossly intact: Yes Cognition: Normal Orientation: AAOx4 [place] Coma Scale Eye Opening: Spontaneous [place] Coma Scale Verbal: Oriented [place] Coma Scale Motor: Obeys Commands [place] Coma Scale Total: 15 Speech: Normal Motor strength normal: LUE, RUE, LLE, RLE Sensory: Normal - Psychological Associated symptoms: Normal affect, Normal mood - Skin Skin Temperature: Warm Skin Moisture: Dry Skin Color: Normal Course - Re-evaluation Re-evalutation: 12/24/16 18:32 With multiple laboratory abnormalities including hyperkalemia, worsening liver function tests, worsening renal function, ultrasound also shows multiple gallstones and possible cholecystitis patient is not a surgical candidate at this point, so therefore was discussed with the hospitalist service who agrees to admit for further evaluation and treatment - Vital Signs Vital signs: Temp Pulse Resp BP Pulse Ox 97.1 F 51 L 17 127/57 H 100 12/24/16 13:17 12/24/16 13:17 12/24/16 17:01 12/24/16 17:01 12/24/16 17:01 - Laboratory Result Diagrams: 12/24/16 13:50 12/24/16 16:54 Laboratory results interpreted by me: 12/24/16 12/24/16 12/24/16 13:50 13:50 14:10 Hgb 13.0 L RDW 19.0 H Plt Count 113 L Seg Neutrophils % 89.0 H Lymphocytes % 6.9 L Sodium 128.5 L Potassium 6.4 H* Chloride 90 L BUN 96 H Creatinine 2.73 H Est GFR ( Amer) 27 L Est GFR (Non-Af Amer) 23 L Glucose 117 H AST 389 H ALT 1066 H Alkaline Phosphatase 247 H Creatine Kinase < 20 L Total Protein Albumin 3.3 L Urine Nitrite POSITIVE H Urine Urobilinogen 2.0 H Ur Leukocyte Esterase LARGE H 12/24/16 16:54 Hgb RDW Plt Count Seg Neutrophils % Lymphocytes % Sodium 127.9 L Potassium 6.4 H* Chloride 90 L BUN 99 H Creatinine 2.49 H Est GFR ( Amer) 30 L Est GFR (Non-Af Amer) 25 L Glucose 198 H AST 308 H ALT 923 H Alkaline Phosphatase 216 H Creatine Kinase < 20 L Total Protein 6.0 L Albumin 3.1 L Urine Nitrite Urine Urobilinogen Ur Leukocyte Esterase - Diagnostic Test Radiology reviewed: Image reviewed, Reports reviewed - EKG Interpretation by Me EKG shows normal: Sinus rhythm Rate: Normal Rhythm: NSR Additional EKG results interpreted by me: 12/24/16 18:33 Peaked T-waves - Transfer of Care Care transferred to following provider: Dr Moncada Discharge - Discharge Clinical Impression: Abnormal liver function tests, Hyperkalemia, Gallstones Acute on chronic renal failure Qualifiers: Acute renal failure type: unspecified Chronic kidney disease stage: unspecified stage Qualified Code(s): N17.9 - Acute kidney failure, unspecified Right foot ulcer Qualifiers: Non-pressure ulcer stage: with necrosis of muscle Qualified Code(s): 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
[2016-12-24 14:02] LABS: ABSOLUTE BASOPHILS # (AUTO) 0.1 10^3/uL (0.0-0.2); ABSOLUTE LYMPHOCYTES (AUTO) 0.6 10^3/uL (0.5-4.7); ABSOLUTE MONOCYTES (AUTO) 0.3 10^3/uL (0.1-1.4); ABSOLUTE NEUT (AUTO) 7.8 10^3/uL (1.7-8.2); BASOPHILS % (AUTO) 0.7 % (0-2); HEMATOCRIT 40.5 % (37.9-51.0); HGB HCT DIFFERENCE -1.5; LYMPHOCYTES % (AUTO) 6.9 % (13-45); MEAN CORPUSCULAR HGB CONC 32.1 g/dL (32.0-36.0); MEAN CORPUSCULAR VOLUME 84 fl (80-97); MONOCYTES % (AUTO) 3.4 % (3-13); RED BLOOD COUNT 4.83 10^6/uL (4.35-5.55); WHITE BLOOD COUNT 8.7 10^3/uL (4.0-10.5)
[2016-12-24 14:19] LABS: ALBUMIN 3.3 g/dL (3.5-5.0); ALKALINE PHOSPHATASE 247 U/L (38-126); ANION GAP 12 (5-19); ASPARTATE AMINO TRANSFERASE 389 U/L (17-59); BILIRUBIN,DIRECT 0.2 mg/dL (0.0-0.4); BILIRUBIN,TOTAL 0.9 mg/dL (0.2-1.3); BLOOD UREA NITROGEN 96 mg/dL (7-20); CALCIUM 8.4 mg/dL (8.4-10.2); CARBON DIOXIDE 27 mmol/L (22-30); CHLORIDE 90 mmol/L (98-107); CREATININE RESULT 2.73 mg/dL (0.52-1.25); GLUCOSE 117 mg/dL (75-110); SODIUM 128.5 mmol/L (137-145); TOTAL PROTEIN 6.3 g/dL (6.3-8.2)
[2016-12-24 14:22] LABS: CREATINE KINASE < 20 U/L (55-170)
[2016-12-24 14:26] LABS: ALANINE AMINOTRANSFERASE 1066 U/L (21-72); POTASSIUM 6.4 mmol/L (3.6-5.0)
[2016-12-24] MEDS ORDERED: DEXTROSE 50%-WATER 25 GM/50 ML DISP.SYRIN IV ONE ×2 (14:29→20:31)
[2016-12-24] MEDS ORDERED: CALCIUM GLUCONATE 1000 MG/10 ML INJ IV ONE ×2 (14:29→20:30)
[2016-12-24] MEDS ORDERED: INSULIN REG, HUMAN 100 UNIT/ML 3 ML VIAL (PYX) IV ONE ×2 (14:29→20:31)
[2016-12-24 14:30] LABS: CREATINE KINASE MB 1.58 ng/mL (<4.55)
--- NOTE | 2016-12-24 14:44 | RADIOLOGY REPORT (SQ) ---
EXAM DESCRIPTION: CHEST PA/LAT COMPLETED DATE/TIME: 12/24/2016 2:35 pm REASON FOR STUDY: cough COMPARISON: 11/27/2016. TECHNIQUE: Frontal and lateral radiographic views of the chest acquired. NUMBER OF VIEWS: Two view. LIMITATIONS: None. FINDINGS: LUNGS AND PLEURA: Patchy airspace disease in the peripheral left lung and lung base. Low lung volumes otherwise. No pneumothorax. No suggestion of significant pleural fluid. MEDIASTINUM AND HILAR STRUCTURES: Stable contours. HEART AND VASCULAR STRUCTURES: Cardiac enlargement. BONES: No acute findings. HARDWARE: None in the chest. OTHER: No other significant finding. IMPRESSION: Mild patchy asymmetric edema or infiltrate in the left lung. Cardiomegaly with low lung volumes generally. TECHNICAL DOCUMENTATION: JOB ID: [id number] [employer]- All Rights Reserved
[2016-12-24 14:46] LABS: TROPONIN I 0.101 ng/mL
[2016-12-24 14:53] LABS: PARTIAL THROMBOPLASTIN TIME 31.2 SEC (23.5-35.8); PROTHROMBIN TIME 14.5 SEC (11.4-15.4)
[2016-12-24 16:36] LABS: APPEARANCE,URINE SLIGHTLY-CLOUDY; BILIRUBIN,URINE NEGATIVE (NEGATIVE); GLUCOSE, URINE NEGATIVE (NEGATIVE); KETONES,URINE NEGATIVE (NEGATIVE); LEUKOCYTE ESTERASE,URINE LARGE (NEGATIVE); NITRITE,URINE POSITIVE (NEGATIVE); PROTEIN,URINE NEGATIVE (NEGATIVE); URINE SPECIFIC GRAVITY 1.009
[2016-12-24] MEDS ORDERED: CEFTRIAXONE RTU 1 GM/D5W 50 ML IV ONE (16:41)
[2016-12-24 17:21] LABS: ALANINE AMINOTRANSFERASE 923 U/L (21-72); ALBUMIN 3.1 g/dL (3.5-5.0); ALKALINE PHOSPHATASE 216 U/L (38-126); ANION GAP 10 (5-19); ASPARTATE AMINO TRANSFERASE 308 U/L (17-59); BILIRUBIN,DIRECT 0.3 mg/dL (0.0-0.4); BILIRUBIN,TOTAL 0.8 mg/dL (0.2-1.3); BLOOD UREA NITROGEN 99 mg/dL (7-20); CALCIUM 8.4 mg/dL (8.4-10.2); CARBON DIOXIDE 28 mmol/L (22-30); CHLORIDE 90 mmol/L (98-107); CREATININE RESULT 2.49 mg/dL (0.52-1.25); GLUCOSE 198 mg/dL (75-110); SODIUM 127.9 mmol/L (137-145)
[2016-12-24 17:29] LABS: CREATINE KINASE < 20 U/L (55-170)
[2016-12-24 17:30] LABS: POTASSIUM 6.4 mmol/L (3.6-5.0)
[2016-12-24 17:32] LABS: CREATINE KINASE MB 1.59 ng/mL (<4.55); TROPONIN I 0.102 ng/mL
--- NOTE | 2016-12-24 17:35 | RADIOLOGY REPORT (SQ) ---
EXAM DESCRIPTION: U/S ABDOMEN LIMITED W/O DOP COMPLETED DATE/TIME: 12/24/2016 5:26 pm REASON FOR STUDY: pain COMPARISON: None. TECHNIQUE: Dynamic and static grayscale images acquired of the abdomen and recorded on PACS. Additio nal selected color Doppler and spectral images recorded. LIMITATIONS: Study is limited due to overlying bowel gas. FINDINGS: PANCREAS: The pancreas could not be visualized due to overlying bowel gas. LIVER: Echotexture is coarse with increased echogenicity consistent with fatty infiltration. LIVER VASCULATURE: Normal blood flow it is identified in the portal vein. GALLBLADDER: Multiple gallstones are identified. There is some mild thickening of the gallbladder wa lls. The possibility of cholecystitis should be considered. No pericholecystic fluid is identified. ULTRASOUND-DETECTED GALEANA'S SIGN: Negative. INTRAHEPATIC DUCTS AND COMMON DUCT: CBD and intrahepatic ducts normal caliber. No filling defects. INFERIOR VENA CAVA: Normal flow. AORTA: No aneurysm. RIGHT KIDNEY: Normal size. Normal echogenicity. No solid or suspicious masses. No hydronephrosis. No calcifications. PERITONEAL AND RIGHT PLEURAL SPACE: No ascites or effusions. OTHER: No other significant finding. IMPRESSION: FATTY INFILTRATION OF THE LIVER. Multiple gallstones are identified. There is some mil d thickening of the gallbladder figueroa. The possibility of cholecystitis should be considered. Other findings as noted above TECHNICAL DOCUMENTATION: JOB ID: [id number]- All Rights Reserved
[2016-12-24] MEDS ORDERED: NORMAL SALINE 1000 ML 1,000 ML IV PRN (17:41)
[2016-12-24] MEDS ORDERED: FERROUS SULFATE 325 MG TABLET PO SCH (18:00)
[2016-12-24] MEDS ORDERED: ONDANSETRON 4 MG TAB.RAPDIS PO PRN (18:15)
[2016-12-24] MEDS ORDERED: ALBUTEROL SULFATE 0.083% NEB 2.5 MG/3 ML AMPUL NEB PRN (18:15)
[2016-12-24] MEDS ORDERED: ONDANSETRON HCL INJ/PF 4 MG/2 ML SDV IV PRN (18:15)
[2016-12-24] MEDS ORDERED: ACETAMINOPHEN 325 MG TABLET PO PRN (18:15)
[2016-12-24] MEDS ORDERED: OXYCODONE-ACETAMINOPHEN 5-325 MG TABLET PO PRN (18:20)
[2016-12-24] MEDS ORDERED: GLUCAGON,HUMAN RECOMB 1 MG INJ IM PRN (18:22)
[2016-12-24] MEDS ORDERED: DEXTROSE 40% GEL 15 GM TUBE PO PRN ×2 (18:22)
[2016-12-24] MEDS ORDERED: DEXTROSE 50%-WATER 25 GM/50 ML DISP.SYRIN IV PRN (18:22)
[2016-12-24] MEDS ORDERED: INSULIN LISPRO 100 UNIT/ML 3 ML VIAL SUBCUT PRN (18:22)
--- NOTE | 2016-12-24 18:38 | PDOC H&P ---
History of Present Illness Admission Date/PCP: 12/24/16 17:49 SUDEEP CHEUNG Patient complains of: Eating less History of Present Illness: CHARLA WEBB JR is a 81 year old male located past medical history including diabetes and congestive heart failure who presents from the half-way. The patient reports over the last 3 days he had crampy lower abdominal pain in the left lower quadrant and also has had decreased p.o. intake. The patient has been on diuretics for treatment of his congestive heart failure. He was sent over and was found to have hyperkalemia along with acute on chronic renal failure. The patient denies having any fevers or chills. An abdominal ultrasound showed him to have gallstones although he does not really have much in the way of right upper quadrant pain. Most of his pain on the time of my exam is the left lower abdominal area. He does report some urinary frequency and dysuria over the last day. The patient has been on bumex, Zaroxolyn and Spironolactone for treatment of his congestive heart failure. He also does report having some loose bowel movements over the last 2 days. Certain as to whether there is been any blood in his urine or stool as he is unable to see very well. Past Medical History Cardiac Medical History: Reports: Atrial Fibrillation, Congestive Heart Failure - Diastolic, Hyperlipidema, Hypertension Denies: DVT, Myocardial Infarction, Pulmonary Embolism Pulmonary Medical History: Reports: Chronic Obstructive Pulmonary Disease (COPD) , Respiratory Failure, Sleep Apnea Neurological Medical History: Denies: Seizures Endocrine Medical History: Reports: Diabetes Mellitus Type 2 Denies: Hyperthyroidism, Hypothyroidism Renal/ Medical History: Reports: Chronic Kidney Disease Malignancy Medical History: Reports: Other - Prostate cancer GI Medical History: Denies: Cirrhosis, Gastroesophageal Reflux Disease, Hepatitis Musculoskeltal Medical History: Denies: Arthritis Skin Medical History: Reports: None Psychiatric Medical History: Reports: Depression Hematology: Reports: Anemia Infectious Medical History: Reports: Methicillin-Resistant Staph Aureus, Vancomycin-Resistant Enterococci Past Surgical History Past Surgical History: Reports: Orthopedic Surgery - Right fifth metatarsal amputation, Other - Nasal surgery many years ago while in the [employer]. Social History Information Source: Patient Lives with: Shelter Smoking Status: Former Smoker Frequency of Alcohol Use: None Hx Recreational Drug Use: No Drugs: None Hx Prescription Drug Abuse: No - Advance Directive Resuscitation Status: Full Code Surrogate healthcare decision maker:: His nephew has the power of associate attorney Family History Family History: CAD, CVA, DM Parental Family History Reviewed: Yes Children Family History Reviewed: No Sibling(s) Family History Reviewed.: No Medication/Allergy Home Medications: B Complex & C No.20/Folic Acid [Renal Caps Softgel] 1 cap PO DAILY 07/03/16 Ergocalciferol (Vitamin D2) [Vitamin D2] 50,000 units PO ABDALLA 07/03/16 Ferrous Sulfate [Feosol 325 mg Tablet] 325 mg PO BID 07/03/16 Isosorbide Mononitrate [Imdur 30 mg Tablet.er] 30 mg PO DAILY 07/03/16 Hydralazine HCl [Apresoline 50 mg Tablet] 100 mg PO Q8 #0 tablet 07/24/16 Aspirin [Adult Low Dose Aspirin EC] 81 mg PO DAILY #30 tablet. 08/13/16 Doxazosin Mesylate [Cardura 4 mg Tablet] 4 mg PO QHS tablet 08/13/16 Epoetin Ernesto [Procrit Inj 20,000 Unit/1 ml Vial (Renal)] 20,000 unit SUBCUT Q7D ml 08/13/16 Insulin Lispro [Humalog Insulin (Lispro) 100 unit/mL] 0 - 12 unit SUBCUT ACHSP PRN unit 08/13/16 Metoprolol Succinate [Toprol Xl 50 mg Tab.sr] 50 mg PO QHS tab.sr.24h 08/13/16 Acetaminophen [Tylenol 325 mg Tablet] 650 mg PO Q4HP PRN 10/03/16 Ipratropium/Albuterol Sulfate [Duoneb 3 ml Ampul] 1 vial NEB Q6 10/03/16 Levalbuterol HCl [Xopenex Neb 1.25 mg/3 ml Ampul] 1.25 mg NEB RTQ4HP PRN Omeprazole 20 mg PO QAM 10/03/16 Calcium Carbonate [Tums Chewable 500 mg Tab.chew] 1,000 mg PO DAILY tab.chew Diltiazem HCl [Cardizem Cd 120 mg Capsule] 120 mg PO Q12 cap.sr.24h 10/14/16 Metolazone [Zaroxolyn 2.5 mg Tablet] 2.5 mg PO BID tablet 10/14/16 Oxycodone HCl/Acetaminophen [Percocet 5-325 mg Tablet] 1 tab PO Q6HP PRN #28 tablet 10/14/16 Phenazopyridine HCl [Pyridium 100 mg Tablet] 100 mg PO Q8A tablet 10/14/16 Spironolactone [Aldactone 25 mg Tablet] 25 mg PO DAILY tablet 10/14/16 Torsemide [Demadex 20 mg Tablet] 20 mg PO DAILY tablet 10/14/16 Apixaban [Eliquis 2.5 mg Tablet] 2.5 mg PO BID 12/24/16 B Complex & C No.20/Folic Acid [Eric Caps Softgel] 1 mg PO DAILY 12/24/16 Citalopram Hydrobromide [Celexa 20 mg Tablet] 20 mg PO DAILY 12/24/16 Collagenase Clostridium Hist. [Santyl Ointment 30 gm] 1 applic TP DAILY Insulin Glargine,Hum.rec.anlog [Lantus Insulin 100 Unit/mL] 35 unit SUBCUT Q12 12/24/16 Tiotropium Monson [Spiriva Handihaler 5 Cap/Kit (18 Mcg/Cap)] 1 cap IH DAILY Allergies/Adverse Reactions: PPD black rubber mix Allergy (Verified 08/05/16 00:06) Review of Systems Constitutional: ABSENT: chills, fever(s), headache(s), night sweats Eyes: ABSENT: visual disturbances Ears: ABSENT: hearing changes Cardiovascular: ABSENT: chest pain, dyspnea on exertion, edema, orthropnea, palpitations Respiratory: ABSENT: cough, hemoptysis Gastrointestinal: PRESENT: abdominal pain - Lower quadrant abdominal pain.. ABSENT: constipation, diarrhea, hematemesis, hematochezia, nausea, vomiting Genitourinary: PRESENT: dysuria Musculoskeletal: ABSENT: joint swelling Integumentary: ABSENT: rash, wounds Neurological: ABSENT: abnormal gait, abnormal speech, confusion, dizziness, focal weakness, syncope Psychiatric: ABSENT: anxiety, depression Endocrine: ABSENT: cold intolerance, heat intolerance, polydipsia, polyuria Hematologic/Lymphatic: ABSENT: easy bleeding, easy bruising Physical Exam Vital Signs: Temp Pulse Resp BP Pulse Ox 97.1 F 51 L 17 127/57 H 100 12/24/16 13:17 12/24/16 13:17 12/24/16 17:01 12/24/16 17:01 12/24/16 17:01 General appearance: PRESENT: no acute distress, obese Head exam: PRESENT: atraumatic, normocephalic Eye exam: PRESENT: conjunctiva pink, EOMI, PERRLA. ABSENT: scleral icterus Ear exam: PRESENT: normal external ear exam Mouth exam: PRESENT: dry mucosa, tongue midline Neck exam: ABSENT: carotid bruit, JVD, lymphadenopathy, thyromegaly Respiratory exam: PRESENT: clear to auscultation cornell. ABSENT: rales, rhonchi, wheezes Cardiovascular exam: PRESENT: irregular rhythm. ABSENT: diastolic murmur, rubs , systolic murmur Vascular exam: PRESENT: normal capillary refill GI/Abdominal exam: PRESENT: normal bowel sounds, soft. ABSENT: distended, guarding, mass, organolmegaly, rebound, tenderness Rectal exam: PRESENT: deferred Extremities exam: ABSENT: calf tenderness, clubbing, pedal edema Neurological exam: PRESENT: alert, awake, oriented to person, oriented to place , oriented to time, oriented to situation, CN II-XII grossly intact. ABSENT: motor sensory deficit Psychiatric exam: PRESENT: appropriate affect Skin exam: PRESENT: dry, intact, warm. ABSENT: cyanosis, rash Results Impressions: Chest X-Ray 12/24/16 13:58 IMPRESSION: Mild patchy asymmetric edema or infiltrate in the left lung. Cardiomegaly with low lung volumes generally. Abdomen Ultrasound 12/24/16 14:34 IMPRESSION: FATTY INFILTRATION OF THE LIVER. Multiple gallstones are identified. There is some mild thickening of the gallbladder figueroa. The possibility of cholecystitis should be considered. Other findings as noted above Assessment & Plan - Diagnosis (1) Acute on chronic renal failure Qualifiers: Acute renal failure type: unspecified Chronic kidney disease stage: unspecified stage Qualified Code(s): N17.9 - Acute kidney failure, unspecified; N18.9 - Chronic kidney disease, unspecified Is this a current diagnosis for this admission?: YesPlan: Has had decreased p.o. intake and has continued with his diuretics. We will hold his diuretics for today and give IV fluids cautiously. He is noted to have hyperkalemia which hopefully will resolve with IV fluids. We have consulted nephrology to evaluate the patient tomorrow. I discussed the possibility of dialysis and the patient reports at this time he would not want dialysis done. (2) Hyperkalemia Is this a current diagnosis for this admission?: YesPlan: Patient's EKG does not show any peaked T waves. Will give IV fluids and monitor closely. Nephrology has been consulted (3) Gallstones Is this a current diagnosis for this admission?: YesPlan: Patient reports a 3 day history of anorexia and abdominal pain. Most of his abdominal pain is in the left lower area. He has a negative Keenan sign. I feel the gallstones most likely are an incidental finding although his liver enzymes are slightly elevated. Will repeat liver enzymes again tomorrow. (4) BPH (benign prostatic hyperplasia) Qualifiers: Lower urinary tract symptom presence: symptoms present Qualified Code(s ): N40.1 - Benign prostatic hyperplasia with lower urinary tract symptoms; R35.0 - Frequency of micturition Is this a current diagnosis for this admission?: Yes (5) Diastolic CHF Is this a current diagnosis for this admission?: YesPlan: Patient is currently volume depleted. We will give IV fluids and watch closely given his history of congestive heart failure. (6) GERD (gastroesophageal reflux disease) Qualifiers: Esophagitis presence: without esophagitis Qualified Code(s): K21.9 - Gastro-esophageal reflux disease without esophagitis Is this a current diagnosis for this admission?: YesPlan: Continue with the [facility]. (7) Gout Qualifiers: Gout site: unspecified site Gout etiology: unspecified cause Chronicity: unspecified Qualified Code(s): M10.9 - Gout, unspecified Is this a current diagnosis for this admission?: YesPlan: asymptomatic (8) Hyperlipidemia Qualifiers: Hyperlipidemia type: unspecified Qualified Code(s): E78.5 - Hyperlipidemia, unspecified Is this a current diagnosis for this admission?: Yes (9) Hypertension Qualifiers: Hypertension type: essential hypertension Qualified Code(s): I10 - Essential (primary) hypertension Is this a current diagnosis for this admission?: YesPlan: We will continue with his antihypertensives except for his diuretic therapy (10) Obesity Qualifiers: Obesity severity: morbid Is this a current diagnosis for this admission?: Yes (11) Osteomyelitis Qualifiers: Osteomyelitis location: foot Laterality: right Qualified Code(s): M86.171 - Other acute osteomyelitis, right ankle and foot Is this a current diagnosis for this admission?: YesPlan: History of osteomyelitis in the right foot. (12) Type 2 diabetes mellitus with hyperglycemia Qualifiers: Diabetes mellitus jail insulin use: unspecified jail insulin use status Qualified Code(s): E11.65 - Type 2 diabetes mellitus with hyperglycemia Is this a current diagnosis for this admission?: YesPlan: Continue with sliding scale insulin. (13) UTI (urinary tract infection) Qualifiers: Urinary tract infection type: site unspecified Is this a current diagnosis for this admission?: YesPlan: Cover with Rocephin. (14) Vitamin D deficiency Is this a current diagnosis for this admission?: Yes (15) Anemia Qualifiers: Anemia type: unspecified type Qualified Code(s): D64.9 - Anemia, unspecified Is this a current diagnosis for this admission?: YesPlan: Likely is anemia of chronic disease given his renal failure. (16) Anticoagulated Is this a current diagnosis for this admission?: YesPlan: Continue with Eliquis for his atrial fibrillation. (17) Atrial fibrillation Qualifiers: Atrial fibrillation type: unspecified Qualified Code(s): I48.91 - Unspecified atrial fibrillation Is this a current diagnosis for this admission?: YesPlan: Is rate controlled. (18) COPD (chronic obstructive pulmonary disease) Qualifiers: COPD type: unspecified COPD Qualified Code(s): J44.9 - Chronic obstructive pulmonary disease, unspecified Is this a current diagnosis for this admission?: YesPlan: Nebulizers as needed (19) Chronic kidney disease (CKD) Qualifiers: Chronic kidney disease stage: stage 4 (severe) Qualified Code(s): N18.4 - Chronic kidney disease, stage 4 (severe) Is this a current diagnosis for this admission?: YesPlan: Patient has stage IV acute on chronic renal therapy (20) Obstructive sleep apnea Is this a current diagnosis for this admission?: YesPlan: Give CPAP nightly - Time Time Spent: 50 to 70 Minutes - Inpatient Certification Medical Necessity: Need Close Monitoring Due to Risk of Patient Decompensation, Need For IV Fluids
--- NOTE | 2016-12-24 20:26 | EKG REPORT ---
SEVERITY:- ABNORMAL ECG - THIRD DEGREE AV BLOCK NONSPECIFIC INTRAVENTRICULAR CONDUCTION DELAY : Confirmed by: Suhail Kaufman MD 24-Dec-2016 20:25:56
[2016-12-24] MEDS: NORMAL SALINE 1000 ML 1,000 ML IV PRN (20:56)
[2016-12-24 21:21] LABS: ANION GAP 10 (5-19); BLOOD UREA NITROGEN 93 mg/dL (7-20); CARBON DIOXIDE 27 mmol/L (22-30); CHLORIDE 91 mmol/L (98-107); GLUCOSE 173 mg/dL (75-110); MAGNESIUM 2.4 mg/dL (1.6-2.3); POTASSIUM 5.9 mmol/L (3.6-5.0); SODIUM 128.4 mmol/L (137-145)
[2016-12-24 21:24] LABS: CALCIUM 8.5 mg/dL (8.4-10.2)
--- NOTE | 2016-12-24 21:34 | EKG REPORT ---
SEVERITY:- ABNORMAL ECG - BRADYCARDIA WITH IRREGULAR RATE 37-54 SECOND DEGREE AVB LEFT HALF OF TRACING, THEN FOLLOWED BY THIRD DEGREE AVB WITH JUNCTIONAL RHYTHM ON R HALF OF TRACING TALL PEAKED T WAVES NOT TYICAL OF HYPERKALEMIA. : Confirmed by: Suhail Kaufman MD 24-Dec-2016 21:33:46
[2016-12-24] MEDS ORDERED: DILTIAZEM HCL 120 MG CAP.SR.24H PO SCH ×2 (22:00)
[2016-12-24] MEDS ORDERED: HYDRALAZINE HCL 50 MG TABLET PO SCH (22:00)
[2016-12-24] MEDS ORDERED: METOPROLOL SUCCINATE 50 MG TAB.SR.24H PO SCH ×2 (22:00)
--- NOTE | 2016-12-24 22:20 | RADIOLOGY REPORT (SQ) ---
EXAM DESCRIPTION: CHEST SINGLE VIEW COMPLETED DATE/TIME: 12/24/2016 10:04 pm REASON FOR STUDY: bradycardia COMPARISON: 12/24/2016 EXAM PARAMETERS: NUMBER OF VIEWS: One view. TECHNIQUE: Single frontal radiographic view of the chest acquired. RADIATION DOSE: NA LIMITATIONS: None. FINDINGS: LUNGS AND PLEURA: The previously described patchy airspace disease in the peripheral left lung and lung base is again identified and appears essentially unchanged. The right lung remains ryan ar. No pneumothorax is seen. No pleural effusions are identified. MEDIASTINUM AND HILAR STRUCTURES: No masses. Contour normal. HEART AND VASCULAR STRUCTURES: The configuration of the heart and mediastinal structures is unchanged . BONES: No acute findings. HARDWARE: None in the chest. OTHER: No other significant finding. IMPRESSION: No significant interval change. Findings as noted above. TECHNICAL DOCUMENTATION: JOB ID: [id number]
[2016-12-24] MEDS ORDERED: SODIUM POLYSTYRENE SULFONATE 15 GM/60 ML ONE (23:00)
--- NOTE | 2016-12-24 23:00 | RADIOLOGY REPORT (SQ) ---
EXAM DESCRIPTION: CT ABD/PELVIS NO ORAL OR IV COMPLETED DATE/TIME: 12/24/2016 10:27 pm REASON FOR STUDY: llq pain COMPARISON: None. TECHNIQUE: CT scan of the abdomen and pelvis performed without intravenous or oral contrast. Images reviewed with lung, soft tissue, and bone windows. Reconstructed coronal and sagittal MPR images revi ewed. All images stored on PACS. All CT scanners at this facility use dose modulation, iterative reconstruction, and/or weight based d osing when appropriate to reduce radiation dose to as low as reasonably achievable (ALARA). [facility]: Dose Right [facility]: CareDose [facility]: Dose Right [facility]: Teradose 4D [facility]: Bounce Imaging RADIATION DOSE: Up-to-date CT equipment and radiation dose reduction techniques were employed. CTDIv ol: 23.0 mGy. DLP: 1357 mGy-cm.mGy. LIMITATIONS: Study is limited somewhat due to motion artifact. FINDINGS: LOWER CHEST: No significant findings. No nodules or infiltrates. NON-CONTRASTED LIVER, SPLEEN, ADRENALS: Evaluation limited by lack of IV contrast. No identified sign ificant masses. PANCREAS: No masses. No peripancreatic inflammatory changes. GALLBLADDER: The gallbladder appears mildly distended. There is heterogeneous density which may repr esent a component of biliary sludge. No obvious gallstones are identified. No inflammatory changes t o suggest cholecystitis. RIGHT KIDNEY AND URETER: No suspicious masses. Assessment limited by lack of IV contrast. No signif icant calcifications. No hydronephrosis or hydroureter. LEFT KIDNEY AND URETER: No suspicious masses. Assessment limited by lack of IV contrast. Small calc ific density is identified which may represent a vascular calcification rather than a nonobstructing renal calculus. No ureteric calculi are identified. No hydronephrosis or hydroureter. AORTA AND RETROPERITONEUM: No aneurysm. Scattered vascular calcifications are identified. No retrop eritoneal masses or adenopathy. BOWEL AND PERITONEAL CAVITY: No obvious masses or inflammatory changes. No free fluid. APPENDIX: Normal. PELVIS, BLADDER, AND ABDOMINAL WALL:No abnormal masses. No free fluid. Bladder normal. BONES: No significant findings. OTHER: No other significant finding. IMPRESSION: Left renal calcification is identified which may be vascular rather than representing a nonobstructing renal calculus. No other significant intra-abdominopelvic abnormalities were identifi ed. Other findings as noted above TECHNICAL DOCUMENTATION: JOB ID: [id number] Quality ID # [id number]: Final reports with documentation of one or more dose reduction techniques (e.g., Au tomated exposure control, adjustment of the mA and/or kV according to patient size, use of iterative reconstruction technique) 2010 [employer]- All Rights Reserved
[2016-12-24] MEDS: DOXAZOSIN MESYLATE 4 MG TABLET PO SCH (23:05)
[2016-12-24] MEDS: FAMOTIDINE 20 MG TABLET PO SCH (23:06)
[2016-12-24] MEDS: HYDRALAZINE HCL 50 MG TABLET PO SCH (23:06)
[2016-12-24] MEDS ORDERED: APIXABAN 2.5 MG TABLET ONE (23:08)
[2016-12-24] MEDS ORDERED: INSULIN GLARGINE,HUM.REC.ANLOG 300 UNIT/3 ML INSULN.PEN SUBCUT ONE (23:09)
[2016-12-24] MEDS: APIXABAN 2.5 MG TABLET PO SCH (23:10)
[2016-12-24] MEDS: INSULIN GLARGINE,HUM.REC.ANLOG 300 UNIT/3 ML INSULN.PEN SUBCUT SCH (23:11)
[2016-12-24] MEDS ORDERED: SODIUM POLYSTYRENE SULFONATE 15 GM/60 ML PO ONE (23:15)
[2016-12-24] MEDS ORDERED: PHARMACY COMMUNICATION ORDER MC SCH (23:45)
[2016-12-24] MEDS ORDERED: DOXYCYCLINE HYCLATE INJ 100 MG VIAL IV PRN (23:45)
[2016-12-25] MEDS: IPRATROPIUM/ALBUTEROL 0.5-2.5 MG/3 ML AMPUL NEB SCH ×5 (00:11→20:56)
[2016-12-25] MEDS ORDERED: DOXYCYCLINE HYCLATE 100 MG in DEXTROSE 5%-WATER 250 ML IV ONE (00:15)
[2016-12-25] MEDS ORDERED: DOXYCYCLINE HYCLATE INJ 100 MG VIAL ONE (00:50)
[2016-12-25 02:43] LABS: ANION GAP 12 (5-19); BLOOD UREA NITROGEN 94 mg/dL (7-20); CALCIUM 8.6 mg/dL (8.4-10.2); CARBON DIOXIDE 26 mmol/L (22-30); CHLORIDE 93 mmol/L (98-107); CREATININE RESULT 2.46 mg/dL (0.52-1.25); GLUCOSE 252 mg/dL (75-110); POTASSIUM 5.4 mmol/L (3.6-5.0); SODIUM 130.6 mmol/L (137-145)
[2016-12-25] MEDS: HYDRALAZINE HCL 50 MG TABLET PO SCH ×3 (05:52→21:45)
[2016-12-25] MEDS: NORMAL SALINE 1000 ML 1,000 ML IV PRN ×2 (05:52→14:57)
[2016-12-25 06:50] LABS: ABSOLUTE BASOPHILS # (AUTO) 0.1 10^3/uL (0.0-0.2); ABSOLUTE LYMPHOCYTES (AUTO) 0.8 10^3/uL (0.5-4.7); ABSOLUTE MONOCYTES (AUTO) 0.4 10^3/uL (0.1-1.4); ABSOLUTE NEUT (AUTO) 5.3 10^3/uL (1.7-8.2); BASOPHILS % (AUTO) 0.9 % (0-2); EOSINOPHILS % (AUTO) 0.1 % (0-6); HEMATOCRIT 38.5 % (37.9-51.0); HEMOGLOBIN 12.3 g/dL (13.5-17.0); HGB HCT DIFFERENCE -1.6; LYMPHOCYTES % (AUTO) 12.6 % (13-45); MEAN CORPUSCULAR HEMOGLOBIN 26.7 pg (27.0-33.4); MEAN CORPUSCULAR HGB CONC 31.9 g/dL (32.0-36.0); MEAN CORPUSCULAR VOLUME 84 fl (80-97); MONOCYTES % (AUTO) 5.8 % (3-13); RED BLOOD COUNT 4.59 10^6/uL (4.35-5.55); SEGMENTED NEUTROPHILS % (AUTO) 80.6 % (42-78); WHITE BLOOD COUNT 6.6 10^3/uL (4.0-10.5)
[2016-12-25 07:05] LABS: ALANINE AMINOTRANSFERASE 797 U/L (21-72); ALKALINE PHOSPHATASE 216 U/L (38-126); ANION GAP 10 (5-19); ASPARTATE AMINO TRANSFERASE 176 U/L (17-59); BILIRUBIN,DIRECT 0.3 mg/dL (0.0-0.4); BILIRUBIN,TOTAL 0.7 mg/dL (0.2-1.3); BLOOD UREA NITROGEN 88 mg/dL (7-20); CALCIUM 8.3 mg/dL (8.4-10.2); CARBON DIOXIDE 27 mmol/L (22-30); CHLORIDE 95 mmol/L (98-107); CREATININE RESULT 2.33 mg/dL (0.52-1.25); GLUCOSE 176 mg/dL (75-110); SODIUM 131.9 mmol/L (137-145); TOTAL PROTEIN 5.9 g/dL (6.3-8.2)
--- NOTE | 2016-12-25 07:56 | PDOC CONSULTATION ---
Consultation Consult Date: 12/25/16 Consult reason:: ZULEYKA, Hyperkalemia History of Present Illness Admission Date/PCP: 12/24/16 18:15 SUDEEP CHEUNG History of Present Illness: CHARLA WEBB JR is a 81 year old male with a past medical history including complicated diabetes, Hypertension, PVD, and congestive heart failure was admitted from the correction with a 3 day history of crampy lower abdominal pain in the left lower quadrant and also has had decreased p.o. intake. The patient has been on diuretics for treatment of his congestive heart failure. He was sent over and was found to have Bradycardia with a Type 11 heart block, abnormal LFT, hyperkalemia along with acute on chronic renal failure. He denied any chest pains, dyspnea.The patient denies having any fevers or chills. An abdominal ultrasound showed him to have gallstones although he does not really have much in the way of right upper quadrant pain. He does report some urinary frequency and dysuria over the last day. The patient has been on bumex , Zaroxolyn and Spironolactone for treatment of his congestive heart failure. He also does report having some loose bowel movements over the last 2 days. Uncertain as to whether there is been any blood in his urine or stool as he is unable to see very well. A CT abdomen done did not show any gallstones or obstructive CBD.His UA is indicative of UTI.He has been begun on Roscephin and IV Doxy and IVF by the hospitalist. I gave him sps last night. He is sleeping well currently on Cpap and in no distress.Currently he is normal sinus rhytmn with intermittent disintgration into a type 1-11 block.He is urine incontinent. Past Medical History Cardiac Medical History: Reports: Atrial Fibrillation, Hyperlipidemia, Hypertension-primary Denies: DVT, Myocardial Infarction, Pulmonary Embolism Pulmonary Medical History: Reports: Chronic Obstructive Pulmonary Disease (COPD) , Respiratory Failure, Sleep Apnea Neurological Medical History: Denies: Seizures Endocrine Medical History: Reports: Diabetes Mellitus Type 2 Denies: Hyperthyroidism, Hypothyroidism Renal/ Medical History: Reports: Chronic Kidney Disease Stage III Malignancy Medical History: Reports: Other - Prostate cancer GI Medical History: Denies: Cirrhosis, Gastroesophageal Reflux Disease, Hepatitis Musculoskeltal Medical History: Denies: Arthritis Skin Medical History: Reports: None Psychiatric Medical History: Reports: Depression Infectious Medical History: Reports: Methicillin-resist Staph Aureus, Vancomycin -resistant Enterococci Past Surgical History Past Surgical History: Reports: Orthopedic Surgery - Right fifth metatarsal amputation, Other - Nasal surgery many years ago while in the [place]. Social History Lives with: [facility] Smoking Status: Former Smoker Frequency of Alcohol Use: None Hx Recreational Drug Use: No Drugs: None Hx Prescription Drug Abuse: No - Advance Directive Resuscitation Status: Full Code Family History Parental Family History Reviewed: Yes - negative for ckd. Children Family History Reviewed: Yes Sibling(s) Family History Reviewed.: Yes Medication/Allergy Home Medications: B Complex & C No.20/Folic Acid [Renal Caps Softgel] 1 cap PO DAILY 07/03/16 Ergocalciferol (Vitamin D2) [Vitamin D2] 50,000 units PO ABDALLA 07/03/16 Ferrous Sulfate [Feosol 325 mg Tablet] 325 mg PO BID 07/03/16 Isosorbide Mononitrate [Imdur 30 mg Tablet.er] 30 mg PO DAILY 07/03/16 Hydralazine HCl [Apresoline 50 mg Tablet] 100 mg PO Q8 #0 tablet 07/24/16 Aspirin [Adult Low Dose Aspirin EC] 81 mg PO DAILY #30 tablet. 08/13/16 Doxazosin Mesylate [Cardura 4 mg Tablet] 4 mg PO QHS tablet 08/13/16 Epoetin Ernesto [Procrit Inj 20,000 Unit/1 ml Vial (Renal)] 20,000 unit SUBCUT Q7D ml 08/13/16 Insulin Lispro [Humalog Insulin (Lispro) 100 unit/mL] 0 - 12 unit SUBCUT ACHSP PRN unit 08/13/16 Metoprolol Succinate [Toprol Xl 50 mg Tab.sr] 50 mg PO QHS tab.sr.24h 08/13/16 Acetaminophen [Tylenol 325 mg Tablet] 650 mg PO Q4HP PRN 10/03/16 Ipratropium/Albuterol Sulfate [Duoneb 3 ml Ampul] 1 vial NEB Q6 10/03/16 Levalbuterol HCl [Xopenex Neb 1.25 mg/3 ml Ampul] 1.25 mg NEB RTQ4HP PRN Omeprazole 20 mg PO QAM 10/03/16 Calcium Carbonate [Tums Chewable 500 mg Tab.chew] 1,000 mg PO DAILY tab.chew Diltiazem HCl [Cardizem Cd 120 mg Capsule] 120 mg PO Q12 cap.sr.24h 10/14/16 Metolazone [Zaroxolyn 2.5 mg Tablet] 2.5 mg PO BID tablet 10/14/16 Oxycodone HCl/Acetaminophen [Percocet 5-325 mg Tablet] 1 tab PO Q6HP PRN #28 tablet 10/14/16 Phenazopyridine HCl [Pyridium 100 mg Tablet] 100 mg PO Q8A tablet 10/14/16 Spironolactone [Aldactone 25 mg Tablet] 25 mg PO DAILY tablet 10/14/16 Torsemide [Demadex 20 mg Tablet] 20 mg PO DAILY tablet 10/14/16 Apixaban [Eliquis 2.5 mg Tablet] 2.5 mg PO BID 12/24/16 B Complex & C No.20/Folic Acid [[place] Caps Softgel] 1 mg PO DAILY 12/24/16 Citalopram Hydrobromide [Celexa 20 mg Tablet] 20 mg PO DAILY 12/24/16 Collagenase Clostridium Hist. [Santyl Ointment 30 gm] 1 applic TP DAILY Insulin Glargine,Hum.rec.anlog [Lantus Insulin 100 Unit/mL] 35 unit SUBCUT Q12 12/24/16 Tiotropium Straughn [Spiriva Handihaler 5 Cap/Kit (18 Mcg/Cap)] 1 cap IH DAILY Allergies/Adverse Reactions: PPD black rubber mix Allergy (Verified 08/05/16 00:06) Review of Systems Constitutional: PRESENT: anorexia, fatigue, weight loss. ABSENT: chills, fever( s), headache(s), night sweats, weakness Nose, Mouth, and Throat: ABSENT: mouth pain, sore throat Cardiovascular: PRESENT: dyspnea on exertion. ABSENT: edema, orthropnea, palpitations Gastrointestinal: PRESENT: abdominal pain, diarrhea, nausea. ABSENT: coffee ground emesis, dysphagia, hematemesis, hematochezia, melena, vomiting Genitourinary: PRESENT: dysuria. ABSENT: hematuria Neurological: ABSENT: abnormal movements, abnormal speech, focal weakness Hematologic/Lymphatic: ABSENT: easy bruising, lymphadenopathy Physical Exam Vital Signs: Temp Pulse Resp BP Pulse Ox 97.7 F 60 22 H 161/79 H 100 12/25/16 04:00 12/25/16 00:07 12/25/16 04:05 12/25/16 04:02 12/25/16 04:05 Intake & Output 12/24/16 12/25/16 12/26/16 06:59 06:59 06:59 Intake Total 1033 Balance 1033 Weight 93.7 kg General appearance: PRESENT: no acute distress Eye exam: PRESENT: conjunctiva pink, EOMI, nystagmus, PERRLA Ear exam: PRESENT: normal external ear exam Mouth exam: PRESENT: dry mucosa, neck supple Neck exam: ABSENT: lymphadenopathy, meningismus, tenderness, thyromegaly, tracheal deviation Respiratory exam: PRESENT: clear to auscultation cornell, rhonchi. ABSENT: crackles Cardiovascular exam: PRESENT: +S1, +S2 GI/Abdominal exam: PRESENT: soft, tenderness - left lower quadrant. ABSENT: diminished bowel sounds, distended, organomegaly Extremities exam: ABSENT: pedal edema Neurological exam: PRESENT: awake, oriented to person, oriented to place Skin exam: PRESENT: dry, mottled - of both lower extremities. ABSENT: erythema Results Laboratory Results: 12/25/16 06:33 12/25/16 06:33 12/24/16 12/24/16 12/25/16 20:34 22:51 00:25 WBC RBC Hgb Hct MCV MCH MCHC RDW Plt Count Seg Neutrophils % Lymphocytes % Monocytes % Eosinophils % Basophils % Absolute Neutrophils Absolute Lymphocytes Absolute Monocytes Absolute Eosinophils Absolute Basophils Sodium 128.4 L 130.6 L Potassium 5.9 H 5.7 H 5.4 H Chloride 91 L 93 L Carbon Dioxide 27 26 Anion Gap 10 12 BUN 93 H 94 H Creatinine 2.40 H 2.46 H Est GFR ( Amer) 32 L 31 L Est GFR (Non-Af Amer) 26 L 26 L Glucose 173 H 252 H Calcium 8.5 8.6 Magnesium 2.4 H Total Bilirubin AST ALT Alkaline Phosphatase Total Protein Albumin 12/25/16 12/25/16 06:33 06:33 WBC 6.6 RBC 4.59 Hgb 12.3 L Hct 38.5 MCV 84 MCH 26.7 L MCHC 31.9 L RDW 19.0 H Plt Count 105 L Seg Neutrophils % 80.6 H Lymphocytes % 12.6 L Monocytes % 5.8 Eosinophils % 0.1 Basophils % 0.9 Absolute Neutrophils 5.3 Absolute Lymphocytes 0.8 Absolute Monocytes 0.4 Absolute Eosinophils 0.0 Absolute Basophils 0.1 Sodium 131.9 L Potassium 5.0 Chloride 95 L Carbon Dioxide 27 Anion Gap 10 BUN 88 H Creatinine 2.33 H Est GFR ( Amer) 33 L Est GFR (Non-Af Amer) 27 L Glucose 176 H Calcium 8.3 L Magnesium Total Bilirubin 0.7 AST 176 H ALT 797 H Alkaline Phosphatase 216 H Total Protein 5.9 L Albumin 3.0 L 12/24/16 12/25/16 12/25/16 20:34 00:25 06:33 Troponin I 0.094 0.119 0.116 Impressions: Abdomen/Pelvis CT 12/24/16 00:00 IMPRESSION: Left renal calcification is identified which may be vascular rather than representing a nonobstructing renal calculus. No other significant intra-abdominopelvic abnormalities were identified. Other findings as noted above Chest X-Ray 12/24/16 13:58 IMPRESSION: Mild patchy asymmetric edema or infiltrate in the left lung. Cardiomegaly with low lung volumes generally. Abdomen Ultrasound 12/24/16 14:34 IMPRESSION: FATTY INFILTRATION OF THE LIVER. Multiple gallstones are identified. There is some mild thickening of the gallbladder figueroa. The possibility of cholecystitis should be considered. Other findings as noted above Assessment & Plan - Diagnosis (1) CKD (chronic kidney disease) stage 3, GFR 30-59 ml/min Plan: from DM.Now with acute injury in the setting of dehydration and possible ATN from uti. (3) ZULEYKA (acute kidney injury) Plan: from dehydration and ATN.Continue ivf and abx (4) Abnormal liver function tests Plan: ? Sepsis vs GB disease. Needs further eval.US shows Fatty liver with no evidence of cirrhosis. (5) Left lower quadrant pain Plan: needs further eval (6) Acute and chronic respiratory failure ([id number]) Qualifiers: Respiratory failure complication: hypoxia and hypercapnia Qualified Code(s): J96.21 - Acute and chronic respiratory failure with hypoxia Plan: H/O Sleep apnea now on cpap. (7) Type 2 diabetes mellitus with hyperglycemia Qualifiers: Diabetes mellitus termite treater helper insulin use: unspecified termite treater helper insulin use status Qualified Code(s): E11.65 - Type 2 diabetes mellitus with hyperglycemia Is this a current diagnosis for this admission?: Yes (8) UTI (urinary tract infection) Qualifiers: Urinary tract infection type: site unspecified Is this a current diagnosis for this admission?: YesPlan: on abx (9) Obstructive sleep apnea Is this a current diagnosis for this admission?: YesPlan: on cpap. (10) Hyperkalemia Is this a current diagnosis for this admission?: YesPlan: corrected with appropriate measures.Continue IVF
--- NOTE | 2016-12-25 08:11 | EKG REPORT ---
SEVERITY:- ABNORMAL ECG - SINUS RHYTHM VENTRICULAR TRIGEMINY COMPLETE HEART BLOCK : Confirmed by: Suhail Kaufman MD 25-Dec-2016 08:10:51
[2016-12-25] MEDS ORDERED: ATROPINE SULFATE INJ 1 MG/1 ML VIAL ONE (08:54)
[2016-12-25] MEDS: LANSOPRAZOLE 15 MG TAB.RAP.DR PO SCH (08:56)
[2016-12-25] MEDS ORDERED: ATROPINE SULFATE INJ 1 MG/1 ML VIAL IV ONE (09:15)
--- NOTE | 2016-12-25 09:41 | Progress Note ---
Provider Note Provider Note: December 24, 2016: During the early evening hours, I was contacted by patient's floor nurse, stating that heart rate appeared to be a bit irregular, with pulse rate as low as 37. Stat EKG was obtained. No specific complaints on the part of the patient at that time. Short time later I was contacted by phone by Dr. Kaufman, on-call operations associate reading EKGs. He stated that the tracing from earlier in the afternoon was consistent with third-degree heart block. I went to the patient's bedside shortly thereafter. Decision was made to transport the patient to the intensive care unit, which was accomplished without difficulty. Shortly thereafter, I spoke by phone again with Dr. Kaufman, requesting that he evaluate the tracing that had been obtained in the early evening hours. Short while later he called back stating that a portion of this second tracing was likewise consistent with complete heart block. Patient was discussed by phone with Dr. Orourke, on-call operations associate. He had likewise evaluated the EKGs and felt the second tracing showed similar findings as interpreted by Dr. Kaufman. Patient remained hemodynamically stable. Repeat labs were performed. For his hyperkalemia, intravenous dextrose and calcium gluconate was given along with continued IV fluids. No outward evidence of fluid overload. Serial Chem-7's and troponins were performed, revealing gradual decrease in the potassium level. Cardiology consult placed for Dr. Orourke. Examination in the intensive care unit revealed mild to moderate left lower quadrant abdominal pain. CT scan of the abdomen and pelvis without contrast was performed, with results noted. Due to the findings on both chest x-rays, intravenous doxycycline was added in addition to the Rocephin that had already been started, for coverage of suspected pneumonia. Above discussed with daytime hospitalist team the morning of the fifth. 50 minutes critical care time spent in evaluation management of patient, including chart review, which included not only radiology report but also film review, direct patient evaluation, multiple discussions with nursing staff, entering of multiple orders into the electronic health record, and telephone discussions with the above 2 cardiologists.
[2016-12-25] MEDS ORDERED: ISOSORBIDE MONONITRATE 30 MG TAB.ER.24H PO SCH (10:00)
[2016-12-25] MEDS ORDERED: FOLIC ACID/VITAMIN B COMP W-C CAPSULE PO SCH (10:00)
[2016-12-25] MEDS ORDERED: DOXYCYCLINE HYCLATE 100 MG in DEXTROSE 5%-WATER 250 ML IV SCH (10:00)
[2016-12-25] MEDS ORDERED: CALCIUM CARBONATE 500 MG TAB.CHEW PO SCH (10:00)
[2016-12-25] MEDS: INSULIN GLARGINE,HUM.REC.ANLOG 300 UNIT/3 ML INSULN.PEN SUBCUT SCH ×2 (10:59→21:45)
[2016-12-25] MEDS: FOLIC ACID/VITAMIN B COMP W-C CAPSULE PO SCH (11:01)
[2016-12-25] MEDS: ASPIRIN 81 MG TABLET, ENT COATED PO SCH (11:01)
[2016-12-25] MEDS: FAMOTIDINE 20 MG TABLET PO SCH ×2 (11:02→21:46)
[2016-12-25] MEDS: CITALOPRAM HYDROBROMIDE 20 MG TABLET PO SCH (11:02)
[2016-12-25] MEDS: CEFTRIAXONE 1 GM/D5W RTU 50 ML IV SCH (11:03)
[2016-12-25] MEDS: TIOTROPIUM BROMIDE DPI 5 CAP/KIT (18 MCG/CAP) IH SCH (11:03)
[2016-12-25] MEDS: APIXABAN 2.5 MG TABLET PO SCH ×2 (11:41→21:46)
--- NOTE | 2016-12-25 13:00 | EKG REPORT ---
SEVERITY:- ABNORMAL ECG - A-FLUTTER W/ PREDOM 4:1 AV BLOCK, A-RATE 288 NONSPECIFIC INTRAVENTRICULAR CONDUCTION DELAY : Confirmed by: Suhail Kaufman MD 25-Dec-2016 12:58:41
--- NOTE | 2016-12-25 13:11 | PDOC PROGRESS REPORT ---
Subjective Progress Note for:: 12/25/16 Subjective:: His abdominal pain has improved. Developed heart block overnight Physical Exam Vital Signs: Temp Pulse Resp BP Pulse Ox 96.8 F L 82 13 119/63 98 12/25/16 12:00 12/25/16 12:00 12/25/16 12:00 12/25/16 12:00 12/25/16 12:00 Intake & Output 12/24/16 12/25/16 12/26/16 06:59 06:59 06:59 Intake Total 1033 Output Total 535 Balance 1033 -535 Weight 93.7 kg General appearance: PRESENT: mild distress Eye exam: PRESENT: conjunctiva pink. ABSENT: scleral icterus Mouth exam: PRESENT: moist, tongue midline Neck exam: ABSENT: JVD Respiratory exam: PRESENT: clear to auscultation cornell. ABSENT: rales, rhonchi, wheezes Cardiovascular exam: PRESENT: irregular rhythm GI/Abdominal exam: PRESENT: normal bowel sounds, soft. ABSENT: distended, guarding, mass, organolmegaly, rebound, tenderness Extremities exam: ABSENT: calf tenderness, clubbing, pedal edema Neurological exam: PRESENT: alert, awake, oriented to person, oriented to place , oriented to time, oriented to situation, CN II-XII grossly intact. ABSENT: motor sensory deficit Psychiatric exam: PRESENT: appropriate affect Skin exam: PRESENT: dry, intact, warm. ABSENT: cyanosis, rash Results Laboratory Results: 12/25/16 06:33 12/25/16 06:33 12/24/16 12/24/16 12/25/16 20:34 22:51 00:25 WBC RBC Hgb Hct MCV MCH MCHC RDW Plt Count Seg Neutrophils % Lymphocytes % Monocytes % Eosinophils % Basophils % Absolute Neutrophils Absolute Lymphocytes Absolute Monocytes Absolute Eosinophils Absolute Basophils Sodium 128.4 L 130.6 L Potassium 5.9 H 5.7 H 5.4 H Chloride 91 L 93 L Carbon Dioxide 27 26 Anion Gap 10 12 BUN 93 H 94 H Creatinine 2.40 H 2.46 H Est GFR ( Amer) 32 L 31 L Est GFR (Non-Af Amer) 26 L 26 L Glucose 173 H 252 H Calcium 8.5 8.6 Magnesium 2.4 H Total Bilirubin AST ALT Alkaline Phosphatase Total Protein Albumin 12/25/16 12/25/16 06:33 06:33 WBC 6.6 RBC 4.59 Hgb 12.3 L Hct 38.5 MCV 84 MCH 26.7 L MCHC 31.9 L RDW 19.0 H Plt Count 105 L Seg Neutrophils % 80.6 H Lymphocytes % 12.6 L Monocytes % 5.8 Eosinophils % 0.1 Basophils % 0.9 Absolute Neutrophils 5.3 Absolute Lymphocytes 0.8 Absolute Monocytes 0.4 Absolute Eosinophils 0.0 Absolute Basophils 0.1 Sodium 131.9 L Potassium 5.0 Chloride 95 L Carbon Dioxide 27 Anion Gap 10 BUN 88 H Creatinine 2.33 H Est GFR ( Amer) 33 L Est GFR (Non-Af Amer) 27 L Glucose 176 H Calcium 8.3 L Magnesium Total Bilirubin 0.7 AST 176 H ALT 797 H Alkaline Phosphatase 216 H Total Protein 5.9 L Albumin 3.0 L 12/24/16 21:23 Nasophary (Mrsa Only) MRSA Surveillance Culture - Final MRSA RECOVERED 12/24/16 12/25/16 12/25/16 20:34 00:25 06:33 Troponin I 0.094 0.119 0.116 Impressions: Abdomen/Pelvis CT 12/24/16 00:00 IMPRESSION: Left renal calcification is identified which may be vascular rather than representing a nonobstructing renal calculus. No other significant intra-abdominopelvic abnormalities were identified. Other findings as noted above Chest X-Ray 12/24/16 13:58 IMPRESSION: Mild patchy asymmetric edema or infiltrate in the left lung. Cardiomegaly with low lung volumes generally. Abdomen Ultrasound 12/24/16 14:34 IMPRESSION: FATTY INFILTRATION OF THE LIVER. Multiple gallstones are identified. There is some mild thickening of the gallbladder figueroa. The possibility of cholecystitis should be considered. Other findings as noted above Assessment & Plan - Diagnosis (1) Acute on chronic renal failure Qualifiers: Acute renal failure type: unspecified Chronic kidney disease stage: unspecified stage Qualified Code(s): N17.9 - Acute kidney failure, unspecified; N18.9 - Chronic kidney disease, unspecified Is this a current diagnosis for this admission?: YesPlan: Has had decreased p.o. intake and has continued with his diuretics. We will hold his diuretics and give IV fluids cautiously. He is noted to have hyperkalemia which has resolved with IV fluids. He has evaluated the patient. I discussed the possibility of dialysis and the patient reports at this time he would not want dialysis done. (2) Hyperkalemia Is this a current diagnosis for this admission?: YesPlan: Resolved (3) Gallstones Is this a current diagnosis for this admission?: YesPlan: Patient reports a 3 day history of anorexia and abdominal pain. Most of his abdominal pain is in the left lower area. He has a negative Keenan sign. I feel the gallstones most likely are an incidental finding although his liver enzymes are slightly elevated. Abdominal pain has resolved. (4) BPH (benign prostatic hyperplasia) Qualifiers: Lower urinary tract symptom presence: symptoms present Qualified Code(s ): N40.1 - Benign prostatic hyperplasia with lower urinary tract symptoms; R35.0 - Frequency of micturition Is this a current diagnosis for this admission?: Yes (5) Diastolic CHF Is this a current diagnosis for this admission?: YesPlan: We will continue to give IV fluids and watch closely given his history of congestive heart failure. (6) GERD (gastroesophageal reflux disease) Qualifiers: Esophagitis presence: without esophagitis Qualified Code(s): K21.9 - Gastro-esophageal reflux disease without esophagitis Is this a current diagnosis for this admission?: YesPlan: Continue with the Prilose. (7) Gout Qualifiers: Gout site: unspecified site Gout etiology: unspecified cause Chronicity: unspecified Qualified Code(s): M10.9 - Gout, unspecified Is this a current diagnosis for this admission?: YesPlan: asymptomatic (8) Hyperlipidemia Qualifiers: Hyperlipidemia type: unspecified Qualified Code(s): E78.5 - Hyperlipidemia, unspecified Is this a current diagnosis for this admission?: Yes (9) Hypertension Qualifiers: Hypertension type: essential hypertension Qualified Code(s): I10 - Essential (primary) hypertension Is this a current diagnosis for this admission?: YesPlan: We will continue with his antihypertensives except for his diuretic therapy and beta-alia (10) Obesity Qualifiers: Obesity severity: morbid Is this a current diagnosis for this admission?: Yes (11) Osteomyelitis Qualifiers: Osteomyelitis location: foot Laterality: right Qualified Code(s): M86.171 - Other acute osteomyelitis, right ankle and foot Is this a current diagnosis for this admission?: YesPlan: History of osteomyelitis in the right foot. (12) Type 2 diabetes mellitus with hyperglycemia Qualifiers: Diabetes mellitus detention insulin use: unspecified intermediate frame tender insulin use status Qualified Code(s): E11.65 - Type 2 diabetes mellitus with hyperglycemia Is this a current diagnosis for this admission?: YesPlan: Continue with sliding scale insulin. (13) UTI (urinary tract infection) Qualifiers: Urinary tract infection type: site unspecified Is this a current diagnosis for this admission?: YesPlan: Cover with Rocephin. (14) Vitamin D deficiency Is this a current diagnosis for this admission?: Yes (15) Anemia Qualifiers: Anemia type: unspecified type Qualified Code(s): D64.9 - Anemia, unspecified Is this a current diagnosis for this admission?: YesPlan: Likely is anemia of chronic disease given his renal failure. (16) Anticoagulated Is this a current diagnosis for this admission?: YesPlan: Continue with Eliquis for his atrial fibrillation. (17) Atrial fibrillation Qualifiers: Atrial fibrillation type: unspecified Qualified Code(s): I48.91 - Unspecified atrial fibrillation Is this a current diagnosis for this admission?: YesPlan: Had an episode of third-degree heart block last night. His beta-aila has been stopped. Cardiology has been consulted and we appreciate their input (18) COPD (chronic obstructive pulmonary disease) Qualifiers: COPD type: unspecified COPD Qualified Code(s): J44.9 - Chronic obstructive pulmonary disease, unspecified Is this a current diagnosis for this admission?: YesPlan: Nebulizers as needed (19) Chronic kidney disease (CKD) Qualifiers: Chronic kidney disease stage: stage 4 (severe) Qualified Code(s): N18.4 - Chronic kidney disease, stage 4 (severe) Is this a current diagnosis for this admission?: YesPlan: Patient has stage IV acute on chronic renal therapy (20) Obstructive sleep apnea Is this a current diagnosis for this admission?: YesPlan: Give CPAP nightly - Time Time Spent with patient: 35 or more minutes - Inpatient Certification Medical Necessity: Need For IV Fluids, Need for IV Antibiotics
[2016-12-25] MEDS: COLLAGENASE CLOSTRIDIUM HIST. OINT 30 GM TP SCH (18:15)
[2016-12-25] MEDS: DEXTROSE 50%-WATER 25 GM/50 ML DISP.SYRIN IV PRN ×2 (18:29→21:54)
--- NOTE | 2016-12-25 19:54 | CONSULTATION REPORT E ---
Consultation Report NAME: CHARLA WEBB : 1935 AGE: 81Y DATE: 12/25/2016 608 A TO: NEFTALI IBARRA M.D. FROM: CARLA GARCIA M.D. Requesting Physician REASON FOR CONSULTATION: Patient with high-grade/complete heart block. HISTORY: The patient is a 81-year-old male with known history of diabetes mellitus, hypertension, history of atrial fibrillation paroxysmal and history of chronic kidney disease. He was in the intermediate and had cramping lower abdominal pain. There was no right upper quadrant pain. There were no fevers, chills or rigors. There was no chest pain or discomfort. His p.o. intake was decreased and the patient also had some diarrhea, but because of the poor vision that the patient has, he could not tell whether he had any blood in the stools. He came to the emergency room, where he was found to be in complete heart block with a stable blood pressure. His potassium initially was 6.4 and the patient had acute on chronic renal failure. The patient was treated with Kayexalate and antihyperkalemic measures such as calcium gluconate, insulin and Dextrose. The patient's subsequent potassium came down to 5.4. In spite of this, the patient continued to be in complete heart block/third-degree A-V block with a stable blood pressure. He denies any dizziness, syncope or near syncope, but the patient is confused is on BiPAP at present. The patient as per my instructions was given atropine 1 mg IV push and subsequently, the patient went into atrial flutter with a controlled ventricular response. He does have some PND and orthopnea. He has a history of acute on chronic diastolic heart failure with a normal preserved systolic function. He denies any TIA or CVA symptoms. He had some burning micturition and some dysuria and urinary hesitancy. As mentioned earlier, there was no fever. There was no cough or sputum production. PAST MEDICAL HISTORY: Positive for: 1. History of atrial fibrillation, seems to be paroxysmal. The patient was on Eliquis at home 2.5 mg p.o. b.i.d. 2. History of hypertension. 3. Past history of congestive heart failure which seems to be diastolic heart failure since the patient has grade 3, therefore, moderate diastolic dysfunction by echocardiogram with normal LV ejection fraction. 4. There is no history of myocardial infarction or angina. 5. History of chronic obstructive pulmonary disease. 6. History of sleep apnea and uses BiPAP. 7. There is no history of TIA or CVA. There is no history of seizures. 8. History of diabetes mellitus type 2, insulin dependent. 9. No thyroid disease. 10. He has chronic kidney disease, seems be at present has progressed to stage 3. On 10/05/2016, his initial BUN was 23, creatinine 1.36 and GFR was greater than 60 and subsequently, GFR came down to 52 with a creatinine of 1.57 and BUN 26. At present, his creatinine has gone up to 2.33, BUN 88, and GFR reduced at 33 mL which is stage 3 acute on chronic renal failure. 11. He has a history of depression. 12. There is no history of headaches, migraines or seizures. 13. The patient appears to be mildly overweight. PAST SURGICAL HISTORY: 1. Orthopedic surgery. 2. Right fifth metatarsal amputation. 3. Nasal surgery many years ago while in the [employer]. SOCIAL HISTORY: The patient is a former smoker, he stopped smoking many years ago. CODE STATUS: The patient is a FULL CODE. Mr. Enoch Angulo, one of his relatives is his surrogate healthcare decision maker. ALLERGIES: 1. PPD. 2. BLACK RUBBER MIX. MEDICATIONS: Include: 1. Tylenol 650 mg p.o. every 4 hours p.r.n. 2. Albuterol sulfate 2.5 mg nebulizer treatment every 4 hours. 3. Eliquis 2.5 mg p.o. every 12 hours. 4. Aspirin 81 mg p.o. daily. 5. He received 1 dose of atropine 1 mg. 6. Calcium gluconate 1000 mg IV x1. 7. Celexa 20 mg p.o. daily. 8. Collagenase Clostridium 1 application topically daily. 9. Hypoglycemic precautions with glucose 40% gel 15 g and 30 g p.o. p.r.n. hypoglycemia. 10. Dextrose 50%, 50 g x1 with 10 units of IV regular insulin for hyperkalemia. 11. Hypoglycemic precautions with dextrose 50%, 12.5 g and 25 g respectively p.r.n. hypoglycemia. 12. Cardura 4 mg p.o. nightly. 13. Doxycycline 100 mg IV x1. 14. Vitamin D3, 50,000 units p.o. weekly. 15. Pepcid 20 mg p.o. every 12 hours. 16. Folic acid 1 capsule p.o. daily. 17. Vitamin B and C. 18. Glucagon 1 mg IM p.r.n. hypoglycemia. 19. Hydralazine 100 mg p.o. every 8 hours. 20. Ceftriaxone 1 g IV piggyback daily. 21. Normal saline at 125 mL/h. 22. Lantus insulin 35 units subcutaneously every 12 hours. 23. Accu-Cheks a.c. t.i.d. 24. Sliding scale regular insulin coverage. 25. Ipratropium albuterol 3 mL nebulizer treatment every 6 hours. 26. Prevacid 15 mg p.o. a.c. breakfast. 27. Zofran 4 mg p.o. every 8 hours. 28. Oxycodone 1 tablet p.o. every 6 hours. 29. He did receive Kayexalate x2, 30 g and 15 g. 30. Spiriva HandiHaler 1 capsule inhalation daily. REVIEW OF SYMPTOMS: The patient is not a very good historian at present. He is also on BiPAP, but is able to give some degree of review of symptoms. CONSTITUTIONAL: Denies any fever, chills, or rigors. Complains of generalized fatigue and weakness. HEAD: Denies headaches or head injury. EYES: The patient states he has blurred vision in both eyes. There is no amaurosis fugax. There is no glaucoma. EARS: No history of hearing loss. No history of tinnitus. No history of recurrent ear infections. NOSE: No history of hay fever. No history of nosebleeds. No history of nasal polyps. MOUTH: No history of altered taste sensation. The patient's mouth is dry as per the patient. There are no ulcers in the mouth. There is no bleeding from the gums. THROAT: No history of odynophagia or dysphagia. No history of recurrent sore throats. SKIN: There is no pruritus. There is no yellowish discoloration of the skin. There is no psoriasis. There is no skin cancer. NECK: There is no painful or painless swelling in the neck. There is no lymphadenopathy. There is no goiter. LUNGS: The patient denies any recent cough or wheezing. There are no symptoms suggestive of acute exacerbation of COPD. He has a history of COPD. There is a history of sleep apnea and he uses CPAP at night. He has no history of pulmonary embolism. No history of hemoptysis. No history of pleuritic chest pain. No recent cough, wheezing or sputum production. CARDIAC: History of hypertension present. No history of SD or anginal symptoms. He has a history of diastolic acute on chronic heart failure. No recent symptoms. The patient appears to be dehydrated. He denies any palpitations. There is no PND or orthopnea. There is no syncope. Even though the patient was in complete heart block, he had no dizziness or near syncope or syncope, but he had generalized weakness. Past history of atrial fibrillation and was on Eliquis at home. At present, the patient initially had complete heart block which he has never had which probably is secondary to the patient taking metoprolol which I think he took yesterday prior to coming to the emergency room and also due to hyperkalemia causing complete heart block. Subsequently, the patient has gone in atrial flutter. GASTROINTESTINAL: The patient had lower abdominal pain. He has gallstones, but he has no right upper quadrant pain. There is no history of fatty food intolerance. No history of jaundice. It is not clear whether the patient had blood in the stools. There are no altered bowel movements, although he did have some diarrhea for the past 2 days with lower abdominal cramping. There is no cirrhosis of the liver. MUSCULOSKELETAL: Complains of arthritis but no collagen vascular disease. RENAL: The patient has history of chronic kidney disease stage 3a, at present GFR has come down from 57 to 33 mL which is acute on chronic renal failure. The patient does have some dysuria and hesitancy, but no blood in the urine. He has no symptoms of enlarged prostate. He has a history of prostate cancer which he states is cured. CENTRAL NERVOUS SYSTEM: No history of TIA or CVA. No history of headaches, migraines or seizure. No gait imbalance. PSYCHIATRIC: The patient has a history of depression. The patient does appear to be depressed at present. There is no history of anxiety. No history of homicidal or suicidal ideation. VASCULAR: No history of calf or buttock claudication. No history of DVT. HEMATOLOGIC: No bleeding diathesis or clotting disorders. PHYSICAL EXAMINATION: GENERAL: The patient is very lethargic and somnolent, but does answer questions when awakened. He is slightly overweight, but well groomed. VITAL SIGNS: He is afebrile with a temperature of 97.2 degrees Fahrenheit. Pulse is 73 beats per minute and earlier EKG showed atrial flutter. His blood pressure is 152/71. Respirations are 18 per minute. O2 saturation 98% on CPAP with FIO2 of 28%. HEENT: Head is atraumatic and normocephalic. Eyes; pupils are equal, round, regular, reactive to light and accommodation. Extraocular movements are normal. There is no conjunctival pallor. There is no scleral icterus. Ears; tympanic membranes are intact. External auditory canals are clear. Nose; there is no deviated nasal septum. There is no inflammation of the nasal mucous membranes. Mouth; mucous membranes of the mouth are dry. Tongue is dry. There are no ulcers. There is no bleeding from the gums. Throat; there is no redness of the oropharynx. There are exudates. SKIN: There is no petechia or ecchymosis. There are no skin lesions or skin rashes. NECK: Supple. There is no JVD. Carotids are equal. There is no bruit. There is no lymphadenopathy. Trachea is central. There is no goiter. LUNGS: Diminished air entry, prolonged expiration. A few scattered rhonchi; otherwise, there is no wheezing or rales of CHF. HEART: S1 and S2 are heard. S1 is of variable intensity. There is no S3 gallop. There is no S4 gallop. There is a systolic murmur at the left sternal border at the apex. There is no rub. ABDOMEN: Slightly obese, nontender. There is no hepatosplenomegaly. Bowel sounds are well heard. There are no tender areas or masses. EXTREMITIES: Femorals are deep. Leg pulses are diminished. There is no pedal edema. There is no DVT or cellulitis. There is no cyanosis or clubbing. There is normal capillary refill. CENTRAL NERVOUS SYSTEM: The patient is conscious but very drowsy, but still answers questions appropriately. There are no focal deficits. PSYCHIATRIC: The patient does not appear to be agitated. He appears to be depressed. No further detailed psychiatric examination could be made. INTAKE AND OUTPUT: Not accurate. LABORATORY: White count 6600, hemoglobin 12.3, hematocrit 38.5, platelet count 105,000. Initial potassium was 6.4, early this morning it was 5.4, subsequently at 0633 hours, his sodium is 131.9, potassium 5.0, chloride 95, CO2 of 27, BUN 88, creatinine 2.33, GFR reduced at 33 mL which is chronic kidney disease stage 3 but this is acute on chronic kidney disease, glucose 176, calcium 8.3. Liver function tests are abnormal with AST of 176, ALT of 797, alkaline phosphatase 216. Total protein 5.9, albumin 3.0. Troponin-I is 0.119 and 0.116. Pro time 14.5, INR 1.05, PTT 31.2. ELECTROCARDIOGRAM: The patient's initial EKG shows complete heart block with occasional junctional escape rhythm and LVH by voltage. His subsequent EKG shows atrial flutter, nonspecific IVCD. Also, he has T wave inversion in the inferior leads III and aVF. IMAGIN. Abdominal ultrasound shows multiple gallstones identified. There is some mild thickening of the gallbladder wall, possibility of cholecystitis should be considered, but the patient is asymptomatic from it. 2. Chest x-ray shows patchy air-space disease in the peripheral left lung and base is again identified and appears essentially unchanged. The right lung remains clear. The pulmonary vasculature is normal. There is no evidence of CHF. 3. Abdominopelvic CT shows left renal calcification identified which may be vascular rather than representing an nonobstructing renal calculus. No other significant intraabdominal, pelvic abnormalities were identified. IMPRESSION: 1. Complete heart block most likely secondary to the patient's hyperkalemia and the patient being on beta alia. Now, the patient has converted to atrial flutter. 2. Atrial flutter with controlled ventricular response. 3. Hyperkalemia. 4. Acute on chronic renal failure. 5. Hypertension. 6. Borderline elevated troponin-I in the region of non-ST elevation SD, although it has not gone above the cut off doug from 0.12. 7. COPD. 8. Diabetes mellitus type 2. 9. Obstructive sleep apnea. 10. Pneumonia, most likely in the left lower lobe. 11. Depression. RECOMMENDATIONS: 1. Note, earlier when the patient was in complete heart block, he had a stable blood pressure and hence there was no indications for a permanent pacemaker. Now, the patient is in atrial flutter and hence, there is no need for a permanent pacemaker. Would recommend holding the beta alia, continue the patient on Eliquis, watch the patient's heart rate. 2. Nephrology consult. Most likely, the patient needs dialysis. 3. Continue antibiotics for the pneumonia. 4. Also, would continue the patient on current medications including antibiotics and Eliquis. 5. Continue hydralazine. 6. Hold the patient's metoprolol. NOTE: The patient was seen at 1000 hours and 40 minutes spent on the patient with more than 50% of the time spent in direct patient care. His medications have been reviewed and medications adjusted. Discussed with other caregiving providers on the case and formulated a management plan for this patient. This involved highly complex medical decision making. Will follow with you. DICTATING PHYSICIAN: NEFTALI IBARRA M.D. [id number] Y#: [id number] ID: [id number] JOB#: [id number] ACCT: [id number] cc:NEFTALI IBARRA M.D. >
[2016-12-25] MEDS: DOXAZOSIN MESYLATE 4 MG TABLET PO SCH (21:46)
[2016-12-26] MEDS: IPRATROPIUM/ALBUTEROL 0.5-2.5 MG/3 ML AMPUL NEB SCH ×4 (02:00→21:08)
[2016-12-26 04:11] LABS: ABSOLUTE LYMPHOCYTES (AUTO) 0.5 10^3/uL (0.5-4.7); ABSOLUTE MONOCYTES (AUTO) 0.3 10^3/uL (0.1-1.4); ABSOLUTE NEUT (AUTO) 4.8 10^3/uL (1.7-8.2); BASOPHILS % (AUTO) 0.5 % (0-2); EOSINOPHILS % (AUTO) 0.1 % (0-6); HEMATOCRIT 37.5 % (37.9-51.0); HGB HCT DIFFERENCE -1.5; LYMPHOCYTES % (AUTO) 9.1 % (13-45); MEAN CORPUSCULAR HEMOGLOBIN 27.2 pg (27.0-33.4); MEAN CORPUSCULAR HGB CONC 32.1 g/dL (32.0-36.0); MEAN CORPUSCULAR VOLUME 85 fl (80-97); RED BLOOD COUNT 4.42 10^6/uL (4.35-5.55); SEGMENTED NEUTROPHILS % (AUTO) 85.3 % (42-78); WHITE BLOOD COUNT 5.6 10^3/uL (4.0-10.5)
[2016-12-26 04:23] LABS: ANION GAP 8 (5-19); CALCIUM 7.7 mg/dL (8.4-10.2); CARBON DIOXIDE 26 mmol/L (22-30); CHLORIDE 100 mmol/L (98-107); CREATININE RESULT 1.69 mg/dL (0.52-1.25); GLUCOSE 94 mg/dL (75-110); POTASSIUM 4.3 mmol/L (3.6-5.0); SODIUM 133.6 mmol/L (137-145)
[2016-12-26 04:39] LABS: BLOOD UREA NITROGEN 62 mg/dL (7-20)
[2016-12-26] MEDS: HYDRALAZINE HCL 50 MG TABLET PO SCH ×2 (05:48→13:30)
[2016-12-26] MEDS: DEXTROSE 50%-WATER 25 GM/50 ML DISP.SYRIN IV PRN (05:49)
[2016-12-26] MEDS: NORMAL SALINE 1000 ML 1,000 ML IV PRN (05:49)
[2016-12-26] MEDS ORDERED: INSULIN GLARGINE,HUM.REC.ANLOG 300 UNIT/3 ML INSULN.PEN SUBCUT SCH (10:00)
[2016-12-26] MEDS: APIXABAN 2.5 MG TABLET PO SCH (10:13)
[2016-12-26] MEDS: ASPIRIN 81 MG TABLET, ENT COATED PO SCH (10:41)
[2016-12-26] MEDS: FOLIC ACID/VITAMIN B COMP W-C CAPSULE PO SCH (10:41)
[2016-12-26] MEDS: CITALOPRAM HYDROBROMIDE 20 MG TABLET PO SCH (10:41)
[2016-12-26] MEDS: LANSOPRAZOLE 15 MG TAB.RAP.DR PO SCH (10:42)
[2016-12-26] MEDS: CEFTRIAXONE 1 GM/D5W RTU 50 ML IV SCH (10:42)
[2016-12-26] MEDS: FAMOTIDINE 20 MG TABLET PO SCH (10:42)
[2016-12-26] MEDS: COLLAGENASE CLOSTRIDIUM HIST. OINT 30 GM TP SCH (10:43)
--- NOTE | 2016-12-26 10:56 | Physician Advisory Note ---
Physician Advisor ProgressNote .: Pursuant to the plan for Dariel Lu, I have reviewed the medical record for this patient. Physician Advisor Statement: Please consider documentin. "ARF, likely due to " - possibly due to "ATN related to intravascular volume depletion"? 2. "acute hyponatremia, suspect due to " 3. "chronic diastolic HF" 4. osteomyelitis: last prog note states both "h/o osteomyelitis Rt foot" and "yes, current dx" (which is contradictory info to chart reviewers) - "h/o" means, to reviewers, that dx is from the past & no longer present or requiring tx. - Please make it more explicit whether this is an ongoing problem ("acute on chronic"), or "acute/subacute" or "chronic". THanks! CK
[2016-12-26] MEDS: TIOTROPIUM BROMIDE DPI 5 CAP/KIT (18 MCG/CAP) IH SCH (10:59)
--- NOTE | 2016-12-26 11:43 | PDOC TRANSFER SUMMARY ---
General Admission Date/PCP: 12/24/16 18:15 SUDEEP CHEUNG Transfer Date: 12/26/16 Accepting Facility: [facility] Accepting Physician: Dr. Giselle Bell Resuscitation Status: Full Code - Transfer Diagnosis (1) Acute on chronic renal failure Is this a current diagnosis for this admission?: YesDiagnosis Summary: Patient presented with a 3 day history of anorexia and viral gastroenteritis as the cause for the acute on chronic renal failure. It is resolving with IV fluids. (2) Hyperkalemia Is this a current diagnosis for this admission?: YesDiagnosis Summary: Resolved with IV fluids (3) Gallstones Is this a current diagnosis for this admission?: Yes (4) BPH (benign prostatic hyperplasia) Is this a current diagnosis for this admission?: Yes (5) Diastolic CHF Is this a current diagnosis for this admission?: YesDiagnosis Summary: Chronic diastolic congestive heart failure (6) GERD (gastroesophageal reflux disease) Is this a current diagnosis for this admission?: Yes (7) Gout Is this a current diagnosis for this admission?: Yes (8) Hyperlipidemia Is this a current diagnosis for this admission?: Yes (9) Hypertension Is this a current diagnosis for this admission?: Yes (10) Obesity Is this a current diagnosis for this admission?: Yes (11) Osteomyelitis Is this a current diagnosis for this admission?: YesDiagnosis Summary: Chronic osteomyelitis of the right foot. Surgery has recommended surgical debridement requiring anesthesia. Anesthesiology here would not administer patient in light of his third-degree heart block. Because of that we are arranging transfer to [facility] in case he needs a pacemaker. (12) Type 2 diabetes mellitus with hyperglycemia Is this a current diagnosis for this admission?: Yes (13) UTI (urinary tract infection) Is this a current diagnosis for this admission?: YesDiagnosis Summary: Negative cultures being treated with Rocephin. (14) Vitamin D deficiency Is this a current diagnosis for this admission?: Yes (15) Anemia Is this a current diagnosis for this admission?: Yes (16) Anticoagulated Is this a current diagnosis for this admission?: YesDiagnosis Summary: Was receiving Eliquis which was stopped today in anticipation of surgery on the foot (17) Atrial fibrillation Is this a current diagnosis for this admission?: YesDiagnosis Summary: The patient had been on a beta-alia for rate control. The beta-alia was stopped after third-degree heart block. Currently in atrial flutter. 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 The patient was given atropine and metoprolol was held. Since then the patient's heart rate has remained in the 70s. Currently is in atrial flutter. - Transfer Medications Home Medications: B Complex & C No.20/Folic Acid [Renal Caps Softgel] 1 cap PO DAILY 07/03/16 Ergocalciferol (Vitamin D2) [Vitamin D2] 50,000 units PO ABDALLA 07/03/16 Ferrous Sulfate [Feosol 325 mg Tablet] 325 mg PO BID 07/03/16 Isosorbide Mononitrate [Imdur 30 mg Tablet.er] 30 mg PO DAILY 07/03/16 Acetaminophen [Tylenol 325 mg Tablet] 650 mg PO Q4HP PRN 10/03/16 Ipratropium/Albuterol Sulfate [Duoneb 3 ml Ampul] 1 vial NEB Q6 10/03/16 Levalbuterol HCl [Xopenex Neb 1.25 mg/3 ml Ampul] 1.25 mg NEB RTQ4HP PRN Omeprazole 20 mg PO QAM 10/03/16 Apixaban [Eliquis 2.5 mg Tablet] 2.5 mg PO BID 12/24/16 B Complex & C No.20/Folic Acid [Bay Caps Softgel] 1 mg PO DAILY 12/24/16 Citalopram Hydrobromide [Celexa 20 mg Tablet] 20 mg PO DAILY 12/24/16 Collagenase Clostridium Hist. [Santyl Ointment 30 gm] 1 applic TP DAILY Insulin Glargine,Hum.rec.anlog [Lantus Insulin 100 Unit/mL] 35 unit SUBCUT Q12 12/24/16 Tiotropium Easton [Spiriva Handihaler 5 Cap/Kit (18 Mcg/Cap)] 1 cap IH DAILY Transfer Medications: Current Medications Acetaminophen (Tylenol 325 Mg Tablet) 650 mg PO Q4HP PRN PRN Reason: FOR PAIN OR TEMP Stop: 01/23/17 18:14 Albuterol (Ventolin 0.083% Neb 2.5 Mg/3 Ml Ampul) 2.5 mg NEB RTQ4HP PRN PRN Reason: FOR WHEEZING Stop: 01/23/17 18:14 Albuterol/Ipratropium (Duoneb 3 Ml Ampul) 3 ml NEB RTQ6 DARINEL Stop: 01/24/17 07:59 Last Admin: 12/26/16 08:45 Dose: 3 ml Aspirin (Ecotrin 81 Mg Ec Tablet) 81 mg PO DAILY DARINEL Stop: 01/24/17 09:59 Last Admin: 12/26/16 10:41 Dose: 81 mg Citalopram Hydrobromide (Celexa 20 Mg Tablet) 20 mg PO DAILY DARINEL Stop: 01/24/17 09:59 Last Admin: 12/26/16 10:41 Dose: 20 mg Collagenase (Santyl Ointment 30 Gm) 1 applic TP DAILY DARINEL Stop: 01/24/17 09:59 Last Admin: 12/26/16 10:43 Dose: 1 applic Dextrose (Dextrose Inj 50% Syringe (25 Gm/50 Ml)) 12.5 gm IV PRN PRN; Protocol PRN Reason: FOR BG 50-69 IN ALERT PATIENT Stop: 01/23/17 18:21 Last Admin: 12/26/16 05:49 Dose: 12.5 gm Dextrose (Dextrose Inj 50% Syringe (25 Gm/50 Ml)) 25 gm IV PRN PRN PRN Reason: Protocol Stop: 01/23/17 18:21 Doxazosin Mesylate (Cardura 4 Mg Tablet) 4 mg PO QHS [facility] Stop: 01/23/17 21:59 Last Admin: 12/25/16 21:46 Dose: 4 mg Ergocalciferol (Drisdol 50,000 Unit (1.25mg) Capsule) 50,000 unit PO Abdalla@1000 [facility] Stop: 01/28/17 09:59 Famotidine (Pepcid 20 Mg Tablet) 20 mg PO Q12 DARINEL Stop: 01/23/17 21:59 Last Admin: 12/26/16 10:42 Dose: 20 mg Glucagon (Glucagen Inj 1 Mg Vial) 1 mg IM PRN PRN; Protocol PRN Reason: Evaluate for BG < 70 Stop: 01/23/17 18:21 Glucose (Glutose 40% Gel 15 Gm Tube) 15 gm PO PRN PRN; Protocol PRN Reason: FOR BG 50-69 IN ALERT PATIENT Stop: 01/23/17 18:21 Glucose (Glutose 40% Gel 15 Gm Tube) 30 gm PO PRN PRN; Protocol PRN Reason: FOR BG < 50 IN ALERT PATIENT Stop: 01/23/17 18:21 Hydralazine HCl (Apresoline 50 Mg Tablet) 100 mg PO Q8 [facility] Stop: 01/23/17 21:59 Last Admin: 12/26/16 05:48 Dose: 100 mg Sodium Chloride (Nacl 0.9% 1000 Ml Iv Soln) 1,000 mls @ 125 mls/hr IV CONTINUOUS PRN PRN Reason: THIS MED IS NOT "PRN" Stop: 01/23/17 18:14 Last Admin: 12/26/16 05:49 Dose: 1,000 ml Ceftriaxone Sodium/Dextrose (Rocephin Rtu 1 Gm/D5w 50 Ml Premix) 50 mls @ 100 mls/hr IV DAILY [facility] Stop: 01/01/17 09:59 Last Admin: 12/26/16 10:42 Dose: 50 ml Insulin Glargine (Lantus Insulin Inj 300 Unit/3 Ml Pen) 20 unit SUBCUT Q12 DARINEL Stop: 01/25/17 09:59 Last Admin: 12/26/16 10:13 Dose: Not Given Insulin Human Lispro (Humalog Insulin 100 Unit/1 Ml 3 Ml Vial) 0 - 12 unit SUBCUT ACHSP PRN PRN Reason: Protocol Stop: 01/23/17 18:21 Lansoprazole (Prevacid 15 Mg Odt Tablet) 15 mg PO ACBRKFST [facility] Stop: 01/24/17 07:59 Last Admin: 12/26/16 10:42 Dose: 15 mg Multivit/Ca Carb/B Cmplx/FA/Prenat (Nephrocaps Multiple Vitamin Capsule) 1 cap PO DAILY [facility] Stop: 01/24/17 09:59 Last Admin: 12/26/16 10:41 Dose: 1 cap Ondansetron HCl (Zofran Inj/Pf 4 Mg/2 Ml Sdv) 4 mg IV Q8HP PRN PRN Reason: FOR NAUSEA/VOMITING Stop: 01/23/17 18:14 Ondansetron HCl (Zofran Odt 4 Mg Tablet) 4 mg PO Q8HP PRN PRN Reason: FOR NAUSEA/VOMITING Stop: 01/23/17 18:14 Oxycodone/Acetaminophen (Percocet 5-325 Mg Tablet) 1 tab PO Q6HP PRN Stop: 12/31/16 18:19 Pharmacy Profile Note (Medication Communication Order) 1 each MC .DOSE ADJUST DARINEL Stop: 01/23/17 23:44 Tiotropium Easton (Spiriva Handihaler 5 Cap/Kit (18 Mcg/Cap)) 1 cap IH DAILY DARINEL Stop: 01/24/17 09:59 Last Admin: 12/26/16 10:59 Dose: Not Given - Allergies Allergies/Adverse Reactions: PPD black rubber mix Allergy (Verified 08/05/16 00:06) - Diet/Activity Discharge Diet: Cardiac Hospital Course Hospital Course: 81-year-old gentleman with chronic renal failure who is a resident at a retirement. He had a 3 day history of anorexia, abdominal pain and diarrhea. He was transported to the emergency room and was found to have acute on chronic renal failure with hyperkalemia. Patient did not have any peaked T waves and he was just treated with IV fluids. He has had resolution of his anorexia and gastroenteritis. His creatinine has improved and is back to his baseline now. The patient on the night of his first hospital stay developed symptomatic bradycardia with heart rate going down to the 30s and development of a third- degree heart block. He had been on metoprolol for his rate control for his atrial fibrillation. The patient has not had any further 3rd degree heart block but has had weinkebach second-degree AV block. The patient was evaluated by cardiology who recommended just stopping the metoprolol. The patient has been in and out of atrial fibrillation and flutter. He has been on Eliquis however this is being held in anticipation that he may need surgery. During his episode of heart block he did have some respiratory difficulties and was placed on a BiPAP. We are in the process of weaning off. The patient does have chronic osteomyelitis of his right foot. Surgical consultation was done and they felt that the patient should have general anesthesia for debridement of his osteomyelitis of the foot. Our anesthesiologists however did not want to anesthesia given his recent third-degree heart block. That we are transferring to [facility]. Dr. Giselle Bell is the accepting physician. Physical Exam Vital Signs: Temp Pulse Resp BP Pulse Ox 98.2 F 89 16 113/64 99 12/26/16 10:03 12/26/16 10:00 12/26/16 10:03 12/26/16 10:03 12/26/16 10:03 Intake & Output 12/25/16 12/26/16 12/27/16 06:59 06:59 06:59 Intake Total 1033 3318 Output Total 2060 360 Balance 1033 1258 -360 Weight 93.7 kg 92.4 kg General appearance: PRESENT: no acute distress Eye exam: PRESENT: conjunctiva pink. ABSENT: scleral icterus Ear exam: PRESENT: bleeding Mouth exam: PRESENT: moist, tongue midline Neck exam: ABSENT: JVD Respiratory exam: PRESENT: clear to auscultation cornell. ABSENT: rales, rhonchi, wheezes Cardiovascular exam: PRESENT: irregular rhythm, systolic murmur GI/Abdominal exam: PRESENT: normal bowel sounds, soft. ABSENT: distended, guarding, mass, organolmegaly, rebound, tenderness Extremities exam: PRESENT: other - Dressing in place on the right. ABSENT: calf tenderness, clubbing, pedal edema Neurological exam: PRESENT: alert, awake, oriented to person, oriented to place , oriented to time, oriented to situation, CN II-XII grossly intact. ABSENT: motor sensory deficit Psychiatric exam: PRESENT: appropriate affect Skin exam: PRESENT: other - Dressing in place on the right foot. Results Laboratory Results: 12/26/16 03:44 12/26/16 03:44 12/26/16 12/26/16 03:44 03:44 WBC 5.6 RBC 4.42 Hgb 12.0 L Hct 37.5 L MCV 85 MCH 27.2 MCHC 32.1 RDW 18.0 H Plt Count 96 L Seg Neutrophils % 85.3 H Lymphocytes % 9.1 L Monocytes % 5.0 Eosinophils % 0.1 Basophils % 0.5 Absolute Neutrophils 4.8 Absolute Lymphocytes 0.5 Absolute Monocytes 0.3 Absolute Eosinophils 0.0 Absolute Basophils 0.0 Sodium 133.6 L Potassium 4.3 Chloride 100 Carbon Dioxide 26 Anion Gap 8 BUN 62 H D Creatinine 1.69 H Est GFR ( Amer) 48 L Est GFR (Non-Af Amer) 39 L Glucose 94 Calcium 7.7 L 12/24/16 21:23 Nasophary (Mrsa Only) MRSA Surveillance Culture - Final MRSA RECOVERED 12/24/16 12/25/16 12/25/16 20:34 00:25 06:33 Troponin I 0.094 0.119 0.116 Impressions: Abdomen/Pelvis CT 12/24/16 00:00 IMPRESSION: Left renal calcification is identified which may be vascular rather than representing a nonobstructing renal calculus. No other significant intra-abdominopelvic abnormalities were identified. Other findings as noted above Chest X-Ray 12/24/16 13:58 IMPRESSION: Mild patchy asymmetric edema or infiltrate in the left lung. Cardiomegaly with low lung volumes generally. Abdomen Ultrasound 12/24/16 14:34 IMPRESSION: FATTY INFILTRATION OF THE LIVER. Multiple gallstones are identified. There is some mild thickening of the gallbladder figueroa. The possibility of cholecystitis should be considered. Other findings as noted above Plan Discharge Plan: Transfer to [facility]. Dr. Giselle Bell is accepting physician Time Spent: Greater than 30 Minutes
[2016-12-26] MEDS ORDERED: FUROSEMIDE INJ/PF 40 MG/4 ML SDV IV SCH (12:00)
--- NOTE | 2016-12-26 12:33 | RADIOLOGY REPORT (SQ) ---
EXAM DESCRIPTION: CHEST SINGLE VIEW COMPLETED DATE/TIME: 12/26/2016 12:18 pm REASON FOR STUDY: l pneumonia COMPARISON: AP CHEST 07/20/2016, 10/12/2016, 12/24/2016 TWO-VIEW CHEST 12/24/2016 EXAM PARAMETERS: NUMBER OF VIEWS: One view. TECHNIQUE: Single frontal radiographic view of the chest acquired. RADIATION DOSE: NA LIMITATIONS: None. FINDINGS: LUNGS AND PLEURA: Asymmetric increased interstitial markings left lung, asymmetric edema v ersus atypical pneumonia. This is similar compared to films from 12/24/2016. No right-sided infiltrates. No right or left pneumothorax or pleural effusion. MEDIASTINUM AND HILAR STRUCTURES: No masses. Contour normal. HEART AND VASCULAR STRUCTURES: No cardiomegaly BONES: No acute findings. HARDWARE: None in the chest. OTHER: No other significant finding. IMPRESSION: Asymmetric increased interstitial markings on the left, asymmetric edema versus atypical pneumonia. This is similar compared to 12/24/2016. TECHNICAL DOCUMENTATION: JOB ID: [id number]
[2016-12-26] MEDS ORDERED: METOCLOPRAMIDE HCL INJ/PF 10 MG/2 ML SDV IV SCH (14:00)
--- NOTE | 2016-12-26 14:03 | PROGRESS NOTE E ---
Progress Note NAME: CHARLA WEBB : 1935 AGE: 81Y DATE: 12/26/2016 ROOM: 608 SUBJECTIVE: The patient states that he has no shortness of breath, cough, chest pain, or discomfort. He is able to lie down flat. There is no pedal edema. The patient continues to be in atrial flutter. There is no evidence of complete heart block. The patient's heart rate is controlled without any AV or SA park blocking agents. There are no TIA or CVA symptoms. OBJECTIVE: GENERAL: On examination, the patient is mildly overweight, in no acute distress. He is well groomed. He is on CPAP with an FIO2 of 28%. VITAL SIGNS: His temperature is 98.2 degrees Fahrenheit, pulse of 85 beats per minute, blood pressure is 113/64, respirations of 15 per minute, O2 sats are 100% on CPAP with an FIO2 of 28%. HEAD: Atraumatic, normocephalic. EYES: Pupils are equal, round, regular, and reactive to light and accommodation. Extraocular movements are normal. There is no conjunctival pallor. There is no sclerae icterus. EARS, NOSE, THROAT: Negative. NECK: Supple. There is no JVD. Carotids are equal. There are no bruits. There is no goiter. There is no lymphadenopathy. Trachea is central. LUNGS: There are no accessory muscles of respiration in use. There are a few dry crackles in the left lung. There is rhonchi present. There is diminished air entry, prolonged expiration . There is hyperresonance on percussion. HEART: S1 and S2 are heard. S1 is of variable intensity. There is no S3 gallop. There is no S4 gallop. There is a systolic murmur in the left sternal border and the apex. There is no rub. ABDOMEN: Soft and nontender. There is no hepatosplenomegaly. Bowel sounds are well heard. There are no tender areas or masses. EXTREMITIES: Femorals are deep. Leg pulses are diminished. There is no pedal edema. There are no femoral bruits. Femorals are diminished. There is no DVT or cellulitis. There is no cyanosis or clubbing. There is an open wound on the lateral aspect of the right leg. The patient is supposed to have osteomyelitis and the patient is being scheduled for possible debridement under anesthesia, but Anesthesia does not feel comfortable and the patient is being transferred to [facility]. INTAKE/OUTPUT: His 24-hour intake is 3,318 mL; output is 2,060 mL. DIAGNOSTIC DATA: The patient's chest x-ray shows asymmetric markings on the left side, consistent with pneumonia, most likely left interstitial pneumonitis. The patient's laboratory data shows a white count of 5,600; hemoglobin is 12; hematocrit is 37.5; and platelet count is 96,000. The patient's sodium is 133.6, potassium 4.3, chloride 100, CO2 is 26. The patient's BUN is 62, creatinine is 1.69, GFR is reduced at 48 mL, which is stage 3 chronic kidney disease. The patient's glucose is 94, calcium is 7.7. IMPRESSION: 1. RECENT COMPLETE HEART BLOCK, MOST LIKELY SECONDARY TO THE PATIENT'S HYPERKALEMIA AND THE PATIENT BEING ON BETA ALIA. NOW, THE PATIENT HAS CONVERTED TO ATRIAL FLUTTER. NO FURTHER EVIDENCE OF COMPLETE HEART BLOCK. NOTE THAT THE PATIENT'S POTASSIUM IS NOW BACK TO NORMAL. 2. ATRIAL FLUTTER WITH A CONTROLLED VENTRICULAR RESPONSE. 3. HISTORY OF HYPERKALEMIA, WITH NOW POTASSIUM BEING NORMAL. 4. ACUTE ON CHRONIC RENAL FAILURE. AT PRESENT, CHRONIC KIDNEY DISEASE, STAGE 3. 5. HYPERTENSION. 6. BORDERLINE ELEVATED TROPONIN-I IN THE REGION [id number] MT, ALTHOUGH IT HAS NOT GONE ABOVE THE CUTOFF VIDAL OF 0.12, MOST LIKELY SECONDARY TO THE PATIENT'S COMPLETE HEART BLOCK, ATRIAL FLUTTER, AND THE PATIENT'S ACUTE RENAL FAILURE. 7. COPD. 8. DIABETES MELLITUS TYPE 2. 9. OBSTRUCTIVE SLEEP APNEA, ON BIPAP. 10. PNEUMONIA, MOST LIKELY OF THE LEFT LUNG. SEEMS TO BE LIKE INTERSTITIAL PNEUMONITIS. 11. DEPRESSION. 12. INFECTION AND OSTEOMYELITIS OF THE RIGHT FOOT FOR SURGICAL DEBRIDEMENT. RECOMMENDATIONS: 1. Note that the patient earlier had complete heart block, which was systolic. The complete heart block was because of the patient's hyperkalemia and the patient being on beta alia. Hence, at present, there is no indication for permanent pacemaker in this patient since the patient now is in atrial flutter. Unless the patient goes into complete heart block again, or if the patient's heart rate goes fast and the patient has to be started on beta alia and this goes to bradycardia, then the patient may need a permanent pacemaker. At present, no indication for permanent pacemaker. 2. The patient will be an acceptable cardiac risk for the surgical debridement under general or spinal anesthesia. 3. Continue antibiotics for pneumonia. Continue Eliquis. Continue anteversion. Hold the patient's metoprolol. Note that 30 minutes were spent on this patient with more than 50% of the time spent in direct patient care and also review of the patient's medications. Also discussed with the other attending physicians on the case. Note, since Anesthesia is not comfortable giving the patient anesthesia for the debridement, the patient is being transferred to [facility]. Will sign off. The patient is a patient of mine. He will follow up with me in the clinic. Note, more than 50% of the time was spent in direct patient care. Thanking you. DICTATING PHYSICIAN: NEFTALI IBARRA M.D. [id number] PHY#: [id number] ID: [id number] JOB#: [id number] ACCT: [id number] cc: > MTDD
--- NOTE | 2016-12-26 15:01 | PDOC PROGRESS REPORT ---
Subjective Progress Note for:: 12/26/16 Subjective:: Seen in ICU today.More awake and responsive.Denies any chest pains, dyspnea. As per discussions with RN, he has a very badly infected right foot and as per surgeons/ anesthesiology he is high risk for this institution given his dysrythmia/ block, and is in the process of being transferred to tertiary care. Physical Exam Vital Signs: Temp Pulse Resp BP Pulse Ox 98.1 F 74 16 128/57 H 100 12/26/16 12:00 12/26/16 12:00 12/26/16 12:00 12/26/16 12:00 12/26/16 12:00 Intake & Output 12/25/16 12/26/16 12/27/16 06:59 06:59 06:59 Intake Total 1033 3318 591 Output Total 2060 560 Balance 1033 1258 31 Weight 93.7 kg 92.4 kg Cardiovascular exam: PRESENT: +S1, +S2 GI/Abdominal exam: PRESENT: soft, tenderness - left lower quadrant. ABSENT: diminished bowel sounds, distended, organomegaly Results Laboratory Results: 12/26/16 03:44 12/26/16 03:44 12/26/16 12/26/16 03:44 03:44 WBC 5.6 RBC 4.42 Hgb 12.0 L Hct 37.5 L MCV 85 MCH 27.2 MCHC 32.1 RDW 18.0 H Plt Count 96 L Seg Neutrophils % 85.3 H Lymphocytes % 9.1 L Monocytes % 5.0 Eosinophils % 0.1 Basophils % 0.5 Absolute Neutrophils 4.8 Absolute Lymphocytes 0.5 Absolute Monocytes 0.3 Absolute Eosinophils 0.0 Absolute Basophils 0.0 Sodium 133.6 L Potassium 4.3 Chloride 100 Carbon Dioxide 26 Anion Gap 8 BUN 62 H D Creatinine 1.69 H Est GFR ( Amer) 48 L Est GFR (Non-Af Amer) 39 L Glucose 94 Calcium 7.7 L 12/24/16 21:23 Nasophary (Mrsa Only) MRSA Surveillance Culture - Final MRSA RECOVERED 12/24/16 12/25/16 12/25/16 20:34 00:25 06:33 Troponin I 0.094 0.119 0.116 Impressions: Abdomen/Pelvis CT 12/24/16 00:00 IMPRESSION: Left renal calcification is identified which may be vascular rather than representing a nonobstructing renal calculus. No other significant intra-abdominopelvic abnormalities were identified. Other findings as noted above Abdomen Ultrasound 12/24/16 14:34 IMPRESSION: FATTY INFILTRATION OF THE LIVER. Multiple gallstones are identified. There is some mild thickening of the gallbladder figueroa. The possibility of cholecystitis should be considered. Other findings as noted above Chest X-Ray 12/26/16 12:00 IMPRESSION: Asymmetric increased interstitial markings on the left, asymmetric edema versus atypical pneumonia. This is similar compared to 12/24/2016. Assessment & Plan - Diagnosis (1) CKD (chronic kidney disease) stage 3, GFR 30-59 ml/min Plan: from DM.Now with acute injury in the setting of dehydration and possible ATN from uti/ Diabetic right foot/ Osteomyelitis.Currently back to base line. (3) ZULEYKA (acute kidney injury) Plan: . Non Oliguric. from dehydration and ATN. Improving. Continue ivf and abx. (4) Abnormal liver function tests Plan: as per hospitalist. 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 (10) Hyperkalemia Is this a current diagnosis for this admission?: YesPlan: corrected with appropriate measures.Continue IVF (11) Foot osteomyelitis, right Qualifiers: Osteomyelitis type: subacute Qualified Code(s): M86.271 - Subacute osteomyelitis, right ankle and foot Is this a current diagnosis for this admission?: YesPlan: For definitive treatment and being transferred to tertiary center.
[2016-12-26 19:02] VITALS: BP 141/67
[2016-12-26] MEDS ORDERED: DOXAZOSIN MESYLATE 4 MG TABLET PO SCH (22:00)
[2016-12-29] MEDS ORDERED: ERGOCALCIFEROL (VITAMIN D2) 50000 UNIT (1.25 MG) CAPSULE PO SCH (10:00)
== END 2016-12-26 19:35 | disposition short-term general hospital (02) | DRG 682 ==
LOC: ER 13:01 → UNDOADMIN 17:49 → EH 17:49 → 3W 19:24 → EH 19:24 → ICU 21:05 → 3W 21:05
PROVIDERS: ADMIT Internal Medicine; ATTEND Internal Medicine
DX: N17.0 Acute kidney failure with tubular necrosis (principal); J18.9 Pneumonia, unspecified organism; N39.0 Urinary tract infection, site not specified; I50.32 Chronic diastolic (congestive) heart failure; M86.171 Other acute osteomyelitis, right ankle and foot; I44.2 Atrioventricular block, complete; E87.5 Hyperkalemia; I48.2 Chronic atrial fibrillation; I11.0 Hypertensive heart disease with heart failure; E78.5 Hyperlipidemia, unspecified; J44.9 Chronic obstructive pulmonary disease, unspecified; C61 Malignant neoplasm of prostate; R94.5 Abnormal results of liver function studies; L97.513 Non-pressure chronic ulcer of other part of right foot with necrosis of muscle; K80.80 Other cholelithiasis without obstruction; E55.9 Vitamin D deficiency, unspecified; N40.0 Benign prostatic hyperplasia without lower urinary tract symptoms; K21.9 Gastro-esophageal reflux disease without esophagitis; E11.65 Type 2 diabetes mellitus with hyperglycemia; N18.3 Chronic kidney disease, stage 3 (moderate); D63.1 Anemia in chronic kidney disease; M10.9 Gout, unspecified; G47.33 Obstructive sleep apnea (adult) (pediatric); E66.01 Morbid (severe) obesity due to excess calories; Z68.28 Body mass index [BMI] 28.0-28.9, adult; Z79.01 Long term (current) use of anticoagulants; Z79.4 Long term (current) use of insulin; Z79.51 Long term (current) use of inhaled steroids; Z79.899 Other long term (current) drug therapy; Z86.14 Personal history of Methicillin resistant Staphylococcus aureus infection; Z86.19 Personal history of other infectious and parasitic diseases; Z87.891 Personal history of nicotine dependence
CPT/HCPCS: 36415; 71010; 71020; 74176; 76705; 80048; 80053; 80076; 81001; 82140; 82550; 82553; 82962; 83605; 83690; 83735; 84132; 84484; 85025; 85610; 85730; 87040; 93005; 93010; 94640; 94660; 96365; 96367; 96375; 99285; J0461; J0610; J0696; J1815; J1940; J2765; J3490; J7030; J7060; J7620